=== PATIENT | female | born 1940 | race Caucasian/White ===

== ENCOUNTER → 2018-10-22 13:54 | Outpatient (CLI) | payer MEDICARE, OTHER, BC, SELFPAY ==
--- NOTE | 2018-10-22 14:00 | US_ITS ---
STUDY: RENAL ULTRASOUND - COMPLETE REASON FOR EXAM: Female, 77 years old. Renal insufficiency. TECHNIQUE: Ultrasound evaluation of the kidneys was performed with real-time and static means-scale imaging. COMPARISON: None. FINDINGS: RIGHT KIDNEY: Normal location of the right kidney, which is normal in size. The right kidney measures 9.5 cm. There is a normal cortex of the right kidney. The renal cortex measures 1.3 cm. There is no right renal mass or cyst. There are no right renal calculi. There is no right hydronephrosis. DISTAL RIGHT URETER: There is non-visualization of the distal right ureter. There is no demonstrated right ureterovesical junction calculus. There is a visualized right ureteral jet. LEFT KIDNEY: Normal location of the left kidney, which is normal in size. The left kidney measures 9.0 cm. There is a normal cortex of the left kidney. The renal cortex measures 1.2 cm. There is no left renal mass or cyst. There are no left renal calculi. There is no left hydronephrosis. DISTAL LEFT URETER: There is non-visualization of the distal left ureter. There is no demonstrated left ureterovesical junction calculus. There is a visualized left ureteral jet. BLADDER: The distended urinary bladder has a volume of 128 ml. . There is a normal wall thickness of the distended urinary bladder. There is no demonstrated mass within the urinary bladder. There are no demonstrated bladder calculi. US/Kidney and Bladder IMPRESSION: Normal ultrasound of the kidneys and urinary bladder. Electronically Signed: Umberto Andrade DO at 18:50 EDT Tel [phone], Service support ,
== END ==
PROVIDERS: Family Provider Family Medicine; PCP Family Medicine; Referring Provider Urology; Visit Provider Urology
DX: N28.9 Disorder of kidney and ureter, unspecified (principal)
CPT/HCPCS: 76770

== ENCOUNTER 2019-06-16 11:37 | Inpatient (IN) | payer MEDICARE, OTHER, BC, SELFPAY ==
[2019-06-16] VITALS (27 sets, daily range): BP systolic 90–136; BP diastolic 33–77; PULSE 12–96; RESP 8–24; TEMP 35.9–36.6; O2SAT 44–100; BMI 41.8; BMI 40.6
[2019-06-16] MEDS: Sodium Bicarbonate 8.4% 50 ML Syringe 50 MEQ IV (11:37)
[2019-06-16] MEDS: Calcium Chloride 1 GM/10 ML Syringe IV ×2 (11:37→11:45)
--- NOTE | 2019-06-16 11:40 | EKG12_ITS ---
Test Reason : Blood Pressure : / mmHG Vent. Rate : 058 BPM Atrial Rate : 078 BPM P-R Int : 000 ms QRS Dur : 150 ms QT Int : 438 ms P-R-T Axes : 000 118 -19 degrees QTc Int : 429 ms Wide QRS rhythm Right axis deviation Non-specific intra-ventricular conduction block Abnormal ECG Confirmed by MICHELLE BALTAZAR ([id number]), editorial manager BRITTNEY JACQUES ([id number]) on 06/19/2019 1:21:52 PM Referred By: NATTY Confirmed By:MICHELLE BALTAZAR
--- NOTE | 2019-06-16 11:44 | RAD_ITS ---
STUDY: X-RAY CHEST REASON FOR EXAM: Female, 78 years old. CENTRAL LINE PLACEMENT, ETT PLACEMENT, OG PLACEMENT TECHNIQUE: Single AP portable view of the chest. COMPARISON: None. FINDINGS: A right-sided central line has been placed. The tip is in the right atrium. An endotracheal tube is in situ. The tip is at the level of the lionel. It should be withdrawn approximately 3.5 cm. A nasogastric tube is seen with the tip in the body of the stomach. Small left pleural effusion with underlying atelectasis. Blunting of the right costophrenic angle. Normal size heart. Normal mediastinum and analisa. Normal visualized pulmonary arteries. There is atherosclerotic calcification of the aortic arch with tortuosity. There are diffuse degenerative changes of the visualized thoracic spine. There is degenerative osteoarthritis of the bilateral shoulders. There is no demonstrated abnormality of the visualized soft tissue structures of the upper abdomen. RAD/CXR for Line Placement IMPRESSION: The tip of the right central catheter is in the right atrium. The tip of the endotracheal tube is at the level of the lionel. It should be withdrawn approximately 3.5 cm. Small bilateral effusions with increased markings at the left lung base. Electronically Signed: Yonatan Howe, at 13:09 EST , Service support ,
--- NOTE | 2019-06-16 11:44 | CM.ED ---
Social Work Consult: Support Informant: Self-Referral Met with patient family. Introduced self and social service agency director role. Active listening and support provided. Per patient daughter, Iman patient is from [facility] and has been there for the past three days. Unclear if the plan is for patient to be long-term at [facility]. Maxwell Kaur MSW, DAREN
[2019-06-16] MEDS: Insulin Lispro 5 UNIT in Syringe 0 ML 3 UNIT IV (11:45)
--- NOTE | 2019-06-16 11:45 | EKG12_ITS ---
Test Reason : Blood Pressure : / mmHG Vent. Rate : 080 BPM Atrial Rate : 267 BPM P-R Int : 000 ms QRS Dur : 176 ms QT Int : 422 ms P-R-T Axes : 000 124 -32 degrees QTc Int : 486 ms Atrial fibrillation Non-specific intra-ventricular conduction block Lateral infarct , age undetermined Abnormal ECG Confirmed by MICHELLE BALTAZAR ([id number]), publication editor HIGINIO CASTAÑEDA ([id number]) on 06/19/2019 8:25:19 AM Referred By: NATTY Confirmed By:MICHELLE BALTAZAR
--- NOTE | 2019-06-16 11:53 | EKG12_ITS ---
Test Reason : Blood Pressure : / mmHG Vent. Rate : 093 BPM Atrial Rate : 100 BPM P-R Int : 000 ms QRS Dur : 164 ms QT Int : 454 ms P-R-T Axes : 000 133 -38 degrees QTc Int : 564 ms Suspect arm lead reversal, interpretation assumes no reversal Wide QRS rhythm Non-specific intra-ventricular conduction block Lateral infarct , age undetermined Abnormal ECG Confirmed by MICHELLE BALTAZAR ([id number]), research editor BRITTNEY JACQUES ([id number]) on 06/19/2019 1:21:41 PM Referred By: NATTY Confirmed By:MICHELLE BALTAZAR
[2019-06-16 11:58] LABS: Absolute Lymphocyte Count 1.64 X10^3/uL (0.83-4.51); Absolute Neutrophil Count 13.4 X10^3/uL (2.0-7.7); Basophil# 0.05 X10^3/uL; Basophil% 0.3 % (0-1); Eosinophil# 0.01 X10^3/uL; Eosinophils% 0.1 % (0-5); Hematocrit 30.1 % (37-47); Hemoglobin 8.9 g/dL (12.0-15.0); Lymphocyte # 1.64 X10^3/ul (4.0); Lymphocyte % 10.2 % (19-41); Mean Corp Hgb Conc 29.6 g/dL (32-36); Mean Corpuscular Hgb 31.9 pg (27.0-32.0); Mean Corpuscular Volume 107.9 fL (81-99); Mean Platelet Vol. 10.2 fl (6.2-12.0); Monocyte# 0.84 X10^3/uL; Monocyte% 5.2 % (0-10); NRBC Flagged by Analyzer 0.4 % (0-5); Neutrophil # 13.38 X10^3/uL (2.7-7.7); Neutrophil % 83.5 % (47-70); POSITIVE MORPHOLOGY YES; Platelet Count 449 K/mm3 (150-450); RBC Distribution Width CV 21.1 % (11.6-14.6); RBC Distribution Width SD 82.2 fl (35.1-43.9); Red Blood Count 2.79 M/mm3 (4.2-5.4)
[2019-06-16 12:00] LABS: Differential Indicated SCAN CRITERIA MET
[2019-06-16] MEDS: Etomidate 20 MG/10 ML Vial IV (12:00)
[2019-06-16 12:05] LABS: Prothrombin Time (Protime)PT. 36.2 SECONDS (11.7-14.9)
[2019-06-16] MEDS: fentaNYL 100 MCG/2 ML Ampul 50 MCG IV (12:05)
[2019-06-16 12:06] LABS: Partial Thromboplast Time 46.3 Seconds (24.1-36.2)
[2019-06-16 12:07] LABS: International Normalized Ratio 3.6
[2019-06-16] MEDS: Etomidate 20 MG/10 ML Vial 10 MG IV (12:14)
[2019-06-16 12:18] LABS: Anisocytosis 1+
--- NOTE | 2019-06-16 12:18 | ED.DCSUM_ITS ---
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 Location: Presents by squad from nursing facility Current Severity: Severe Maximum Severity: Severe Worsened by: Potassium 7.2 Relieved by: Nothing Associated Symptoms: Unable to determine Narrative: Woman who presents from nursing facility because of hyperkalemia. She became unresponsive in route. EKG that was sent by paramedics show a wide-complex bradycardic rhythm consistent with hyperkalemia. They were instructed to give 1 amp of calcium chloride and bicarb. Since a IV was not established she received nothing prior to presentation. She was moaning when she arrived. She appears pale and ashen with mottling of the extremities. Prior similar symptoms: No Recent Illness/Hospitalization: Yes - Past Medical History (1) History of respiratory failure with hypo Status: Acute (2) Acute kidney injury Status: Acute (3) Type 1 diabetes Status: Acute (4) Hypertension Status: Chronic (5) Hyperlipidemia Status: Acute (6) Paroxysmal atrial fibrillation Status: Acute (7) Sick sinus syndrome Status: Acute (8) Anticoagulant long-term use Status: Acute (9) Anemia, unspecified Status: Acute Past Medical History - Allergies and Home Meds Allergies/Adverse Reactions: Allergies Penicillins [PCN] Allergy (Verified 06/16/19 11:51) Other shellfish derived Allergy (Verified 06/16/19 11:53) Other Prior records reviewed: Yes - Records from nursing facility were reviewed Surgical History: noncontributory Lives: Skilled Nursing Review of Systems ROS: Unable to Obtain Physical Exam Vital Signs/Narrative: Vital Signs Temp Pulse Resp BP Pulse Ox 06/16/19 12:00 98 06/16/19 11:47 98 06/16/19 11:44 96.7 F L 84 22 H 136/77 H 98 06/16/19 11:39 91 24 H 136/77 H 100 Inital Vital Signs reviewed: Yes - Blood pressure was obtained after IV calcium chloride, 1 amp of bicarb General: Well nourished, Well developed, Obese, Acute Distress Head: Normocephalic, Atraumatic Eyes: Perrl, EOMI, Pale conjunctiva. Negative for: Scleral icterus ENT: TM's clear, Dry mucous membranes Neck: Supple, Nontender, No lymphadenopathy, No JVD Cardiovascular: Bradycardia Respiratory: Chest nontender, Rales Abdomen: Soft, Nondistended, Hypoactive bowel sounds Extremities: No edema Skin: Pallor, - - Mottled and ashed Neurological: - - To determine GCS 6. Negative for: Normal Gait Diagnostic/Tx/Re-eval Chest X-Ray - ED: 1 View, Read by ED Physician, - - Tracheal tube is 1 cm above the lionel. The orogastric tube is in proper position. Cardiac silhouette and cardiac size are within normal limits. There is no infiltrate or evidence of congestive heart failure. There is no effusion. There is no mention pneumothorax. Osseous structures reveal degenerative changes. 06/16/19 11:44 Chest 1 View (Portable) [RAD] Stat Laboratory Results 06/16/19 06/16/19 06/16/19 11:45 11:45 11:45 WBC 16.0 H RBC 2.79 L Hgb 8.9 L Hct 30.1 L MCV 107.9 H MCH 31.9 MCHC 29.6 L RDW Std Deviation 82.2 H RDW Coeff of Alicia 21.1 H Plt Count 449 MPV 10.2 Immature Gran % (Auto) 0.700 Neut % (Auto) 83.5 H Lymph % (Auto) 10.2 L Yates % (Auto) 5.2 Eos % (Auto) 0.1 Baso % (Auto) 0.3 Absolute Neuts (auto) 13.4 H Absolute Lymphs (auto) 1.64 Nucleated RBC % 0.4 Anisocytosis 1+ PT 36.2 H INR 3.6 H* APTT 46.3 H Sodium 135 L Potassium 7.5 H* Chloride 102 Carbon Dioxide 28.0 Anion Gap 5 BUN 52 H Creatinine 2.43 H Estim Creat Clear Calc 17.57 Est GFR (MDRD) Af Amer 25 L Est GFR (MDRD) Non-Af 20 L BUN/Creatinine Ratio 21.4 H Glucose 223 H Lactic Acid Calcium 10.9 H Total Bilirubin 1.40 H AST 119 H ALT 82 H Alkaline Phosphatase 165 H Troponin I 0.015 Total Protein 8.1 Albumin 1.8 L Globulin 6.3 H Albumin/Globulin Ratio 0.3 L 06/16/19 11:45 WBC RBC Hgb Hct MCV MCH MCHC RDW Std Deviation RDW Coeff of Alicia Plt Count MPV Immature Gran % (Auto) Neut % (Auto) Lymph % (Auto) Yates % (Auto) Eos % (Auto) Baso % (Auto) Absolute Neuts (auto) Absolute Lymphs (auto) Nucleated RBC % Anisocytosis PT INR APTT Sodium Potassium Chloride Carbon Dioxide Anion Gap BUN Creatinine Estim Creat Clear Calc Est GFR (MDRD) Af Amer Est GFR (MDRD) Non-Af BUN/Creatinine Ratio Glucose Lactic Acid 4.5 H* Calcium Total Bilirubin AST ALT Alkaline Phosphatase Troponin I Total Protein Albumin Globulin Albumin/Globulin Ratio INR is 3.6 which is elevated most likely secondary to Coumadin. This may be elevated because she is on antibiotics. Lactate is elevated 4.5 and consistent with poor perfusion. Potassium is 7.5 with a creatinine of 2. 4 3.. Patient's QRS complex has improved. EKG that was obtained after treatment reveals atrial fibrillation with ventricular rate of 80. There is a nonspecific inverted ventricular conduction delay. There is no ossific ST-T wave changes noted. There is no old for comparison. Patient complexes changed. The QRS complex widened to 176 ms. She is still in atrial fibrillation. She received an additional amp of calcium chloride. - Medical Decision Making On arrival an IO was placed right proximal humerus. Calcium chloride and 1 amp of bicarb was administered. Since patient is requiring continuous treatment and will need blood draws a right subclavian line was placed. Prior to starting the right subclavian line patient respiratory effort diminished. Pulse ox dropped. She became less responsive. Patient was prepped for oral tracheal intubation. She was easily orotracheal intubated with a 7.5 Slovak endotracheal tube Once airway was secured patient was prepped draped in a sterile manner and per hospital protocol for placement of a subclavian line. Prior to placing the subclavian line attempt was made at external jugular which was unsuccessful. The right subclavian vein was cannulated successfully on first attempt on the way in. Using Salinger technique 7.5 Slovak triple-lumen was placed. Blood was aspirated from all 3 ports. Will obtain x-ray to confirm placement of endotracheal tube, orogastric tube and right subclavian line. Case was discussed with the percussion instructor. He is aware that the electrolyte panel was still pending. Prior to intubation and placement of central line daughter who is the POA was informed of her mother's condition. She states her mother is a full go. She understands the severity of her illness. - Critical Care Time Critical care time (excluding procedures): 30-74 minutes, Discussing w/Patient &/or Family/Data Entry Associate - Case was discussed with daughter who is the POA. She was informed of the criticalness and severity of mother's illness., Discussing w/Consultants - Spoke with Dr. El Cruz and hospitalist., Arranging Admission or Transfer, Performing Direct Patient Care at Bedside - Patient for hyperkalemia. Procedures Procedure(s): 1. IO was placed proximal right humerus to administer calcium chloride and bicarb because patient was bradycardic with wide complex QRS. The QRS complex improved after the amp of calcium chloride and amp of bicarb. 2. Patient was intubated with a 7.5 Slovak endotracheal tube using glide scope and was pretreated with 20 mg of etomidate and placed on a nonrebreather mask. She was easily orotracheally abated first pass. There is appropriate color change on the capnometer. Breath sounds are noted bilaterally. 3. Orogastric tube was placed by me. 4. Right subclavian line was placed for central venous access. Guidelines were adhered to. All members in the room were wearing mask and capped. The right subclavian line was cannulated specimen on the way in. Using Salinger technique 7.5 Slovak triple-lumen was placed. Blood was aspirated from all 3 ports. Line was sutured in place. Will obtain chest x-ray to confirm placement of endotracheal tube, OG and right subclavian triple-lumen line. ED Disposition - Plan for ED Patient: Disposition: Acute Care [facility] Diagnosis: Acute hyperkalemia, Shock, cardiogenic, Renal failure (ARF), acute on chronic, Hyperglycemia due to type 1 diabetes mellitus, Anemia, unspecified, Atrial fibrillation by electrocardiogram
[2019-06-16 12:25] LABS: ALB/GLOB Ratio 0.3 RATIO (0.9-2.4); AST(SGOT) 119 U/L (15-37); Alanine Aminotransfer ALT/SGPT 82 U/L (13-56); Albumin, Serum 1.8 g/dL (3.2-5.0); Alkaline Phosphatase 165 U/L (45-117); Anion Gap 5 (5-15); BUN 52 mg/dL (7-18); BUN/Creat Ratio 21.4 RATIO (10-20); Calcium,Total 10.9 mg/dL (8.5-10.1); Chloride 102 mmol/L (98-107); Creatinine, Serum 2.43 mg/dL (0.55-1.02); EST Glomerular Filtration Rate 20 mL/min (>60); Est Glom Filt Rate - Afr Amer 25 mL/min (>60); Estimated Creatinine Clearance 17.57 ml/min; Globulin 6.3 g/dL (2.2-4.2); Glucose 223 mg/dL (74-106); Lactic Acid 4.5 mmol/L (0.4-1.9); Potassium 7.5 mmol/L (3.5-5.1); Protein, Total 8.1 g/dL (6.4-8.2); Sodium Level 135 mmol/L (136-145)
[2019-06-16] MEDS: fentaNYL drip 100 ML 2.5 MCG IV (12:25)
--- NOTE | 2019-06-16 12:36 | ED.RN ---
Addendum entered by Mary Harvey 06/16/19 15:18: verbal order at [address] Hill to titrate from 25 mcg/hr to 50 mcg/hr of fentanyl- see MAR. Addendum entered by Mary Harvey 06/16/19 14:02: Original Note: notified MD of pt restless and breathing over the ventilator. order to follow fentanyl titration.
--- NOTE | 2019-06-16 13:00 | ED.RN ---
PT suctioned per family request. Iman VALLE and Granddaughter Umm, attentive at bedside. Dr. Hill in to speak with them about pt's POC.
[2019-06-16] MEDS: Propofol 200 MG/20 ML Vial 40 MG IV BOLUS ×3 (13:03→14:01)
--- NOTE | 2019-06-16 13:11 | ED.RN ---
IO REMOVED BY WILBERT SANTORO
--- NOTE | 2019-06-16 13:15 | ED.RN ---
noted that pt has spiralactone and potassium ordered on JUL from [facility]. notified.
--- NOTE | 2019-06-16 13:31 | ED.RN ---
called report to Phyllis in ICU
[2019-06-16] MEDS: Propofol 10MG/Ml 1,000 MG/100 ML Bottle 7.1 MG CONT INF (13:46)
--- NOTE | 2019-06-16 14:42 | RAD_ITS ---
STUDY: X-RAY CHEST REASON FOR EXAM: Female, 78 years old. LINE AND OG PLACEMENT/ ADJUSTMENT TECHNIQUE: AP portable upright view of the chest and upper abdomen on 2 films. COMPARISON: AP portable chest x-ray 1246 hours. FINDINGS: Endotracheal tube tip is just above the lionel, aimed towards the ostium of the right mainstem bronchus. Distal nasogastric tube is in the stomach. The right central venous catheter tip is in the superior vena cava. There is persistent small left pleural effusion with probable atelectasis in the adjacent lung base, as well as persistent hazy density in the medial right base that may be pleural effusion and/or airspace disease. Infection is not excluded. Subtle patchy density now suggested also in the right midlung. The heart size is upper normal. Normal mediastinum and analisa. Normal visualized upper lobe pulmonary arteries. There is atherosclerotic calcification of the aortic arch and descending thoracoabdominal aorta. There are stable degenerative changes and minor dextro scoliosis of the visualized thoracic spine. 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 There is no demonstrated abnormality of the visualized soft tissue structures of the upper abdomen. RAD/Chest 1 View (Portable) IMPRESSION: Stable x-ray examination of the chest. Tip of the endotracheal tube remains near the lionel, aimed at the right mainstem bronchus. Electronically Signed: Burt Lou MD at 16:54 EST , Service support ,
--- NOTE | 2019-06-16 14:47 | PCM.CON.CC ---
Problem List (1) Acute hyperkalemia Status: Acute (2) Atrial fibrillation by electrocardiogram Status: Acute (3) Renal failure (ARF), acute on chronic Status: Chronic (4) Acute kidney injury Status: Acute (5) Paroxysmal atrial fibrillation Status: Acute (6) Sick sinus syndrome Status: Acute (7) Type 1 diabetes Status: Acute (8) Hypertension Status: Chronic Reason for Consult Date of Consultation: 06/16/19 Reason for Consultation: Respiratory failure History of Present Illness: The patient is a 78 year old F, with past medical history listed below, who presented to [facility] on 06/16/2019 secondary to abnormal labs. Patient reportedly was at an outside residential and was being monitored for hyperkalemia. Patient reportedly had a potassium of 7.2 and was to come in for evaluation. Patient reportedly became unresponsive in route with a wide complex bradycardic rhythm. They were instructed to give 1 amp of calcium chloride and bicarbonate, but did not have IV access. ED course is somewhat unclear at this time. Patient reportedly had an IO placed immediately on arrival and was given bicarbonate and calcium chloride. Patient was also reportedly on 2 L nasal cannula initially, but became unresponsive and desaturated requiring intubation. Patient is on Coumadin therapy at baseline secondary to paroxysmal A. fib. Patient did have a right subclavian line placed for access and the IO was removed. Laboratory work-up showed a significant leukocytosis of 16, elevated INR of 3.6 and a potassium of 7.5. Creatinine was 2.4, but previous labs are not available for review. Patient's lactate was elevated at 4.5 and mild elevation in liver enzymes were reported. Patient does have a significantly depressed albumin of 1.8. On arrival to the intensive care unit, patient is intubated and sedated. No family is at the bedside. There is some report of patient being admitted at [facility] for a skin condition leading to renal dysfunction. It is unclear patient was at [facility] at this time. Past Medical History Past Medical History (Chronic Problems): Chronic Problems Hypertension (Chronic) Renal failure (ARF), acute on chronic (Chronic) Allergies Penicillins [PCN] Allergy (Verified 06/16/19 11:51) Other shellfish derived Allergy (Verified 06/16/19 11:53) Other Home Medications: Ambulatory Orders Medication Instructions Recorded Acetaminophen 500 mg PO TID 06/16/19 Alendronate Sodium 70 mg PO QWEEK 06/16/19 Apixaban [Eliquis] 5 mg PO BID 06/16/19 Clonazepam [Klonopin] 0.5 mg PO QHS 06/16/19 Doxycycline 100 mg PO BID 06/16/19 Famotidine 20 mg PO DAILY 06/16/19 Flecainide Acetate 50 mg PO BID 06/16/19 Insulin Lispro [Humalog KwikPen] 100 unit SQ BID 06/16/19 Ipratropium/Albuterol Sulfate 3 ml INHALATION Q4H.RT PRN 06/16/19 [Duoneb] Lisinopril [Zestril] 10 mg PO DAILY 06/16/19 Magnesium Oxide [Magnesium] 400 mg PO BID 06/16/19 Metolazone 2.5 mg PO DAILY 06/16/19 Metoprolol Tartrate 25 mg PO BID 06/16/19 Simvastatin 40 mg PO QHS 06/16/19 Spironolactone 100 mg PO BID 06/16/19 predniSONE tablet 20 mg PO DAILY 06/16/19 traZODone [Desyrel] 50 mg PO QHS 06/16/19 Surgical History: noncontributory Lives: [facility] Smoking Status: Former smoker Review of Systems Unable to obtain accurate/complete ROS d/t: Intubated and sedated Patient Problems: Active and Suspected Problems Anemia, unspecified (Acute) Acute hyperkalemia (Acute) Shock, cardiogenic (Acute) Hyperglycemia due to type 1 diabetes mellitus (Acute) Atrial fibrillation by electrocardiogram (Acute) Objective: Chest x-ray was personally reviewed and shows the central line in the inferior vena cava. Endotracheal tube is slightly low. - Physical Exam Vitals/I&O's: Vital Signs Temp Pulse Resp BP Pulse Ox 35.9 C L 51 L 12 117/64 100 06/16/19 11:44 06/16/19 13:06 06/16/19 13:06 06/16/19 13:06 06/16/19 13:06 Oxygen Flow Rate (L/min) 2 Oxygen Delivery Method Mechanical Ventilator Weight: 117.5 kg Body Mass Index (BMI) 41.8 Finger Stick Blood Glucose 211 Intake and Output for Last 24 Hours 06/14/19 06/15/19 06/16/19 23:59 23:59 23:59 Intake Total 2.91 / 2.91 Balance 2. / 2.91 General: - - Intubated and sedated. Good vent synchrony. Morbidly obese. HEENT: Atraumatic, PERRLA, EOMI, Normocephalic, - - No scleral icterus or injection noted Oral: Moist Mucosa, No Gingival or Mucosal Lesions/ Ulcerations Neck: Supple, No JVD, No Nodes, Trachea Midline Lungs: No rhonchi, No wheeze, No rales, Diminished, - - Symmetric expansion. No dullness to percussion. Cardiovascular: Normal S1, Normal S2, No murmurs, Irregular Rate, No rub noted, No Gallop Abdomen: Bowel Sounds Present, Soft, Non Tender, Non-Distended, Obese Extremities: No clubbing, No cyanosis, Edema - Lower extremities wrapped with Patrick bandage Skin: No rashes, No breakdown Musculoskeletal: No Tenderness to Palpation of Joints or Extremities Lymphatic: No Cervical, Supraclavicular, or Inguinal Adenopathy Neurological: Neuro grossly intact - Patient not following commands, but currently sedated. Psych/Mental Status: Flat Affect Laboratory Results 06/16/19 11:45: WBC 16.0 H, RBC 2.79 L, Hgb 8.9 L, Hct 30.1 L, MCV 107.9 H, MCH 31.9, MCHC 29.6 L, RDW Std Deviation 82.2 H, RDW Coeff of Alicia 21.1 H, Plt Count 449, MPV 10.2, Immature Gran % (Auto) 0.700, Neut % (Auto) 83.5 H, Lymph % (Auto) 10.2 L, [place] % (Auto) 5.2, Eos % (Auto) 0.1, Baso % (Auto) 0.3, Absolute Neuts (auto) 13.4 H, Absolute Lymphs (auto) 1.64, Nucleated RBC % 0.4, Anisocytosis 1+ 06/16/19 11:45: PT 36.2 H, INR 3.6 H*, APTT 46.3 H 06/16/19 11:45: Sodium 135 L, Potassium 7.5 H*, Chloride 102, Carbon Dioxide 28.0, Anion Gap 5, BUN 52 H, Creatinine 2.43 H, Estim Creat Clear Calc 17.57, Est GFR (MDRD) Af Amer 25 L, Est GFR (MDRD) Non-Af 20 L, BUN/Creatinine Ratio 21.4 H, Glucose 223 H, Calcium 10.9 H, Total Bilirubin 1.40 H, AST 119 H, ALT 82 H, Alkaline Phosphatase 165 H, Troponin I 0.015, Total Protein 8.1, Albumin 1.8 L, Globulin 6.3 H, Albumin/Globulin Ratio 0.3 L 06/16/19 11:45: Lactic Acid 4.5 H* Current Medications Fentanyl () 100 mls @ 2.5 mls/hr IV UD [facility]; Protocol Last Titration: 06/16/19 13:04 Dose: 75 mcg/hr, 7.5 mls/hr Documented by: Clinical Impression(s) from Imaging Studies Chest X-Ray 06/16/19 11:44 IMPRESSION: The tip of the right central catheter is in the right atrium. The tip of the endotracheal tube is at the level of the lionel. It should be withdrawn approximately 3.5 cm. Small bilateral effusions with increased markings at the left lung base. Electronically Signed: Yonatan Howe, at 13:09 EST , Service support , Assessment/Plan Active and Suspected Problems Anemia, unspecified (Acute) Acute hyperkalemia (Acute) Shock, cardiogenic (Acute) Hyperglycemia due to type 1 diabetes mellitus (Acute) Atrial fibrillation by electrocardiogram (Acute) RECOMMENDATIONS: 1. Continue propofol and fentanyl for sedation 2. Spontaneous awakening and breathing trials per protocol 3. Attempt to clarify past medical history 4. Okay to continue with prednisone for now 5. Hold home lisinopril 6. Consider cardiology consult given A. fib with flecainide therapy 7. Repeat BMP now IMPRESSIONS: 1. Acute hypoxic respiratory failure Unclear etiology at this time. Patient reportedly was saturating well on presentation, but then was described as mottled and emergently intubated. Patient was bradycardic with an elevated lactate. Unclear if this is related to complications of hyperkalemia versus a primary respiratory arrest. Reasonable to continue patient on prednisone therapy if this was given previously. Very poor history at this time. History is very limited. Patient does have a body habitus that would be suggestive of obstructive sleep apnea. Patient appears to be on asthma type medications, but no pulmonary function tests are available for review. 2. Possible acute kidney injury/hyperkalemia Significant hyperkalemia on presentation. Unclear if this is related to a respiratory arrest with acidosis. Patient did not receive an ABG prior to intubation, but ABG following intubation shows adequate oxygenation and ventilation on minimal vent settings. Would repeat BMP to see what current potassium level is. Patient may require evaluation by nephrology. Patient does not appear to have significant changes on telemetry. Recommend checking magnesium level. 3. Reported insulin-dependent diabetes mellitus Patient does not have an anion gap at this time, but glucose is somewhat elevated. Patient reportedly is on prednisone therapy at this time and this may account for current findings. Will treat with sliding scale insulin for now. Hold off on Lantus. We will hold off on tube feeds to see if patient could potentially be extubated tomorrow. 4. A. fib with bradycardia Baseline cardiac function is unclear at this time. Patient reportedly is on flecainide therapy. No echocardiogram is available for review. Consider cardiology evaluation and echocardiogram. Patient is currently normotensive. ER is reporting that the patient was on warfarin, but med list is currently stating Eliquis. Patient is currently on spironolactone and Lasix, which would be suggestive of a dilated cardiomyopathy. 5. Possible GERD/anxiety/osteopenia/hypertension/hypercholesterolemia/morbid obesity/poor history Complicates care, management, recovery and prognosis. Baseline medications used to hypothesize some baseline medical conditions. Await for POA to arrive to provide more history. TIME: 37 minutes critical care time spent addressing patient's acute hypoxic respiratory failure, possible acute kidney injury, hyperkalemia, review of all data and collaboration with care team (2:15 PM to 3:11 PM) Code Visit 9xxxx: [id number] Critical care first hour
[2019-06-16 14:56] LABS: Allen Test POS; Base Excess 2 mmol/L (-2 to +2); Bicarbonate 26.8 mmol/L (22-26); Blood Gas Specimen Type ART; FI02 30; Mode A-C; O2 Delivery Device Vent; PEEP 5; PO2 119 mmHG (75-100); RR 12; SITE R Radial; SO2 99 % (95-99); Time Given 1448; Total Carbon Dioxide 28 mmol/L; Vt 450; pCO2 44.1 mmHg (35-45); pH 7.39 (7.35-7.45)
--- NOTE | 2019-06-16 15:24 | HP.PCM_ITS ---
History of Present Illness Date of Admission: 06/16/19 Chief Complaint: abnormal labs The patient is a 78 year old F presents from [facility] with high potassium. In route, patient became unresponsive and CPR was initiated. Brought to the emergency room and a potassium was noted to be 7.2. Given the tenuous situation, patient was intubated. For the potassium, patient received calcium chloride, IV insulin, sodium bicarbonate. Discussed with the patient's daughter, patient was recently discharged from [facility] to a alf facility. Patient was in [facility] for a foot infection that led to significant bacteremia with methicillin sensitive staph aureus. Currently, the patient was on doxycycline. Daughter states that the patient had been on potassium but was stopped over at [facility] but then continued at the nursing facility. Patient had a right humeral intraosseous IV placed and then underwent a right subclavian triple-lumen catheter with a 20 cm line placed all the way to the hub at her skin. [] Past Medical History Past Medical History (Chronic Problems): Chronic Problems Hypertension (Chronic) Renal failure (ARF), acute on chronic (Chronic) Medical History: Medical History (Last Updated 06/16/19 @ 15:29 by Andrews Martinez DO) Anemia D64.9 DM2 (diabetes mellitus, type 2) E11.9 GERD (gastroesophageal reflux disease) K21.9 CKD (chronic kidney disease) N18.9 COPD (chronic obstructive pulmonary disease) J44.9 HTN (hypertension) I10 Allergies Penicillins [PCN] Allergy (Verified 06/16/19 11:51) Other shellfish derived Allergy (Verified 06/16/19 11:53) Other Home Medications: Ambulatory Orders Medication Instructions Recorded Acetaminophen 1,000 mg PO TID 06/16/19 Albuterol Sulfate 2.5 mg IH BID 06/16/19 Albuterol Sulfate 2.5 mg IH Q4H PRN PRN 06/16/19 Alendronate Sodium 70 mg PO ELIZONDO 06/16/19 Apixaban [Eliquis] 5 mg PO BID 06/16/19 Clonazepam [Klonopin] 0.5 mg PO QHS 06/16/19 Dextromethorphan-Guaifenesin 10 ml PO Q4H PRN PRN 06/16/19 10-100/5ml Doxycycline 100 mg PO BID 06/16/19 Famotidine 20 mg PO DAILY 06/16/19 Flecainide Acetate 50 mg PO BID 06/16/19 Fluticasone/Salmeterol [Airduo 1 puff IH BID 06/16/19 Respiclick 113-14 Mcg] Insulin Glargine,Hum.rec.anlog 15 unit SQ QHS 06/16/19 [Basaglar Kwikpen U-100] Insulin Lispro [Humalog KwikPen] 100 unit SQ 0730,1630 06/16/19 Ipratropium/Albuterol Sulfate 3 ml INHALATION Q6H PRN PRN 06/16/19 [Duoneb] Lisinopril [Zestril] 10 mg PO DAILY 06/16/19 Magnesium Oxide [Magnesium] 400 mg PO BID 06/16/19 Metolazone 2.5 mg PO DAILY 06/16/19 Metoprolol Tartrate 25 mg PO BID 06/16/19 Simvastatin 40 mg PO QHS 06/16/19 Spironolactone 100 mg PO BID 06/16/19 predniSONE tablet 20 mg PO DAILY 06/16/19 traZODone [Desyrel] 50 mg PO QHS 06/16/19 Surgical History: noncontributory 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 VTE Information - Inpt Only VTE Present on Admission: No VTE Mechan Device Prophylaxis: None VTE Pharm Prophylaxis ordered?: No Patient Problems: Active and Suspected Problems Anemia, unspecified (Acute) Acute hyperkalemia (Acute) Shock, cardiogenic (Acute) Hyperglycemia due to type 1 diabetes mellitus (Acute) Atrial fibrillation by electrocardiogram (Acute) - Physical Exam Vitals/I&O's: Vital Signs Temp Pulse Resp BP Pulse Ox 35.9 C L 51 L 12 117/64 100 06/16/19 11:44 06/16/19 13:06 06/16/19 13:06 06/16/19 13:06 06/16/19 13:06 Oxygen Flow Rate (L/min) 2 Oxygen Delivery Method Mechanical Ventilator Weight: 117.5 kg Body Mass Index (BMI) 41.8 Finger Stick Blood Glucose 211 Intake and Output for Last 24 Hours 06/14/19 06/15/19 06/16/19 23:59 23:59 23:59 Intake Total 2.91 / 2.91 Balance 2.91 / 2.91 General: - - Debated and sedated. Afebrile. HEENT: Atraumatic, EOMI Oral: - - endotracheal tube and gastric tube in place. Neck: No Nodes, Trachea Midline Lungs: Clear to auscultation, Normal air movement, No rhonchi, No wheeze, No rales Cardiovascular: Regular rate, Regular Rhythm, Normal S1, Normal S2, No murmurs Abdomen: Bowel Sounds Present, Soft, Non Tender, Non-Distended, No Hepato-splenomegaly Extremities: No edema, No Calf Tenderness Skin: No rashes, No breakdown Musculoskeletal: No Tenderness to Palpation of Joints or Extremities, No Muscle Wasting Neurological: Muscle tone normal, - - no clonus Laboratory Results 06/16/19 11:45: WBC 16.0 H, RBC 2.79 L, Hgb 8.9 L, Hct 30.1 L, MCV 107.9 H, MCH 31.9, MCHC 29.6 L, RDW Std Deviation 82.2 H, RDW Coeff of Alicia 21.1 H, Plt Count 449, MPV 10.2, Immature Gran % (Auto) 0.700, Neut % (Auto) 83.5 H, Lymph % (Auto) 10.2 L, [place] % (Auto) 5.2, Eos % (Auto) 0.1, Baso % (Auto) 0.3, Absolute Neuts (auto) 13.4 H, Absolute Lymphs (auto) 1.64, Nucleated RBC % 0.4, Anisocyto sis 1+ 06/16/19 11:45: PT 36.2 H, INR 3.6 H*, APTT 46.3 H 06/16/19 11:45: Sodium 135 L, Potassium 7.5 H*, Chloride 102, Carbon Dioxide 28.0, Anion Gap 5, BUN 52 H, Creatinine 2.43 H, Estim Creat Clear Calc 17.57, Est GFR (MDRD) Af Amer 25 L, Est GFR (MDRD) Non-Af 20 L, BUN/Creatinine Ratio 21.4 H, Glucose 223 H, Calcium 10.9 H, Total Bilirubin 1.40 H, AST 119 H, ALT 82 H, Alkaline Phosphatase 165 H, Troponin I 0.015, Total Protein 8.1, Albumin 1.8 L, Globulin 6.3 H, Albumin/Globulin Ratio 0.3 L 06/16/19 11:45: Lactic Acid 4.5 H* 06/16/19 14:53: Specimen Type ART, Sample Site R Radial, pH 7.39, Bicarbonate Actual 26.8 H, POC Total CO2 28, Base Excess 2, O2 Saturation 99, O2 % 30, ABG pCO2 44.1, ABG pO2 119 H, Todd Test POS, Respiration Rate 12, O2 Delivery Device Vent, Vent Mode A-C, Tidal Volume 450, POC PEEP 5, Blood Gas Notified Whom ICU MD, Blood Gas Notified Time 1448 Initial chest x-ray reviewed and showed the endotracheal tube above the lionel. The right subclavian triple-lumen catheter was all the way into the atrium, and on my measurements, was 88 mm. Subsequent chest x-ray showed appropriate withdrawal of the true lumen catheter above the atrium. Current Medications Fentanyl () 100 mls @ 2.5 mls/hr IV UD [facility]; Protocol Last Titration: 06/16/19 13:04 Dose: 75 mcg/hr, 7.5 mls/hr Documented by: Assessment/Plan All Active Problems History of respiratory failure with hypo (Acute) Acute kidney injury (Acute) Type 1 diabetes (Acute) Hyperlipidemia (Acute) Paroxysmal atrial fibrillation (Acute) Sick sinus syndrome (Acute) Anticoagulant long-term use (Acute) Anemia, unspecified (Acute) Acute hyperkalemia (Acute) Shock, cardiogenic (Acute) Hyperglycemia due to type 1 diabetes mellitus (Acute) Atrial fibrillation by electrocardiogram (Acute) 1. Hyperkalemia * Likely iatrogenic from spironolactone as well as potassium that she was receiving. Daughter reports that the potassium had stopped being given at [facility] but was being given at the halfway. Requesting records from [facility] has been placed and will see if the orders for discharge reflect what was being performed at [facility]. * Patient received calcium chloride, sodium bicarb as well as insulin in the emergency room. * Recheck potassium level and patient may benefit from Kayexalate. 2. Acute respiratory failure * Not hypoxic nor hypercapnic but exacerbated due to somnolence and need for airway protection * On the ventilator and doing well at this time. * Critical care on consult for further management 3. Chronic kidney disease stage IV * No baseline labs to compare to at this time. Currently awaiting lab work from [facility] to compare to. * Hold diuretics at this time and administer IV fluids 4. Lactic acidosis * Clinically not in septic shock. * Monitor * Fluids 5. Paroxysmal atrial fibrillation * atrial fibrillation at this time * continue with flecainide as well as metoprolol * Eliquis currently on hold given the supratherapeutic INR. Likely resume in the next 24 to 48 hours. 6. Recent bacteremia and cellulitis: Continue with the doxycycline as previously ordered through the . Once again follow-up records from [facility]. 7. VTE prophylaxis: Patient is already anticoagulated on apixaban. 8. IV malposition: Not true malfunction but the right subclavian triple-lumen catheter was 20cm device clearly marked on the hub and likely clearly marked on the packaging. The triple-lumen catheter was advanced all the way to the hub. On the x-ray, I measured it and it measured approximately 82 mm within the atrium. The triple-lumen catheter was pulled back by me roughly 9 cm and follow-up x-ray reveals good placement at this time. Dr. Hill informed me he would check the placement of the devices with CXR before transfer up to the floor. His note states, Will obtain chest x-ray to confirm placement of end otracheal tube, OG and right subclavian triple-lumen line. Though does not specify proper placement. Patient tolerated pulling back on the IV well. The IV sutures were first cut and then new ones placed at the new location. Code Visit Inpatient E&M: 44698 In Hosp L3
[2019-06-16 15:55] LABS: Reflex Lactate? Y
--- NOTE | 2019-06-16 16:07 | CHAPLAIN ---
Type of Pastoral Visit ___ Initial Visit ___ Follow-up Visit ___ On-call Visit ___ General Patient Visit ___ Spiritual Assessment ___ Family Conference ___ Bereavement _x__ Rapid Response ___ Code Blue ___ Other (describe below) Pastoral Care Referral From ___ Patient _x__ Family ___ Nurse ___ Physician _x__ Carbon Setter ___ Yard Brakeman ___ Other (describe below) Sacrament/Intervention ___ Active listening ___ Anointing ___ Rastafarian ___ Bereavement ___ Communion ___ Audra exploration ___ ___ Life review _x__ Prayer ___ Reconciliation ___ Sacrament of Sick _x__ Supportive presence ___ Wedding ___ Other (describe below) Pastoral Comments attended to family members as pt is being cared for my medical team; daughter requests prayer support and contact of lighting engineer of the patient; both completed; presence and listening ear
[2019-06-16 16:53] LABS: Anion Gap 2 (5-15); BUN 54 mg/dL (7-18); BUN/Creat Ratio 24.9 RATIO (10-20); Calcium,Total 9.7 mg/dL (8.5-10.1); Chloride 104 mmol/L (98-107); Creatinine, Serum 2.17 mg/dL (0.55-1.02); EST Glomerular Filtration Rate 23 mL/min (>60); Est Glom Filt Rate - Afr Amer 28 mL/min (>60); Estimated Creatinine Clearance 19.68 ml/min; Glucose 202 mg/dL (74-106); Magnesium 2.2 mg/dL (1.6-2.6); Potassium 7.1 mmol/L (3.5-5.1); Sodium Level 136 mmol/L (136-145)
[2019-06-16] MEDS: Sodium Bicarbonate 50 MEQ/50 ML Vial IV (19:53)
[2019-06-16] MEDS: Sodium Polystyrene Sulfonate 15 GM/60 ML UDC 30 GM NG (19:53)
[2019-06-16] MEDS: 0.9% Saline Lock 10 ML Syringe IV (19:54)
[2019-06-16] MEDS: Propofol 10MG/Ml 1,000 MG/100 ML Bottle 6.9 MG CONT INF (20:15)
[2019-06-16] MEDS: fentaNYL drip 100 ML 12.5 MCG IV (20:20)
[2019-06-16] MEDS: 0.9% Normal Saline 1,000 ML 150 ML IV (21:08)
[2019-06-16] MEDS: Chlorhexidine 15 ML PO (21:08)
[2019-06-16] MEDS: Doxycycline 100 MG CAPSULE GT (21:21)
[2019-06-16 22:27] LABS: Anion Gap 1 (5-15); BUN 54 mg/dL (7-18); BUN/Creat Ratio 25.4 RATIO (10-20); Calcium,Total 9.6 mg/dL (8.5-10.1); Chloride 107 mmol/L (98-107); Creatinine, Serum 2.13 mg/dL (0.55-1.02); EST Glomerular Filtration Rate 24 mL/min (>60); Est Glom Filt Rate - Afr Amer 29 mL/min (>60); Estimated Creatinine Clearance 20.05 ml/min; Glucose 194 mg/dL (74-106); Potassium 6.9 mmol/L (3.5-5.1); Sodium Level 139 mmol/L (136-145)
[2019-06-17] VITALS (36 sets, daily range): BP systolic 86–163; BP diastolic 27–82; PULSE 37–103; RESP 10–21; TEMP 36.3–36.6; O2SAT 96–100
[2019-06-17 00:06] LABS: Bedside Glucose 167 mg/dL (70-110)
[2019-06-17] MEDS: Insulin Lispro 100 UNIT/ML INSULN.PEN SC ×3 (00:06→23:54)
[2019-06-17] MEDS: 0.9% Normal Saline 1,000 ML 150 ML IV ×4 (03:21→23:52)
[2019-06-17 03:51] LABS: Absolute Lymphocyte Count 0.99 X10^3/uL (0.83-4.51); Absolute Neutrophil Count 9.9 X10^3/uL (2.0-7.7); Basophil# 0.02 X10^3/uL; Basophil% 0.2 % (0-1); Hematocrit 25.6 % (37-47); Lymphocyte # 0.99 X10^3/ul (4.0); Lymphocyte % 8.5 % (19-41); Mean Corp Hgb Conc 31.3 g/dL (32-36); Mean Corpuscular Hgb 31.7 pg (27.0-32.0); Mean Corpuscular Volume 101.6 fL (81-99); Mean Platelet Vol. 9.9 fl (6.2-12.0); Monocyte# 0.67 X10^3/uL; Monocyte% 5.7 % (0-10); NRBC Flagged by Analyzer 0 % (0-5); Neutrophil % 84.9 % (47-70); POSITIVE MORPHOLOGY YES; Platelet Count 297 K/mm3 (150-450); RBC Distribution Width SD 72.7 fl (35.1-43.9); Red Blood Count 2.52 M/mm3 (4.2-5.4); White Blood Count 11.7 K/mm3 (4.4-11.0)
[2019-06-17 04:00] LABS: International Normalized Ratio 2.3; Prothrombin Time (Protime)PT. 25.1 SECONDS (11.7-14.9)
[2019-06-17 04:23] LABS: ALB/GLOB Ratio 0.3 RATIO (0.9-2.4); AST(SGOT) 79 U/L (15-37); Alanine Aminotransfer ALT/SGPT 62 U/L (13-56); Albumin, Serum 1.4 g/dL (3.2-5.0); Alkaline Phosphatase 134 U/L (45-117); Anion Gap 5 (5-15); BUN 48 mg/dL (7-18); Calcium,Total 8.9 mg/dL (8.5-10.1); Chloride 106 mmol/L (98-107); EST Glomerular Filtration Rate 26 mL/min (>60); Est Glom Filt Rate - Afr Amer 31 mL/min (>60); Estimated Creatinine Clearance 21.35 ml/min; Globulin 4.8 g/dL (2.2-4.2); Glucose 153 mg/dL (74-106); Potassium 6.3 mmol/L (3.5-5.1); Protein, Total 6.2 g/dL (6.4-8.2); Sodium Level 140 mmol/L (136-145)
[2019-06-17 04:43] LABS: Differential Indicated SCAN CRITERIA MET
[2019-06-17 04:50] LABS: Acanthocytes RARE; Differential Comment SCANNED; Hypochromasia 2+; Macrocytosis 3+; Schistocytes RARE; Target Cells 1+
[2019-06-17 06:16] LABS: Bedside Glucose 135 mg/dL (70-110)
[2019-06-17] MEDS: fentaNYL drip 100 ML 7.5 MCG IV ×2 (06:41→21:08)
[2019-06-17] MEDS: 0.9% Saline Lock 10 ML Syringe IV ×2 (07:07→21:10)
[2019-06-17] MEDS: Furosemide 40 MG/4 ML Vial IV (07:07)
--- NOTE | 2019-06-17 07:17 | PN_ITS ---
Subjective: Patient did okay overnight. Patient has been oxygenating well and no significant ectopy has been reported on telemetry. No bleeding complications have been reported. When attempting a spontaneous breathing trial this morning, patient became agitated and had to be placed back on sedation. Respiratory did report anxiety, but also decreased tidal volumes. Nursing had reported increased rhonchi overnight. General: - - Intubated and sedated. RASS -2. HEENT: Atraumatic, PERRLA, EOMI, Normocephalic, - - No scleral icterus or injection noted Oral: Moist Mucosa, No Gingival or Mucosal Lesions/ Ulcerations Neck: Supple, No JVD, No Nodes, Trachea Midline Lungs: No wheeze, No rales, Diminished, Rales, - - Symmetric expansion. Cardiovascular: Normal S1, Normal S2, Irregular Rate, Murmur - Grade 2 out of 6 systolic ejection murmur at the right sternal border, No rub noted, No Gallop Abdomen: Bowel Sounds Present, Soft, Non Tender, Non-Distended, Obese Extremities: No clubbing, No cyanosis, Edema Skin: No rashes, No breakdown, - - Lower extremities wrapped with Patrick bandage Musculoskeletal: No Tenderness to Palpation of Joints or Extremities Lymphatic: No Cervical, Supraclavicular, or Inguinal Adenopathy Neurological: Cranial nerves II-XII grossly intact, Neuro grossly intact, Motor Exam 5/5 strength throughout Psych/Mental Status: Flat Affect, Impulsive Vital Signs Temp Pulse Resp BP Pulse Ox 36.6 C 96 12 105/53 L 98 06/17/19 07:00 06/17/19 07:00 06/17/19 07:00 06/17/19 07:00 06/17/19 07:00 Oxygen Flow Rate (L/min) 2 Oxygen Delivery Method Mechanical Ventilator Weight: 117 kg Body Mass Index (BMI) 40.6 Finger Stick Blood Glucose 211 Intake and Output for Last 24 Hours 06/15/19 06/16/19 06/17/19 23:59 23:59 23:59 Intake Total 718.61 / 738.01 1229.90 / 1229.90 Output Total 350 / 350 100 / 100 Balance 368.61 / 388.01 1129.90 / 1129.90 Labs (Last 48 Hours) 06/16/19 06/16/19 06/16/19 11:45 11:45 11:45 WBC 16.0 H RBC 2.79 L Hgb 8.9 L Hct 30.1 L MCV 107.9 H MCH 31.9 MCHC 29.6 L RDW Std Deviation 82.2 H RDW Coeff of Alicia 21.1 H Plt Count 449 MPV 10.2 Immature Gran % (Auto) 0.700 Neut % (Auto) 83.5 H Lymph % (Auto) 10.2 L Blaine % (Auto) 5.2 Eos % (Auto) 0.1 Baso % (Auto) 0.3 Absolute Neuts (auto) 13.4 H Absolute Lymphs (auto) 1.64 Nucleated RBC % 0.4 Differential Comment Hypochromasia Anisocytosis 1+ Macrocytosis Target Cells Acanthocytes (Spur) Schistocytes PT 36.2 H INR 3.6 H* APTT 46.3 H Specimen Type Sample Site pH Bicarbonate Actual POC Total CO2 Base Excess O2 Saturation O2 % ABG pCO2 ABG pO2 Todd Test Respiration Rate O2 Delivery Device Vent Mode Tidal Volume POC PEEP Blood Gas Notified Whom Blood Gas Notified Time Sodium 135 L Potassium 7.5 H* Chloride 102 Carbon Dioxide 28.0 Anion Gap 5 BUN 52 H Creatinine 2.43 H Estim Creat Clear Calc 17.57 Est GFR (MDRD) Af Amer 25 L Est GFR (MDRD) Non-Af 20 L BUN/Creatinine Ratio 21.4 H Glucose 223 H Lactic Acid Calcium 10.9 H Magnesium Total Bilirubin 1.40 H AST 119 H ALT 82 H Alkaline Phosphatase 165 H Troponin I 0.015 Total Protein 8.1 Albumin 1.8 L Globulin 6.3 H Albumin/Globulin Ratio 0.3 L POC Glucose 06/16/19 06/16/19 06/16/19 11:45 14:53 16:15 WBC RBC Hgb Hct MCV MCH MCHC RDW Std Deviation RDW Coeff of Alicia Plt Count MPV Immature Gran % (Auto) Neut % (Auto) Lymph % (Auto) Blaine % (Auto) Eos % (Auto) Baso % (Auto) Absolute Neuts (auto) Absolute Lymphs (auto) Nucleated RBC % Differential Comment Hypochromasia Anisocytosis Macrocytosis Target Cells Acanthocytes (Spur) Schistocytes PT INR APTT Specimen Type ART Sample Site R Radial pH 7.39 Bicarbonate Actual 26.8 H POC Total CO2 28 Base Excess 2 O2 Saturation 99 O2 % 30 ABG pCO2 44.1 ABG pO2 119 H Todd Test POS Respiration Rate 12 O2 Delivery Device Vent Vent Mode A-C Tidal Volume 450 POC PEEP 5 Blood Gas Notified Whom ICU MD Blood Gas Notified Time 1448 Sodium 136 Potassium 7.1 H* Chloride 104 Carbon Dioxide 30.0 Anion Gap 2 L BUN 54 H Creatinine 2.17 H Estim Creat Clear Calc 19.68 Est GFR (MDRD) Af Amer 28 L Est GFR (MDRD) Non-Af 23 L BUN/Creatinine Ratio 24.9 H Glucose 202 H Lactic Acid 4.5 H* Calcium 9.7 Magnesium 2.2 Total Bilirubin AST ALT Alkaline Phosphatase Troponin I Total Protein Albumin Globulin Albumin/Globulin Ratio POC Glucose 06/16/19 06/16/19 06/17/19 16:15 21:40 00:01 WBC RBC Hgb Hct MCV MCH MCHC RDW Std Deviation RDW Coeff of Alicia Plt Count MPV Immature Gran % (Auto) Neut % (Auto) Lymph % (Auto) Blaine % (Auto) Eos % (Auto) Baso % (Auto) Absolute Neuts (auto) Absolute Lymphs (auto) Nucleated RBC % Differential Comment Hypochromasia Anisocytosis Macrocytosis Target Cells Acanthocytes (Spur) Schistocytes PT INR APTT Specimen Type Sample Site pH Bicarbonate Actual POC Total CO2 Base Excess O2 Saturation O2 % ABG pCO2 ABG pO2 Todd Test Respiration Rate O2 Delivery Device Vent Mode Tidal Volume POC PEEP Blood Gas Notified Whom Blood Gas Notified Time Sodium 139 Potassium 6.9 H* Chloride 107 Carbon Dioxide 31.0 Anion Gap 1 L BUN 54 H Creatinine 2.13 H Estim Creat Clear Calc 20.05 Est GFR (MDRD) Af Amer 29 L Est GFR (MDRD) Non-Af 24 L BUN/Creatinine Ratio 25.4 H Glucose 194 H Lactic Acid 2.0 Calcium 9.6 Magnesium Total Bilirubin AST ALT Alkaline Phosphatase Troponin I Total Protein Albumin Globulin Albumin/Globulin Ratio POC Glucose 167 H 06/17/19 06/17/19 06/17/19 03:30 03:30 03:30 WBC 11.7 H RBC 2.52 L Hgb 8.0 L Hct 25.6 L MCV 101.6 H D MCH 31.7 MCHC 31.3 L RDW Std Deviation 72.7 H RDW Coeff of Alicia 21.0 H Plt Count 297 MPV 9.9 Immature Gran % (Auto) 0.700 Neut % (Auto) 84.9 H Lymph % (Auto) 8.5 L Blaine % (Auto) 5.7 Eos % (Auto) 0.0 Baso % (Auto) 0.2 Absolute Neuts (auto) 9.9 H Absolute Lymphs (auto) 0.99 Nucleated RBC % 0 Differential Comment SCANNED Hypochromasia 2+ Anisocytosis Macrocytosis 3+ Target Cells 1+ Acanthocytes (Spur) RARE Schistocytes RARE PT 25.1 H INR 2.3 APTT Specimen Type Sample Site pH Bicarbonate Actual POC Total CO2 Base Excess O2 Saturation O2 % ABG pCO2 ABG pO2 Todd Test Respiration Rate O2 Delivery Device Vent Mode Tidal Volume POC PEEP Blood Gas Notified Whom Blood Gas Notified Time Sodium 140 Potassium 6.3 H* Chloride 106 Carbon Dioxide 29.0 Anion Gap 5 BUN 48 H Creatinine 2.00 H Estim Creat Clear Calc 21.35 Est GFR (MDRD) Af Amer 31 L Est GFR (MDRD) Non-Af 26 L BUN/Creatinine Ratio 24.0 H Glucose 153 H Lactic Acid Calcium 8.9 Magnesium Total Bilirubin 1.40 H AST 79 H ALT 62 H Alkaline Phosphatase 134 H Troponin I Total Protein 6.2 L Albumin 1.4 L Globulin 4.8 H Albumin/Globulin Ratio 0.3 L POC Glucose 06/17/19 05:53 WBC RBC Hgb Hct MCV MCH MCHC RDW Std Deviation RDW Coeff of Alicia Plt Count MPV Immature Gran % (Auto) Neut % (Auto) Lymph % (Auto) Blaine % (Auto) Eos % (Auto) Baso % (Auto) Absolute Neuts (auto) Absolute Lymphs (auto) Nucleated RBC % Differential Comment Hypochromasia Anisocytosis Macrocytosis Target Cells Acanthocytes (Spur) Schistocytes PT INR APTT Specimen Type Sample Site pH Bicarbonate Actual POC Total CO2 Base Excess O2 Saturation O2 % ABG pCO2 ABG pO2 Todd Test Respiration Rate O2 Delivery Device Vent Mode Tidal Volume POC PEEP Blood Gas Notified Whom Blood Gas Notified Time Sodium Potassium Chloride Carbon Dioxide Anion Gap BUN Creatinine Estim Creat Clear Calc Est GFR (MDRD) Af Amer Est GFR (MDRD) Non-Af BUN/Creatinine Ratio Glucose Lactic Acid Calcium Magnesium Total Bilirubin AST ALT Alkaline Phosphatase Troponin I Total Protein Albumin Globulin Albumin/Globulin Ratio POC Glucose 135 H Clinical Impression(s) from Imaging Studies Chest X-Ray 06/16/19 11:44 IMPRESSION: The tip of the right central catheter is in the right atrium. The tip of the endotracheal tube is at the level of the lionel. It should be withdrawn approximately 3.5 cm. Small bilateral effusions with increased markings at the left lung base. Electronically Signed: Yonatan Carley, at 13:09 EST , Service support , Chest X-Ray 06/16/19 14:42 IMPRESSION: Stable x-ray examination of the chest. Tip of the endotracheal tube remains near the lionel, aimed at the right mainstem bronchus. Electronically Signed: Burt Lou MD at 16:54 EST , Service support , Medical Necessity - Tobacco Use Smoking Status: Former smoker Tobacco Use: Cigarettes Assessment/Plan All Active Problems (Last Updated 06/16/19 @ 15:29 by Andrews Martinez DO) History of respiratory failure with hypo (Acute) Acute kidney injury (Acute) Type 1 diabetes (Acute) Hyperlipidemia (Acute) Paroxysmal atrial fibrillation (Acute) Sick sinus syndrome (Acute) Anticoagulant long-term use (Acute) Anemia, unspecified (Acute) Acute hyperkalemia (Acute) Shock, cardiogenic (Acute) Hyperglycemia due to type 1 diabetes mellitus (Acute) Atrial fibrillation by electrocardiogram (Acute) RECOMMENDATIONS: 1. Possible transition to Precedex to facilitate spontaneous awakening trial 2. Spontaneous awakening and breathing trials per protocol 3. Conservative approach to hyperkalemia. Monitor with telemetry 4. Okay to continue with prednisone for now 5. Initiate one-time dose of Lasix therapy 6. Consider cardiology consult given A. fib with flecainide therapy 7. Continue to hold anticoagulation for now given possibility of procedures 8. Initiate tube feeds given low albumin, recurrent hospitalization IMPRESSIONS: 1. Acute hypoxic respiratory failure Unclear etiology at this time. Patient reportedly was saturating well on presentation, but then was described as mottled and emergently intubated. Unclear if patient had an arrhythmia versus possible sleep apnea. Family had reported that this is been going on for a couple of days. It does sound as though patient's Lasix has been held, so congestive heart failure would also be a consideration. Patient does appear to have renal dysfunction, but extent is not clear at this time. 2. Possible acute kidney injury/hyperkalemia Significant hyperkalemia on presentation. Unclear if this is related to a respiratory arrest with acidosis. Patient did not receive an ABG prior to intubation, but ABG following intubation shows adequate oxygenation and ventilation on minimal vent settings. Still waiting on documentation from the [facility] on medications that were administered. Patient reportedly was r eceiving p.o. potassium with spironolactone and family is reporting that Lasix was held. This could have resulted in the hyperkalemia. Patient was also on an PATRICK inhibitor. 3. Reported insulin-dependent diabetes mellitus Patient does not have an anion gap at this time, but glucose is somewhat elevated. Patient reportedly is on prednisone therapy at this time and this may account for current findings. Will treat with sliding scale insulin for now. Hold off on Lantus. Given patient's requirement of continued intubation, would initiate tube feeds today. 4. A. fib with bradycardia Baseline cardiac function is unclear at this time. Patient reportedly is on flecainide therapy. Patient remains in atrial fibrillation. Flecainide was held by hospitalist on presentation. Would consider cardiology consult given reported difficult to control atrial fibrillation in the past. 5. Possible GERD/anxiety/osteopenia/hypertension/hypercholesterolemia/morbid obesity/poor history Complicates care, management, recovery and prognosis. Baseline medications used to hypothesize some baseline medical conditions. Await for POA to arrive to provide more history. TIME: 34 minutes critical care time spent addressing patient's acute hypoxic respiratory failure, possible acute kidney injury, hyperkalemia, review of all data and collaboration with care team (6:15 AM to 7:15 AM) Code Visit 9xxxx: [id number] Critical care first hour
--- NOTE | 2019-06-17 08:16 | PN_ITS ---
Patient Problems: Active and Suspected Problems (Last Updated 06/16/19 @ 15:29 by Andrews Martinez DO) Anemia, unspecified (Acute) Acute hyperkalemia (Acute) Shock, cardiogenic (Acute) Hyperglycemia due to type 1 diabetes mellitus (Acute) Atrial fibrillation by electrocardiogram (Acute) Reason for Visit: hyperkalemia Subjective: Still on vent. Intermittently following commands. Vitals/I&O's: Vital Signs Temp Pulse Resp BP Pulse Ox 36.6 C 97 12 105/53 L 98 06/17/19 07:00 06/17/19 07:00 06/17/19 07:00 06/17/19 07:00 06/17/19 07:00 Oxygen Flow Rate (L/min) 2 Oxygen Delivery Method Mechanical Ventilator Weight: 117 kg Body Mass Index (BMI) 40.6 Finger Stick Blood Glucose 211 Intake and Output for Last 24 Hours 06/15/19 06/16/19 06/17/19 23:59 23:59 23:59 Intake Total 718.61 / 738.01 1229.90 / 1229.90 Output Total 350 / 350 100 / 100 Balance 368.61 / 388.01 1129.90 / 1129.90 General: Confused, - - afebrile. HEENT: Atraumatic, Normocephalic Oral: - - ETT and OG in place Lungs: Normal air movement, No rhonchi, No wheeze, - - coarse breath sounds bilaterally. Cardiovascular: Regular rate, Regular Rhythm, Normal S1, Normal S2 Abdomen: Bowel Sounds Present, Soft, Non Tender, Non-Distended, No Hepato- splenomegaly Extremities: No edema, No Calf Tenderness Neurological: - - no clonus. moves all extremities spontaneously. Laboratory Results 06/16/19 11:45: WBC 16.0 H, RBC 2.79 L, Hgb 8.9 L, Hct 30.1 L, MCV 107.9 H, MCH 31.9, MCHC 29.6 L, RDW Std Deviation 82.2 H, RDW Coeff of Alicia 21.1 H, Plt Count 449, MPV 10.2, Immature Gran % (Auto) 0.700, Neut % (Auto) 83.5 H, Lymph % (Auto) 10.2 L, [place] % (Auto) 5.2, Eos % (Auto) 0.1, Baso % (Auto) 0.3, Absolute Neuts (auto) 13.4 H, Absolute Lymphs (auto) 1.64, Nucleated RBC % 0.4, Anisocytosis 1+ 06/16/19 11:45: PT 36.2 H, INR 3.6 H*, APTT 46.3 H 06/16/19 11:45: Sodium 135 L, Potassium 7.5 H*, Chloride 102, Carbon Dioxide 28.0, Anion Gap 5, BUN 52 H, Creatinine 2.43 H, Estim Creat Clear Calc 17.57, Est GFR (MDRD) Af Amer 25 L, Est GFR (MDRD) Non-Af 20 L, BUN/Creatinine Ratio 21.4 H, Glucose 223 H, Calcium 10.9 H, Total Bilirubin 1.40 H, AST 119 H, ALT 82 H, Alkaline Phosphatase 165 H, Troponin I 0.015, Total Protein 8.1, Albumin 1.8 L, Globulin 6.3 H, Albumin/Globulin Ratio 0.3 L 06/16/19 11:45: Lactic Acid 4.5 H* 06/16/19 14:53: Specimen Type ART, Sample Site R Radial, pH 7.39, Bicarbonate Actual 26.8 H, POC Total CO2 28, Base Excess 2, O2 Saturation 99, O2 % 30, ABG pCO2 44.1, ABG pO2 119 H, Todd Test POS, Respiration Rate 12, O2 Delivery Device Vent, Vent Mode A-C, Tidal Volume 450, POC PEEP 5, Blood Gas Notified Whom ICU , Blood Gas Notified Time 1448 06/16/19 16:15: Sodium 136, Potassium 7.1 H*, Chloride 104, Carbon Dioxide 30.0, Anion Gap 2 L, BUN 54 H, Creatinine 2.17 H, Estim Creat Clear Calc 19.68, Est GFR (MDRD) Af Amer 28 L, Est GFR (MDRD) Non-Af 23 L, BUN/Creatinine Ratio 24.9 H , Glucose 202 H, Calcium 9.7, Magnesium 2.2 06/16/19 16:15: Lactic Acid 2.0 06/16/19 21:40: Sodium 139, Potassium 6.9 H*, Chloride 107, Carbon Dioxide 31.0, Anion Gap 1 L, BUN 54 H, Creatinine 2.13 H, Estim Creat Clear Calc 20.05, Est GFR (MDRD) Af Amer 29 L, Est GFR (MDRD) Non-Af 24 L, BUN/Creatinine Ratio 25.4 H , Glucose 194 H, Calcium 9.6 06/17/19 00:01: POC Glucose 167 H 06/17/19 03:30: WBC 11.7 H, RBC 2.52 L, Hgb 8.0 L, Hct 25.6 L, MCV 101.6 H D, MCH 31.7, MCHC 31.3 L, RDW Std Deviation 72.7 H, RDW Coeff of Alicia 21.0 H, Plt Count 297, MPV 9.9, Immature Gran % (Auto) 0.700, Neut % (Auto) 84.9 H, Lymph % (Auto) 8.5 L, [place] % (Auto) 5.7, Eos % (Auto) 0.0, Baso % (Auto) 0.2, Absolute Neuts (auto) 9.9 H, Absolute Lymphs (auto) 0.99, Nucleated RBC % 0, Differential Comment SCANNED, Hypochromasia 2+, Macrocytosis 3+, Target Cells 1+, Acanthocytes (Spur) RARE, Schistocytes RARE 06/17/19 03:30: PT 25.1 H, INR 2.3 06/17/19 03:30: Sodium 140, Potassium 6.3 H*, Chloride 106, Carbon Dioxide 29.0, Anion Gap 5, BUN 48 H, Creatinine 2.00 H, Estim Creat Clear Calc 21.35, Est GFR (MDRD) Af Amer 31 L, Est GFR (MDRD) Non-Af 26 L, BUN/Creatinine Ratio 24.0 H, Glucose 153 H, Calcium 8.9, Total Bilirubin 1.40 H, AST 79 H, ALT 62 H, Alkaline Phosphatase 134 H, Total Protein 6.2 L, Albumin 1.4 L, Globulin 4.8 H, Albumin/Globulin Ratio 0.3 L 06/17/19 05:53: POC Glucose 135 H Current Medications Chlorhexidine Gluconate () 15 ml PO BID [facility] Last Admin: 06/16/19 21:08 Dose: 15 ml Documented by: Doxycycline Monohydrate (Doxycycline) 100 mg GT BID NABIL Stop: 06/23/19 23:59 Last Admin: 06/16/19 21:21 Dose: 100 mg Documented by: Famotidine (Pepcid) 20 mg GT DAILY [facility] Glucagon () 1 mg IM .X1 PRN PRN Reason: Hypoglycemia Fentanyl () 100 mls @ 2.5 mls/hr IV UD NABIL; Protocol Last Titration: 06/17/19 07:00 Dose: 75 mcg/hr, 7.5 mls/hr Documented by: Sodium Chloride () 1,000 mls @ 150 mls/hr IV .[id number] NABIL Last Infusion: 06/17/19 05:59 Dose: 150 mls/hr Documented by: Dextrose (Dextrose 10%-Water) 250 mls @ 999 mls/hr IV .Q16M PRN; Protocol PRN Reason: HYPOGLYCEMIA Sodium Chloride () 250 mls @ 15 mls/hr IV .[id number] PRN PRN Reason: Saline Flush Sodium Chloride () 250 mls @ 15 mls/hr IV .[id number] PRN PRN Reason: Additional IVPB Infusion Propofol (Diprivan) 1,000 mg in 100 mls @ 6.87 mls/hr CONT INF .Q12H [facility]; Protocol Last Titration: 06/17/19 07:00 Dose: 5 mcg/kg/min, 3.4 mls/hr Documented by: Insulin Human Lispro (Humalog Kwikpen (Bkc)) 0 unit SC Q6 N[facility]; Protocol Last Admin: 06/17/19 05:57 Dose: Not Given Documented by: Metoprolol Tartrate (Lopressor (Beta Lucina)) 25 mg NG BID NAB[facility] Last Admin: 06/16/19 21:22 Dose: Not Given Documented by: Prednisone () 20 mg NG DAILYCM [facility] Sodium Chloride () 10 - 40 ml IV UD PRN PRN Reason: SALINE FLUSH Last Admin: 06/17/19 07:07 Dose: 10 ml Documented by: STROKE Vital Signs/Narrative: Vital Signs Temp Pulse Resp BP Pulse Ox 06/17/19 07:00 36.6 C 97 12 105/53 L 98 06/17/19 06:00 36.5 C L 98 12 108/63 98 06/17/19 05:00 36.5 C L 99 16 115/52 L 97 Medical Necessity - Tobacco Use Smoking Status: Former smoker Tobacco Use: Cigarettes Assessment/Plan All Active Problems (Last Updated 06/16/19 @ 15:29 by Andrews Martinez DO) History of respiratory failure with hypo (Acute) Acute kidney injury (Acute) Type 1 diabetes (Acute) Hyperlipidemia (Acute) Paroxysmal atrial fibrillation (Acute) Sick sinus syndrome (Acute) Anticoagulant long-term use (Acute) Anemia, unspecified (Acute) Acute hyperkalemia (Acute) Shock, cardiogenic (Acute) Hyperglycemia due to type 1 diabetes mellitus (Acute) Atrial fibrillation by electrocardiogram (Acute) 1. Hyperkalemia * ongoing, but improving * Likely iatrogenic from spironolactone as well as potassium that she was receiving. Daughter reports that the potassium had stopped being given at [facility] but was being given at the alf. Requesting records from [facility] has been placed and will see if the orders for discharge reflect what was being performed at [facility]. * Patient received calcium chloride x2, sodium bicarb x2, kayexalate x1 2. Acute respiratory failure * Not hypoxic nor hypercapnic but exacerbated due to somnolence and need for airway protection * On the ventilator and doing well at this time. * Critical care on consult for further management 3. Chronic kidney disease stage IV * No baseline labs to compare to at this time. Currently awaiting lab work from [facility] to compare to. * Hold diuretics at this time and administer IV fluids 4. Lactic acidosis * Clinically not in septic shock. * Monitor * Fluids 5. Paroxysmal atrial fibrillation * atrial fibrillation at this time * continue with flecainide as well as metoprolol * Eliquis currently on hold given the supratherapeutic INR and potential for procedures. Likely resume in the next 24 to 48 hours. 6. Recent bacteremia and cellulitis: Continue with the doxycycline as previously ordered through the . Patient had had right ankle cellulitis. Had a REYNALDO that showed no endocarditis. 7. VTE prophylaxis: Patient is already anticoagulated. Add enoxaparin when INR less than 2. 8. IV malposition: Not true malfunction but the right subclavian triple-lumen catheter was 20cm device clearly marked on the hub and likely clearly marked on the packaging. The triple-lumen catheter was advanced all the way to the hub. On the x-ray, I measured it and it measured approximately 82 mm within the atrium. The triple-lumen catheter was pulled back by me roughly 9 cm and follow-up x-ray reveals good placement at this time. Dr. Hill informed me he would check the placement of the devices with CXR before transfer up to the floor. His note states, Will obtain chest x-ray to confirm placement of endotracheal tube, OG and right subclavian triple-lumen line. Though does not specify proper placement. Patient tolerated pulling back on the IV well. The IV sutures were first cut and then new ones placed at the new location. Reviewed records from [facility], [place]. Code Visit Inpatient E&M: 41250 Subs Hosp L3
[2019-06-17] MEDS: predniSONE 20 MG Tablet NG (10:34)
[2019-06-17] MEDS: Doxycycline 100 MG CAPSULE GT ×2 (10:34→21:35)
[2019-06-17] MEDS: Chlorhexidine 15 ML PO ×2 (10:34→21:41)
[2019-06-17] MEDS: Famotidine 20 MG Tablet GT (10:36)
[2019-06-17] MEDS: Dexmedetomidine 1,000 mcg in 0.9% NS 240 mL 14.6 MCG CONT INF (11:00)
[2019-06-17 11:15] LABS: Bedside Glucose 109 mg/dL (70-110)
--- NOTE | 2019-06-17 15:33 | CASEMGMT ---
RN CARA Note: Daughter requested to speak with CM. Intro role of CM and spoke with daughter at length re: previous hospital admissions. Daughter voiced concern that pt had been ambulatory, driving self in March, and past few months has had significant health issues. Daughter would like to have pt evaluated for TCU on dc instead of returning to [facility]. RN CARA let daughter know referral could be made, and bed availability would need to be reviewed. Pt remains on ventilator today, dc date undetermined. Daughter is agreeable to have referral made to TCU. -Call to [facility] referral line. First bed availability would be on Sunday. Pt name to TCU list. -STEW He MGR updated on above. Gail SOMERSN RN ACM
[2019-06-17 16:42] LABS: Potassium 5.8 mmol/L (3.5-5.1)
--- NOTE | 2019-06-17 16:52 | CHAPLAIN ---
Type of Pastoral Visit ___ Initial Visit _x__ Follow-up Visit ___ On-call Visit ___ General Patient Visit ___ Spiritual Assessment ___ Family Conference ___ Bereavement ___ Rapid Response ___ Code Blue ___ Other (describe below) Pastoral Care Referral From ___ Patient _x__ Family ___ Nurse ___ Physician ___ Email Marketing Specialist ___ Embedded Developer ___ Other (describe below) Sacrament/Intervention _x__ Active listening ___ Anointing ___ Anabaptism ___ Bereavement ___ Communion ___ Audra exploration ___ ___ Life review ___ Prayer ___ Reconciliation ___ Sacrament of Sick _x__ Supportive presence ___ Wedding ___ Other (describe below) Pastoral Comments patient is intubated and not able to speak to this e commerce strategist; offered support to daughter who readily received presence and emotional support
[2019-06-17 19:16] LABS: Bedside Glucose 199 mg/dL (70-110)
[2019-06-17] MEDS: Menthol/Lanolin/Calamine/Znox 113 GM Tube 1 APPLIC TOPICAL (21:12)
[2019-06-17] MEDS: Metoprolol Tartrate 25 MG Tablet NG (21:35)
[2019-06-18] VITALS (37 sets, daily range): BP systolic 85–161; BP diastolic 21–73; PULSE 69–113; RESP 11–25; TEMP 36.3–37.2; O2SAT 93–100
[2019-06-18 00:25] LABS: Bedside Glucose 186 mg/dL (70-110)
[2019-06-18] MEDS: Dexmedetomidine 1,000 mcg in 0.9% NS 240 mL 14.6 MCG CONT INF (03:26)
[2019-06-18 04:32] LABS: Absolute Lymphocyte Count 1.03 X10^3/uL (0.83-4.51); Absolute Neutrophil Count 6.4 X10^3/uL (2.0-7.7); Basophil# 0.01 X10^3/uL; Basophil% 0.1 % (0-1); Eosinophil# 0.02 X10^3/uL; Eosinophils% 0.2 % (0-5); Hemoglobin 9.1 g/dL (12.0-15.0); Lymphocyte # 1.03 X10^3/ul (4.0); Lymphocyte % 12.8 % (19-41); Mean Corp Hgb Conc 31.4 g/dL (32-36); Mean Corpuscular Hgb 31.4 pg (27.0-32.0); Mean Platelet Vol. 9.8 fl (6.2-12.0); Monocyte# 0.53 X10^3/uL; Monocyte% 6.6 % (0-10); NRBC Flagged by Analyzer 0 % (0-5); Neutrophil # 6.41 X10^3/uL (2.7-7.7); Neutrophil % 80.1 % (47-70); POSITIVE MORPHOLOGY YES; Platelet Count 294 K/mm3 (150-450); RBC Distribution Width CV 21.2 % (11.6-14.6)
[2019-06-18 04:33] LABS: Differential Indicated SCAN CRITERIA MET
[2019-06-18 04:37] LABS: International Normalized Ratio 1.6
[2019-06-18 04:53] LABS: ALB/GLOB Ratio 0.3 RATIO (0.9-2.4); AST(SGOT) 38 U/L (15-37); Alanine Aminotransfer ALT/SGPT 46 U/L (13-56); Albumin, Serum 1.3 g/dL (3.2-5.0); Alkaline Phosphatase 126 U/L (45-117); Anion Gap 6 (5-15); BUN 48 mg/dL (7-18); BUN/Creat Ratio 27.1 RATIO (10-20); Calcium,Total 8.4 mg/dL (8.5-10.1); Chloride 107 mmol/L (98-107); Creatinine, Serum 1.77 mg/dL (0.55-1.02); EST Glomerular Filtration Rate 29 mL/min (>60); Est Glom Filt Rate - Afr Amer 36 mL/min (>60); Estimated Creatinine Clearance 24.13 ml/min; Globulin 4.7 g/dL (2.2-4.2); Glucose 182 mg/dL (74-106); Potassium 5.2 mmol/L (3.5-5.1); Sodium Level 140 mmol/L (136-145)
[2019-06-18 05:06] LABS: Differential Comment SCANNED; Macrocytosis 3+
[2019-06-18 05:07] LABS: Acanthocytes 1+
[2019-06-18 05:26] LABS: Bedside Glucose 169 mg/dL (70-110)
[2019-06-18] MEDS: Insulin Lispro 100 UNIT/ML INSULN.PEN SC ×4 (05:36→23:43)
--- NOTE | 2019-06-18 06:08 | RAD_ITS ---
STUDY: X-RAY CHEST REASON FOR EXAM: Female, 78 years old. SOB -- INTUBATED TECHNIQUE: Single AP portable view of the chest. COMPARISON: Comparison is made with prior examination dated June 16, 2019. FINDINGS: The tip of the endotracheal tube is at the level of the lionel. It should be pulled back approximately 2 cm. An orogastric tube is seen with the tip in the body of the stomach. A right-sided central catheter is seen with the tip in the midportion of the superior vena cava. Stable increased markings at the lung bases worse on the left side. Since prior study, there has been improvement in the left pleural effusion. Stable blunting of the right cause phrenic angle. There is borderline cardiomegaly. Normal mediastinum and analisa. Normal visualized pulmonary arteries. There is atherosclerotic calcification of the aortic arch with tortuosity. There are diffuse degenerative changes of the visualized thoracic spine. Normal visualized ribs, clavicles, and shoulders. There is no demonstrated abnormality of the visualized soft tissue structures of the upper abdomen. RAD/Chest 1 View (Portable) IMPRESSION: Interval improvement in the left pleural effusion with stable bibasilar atelectasis and/or infiltrates. The tip of the endotracheal tube is at the level of the lionel. Electronically Signed: Yonatan Howe, at 10:40 EST , Service support ,
--- NOTE | 2019-06-18 06:51 | CPS ---
results read back to Dr. Cruz
[2019-06-18 07:11] LABS: Base Excess 2 mmol/L (-2 to +2); Bicarbonate 24.6 mmol/L (22-26); Blood Gas Specimen Type ART; FI02 25; Mode A-C; O2 Delivery Device Vent; PEEP 5; PO2 113 mmHG (75-100); RR 12; SITE R Radial; SO2 99 % (95-99); Time Given 704; Total Carbon Dioxide 26 mmol/L; Vt 450; pCO2 31.3 mmHg (35-45)
--- NOTE | 2019-06-18 09:34 | PCM.PN.INT ---
Subjective: Patient did okay overnight. No acute issues were reported. Patient has not had any bleeding complications. Patient did have a spontaneous awakening trial this morning and did well, but was apneic during the spontaneous breathing trial. Patient had a chest x-ray that did not show any significant changes and an ABG showing respiratory alkalosis. Patient's vent was changed and she appears to be more awake at this time. General: - - RASS 0 to -1. Morbidly obese. Good vent synchrony. HEENT: Atraumatic, PERRLA, EOMI, Normocephalic, - - No scleral icterus or injection noted Oral: Moist Mucosa, No Gingival or Mucosal Lesions/ Ulcerations Neck: Supple, No JVD, No Nodes, Trachea Midline Lungs: Clear to auscultation, Normal air movement, No rhonchi, No wheeze, No rales, - - Symmetric expansion. No dullness to percussion. Cardiovascular: Normal S1, Normal S2, No murmurs, Irregular Rate, No rub noted, No Gallop Abdomen: Bowel Sounds Present, Soft, Non Tender, Non-Distended, Obese Extremities: No clubbing, No cyanosis, Edema Skin: - - No change from previous. Some weeping from the arm. Musculoskeletal: No Tenderness to Palpation of Joints or Extremities Lymphatic: No Cervical, Supraclavicular, or Inguinal Adenopathy Neurological: Cranial nerves II-XII grossly intact, Neuro grossly intact, Motor Exam 5/5 strength throughout Psych/Mental Status: Flat Affect Vital Signs Temp Pulse Resp BP Pulse Ox 36.7 C 83 16 134/33 H 100 06/18/19 06:00 06/18/19 06:43 06/18/19 06:43 06/18/19 06:00 06/18/19 06:43 Oxygen Flow Rate (L/min) 2 Oxygen Delivery Method Mechanical Ventilator Weight: 117.1 kg Body Mass Index (BMI) 40.6 Finger Stick Blood Glucose 211 Intake and Output for Last 24 Hours 06/16/19 06/17/19 06/18/19 23:59 23:59 23:59 Intake Total 718.61 / 738.01 4257.85 / 4279.95 1087.88 / 1087.88 Output Total 350 / 350 2725 / 2725 350 / 350 Balance 368.61 / 388.01 1532.85 / 1554.95 737.88 / 737.88 Labs (Last 48 Hours) 06/16/19 06/16/19 06/16/19 11:45 11:45 11:45 WBC 16.0 H RBC 2.79 L Hgb 8.9 L Hct 30.1 L MCV 107.9 H MCH 31.9 MCHC 29.6 L RDW Std Deviation 82.2 H RDW Coeff of Alicia 21.1 H Plt Count 449 MPV 10.2 Immature Gran % (Auto) 0.700 Neut % (Auto) 83.5 H Lymph % (Auto) 10.2 L [place] % (Auto) 5.2 Eos % (Auto) 0.1 Baso % (Auto) 0.3 Absolute Neuts (auto) 13.4 H Absolute Lymphs (auto) 1.64 Nucleated RBC % 0.4 Differential Comment Hypochromasia Anisocytosis 1+ Macrocytosis Target Cells Acanthocytes (Spur) Schistocytes PT 36.2 H INR 3.6 H* APTT 46.3 H Specimen Type Sample Site pH Bicarbonate Actual POC Total CO2 Base Excess O2 Saturation O2 % ABG pCO2 ABG pO2 Todd Test Respiration Rate O2 Delivery Device Vent Mode Tidal Volume POC PEEP Blood Gas Notified Whom Blood Gas Notified Time Sodium 135 L Potassium 7.5 H* Chloride 102 Carbon Dioxide 28.0 Anion Gap 5 BUN 52 H Creatinine 2.43 H Estim Creat Clear Calc 17.57 Est GFR (MDRD) Af Amer 25 L Est GFR (MDRD) Non-Af 20 L BUN/Creatinine Ratio 21.4 H Glucose 223 H Lactic Acid Calcium 10.9 H Magnesium Total Bilirubin 1.40 H AST 119 H ALT 82 H Alkaline Phosphatase 165 H Troponin I 0.015 Total Protein 8.1 Albumin 1.8 L Globulin 6.3 H Albumin/Globulin Ratio 0.3 L POC Glucose 06/16/19 06/16/19 06/16/19 11:45 14:53 16:15 WBC RBC Hgb Hct MCV MCH MCHC RDW Std Deviation RDW Coeff of Alicia Plt Count MPV Immature Gran % (Auto) Neut % (Auto) Lymph % (Auto) [place] % (Auto) Eos % (Auto) Baso % (Auto) Absolute Neuts (auto) Absolute Lymphs (auto) Nucleated RBC % Differential Comment Hypochromasia Anisocytosis Macrocytosis Target Cells Acanthocytes (Spur) Schistocytes PT INR APTT Specimen Type ART Sample Site R Radial pH 7.39 Bicarbonate Actual 26.8 H POC Total CO2 28 Base Excess 2 O2 Saturation 99 O2 % 30 ABG pCO2 44.1 ABG pO2 119 H Todd Test POS Respiration Rate 12 O2 Delivery Device Vent Vent Mode A-C Tidal Volume 450 POC PEEP 5 Blood Gas Notified Whom ICU MD Blood Gas Notified Time 1448 Sodium 136 Potassium 7.1 H* Chloride 104 Carbon Dioxide 30.0 Anion Gap 2 L BUN 54 H Creatinine 2.17 H Estim Creat Clear Calc 19.68 Est GFR (MDRD) Af Amer 28 L Est GFR (MDRD) Non-Af 23 L BUN/Creatinine Ratio 24.9 H Glucose 202 H Lactic Acid 4.5 H* Calcium 9.7 Magnesium 2.2 Total Bilirubin AST ALT Alkaline Phosphatase Troponin I Total Protein Albumin Globulin Albumin/Globulin Ratio POC Glucose 06/16/19 06/16/19 06/17/19 16:15 21:40 00:01 WBC RBC Hgb Hct MCV MCH MCHC RDW Std Deviation RDW Coeff of Alicai Plt Count MPV Immature Gran % (Auto) Neut % (Auto) Lymph % (Auto) [place] % (Auto) Eos % (Auto) Baso % (Auto) Absolute Neuts (auto) Absolute Lymphs (auto) Nucleated RBC % Differential Comment Hypochromasia Anisocytosis Macrocytosis Target Cells Acanthocytes (Spur) Schistocytes PT INR APTT Specimen Type Sample Site pH Bicarbonate Actual POC Total CO2 Base Excess O2 Saturation O2 % ABG pCO2 ABG pO2 Todd Test Respiration Rate O2 Delivery Device Vent Mode Tidal Volume POC PEEP Blood Gas Notified Whom Blood Gas Notified Time Sodium 139 Potassium 6.9 H* Chloride 107 Carbon Dioxide 31.0 Anion Gap 1 L BUN 54 H Creatinine 2.13 H Estim Creat Clear Calc 20.05 Est GFR (MDRD) Af Amer 29 L Est GFR (MDRD) Non-Af 24 L BUN/Creatinine Ratio 25.4 H Glucose 194 H Lactic Acid 2.0 Calcium 9.6 Magnesium Total Bilirubin AST ALT Alkaline Phosphatase Troponin I Total Protein Albumin Globulin Albumin/Globulin Ratio POC Glucose 167 H 06/17/19 06/17/19 06/17/19 03:30 03:30 03:30 WBC 11.7 H RBC 2.52 L Hgb 8.0 L Hct 25.6 L MCV 101.6 H D MCH 31.7 MCHC 31.3 L RDW Std Deviation 72.7 H RDW Coeff of Alicia 21.0 H Plt Count 297 MPV 9.9 Immature Gran % (Auto) 0.700 Neut % (Auto) 84.9 H Lymph % (Auto) 8.5 L [place] % (Auto) 5.7 Eos % (Auto) 0.0 Baso % (Auto) 0.2 Absolute Neuts (auto) 9.9 H Absolute Lymphs (auto) 0.99 Nucleated RBC % 0 Differential Comment SCANNED Hypochromasia 2+ Anisocytosis Macrocytosis 3+ Target Cells 1+ Acanthocytes (Spur) RARE Schistocytes RARE PT 25.1 H INR 2.3 APTT Specimen Type Sample Site pH Bicarbonate Actual POC Total CO2 Base Excess O2 Saturation O2 % ABG pCO2 ABG pO2 Todd Test Respiration Rate O2 Delivery Device Vent Mode Tidal Volume POC PEEP Blood Gas Notified Whom Blood Gas Notified Time Sodium 140 Potassium 6.3 H* Chloride 106 Carbon Dioxide 29.0 Anion Gap 5 BUN 48 H Creatinine 2.00 H Estim Creat Clear Calc 21.35 Est GFR (MDRD) Af Amer 31 L Est GFR (MDRD) Non-Af 26 L BUN/Creatinine Ratio 24.0 H Glucose 153 H Lactic Acid Calcium 8.9 Magnesium Total Bilirubin 1.40 H AST 79 H ALT 62 H Alkaline Phosphatase 134 H Troponin I Total Protein 6.2 L Albumin 1.4 L Globulin 4.8 H Albumin/Globulin Ratio 0.3 L POC Glucose 06/17/19 06/17/19 06/17/19 05:53 11:08 16:00 WBC RBC Hgb Hct MCV MCH MCHC RDW Std Deviation RDW Coeff of Alicia Plt Count MPV Immature Gran % (Auto) Neut % (Auto) Lymph % (Auto) [place] % (Auto) Eos % (Auto) Baso % (Auto) Absolute Neuts (auto) Absolute Lymphs (auto) Nucleated RBC % Differential Comment Hypochromasia Anisocytosis Macrocytosis Target Cells Acanthocytes (Spur) Schistocytes PT INR APTT Specimen Type Sample Site pH Bicarbonate Actual POC Total CO2 Base Excess O2 Saturation O2 % ABG pCO2 ABG pO2 Todd Test Respiration Rate O2 Delivery Device Vent Mode Tidal Volume POC PEEP Blood Gas Notified Whom Blood Gas Notified Time Sodium Potassium 5.8 H Chloride Carbon Dioxide Anion Gap BUN Creatinine Estim Creat Clear Calc Est GFR (MDRD) Af Amer Est GFR (MDRD) Non-Af BUN/Creatinine Ratio Glucose Lactic Acid Calcium Magnesium Total Bilirubin AST ALT Alkaline Phosphatase Troponin I Total Protein Albumin Globulin Albumin/Globulin Ratio POC Glucose 135 H 109 06/17/19 06/17/19 06/18/19 19:08 23:46 04:20 WBC 8.0 RBC 2.90 L Hgb 9.1 L Hct 29.0 L MCV 100.0 H MCH 31.4 MCHC 31.4 L RDW Std Deviation 75.0 H RDW Coeff of Alicia 21.2 H Plt Count 294 MPV 9.8 Immature Gran % (Auto) 0.200 Neut % (Auto) 80.1 H Lymph % (Auto) 12.8 L [place] % (Auto) 6.6 Eos % (Auto) 0.2 Baso % (Auto) 0.1 Absolute Neuts (auto) 6.4 Absolute Lymphs (auto) 1.03 Nucleated RBC % 0 Differential Comment SCANNED Hypochromasia Anisocytosis Macrocytosis 3+ Target Cells Acanthocytes (Spur) 1+ Schistocytes PT INR APTT Specimen Type Sample Site pH Bicarbonate Actual POC Total CO2 Base Excess O2 Saturation O2 % ABG pCO2 ABG pO2 Todd Test Respiration Rate O2 Delivery Device Vent Mode Tidal Volume POC PEEP Blood Gas Notified Whom Blood Gas Notified Time Sodium Potassium Chloride Carbon Dioxide Anion Gap BUN Creatinine Estim Creat Clear Calc Est GFR (MDRD) Af Amer Est GFR (MDRD) Non-Af BUN/Creatinine Ratio Glucose Lactic Acid Calcium Magnesium Total Bilirubin AST ALT Alkaline Phosphatase Troponin I Total Protein Albumin Globulin Albumin/Globulin Ratio POC Glucose 199 H 186 H 06/18/19 06/18/19 06/18/19 04:20 04:20 05:20 WBC RBC Hgb Hct MCV MCH MCHC RDW Std Deviation RDW Coeff of Alicia Plt Count MPV Immature Gran % (Auto) Neut % (Auto) Lymph % (Auto) [place] % (Auto) Eos % (Auto) Baso % (Auto) Absolute Neuts (auto) Absolute Lymphs (auto) Nucleated RBC % Differential Comment Hypochromasia Anisocytosis Macrocytosis Target Cells Acanthocytes (Spur) Schistocytes PT 19.0 H INR 1.6 APTT Specimen Type Sample Site pH Bicarbonate Actual POC Total CO2 Base Excess O2 Saturation O2 % ABG pCO2 ABG pO2 Todd Test Respiration Rate O2 Delivery Device Vent Mode Tidal Volume POC PEEP Blood Gas Notified Whom Blood Gas Notified Time Sodium 140 Potassium 5.2 H Chloride 107 Carbon Dioxide 27.0 Anion Gap 6 BUN 48 H Creatinine 1.77 H Estim Creat Clear Calc 24.13 Est GFR (MDRD) Af Amer 36 L Est GFR (MDRD) Non-Af 29 L BUN/Creatinine Ratio 27.1 H Glucose 182 H Lactic Acid Calcium 8.4 L Magnesium Total Bilirubin 1.40 H AST 38 H ALT 46 Alkaline Phosphatase 126 H Troponin I Total Protein 6.0 L Albumin 1.3 L Globulin 4.7 H Albumin/Globulin Ratio 0.3 L POC Glucose 169 H 06/18/19 07:05 WBC RBC Hgb Hct MCV MCH MCHC RDW Std Deviation RDW Coeff of Alicia Plt Count MPV Immature Gran % (Auto) Neut % (Auto) Lymph % (Auto) [place] % (Auto) Eos % (Auto) Baso % (Auto) Absolute Neuts (auto) Absolute Lymphs (auto) Nucleated RBC % Differential Comment Hypochromasia Anisocytosis Macrocytosis Target Cells Acanthocytes (Spur) Schistocytes PT INR APTT Specimen Type ART Sample Site R Radial pH 7.50 H Bicarbonate Actual 24.6 POC Total CO2 26 Base Excess 2 O2 Saturation 99 O2 % 25 ABG pCO2 31.3 L ABG pO2 113 H Todd Test NA Respiration Rate 12 O2 Delivery Device Vent Vent Mode A-C Tidal Volume 450 POC PEEP 5 Blood Gas Notified Whom ICU Blood Gas Notified Time 704 Sodium Potassium Chloride Carbon Dioxide Anion Gap BUN Creatinine Estim Creat Clear Calc Est GFR (MDRD) Af Amer Est GFR (MDRD) Non-Af BUN/Creatinine Ratio Glucose Lactic Acid Calcium Magnesium Total Bilirubin AST ALT Alkaline Phosphatase Troponin I Total Protein Albumin Globulin Albumin/Globulin Ratio POC Glucose Microbiology 06/17/19 01:10 Sputum, Induced/Lukens Gram Stain - Final Medical Necessity - Tobacco Use Smoking Status: Former smoker Tobacco Use: Cigarettes Assessment/Plan All Active Problems (Last Updated 06/16/19 @ 15:29 by Andrews Martinez DO) History of respiratory failure with hypo (Acute) Acute kidney injury (Acute) Type 1 diabetes (Acute) Hyperlipidemia (Acute) Paroxysmal atrial fibrillation (Acute) Sick sinus syndrome (Acute) Anticoagulant long-term use (Acute) Anemia, unspecified (Acute) Acute hyperkalemia (Acute) Shock, cardiogenic (Acute) Hyperglycemia due to type 1 diabetes mellitus (Acute) Atrial fibrillation by electrocardiogram (Acute) RECOMMENDATIONS: 1. Attempt spontaneous breathing trial this afternoon 2. Spontaneous awakening and breathing trials per protocol 3. Conservative approach to hyperkalemia. Monitor with telemetry 4. Wean prednisone to 10 mg tomorrow 5. Reorder one-time dose of Lasix therapy 6. Consider cardiology consult given A. fib with flecainide therapy 7. Okay to reinitiate Eliquis from my perspective IMPRESSIONS: 1. Acute hypoxic respiratory failure Unclear etiology at this time. Patient reportedly was saturating well on presentation, but then was described as mottled and emergently intubated. Unclear if patient had an arrhythmia versus possible sleep apnea. Patient will receive diuretic therapy, but oxygenation has not been an issue. Clinical suspicion for apnea secondary to respiratory alkalosis. Minute ventilation has been decreased. We will continue to attempt spontaneous breathing trials during the day. Hopeful the patient will be able to be extubated sometime today. 2. Possible acute kidney injury/hyperkalemia Significant hyperkalemia on presentation. Unclear if this is related to a respiratory arrest with acidosis. Patient did not receive an ABG prior to intubation, but ABG following intubation shows adequate oxygenation and ventilation on minimal vent settings. Patient will be given Lasix today given significant subcutaneous edema. Oxygenation appears to be doing well. 3. Reported insulin-dependent diabetes mellitus Patient does not have an anion gap at this time, but glucose is somewhat elevated. Patient reportedly is on prednisone therapy at this time and this may account for current findings. Will treat with sliding scale insulin for now. Hold off on Lantus. 4. A. fib with bradycardia Baseline cardiac function is unclear at this time. Patient reportedly is on flecainide therapy. Patient remains in atrial fibrillation. Flecainide was held by hospitalist on presentation. Would consider cardiology consult given reported difficult to control atrial fibrillation in the past. 5. Possible GERD/anxiety/osteopenia/hypertension/hypercholesterolemia/morbid obesity/poor history Complicates care, management, recovery and prognosis. Baseline medications used to hypothesize some baseline medical conditions. Await for POA to arrive to provide more history. TIME: 45 minutes critical care time spent addressing patient's acute hypoxic respiratory failure, possible acute kidney injury, hyperkalemia, review of all data and collaboration with care team (6 AM to 8 AM) Code Visit 9xxxx: [id number] Critical care first hour
--- NOTE | 2019-06-18 10:05 | CASEMGMT ---
SW participated in ICU rounds, daughter Iman and granddaughter Umm present. SW spoke w/them after rounds in regard to discharge plan. Iman confirmed again that she would like pt to go to TCU from here. SW inquired about POA, initially Iman stated she is medical POA. Upon further discussion, SW learned Iman is not medical POA, but POA for everything else. Pt up until now has been her own decision maker and has been able to sign all of her own papers. SW asked about other family, pt just has one other child, Maxine, who lives in [place]. Iman states that they do not always agree. She states she does think she will be okay with switching pt from [facility] to TCU however. Maxine is actually coming into town later today this evening. SW explained to Iman that once pt is able, SW can speak w/her about completing medical POA papers, but not today, even if pt is extubated. Daughter then asked if SW would be able to do the papers today once the pt is off the vent. Pt's granddaughter told daughter no, as pt was positive for delirium today. SW further explained to daughter that pt needs to be fully alert and oriented to complete the papers. Daughter states understanding. We then discussed all that pt has been through over the last few months. Family explained to SW that pt went in for a 6 month checkup and was in Afib RVR, so admitted to [facility]. It's unclear to this SW if pt went home and returned to the hospital, or just was in the hospital without a break to home, and then pt contracted cellulitis. Pt needed IV antibiotics so went to [facility] for 6 weeks. From there pt was discharged to [facility] just a few days ago. Now she is here, and family would prefer she go to TCU. If pt were to need more time after TCU they may want pt to return to [facility]. STEW explained the Medicare billing for snf, explained the 100 day limit and that pt needs to be progressing and participating for the snf to continue to bill Medicare. SW explained that after the 100 days if snf level of care is still needed family can pay privately or look into Medicaid. Daughter Iman states she had already spoken to Lashell at [facility] about this and had some understanding of it. The family's goal is to get pt home, as she was fully independent and living by herself before all of this happened. Granddaughter did inquire about options after TCU. SW explained that the SW in TCU will work w/pt and family for what would be the most appropriate plan, SNF, [place], or home. Family states understanding. SW called TCU, spoke w/[facility]. They will have a bed for pt by Sunday. SW let daughter Imna and granddaughter Umm know. SW will continue to follow. ERIC Elkins
--- NOTE | 2019-06-18 10:07 | PCM.PN.HOSP ---
Patient Problems: Active and Suspected Problems (Last Updated 06/16/19 @ 15:29 by Andrews Martinez DO) Acute hyperkalemia (Acute) Reason for Visit: hyperkalemia Subjective: Apneic with SBT. No new events otherwise. Vitals/I&O's: Vital Signs Temp Pulse Resp BP Pulse Ox 36.7 C 83 16 134/33 H 100 06/18/19 06:00 06/18/19 06:43 06/18/19 06:43 06/18/19 06:00 06/18/19 06:43 Oxygen Flow Rate (L/min) 2 Oxygen Delivery Method Mechanical Ventilator Weight: 117.1 kg Body Mass Index (BMI) 40.6 Finger Stick Blood Glucose 211 Intake and Output for Last 24 Hours 06/16/19 06/17/19 06/18/19 23:59 23:59 23:59 Intake Total 718.61 / 738.01 4257.85 / 4279.95 1087.88 / 1087.88 Output Total 350 / 350 2725 / 2725 350 / 350 Balance 368.61 / 388.01 1532.85 / 1554.95 737.88 / 737.88 General: No apparent distress HEENT: Atraumatic, Normocephalic Oral: Moist Mucosa, No Gingival or Mucosal Lesions/ Ulcerations, - - ETT and OG Neck: No Nodes, Trachea Midline Lungs: Clear to auscultation, Normal air movement, No rhonchi, No wheeze, No rales Cardiovascular: Regular rate, Regular Rhythm, Normal S1, Normal S2 Abdomen: Bowel Sounds Present, Soft, Non Tender, Non-Distended Extremities: No edema, No Calf Tenderness Skin: No rashes, No breakdown Musculoskeletal: No Tenderness to Palpation of Joints or Extremities, No Muscle Wasting Neurological: - - no clonus Microbiology Past 72 Hours 06/17/19 01:10 Sputum, Induced/Lukens Gram Stain - Final Laboratory Results 06/17/19 11:08: POC Glucose 109 06/17/19 16:00: Potassium 5.8 H 06/17/19 19:08: POC Glucose 199 H 06/17/19 23:46: POC Glucose 186 H 06/18/19 04:20: WBC 8.0, RBC 2.90 L, Hgb 9.1 L, Hct 29.0 L, MCV 100.0 H, MCH 31.4, MCHC 31.4 L, RDW Std Deviation 75.0 H, RDW Coeff of Alicia 21.2 H, Plt Count 294, MPV 9.8, Immature Gran % (Auto) 0.200, Neut % (Auto) 80.1 H, Lymph % (Auto) 12.8 L, [place] % (Auto) 6.6, Eos % (Auto) 0.2, Baso % (Auto) 0.1, Absolute Neuts (auto) 6.4, Absolute Lymphs (auto) 1.03, Nucleated RBC % 0, Differential Comment SCANNED, Macrocytosis 3+, Acanthocytes (Spur) 1+ 06/18/19 04:20: PT 19.0 H, INR 1.6 06/18/19 04:20: Sodium 140, Potassium 5.2 H, Chloride 107, Carbon Dioxide 27.0, Anion Gap 6, BUN 48 H, Creatinine 1.77 H, Estim Creat Clear Calc 24.13, Est GFR (MDRD) Af Amer 36 L, Est GFR (MDRD) Non-Af 29 L, BUN/Creatinine Ratio 27.1 H, Glucose 182 H, Calcium 8.4 L, Total Bilirubin 1.40 H, AST 38 H, ALT 46, Alkaline Phosphatase 126 H, Total Protein 6.0 L, Albumin 1.3 L, Globulin 4.7 H, Albumin/Globulin Ratio 0.3 L 06/18/19 05:20: POC Glucose 169 H 06/18/19 07:05: Specimen Type ART, Sample Site R Radial, pH 7.50 H, Bicarbonate Actual 24.6, POC Total CO2 26, Base Excess 2, O2 Saturation 99, O2 % 25, ABG pCO2 31.3 L, ABG pO2 113 H, Todd Test NA, Respiration Rate 12, O2 Delivery Device Vent, Vent Mode A-C, Tidal Volume 450, POC PEEP 5, Blood Gas Notified Whom ICU MD, Blood Gas Notified Time 704 Current Medications Calamine/Phenol (Calmoseptine Ointment) 1 applic TOPICAL BID [facility]; Protocol Last Admin: 06/17/19 21:12 Dose: 1 applicatio Documented by: Chlorhexidine Gluconate () 15 ml PO BID NABIL Last Admin: 06/17/19 21:41 Dose: 15 ml Documented by: Doxycycline Monohydrate (Doxycycline) 100 mg GT BID [facility] Stop: 06/23/19 23:59 Last Admin: 06/17/19 21:35 Dose: 100 mg Documented by: Famotidine (Pepcid) 20 mg GT DAILY [facility] Last Admin: 06/17/19 10:36 Dose: 20 mg Documented by: Glucagon () 1 mg IM .X1 PRN PRN Reason: Hypoglycemia Fentanyl () 100 mls @ 2.5 mls/hr IV UD [facility]; Protocol Last Titration: 06/18/19 06:54 Dose: 0 mcg/hr, 0 mls/hr Documented by: Dextrose (Dextrose 10%-Water) 250 mls @ 999 mls/hr IV .Q16M PRN; Protocol PRN Reason: HYPOGLYCEMIA Sodium Chloride () 250 mls @ 15 mls/hr IV .[id number] PRN PRN Reason: Saline Flush Sodium Chloride () 250 mls @ 15 mls/hr IV .[id number] PRN PRN Reason: Additional IVPB Infusion Dexmedetomidine HCl 1,000 mcg/ (Sodium Chloride) 250 mls @ 14.625 mls/hr CONT INF .Q17H6M [facility]; Protocol Last Titration: 06/18/19 06:55 Dose: 0.4 mcg/kg/hr, 11.7 mls/hr Documented by: Insulin Human Lispro (Humalog Kwikpen (Bkc)) 0 unit SC Q6 [facility]; Protocol Last Admin: 06/18/19 05:36 Dose: 3 u Documented by: Metoprolol Tartrate (Lopressor (Beta Lucina)) 25 mg NG BID [facility] Last Admin: 06/17/19 21:35 Dose: 25 mg Documented by: [facility] () [facility] Last Admin: 06/17/19 10:34 Dose: 20 mg Documented by: Sodium Chloride () 10 - 40 ml IV UD PRN PRN Reason: SALINE FLUSH Last Admin: 06/17/19 21:10 Dose: 20 ml Documented by: STROKE Vital Signs/Narrative: Vital Signs Pulse Resp Pulse Ox 06/18/19 06:43 83 16 100 Medical Necessity - Tobacco Use Smoking Status: Former smoker Tobacco Use: Cigarettes Assessment/Plan All Active Problems (Last Updated 06/16/19 @ 15:29 by Andrews Martinez DO) History of respiratory failure with hypo (Acute) Acute kidney injury (Acute) Hyperlipidemia (Acute) Acute hyperkalemia (Acute) 1. Hyperkalemia ongoing, but improving now down to 5.2 Likely iatrogenic from spironolactone as well as potassium that she was receiving. Daughter reports that the potassium had stopped being given at [facility] but was being given at the long term. Requesting records from [facility] has been placed and will see if the orders for discharge reflect what was being performed at [facility]. Patient received calcium chloride x2, sodium bicarb x2, kayexalate x1 2. Acute respiratory failure Not hypoxic nor hypercapnic but exacerbated due to somnolence and need for airway protection On the ventilator and doing well at this time. Critical care on consult for further management Failed SBT today with apnea 3. CARLENE On CKD 4 No baseline labs to compare to at this time. Currently awaiting lab work from [facility] to compare to. 4. Lactic acidosis Clinically not in septic shock. Monitor Fluids 5. Paroxysmal atrial fibrillation atrial fibrillation at this time continue with flecainide as well as metoprolol Eliquis currently on hold given the supratherapeutic INR and potential for procedures. Likely resume in the next 24 to 48 hours. 6. Recent bacteremia and cellulitis: Continue with the doxycycline as previously ordered through the . Patient had had right ankle cellulitis. Had a REYNALDO that showed no endocarditis. 7. VTE prophylaxis: Patient is already anticoagulated. Add enoxaparin when INR less than 2. 8. IV malposition: Not true malfunction but the right subclavian triple-lumen catheter was 20cm device clearly marked on the hub and likely clearly marked on the packaging. The triple-lumen catheter was advanced all the way to the hub. On the x-ray, I measured it and it measured approximately 82 mm within the atrium. The triple-lumen catheter was pulled back by me roughly 9 cm and follow-up x-ray reveals good placement at this time. Dr. Hill informed me he would check the placement of the devices with CXR before transfer up to the floor. His note states, Will obtain chest x-ray to confirm placement of endotracheal tube, OG and right subclavian triple-lumen line. Though does not specify proper placement. Patient tolerated pulling back on the IV well. The IV sutures were first cut and then new ones placed at the new location. Code Visit Inpatient E&M: 17530 [facility] L3
[2019-06-18] MEDS: Metoprolol Tartrate 25 MG Tablet NG (10:33)
[2019-06-18] MEDS: Famotidine 20 MG Tablet GT (10:33)
[2019-06-18] MEDS: Doxycycline 100 MG CAPSULE GT (10:33)
[2019-06-18] MEDS: 0.9% Saline Lock 10 ML Syringe IV (10:33)
[2019-06-18] MEDS: Furosemide 40 MG/4 ML Vial IV (10:33)
[2019-06-18] MEDS: predniSONE 20 MG Tablet NG (10:33)
--- NOTE | 2019-06-18 12:55 | CHAPLAIN ---
Type of Pastoral Visit ___ Initial Visit _x__ Follow-up Visit ___ On-call Visit ___ General Patient Visit ___ Spiritual Assessment ___ Family Conference ___ Bereavement ___ Rapid Response ___ Code Blue ___ Other (describe below) Pastoral Care Referral From _x__ Patient _x__ Family ___ Nurse ___ Physician ___ Wheel Assembler ___ Director Of Resource Development ___ Other (describe below) Sacrament/Intervention _x__ Active listening ___ Anointing ___ Sabianist ___ Bereavement ___ Communion ___ Audra exploration ___ ___ Life review _x__ Prayer ___ Reconciliation ___ Sacrament of Sick ___ Supportive presence ___ Wedding ___ Other (describe below) Pastoral Comments
[2019-06-18] MEDS: Chlorhexidine 15 ML PO (13:29)
[2019-06-18 13:36] LABS: Bedside Glucose 180 mg/dL (70-110)
--- NOTE | 2019-06-18 13:58 | CASEMGMT ---
Daughter Iman spoke w/SW, explained she does have medical POA for pt. SW requested she bring in the forms, she states will do so. ERIC Elkins
[2019-06-18 16:41] LABS: Allen Test POS; Base Excess 3 mmol/L (-2 to +2); Bicarbonate 26.8 mmol/L (22-26); Blood Gas Specimen Type ART; FI02 21; Mode CPAP PS; O2 Delivery Device Vent; PEEP 5; PO2 74 mmHG (75-100); PS 5; SITE R Radial; SO2 95 % (95-99); Time Given 1635; Total Carbon Dioxide 28 mmol/L; pCO2 39.5 mmHg (35-45); pH 7.44 (7.35-7.45)
[2019-06-18] MEDS: Menthol/Lanolin/Calamine/Znox 113 GM Tube 1 APPLIC TOPICAL ×2 (17:14→21:16)
[2019-06-18 17:21] LABS: Bedside Glucose 181 mg/dL (70-110)
[2019-06-18] MEDS: Metoprolol Tartrate 25 MG Tablet PO (21:13)
[2019-06-18] MEDS: Doxycycline 100 MG CAPSULE PO (21:16)
[2019-06-18 23:50] LABS: Bedside Glucose 161 mg/dL (70-110)
[2019-06-19] VITALS (21 sets, daily range): BP systolic 85–128; BP diastolic 32–76; PULSE 81–122; RESP 13–23; TEMP 36.3–37.1; O2SAT 90–100
[2019-06-19] MEDS: MELATONIN 3 MG TABLET PO ×2 (00:44→22:06)
[2019-06-19 05:07] LABS: Absolute Lymphocyte Count 1.58 X10^3/uL (0.83-4.51); Absolute Neutrophil Count 8.6 X10^3/uL (2.0-7.7); Basophil# 0.02 X10^3/uL; Basophil% 0.2 % (0-1); Eosinophil# 0.11 X10^3/uL; Hemoglobin 8.6 g/dL (12.0-15.0); Lymphocyte # 1.58 X10^3/ul (4.0); Lymphocyte % 14.2 % (19-41); Mean Corp Hgb Conc 30.7 g/dL (32-36); Mean Corpuscular Hgb 32.1 pg (27.0-32.0); Mean Corpuscular Volume 104.5 fL (81-99); Mean Platelet Vol. 9.1 fl (6.2-12.0); Monocyte# 0.85 X10^3/uL; Monocyte% 7.6 % (0-10); NRBC Flagged by Analyzer 0 % (0-5); Neutrophil # 8.55 X10^3/uL (2.7-7.7); Neutrophil % 76.6 % (47-70); POSITIVE MORPHOLOGY YES; Platelet Count 284 K/mm3 (150-450); RBC Distribution Width CV 21.5 % (11.6-14.6); RBC Distribution Width SD 82.3 fl (35.1-43.9); Red Blood Count 2.68 M/mm3 (4.2-5.4); White Blood Count 11.2 K/mm3 (4.4-11.0)
[2019-06-19 05:10] LABS: Differential Indicated SCAN CRITERIA MET
[2019-06-19 05:29] LABS: Anion Gap 3 (5-15); BUN 44 mg/dL (7-18); Calcium,Total 8.3 mg/dL (8.5-10.1); Chloride 108 mmol/L (98-107); Creatinine, Serum 1.69 mg/dL (0.55-1.02); EST Glomerular Filtration Rate 31 mL/min (>60); Est Glom Filt Rate - Afr Amer 38 mL/min (>60); Estimated Creatinine Clearance 25.27 ml/min; Glucose 140 mg/dL (74-106); Potassium 4.6 mmol/L (3.5-5.1); Sodium Level 142 mmol/L (136-145)
[2019-06-19 05:31] LABS: Anisocytosis 1+
[2019-06-19 05:56] LABS: Bedside Glucose 113 mg/dL (70-110)
--- NOTE | 2019-06-19 06:04 | PN_ITS ---
Subjective: The patient was seen and examined at the bedside this morning. Events from the last 24 hours have been reviewed. The patient is currently afebrile, hemodynamically stable and maintaining appropriate oxygen saturations on 2 L/min via nasal cannula. The patient was able to be successfully extubated last evening. No overnight events were noted by the nursing staff. Objective: The patient's most recent lab work, culture data and imaging studies have all been personally reviewed. General: Alert, Cooperative, No apparent distress HEENT: Atraumatic, PERRLA, Normocephalic Oral: No Gingival or Mucosal Lesions/ Ulcerations Neck: Supple, No Nodes, Trachea Midline Lungs: Normal air movement, No rhonchi, No wheeze, No rales Cardiovascular: Regular rate, Regular Rhythm, Normal S1, Normal S2, No murmurs Abdomen: Bowel Sounds Present, Soft, Non Tender, Obese Extremities: No clubbing, No cyanosis, Edema Musculoskeletal: No Muscle Wasting Lymphatic: No Cervical, Supraclavicular, or Inguinal Adenopathy Neurological: Neuro grossly intact Psych/Mental Status: Normal Affect, Appropriate Vital Signs Temp Pulse Resp BP Pulse Ox 98.6 F 114 H 22 H 122/41 H 100 06/19/19 04:00 06/19/19 05:00 06/19/19 05:00 06/19/19 05:00 06/19/19 05:00 Oxygen Flow Rate (L/min) 2 Oxygen Delivery Method Nasal Cannula Weight: 259 lb 0.69 oz Body Mass Index (BMI) 40.6 Finger Stick Blood Glucose 211 Intake and Output for Last 24 Hours 06/17/19 06/18/19 06/19/19 23:59 23:59 23:59 Intake Total 4257.85 / 4279.95 1145.97 / 1625.97 480 / 480 Output Total 2725 / 2725 2250 / 2550 300 / 300 Balance 1532.85 / 1554.95 -1104.03 / -924.03 180 / 180 Labs (Last 48 Hours) 06/17/19 06/17/19 06/17/19 05:53 11:08 16:00 WBC RBC Hgb Hct MCV MCH MCHC RDW Std Deviation RDW Coeff of Alicia Plt Count MPV Immature Gran % (Auto) Neut % (Auto) Lymph % (Auto) [place] % (Auto) Eos % (Auto) Baso % (Auto) Absolute Neuts (auto) Absolute Lymphs (auto) Nucleated RBC % Differential Comment Anisocytosis Macrocytosis Acanthocytes (Spur) PT INR Specimen Type Sample Site pH Bicarbonate Actual POC Total CO2 Base Excess O2 Saturation O2 % ABG pCO2 ABG pO2 Todd Test Respiration Rate O2 Delivery Device Vent Mode Tidal Volume POC PEEP POC Pressure Suppt Blood Gas Notified Whom Blood Gas Notified Time Sodium Potassium 5.8 H Chloride Carbon Dioxide Anion Gap BUN Creatinine Estim Creat Clear Calc Est GFR (MDRD) Af Amer Est GFR (MDRD) Non-Af BUN/Creatinine Ratio Glucose Calcium Total Bilirubin AST ALT Alkaline Phosphatase Total Protein Albumin Globulin Albumin/Globulin Ratio POC Glucose 135 H 109 06/17/19 06/17/19 06/18/19 19:08 23:46 04:20 WBC 8.0 RBC 2.90 L Hgb 9.1 L Hct 29.0 L MCV 100.0 H MCH 31.4 MCHC 31.4 L RDW Std Deviation 75.0 H RDW Coeff of Alicia 21.2 H Plt Count 294 MPV 9.8 Immature Gran % (Auto) 0.200 Neut % (Auto) 80.1 H Lymph % (Auto) 12.8 L [place] % (Auto) 6.6 Eos % (Auto) 0.2 Baso % (Auto) 0.1 Absolute Neuts (auto) 6.4 Absolute Lymphs (auto) 1.03 Nucleated RBC % 0 Differential Comment SCANNED Anisocytosis Macrocytosis 3+ Acanthocytes (Spur) 1+ PT INR Specimen Type Sample Site pH Bicarbonate Actual POC Total CO2 Base Excess O2 Saturation O2 % ABG pCO2 ABG pO2 Todd Test Respiration Rate O2 Delivery Device Vent Mode Tidal Volume POC PEEP POC Pressure Suppt Blood Gas Notified Whom Blood Gas Notified Time Sodium Potassium Chloride Carbon Dioxide Anion Gap BUN Creatinine Estim Creat Clear Calc Est GFR (MDRD) Af Amer Est GFR (MDRD) Non-Af BUN/Creatinine Ratio Glucose Calcium Total Bilirubin AST ALT Alkaline Phosphatase Total Protein Albumin Globulin Albumin/Globulin Ratio POC Glucose 199 H 186 H 06/18/19 06/18/19 06/18/19 04:20 04:20 05:20 WBC RBC Hgb Hct MCV MCH MCHC RDW Std Deviation RDW Coeff of Alicia Plt Count MPV Immature Gran % (Auto) Neut % (Auto) Lymph % (Auto) [place] % (Auto) Eos % (Auto) Baso % (Auto) Absolute Neuts (auto) Absolute Lymphs (auto) Nucleated RBC % Differential Comment Anisocytosis Macrocytosis Acanthocytes (Spur) PT 19.0 H INR 1.6 Specimen Type Sample Site pH Bicarbonate Actual POC Total CO2 Base Excess O2 Saturation O2 % ABG pCO2 ABG pO2 Todd Test Respiration Rate O2 Delivery Device Vent Mode Tidal Volume POC PEEP POC Pressure Suppt Blood Gas Notified Whom Blood Gas Notified Time Sodium 140 Potassium 5.2 H Chloride 107 Carbon Dioxide 27.0 Anion Gap 6 BUN 48 H Creatinine 1.77 H Estim Creat Clear Calc 24.13 Est GFR (MDRD) Af Amer 36 L Est GFR (MDRD) Non-Af 29 L BUN/Creatinine Ratio 27.1 H Glucose 182 H Calcium 8.4 L Total Bilirubin 1.40 H AST 38 H ALT 46 Alkaline Phosphatase 126 H Total Protein 6.0 L Albumin 1.3 L Globulin 4.7 H Albumin/Globulin Ratio 0.3 L POC Glucose 169 H 06/18/19 06/18/19 06/18/19 07:05 13:27 16:37 WBC RBC Hgb Hct MCV MCH MCHC RDW Std Deviation RDW Coeff of Alicia Plt Count MPV Immature Gran % (Auto) Neut % (Auto) Lymph % (Auto) [place] % (Auto) Eos % (Auto) Baso % (Auto) Absolute Neuts (auto) Absolute Lymphs (auto) Nucleated RBC % Differential Comment Anisocytosis Macrocytosis Acanthocytes (Spur) PT INR Specimen Type ART ART Sample Site R Radial R Radial pH 7.50 H 7.44 Bicarbonate Actual 24.6 26.8 H POC Total CO2 26 28 Base Excess 2 3 H O2 Saturation 99 95 O2 % 25 21 ABG pCO2 31.3 L 39.5 ABG pO2 113 H 74 L Todd Test NA POS Respiration Rate 12 O2 Delivery Device Vent Vent Vent Mode A-C CPAP PS Tidal Volume 450 POC PEEP 5 5 POC Pressure Suppt 5 Blood Gas Notified Whom ICU ICU Blood Gas Notified Time 704 1635 Sodium Potassium Chloride Carbon Dioxide Anion Gap BUN Creatinine Estim Creat Clear Calc Est GFR (MDRD) Af Amer Est GFR (MDRD) Non-Af BUN/Creatinine Ratio Glucose Calcium Total Bilirubin AST ALT Alkaline Phosphatase Total Protein Albumin Globulin Albumin/Globulin Ratio POC Glucose 180 H 06/18/19 06/18/19 06/19/19 17:12 23:42 04:50 WBC 11.2 H RBC 2.68 L Hgb 8.6 L Hct 28.0 L MCV 104.5 H MCH 32.1 H MCHC 30.7 L RDW Std Deviation 82.3 H RDW Coeff of Alicia 21.5 H Plt Count 284 MPV 9.1 Immature Gran % (Auto) 0.400 Neut % (Auto) 76.6 H Lymph % (Auto) 14.2 L [place] % (Auto) 7.6 Eos % (Auto) 1.0 Baso % (Auto) 0.2 Absolute Neuts (auto) 8.6 H Absolute Lymphs (auto) 1.58 Nucleated RBC % 0 Differential Comment Anisocytosis 1+ Macrocytosis Acanthocytes (Spur) PT INR Specimen Type Sample Site pH Bicarbonate Actual POC Total CO2 Base Excess O2 Saturation O2 % ABG pCO2 ABG pO2 Todd Test Respiration Rate O2 Delivery Device Vent Mode Tidal Volume POC PEEP POC Pressure Suppt Blood Gas Notified Whom Blood Gas Notified Time Sodium Potassium Chloride Carbon Dioxide Anion Gap BUN Creatinine Estim Creat Clear Calc Est GFR (MDRD) Af Amer Est GFR (MDRD) Non-Af BUN/Creatinine Ratio Glucose Calcium Total Bilirubin AST ALT Alkaline Phosphatase Total Protein Albumin Globulin Albumin/Globulin Ratio POC Glucose 181 H 161 H 06/19/19 06/19/19 04:50 05:48 WBC RBC Hgb Hct MCV MCH MCHC RDW Std Deviation RDW Coeff of Alicia Plt Count MPV Immature Gran % (Auto) Neut % (Auto) Lymph % (Auto) [place] % (Auto) Eos % (Auto) Baso % (Auto) Absolute Neuts (auto) Absolute Lymphs (auto) Nucleated RBC % Differential Comment Anisocytosis Macrocytosis Acanthocytes (Spur) PT INR Specimen Type Sample Site pH Bicarbonate Actual POC Total CO2 Base Excess O2 Saturation O2 % ABG pCO2 ABG pO2 Todd Test Respiration Rate O2 Delivery Device Vent Mode Tidal Volume POC PEEP POC Pressure Suppt Blood Gas Notified Whom Blood Gas Notified Time Sodium 142 Potassium 4.6 Chloride 108 H Carbon Dioxide 31.0 Anion Gap 3 L BUN 44 H Creatinine 1.69 H Estim Creat Clear Calc 25.27 Est GFR (MDRD) Af Amer 38 L Est GFR (MDRD) Non-Af 31 L BUN/Creatinine Ratio 26.0 H Glucose 140 H Calcium 8.3 L Total Bilirubin AST ALT Alkaline Phosphatase Total Protein Albumin Globulin Albumin/Globulin Ratio POC Glucose 113 H Microbiology 06/17/19 01:10 Sputum, Induced/Lukens Gram Stain - Final 06/17/19 01:10 Sputum, Induced/Lukens Respiratory Culture - Preliminary Appears to be normal respiratory coby. Further studies to follow. Clinical Impression(s) from Imaging Studies Chest X-Ray 06/16/19 11:44 IMPRESSION: The tip of the right central catheter is in the right atrium. The tip of the endotracheal tube is at the level of the lionel. It should be withdrawn approximately 3.5 cm. Small bilateral effusions with increased markings at the left lung base. Electronically Signed: Yonatan Howe, at 13:09 EST , Service support , Chest X-Ray 06/16/19 14:42 IMPRESSION: Stable x-ray examination of the chest. Tip of the endotracheal tube remains near the lionel, aimed at the right mainstem bronchus. Electronically Signed: Burt Lou MD at 16:54 EST , Service support , Chest X-Ray 06/18/19 06:08 IMPRESSION: Interval improvement in the left pleural effusion with stable bibasilar atelectasis and/or infiltrates. The tip of the endotracheal tube is at the level of the lionel. Electronically Signed: Yonatan Howe, at 10:40 EST , Service support , Medical Necessity - Tobacco Use Smoking Status: Former smoker Tobacco Use: Cigarettes Assessment/Plan All Active Problems (Last Updated 06/16/19 @ 15:29 by Andrews Martinez DO) History of respiratory failure with hypo (Acute) Acute kidney injury (Acute) Hyperlipidemia (Acute) Acute hyperkalemia (Acute) RECOMMENDATIONS: 1. Transition to prednisone 10 mg daily by mouth. 2. Wean supplemental oxygen to maintain saturations at or above 90%. 3. Encourage incentive spirometer use and mobilize patient as tolerated. 4. Consider cardiology consult, given atrial fibrillation with flecainide therapy. 5. Continue Eliquis. 6. The patient is medically stable for transfer out of the ICU. IMPRESSIONS: 1. Acute hypoxic respiratory failure Unclear etiology at this time. Patient reportedly was saturating well on presentation, but then was described as mottled and emergently intubated. Unclear if patient had an arrhythmia versus possible sleep apnea. Clinical suspicion for apnea secondary to respiratory alkalosis. The patient was able to be successfully extubated on June 18. Oxygen requirement is minimal. Continue to wean as tolerated to maintain saturations at or above 90%. Encourage incentive spirometer use and mobilize patient as tolerated. No readily identifiable pulmonary infectious process, as sputum culture is negative. 2. Possible acute kidney injury/hyperkalemia Significant hyperkalemia on presentation. Unclear if this is related to a respiratory arrest with acidosis. 3. Reported insulin-dependent diabetes mellitus Patient does not have an anion gap at this time, but glucose is somewhat elevated. Patient reportedly is on prednisone therapy at this time and this may account for current findings. Will treat with sliding scale insulin for now. Okay to change to AC/HS dosing at this time. 4. A. fib with bradycardia Baseline cardiac function is unclear at this time. Patient reportedly is on flecainide therapy. Patient remains in atrial fibrillation. Would consider cardiology consult given reported difficult to control atrial fibrillation in the past. 5. Possible GERD/anxiety/osteopenia/hypertension/hypercholesterolemia/morbid obesity/poor history Complicates care, management, recovery and prognosis. This note was generated with [employer] dictation software. It may contain incorrect words, spelling, and punctuation that were not noted in checking the note before signing. Code Visit Inpatient E&M: 58046 [facility] L3
--- NOTE | 2019-06-19 08:24 | PCM.PN.HOSP ---
Patient Problems: Active and Suspected Problems (Last Updated 06/16/19 @ 15:29 by Andrews Martinez DO) Acute hyperkalemia (Acute) Reason for Visit: hyperkalemia Subjective: Extubated yesterday. Feels well today. No shortness of breath. Vitals/I&O's: Vital Signs Temp Pulse Resp BP Pulse Ox 37.0 C 109 H 23 H 100/76 100 06/19/19 04:00 06/19/19 06:00 06/19/19 06:00 06/19/19 06:00 06/19/19 06:00 Oxygen Flow Rate (L/min) 2 Oxygen Delivery Method Nasal Cannula Weight: 117.5 kg Body Mass Index (BMI) 40.6 Finger Stick Blood Glucose 211 Intake and Output for Last 24 Hours 06/17/19 06/18/19 06/19/19 23:59 23:59 23:59 Intake Total 4257.85 / 4279.95 1145.97 / 1625.97 480 / 480 Output Total 2725 / 2725 2250 / 2550 450 / 450 Balance 1532.85 / 1554.95 -1104.03 / -924.03 General: Alert, Cooperative, No apparent distress HEENT: Atraumatic, Normocephalic Oral: Moist Mucosa, No Gingival or Mucosal Lesions/ Ulcerations Neck: No Nodes, Trachea Midline Lungs: Clear to auscultation, Normal air movement, No rhonchi, No wheeze, No rales Cardiovascular: Regular rate, Regular Rhythm, Normal S1, Normal S2 Abdomen: Bowel Sounds Present, Soft, Non Tender, Non-Distended Extremities: No Calf Tenderness, Edema Skin: No rashes, No breakdown Psych/Mental Status: Normal Affect, Appropriate Microbiology Past 72 Hours 06/17/19 01:10 Sputum, Induced/Lukens Gram Stain - Final 06/17/19 01:10 Sputum, Induced/Lukens Respiratory Culture - Preliminary Appears to be normal respiratory coby. Further studies to follow. Laboratory Results 06/18/19 13:27: POC Glucose 180 H 06/18/19 16:37: Specimen Type ART, Sample Site R Radial, pH 7.44, Bicarbonate Actual 26.8 H, POC Total CO2 28, Base Excess 3 H, O2 Saturation 95, O2 % 21, ABG pCO2 39.5, ABG pO2 74 L, Todd Test POS, O2 Delivery Device Vent, Vent Mode CPAP PS, POC PEEP 5, POC Pressure Suppt 5, Blood Gas Notified Whom ICU MD, Blood Gas Notified Time 1635 06/18/19 17:12: POC Glucose 181 H 06/18/19 23:42: POC Glucose 161 H 06/19/19 04:50: WBC 11.2 H, RBC 2.68 L, Hgb 8.6 L, Hct 28.0 L, MCV 104.5 H, MCH 32.1 H, MCHC 30.7 L, RDW Std Deviation 82.3 H, RDW Coeff of Alicia 21.5 H, Plt Count 284, MPV 9.1, Immature Gran % (Auto) 0.400, Neut % (Auto) 76.6 H, Lymph % (Auto) 14.2 L, [place] % (Auto) 7.6, Eos % (Auto) 1.0, Baso % (Auto) 0.2, Absolute Neuts (auto) 8.6 H, Absolute Lymphs (auto) 1.58, Nucleated RBC % 0, Anisocytosis 1+ 06/19/19 04:50: Sodium 142, Potassium 4.6, Chloride 108 H, Carbon Dioxide 31.0, Anion Gap 3 L, BUN 44 H, Creatinine 1.69 H, Estim Creat Clear Calc 25.27, Est GFR (MDRD) Af Amer 38 L, Est GFR (MDRD) Non-Af 31 L, BUN/Creatinine Ratio 26.0 H, Glucose 140 H, Calcium 8.3 L 06/19/19 05:48: POC Glucose 113 H Current Medications Calamine/Phenol (Calmoseptine Ointment) 1 applic TOPICAL BID [facility]; Protocol Last Admin: 06/18/19 21:16 Dose: 1 applicatio Documented by: Doxycycline Monohydrate (Doxycycline) 100 mg PO BID [facility] Stop: 06/23/19 23:59 Last Admin: 06/18/19 21:16 Dose: 100 mg Documented by: Famotidine (Pepcid) 20 mg PO DAILY [facility] Glucagon () 1 mg IM .X1 PRN PRN Reason: Hypoglycemia Dextrose (Dextrose 10%-Water) 250 mls @ 999 mls/hr IV .Q16M PRN; Protocol PRN Reason: HYPOGLYCEMIA Sodium Chloride () 250 mls @ 15 mls/hr IV .[id number] PRN PRN Reason: Saline Flush Sodium Chloride () 250 mls @ 15 mls/hr IV .[id number] PRN PRN Reason: Additional IVPB Infusion Insulin Human Lispro (Humalog Kwikpen (Bkc)) 0 unit SC ACHS NABIL; Protocol Melatonin (Melatonin) 3 mg PO QHS PRN PRN Reason: INSOMNIA Last Admin: 06/19/19 00:44 Dose: 3 mg Documented by: Metoprolol Tartrate (Lopressor (Beta Lucina)) 12.5 mg PO BID [facility] Prednisone () 20 mg PO DAILYCM [facility] Sodium Chloride () 10 - 40 ml IV UD PRN PRN Reason: SALINE FLUSH Last Admin: 06/18/19 10:33 Dose: 20 ml Documented by: STROKE Vital Signs/Narrative: Vital Signs Pulse Resp BP Pulse Ox 06/19/19 06:00 109 H 23 H 100/76 100 06/19/19 05:00 114 H 22 H 122/41 H 100 Medical Necessity - Tobacco Use Smoking Status: Former smoker Tobacco Use: Cigarettes Assessment/Plan All Active Problems (Last Updated 06/16/19 @ 15:29 by Andrews Martinez DO) History of respiratory failure with hypo (Acute) Acute kidney injury (Acute) Hyperlipidemia (Acute) Acute hyperkalemia (Acute) 1. Hyperkalemia resolved Likely iatrogenic from spironolactone as well as potassium that she was receiving. Daughter reported that the potassium had stopped being given at [facility] but was being given at the halfway. Patient received calcium chloride x2, sodium bicarb x2, kayexalate x1 continue to hold spironolactone and potassium 2. Acute respiratory failure extubated 06/18 Not hypoxic nor hypercapnic but exacerbated due to somnolence and need for airway protection stable on 2 liters NC 3. CARLENE On CKD 4 No baseline labs to compare to at this time. Currently awaiting lab work from [facility] to compare to. 4. Lactic acidosis Clinically not in septic shock. Monitor Fluids 5. Paroxysmal atrial fibrillation atrial fibrillation at this time continue with flecainide as well as metoprolol resume apixaban 6. Recent bacteremia and cellulitis: Continue with the doxycycline as previously ordered through the . Patient had had right ankle cellulitis. Had a REYNALDO that showed no endocarditis. 7. VTE prophylaxis: Patient is already anticoagulated. Add enoxaparin when INR less than 2. 8. IV malposition: Not true malfunction but the right subclavian triple-lumen catheter was 20cm device clearly marked on the hub and likely clearly marked on the packaging. The triple-lumen catheter was advanced all the way to the hub. On the x-ray, I measured it and it measured approximately 82 mm within the atrium. The triple-lumen catheter was pulled back by me roughly 9 cm and follow-up x-ray reveals good placement at this time. Dr. Hill informed me he would check the placement of the devices with CXR before transfer up to the floor. His note states, Will obtain chest x-ray to confirm placement of endotracheal tube, OG and right subclavian triple-lumen line. Though does not specify proper placement. Patient tolerated pulling back on the IV well. The IV sutures were first cut and then new ones placed at the new location. 9. Disposition: Will transfer to PCU today. Code Visit Inpatient E&M: 15966 Subs Hosp L2
[2019-06-19] MEDS: predniSONE 20 MG Tablet PO (09:13)
[2019-06-19] MEDS: Doxycycline 100 MG CAPSULE PO ×2 (09:13→22:01)
[2019-06-19] MEDS: Menthol/Lanolin/Calamine/Znox 113 GM Tube 1 APPLIC TOPICAL ×2 (09:14→22:02)
[2019-06-19] MEDS: Famotidine 20 MG Tablet PO (09:14)
[2019-06-19 09:17] LABS: Ferritin 257 ng/mL (8-252); Iron 30 ug/dL (50-170); Iron Binding Capacity,Total 186 ug/dL (250-450); PERCENT IRON SATURATION 16.1 % (15.0-55.0)
--- NOTE | 2019-06-19 09:31 | CASEMGMT ---
SW spoke w/pt and granddaughter in the room in regard to plan. Pt agreeable to TCU at discharge. SW notified SW on PCU of plan. SW called [facility] and let Lashell know pt will not be returning. STEW left a message on the referral phone for TCU notifying them pt will likely be ready for discharge tomorrow. ERIC Elkins
[2019-06-19 10:41] LABS: Vitamin B12 677 pg/mL (211-911)
[2019-06-19] MEDS: APIXABAN 5 MG TABLET PO ×2 (11:57→22:01)
[2019-06-19] MEDS: Lisinopril 10 MG Tablet PO (11:57)
[2019-06-19] MEDS: Metoprolol Tartrate 25 MG Tablet 12.5 MG PO ×2 (11:57→22:01)
[2019-06-19] MEDS: Insulin Lispro 100 UNIT/ML INSULN.PEN SC ×3 (11:58→22:02)
[2019-06-19] MEDS: Flecainide 100 MG Tablet 50 MG PO ×2 (12:07→22:01)
[2019-06-19 12:15] LABS: Bedside Glucose 164 mg/dL (70-110)
--- NOTE | 2019-06-19 13:42 | CASEMGMT ---
Patient's daughter brought in patient's Healthcare Power of Material Dispatcher and Healthcare Living Will. SW made copies and placed them in her chart. Kasey MERCEDES MSW
[2019-06-19 16:20] LABS: Bedside Glucose 230 mg/dL (70-110)
[2019-06-19 21:36] LABS: Bedside Glucose 189 mg/dL (70-110)
[2019-06-19] MEDS: Magnesium Oxide 400 MG Tablet PO (22:01)
[2019-06-19] MEDS: Atorvastatin Calcium 20 MG Tablet PO (22:01)
[2019-06-20] VITALS (11 sets, daily range): BP systolic 125–166; BP diastolic 50–84; PULSE 76–103; RESP 15–17; TEMP 36.3–36.5; O2SAT 91–100
[2019-06-20] MEDS: 0.9% Saline Lock 10 ML Syringe IV ×3 (03:31→12:41)
[2019-06-20 03:45] LABS: Absolute Lymphocyte Count 1.21 X10^3/uL (0.83-4.51); Absolute Neutrophil Count 6.9 X10^3/uL (2.0-7.7); Basophil# 0.02 X10^3/uL; Basophil% 0.2 % (0-1); Eosinophil# 0.04 X10^3/uL; Eosinophils% 0.5 % (0-5); Hematocrit 27.7 % (37-47); Hemoglobin 8.2 g/dL (12.0-15.0); Lymphocyte # 1.21 X10^3/ul (4.0); Lymphocyte % 13.7 % (19-41); Mean Corp Hgb Conc 29.6 g/dL (32-36); Mean Corpuscular Hgb 31.8 pg (27.0-32.0); Mean Corpuscular Volume 107.4 fL (81-99); Mean Platelet Vol. 9.9 fl (6.2-12.0); Monocyte# 0.65 X10^3/uL; Monocyte% 7.3 % (0-10); NRBC Flagged by Analyzer 0 % (0-5); POSITIVE MORPHOLOGY YES; Platelet Count 260 K/mm3 (150-450); RBC Distribution Width CV 21.2 % (11.6-14.6); RBC Distribution Width SD 82.3 fl (35.1-43.9); Red Blood Count 2.58 M/mm3 (4.2-5.4); White Blood Count 8.9 K/mm3 (4.4-11.0)
[2019-06-20 03:53] LABS: Differential Indicated SCAN CRITERIA MET
[2019-06-20 04:01] LABS: Anion Gap 4 (5-15); BUN 47 mg/dL (7-18); Calcium,Total 8.4 mg/dL (8.5-10.1); Chloride 105 mmol/L (98-107); Creatinine, Serum 1.62 mg/dL (0.55-1.02); EST Glomerular Filtration Rate 33 mL/min (>60); Est Glom Filt Rate - Afr Amer 39 mL/min (>60); Estimated Creatinine Clearance 26.36 ml/min; Glucose 161 mg/dL (74-106); Potassium 4.8 mmol/L (3.5-5.1); Sodium Level 141 mmol/L (136-145)
[2019-06-20 04:07] LABS: Differential Comment SCANNED; Hypochromasia 2+; Macrocytosis 3+
[2019-06-20 06:45] LABS: Bedside Glucose 141 mg/dL (70-110)
--- NOTE | 2019-06-20 07:37 | PN_ITS ---
Patient Problems: Active and Suspected Problems (Last Updated 06/16/19 @ 15:29 by Andrews Martinez DO) Acute hyperkalemia (Acute) Subjective: Patient transferred out of the intensive care unit yesterday. Patient does report a variably productive cough, but no shortness of breath with lying in bed. Patient does not report any hemoptysis or other bleeding complications. - Physical Exam Vitals/I&O's: Vital Signs Temp Pulse Resp BP Pulse Ox 36.3 C L 86 16 125/50 H 99 06/20/19 03:30 06/20/19 03:30 06/20/19 03:30 06/20/19 03:30 06/20/19 03:30 Oxygen Flow Rate (L/min) 1 Oxygen Delivery Method Nasal Cannula Weight: 115.4 kg Body Mass Index (BMI) 40.6 Finger Stick Blood Glucose 211 Intake and Output for Last 24 Hours 06/18/19 06/19/19 06/20/19 23:59 23:59 23:59 Intake Total 1145.97 / 1625.97 1370 / 1370 120 / 120 Output Total 2250 / 2550 1050 / 1050 175 / 175 Balance -1104.03 / -924.03 320 / 320 -55 / -55 General: Alert, Oriented x3, Cooperative, No apparent distress, Well developed, Well nourished, - - Morbidly obese. Speaking in full sentences. HEENT: Atraumatic, PERRLA, EOMI, Normocephalic, - - No scleral icterus or injection noted Oral: Moist Mucosa, No Gingival or Mucosal Lesions/ Ulcerations Neck: Supple, No Nodes, Trachea Midline, JVD, Right Lungs: No rhonchi, No wheeze, No rales, Diminished, - - Fair effort Cardiovascular: Normal S1, Normal S2, No murmurs, Irregular Rate, No rub noted, No Gallop Abdomen: Bowel Sounds Present, Soft, Non Tender, Non-Distended, Obese Extremities: No clubbing, No cyanosis, Edema Skin: - - No significant change compared to previous Musculoskeletal: No Tenderness to Palpation of Joints or Extremities Lymphatic: No Cervical, Supraclavicular, or Inguinal Adenopathy Neurological: Cranial nerves II-XII grossly intact, Neuro grossly intact, Motor Exam 5/5 strength throughout Psych/Mental Status: Appropriate, Flat Affect Microbiology Past 72 Hours 06/17/19 01:10 Sputum, Induced/Lukens Gram Stain - Final 06/17/19 01:10 Sputum, Induced/Lukens Respiratory Culture - Preliminary Appears to be normal respiratory coby. Further studies to follow. Laboratory Results 06/19/19 04:50: Iron 30 L, TIBC 186 L, Iron Saturation 16.1, Ferritin 257 H, Folate 7.60 06/19/19 08:58: Vitamin B12 677 06/19/19 11:51: POC Glucose 164 H 06/19/19 16:16: POC Glucose 230 H 06/19/19 21:20: POC Glucose 189 H 06/20/19 03:40: WBC 8.9, RBC 2.58 L, Hgb 8.2 L, Hct 27.7 L, MCV 107.4 H, MCH 31.8, MCHC 29.6 L, RDW Std Deviation 82.3 H, RDW Coeff of Alicia 21.2 H, Plt Count 260, MPV 9.9, Immature Gran % (Auto) 0.300, Neut % (Auto) 78.0 H, Lymph % (Auto) 13.7 L, [place] % (Auto) 7.3, Eos % (Auto) 0.5, Baso % (Auto) 0.2, Absolute Neuts (auto) 6.9, Absolute Lymphs (auto) 1.21, Nucleated RBC % 0, Differential Comment SCANNED, Hypochromasia 2+, Macrocytosis 3+ 06/20/19 03:40: Sodium 141, Potassium 4.8, Chloride 105, Carbon Dioxide 32.0, Anion Gap 4 L, BUN 47 H, Creatinine 1.62 H, Estim Creat Clear Calc 26.36, Est GFR (MDRD) Af Amer 39 L, Est GFR (MDRD) Non-Af 33 L, BUN/Creatinine Ratio 29.0 H , Glucose 161 H, Calcium 8.4 L 06/20/19 06:39: POC Glucose 141 H Current Medications Apixaban (Eliquis) 5 mg PO BID [facility] Last Admin: 06/19/19 22:01 Dose: 5 mg Documented by: Atorvastatin Calcium (Lipitor) 20 mg PO QHS [facility] Last Admin: 06/19/19 22:01 Dose: 20 mg Documented by: Calamine/Phenol (Calmoseptine Ointment) 1 applic TOPICAL BID [facility]; Protocol Last Admin: 06/19/19 22:02 Dose: 1 applicatio Documented by: Doxycycline Monohydrate (Doxycycline) 100 mg PO BID [facility] Stop: 06/23/19 23:59 Last Admin: 06/19/19 22:01 Dose: 100 mg Documented by: Famotidine (Pepcid) 20 mg PO DAILY [facility] Last Admin: 06/19/19 09:14 Dose: 20 mg Documented by: Flecainide Acetate (Tambocor) 50 mg PO BID [facility] Last Admin: 06/19/19 22:01 Dose: 50 mg Documented by: Glucagon () 1 mg IM .X1 PRN PRN Reason: Hypoglycemia Dextrose (Dextrose 10%-Water) 250 mls @ 999 mls/hr IV .Q16M PRN; Protocol PRN Reason: HYPOGLYCEMIA Sodium Chloride () 250 mls @ 15 mls/hr IV .[id number] PRN PRN Reason: Saline Flush Sodium Chloride () 250 mls @ 15 mls/hr IV .[id number] PRN PRN Reason: Additional IVPB Infusion Insulin Human Lispro (Humalog Kwikpen (Bkc)) 0 unit SC [facility]; Protocol Last Admin: 06/20/19 06:42 Dose: Not Given Documented by: Lisinopril (Zestril) 10 mg PO DAILY [facility] Last Admin: 06/19/19 11:57 Dose: 10 mg Documented by: Magnesium Oxide (Mag-Ox 400) 400 mg PO BID [facility] Last Admin: 06/19/19 22:01 Dose: 400 mg Documented by: Melatonin (Melatonin) 3 mg PO QHS PRN PRN Reason: INSOMNIA Last Admin: 06/19/19 22:06 Dose: 3 mg Documented by: Metoprolol Tartrate (Lopressor (Beta Lucina)) 12.5 mg PO BID [facility] Last Admin: 06/19/19 22:01 Dose: 12.5 mg Documented by: [facility] () [facility] Stop: 06/20/19 08:01 Last Admin: 06/19/19 09:13 Dose: 20 mg Documented by: Sodium Chloride () 10 - 40 ml IV UD PRN PRN Reason: SALINE FLUSH Last Admin: 06/20/19 03:31 Dose: 20 ml Documented by: Medical Necessity - Tobacco Use Smoking Status: Former smoker Tobacco Use: Cigarettes Assessment/Plan All Active Problems (Last Updated 06/16/19 @ 15:29 by Andrews Martinez DO) History of respiratory failure with hypo (Acute) Acute kidney injury (Acute) Hyperlipidemia (Acute) Acute hyperkalemia (Acute) RECOMMENDATIONS: 1. Diuresis as tolerated 2. Consider weaning prednisone to 10 mg 3. Consider placing stop date on doxycycline 4. Continue Eliquis therapy indefinitely 5. Encourage incentive spirometer and out of bed as tolerated. 6. If patient is able to make it to room air using incentive spirometer, may sign off from a pulmonary perspective IMPRESSIONS: 1. Acute hypoxic respiratory failure Unclear etiology at this time. Patient reportedly was saturating well on presentation, but then was described as mottled and emergently intubated. Unclear if patient had an arrhythmia versus possible sleep apnea. Patient is on minimal nasal cannula oxygen at this time. This may be secondary to volume resuscitation associated with renal failure. Patient would benefit from some diuresis, but clinical suspicion is for atelectasis leading to the majority of a mismatch. Out of bed as tolerated with incentive spirometer. 2. Possible acute kidney injury/hyperkalemia Significant hyperkalemia on presentation. Patient's potassium level is within normal limits at this time. Would continue to diurese. Patient appears to be at her baseline renal function. Patient has had an OPAL inhibitor reinitiated, so we will need to watch this closely. 3. Reported insulin-dependent diabetes mellitus Patient does not have an anion gap at this time, but glucose is somewhat elevated. Patient reportedly is on prednisone therapy at this time and this may account for current findings. Okay to resume baseline diabetic therapy from my perspective 4. A. fib with bradycardia Baseline cardiac function is unclear at this time. Patient reportedly is on flecainide therapy. Patient remains in atrial fibrillation. Flecainide was held by hospitalist on presentation. Would consider cardiology consult given reported difficult to control atrial fibrillation in the past. 5. Possible GERD/anxiety/osteopenia/hypertension/hypercholesterolemia/morbid obesity/poor history Complicates care, management, recovery and prognosis. Baseline medications used to hypothesize some baseline medical conditions. Await for POA to arrive to provide more history. Code Visit Inpatient E&M: 97249 Subs Hosp L2
--- NOTE | 2019-06-20 09:55 | NURSING ---
PT/OT state that while they were assisting patient with transfer from bed to chair, patient became increasingly weak and was lowered to floor. Gait belt was in use. No injury. Vitals obtained. Patient placed on hover mat x4 assist and transferred back to bed. Bed alarm on. tolerated transfer well. Patient's daughters Maxine and Iman aware of same.
--- NOTE | 2019-06-20 10:44 | TREXTCAR_ITS ---
- Diet 06/18/19 19:05 Diet: Cardiac: Calorie-Controlled Dietary Modifications:: Low Potassium Restriction Is pt able to select menu?: Yes How many daily calories?: 1600 calorie fluid restrict 1500 cc/day - Routine Orders/Code Status Routine Lab Work: BMP - weekly - Therapies Physical Therapy: Eval and Treat Occupational Therapy: Eval and Treat - Allergies/Procedures Done in Hospital Allergies/Adverse Reactions: Allergies Penicillins [PCN] Allergy (Verified 06/16/19 11:51) Other shellfish derived Allergy (Verified 06/16/19 11:53) Other Procedures: - - right SC TLC. ETT - Type of Care/Length of Stay Estimated LOS: Convalescent Care Less Than 30 days Type of Care Needed: Skilled Rehab Potential: Fair Prognosis: Fair - Additional Orders/Day of Discharge Day of Discharge: 06/20/19 - Dietary and Speech Recommendations Dietitian Recommendations/Changes: Continue 1600 calorie controlled, cardiac diet w/ potassium restriction as indicated. As potassium level remains within normal limits/stable, potassium restriction will likely not be warranted. Glucerna ONS w/ medpass if PO intake at meals is poor. Hx of esophageal stricture, recommend BLOOD [employer]ANK [employer]ORAT[employer] PROFESSIONAL evaluation if chewing/swallowing difficulties become evident. - Follow Up Care Primary Care Physician: Luis Adhikari MD [NON-STAFF] - Within 2 Weeks
--- NOTE | 2019-06-20 10:47 | DS.PCM_ITS ---
Discharge Date and Diagnosis - Problem List Patient Problems: Active and Suspected Problems (Last Updated 06/16/19 @ 15:29 by Andrews Martinez DO) Acute hyperkalemia (Acute) Date of Admission: 06/16/19 Date of Discharge: 06/20/19 - Primary Discharge Diagnosis Active and Suspected Problems (Last Updated 06/16/19 @ 15:29 by Andrews Martinez DO) Acute hyperkalemia (Acute) 1. Hyperkalemia * resolved * Likely iatrogenic from spironolactone as well as potassium that she was receiving. Daughter reported that the potassium had stopped being given at [facility] but was being given at the [facility]. * Patient received calcium chloride x2, sodium bicarb x2, kayexalate x1 * continue to hold spironolactone and potassium 2. Acute respiratory failure * extubated 06/18 * Not hypoxic nor hypercapnic but exacerbated due to somnolence and need for airway protection * stable on 2 liters NC * due to somnolence. Intubated for airway protection. 3. CARLENE * improved * On CKD 4 * No baseline labs to compare to at this time. 4. Lactic acidosis * Clinically was not in septic shock. * resolved 5. Paroxysmal atrial fibrillation * atrial fibrillation at this time * continue with flecainide as well as metoprolol * resume apixaban 6. Recent bacteremia and cellulitis: Continue with the doxycycline as previously ordered through the . Patient had had right ankle cellulitis. Had a REYNALDO that showed no endocarditis. 7. IV malposition: Not true malfunction but the right subclavian triple-lumen catheter was 20cm device clearly marked on the hub and likely clearly marked on the packaging. The triple-lumen catheter was advanced all the way to the hub. On the x-ray, I measured it and it measured approximately 82 mm within the atrium. The triple-lumen catheter was pulled back by me roughly 9 cm and follow-up x-ray reveals good placement at this time. Dr. Hill informed me he would check the placement of the devices with CXR before transfer up to the floor. His note states, Will obtain chest x-ray to confirm placement of endotracheal tube, OG and right subclavian triple-lumen line. Though does not specify proper placement. Patient tolerated pulling back on the IV well. The IV sutures were first cut and then new ones placed at the new location. - Secondary Discharge Diagnosis Chronic Problems (Last Updated 06/16/19 @ 15:29 by Andrews Martinez DO) Hypertension (Chronic) Paroxysmal atrial fibrillation (Chronic) Sick sinus syndrome (Chronic) Anticoagulant long-term use (Chronic) Anemia, unspecified (Chronic) Renal failure (ARF), acute on chronic (Chronic) Atrial fibrillation by electrocardiogram (Chronic) Hospital Course and Treatment Imaging Results: Clinical Impression(s) from Imaging Studies Chest X-Ray 06/16/19 11:44 IMPRESSION: The tip of the right central catheter is in the right atrium. The tip of the endotracheal tube is at the level of the lionel. It should be withdrawn approximately 3.5 cm. Small bilateral effusions with increased markings at the left lung base. Electronically Signed: Yonatan Howe, at 13:09 EST , Service support , Chest X-Ray 06/16/19 14:42 IMPRESSION: Stable x-ray examination of the chest. Tip of the endotracheal tube remains near the lionel, aimed at the right mainstem bronchus. Electronically Signed: Burt Lou MD at 16:54 EST , Service support , Chest X-Ray 06/18/19 06:08 IMPRESSION: Interval improvement in the left pleural effusion with stable bibasilar atelectasis and/or infiltrates. The tip of the endotracheal tube is at the level of the lionel. Electronically Signed: Yonatan Howe, at 10:40 EST , Service support , Procedures: Central line placement, Intubation Summary of Care Provided: The patient is a 78 year old F abnormal labs with elevated potassium. Brought to the emergency room and in route became unresponsive. Patient did have CPR but is felt by the emergency room physician patient did not actually have cardiac arrest. So patient was intubated in the emergency room. Patient received rounds of medications to improve her potassium and patient was admitted to the ICU. Patient's potassium did recover and patient was eventually extubated. Patient has done well since then. Patient will continue with a hold the spironolactone which was the likely etiology of her hyperkalemia. Patient does have edema and will be resumed on diuretics but with furosemide. Will be holding off on Spironolactone as well as metolazone that she was on previously. DW patient's daughter, Maxine, at bedside. [] Patient Problems: Active and Suspected Problems (Last Updated 06/16/19 @ 15:29 by Cipriano Carrasco) Acute hyperkalemia (Acute) - Physical Exam Vitals/I&O's: Vital Signs Temp Pulse Resp BP Pulse Ox 36.5 C L 94 17 125/65 H 98 06/20/19 09:15 06/20/19 09:15 06/20/19 09:15 06/20/19 09:15 06/20/19 09:15 Oxygen Flow Rate (L/min) 1 Oxygen Delivery Method Nasal Cannula Weight: 115.4 kg Body Mass Index (BMI) 40.6 Finger Stick Blood Glucose 211 Intake and Output for Last 24 Hours 06/18/19 06/19/19 06/20/19 23:59 23:59 23:59 Intake Total 1145.97 / 1625.97 1370 / 1370 120 / 120 Output Total 2250 / 2550 1050 / 1050 175 / 175 Balance -1104.03 / -924.03 320 / 320 -55 / -55 General: Alert HEENT: Normocephalic Neck: No Nodes, Trachea Midline, - - +JVD Lungs: Normal air movement, No rhonchi, No wheeze, - - bibasilar crackles Cardiovascular: Regular rate, Regular Rhythm, Normal S1, Normal S2 Abdomen: Bowel Sounds Present, Soft, Non Tender, Non-Distended Extremities: No Calf Tenderness, Edema Psych/Mental Status: Normal Affect, Appropriate Microbiology Past 72 Hours 06/17/19 01:10 Sputum, Induced/Lukens Gram Stain - Final 06/17/19 01:10 Sputum, Induced/Lukens Respiratory Culture - Final Laboratory Results 06/19/19 11:51: POC Glucose 164 H 06/19/19 16:16: POC Glucose 230 H 06/19/19 21:20: POC Glucose 189 H 06/20/19 03:40: WBC 8.9, RBC 2.58 L, Hgb 8.2 L, Hct 27.7 L, MCV 107.4 H, MCH 31.8, MCHC 29.6 L, RDW Std Deviation 82.3 H, RDW Coeff of Alicia 21.2 H, Plt Count 260, MPV 9.9, Immature Gran % (Auto) 0.300, Neut % (Auto) 78.0 H, Lymph % (Auto) 13.7 L, [place] % (Auto) 7.3, Eos % (Auto) 0.5, Baso % (Auto) 0.2, Absolute Neuts (auto) 6.9, Absolute Lymphs (auto) 1.21, Nucleated RBC % 0, Differential Comment SCANNED, Hypochromasia 2+, Macrocytosis 3+ 06/20/19 03:40: Sodium 141, Potassium 4.8, Chloride 105, Carbon Dioxide 32.0, Anion Gap 4 L, BUN 47 H, Creatinine 1.62 H, Estim Creat Clear Calc 26.36, Est GFR (MDRD) Af Amer 39 L, Est GFR (MDRD) Non-Af 33 L, BUN/Creatinine Ratio 29.0 H , Glucose 161 H, Calcium 8.4 L 06/20/19 06:39: POC Glucose 141 H Current Medications Apixaban (Eliquis) 5 mg PO BID [facility] Last Admin: 06/19/19 22:01 Dose: 5 mg Documented by: Atorvastatin Calcium (Lipitor) 20 mg PO QHS [facility] Last Admin: 06/19/19 22:01 Dose: 20 mg Documented by: Calamine/Phenol (Calmoseptine Ointment) 1 applic TOPICAL BID [facility]; Protocol Last Admin: 06/19/19 22:02 Dose: 1 applicatio Documented by: Doxycycline Monohydrate (Doxycycline) 100 mg PO BID [facility] Stop: 06/23/19 23:59 Last Admin: 06/19/19 22:01 Dose: 100 mg Documented by: Famotidine (Pepcid) 20 mg PO DAILY [facility] Last Admin: 06/19/19 09:14 Dose: 20 mg Documented by: Flecainide Acetate (Tambocor) 50 mg PO BID [facility] Last Admin: 06/19/19 22:01 Dose: 50 mg Documented by: Furosemide (Lasix) 40 mg IV X1 ONE Stop: 06/20/19 10:40 Glucagon () 1 mg IM .X1 PRN PRN Reason: Hypoglycemia Dextrose (Dextrose 10%-Water) 250 mls @ 999 mls/hr IV .Q16M PRN; Protocol PRN Reason: HYPOGLYCEMIA Sodium Chloride () 250 mls @ 15 mls/hr IV .[id number] PRN PRN Reason: Saline Flush Sodium Chloride () 250 mls @ 15 mls/hr IV .[id number] PRN PRN Reason: Additional IVPB Infusion Insulin Human Lispro (Humalog Kwikpen (Bkc)) 0 unit SC ACHS [facility]; Protocol Last Admin: 06/20/19 06:42 Dose: Not Given Documented by: Lisinopril (Zestril) 10 mg PO DAILY [facility] Last Admin: 06/19/19 11:57 Dose: 10 mg Documented by: Magnesium Oxide (Mag-Ox 400) 400 mg PO BID [facility] Last Admin: 06/19/19 22:01 Dose: 400 mg Documented by: Melatonin (Melatonin) 3 mg PO QHS PRN PRN Reason: INSOMNIA Last Admin: 06/19/19 22:06 Dose: 3 mg Documented by: Metoprolol Tartrate (Lopressor (Beta Lucina)) 12.5 mg PO BID [facility] Last Admin: 06/19/19 22:01 Dose: 12.5 mg Documented by: Sodium Chloride () 10 - 40 ml IV UD PRN PRN Reason: SALINE FLUSH Last Admin: 06/20/19 03:31 Dose: 20 ml Documented by: Discharge Diet: Low fat/ Low Cholesterol, - - 1500 cc/day Discharge Activity: Return to Normal Activity Home Medications: Medications to take at Discharge Acetaminophen 1,000 mg PO TID 06/16/19 Albuterol Sulfate 2.5 mg IH BID 06/16/19 Albuterol Sulfate 2.5 mg IH Q4H PRN PRN 06/16/19 Alendronate Sodium 70 mg PO ELIZONDO 06/16/19 Apixaban [Eliquis] 5 mg PO BID 06/16/19 Doxycycline 100 mg PO BID 06/16/19 Famotidine 20 mg PO DAILY 06/16/19 Flecainide Acetate 50 mg PO BID 06/16/19 Fluticasone/Salmeterol [Airduo Respiclick 113-14 Mcg] 1 puff IH BID 06/16/19 Insulin Glargine,Hum.rec.anlog [Basaglar Kwikpen U-100] 15 unit SQ QHS 06/16/19 Insulin Lispro [Humalog KwikPen] 100 unit SQ 0730,1630 06/16/19 Ipratropium/Albuterol Sulfate [Duoneb] 3 ml INHALATION Q6H PRN PRN 06/16/19 Lisinopril [Zestril] 10 mg PO DAILY 06/16/19 Magnesium Oxide [Magnesium] 400 mg PO BID 06/16/19 Metoprolol Tartrate 25 mg PO BID 06/16/19 Simvastatin 40 mg PO QHS 06/16/19 traZODone [Desyrel] 50 mg PO QHS 06/16/19 Furosemide 40 mg PO DAILY #1 tablet 06/20/19 Following Prescrptions Were Given to Patient: Furosemide 40 mg PO DAILY #1 tablet Primary Care Physician: Luis Adhikari MD [NON-STAFF] - Within 2 Weeks Disposition: Custodial facility Minutes spent on discharge:: 34 Patient Condition:: Fair Medical Necessity - Tobacco Use Smoking Status: Former smoker Tobacco Use: Cigarettes Meaningful Use Info Meaningful Use Diagnoses (Choose all that apply): None applicable Code Visit Inpatient E&M: 83836 Disch Hosp
--- NOTE | 2019-06-20 11:02 | CASEMGMT ---
Patient is ready for discharge to TCU. SW notified Ninfa in TCU, RN, and patient's daughter. Patient's daughter said she would notify her sister Iman. Plan: d/c to [facility] TCU under skilled level of care. Kasey MERCEDES MSW
[2019-06-20] MEDS: predniSONE 20 MG Tablet PO (11:07)
[2019-06-20] MEDS: Doxycycline 100 MG CAPSULE PO (11:07)
[2019-06-20] MEDS: Menthol/Lanolin/Calamine/Znox 113 GM Tube 1 APPLIC TOPICAL (11:07)
[2019-06-20] MEDS: APIXABAN 5 MG TABLET PO (11:08)
[2019-06-20] MEDS: Metoprolol Tartrate 25 MG Tablet 12.5 MG PO (11:08)
[2019-06-20] MEDS: Flecainide 100 MG Tablet 50 MG PO (11:09)
[2019-06-20] MEDS: Famotidine 20 MG Tablet PO (11:09)
[2019-06-20] MEDS: Magnesium Oxide 400 MG Tablet PO (11:09)
[2019-06-20] MEDS: Lisinopril 10 MG Tablet PO (11:10)
[2019-06-20] MEDS: Furosemide 40 MG/4 ML Vial IV (11:12)
[2019-06-20] MEDS: Insulin Lispro 100 UNIT/ML INSULN.PEN SC ×2 (12:38→16:31)
[2019-06-20 12:45] LABS: Bedside Glucose 161 mg/dL (70-110)
[2019-06-20 16:40] LABS: Bedside Glucose 179 mg/dL (70-110)
[2019-06-25 08:11] LABS: Bedside Glucose 211 mg/dL (70-110)
== END 2019-06-20 16:58 | disposition skilled nursing facility (03) | DRG 640 ==
LOC: ED 12:48 → ICU 16:08 → PCU 06-19 10:32
PROVIDERS: Internal Medicine Critical Care Medicine; Emergency Provider Emergency Medicine; PCP Family Medicine
DX: E87.5 Hyperkalemia (principal); J96.00 Acute respiratory failure, unspecified whether with hypoxia or hypercapnia; R57.0 Cardiogenic shock; Z68.41 Body mass index [BMI] 40.0-44.9, adult; L03.115 Cellulitis of right lower limb; N18.4 Chronic kidney disease, stage 4 (severe); N17.9 Acute kidney failure, unspecified; E87.2 Acidosis; I48.91 Unspecified atrial fibrillation; E66.01 Morbid (severe) obesity due to excess calories; I12.9 Hypertensive chronic kidney disease with stage 1 through stage 4 chronic kidney disease, or unspecified chronic kidney disease; D64.9 Anemia, unspecified; E11.22 Type 2 diabetes mellitus with diabetic chronic kidney disease; Z87.891 Personal history of nicotine dependence; Z79.4 Long term (current) use of insulin; Z79.01 Long term (current) use of anticoagulants
CPT/HCPCS: 31500; 31720; 36556; 36600; 51702; 71045; 80048; 80053; 82607; 82728; 82746; 82803; 82962; 83540; 83550; 83605; 83735; 84132; 84484; 85025; 85610; 85730; 87070; 87205; 93005; 94002; 94003; 94660; 97110; 97162; 97163; 97166; 97530; 97802; 97803; 99251; 99285; J7030; J7050; A4216; G0463; J1940

== ENCOUNTER 2019-06-20 17:05 | Inpatient (IN) | payer MEDICARE, OTHER, BC, SELFPAY ==
[2019-06-16 14:14] VITALS: BMI 40.6
[2019-06-20 17:17] VITALS: BP 133/54; PULSE 101; RESP 20; TEMP 36.8; O2SAT 99
--- NOTE | 2019-06-20 18:01 | HP.PCM_ITS ---
Problem List (1) Debility Status: Acute (2) Unresponsiveness Status: Acute (3) Hyperkalemia Status: Acute (4) Diabetes mellitus type II, controlled Status: Chronic (5) Atrial fibrillation Status: Chronic (6) Cardiogenic shock Status: Acute (7) Methicillin resistant Staph aureus culture positive Status: Chronic (8) Cellulitis of right ankle Status: Chronic (9) Chronic obstructive pulmonary disease Status: Chronic (10) Osteoporosis Status: Chronic (11) Anxiety Status: Chronic (12) GERD (gastroesophageal reflux disease) Status: Chronic (13) Edema Status: Chronic (14) Insomnia Status: Chronic (15) Acute respiratory failure Status: Acute (16) Acute kidney injury Status: Acute (17) Hypertension Status: Chronic (18) Hyperlipidemia Status: Acute (19) Sick sinus syndrome Status: Chronic (20) Anemia, unspecified Status: Chronic History of Present Illness Date of Admission: 06/20/19 Chief Complaint: Here for rehabilitation, strengthening, prior to discharge home alone. The patient is a 78 year old Female with below past medical history presented to [facility] Emergency Department 06/16/19 with abnormal labs. Patient lives in [place], [place]. 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 She was admitted to [facility], then afterwards admitted to [facility] for rehabilitation. 06/16/19 EKG wide QRS rhythm, right axis deviation, non-specific intra- ventricular conduction block. 06/16/19 Chest X-ray right central line, endotracheal tube, small bilateral effusions with increased markings at left base. [facility] home resident. Potassium 7.2, confused, mottled, ashen. Came from correction, became unresponsive en route. 1 amp calcium chloride, 1 amp bicarb recommended but not given en route due to lack of IV access. Calcium chloride, Bicarb, insulin given via right proximal humerus IO access. INR 3.6, Lactate 4.5, K 7.5, Cr 2.49. Intubated, right subclavian central line placed. 06/16/2019 Admit to ICU. MRSA foot infection on doxycycline. Recheck potassium for hyperkalemia, may need kayexalate. Intubated, Ventilated. Hold diuretics, give IV fluids for acute kidney injury. Eliquis held for INR 3.6. Continue Doxycycline for MRSA cellulitis right ankle. 06/16/19 Dr. Cruz recommended propofol, fentanyl for sedation. Continue prednisone. Hold Lisinopril, consider consulting cardiology. Spontaneous awakening, breathing trials. 06/17/2019 Hyperkalemia improving with calcium chloride, sodium bicarb, kayexalate. Right subclavian triple lumen catheter adjusted. 06/18/2019 Chest X-ray showed left pleural effusion improved with stable bibasilar atelectasis/infiltrate. 06/18/2019 Spontaneous breathing trial. Lasix for edema. Sliding scale insulin for Type 2 Diabetes Mellitus. Patient extubated. 06/19/2019 Hyperkalemia resolved, Aldactone held, Potassium held. 06/20/2019 Admit to TCU with debility, here for rehabilitation, strengthening, prior to discharge home alone. Past Medical History Past Medical History (Chronic Problems): Chronic Problems (Last Updated 06/16/19 @ 15:29 by Andrews Martinez DO) Diabetes mellitus type II, controlled (Chronic) Atrial fibrillation (Chronic) Methicillin resistant Staph aureus culture positive (Chronic) Cellulitis of right ankle (Chronic) Chronic obstructive pulmonary disease (Chronic) Osteoporosis (Chronic) Anxiety (Chronic) GERD (gastroesophageal reflux disease) (Chronic) Edema (Chronic) Insomnia (Chronic) Hypertension (Chronic) Paroxysmal atrial fibrillation (Chronic) Sick sinus syndrome (Chronic) Anticoagulant long-term use (Chronic) Anemia, unspecified (Chronic) Renal failure (ARF), acute on chronic (Chronic) Atrial fibrillation by electrocardiogram (Chronic) Medical History: Medical History (Last Updated 06/16/19 @ 15:29 by Andrews Martinez DO) Anemia D64.9 DM2 (diabetes mellitus, type 2) E11.9 GERD (gastroesophageal reflux disease) K21.9 CKD (chronic kidney disease) N18.9 COPD (chronic obstructive pulmonary disease) J44.9 HTN (hypertension) I10 Allergies Penicillins [PCN] Allergy (Verified 06/16/19 11:51) Other shellfish derived Allergy (Verified 06/16/19 11:53) Other Home Medications: Ambulatory Orders Medication Instructions Recorded Acetaminophen 1,000 mg PO TID 06/16/19 Albuterol Sulfate 2.5 mg IH BID 06/16/19 Albuterol Sulfate 2.5 mg IH Q4H PRN PRN 06/16/19 Alendronate Sodium 70 mg PO ELIZONDO 06/16/19 Apixaban [Eliquis] 5 mg PO BID 06/16/19 Doxycycline 100 mg PO BID 06/16/19 Famotidine 20 mg PO DAILY 06/16/19 Flecainide Acetate 50 mg PO BID 06/16/19 Fluticasone/Salmeterol [Airduo 1 puff IH BID 06/16/19 Respiclick 113-14 Mcg] Insulin Glargine,Hum.rec.anlog 15 unit SQ QHS 06/16/19 [Basaglar Kwikpen U-100] Insulin Lispro [Humalog KwikPen] 100 unit SQ 0730,1630 06/16/19 Ipratropium/Albuterol Sulfate 3 ml INHALATION Q6H PRN PRN 06/16/19 [Duoneb] Lisinopril [Zestril] 10 mg PO DAILY 06/16/19 Magnesium Oxide [Magnesium] 400 mg PO BID 06/16/19 Metoprolol Tartrate 25 mg PO BID 06/16/19 Simvastatin 40 mg PO QHS 06/16/19 traZODone [Desyrel] 50 mg PO QHS 06/16/19 Furosemide 40 mg PO DAILY 06/20/19 Surgical History: noncontributory Psychiatric 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 ORTHOTIC/PROSTHETIC CLINICIAN History: No pertinent ORTHOTIC/PROSTHETIC CLINICIAN history Lives: [facility] Smoking Status: Former smoker Tobacco Use: Cigarettes Alcohol: None Drugs: None - *Family History Maternal History Items: No pertinent history Paternal History Items: No pertinent history Review of Systems Constitutional: Denies: Chills, Fever, Weight Change HEENT: Denies: Head Aches, Sinus Congestion, Sinus Drainage Cardiovascular: Denies: Chest Pain, Palpitations Respiratory: Denies: Cough, Shortness of breath at rest, Sputum production Gastrointestinal: Denies: Abdominal Pain, Nausea, Vomiting Genitourinary: Denies: Dysuria Musculoskeletal: Denies: Joint Pain, Joint Tenderness Skin: Denies: Rash, Wounds Neurological: Denies: Numbness, Tingling, Focal weakness Psychiatric: Denies: Anxiety, Depression, Homicidal Ideations, Suicidal Ideations Hematologic/ Lymphatic: Denies: Easy Bruising, Easy Bleeding VTE Information - Inpt Only VTE Present on Admission: No VTE Mechan Device Prophylaxis: Knee High THOMAS Hose VTE Pharm Prophylaxis ordered?: No Reason prophylaxis not ordered:: Treatment Not Indicated Patient Problems: Active and Suspected Problems (Last Updated 06/16/19 @ 15:29 by Andrews Martinez DO) Debility (Acute) Unresponsiveness (Acute) Hyperkalemia (Acute) Cardiogenic shock (Acute) Acute respiratory failure (Acute) - Physical Exam Vitals/I&O's: Vital Signs Temp Pulse Resp BP Pulse Ox 98.3 F 101 H 20 H 133/54 H 99 06/20/19 17:17 06/20/19 17:17 06/20/19 17:17 06/20/19 17:17 06/20/19 17:17 Oxygen Flow Rate (L/min) 2 Oxygen Delivery Method Nasal Cannula Body Mass Index (BMI) 40.6 Finger Stick Blood Glucose 211 General: Alert, Oriented x3, Cooperative HEENT: Atraumatic, PERRLA, EOMI, Normocephalic Neck: Supple, No JVD, Negative Carotid Bruits Lungs: Clear to auscultation, Normal air movement Cardiovascular: Regular rate, No murmurs Abdomen: Bowel Sounds Present, Soft, Non Tender Extremities: No edema, Capillary Refill Less than 3 Seconds Skin: No rashes, No breakdown Musculoskeletal: No Tenderness to Palpation of Joints or Extremities Neurological: Cranial nerves II-XII grossly intact Psych/Mental Status: Normal Affect, Appropriate Current Medications Acetaminophen (Tylenol) 1,000 mg PO TID NAB[facility] Albuterol Sulfate (Ventolin Aerosols) 2.5 mg INHALATION BID [facility] Albuterol Sulfate (Ventolin Aerosols) 2.5 mg INHALATION Q4H PRN PRN PRN Reason: SOB &/OR WHEEZING Albuterol Sulfate (Ventolin Aerosols) 2.5 mg INHALATION Q6HWA.RT NAB[facility] Albuterol/Ipratropium (Duoneb) 3 ml INHALATION Q6H PRN PRN PRN Reason: WHEEZING Alendronate Sodium (Fosamax) 70 mg PO Elizondo@1000 [facility] Apixaban (Eliquis) 5 mg PO BID [facility] Atorvastatin Calcium (Lipitor) 20 mg PO QHS [facility] Budesonide (Pulmicort Aerosol) 0.5 mg INHALATION Q12H.RT [facility] Doxycycline Monohydrate (Doxycycline) 100 mg PO BID [facility] Stop: 06/23/19 18:00 Famotidine (Pepcid) 20 mg PO DAILY [facility] Flecainide Acetate (Tambocor) 50 mg PO BID [facility] Furosemide (Lasix) 40 mg PO DAILY [facility] Insulin Glargine (Lantus (Bk)) 15 units SC QHS [facility] Insulin Human Lispro (Humalog Kwikpen ([facility])) 100 unit SC 0730,1630 [facility]; Protocol Lisinopril (Zestril) 10 mg PO DAILY [facility] Magnesium Oxide (Mag-Ox 400) 400 mg PO 0800,2000 [facility] Metoprolol Tartrate (Lopressor (Beta Lucina)) 25 mg PO BID [facility] Nutritional Formula (Lactose Free) (Glucerna Shake) 120 ml PO 4X/DAY [facility] Trazodone HCl (Desyrel) 50 mg PO QHS [facility] Tuberculin PPD (Tubersol, Aplisol, Ppd) 5 tu ID X1 ONE Stop: 06/21/19 10:01 Tuberculin PPD (Tubersol, Aplisol, Ppd) 5 tu ID X1 ONE Stop: 06/28/19 10:01 Assessment/Plan All Active Problems (Last Updated 06/16/19 @ 15:29 by Andrews Martinez DO) Debility (Acute) Unresponsiveness (Acute) Hyperkalemia (Acute) Cardiogenic shock (Acute) Acute respiratory failure (Acute) History of respiratory failure with hypo (Acute) Acute kidney injury (Acute) Hyperlipidemia (Acute) Acute hyperkalemia (Acute) 78 year old female with below past medical history hospitalized for hyperkalemia, acute kidney injury, complicated by respiratory failure requiring intubation, admitted to TCU with debility, here for rehabilitation, strengthening, prior to discharge home alone. Resident would like to attend a wedding in [place] August 10, 2019. * Debility - PT/OT. * Pain - Tylenol 1000MG TID. * Bowel - Miralax 17GM daily, Senna/colace 1 tablet BID, Dulcolax 10MG daily PRN. * Adult immunization - Administer Prevnar 13, Pneumovax 23, Fluzone as appropriate. * DVT prophylaxis - Not necessary, already on Eliquis. * COPD - Pulmicort 0.5MG Q12H, Duoneb 3ML [id number], Albuterol 2.5Mg Q2H PRN wheezing. * Osteoporosis - Alendronate 70MG weekly. * Atrial Fibrillation - Metoprolol 25MG BID, Flecainide 50MG BID, Eliquis 5MG BID. * Hyperlipidemia - Atorvastatin 20MG QHS. * Right ankle cellulitis - Doxycycline 100MG BID thru 06/23/2019. * GERD - Famotidine 20MG daily. * Edema - Lasix 40MG daily. * Nutrition - Glucerna 120ML 4x/day. * Diabetes Mellitus II - Glimepiride 2MG QAM, monitor blood sugars. * Hypertension - Lisinopril 10MG daily. * Hypomagnesemia - Magnesium Oxide 400MG twice daily. * Insomnia - Trazodone 50MG QHS.
[2019-06-20 19:23] VITALS: PULSE 83; RESP 20; O2SAT 100
[2019-06-20] MEDS: Budesonide Respules 0.5 MG/2 ML AMPUL.NEB. INHALATION (19:23)
[2019-06-20] MEDS: Albuterol 2.5 MG/3 ML VIAL.NEB. INHALATION (19:23)
[2019-06-20 21:10] LABS: Bedside Glucose 239 mg/dL (70-110)
[2019-06-20] MEDS: Acetaminophen 500 MG Tablet 1000 MG PO (21:18)
[2019-06-20] MEDS: Doxycycline 100 MG CAPSULE PO (21:19)
[2019-06-20] MEDS: traZODone 50 MG Tablet PO (21:19)
[2019-06-20] MEDS: Atorvastatin Calcium 20 MG Tablet PO (21:19)
[2019-06-20 21:20] VITALS: BP 133/69; PULSE 89
[2019-06-20] MEDS: Flecainide 100 MG Tablet 50 MG PO (21:20)
[2019-06-20] MEDS: Metoprolol Tartrate 25 MG Tablet PO (21:20)
[2019-06-20] MEDS: Magnesium Oxide 400 MG Tablet PO (21:21)
[2019-06-20] MEDS: APIXABAN 5 MG TABLET PO (21:21)
[2019-06-20] MEDS: Glucerna Shake 120 ML LIQUID PO (21:24)
[2019-06-20 21:26] VITALS: BMI 47.8
[2019-06-20 21:33] VITALS: BMI 47.9
[2019-06-20 22:16] LABS: Bedside Glucose 209 mg/dL (70-110)
[2019-06-21] VITALS (8 sets, daily range): BP systolic 120–137; BP diastolic 44–55; PULSE 82–101; RESP 15–18; TEMP 37; O2SAT 92–99
[2019-06-21] MEDS: Menthol/Lanolin/Calamine/Znox 113 GM Tube 1 APPLIC TOPICAL ×2 (05:47→21:13)
[2019-06-21] MEDS: Nystatin Powder 15gm Bottle 1 APPLIC TOPICAL ×2 (05:48→21:15)
[2019-06-21] MEDS: Glucerna Shake 120 ML LIQUID PO ×4 (05:49→21:11)
[2019-06-21] MEDS: Polyethylene Glycol 3350 17 GM PACKET PO (05:50)
[2019-06-21] MEDS: Senna/Docusate Sodium 1 Tablet PO (05:52)
[2019-06-21] MEDS: Doxycycline 100 MG CAPSULE PO ×2 (05:52→17:53)
[2019-06-21] MEDS: Furosemide 40 MG Tablet PO (05:53)
[2019-06-21] MEDS: Famotidine 20 MG Tablet PO (05:53)
[2019-06-21] MEDS: Flecainide 100 MG Tablet 50 MG PO ×2 (05:53→17:54)
[2019-06-21] MEDS: Lisinopril 10 MG Tablet PO (05:54)
[2019-06-21] MEDS: Acetaminophen 500 MG Tablet 1000 MG PO ×3 (05:54→21:16)
[2019-06-21] MEDS: APIXABAN 5 MG TABLET PO ×2 (05:55→17:53)
[2019-06-21 06:46] LABS: Bedside Glucose 204 mg/dL (70-110)
[2019-06-21] MEDS: Ipratropium/Albuterol Sulfate 3 ML AMPUL.NEB INHALATION ×2 (07:08→20:50)
[2019-06-21] MEDS: Budesonide Respules 0.5 MG/2 ML AMPUL.NEB. INHALATION ×2 (07:09→20:50)
[2019-06-21 08:25] LABS: Absolute Lymphocyte Count 1.28 X10^3/uL (0.83-4.51); Absolute Neutrophil Count 6.2 X10^3/uL (2.0-7.7); Basophil# 0.03 X10^3/uL; Basophil% 0.4 % (0-1); Eosinophil# 0.08 X10^3/uL; Hematocrit 29.5 % (37-47); Hemoglobin 8.6 g/dL (12.0-15.0); Lymphocyte # 1.28 X10^3/ul (4.0); Lymphocyte % 15.6 % (19-41); Mean Corp Hgb Conc 29.2 g/dL (32-36); Mean Corpuscular Hgb 31.7 pg (27.0-32.0); Mean Corpuscular Volume 108.9 fL (81-99); Monocyte# 0.58 X10^3/uL; Monocyte% 7.1 % (0-10); NRBC Flagged by Analyzer 0 % (0-5); Neutrophil # 6.16 X10^3/uL (2.7-7.7); Neutrophil % 75.3 % (47-70); POSITIVE MORPHOLOGY YES; Platelet Count 212 K/mm3 (150-450); RBC Distribution Width CV 20.6 % (11.6-14.6); RBC Distribution Width SD 83.8 fl (35.1-43.9); Red Blood Count 2.71 M/mm3 (4.2-5.4); White Blood Count 8.2 K/mm3 (4.4-11.0)
[2019-06-21 08:30] LABS: Differential Indicated SCAN CRITERIA MET
[2019-06-21 08:47] LABS: Anion Gap 5 (5-15); BUN 45 mg/dL (7-18); BUN/Creat Ratio 27.4 RATIO (10-20); Calcium,Total 8.8 mg/dL (8.5-10.1); Chloride 105 mmol/L (98-107); Cholesterol 101 mg/dL (200); Creatinine, Serum 1.64 mg/dL (0.55-1.02); EST Glomerular Filtration Rate 32 mL/min (>60); Est Glom Filt Rate - Afr Amer 39 mL/min (>60); Estimated Creatinine Clearance 20.99 ml/min; Glucose 232 mg/dL (74-106); High Density Lipoprotein 41 mg/dL; Potassium 4.4 mmol/L (3.5-5.1); Sodium Level 141 mmol/L (136-145); Triglycerides 100 mg/dL; Very Low Density Lipoprotein 20 mg/dL (5-40)
[2019-06-21 09:00] LABS: Anisocytosis 1+
[2019-06-21] MEDS: Magnesium Oxide 400 MG Tablet PO (09:00)
[2019-06-21] MEDS: Glimepiride 2 MG Tablet PO (09:01)
[2019-06-21] MEDS: Metoprolol Tartrate 25 MG Tablet PO ×2 (09:06→17:55)
[2019-06-21] MEDS: Iron Polysaccharide Complex 150 MG CAPSULE PO (11:17)
[2019-06-21] MEDS: Tuberculin,Purif.prot.deriv. 50 TU/ML Vial 5 ML ID (11:19)
[2019-06-21 11:30] LABS: Bedside Glucose 213 mg/dL (70-110)
[2019-06-21 15:55] LABS: Bedside Glucose 179 mg/dL (70-110)
[2019-06-21 16:40] LABS: Bedside Glucose 180 mg/dL (70-110)
[2019-06-21] MEDS: Atorvastatin Calcium 20 MG Tablet PO (21:16)
[2019-06-21] MEDS: traZODone 50 MG Tablet PO (21:16)
[2019-06-21 21:35] LABS: Bedside Glucose 200 mg/dL (70-110)
[2019-06-22] VITALS (7 sets, daily range): BP systolic 151–153; BP diastolic 63–87; PULSE 86–112; RESP 18; TEMP 36.1; O2SAT 92–100
[2019-06-22] MEDS: Nystatin Powder 15gm Bottle 1 APPLIC TOPICAL ×2 (04:26→22:03)
[2019-06-22] MEDS: Menthol/Lanolin/Calamine/Znox 113 GM Tube 1 APPLIC TOPICAL ×2 (04:27→22:03)
[2019-06-22] MEDS: Famotidine 20 MG Tablet PO (04:30)
[2019-06-22] MEDS: Lisinopril 10 MG Tablet PO (04:30)
[2019-06-22] MEDS: Metoprolol Tartrate 25 MG Tablet PO ×2 (04:30→17:34)
[2019-06-22] MEDS: Acetaminophen 500 MG Tablet 1000 MG PO ×3 (04:31→22:05)
[2019-06-22] MEDS: Flecainide 100 MG Tablet 50 MG PO ×2 (04:31→17:35)
[2019-06-22] MEDS: Furosemide 40 MG Tablet PO (04:31)
[2019-06-22] MEDS: Doxycycline 100 MG CAPSULE PO ×2 (04:31→17:33)
[2019-06-22] MEDS: APIXABAN 5 MG TABLET PO ×2 (04:31→17:33)
[2019-06-22 06:26] LABS: Bedside Glucose 199 mg/dL (70-110)
[2019-06-22] MEDS: Ipratropium/Albuterol Sulfate 3 ML AMPUL.NEB INHALATION ×3 (06:54→18:48)
[2019-06-22] MEDS: Budesonide Respules 0.5 MG/2 ML AMPUL.NEB. INHALATION ×2 (06:54→18:48)
[2019-06-22] MEDS: Iron Polysaccharide Complex 150 MG CAPSULE PO (08:52)
[2019-06-22] MEDS: Magnesium Oxide 400 MG Tablet PO ×2 (08:52→19:55)
[2019-06-22] MEDS: Glimepiride 2 MG Tablet PO (08:54)
[2019-06-22] MEDS: Alendronate Sodium 70 MG Tablet PO (08:54)
[2019-06-22 11:36] LABS: Bedside Glucose 214 mg/dL (70-110)
[2019-06-22 16:41] LABS: Bedside Glucose 268 mg/dL (70-110)
[2019-06-22 20:46] LABS: Bedside Glucose 262 mg/dL (70-110)
[2019-06-22] MEDS: traZODone 50 MG Tablet PO (22:05)
[2019-06-22] MEDS: Atorvastatin Calcium 20 MG Tablet PO (22:05)
[2019-06-23] MEDS: APIXABAN 5 MG TABLET PO ×2 (05:18→18:04)
[2019-06-23 05:19] VITALS: BP 151/76; PULSE 110
[2019-06-23] MEDS: Furosemide 40 MG Tablet PO (05:19)
[2019-06-23] MEDS: Metoprolol Tartrate 25 MG Tablet PO ×2 (05:19→18:04)
[2019-06-23] MEDS: Flecainide 100 MG Tablet 50 MG PO ×2 (05:20→18:04)
[2019-06-23] MEDS: Doxycycline 100 MG CAPSULE PO ×2 (05:20→18:04)
[2019-06-23] MEDS: Lisinopril 10 MG Tablet PO (05:20)
[2019-06-23] MEDS: Famotidine 20 MG Tablet PO (05:20)
[2019-06-23] MEDS: Acetaminophen 500 MG Tablet 1000 MG PO ×3 (05:21→21:14)
[2019-06-23] MEDS: Glucerna Shake 120 ML LIQUID PO ×4 (05:22→21:13)
[2019-06-23] MEDS: Menthol/Lanolin/Calamine/Znox 113 GM Tube 1 APPLIC TOPICAL ×2 (05:26→21:17)
[2019-06-23] MEDS: Nystatin Powder 15gm Bottle 1 APPLIC TOPICAL ×2 (05:27→21:17)
[2019-06-23 06:26] LABS: Bedside Glucose 227 mg/dL (70-110)
[2019-06-23 06:37] VITALS: PULSE 104; RESP 18; O2SAT 98
[2019-06-23] MEDS: Budesonide Respules 0.5 MG/2 ML AMPUL.NEB. INHALATION ×2 (06:37→19:45)
[2019-06-23] MEDS: Ipratropium/Albuterol Sulfate 3 ML AMPUL.NEB INHALATION ×2 (06:37→19:45)
[2019-06-23] MEDS: Magnesium Oxide 400 MG Tablet PO (08:06)
[2019-06-23] MEDS: Glimepiride 2 MG Tablet PO (08:06)
[2019-06-23] MEDS: Iron Polysaccharide Complex 150 MG CAPSULE PO (08:06)
[2019-06-23] MEDS: Ondansetron ODT 4 MG Tablet PO (09:57)
[2019-06-23 10:00] VITALS: PULSE 91; RESP 18; O2SAT 99
[2019-06-23 11:25] LABS: Bedside Glucose 237 mg/dL (70-110)
--- NOTE | 2019-06-23 14:39 | CHAPLAIN ---
Type of Pastoral Visit ___ Initial Visit _x__ Follow-up Visit ___ On-call Visit ___ General Patient Visit ___ Spiritual Assessment ___ Family Conference ___ Bereavement ___ Rapid Response ___ Code Blue ___ Other (describe below) Pastoral Care Referral From ___ Patient _x__ Family ___ Nurse ___ Physician ___ Television Receiver Analyzer ___ Carpet Tile Layer ___ Other (describe below) Sacrament/Intervention ___ Active listening ___ Anointing ___ Adventist ___ Bereavement ___ Communion ___ Audra exploration ___ ___ Life review ___ Prayer ___ Reconciliation ___ Sacrament of Sick ___ Supportive presence ___ Wedding _x__ Other (describe below) Pastoral Comments patient was sleeping; offered support to family;
--- NOTE | 2019-06-23 15:09 | NURSING ---
wound photo: right thigh
--- NOTE | 2019-06-23 15:10 | NURSING ---
wound photo: left posterior heel
[2019-06-23 16:00] VITALS: BP 132/90; PULSE 113; RESP 18; TEMP 36.4; O2SAT 96
[2019-06-23 17:16] LABS: Bedside Glucose 209 mg/dL (70-110)
[2019-06-23 18:04] VITALS: PULSE 113
[2019-06-23 19:45] VITALS: PULSE 108; RESP 18; O2SAT 96
[2019-06-23] MEDS: traZODone 50 MG Tablet PO (21:14)
[2019-06-23] MEDS: Atorvastatin Calcium 20 MG Tablet PO (21:14)
[2019-06-23 21:20] LABS: Bedside Glucose 251 mg/dL (70-110)
[2019-06-24] MEDS: Glucerna Shake 120 ML LIQUID PO ×3 (05:56→17:54)
[2019-06-24] MEDS: Menthol/Lanolin/Calamine/Znox 113 GM Tube 1 APPLIC TOPICAL ×2 (05:56→20:31)
[2019-06-24] MEDS: APIXABAN 5 MG TABLET PO ×2 (05:57→17:54)
[2019-06-24 05:58] VITALS: BP 105/50; PULSE 113
[2019-06-24] MEDS: Famotidine 20 MG Tablet PO (05:58)
[2019-06-24] MEDS: Metoprolol Tartrate 25 MG Tablet PO ×2 (05:58→17:54)
[2019-06-24] MEDS: Acetaminophen 500 MG Tablet 1000 MG PO ×3 (05:58→20:33)
[2019-06-24] MEDS: Flecainide 100 MG Tablet 50 MG PO ×2 (05:58→17:54)
[2019-06-24] MEDS: Furosemide 40 MG Tablet PO (05:58)
[2019-06-24] MEDS: Lisinopril 10 MG Tablet PO (05:59)
--- NOTE | 2019-06-24 06:00 | NURSING ---
In to give patient her morning medications this morning. Per report patient and family has been requesting crackers or some other food before giving patient's 6 am medications. This nurse offered crackers, pudding, and yogurt. Patient refused to have anything to eat before medications.
[2019-06-24] MEDS: Nystatin Powder 15gm Bottle 1 APPLIC TOPICAL ×2 (06:01→20:32)
[2019-06-24 06:35] LABS: Bedside Glucose 135 mg/dL (70-110)
[2019-06-24 06:44] VITALS: PULSE 115; RESP 20; O2SAT 94
[2019-06-24] MEDS: Budesonide Respules 0.5 MG/2 ML AMPUL.NEB. INHALATION ×2 (06:44→20:25)
[2019-06-24] MEDS: Ipratropium/Albuterol Sulfate 3 ML AMPUL.NEB INHALATION ×2 (06:44→20:25)
--- NOTE | 2019-06-24 07:49 | PCM.PN.RX ---
<Jorden Henry C - Last Filed: 06/24/19 07:49> Progress Note - Pharmacy Subjective: [] TCU Admission Objective: Allergies Penicillins [PCN] Allergy (Verified 06/16/19 11:51) Other shellfish derived Allergy (Verified 06/16/19 11:53) Other Current Medications Generic Name Dose Route Start Last Admin Trade Name Freq PRN Reason Stop Dose Admin Acetaminophen 1,000 mg 06/20/19 22:00 06/24/19 05:58 Tylenol PO 1,000 mg TID NABIL Administration Albuterol Sulfate 2.5 mg 06/20/19 18:54 Ventolin Aerosols INHALATION Q2H PRN PRN WHEEZING Albuterol/Ipratropium 3 ml 06/24/19 06:00 06/24/19 06:44 Duoneb INHALATION 3 ml BID.RT NABIL Administration Alendronate Sodium 70 mg 06/22/19 10:00 06/22/19 08:54 Fosamax PO 70 mg Corral@1000 NABIL Administration Apixaban 5 mg 06/20/19 18:00 06/24/19 05:57 Eliquis PO 5 mg BID NABIL Administration Atorvastatin Calcium 20 mg 06/20/19 22:00 06/23/19 21:14 Lipitor PO 20 mg QHS NABIL Administration Bisacodyl 10 mg 06/20/19 18:55 Dulcolax PO DAILY PRN Constipation Budesonide 0.5 mg 06/20/19 18:00 06/24/19 06:44 Pulmicort Aerosol INHALATION 0.5 mg Q12H.RT NABIL Administration Calamine/Phenol 1 applic 06/21/19 06:00 06/24/19 05:56 Calmoseptine Ointment TOPICAL 1 applicatio 0600,2200 [facility] Administration Protocol Famotidine 20 mg 06/21/19 06:00 06/24/19 05:58 Pepcid PO 20 mg DAILY NABIL Administration Flecainide Acetate 50 mg 06/20/19 18:00 06/24/19 05:58 Tambocor PO 50 mg BID NABIL Administration Furosemide 40 mg 06/21/19 06:00 06/24/19 05:58 Lasix PO 40 mg DAILY NABIL Administration Glimepiride 2 mg 06/21/19 08:00 06/23/19 08:06 Amaryl PO 2 mg DAILY@0800 NABIL Administration Insulin Glargine 10 units 06/23/19 22:00 06/23/19 21:18 Lantus (Bkc) SC 10 u QHS [facility] Administration Lisinopril 10 mg 06/21/19 06:00 06/24/19 05:59 Zestril PO 10 mg DAILY NABIL Administration Metoprolol Tartrate 25 mg 06/20/19 18:00 06/24/19 05:58 Lopressor (Beta Lucina) PO 25 mg BID [facility] Administration Multi-Ingredient Cream 1 applic 06/21/19 22:00 06/23/19 21:17 Eucerin TOPICAL 1 applicatio 2199 [facility] Administration Protocol Nutritional Formula (Lactose Free) 120 ml 06/20/19 22:00 06/24/19 05:56 Glucerna Shake PO 120 ml 4X/DAY [facility] Administration Nystatin 1 applic 06/21/19 06:00 06/24/19 06:01 Mycostatin Powder TOPICAL 1 applicatio 599,2199 [facility] Administration Protocol Ondansetron HCl 4 mg 06/23/19 09:35 06/23/19 09:57 Zofran Odt PO 4 mg Q6H PRN PRN Administration NAUSEA Polyethylene Glycol 17 gm 06/21/19 06:00 06/24/19 05:59 Miralax PO Not Given DAILY [facility] Polysaccharide Iron Complex 150 mg 06/21/19 09:30 06/23/19 08:06 Ferrex 150 PO 150 mg DAILYCM [facility] Administration Senna/Docusate Sodium 1 tablet 06/21/19 06:00 06/24/19 05:59 Senokot-S, Rachel-Colace PO Not Given BID [facility] Trazodone HCl 50 mg 06/20/19 22:00 06/23/19 21:14 Desyrel PO 50 mg QHS [facility] Administration Tuberculin PPD 5 tu 06/28/19 10:00 Tubersol, Aplisol, Ppd ID 06/28/19 10:01 X1 ONE Problem List (Last Updated 06/16/19 @ 15:29 by Andrews Martinez DO) Debility (Acute) Unresponsiveness (Acute) Hyperkalemia (Acute) Diabetes mellitus type II, controlled (Chronic) Atrial fibrillation (Chronic) Cardiogenic shock (Acute) Methicillin resistant Staph aureus culture positive (Chronic) Cellulitis of right ankle (Chronic) Chronic obstructive pulmonary disease (Chronic) Osteoporosis (Chronic) Anxiety (Chronic) GERD (gastroesophageal reflux disease) (Chronic) Edema (Chronic) Insomnia (Chronic) Acute respiratory failure (Acute) Vital Signs Temp Pulse Resp BP Pulse Ox 97.5 F L 115 H 20 H 105/50 L 94 06/23/19 16:00 06/24/19 06:44 06/24/19 06:44 06/24/19 05:58 06/24/19 06:44 Oxygen Flow Rate (L/min) 0.5 Oxygen Delivery Method Room Air Weight: 115 kg Body Mass Index (BMI) 47.8 Finger Stick Blood Glucose 211 Sodium 141 mmol/L (136-145) 06/21/19 08:00 Potassium 4.4 mmol/L (3.5-5.1) 06/21/19 08:00 Chloride 105 mmol/L (98-107) 06/21/19 08:00 Carbon Dioxide 31.0 mmol/L (21.0-32.0) 06/21/19 08:00 Anion Gap 5 (5-15) 06/21/19 08:00 BUN 45 mg/dL (7-18) H 06/21/19 08:00 Creatinine 1.64 mg/dL (0.55-1.02) H 06/21/19 08:00 Est GFR (MDRD) Af Amer 39 mL/min (>60) L 06/21/19 08:00 Est GFR (MDRD) Non-Af 32 mL/min (>60) L 06/21/19 08:00 BUN/Creatinine Ratio 27.4 RATIO (10-20) H 06/21/19 08:00 Glucose 232 mg/dL (74-106) H 06/21/19 08:00 Assessment/Plan: 1) Pain: Acetaminophen 1000mg po tid. Please continue to monitor for signs/symptoms of increased/decreased pain. 2) Hyperlipidemia: Atorvastatin 20mg po qhs. Pts LFTs and Lipid Panel are within normal limits. Please continue to monitor. 3) GERD: Famotidine 20mg po daily. Please continue to monitor for signs/symptoms of GERD 4) Edema: Lasix 40mg po daily. Pt's Na is 141, K+ is 4.4. Please continue to monitor labs 5) Osteoporosis: Alendronate 70mg po weekly. Alendronate should be taken first thing in the morning, on an empty stomach, with a full glass of water. Pt should remain upright for at least 30 minutes after taking dose. Pt should not eat, drink, or take any other medications for 30 minutes before or after dose. 6) Hypertension, AFIB: Lisinopril 10mg po daily, Metoprolol 25mg po bid, Flecainide 50mg bid, Eliquis 5mg po bid. Pt's K+ is 4.4, SrCr is 1.64. Please continue to monitor. Pt's BUN is elevated at 45. Please continue to monitor. Pts average BP is 136.7/63.4. Please continue to monitor. Pt's pulse rate is high and rhythm is irregular. Please continue to monitor. 7) Diabetes: Glimeperide 2mg po daily at 0800, Lantus 10units at bedtime. Please continue to monitor pt's blood glucose levels. Psychotropic Medications: Trazodone 50mg po qhs for insomnia. Medication will require a GDR by 08/2019 unless clinically contraindicated Unnecessary Medications: Bowel Regimen: Bisacodyl 10mg po daily prn for constipation, Miralax 17gm po daily, Senna/Docusate 1 tablet po bid. Pt has refused 3 out of 4 Miralax doses and 6 out of 7 Senna/Docusate doses. Please continue to monitor. If pt keeps refusing, please consider changing to prn usage. thanks Date of Note:: 06/24/19 - Provider Comments Provider responsibility: Provider responsible to enter orders to implement recommendations <Fam Nieves Chi - Last Filed: 06/24/19 16:31> Progress Note - Pharmacy Subjective: [] Objective: Allergies Penicillins [PCN] Allergy (Verified 06/16/19 11:51) Other shellfish derived Allergy (Verified 06/16/19 11:53) Other Current Medications Generic Name Dose Route Start Last Admin Trade Name Freq PRN Reason Stop Dose Admin Acetaminophen 1,000 mg 06/20/19 22:00 06/24/19 13:20 Tylenol PO 1,000 mg TID NABIL Administration Albuterol Sulfate 2.5 mg 06/20/19 18:54 Ventolin Aerosols INHALATION Q2H PRN PRN WHEEZING Albuterol/Ipratropium 3 ml 06/24/19 06:00 06/24/19 06:44 Duoneb INHALATION 3 ml BID.RT NABIL Administration Alendronate Sodium 70 mg 06/22/19 10:00 06/22/19 08:54 Fosamax PO 70 mg Corral@1000 NABIL Administration Apixaban 5 mg 06/20/19 18:00 06/24/19 05:57 Eliquis PO 5 mg BID NABIL Administration Atorvastatin Calcium 20 mg 06/20/19 22:00 06/23/19 21:14 Lipitor PO 20 mg QHS NABIL Administration Bisacodyl 10 mg 06/20/19 18:55 Dulcolax PO DAILY PRN Constipation Budesonide 0.5 mg 06/20/19 18:00 06/24/19 06:44 Pulmicort Aerosol INHALATION 0.5 mg Q12H.RT NABIL Administration Calamine/Phenol 1 applic 06/21/19 06:00 06/24/19 05:56 Calmoseptine Ointment TOPICAL 1 applicatio 0600,0 [facility] Administration Protocol Famotidine 20 mg 06/21/19 06:00 06/24/19 05:58 Pepcid PO 20 mg DAILY NABIL Administration Flecainide Acetate 50 mg 06/20/19 18:00 06/24/19 05:58 Tambocor PO 50 mg BID NABIL Administration Furosemide 40 mg 06/21/19 06:00 06/24/19 05:58 Lasix PO 40 mg DAILY NABIL Administration Glimepiride 2 mg 06/21/19 08:00 06/24/19 09:04 Amaryl PO 2 mg DAILY@0800 NABIL Administration Insulin Glargine 10 units 06/23/19 22:00 06/23/19 21:18 Lantus (Bkc) SC 10 u QHS NABIL Administration Lisinopril 10 mg 06/21/19 06:00 06/24/19 05:59 Zestril PO 10 mg DAILY NABIL Administration Metoprolol Tartrate 25 mg 06/20/19 18:00 06/24/19 05:58 Lopressor (Beta Lucina) PO 25 mg BID NABIL Administration Multi-Ingredient Cream 1 applic 06/21/19 22:00 06/23/19 21:17 Eucerin TOPICAL 1 applicatio 2200 NABIL Administration Protocol Nutritional Formula (Lactose Free) 120 ml 06/20/19 22:00 06/24/19 11:06 Glucerna Shake PO 120 ml 4X/DAY NABIL Administration Nystatin 1 applic 06/21/19 06:00 06/24/19 06:01 Mycostatin Powder TOPICAL 1 applicatio 0600,2200 NABIL Administration Protocol Ondansetron HCl 4 mg 06/23/19 09:35 06/23/19 09:57 Zofran Odt PO 4 mg Q6H PRN PRN Administration NAUSEA Polyethylene Glycol 17 gm 06/21/19 06:00 06/24/19 05:59 Miralax PO Not Given DAILY NABIL Polysaccharide Iron Complex 150 mg 06/21/19 09:30 06/24/19 09:05 Ferrex 150 PO 150 mg DAILYCM NABIL Administration Senna/Docusate Sodium 1 tablet 06/21/19 06:00 06/24/19 05:59 Senokot-S, Rachel-Colace PO Not Given BID NABIL Trazodone HCl 50 mg 06/20/19 22:00 06/23/19 21:14 Desyrel PO 50 mg QHS NABIL Administration Tuberculin PPD 5 tu 06/28/19 10:00 Tubersol, Aplisol, Ppd ID 06/28/19 10:01 X1 ONE Problem List (Last Updated 06/16/19 @ 15:29 by Andrews Martinez DO) Debility (Acute) Unresponsiveness (Acute) Hyperkalemia (Acute) Diabetes mellitus type II, controlled (Chronic) Atrial fibrillation (Chronic) Cardiogenic shock (Acute) Methicillin resistant Staph aureus culture positive (Chronic) Cellulitis of right ankle (Chronic) Chronic obstructive pulmonary disease (Chronic) Osteoporosis (Chronic) Anxiety (Chronic) GERD (gastroesophageal reflux disease) (Chronic) Edema (Chronic) Insomnia (Chronic) Acute respiratory failure (Acute) Vital Signs Temp Pulse Resp BP Pulse Ox 97.5 F L 115 H 20 H 105/50 L 97 06/23/19 16:00 06/24/19 06:44 06/24/19 06:44 06/24/19 05:58 06/24/19 13:19 Oxygen Flow Rate (L/min) 0.5 Oxygen Delivery Method Room Air Weight: 115 kg Body Mass Index (BMI) 47.8 Finger Stick Blood Glucose 211 Sodium 141 mmol/L (136-145) 06/21/19 08:00 Potassium 4.4 mmol/L (3.5-5.1) 06/21/19 08:00 Chloride 105 mmol/L (98-107) 06/21/19 08:00 Carbon Dioxide 31.0 mmol/L (21.0-32.0) 06/21/19 08:00 Anion Gap 5 (5-15) 06/21/19 08:00 BUN 45 mg/dL (7-18) H 06/21/19 08:00 Creatinine 1.64 mg/dL (0.55-1.02) H 06/21/19 08:00 Est GFR (MDRD) Af Amer 39 mL/min (>60) L 06/21/19 08:00 Est GFR (MDRD) Non-Af 32 mL/min (>60) L 06/21/19 08:00 BUN/Creatinine Ratio 27.4 RATIO (10-20) H 06/21/19 08:00 Glucose 232 mg/dL (74-106) H 06/21/19 08:00 Assessment/Plan: Psychotropic Medications: Unnecessary Medications: Bowel Regimen: - Provider Comments Provider responsibility: Provider responsible to enter orders to implement recommendations Provider Comments to Recommendations by Pharmacy: Agree
[2019-06-24] MEDS: Glimepiride 2 MG Tablet PO (09:04)
[2019-06-24] MEDS: Iron Polysaccharide Complex 150 MG CAPSULE PO (09:05)
[2019-06-24 10:55] LABS: Bedside Glucose 150 mg/dL (70-110)
[2019-06-24 13:19] VITALS: O2SAT 97
[2019-06-24 16:00] VITALS: BP 117/61; PULSE 113; RESP 18; TEMP 35.8; O2SAT 94
[2019-06-24 17:06] LABS: Bedside Glucose 108 mg/dL (70-110)
[2019-06-24 17:54] VITALS: BP 117/61; PULSE 113
[2019-06-24 20:25] VITALS: PULSE 110; RESP 18
[2019-06-24] MEDS: Atorvastatin Calcium 20 MG Tablet PO (20:34)
[2019-06-24] MEDS: traZODone 50 MG Tablet PO (20:34)
[2019-06-24 20:56] LABS: Bedside Glucose 169 mg/dL (70-110)
[2019-06-25] MEDS: Menthol/Lanolin/Calamine/Znox 113 GM Tube 1 APPLIC TOPICAL ×2 (05:42→21:06)
[2019-06-25] MEDS: Nystatin Powder 15gm Bottle 1 APPLIC TOPICAL ×2 (05:42→21:09)
[2019-06-25] MEDS: Acetaminophen 500 MG Tablet 1000 MG PO ×3 (05:42→21:08)
[2019-06-25] MEDS: Furosemide 40 MG Tablet PO (05:43)
[2019-06-25] MEDS: APIXABAN 5 MG TABLET PO ×2 (05:43→18:47)
[2019-06-25] MEDS: Flecainide 100 MG Tablet 50 MG PO ×2 (05:43→18:47)
[2019-06-25 05:44] VITALS: BP 125/60; PULSE 108
[2019-06-25] MEDS: Lisinopril 10 MG Tablet PO (05:44)
[2019-06-25] MEDS: Famotidine 20 MG Tablet PO (05:44)
[2019-06-25] MEDS: Metoprolol Tartrate 25 MG Tablet PO ×2 (05:44→18:47)
[2019-06-25 06:25] LABS: Bedside Glucose 103 mg/dL (70-110)
[2019-06-25 06:48] VITALS: PULSE 105; RESP 18; O2SAT 93
[2019-06-25] MEDS: Budesonide Respules 0.5 MG/2 ML AMPUL.NEB. INHALATION ×2 (06:48→19:53)
[2019-06-25] MEDS: Ipratropium/Albuterol Sulfate 3 ML AMPUL.NEB INHALATION ×2 (06:48→19:53)
[2019-06-25] MEDS: Iron Polysaccharide Complex 150 MG CAPSULE PO (08:45)
[2019-06-25] MEDS: Glimepiride 2 MG Tablet PO (08:45)
--- NOTE | 2019-06-25 10:32 | CASEMGMT ---
Social Work IDT met with patient and daughter for care plan meeting. Discussed patient's progress in therapy. Pt is using SerraLift x2-3 for transfers, walking 2ft in // x2, mod assist for UE dressing, dependent for LE ADLs. ST has pt on regular, thin diet and continuing to monitor for no signs of aspiration. Pt on low potassium, fluid restriction for edema, pt taking glucerna shake for wounds. Pt notes poor appetite - agreeable to medication. Pt at [facility] prior which would be pt alternative DC plan, but goal is for pt to return home. Explained Medicare coverage. Will continue to follow. DASHA Cardona SUPERVISOR PIPELINES
[2019-06-25 11:16] LABS: Bedside Glucose 128 mg/dL (70-110)
[2019-06-25] MEDS: Glucerna Shake 120 ML LIQUID PO ×2 (13:08→18:47)
[2019-06-25 16:00] VITALS: BP 128/68; PULSE 69; RESP 18; TEMP 36.6; O2SAT 69
[2019-06-25 16:50] LABS: Bedside Glucose 153 mg/dL (70-110)
[2019-06-25 18:47] VITALS: BP 128/68; PULSE 69
[2019-06-25] MEDS: Pantoprazole Sodium 40 MG Tablet PO (18:47)
[2019-06-25 19:53] VITALS: PULSE 72; RESP 18
[2019-06-25] MEDS: traZODone 50 MG Tablet PO (21:07)
[2019-06-25] MEDS: Atorvastatin Calcium 20 MG Tablet PO (21:08)
[2019-06-25] MEDS: Mirtazapine 15 MG Tablet 7.5 MG PO (21:20)
[2019-06-25 21:40] LABS: Bedside Glucose 182 mg/dL (70-110)
[2019-06-26] MEDS: Furosemide 40 MG Tablet PO (06:17)
[2019-06-26] MEDS: APIXABAN 5 MG TABLET PO ×2 (06:17→17:40)
[2019-06-26] MEDS: Acetaminophen 500 MG Tablet 1000 MG PO ×3 (06:17→21:09)
[2019-06-26] MEDS: Nystatin Powder 15gm Bottle 1 APPLIC TOPICAL ×2 (06:17→21:15)
[2019-06-26] MEDS: Glucerna Shake 120 ML LIQUID PO ×2 (06:18→17:39)
[2019-06-26 06:21] VITALS: BP 113/53; PULSE 90
[2019-06-26] MEDS: Metoprolol Tartrate 25 MG Tablet PO ×2 (06:21→17:41)
[2019-06-26] MEDS: Menthol/Lanolin/Calamine/Znox 113 GM Tube 1 APPLIC TOPICAL ×2 (06:21→21:14)
[2019-06-26] MEDS: Pantoprazole Sodium 40 MG Tablet PO (06:22)
[2019-06-26] MEDS: Flecainide 100 MG Tablet 50 MG PO ×2 (06:23→17:40)
[2019-06-26] MEDS: Lisinopril 10 MG Tablet PO (06:25)
[2019-06-26 06:36] LABS: Bedside Glucose 90 mg/dL (70-110)
[2019-06-26 07:22] VITALS: PULSE 102; RESP 18; O2SAT 96
[2019-06-26] MEDS: Ipratropium/Albuterol Sulfate 3 ML AMPUL.NEB INHALATION ×2 (07:22→19:55)
[2019-06-26] MEDS: Glimepiride 2 MG Tablet PO (09:14)
[2019-06-26] MEDS: Iron Polysaccharide Complex 150 MG CAPSULE PO (09:14)
[2019-06-26 11:26] LABS: Bedside Glucose 111 mg/dL (70-110)
[2019-06-26 15:25] VITALS: BP 116/91; PULSE 102; RESP 18; TEMP 36.4; O2SAT 97
[2019-06-26 16:56] LABS: Bedside Glucose 84 mg/dL (70-110)
[2019-06-26] MEDS: Senna/Docusate Sodium 1 Tablet PO (17:40)
[2019-06-26 17:41] VITALS: PULSE 102
[2019-06-26 19:55] VITALS: PULSE 102; RESP 18
[2019-06-26] MEDS: Budesonide Respules 0.5 MG/2 ML AMPUL.NEB. INHALATION (19:55)
[2019-06-26] MEDS: Atorvastatin Calcium 20 MG Tablet PO (21:09)
[2019-06-26] MEDS: traZODone 50 MG Tablet PO (21:09)
[2019-06-26] MEDS: Mirtazapine 15 MG Tablet 7.5 MG PO (21:12)
[2019-06-26 21:26] LABS: Bedside Glucose 126 mg/dL (70-110)
[2019-06-27] MEDS: Menthol/Lanolin/Calamine/Znox 113 GM Tube 1 APPLIC TOPICAL ×2 (06:05→20:39)
[2019-06-27] MEDS: Nystatin Powder 15gm Bottle 1 APPLIC TOPICAL ×2 (06:05→20:41)
[2019-06-27] MEDS: Furosemide 40 MG Tablet PO (06:06)
[2019-06-27] MEDS: Flecainide 100 MG Tablet 50 MG PO ×2 (06:06→17:10)
[2019-06-27] MEDS: APIXABAN 5 MG TABLET PO ×2 (06:06→17:10)
[2019-06-27] MEDS: Lisinopril 10 MG Tablet PO (06:06)
[2019-06-27] MEDS: Acetaminophen 500 MG Tablet 1000 MG PO ×3 (06:06→20:42)
[2019-06-27 06:07] VITALS: BP 132/65; PULSE 110
[2019-06-27] MEDS: Metoprolol Tartrate 25 MG Tablet PO ×2 (06:07→17:11)
[2019-06-27] MEDS: Senna/Docusate Sodium 1 Tablet PO ×2 (06:07→17:12)
[2019-06-27] MEDS: Pantoprazole Sodium 40 MG Tablet PO (06:10)
[2019-06-27 06:31] LABS: Bedside Glucose 109 mg/dL (70-110)
--- NOTE | 2019-06-27 06:44 | NURSING ---
Patient's urine is a dark tammy.. Patient has not been urinating as much as she had been. Patient's bilateral legs are more swollen. Patient's legs are a +4 Pitted edema. Patient face is also very pale in color. Patient is on a 1500 cc fluid restriction. Will update Dr. Nieves.
[2019-06-27 07:16] VITALS: PULSE 99; RESP 18
[2019-06-27] MEDS: Ipratropium/Albuterol Sulfate 3 ML AMPUL.NEB INHALATION ×2 (07:16→20:03)
[2019-06-27] MEDS: Budesonide Respules 0.5 MG/2 ML AMPUL.NEB. INHALATION ×2 (07:16→20:02)
[2019-06-27] MEDS: Iron Polysaccharide Complex 150 MG CAPSULE PO (09:10)
[2019-06-27] MEDS: Glimepiride 2 MG Tablet PO (09:10)
[2019-06-27 09:44] LABS: Absolute Lymphocyte Count 0.98 X10^3/uL (0.83-4.51); Absolute Neutrophil Count 5.2 X10^3/uL (2.0-7.7); Basophil# 0.03 X10^3/uL; Basophil% 0.4 % (0-1); Eosinophil# 0.24 X10^3/uL; Eosinophils% 3.5 % (0-5); Hematocrit 30.6 % (37-47); Hemoglobin 9.2 g/dL (12.0-15.0); Lymphocyte # 0.98 X10^3/ul (4.0); Lymphocyte % 14.1 % (19-41); Mean Corp Hgb Conc 30.1 g/dL (32-36); Mean Corpuscular Hgb 31.9 pg (27.0-32.0); Mean Corpuscular Volume 106.3 fL (81-99); Mean Platelet Vol. 10.8 fl (6.2-12.0); Monocyte# 0.47 X10^3/uL; Monocyte% 6.8 % (0-10); NRBC Flagged by Analyzer 0 % (0-5); Neutrophil # 5.21 X10^3/uL (2.7-7.7); Neutrophil % 74.9 % (47-70); POSITIVE MORPHOLOGY YES; Platelet Count 223 K/mm3 (150-450); RBC Distribution Width SD 79.3 fl (35.1-43.9); Red Blood Count 2.88 M/mm3 (4.2-5.4)
[2019-06-27 09:45] LABS: Differential Indicated SCAN CRITERIA MET
[2019-06-27 09:47] LABS: BUN 27 mg/dL (7-18); Calcium,Total 8.6 mg/dL (8.5-10.1); Chloride 103 mmol/L (98-107); Creatinine, Serum 1.23 mg/dL (0.55-1.02); EST Glomerular Filtration Rate 45 mL/min (>60); Est Glom Filt Rate - Afr Amer 54 mL/min (>60); Estimated Creatinine Clearance 27.99 ml/min; Glucose 120 mg/dL (74-106); Potassium 3.7 mmol/L (3.5-5.1); Sodium Level 140 mmol/L (136-145)
[2019-06-27 09:48] LABS: Anion Gap 4 (5-15)
[2019-06-27 09:59] LABS: Anisocytosis 1+
--- NOTE | 2019-06-27 10:30 | CASEMGMT ---
Social Work Reviewed and agreed with social work documentation on this date. Moira Mcdonald, HONING MACHINE SET UP OPERATOR TOOL SQL SERVER ARCHITECT
[2019-06-27 11:06] LABS: Bedside Glucose 128 mg/dL (70-110)
[2019-06-27 11:12] LABS: Mucous, Urine 0 SEEN /hpf (<or=2+); Squamous Epithelial Cells - UA 0 SEEN /hpf (5-10)
[2019-06-27 11:24] LABS: Color, Urine Yellow (Yellow); Glucose, Dipstick Normal (Normal); Ketone-Dipstick Negative (Negative); Leukocyte Esterase-Dipstick 500 /ul (Negative); Nitrite-Dipstick Negative (Negative); Occult Blood-Urine 250 /ul (Negative); Protein-Dipstick Negative (Negative); Specific Gravity, Urine 1.005 (1.002-1.030); Urine Bilirubin Dipstick Negative (Negative); Urine Clarity Cloudy (Clear); Urine Urobilinogen Normal (Normal); Urine pH 6.5 (5.0 - 8.0)
[2019-06-27 11:40] LABS: Red Blood Cells-Urine 5-10 SEEN /hpf (0-5); White Blood Cells 10-25 SEEN /hpf (0-5)
[2019-06-27 11:41] LABS: Bacteria 1+ /hpf (None Seen)
[2019-06-27] MEDS: Cefdinir 300 MG Capsule PO (15:30)
[2019-06-27 15:40] VITALS: BP 130/56; PULSE 67; RESP 20; TEMP 36.2; O2SAT 95
[2019-06-27 16:45] LABS: Bedside Glucose 135 mg/dL (70-110)
[2019-06-27] MEDS: Glucerna Shake 120 ML LIQUID PO (17:10)
[2019-06-27 17:11] VITALS: BP 130/56; PULSE 67
[2019-06-27 19:58] VITALS: PULSE 79; RESP 18; O2SAT 96
[2019-06-27 20:41] LABS: Bedside Glucose 173 mg/dL (70-110)
[2019-06-27] MEDS: traZODone 50 MG Tablet PO (20:41)
[2019-06-27] MEDS: Mirtazapine 15 MG Tablet 7.5 MG PO (20:42)
[2019-06-27] MEDS: Atorvastatin Calcium 20 MG Tablet PO (20:42)
[2019-06-28] MEDS: Flecainide 100 MG Tablet 50 MG PO ×2 (05:30→17:34)
[2019-06-28 05:31] VITALS: BP 139/42; PULSE 67
[2019-06-28] MEDS: Pantoprazole Sodium 40 MG Tablet PO (05:31)
[2019-06-28] MEDS: Furosemide 40 MG Tablet PO (05:31)
[2019-06-28] MEDS: Lisinopril 10 MG Tablet PO (05:31)
[2019-06-28] MEDS: Metoprolol Tartrate 25 MG Tablet PO ×2 (05:31→17:34)
[2019-06-28] MEDS: Acetaminophen 500 MG Tablet 1000 MG PO ×2 (05:31→21:17)
[2019-06-28] MEDS: Cefdinir 300 MG Capsule PO ×2 (05:31→21:15)
[2019-06-28] MEDS: APIXABAN 5 MG TABLET PO ×2 (05:35→17:34)
[2019-06-28] MEDS: Menthol/Lanolin/Calamine/Znox 113 GM Tube 1 APPLIC TOPICAL ×2 (05:35→21:16)
[2019-06-28] MEDS: Nystatin Powder 15gm Bottle 1 APPLIC TOPICAL ×2 (05:36→21:16)
[2019-06-28] MEDS: Senna/Docusate Sodium 1 Tablet PO (05:36)
[2019-06-28 05:49] LABS: Absolute Lymphocyte Count 1.48 X10^3/uL (0.83-4.51); Absolute Neutrophil Count 5.1 X10^3/uL (2.0-7.7); Basophil# 0.02 X10^3/uL; Basophil% 0.3 % (0-1); Eosinophil# 0.18 X10^3/uL; Eosinophils% 2.5 % (0-5); Hematocrit 27.9 % (37-47); Hemoglobin 8.5 g/dL (12.0-15.0); Lymphocyte # 1.48 X10^3/ul (4.0); Lymphocyte % 20.2 % (19-41); Mean Corp Hgb Conc 30.5 g/dL (32-36); Mean Corpuscular Volume 104.9 fL (81-99); Mean Platelet Vol. 10.8 fl (6.2-12.0); Monocyte# 0.57 X10^3/uL; Monocyte% 7.8 % (0-10); NRBC Flagged by Analyzer 0 % (0-5); Neutrophil # 5.06 X10^3/uL (2.7-7.7); Neutrophil % 68.9 % (47-70); POSITIVE MORPHOLOGY YES; Platelet Count 209 K/mm3 (150-450); RBC Distribution Width SD 78.9 fl (35.1-43.9); Red Blood Count 2.66 M/mm3 (4.2-5.4); White Blood Count 7.3 K/mm3 (4.4-11.0)
[2019-06-28 05:55] LABS: Differential Indicated SCAN CRITERIA MET
[2019-06-28 06:00] LABS: Anion Gap 5 (5-15); BUN 32 mg/dL (7-18); BUN/Creat Ratio 24.6 RATIO (10-20); Calcium,Total 8.2 mg/dL (8.5-10.1); Chloride 102 mmol/L (98-107); EST Glomerular Filtration Rate 42 mL/min (>60); Est Glom Filt Rate - Afr Amer 51 mL/min (>60); Estimated Creatinine Clearance 26.48 ml/min; Glucose 142 mg/dL (74-106); Potassium 3.9 mmol/L (3.5-5.1); Sodium Level 140 mmol/L (136-145)
[2019-06-28 06:15] LABS: Bedside Glucose 131 mg/dL (70-110)
[2019-06-28 06:58] VITALS: PULSE 64; RESP 18; O2SAT 94
[2019-06-28] MEDS: Ipratropium/Albuterol Sulfate 3 ML AMPUL.NEB INHALATION ×2 (06:58→19:12)
[2019-06-28 07:06] LABS: Anisocytosis 2+; Macrocytosis 1+; Platelet Estimate ADEQUATE (ADEQ)
[2019-06-28] MEDS: Iron Polysaccharide Complex 150 MG CAPSULE PO (08:23)
[2019-06-28] MEDS: Glimepiride 2 MG Tablet PO (08:23)
[2019-06-28 10:46] LABS: Bedside Glucose 193 mg/dL (70-110)
[2019-06-28] MEDS: Glucerna Shake 120 ML LIQUID PO (11:18)
[2019-06-28] MEDS: Mag Hydrox/Al Hydrox/Simeth 30 ML UDC 15 ML PO (11:18)
[2019-06-28 11:20] VITALS: PULSE 64; O2SAT 97
[2019-06-28] MEDS: Tuberculin,Purif.prot.deriv. 50 TU/ML Vial 5 ML ID (12:10)
--- NOTE | 2019-06-28 15:29 | NURSING ---
Mepilex applied to LT heel, red, painful, blanchable. pt noted much relief after applying drsg. air boots have been on, legs elevated in recliner chair.
[2019-06-28 15:32] VITALS: BP 142/69; PULSE 75; RESP 18; TEMP 36.8; O2SAT 96
[2019-06-28 17:34] VITALS: PULSE 75
[2019-06-28] MEDS: Budesonide Respules 0.5 MG/2 ML AMPUL.NEB. INHALATION (19:12)
[2019-06-28 19:13] VITALS: PULSE 78; RESP 18
[2019-06-28] MEDS: traZODone 50 MG Tablet PO (21:16)
[2019-06-28] MEDS: Atorvastatin Calcium 20 MG Tablet PO (21:17)
[2019-06-28] MEDS: Mirtazapine 15 MG Tablet 7.5 MG PO (21:17)
[2019-06-28 21:31] LABS: Bedside Glucose 190 mg/dL (70-110)
[2019-06-29] MEDS: Menthol/Lanolin/Calamine/Znox 113 GM Tube 1 APPLIC TOPICAL ×2 (05:28→20:49)
[2019-06-29] MEDS: Nystatin Powder 15gm Bottle 1 APPLIC TOPICAL ×2 (05:29→20:49)
[2019-06-29 05:30] VITALS: BP 157/63; PULSE 69
[2019-06-29] MEDS: Metoprolol Tartrate 25 MG Tablet PO ×2 (05:30→17:48)
[2019-06-29] MEDS: APIXABAN 5 MG TABLET PO ×2 (05:30→17:49)
[2019-06-29] MEDS: Pantoprazole Sodium 40 MG Tablet PO (05:30)
[2019-06-29] MEDS: Lisinopril 10 MG Tablet PO (05:30)
[2019-06-29] MEDS: Flecainide 100 MG Tablet 50 MG PO ×2 (05:30→17:48)
[2019-06-29] MEDS: Senna/Docusate Sodium 1 Tablet PO (05:30)
[2019-06-29] MEDS: Furosemide 40 MG Tablet PO (05:30)
[2019-06-29] MEDS: Acetaminophen 500 MG Tablet 1000 MG PO ×3 (05:30→20:51)
[2019-06-29] MEDS: Glucerna Shake 120 ML LIQUID PO ×3 (05:45→17:48)
[2019-06-29 06:21] LABS: Bedside Glucose 123 mg/dL (70-110)
[2019-06-29 07:00] VITALS: PULSE 77; RESP 16
[2019-06-29] MEDS: Budesonide Respules 0.5 MG/2 ML AMPUL.NEB. INHALATION ×2 (07:00→18:55)
[2019-06-29] MEDS: Ipratropium/Albuterol Sulfate 3 ML AMPUL.NEB INHALATION ×2 (07:00→18:55)
[2019-06-29] MEDS: Iron Polysaccharide Complex 150 MG CAPSULE PO (08:01)
[2019-06-29] MEDS: Cefdinir 300 MG Capsule PO ×2 (08:01→20:48)
[2019-06-29] MEDS: Glimepiride 2 MG Tablet PO (08:01)
[2019-06-29 10:55] LABS: Bedside Glucose 183 mg/dL (70-110)
[2019-06-29] MEDS: Alendronate Sodium 70 MG Tablet PO (11:20)
[2019-06-29 14:18] VITALS: BP 146/60; PULSE 63; RESP 18; TEMP 36.7; O2SAT 96
[2019-06-29 15:27] VITALS: PULSE 77; RESP 16
[2019-06-29] MEDS: Albuterol 2.5 MG/3 ML VIAL.NEB. INHALATION (15:27)
[2019-06-29 17:48] VITALS: PULSE 77
[2019-06-29 18:55] VITALS: PULSE 80; RESP 18
[2019-06-29] MEDS: Atorvastatin Calcium 20 MG Tablet PO (20:48)
[2019-06-29] MEDS: Mirtazapine 15 MG Tablet 7.5 MG PO (20:48)
[2019-06-29] MEDS: traZODone 50 MG Tablet PO (21:34)
[2019-06-29 21:46] LABS: Bedside Glucose 204 mg/dL (70-110)
[2019-06-30] MEDS: Nystatin Powder 15gm Bottle 1 APPLIC TOPICAL ×2 (04:46→20:47)
[2019-06-30] MEDS: Menthol/Lanolin/Calamine/Znox 113 GM Tube 1 APPLIC TOPICAL ×2 (04:46→20:47)
[2019-06-30] MEDS: Glucerna Shake 120 ML LIQUID PO ×3 (04:46→17:10)
[2019-06-30] MEDS: Polyethylene Glycol 3350 17 GM PACKET PO (04:47)
[2019-06-30] MEDS: Lisinopril 10 MG Tablet PO (04:47)
[2019-06-30] MEDS: Pantoprazole Sodium 40 MG Tablet PO (04:48)
[2019-06-30] MEDS: Senna/Docusate Sodium 1 Tablet PO (04:48)
[2019-06-30] MEDS: Flecainide 100 MG Tablet 50 MG PO ×2 (04:48→17:12)
[2019-06-30] MEDS: APIXABAN 5 MG TABLET PO ×2 (04:48→17:11)
[2019-06-30] MEDS: Acetaminophen 500 MG Tablet 1000 MG PO ×3 (04:48→20:46)
[2019-06-30] MEDS: Furosemide 40 MG Tablet PO (04:48)
[2019-06-30 04:49] VITALS: BP 118/51; PULSE 61
[2019-06-30] MEDS: Metoprolol Tartrate 25 MG Tablet PO ×2 (04:49→17:11)
[2019-06-30 06:11] LABS: Bedside Glucose 111 mg/dL (70-110)
[2019-06-30] MEDS: Ipratropium/Albuterol Sulfate 3 ML AMPUL.NEB INHALATION (06:55)
[2019-06-30] MEDS: Budesonide Respules 0.5 MG/2 ML AMPUL.NEB. INHALATION (06:55)
[2019-06-30 06:56] VITALS: PULSE 54; RESP 18; O2SAT 93
[2019-06-30] MEDS: Glimepiride 2 MG Tablet PO (08:12)
[2019-06-30] MEDS: Cefdinir 300 MG Capsule PO ×2 (08:13→20:46)
[2019-06-30] MEDS: Iron Polysaccharide Complex 150 MG CAPSULE PO (08:13)
[2019-06-30 09:33] VITALS: PULSE 57; RESP 16; O2SAT 98
--- NOTE | 2019-06-30 13:37 | CASEMGMT ---
Social Work Reviewed and agreed with social work architectural intern documentation on this date. Moira Mcdonald, STEEL SASH ERECTOR PEDIATRIC ASSISTANT
[2019-06-30 14:17] VITALS: BP 119/51; PULSE 63; RESP 18; TEMP 36.3; O2SAT 93
--- NOTE | 2019-06-30 15:02 | CHAPLAIN ---
Type of Pastoral Visit ___ Initial Visit _x__ Follow-up Visit ___ On-call Visit ___ General Patient Visit ___ Spiritual Assessment ___ Family Conference ___ Bereavement ___ Rapid Response ___ Code Blue ___ Other (describe below) Pastoral Care Referral From _x__ Patient _x__ Family ___ Nurse ___ Physician ___ Meat Hanger ___ Marketing Communications Specialist ___ Other (describe below) Sacrament/Intervention _x__ Active listening ___ Anointing ___ Synagogue ___ Bereavement ___ Communion ___ Audra exploration ___ ___ Life review _x__ Prayer ___ Reconciliation ___ Sacrament of Sick ___ Supportive presence ___ Wedding ___ Other (describe below) Pastoral Comments
[2019-06-30 17:11] VITALS: BP 114/51; PULSE 66
[2019-06-30] MEDS: Mirtazapine 15 MG Tablet 7.5 MG PO (20:46)
[2019-06-30] MEDS: Atorvastatin Calcium 20 MG Tablet PO (20:47)
[2019-06-30] MEDS: traZODone 50 MG Tablet PO (20:47)
[2019-06-30 20:56] LABS: Bedside Glucose 186 mg/dL (70-110)
[2019-07-01] MEDS: Nystatin Powder 15gm Bottle 1 APPLIC TOPICAL ×2 (05:33→21:07)
[2019-07-01] MEDS: Menthol/Lanolin/Calamine/Znox 113 GM Tube 1 APPLIC TOPICAL ×2 (05:33→21:07)
[2019-07-01] MEDS: Glucerna Shake 120 ML LIQUID PO ×4 (05:33→21:02)
[2019-07-01] MEDS: APIXABAN 5 MG TABLET PO ×2 (05:34→17:54)
[2019-07-01] MEDS: Furosemide 40 MG Tablet PO (05:34)
[2019-07-01] MEDS: Acetaminophen 500 MG Tablet 1000 MG PO ×3 (05:34→21:02)
[2019-07-01 05:35] VITALS: BP 134/50; PULSE 63
[2019-07-01] MEDS: Lisinopril 10 MG Tablet PO (05:35)
[2019-07-01] MEDS: Metoprolol Tartrate 25 MG Tablet PO ×2 (05:35→17:55)
[2019-07-01] MEDS: Pantoprazole Sodium 40 MG Tablet PO (05:35)
[2019-07-01] MEDS: Flecainide 100 MG Tablet 50 MG PO ×2 (05:36→17:56)
[2019-07-01 05:41] LABS: Bedside Glucose 110 mg/dL (70-110)
[2019-07-01 06:44] VITALS: PULSE 57; RESP 16
[2019-07-01] MEDS: Ipratropium/Albuterol Sulfate 3 ML AMPUL.NEB INHALATION ×2 (06:44→20:01)
[2019-07-01] MEDS: Budesonide Respules 0.5 MG/2 ML AMPUL.NEB. INHALATION (06:44)
--- NOTE | 2019-07-01 07:09 | MDS.RN ---
Information for the mds was obtained from review of the clinical record, interview of resident, staff, and direct observation of resident's care.
[2019-07-01] MEDS: Iron Polysaccharide Complex 150 MG CAPSULE PO (09:15)
[2019-07-01] MEDS: Glimepiride 2 MG Tablet PO (09:15)
[2019-07-01] MEDS: Cefdinir 300 MG Capsule PO ×2 (09:15→21:02)
--- NOTE | 2019-07-01 10:29 | CASEMGMT ---
Social Work Reviewed and agreed with social work international sales manager documentation on this date. Moira Mcdonald, MEDICARE SPECIALIST DESKTOP ANALYST
[2019-07-01 11:06] LABS: Bedside Glucose 164 mg/dL (70-110)
[2019-07-01 15:37] VITALS: BP 144/54; PULSE 64; RESP 16; TEMP 36.3; O2SAT 94
[2019-07-01 17:55] VITALS: BP 144/54; PULSE 64
[2019-07-01 20:01] VITALS: PULSE 58; RESP 18; O2SAT 98
[2019-07-01] MEDS: Atorvastatin Calcium 20 MG Tablet PO (21:02)
[2019-07-01] MEDS: Mirtazapine 15 MG Tablet 7.5 MG PO (21:02)
[2019-07-01 21:05] LABS: Bedside Glucose 210 mg/dL (70-110)
[2019-07-01] MEDS: traZODone 50 MG Tablet PO (21:05)
[2019-07-02] MEDS: Glucerna Shake 120 ML LIQUID PO ×4 (04:16→21:27)
[2019-07-02] MEDS: Nystatin Powder 15gm Bottle 1 APPLIC TOPICAL ×2 (04:16→21:28)
[2019-07-02] MEDS: Menthol/Lanolin/Calamine/Znox 113 GM Tube 1 APPLIC TOPICAL ×2 (04:16→21:27)
[2019-07-02 04:18] VITALS: BP 114/51; PULSE 61
[2019-07-02] MEDS: Furosemide 40 MG Tablet PO (04:18)
[2019-07-02] MEDS: APIXABAN 5 MG TABLET PO ×2 (04:18→17:21)
[2019-07-02] MEDS: Metoprolol Tartrate 25 MG Tablet PO ×2 (04:18→16:41)
[2019-07-02] MEDS: Lisinopril 10 MG Tablet PO (04:18)
[2019-07-02] MEDS: Acetaminophen 500 MG Tablet 1000 MG PO ×3 (04:19→21:25)
[2019-07-02] MEDS: Flecainide 100 MG Tablet 50 MG PO ×2 (04:19→16:40)
[2019-07-02] MEDS: Pantoprazole Sodium 40 MG Tablet PO (04:20)
[2019-07-02 06:01] LABS: Bedside Glucose 132 mg/dL (70-110)
[2019-07-02] MEDS: Ipratropium/Albuterol Sulfate 3 ML AMPUL.NEB INHALATION ×2 (06:49→20:15)
[2019-07-02] MEDS: Budesonide Respules 0.5 MG/2 ML AMPUL.NEB. INHALATION ×2 (06:49→20:25)
[2019-07-02 07:45] VITALS: PULSE 55; RESP 18; O2SAT 95
[2019-07-02] MEDS: Glimepiride 2 MG Tablet PO (08:14)
[2019-07-02] MEDS: Iron Polysaccharide Complex 150 MG CAPSULE PO (08:14)
[2019-07-02] MEDS: Cefdinir 300 MG Capsule PO ×2 (08:15→21:27)
--- NOTE | 2019-07-02 09:50 | NURSING ---
DRY DRESSING TO RIGHT THIGH DUE TO WOUND DRAINING. PER MAUDE DAVIDSON/WOUND NURSE ORDERS. DRESSING APPLIED TO LEFT LEG BELOW KNEE DUE TO MODERATE CLEAR DRAINAGE. BOTH LEGS WRAPPED IN OPAL WRAPS. NEW MEPILEX APPLIED TO LEFT HEEL. REPORTED TO MAUDE CROUCH
[2019-07-02 14:32] VITALS: BP 119/49; PULSE 64; RESP 18; TEMP 36.6; O2SAT 98
[2019-07-02 16:41] VITALS: BP 119/49; PULSE 64
--- NOTE | 2019-07-02 19:47 | PN_ITS ---
Subjective: Resident seen in room, sitting in recliner. Resident had right subclavian central removed 12 days prior. Daughter noticed, she has bruising right chest above clavicle and into lower neck. She was concerned there maybe bleeding from subclavian line site. Vitals/I&O's: Vital Signs Temp Pulse Resp BP Pulse Ox 97.8 F 64 18 119/49 L 98 07/02/19 14:32 07/02/19 16:41 07/02/19 14:32 07/02/19 16:41 07/02/19 14:32 Oxygen Flow Rate (L/min) 0.5 Oxygen Delivery Method Room Air Weight: 108.012 kg Body Mass Index (BMI) 47.8 Finger Stick Blood Glucose 211 Intake and Output for Last 24 Hours 06/30/19 07/01/19 07/02/19 23:59 23:59 23:59 Intake Total 450 / 450 600 / 600 360 / 360 Output Total 250 / 250 Balance 450 / 450 350 / 350 360 / 360 Microbiology Past 72 Hours 06/27/19 11:00 Urine, Catheterized Urine Culture - Final Proteus mirabilis Escherichia coli Laboratory Results 07/01/19 20:59: POC Glucose 210 H 07/02/19 05:53: POC Glucose 132 H Past Medical History Past Medical History (Chronic Problems): Chronic Problems (Last Updated 06/16/19 @ 15:29 by Andrews Martinez DO) Diabetes mellitus type II, controlled (Chronic) Atrial fibrillation (Chronic) Methicillin resistant Staph aureus culture positive (Chronic) Cellulitis of right ankle (Chronic) Chronic obstructive pulmonary disease (Chronic) Osteoporosis (Chronic) Anxiety (Chronic) GERD (gastroesophageal reflux disease) (Chronic) Edema (Chronic) Insomnia (Chronic) Hypertension (Chronic) Paroxysmal atrial fibrillation (Chronic) Sick sinus syndrome (Chronic) Anticoagulant long-term use (Chronic) Anemia, unspecified (Chronic) Renal failure (ARF), acute on chronic (Chronic) Atrial fibrillation by electrocardiogram (Chronic) Medical History: Medical History (Last Updated 06/16/19 @ 15:29 by Andrews Martinez DO) Anemia D64.9 DM2 (diabetes mellitus, type 2) E11.9 GERD (gastroesophageal reflux disease) K21.9 CKD (chronic kidney disease) N18.9 COPD (chronic obstructive pulmonary disease) J44.9 HTN (hypertension) I10 Allergies Penicillins [PCN] Allergy (Verified 06/16/19 11:51) Other shellfish derived Allergy (Verified 06/16/19 11:53) Other Home Medications: Ambulatory Orders Medication Instructions Recorded Acetaminophen 1,000 mg PO TID 06/16/19 Albuterol Sulfate 2.5 mg IH BID 06/16/19 Albuterol Sulfate 2.5 mg IH Q4H PRN PRN 06/16/19 Alendronate Sodium 70 mg PO CORRAL 06/16/19 Apixaban [Eliquis] 5 mg PO BID 06/16/19 Doxycycline 100 mg PO BID 06/16/19 Famotidine 20 mg PO DAILY 06/16/19 Flecainide Acetate 50 mg PO BID 06/16/19 Fluticasone/Salmeterol [Airduo 1 puff IH BID 06/16/19 Respiclick 113-14 Mcg] Insulin Glargine,Hum.rec.anlog 15 unit SQ QHS 06/16/19 [Basaglar Kwikpen U-100] Insulin Lispro [Humalog KwikPen] 100 unit SQ 0730,1630 06/16/19 Ipratropium/Albuterol Sulfate 3 ml INHALATION Q6H PRN PRN 06/16/19 [Duoneb] Lisinopril [Zestril] 10 mg PO DAILY 06/16/19 Magnesium Oxide [Magnesium] 400 mg PO BID 06/16/19 Metoprolol Tartrate 25 mg PO BID 06/16/19 Simvastatin 40 mg PO QHS 06/16/19 traZODone [Desyrel] 50 mg PO QHS 06/16/19 Furosemide 40 mg PO DAILY 06/20/19 Surgical History: noncontributory Psychiatric 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 Lives: [place] Smoking Status: Former smoker Tobacco Use: Cigarettes Alcohol: None Drugs: None - *Family History Maternal History Items: No pertinent history Paternal History Items: No pertinent history Capacity - Capacity Assessment Tool Can the patient make a choice & communicate that choice?: Yes Can the patient understand benefits, risks and alternatives?: Yes Can the patient make a logical, rational choice?: Yes Is the choice the patient makes consistent w/ their values?: Yes Is there an impending, emergent risk to the patient?: No Does the patient have an Advance Directive?: No Is there a Surrogate Available?: Yes i.e. HCPOA: Yes i.e. close relative (spouse, child, parent, sibling)?: Yes Review of Systems Constitutional: Denies: Chills, Fever, Weight Change HEENT: Denies: Head Aches, Sinus Congestion, Sinus Drainage Cardiovascular: Denies: Chest Pain, Palpitations Respiratory: Denies: Cough, Shortness of breath at rest, Sputum production Gastrointestinal: Denies: Abdominal Pain, Nausea, Vomiting Genitourinary: Denies: Dysuria Musculoskeletal: Denies: Joint Pain, Joint Tenderness Skin: Denies: Rash, Wounds Neurological: Denies: Numbness, Tingling, Focal weakness Psychiatric: Denies: Anxiety, Depression, Homicidal Ideations, Suicidal Ideations Hematologic/ Lymphatic: Denies: Easy Bruising, Easy Bleeding Patient Problems: Active and Suspected Problems (Last Updated 06/16/19 @ 15:29 by Andrews Martinez DO) Debility (Acute) Unresponsiveness (Acute) Hyperkalemia (Acute) Cardiogenic shock (Acute) Acute respiratory failure (Acute) - Physical Exam Vitals/I&O's: Vital Signs Temp Pulse Resp BP Pulse Ox 97.8 F 64 18 119/49 L 98 07/02/19 14:32 07/02/19 16:41 07/02/19 14:32 07/02/19 16:41 07/02/19 14:32 Oxygen Flow Rate (L/min) 0.5 Oxygen Delivery Method Room Air Weight: 108.012 kg Body Mass Index (BMI) 47.8 Finger Stick Blood Glucose 211 Intake and Output for Last 24 Hours 06/30/19 07/01/19 07/02/19 23:59 23:59 23:59 Intake Total 450 / 450 600 / 600 360 / 360 Output Total 250 / 250 Balance 450 / 450 350 / 350 360 / 360 General: Alert, Oriented x3, Cooperative HEENT: Atraumatic, PERRLA, EOMI, Normocephalic Neck: Supple, No JVD, Negative Carotid Bruits, - - Bruising right upper chest, right lower neck. Lungs: Clear to auscultation, Normal air movement Cardiovascular: Regular rate, No murmurs Abdomen: Bowel Sounds Present, Soft, Non Tender Extremities: No edema, Capillary Refill Less than 3 Seconds Skin: No rashes, No breakdown Musculoskeletal: No Tenderness to Palpation of Joints or Extremities Neurological: Cranial nerves II-XII grossly intact Psych/Mental Status: Normal Affect, Appropriate Microbiology Past 72 Hours 06/27/19 11:00 Urine, Catheterized Urine Culture - Final Proteus mirabilis Escherichia coli Laboratory Results 07/01/19 20:59: POC Glucose 210 H 07/02/19 05:53: POC Glucose 132 H Current Medications Acetaminophen (Tylenol) 1,000 mg PO TID [facility] Last Admin: 07/02/19 13:41 Dose: 1,000 mg Documented by: Al Hydroxide/Mg Hydroxide (Mylanta Ii) 15 ml PO Q4H PRN PRN PRN Reason: INDIGESTION Last Admin: 06/28/19 11:18 Dose: 15 ml Documented by: Albuterol Sulfate (Ventolin Aerosols) 2.5 mg INHALATION Q2H PRN PRN PRN Reason: WHEEZING Last Admin: 06/29/19 15:27 Dose: 2.5 mg Documented by: Albuterol/Ipratropium (Duoneb) 3 ml INHALATION BID.RT [facility] Last Admin: 07/02/19 06:49 Dose: 3 ml Documented by: Alendronate Sodium (Fosamax) 70 mg PO Corral@1000 [facility] Last Admin: 06/29/19 11:20 Dose: 70 mg Documented by: Apixaban (Eliquis) 5 mg PO BID [facility] Last Admin: 07/02/19 17:21 Dose: 5 mg Documented by: Atorvastatin Calcium (Lipitor) 20 mg PO QHS [facility] Last Admin: 07/01/19 21:02 Dose: 20 mg Documented by: Bisacodyl (Dulcolax) 10 mg PO DAILY PRN PRN Reason: Constipation Budesonide (Pulmicort Aerosol) 0.5 mg INHALATION Q12H.RT [facility] Last Admin: 07/02/19 06:49 Dose: 0.5 mg Documented by: Calamine/Phenol (Calmoseptine Ointment) 1 applic TOPICAL 0600,2200 [facility]; Protocol Last Admin: 07/02/19 04:16 Dose: 1 applicatio Documented by: Cefdinir (Omnicef [Equiv]) 300 mg PO 0800,2000 [facility] Stop: 07/03/19 20:01 Last Admin: 07/02/19 08:15 Dose: 300 mg Documented by: Cholecalciferol (Vitamin D) 1,000 unit PO DAILY [facility] Last Admin: 07/02/19 04:19 Dose: 1,000 unit Documented by: Flecainide Acetate (Tambocor) 50 mg PO BID [facility] Last Admin: 07/02/19 16:40 Dose: 50 mg Documented by: Furosemide (Lasix) 40 mg PO DAILY [facility] Last Admin: 07/02/19 04:18 Dose: 40 mg Documented by: Glimepiride (Amaryl) 2 mg PO DAILY@0800 [facility] Last Admin: 07/02/19 08:14 Dose: 2 mg Documented by: Insulin Glargine (Lantus (Bkc)) 10 units SC QHS [facility] Last Admin: 07/01/19 21:08 Dose: 10 u Documented by: Lisinopril (Zestril) 10 mg PO DAILY [facility] Last Admin: 07/02/19 04:18 Dose: 10 mg Documented by: Metoprolol Tartrate (Lopressor (Beta Lucina)) 25 mg PO BID [facility] Last Admin: 07/02/19 16:41 Dose: 25 mg Documented by: Mirtazapine (Remeron) 7.5 mg PO QHS [facility] Last Admin: 07/01/19 21:02 Dose: 7.5 mg Documented by: Multi-Ingredient Cream (Eucerin) 1 applic TOPICAL 2200 [facility]; Protocol Last Admin: 07/01/19 21:08 Dose: 1 applicatio Documented by: Nutritional Formula (Lactose Free) (Glucerna Shake) 120 ml PO 4X/DAY [facility] Last Admin: 07/02/19 16:41 Dose: 120 ml Documented by: Nutritional Formula (Lactose Free) (Ensure Enlive) 120 ml PO 4X/DAY [facility] Stop: 07/02/19 23:59 Last Admin: 07/02/19 16:41 Dose: 120 ml Documented by: Nystatin (Mycostatin Powder) 1 applic TOPICAL 0600,2200 [facility]; Protocol Last Admin: 07/02/19 04:16 Dose: 1 applicatio Documented by: Pantoprazole Sodium (Protonix) 40 mg PO DAILY [facility] Last Admin: 07/02/19 04:20 Dose: 40 mg Documented by: Polyethylene Glycol (Miralax) 17 gm PO DAILY [facility] Last Admin: 07/02/19 04:17 Dose: Not Given Documented by: Polysaccharide Iron Complex (Ferrex 150) [facility] Last Admin: 07/02/19 08:14 Dose: 150 mg Documented by: Senna/Docusate Sodium (Senokot-S, Rachel-Colace) 1 tablet PO BID [facility] Last Admin: 07/02/19 16:43 Dose: Not Given Documented by: Trazodone HCl (Desyrel) 50 mg PO QHS [facility] Last Admin: 07/01/19 21:05 Dose: 50 mg Documented by: Assessment/Plan All Active Problems (Last Updated 06/16/19 @ 15:29 by Andrews Martinez DO) Debility (Acute) Unresponsiveness (Acute) Hyperkalemia (Acute) Cardiogenic shock (Acute) Acute respiratory failure (Acute) History of respiratory failure with hypo (Acute) Acute kidney injury (Acute) Hyperlipidemia (Acute) Acute hyperkalemia (Acute) 78 year old female with below past medical history hospitalized for hyperkalemia, acute kidney injury, complicated by respiratory failure requiring intubation, admitted to TCU with debility, here for rehabilitation, strengthening, prior to discharge home alone. Resident would like to attend a wedding in [place] August 10, 2019. * Bruising - Risk of active bleeding from right subclavian line site low. Nevertheless, hold Eliquis 5MG twice daily the next 3 days, then resume on 4th day, will monitor for extension of bruising.
[2019-07-02 20:15] VITALS: PULSE 62; RESP 18
[2019-07-02 21:15] LABS: Bedside Glucose 207 mg/dL (70-110)
[2019-07-02] MEDS: Atorvastatin Calcium 20 MG Tablet PO (21:26)
[2019-07-02] MEDS: traZODone 50 MG Tablet PO (21:26)
[2019-07-02] MEDS: Mirtazapine 15 MG Tablet 7.5 MG PO (21:26)
[2019-07-03] MEDS: Acetaminophen 500 MG Tablet 1000 MG PO ×3 (05:03→21:52)
[2019-07-03] MEDS: Polyethylene Glycol 3350 17 GM PACKET PO (05:03)
[2019-07-03] MEDS: Pantoprazole Sodium 40 MG Tablet PO (05:03)
[2019-07-03] MEDS: Senna/Docusate Sodium 1 Tablet PO (05:04)
[2019-07-03] MEDS: Flecainide 100 MG Tablet 50 MG PO ×2 (05:04→17:45)
[2019-07-03] MEDS: Furosemide 40 MG Tablet PO (05:06)
[2019-07-03] MEDS: Nystatin Powder 15gm Bottle 1 APPLIC TOPICAL ×2 (05:07→21:50)
[2019-07-03] MEDS: Glucerna Shake 120 ML LIQUID PO ×4 (05:07→21:49)
[2019-07-03] MEDS: Menthol/Lanolin/Calamine/Znox 113 GM Tube 1 APPLIC TOPICAL ×2 (05:08→21:48)
[2019-07-03] MEDS: Lisinopril 10 MG Tablet PO (05:09)
[2019-07-03 05:12] VITALS: BP 111/46; PULSE 63
[2019-07-03 05:24] VITALS: BP 111/46
[2019-07-03 06:20] LABS: Bedside Glucose 152 mg/dL (70-110)
[2019-07-03 06:47] VITALS: PULSE 74; RESP 18; O2SAT 93
[2019-07-03] MEDS: Budesonide Respules 0.5 MG/2 ML AMPUL.NEB. INHALATION ×2 (06:47→19:14)
[2019-07-03] MEDS: Ipratropium/Albuterol Sulfate 3 ML AMPUL.NEB INHALATION ×2 (06:47→19:14)
[2019-07-03] MEDS: Cefdinir 300 MG Capsule PO ×2 (09:28→21:46)
[2019-07-03] MEDS: Iron Polysaccharide Complex 150 MG CAPSULE PO (09:28)
[2019-07-03] MEDS: Glimepiride 2 MG Tablet PO (09:29)
[2019-07-03 11:01] LABS: Bedside Glucose 169 mg/dL (70-110)
[2019-07-03 14:25] VITALS: BP 141/48; PULSE 68; RESP 20; TEMP 36.6; O2SAT 97
[2019-07-03 17:30] LABS: Bedside Glucose 133 mg/dL (70-110)
[2019-07-03 17:45] VITALS: PULSE 68
[2019-07-03] MEDS: Metoprolol Tartrate 25 MG Tablet PO (17:45)
[2019-07-03 19:15] VITALS: PULSE 69; RESP 18
[2019-07-03 21:46] LABS: Bedside Glucose 164 mg/dL (70-110)
[2019-07-03] MEDS: traZODone 50 MG Tablet PO (21:48)
[2019-07-03] MEDS: Atorvastatin Calcium 20 MG Tablet PO (21:50)
[2019-07-03] MEDS: Mirtazapine 15 MG Tablet 7.5 MG PO (21:51)
[2019-07-04] MEDS: Senna/Docusate Sodium 1 Tablet PO (05:37)
[2019-07-04] MEDS: Flecainide 100 MG Tablet 50 MG PO ×2 (05:37→17:52)
[2019-07-04 05:38] VITALS: BP 145/56; PULSE 60
[2019-07-04] MEDS: Acetaminophen 500 MG Tablet 1000 MG PO ×3 (05:38→21:35)
[2019-07-04] MEDS: Metoprolol Tartrate 25 MG Tablet PO ×2 (05:38→17:53)
[2019-07-04] MEDS: Pantoprazole Sodium 40 MG Tablet PO (05:38)
[2019-07-04] MEDS: Lisinopril 10 MG Tablet PO (05:38)
[2019-07-04] MEDS: Furosemide 40 MG Tablet PO (05:38)
[2019-07-04] MEDS: Glucerna Shake 120 ML LIQUID PO ×3 (05:43→17:52)
[2019-07-04] MEDS: Menthol/Lanolin/Calamine/Znox 113 GM Tube 1 APPLIC TOPICAL ×2 (05:43→21:35)
[2019-07-04] MEDS: Nystatin Powder 15gm Bottle 1 APPLIC TOPICAL ×2 (05:44→21:37)
[2019-07-04 06:21] LABS: Bedside Glucose 112 mg/dL (70-110)
[2019-07-04] MEDS: Ipratropium/Albuterol Sulfate 3 ML AMPUL.NEB INHALATION ×2 (06:55→19:20)
[2019-07-04] MEDS: Iron Polysaccharide Complex 150 MG CAPSULE PO (09:19)
[2019-07-04] MEDS: Glimepiride 2 MG Tablet PO (09:19)
[2019-07-04 11:05] LABS: Bedside Glucose 134 mg/dL (70-110)
[2019-07-04 14:30] VITALS: BP 150/62; PULSE 65; RESP 18; TEMP 36.7; O2SAT 92
[2019-07-04 16:15] LABS: Bedside Glucose 96 mg/dL (70-110)
--- NOTE | 2019-07-04 16:59 | NURSING ---
drsg changed to RLE d/t seeping from pin hole just below knee anteriorly/medially. Patrick wrapped per order. legs elevated in recliner chair
[2019-07-04 17:53] VITALS: PULSE 65
[2019-07-04 19:20] VITALS: PULSE 69; RESP 24
[2019-07-04] MEDS: Budesonide Respules 0.5 MG/2 ML AMPUL.NEB. INHALATION (19:20)
[2019-07-04 20:02] VITALS: RESP 18
[2019-07-04 20:55] LABS: Bedside Glucose 177 mg/dL (70-110)
[2019-07-04] MEDS: traZODone 50 MG Tablet PO (21:36)
[2019-07-04] MEDS: Atorvastatin Calcium 20 MG Tablet PO (21:36)
[2019-07-04] MEDS: Mirtazapine 15 MG Tablet 7.5 MG PO (21:36)
[2019-07-05] MEDS: Acetaminophen 500 MG Tablet 1000 MG PO ×3 (05:30→21:13)
[2019-07-05] MEDS: Menthol/Lanolin/Calamine/Znox 113 GM Tube 1 APPLIC TOPICAL ×2 (05:30→21:16)
[2019-07-05] MEDS: Nystatin Powder 15gm Bottle 1 APPLIC TOPICAL ×2 (05:30→21:16)
[2019-07-05 05:31] VITALS: BP 148/56; PULSE 60
[2019-07-05] MEDS: Lisinopril 10 MG Tablet PO (05:31)
[2019-07-05] MEDS: Flecainide 100 MG Tablet 50 MG PO ×2 (05:31→17:39)
[2019-07-05] MEDS: Pantoprazole Sodium 40 MG Tablet PO (05:31)
[2019-07-05] MEDS: Metoprolol Tartrate 25 MG Tablet PO ×2 (05:31→17:39)
[2019-07-05] MEDS: Furosemide 40 MG Tablet PO (05:32)
[2019-07-05 05:51] LABS: Bedside Glucose 103 mg/dL (70-110)
[2019-07-05 07:05] VITALS: PULSE 56; RESP 18; O2SAT 95
[2019-07-05] MEDS: Budesonide Respules 0.5 MG/2 ML AMPUL.NEB. INHALATION ×2 (07:05→19:50)
[2019-07-05] MEDS: Ipratropium/Albuterol Sulfate 3 ML AMPUL.NEB INHALATION ×2 (07:05→19:53)
[2019-07-05 07:09] LABS: Absolute Lymphocyte Count 0.92 X10^3/uL (0.83-4.51); Absolute Neutrophil Count 3.7 X10^3/uL (2.0-7.7); Basophil# 0.02 X10^3/uL; Basophil% 0.4 % (0-1); Eosinophil# 0.18 X10^3/uL; Eosinophils% 3.4 % (0-5); Hematocrit 26.7 % (37-47); Lymphocyte # 0.92 X10^3/ul (4.0); Lymphocyte % 17.6 % (19-41); Mean Corpuscular Hgb 31.6 pg (27.0-32.0); Mean Corpuscular Volume 105.5 fL (81-99); Mean Platelet Vol. 10.2 fl (6.2-12.0); Monocyte# 0.38 X10^3/uL; Monocyte% 7.3 % (0-10); NRBC Flagged by Analyzer 0 % (0-5); Neutrophil # 3.71 X10^3/uL (2.7-7.7); Neutrophil % 71.1 % (47-70); POSITIVE MORPHOLOGY YES; Platelet Count 195 K/mm3 (150-450); RBC Distribution Width CV 18.1 % (11.6-14.6); RBC Distribution Width SD 71.4 fl (35.1-43.9); Red Blood Count 2.53 M/mm3 (4.2-5.4); White Blood Count 5.2 K/mm3 (4.4-11.0)
[2019-07-05 07:11] LABS: Differential Indicated SCAN CRITERIA MET
[2019-07-05 07:33] LABS: Anisocytosis 1+; Differential Comment SCANNED
[2019-07-05 07:42] LABS: Anion Gap 2 (5-15); BUN 40 mg/dL (7-18); Calcium,Total 9.1 mg/dL (8.5-10.1); Chloride 104 mmol/L (98-107); Creatinine, Serum 1.48 mg/dL (0.55-1.02); EST Glomerular Filtration Rate 36 mL/min (>60); Est Glom Filt Rate - Afr Amer 44 mL/min (>60); Estimated Creatinine Clearance 23.26 ml/min; Glucose 92 mg/dL (74-106); Sodium Level 139 mmol/L (136-145)
[2019-07-05] MEDS: Glimepiride 2 MG Tablet PO (09:05)
[2019-07-05] MEDS: Iron Polysaccharide Complex 150 MG CAPSULE PO (09:05)
[2019-07-05 11:01] LABS: Bedside Glucose 165 mg/dL (70-110)
[2019-07-05] MEDS: Glucerna Shake 120 ML LIQUID PO (11:22)
[2019-07-05 14:43] VITALS: BP 128/53; PULSE 61; RESP 16; TEMP 36.4; O2SAT 94
[2019-07-05 16:01] LABS: Bedside Glucose 123 mg/dL (70-110)
[2019-07-05 17:39] VITALS: BP 128/53; PULSE 61
[2019-07-05] MEDS: Glucerna Shake 120 ML LIQUID 60 ML PO ×2 (17:39→21:13)
[2019-07-05 19:45] VITALS: PULSE 63; RESP 18; O2SAT 95
[2019-07-05] MEDS: Mirtazapine 15 MG Tablet 7.5 MG PO (21:13)
[2019-07-05] MEDS: traZODone 50 MG Tablet PO (21:14)
[2019-07-05] MEDS: Atorvastatin Calcium 20 MG Tablet PO (21:14)
[2019-07-05 21:16] LABS: Bedside Glucose 171 mg/dL (70-110)
[2019-07-06] MEDS: Glucerna Shake 120 ML LIQUID 60 ML PO ×4 (05:02→21:26)
[2019-07-06] MEDS: Pantoprazole Sodium 40 MG Tablet PO (05:03)
[2019-07-06] MEDS: Furosemide 40 MG Tablet PO (05:03)
[2019-07-06] MEDS: Acetaminophen 500 MG Tablet 1000 MG PO ×2 (05:03→14:04)
[2019-07-06] MEDS: Flecainide 100 MG Tablet 50 MG PO ×2 (05:04→17:13)
[2019-07-06] MEDS: Lisinopril 10 MG Tablet PO (05:04)
[2019-07-06] MEDS: APIXABAN 5 MG TABLET PO ×2 (05:04→17:12)
[2019-07-06 05:05] VITALS: BP 114/61; PULSE 107
[2019-07-06] MEDS: Metoprolol Tartrate 25 MG Tablet PO ×2 (05:05→17:12)
[2019-07-06] MEDS: Nystatin Powder 15gm Bottle 1 APPLIC TOPICAL ×2 (05:08→21:28)
[2019-07-06] MEDS: Menthol/Lanolin/Calamine/Znox 113 GM Tube 1 APPLIC TOPICAL ×2 (05:08→21:28)
[2019-07-06 06:21] LABS: Bedside Glucose 112 mg/dL (70-110)
[2019-07-06] MEDS: Budesonide Respules 0.5 MG/2 ML AMPUL.NEB. INHALATION ×2 (06:48→18:42)
[2019-07-06] MEDS: Ipratropium/Albuterol Sulfate 3 ML AMPUL.NEB INHALATION ×2 (06:48→18:42)
[2019-07-06 06:49] VITALS: PULSE 108; RESP 18; O2SAT 92
[2019-07-06] MEDS: Glimepiride 2 MG Tablet PO (08:58)
[2019-07-06] MEDS: Iron Polysaccharide Complex 150 MG CAPSULE PO (08:58)
[2019-07-06 11:01] LABS: Bedside Glucose 132 mg/dL (70-110)
[2019-07-06] MEDS: Alendronate Sodium 70 MG Tablet PO (11:01)
[2019-07-06 14:38] VITALS: BP 147/68; PULSE 104; RESP 18; TEMP 36.6; O2SAT 96
[2019-07-06 17:12] VITALS: PULSE 104
[2019-07-06 18:42] VITALS: PULSE 80; RESP 18
[2019-07-06] MEDS: Acetaminophen 325 MG Tablet 650 MG PO (21:27)
[2019-07-06] MEDS: Atorvastatin Calcium 20 MG Tablet PO (21:27)
[2019-07-06] MEDS: traZODone 50 MG Tablet PO (21:27)
[2019-07-06] MEDS: Mirtazapine 15 MG Tablet 7.5 MG PO (21:27)
[2019-07-06 21:35] LABS: Bedside Glucose 153 mg/dL (70-110)
[2019-07-07] VITALS (7 sets, daily range): BP systolic 105–153; BP diastolic 54–73; PULSE 56–105; RESP 18–28; TEMP 36.5; O2SAT 93–97
[2019-07-07] MEDS: Menthol/Lanolin/Calamine/Znox 113 GM Tube 1 APPLIC TOPICAL ×2 (05:23→21:45)
[2019-07-07] MEDS: Glucerna Shake 120 ML LIQUID 60 ML PO ×4 (05:23→21:53)
[2019-07-07] MEDS: Nystatin Powder 15gm Bottle 1 APPLIC TOPICAL ×2 (05:24→21:45)
[2019-07-07] MEDS: Flecainide 100 MG Tablet 50 MG PO ×2 (05:26→17:48)
[2019-07-07] MEDS: Acetaminophen 325 MG Tablet 650 MG PO ×3 (05:26→21:51)
[2019-07-07] MEDS: Metoprolol Tartrate 25 MG Tablet PO ×2 (05:26→17:47)
[2019-07-07] MEDS: APIXABAN 5 MG TABLET PO ×2 (05:26→17:47)
[2019-07-07] MEDS: Furosemide 40 MG Tablet PO (05:27)
[2019-07-07] MEDS: Lisinopril 10 MG Tablet PO (05:27)
[2019-07-07] MEDS: Pantoprazole Sodium 40 MG Tablet PO (05:27)
[2019-07-07 06:01] LABS: Hematocrit 27.9 % (37-47); Hemoglobin 8.5 g/dL (12.0-15.0)
[2019-07-07 06:16] LABS: Bedside Glucose 102 mg/dL (70-110)
[2019-07-07] MEDS: Budesonide Respules 0.5 MG/2 ML AMPUL.NEB. INHALATION ×2 (07:03→20:52)
[2019-07-07] MEDS: Ipratropium/Albuterol Sulfate 3 ML AMPUL.NEB INHALATION ×2 (07:03→20:52)
[2019-07-07] MEDS: Iron Polysaccharide Complex 150 MG CAPSULE PO (09:05)
[2019-07-07] MEDS: Glimepiride 2 MG Tablet PO (09:06)
[2019-07-07 11:00] LABS: Bedside Glucose 140 mg/dL (70-110)
[2019-07-07] MEDS: Albuterol 2.5 MG/3 ML VIAL.NEB. INHALATION (16:40)
[2019-07-07 17:16] LABS: Bedside Glucose 118 mg/dL (70-110)
--- NOTE | 2019-07-07 17:43 | NURSING ---
pt noted with dry intermittant cough, daughter feels it is COPD related and needing to use PRN aerosals. RT notified and aerosol given per order. Dr Nieves updated new order for cxr & cont to encourage use of I.S.
--- NOTE | 2019-07-07 18:30 | RAD_ITS ---
STUDY: X-RAY CHEST REASON FOR EXAM: Female, 78 years old. cough TECHNIQUE: PA and lateral views of the chest. COMPARISON: 06/18/2019 FINDINGS: ET tube and enteric tube is been removed. Cardiomegaly. Small right effusion. Mild diffuse pulmonary vascular congestion. Lungs are hypoinflated. RAD/Chest PA and Lateral IMPRESSION: Cardiomegaly. Right basilar effusion. Slight diffuse vascular congestion Electronically Signed: Tim Garcia DO at 19:45 EST Tel , Service support ,
[2019-07-07 21:01] LABS: Bedside Glucose 146 mg/dL (70-110)
[2019-07-07] MEDS: Atorvastatin Calcium 20 MG Tablet PO (21:52)
[2019-07-07] MEDS: Mirtazapine 15 MG Tablet 7.5 MG PO (21:52)
[2019-07-07] MEDS: traZODone 50 MG Tablet PO (21:52)
[2019-07-08] VITALS (7 sets, daily range): BP systolic 121–131; BP diastolic 54–63; PULSE 59–66; RESP 18–28; TEMP 36.2; O2SAT 92–95
[2019-07-08] MEDS: Albuterol 2.5 MG/3 ML VIAL.NEB. INHALATION ×2 (01:44→10:33)
[2019-07-08] MEDS: Glucerna Shake 120 ML LIQUID 60 ML PO ×3 (05:41→21:56)
[2019-07-08] MEDS: Flecainide 100 MG Tablet 50 MG PO ×2 (05:42→16:21)
[2019-07-08] MEDS: Lisinopril 10 MG Tablet PO (05:45)
[2019-07-08] MEDS: Pantoprazole Sodium 40 MG Tablet PO (05:45)
[2019-07-08] MEDS: Acetaminophen 325 MG Tablet 650 MG PO ×3 (05:45→22:00)
[2019-07-08] MEDS: Senna/Docusate Sodium 1 Tablet PO (05:45)
[2019-07-08] MEDS: Metoprolol Tartrate 25 MG Tablet PO ×2 (05:46→16:21)
[2019-07-08] MEDS: APIXABAN 5 MG TABLET PO ×2 (05:47→16:21)
[2019-07-08] MEDS: Menthol/Lanolin/Calamine/Znox 113 GM Tube 1 APPLIC TOPICAL ×2 (05:47→21:56)
[2019-07-08] MEDS: Nystatin Powder 15gm Bottle 1 APPLIC TOPICAL ×2 (05:48→21:56)
[2019-07-08 06:06] LABS: Bedside Glucose 90 mg/dL (70-110)
[2019-07-08 06:53] LABS: Magnesium 1.7 mg/dL (1.6-2.6)
[2019-07-08] MEDS: Budesonide Respules 0.5 MG/2 ML AMPUL.NEB. INHALATION ×2 (07:25→19:18)
[2019-07-08] MEDS: Ipratropium/Albuterol Sulfate 3 ML AMPUL.NEB INHALATION ×2 (07:25→19:18)
[2019-07-08] MEDS: Iron Polysaccharide Complex 150 MG CAPSULE PO (07:38)
[2019-07-08] MEDS: Glimepiride 2 MG Tablet PO (07:38)
[2019-07-08 10:51] LABS: Bedside Glucose 97 mg/dL (70-110)
--- NOTE | 2019-07-08 11:43 | RAD_ITS ---
STUDY: X-RAY - ABDOMEN/PELVIS REASON FOR EXAM: Female, 78 years old. LOOSE STOOL X 2 WEEKS TECHNIQUE: 3 AP supine views of the abdomen and pelvis. COMPARISON: None. FINDINGS: Normal visualized lung bases. There is an unremarkable bowel gas pattern. There is no demonstrated free abdominal air. The visualized liver, spleen and kidneys are grossly normal in size and morphology. Normal soft tissue structures. There are diffuse degenerative changes of the visualized lumbar spine. RAD/Abdomen Single View IMPRESSION: No evidence of small bowel obstruction. No gaseous dilated loops of bowel. Some fecal retention throughout the colon. No acute findings Electronically Signed: Tim Garcia DO at 15:32 EST Tel , Service support ,
--- NOTE | 2019-07-08 11:43 | NURSING ---
Addendum entered by Janiya White 07/08/19 16:05: Ezequiel updated on abd xray, new order to administer mag citrate x1. pt agreeable, daughter at bedside. Original Note: pt c/o loose stools, feels its from the stool softners. Dr justice udpated, new order for abd xray.
[2019-07-08] MEDS: Magnesium Citrate 300 ML PO (16:16)
[2019-07-08 16:55] LABS: Bedside Glucose 100 mg/dL (70-110)
[2019-07-08 21:36] LABS: Bedside Glucose 137 mg/dL (70-110)
[2019-07-08] MEDS: Mirtazapine 15 MG Tablet 7.5 MG PO (22:00)
[2019-07-08] MEDS: traZODone 50 MG Tablet PO (22:01)
[2019-07-08] MEDS: Atorvastatin Calcium 20 MG Tablet PO (22:01)
[2019-07-09] VITALS (7 sets, daily range): BP systolic 106–134; BP diastolic 51–69; PULSE 56–68; RESP 16–18; TEMP 37.1; O2SAT 97
[2019-07-09] MEDS: Glucerna Shake 120 ML LIQUID 60 ML PO ×4 (04:48→23:44)
[2019-07-09] MEDS: Menthol/Lanolin/Calamine/Znox 113 GM Tube 1 APPLIC TOPICAL ×2 (04:48→23:37)
[2019-07-09] MEDS: Metoprolol Tartrate 25 MG Tablet PO ×2 (04:49→17:23)
[2019-07-09] MEDS: APIXABAN 5 MG TABLET PO ×2 (04:49→17:23)
[2019-07-09] MEDS: Pantoprazole Sodium 40 MG Tablet PO (04:49)
[2019-07-09] MEDS: Lisinopril 10 MG Tablet PO (04:49)
[2019-07-09] MEDS: Nystatin Powder 15gm Bottle 1 APPLIC TOPICAL ×2 (04:50→23:42)
[2019-07-09] MEDS: Acetaminophen 325 MG Tablet 650 MG PO ×3 (04:54→23:41)
[2019-07-09] MEDS: Flecainide 100 MG Tablet 50 MG PO ×2 (04:56→17:22)
[2019-07-09 06:16] LABS: Bedside Glucose 113 mg/dL (70-110)
[2019-07-09] MEDS: Ipratropium/Albuterol Sulfate 3 ML AMPUL.NEB INHALATION ×2 (07:11→20:09)
[2019-07-09] MEDS: Budesonide Respules 0.5 MG/2 ML AMPUL.NEB. INHALATION ×2 (07:11→20:09)
[2019-07-09] MEDS: Albuterol 2.5 MG/3 ML VIAL.NEB. INHALATION ×2 (10:26→13:20)
[2019-07-09] MEDS: Iron Polysaccharide Complex 150 MG CAPSULE PO (10:37)
[2019-07-09] MEDS: Glimepiride 2 MG Tablet PO (10:37)
[2019-07-09 10:51] LABS: Bedside Glucose 121 mg/dL (70-110)
--- NOTE | 2019-07-09 16:20 | NURSING ---
Patient's daughter spoke with this nurse stating she is concerned about pt's needing increased frequency of breathing treatments. She would like Dr. Nieves to consult Dr Bailey for pulmonary. Also she is requesting a consult for cariology d/t ongoing CHF and dry cough. Will make Dr. Nieves aware.
[2019-07-09 16:51] LABS: Bedside Glucose 132 mg/dL (70-110)
[2019-07-09] MEDS: Senna/Docusate Sodium 1 Tablet PO (17:23)
[2019-07-09 22:26] LABS: Bedside Glucose 158 mg/dL (70-110)
[2019-07-09] MEDS: traZODone 50 MG Tablet PO (23:38)
[2019-07-09] MEDS: Mirtazapine 15 MG Tablet 7.5 MG PO (23:41)
[2019-07-09] MEDS: Atorvastatin Calcium 20 MG Tablet PO (23:41)
[2019-07-10] VITALS (10 sets, daily range): BP systolic 108–140; BP diastolic 42–73; PULSE 53–80; RESP 16–22; TEMP 36.6; O2SAT 92–96
[2019-07-10] MEDS: Polyethylene Glycol 3350 17 GM PACKET PO (05:44)
[2019-07-10] MEDS: Menthol/Lanolin/Calamine/Znox 113 GM Tube 1 APPLIC TOPICAL ×2 (05:44→21:55)
[2019-07-10] MEDS: Glucerna Shake 120 ML LIQUID 60 ML PO ×3 (05:45→17:34)
[2019-07-10] MEDS: APIXABAN 5 MG TABLET PO ×2 (05:45→17:35)
[2019-07-10] MEDS: Nystatin Powder 15gm Bottle 1 APPLIC TOPICAL ×2 (05:47→21:56)
[2019-07-10] MEDS: Pantoprazole Sodium 40 MG Tablet PO (05:48)
[2019-07-10] MEDS: Acetaminophen 325 MG Tablet 650 MG PO ×3 (05:48→21:58)
[2019-07-10] MEDS: Flecainide 100 MG Tablet 50 MG PO ×2 (05:49→17:35)
[2019-07-10 06:15] LABS: Bedside Glucose 95 mg/dL (70-110)
--- NOTE | 2019-07-10 07:01 | NURSING ---
07/10/19 0600 Metoprolol and Lisinopril held because diastolic BP low. 121/48. Left med hanging out on JUL in case patient needs it later this morning.
[2019-07-10] MEDS: Ipratropium/Albuterol Sulfate 3 ML AMPUL.NEB INHALATION ×2 (07:25→19:03)
[2019-07-10] MEDS: Budesonide Respules 0.5 MG/2 ML AMPUL.NEB. INHALATION ×2 (07:25→19:03)
[2019-07-10] MEDS: Iron Polysaccharide Complex 150 MG CAPSULE PO (09:13)
[2019-07-10] MEDS: Glimepiride 2 MG Tablet PO (09:13)
--- NOTE | 2019-07-10 09:23 | NURSING ---
DR Nieves notified, verified lopressor order from admit, stated hold if SBP <90 or DBP <55. new order to DC the DBP <55. ok to give, see communication order.
[2019-07-10] MEDS: Metoprolol Tartrate 25 MG Tablet PO ×2 (09:26→17:35)
[2019-07-10] MEDS: Lisinopril 10 MG Tablet PO (09:26)
[2019-07-10] MEDS: Albuterol 2.5 MG/3 ML VIAL.NEB. INHALATION ×2 (10:00→15:53)
--- NOTE | 2019-07-10 10:38 | NURSING ---
Addendum entered by Sacha Ruff 07/10/19 18:56: wrong pt Addendum entered by Janiya White 07/10/19 12:36: pt doing better, pt did start IV lasix today. will continue to monitor. vitals stable. Original Note: PT COMPLAINED OF DIZZINESS. VITALS DONE. REPORTED TO MAUDE GUZMAN
--- NOTE | 2019-07-10 14:26 | NURSING ---
pt back from appt with pulmonology. daughter at side.
[2019-07-10] MEDS: Senna/Docusate Sodium 1 Tablet PO (17:35)
--- NOTE | 2019-07-10 18:17 | NURSING ---
Addendum entered by Lubna Ariza 07/10/19 21:23: Dr. Nieves updated on KUB. Order for golytely 1L x1. Original Note: pt c/o constipation, Dr Nieves updated that pt having small pasty stools but not actual formed stool. new order for KUB. pt & daughter updated.
--- NOTE | 2019-07-10 18:45 | RAD_ITS ---
STUDY: X-RAY - ABDOMEN/PELVIS REASON FOR EXAM: Female, 78 years old. diarrhea TECHNIQUE: Two AP supine views of the abdomen and pelvis. COMPARISON: None. FINDINGS: Normal visualized lung bases. There is a moderate amount of colonic fecal material. There is no demonstrated free abdominal air. The visualized liver, spleen and kidneys are grossly normal in size and morphology. Normal soft tissue structures. There are diffuse degenerative changes of the visualized lumbar spine. RAD/Abdomen Single View (Portable) IMPRESSION: Moderate constipation Electronically Signed: Tim Garcia DO at 20:01 EST Tel , Service support ,
[2019-07-10 21:16] LABS: Bedside Glucose 107 mg/dL (70-110)
[2019-07-10] MEDS: Atorvastatin Calcium 20 MG Tablet PO (21:58)
[2019-07-10] MEDS: Mirtazapine 15 MG Tablet 7.5 MG PO (21:58)
[2019-07-10] MEDS: Electrolyte Solution/Peg's 4000 ML 1000 ML PO (22:01)
[2019-07-10] MEDS: traZODone 50 MG Tablet PO (22:03)
--- NOTE | 2019-07-10 22:17 | NURSING ---
Dr. Nieves updated on Blood glucose 107 and did not eat much for supper. New order to D/C yohan.
[2019-07-11 02:01] LABS: Bedside Glucose 112 mg/dL (70-110)
[2019-07-11] MEDS: Polyethylene Glycol 3350 17 GM PACKET PO (05:14)
[2019-07-11] MEDS: Acetaminophen 325 MG Tablet 650 MG PO ×3 (05:15→20:33)
[2019-07-11 05:16] VITALS: BP 117/34; PULSE 56
[2019-07-11] MEDS: APIXABAN 5 MG TABLET PO ×2 (05:16→17:05)
[2019-07-11] MEDS: Flecainide 100 MG Tablet 50 MG PO ×2 (05:16→17:07)
[2019-07-11] MEDS: Pantoprazole Sodium 40 MG Tablet PO (05:16)
[2019-07-11] MEDS: Senna/Docusate Sodium 1 Tablet PO (05:16)
[2019-07-11] MEDS: Metoprolol Tartrate 25 MG Tablet PO ×2 (05:16→17:05)
[2019-07-11] MEDS: Lisinopril 10 MG Tablet PO (05:16)
[2019-07-11] MEDS: Glucerna Shake 120 ML LIQUID 60 ML PO ×4 (05:19→20:33)
[2019-07-11] MEDS: Nystatin Powder 15gm Bottle 1 APPLIC TOPICAL ×2 (05:34→20:37)
[2019-07-11] MEDS: Menthol/Lanolin/Calamine/Znox 113 GM Tube 1 APPLIC TOPICAL ×2 (05:36→20:37)
[2019-07-11 06:20] LABS: Bedside Glucose 123 mg/dL (70-110)
[2019-07-11 07:30] VITALS: PULSE 62; RESP 19
[2019-07-11] MEDS: Ipratropium/Albuterol Sulfate 3 ML AMPUL.NEB INHALATION ×2 (07:42→18:43)
[2019-07-11] MEDS: Budesonide Respules 0.5 MG/2 ML AMPUL.NEB. INHALATION ×2 (07:42→18:42)
[2019-07-11] MEDS: Iron Polysaccharide Complex 150 MG CAPSULE PO (08:20)
[2019-07-11] MEDS: Glimepiride 2 MG Tablet PO (08:20)
[2019-07-11 11:10] LABS: Bedside Glucose 160 mg/dL (70-110)
[2019-07-11 14:05] VITALS: BP 126/34; PULSE 57; RESP 17; TEMP 36.6; O2SAT 91
[2019-07-11 17:05] VITALS: PULSE 56
[2019-07-11 18:38] VITALS: PULSE 68; RESP 18; O2SAT 95
[2019-07-11] MEDS: Mirtazapine 15 MG Tablet 7.5 MG PO (20:34)
[2019-07-11] MEDS: traZODone 50 MG Tablet PO (20:34)
[2019-07-11] MEDS: Atorvastatin Calcium 20 MG Tablet PO (20:34)
[2019-07-11 21:51] LABS: Bedside Glucose 169 mg/dL (70-110)
[2019-07-12] VITALS (8 sets, daily range): BP systolic 118–120; BP diastolic 49–67; PULSE 52–64; RESP 16–22; TEMP 36.8; O2SAT 94–95
[2019-07-12] MEDS: Glucerna Shake 120 ML LIQUID 60 ML PO ×4 (05:38→19:46)
[2019-07-12] MEDS: Metoprolol Tartrate 25 MG Tablet PO ×2 (05:39→17:07)
[2019-07-12] MEDS: Acetaminophen 325 MG Tablet 650 MG PO ×3 (05:39→19:45)
[2019-07-12] MEDS: Pantoprazole Sodium 40 MG Tablet PO (05:40)
[2019-07-12] MEDS: Flecainide 100 MG Tablet 50 MG PO ×2 (05:40→17:08)
[2019-07-12] MEDS: Lisinopril 10 MG Tablet PO (05:41)
[2019-07-12] MEDS: APIXABAN 5 MG TABLET PO ×2 (05:41→17:08)
[2019-07-12] MEDS: Menthol/Lanolin/Calamine/Znox 113 GM Tube 1 APPLIC TOPICAL ×2 (05:44→19:46)
[2019-07-12] MEDS: Nystatin Powder 15gm Bottle 1 APPLIC TOPICAL ×2 (05:44→19:48)
[2019-07-12 06:16] LABS: Bedside Glucose 133 mg/dL (70-110)
[2019-07-12] MEDS: Budesonide Respules 0.5 MG/2 ML AMPUL.NEB. INHALATION ×2 (07:16→18:35)
[2019-07-12] MEDS: Ipratropium/Albuterol Sulfate 3 ML AMPUL.NEB INHALATION ×2 (07:16→18:25)
[2019-07-12 08:04] LABS: Absolute Lymphocyte Count 0.83 X10^3/uL (0.83-4.51); Basophil# 0.04 X10^3/uL; Basophil% 0.6 % (0-1); Eosinophil# 0.15 X10^3/uL; Eosinophils% 2.2 % (0-5); Hematocrit 28.2 % (37-47); Hemoglobin 8.6 g/dL (12.0-15.0); Lymphocyte # 0.83 X10^3/ul (4.0); Lymphocyte % 12.2 % (19-41); Mean Corp Hgb Conc 30.5 g/dL (32-36); Mean Corpuscular Hgb 32.2 pg (27.0-32.0); Mean Corpuscular Volume 105.6 fL (81-99); Mean Platelet Vol. 10.4 fl (6.2-12.0); Monocyte# 0.73 X10^3/uL; Monocyte% 10.7 % (0-10); NRBC Flagged by Analyzer 0 % (0-5); Neutrophil # 5.03 X10^3/uL (2.7-7.7); POSITIVE MORPHOLOGY YES; Platelet Count 278 K/mm3 (150-450); RBC Distribution Width CV 17.7 % (11.6-14.6); RBC Distribution Width SD 68.5 fl (35.1-43.9); Red Blood Count 2.67 M/mm3 (4.2-5.4); White Blood Count 6.8 K/mm3 (4.4-11.0)
[2019-07-12 08:08] LABS: Differential Indicated SCAN CRITERIA MET
[2019-07-12 08:20] LABS: Anion Gap 6 (5-15); BUN 51 mg/dL (7-18); BUN/Creat Ratio 24.5 RATIO (10-20); Calcium,Total 8.3 mg/dL (8.5-10.1); Chloride 103 mmol/L (98-107); Creatinine, Serum 2.08 mg/dL (0.55-1.02); EST Glomerular Filtration Rate 24 mL/min (>60); Est Glom Filt Rate - Afr Amer 30 mL/min (>60); Estimated Creatinine Clearance 16.55 ml/min; Glucose 141 mg/dL (74-106); Potassium 4.4 mmol/L (3.5-5.1); Sodium Level 137 mmol/L (136-145)
[2019-07-12] MEDS: Iron Polysaccharide Complex 150 MG CAPSULE PO (08:36)
[2019-07-12] MEDS: Glimepiride 2 MG Tablet PO (08:36)
[2019-07-12 09:37] LABS: Anisocytosis 1+
[2019-07-12] MEDS: 0.9% Normal Saline 1,000 ML 75 ML IV ×2 (10:30→23:33)
--- NOTE | 2019-07-12 14:38 | NURSING ---
Notified Dr. Nieves of patient's request for cough medication. Received order for Tessalon Perle 200mg TID PRN, order repeated bach.
[2019-07-12] MEDS: Benzonatate 100 MG Capsule 200 MG PO ×2 (16:14→21:24)
[2019-07-12] MEDS: Albuterol 2.5 MG/3 ML VIAL.NEB. INHALATION (16:17)
[2019-07-12] MEDS: Senna/Docusate Sodium 1 Tablet PO (17:08)
[2019-07-12] MEDS: traZODone 50 MG Tablet PO (19:45)
[2019-07-12] MEDS: Mirtazapine 15 MG Tablet 7.5 MG PO (19:45)
[2019-07-12] MEDS: Atorvastatin Calcium 20 MG Tablet PO (19:45)
[2019-07-12 21:01] LABS: Bedside Glucose 195 mg/dL (70-110)
--- NOTE | 2019-07-12 21:26 | NURSING ---
2119- Pt short of breath with exertion when transferring back to bed. SaO2 95% on room air. Lung sounds clear in upper lobes and diminished in bases. SOB resolved once transfer complete. PRN tessalon perles administered per pt's request for cough.
[2019-07-13] VITALS (8 sets, daily range): BP systolic 96–142; BP diastolic 26–57; PULSE 51–64; RESP 16–18; TEMP 36.6–36.8; O2SAT 92–96
[2019-07-13] MEDS: Acetaminophen 325 MG Tablet 650 MG PO ×3 (05:58→19:47)
[2019-07-13] MEDS: Flecainide 100 MG Tablet 50 MG PO ×2 (05:58→17:48)
[2019-07-13] MEDS: Metoprolol Tartrate 25 MG Tablet PO ×2 (05:59→17:48)
[2019-07-13] MEDS: APIXABAN 5 MG TABLET PO ×2 (05:59→17:48)
[2019-07-13] MEDS: Pantoprazole Sodium 40 MG Tablet PO (06:08)
[2019-07-13] MEDS: Menthol/Lanolin/Calamine/Znox 113 GM Tube 1 APPLIC TOPICAL ×2 (06:08→19:50)
[2019-07-13] MEDS: Nystatin Powder 15gm Bottle 1 APPLIC TOPICAL ×2 (06:08→19:50)
[2019-07-13 06:16] LABS: Bedside Glucose 147 mg/dL (70-110)
[2019-07-13 06:55] LABS: Anion Gap 4 (5-15); BUN 55 mg/dL (7-18); BUN/Creat Ratio 23.8 RATIO (10-20); Calcium,Total 8.3 mg/dL (8.5-10.1); Chloride 103 mmol/L (98-107); Creatinine, Serum 2.31 mg/dL (0.55-1.02); EST Glomerular Filtration Rate 22 mL/min (>60); Est Glom Filt Rate - Afr Amer 26 mL/min (>60); Glucose 145 mg/dL (74-106); Potassium 4.5 mmol/L (3.5-5.1); Sodium Level 138 mmol/L (136-145)
[2019-07-13] MEDS: Ipratropium/Albuterol Sulfate 3 ML AMPUL.NEB INHALATION ×2 (07:03→20:10)
[2019-07-13] MEDS: Budesonide Respules 0.5 MG/2 ML AMPUL.NEB. INHALATION ×2 (07:04→20:10)
[2019-07-13] MEDS: Glimepiride 2 MG Tablet PO (08:41)
[2019-07-13] MEDS: Iron Polysaccharide Complex 150 MG CAPSULE PO (08:41)
--- NOTE | 2019-07-13 09:40 | RAD_ITS ---
STUDY: X-RAY CHEST REASON FOR EXAM: Female, 78 years old. SOB TECHNIQUE: PA and lateral views of the chest. COMPARISON: FINDINGS: Continued moderate right pleural effusion with right lower lobe atelectasis. There is moderate cardiac enlargement. Normal mediastinum and analisa. Normal visualized pulmonary arteries. Normal visualized aortic arch and descending thoracic aorta. Normal visualized thoracic spine. Normal visualized ribs, clavicles, and shoulders. There is no demonstrated abnormality of the visualized soft tissue structures of the upper abdomen. RAD/Chest PA and Lateral IMPRESSION: No change from 07/07/2019. Electronically Signed: Luis Giang MD at 15:14 EST Tel , Service support ,
[2019-07-13] MEDS: Alendronate Sodium 70 MG Tablet PO (11:29)
[2019-07-13] MEDS: Glucerna Shake 120 ML LIQUID 60 ML PO ×3 (11:29→19:48)
[2019-07-13] MEDS: Albuterol 2.5 MG/3 ML VIAL.NEB. INHALATION (13:53)
[2019-07-13 16:59] LABS: Urine Sodium 73 mmol/L (Not Establ.)
[2019-07-13] MEDS: Senna/Docusate Sodium 1 Tablet PO (17:48)
[2019-07-13] MEDS: Mirtazapine 15 MG Tablet 7.5 MG PO (19:46)
--- NOTE | 2019-07-13 19:46 | NURSING ---
Addendum entered by Renata Shepherd 07/13/19 20:35: 2035- Dr. Nieves updated on troponin results and 20mL hematuria output since velázquez placed. New orders received to hold eliquis. Original Note: 1934- indwelling velázquez catheter inserted without difficulty per physician order. pt tolerated well. catheter draining a small amount of bloody urine.
[2019-07-13] MEDS: Atorvastatin Calcium 20 MG Tablet PO (19:47)
[2019-07-13] MEDS: traZODone 50 MG Tablet PO (19:48)
[2019-07-13 21:06] LABS: Bedside Glucose 199 mg/dL (70-110)
[2019-07-14] VITALS (7 sets, daily range): BP systolic 96–132; BP diastolic 52–57; PULSE 56–71; RESP 16–19; TEMP 36.6–36.9; O2SAT 90–93
[2019-07-14 05:43] LABS: Absolute Lymphocyte Count 1.04 X10^3/uL (0.83-4.51); Absolute Neutrophil Count 5.2 X10^3/uL (2.0-7.7); Basophil# 0.03 X10^3/uL; Basophil% 0.4 % (0-1); Eosinophil# 0.16 X10^3/uL; Eosinophils% 2.2 % (0-5); Hemoglobin 8.1 g/dL (12.0-15.0); Lymphocyte # 1.04 X10^3/ul (4.0); Lymphocyte % 14.4 % (19-41); Mean Corp Hgb Conc 28.9 g/dL (32-36); Mean Corpuscular Hgb 30.6 pg (27.0-32.0); Mean Corpuscular Volume 105.7 fL (81-99); Mean Platelet Vol. 9.9 fl (6.2-12.0); Monocyte# 0.72 X10^3/uL; NRBC Flagged by Analyzer 0 % (0-5); Neutrophil # 5.22 X10^3/uL (2.7-7.7); Neutrophil % 72.6 % (47-70); POSITIVE MORPHOLOGY YES; Platelet Count 297 K/mm3 (150-450); RBC Distribution Width CV 17.5 % (11.6-14.6); RBC Distribution Width SD 68.2 fl (35.1-43.9); Red Blood Count 2.65 M/mm3 (4.2-5.4); White Blood Count 7.2 K/mm3 (4.4-11.0)
[2019-07-14] MEDS: Pantoprazole Sodium 40 MG Tablet PO (05:44)
[2019-07-14] MEDS: Acetaminophen 325 MG Tablet 650 MG PO ×3 (05:45→20:20)
[2019-07-14] MEDS: Metoprolol Tartrate 25 MG Tablet PO ×2 (05:45→18:06)
[2019-07-14 05:46] LABS: Differential Indicated SCAN CRITERIA MET
[2019-07-14] MEDS: Flecainide 100 MG Tablet 50 MG PO ×2 (05:46→18:04)
[2019-07-14] MEDS: Menthol/Lanolin/Calamine/Znox 113 GM Tube 1 APPLIC TOPICAL ×2 (06:02→20:21)
[2019-07-14] MEDS: Nystatin Powder 15gm Bottle 1 APPLIC TOPICAL ×2 (06:02→20:22)
[2019-07-14 06:04] LABS: Anion Gap 6 (5-15); BUN 57 mg/dL (7-18); BUN/Creat Ratio 24.7 RATIO (10-20); Calcium,Total 8.6 mg/dL (8.5-10.1); Chloride 100 mmol/L (98-107); Creatinine, Serum 2.31 mg/dL (0.55-1.02); EST Glomerular Filtration Rate 22 mL/min (>60); Est Glom Filt Rate - Afr Amer 26 mL/min (>60); Glucose 164 mg/dL (74-106); Potassium 4.5 mmol/L (3.5-5.1); Sodium Level 135 mmol/L (136-145)
[2019-07-14 06:06] LABS: Bedside Glucose 154 mg/dL (70-110)
[2019-07-14 06:18] LABS: Differential Comment SCANNED; Hypochromasia 1+; Macrocytosis 2+; Microcytosis 1+; Schistocytes RARE; Target Cells RARE
[2019-07-14] MEDS: Budesonide Respules 0.5 MG/2 ML AMPUL.NEB. INHALATION ×2 (07:25→19:15)
[2019-07-14] MEDS: Ipratropium/Albuterol Sulfate 3 ML AMPUL.NEB INHALATION ×2 (07:25→19:15)
[2019-07-14] MEDS: Iron Polysaccharide Complex 150 MG CAPSULE PO (09:07)
[2019-07-14] MEDS: Glimepiride 2 MG Tablet PO (09:08)
[2019-07-14] MEDS: Albuterol 2.5 MG/3 ML VIAL.NEB. INHALATION (09:54)
[2019-07-14] MEDS: 0.9% Normal Saline 1,000 ML 75 ML IV (13:15)
[2019-07-14] MEDS: 0.9% Saline Lock 10 ML Syringe IV (13:15)
--- NOTE | 2019-07-14 13:28 | NURSING ---
Addendum entered by Janiya White 07/14/19 17:07: daughter here and updated on IVF Original Note: dr Pulido in to see pt, new order for 0.9 NS @ 75cc/hr x1 liter. pt updated.
--- NOTE | 2019-07-14 16:50 | CON.PCM_ITS ---
Consultation - Renal 07/14/19 PCP/ Referring MD: Requesting physician: Jack Nieves MD Primary care physician: Del Alicia MD Reason for Consultation:: CARLENE on CKD - History of Present Illness History of Present Illness: The patient is a 78 year old F admitted to TCU on 06/20/19 for rehab following hospitalization at [facility] 06/16 to 06/20/19 for hyperkalemia with wide QRS complex on ECG. She was confused, unresponsive s/p CPR and intubated for cardiogenic shock with potassium of 7.5. Creatinine was 2.43 on 06/16/19 improved to 1.62 on 06/20/19 prior to transfer to TCU. Lasix, Lisinopril, potassium supplements and aldactone were held during her hospitalization and iv fluids were initiated. Hyperkalemia resolved with medical management. Nephrology was not involved with her care during her hospitalization. She was on Eliquis that was held for elevated INR. She was on doxycycline for MRSA right ankle during her stay at [facility]. No echocardiogram available. She thinks she may have had one 2 months ago during her hospitalization at [place]. She admits to poor appetite without nausea or vomiting. She has a nonproductive cough. Denies fever, chills. No chest pain or SOB. She is able to walk with a walker. She had a moderate right pleural effusions on CXR from 07/13/19. Renal US from 09/2018 essentially unremarkable. Creatinine improve to 1.23 on 06/27/19 then increased to 1.48 on 07/05/2019, 2.08 on 07/12/19, now at 2.3. Straight cathed Urine c/s on 06/27/19 positive for UTI with Ecoli and Proteus. She had velázquez placed yesterday with poor urine output. She has gross hematuria and Eliquis discontinued. She has constipation then diarrhea. She has a history of a heart murmur since according to the patient. She has not seen a roustabout pusher in the past but did see Dr. Rivera for urinary incontinence and OAB. BP is low with symptoms of lightheadedness. Denies syncope. No recent iv contrast exposure. PMH for MSSA right foot infection in 2019 in [facility] treated with iv nafcillin then to [facility], subsequently to [facility] for rehabilitation. PCP Dr. Adhikari. - Allergies Allergies: Allergies Penicillins [PCN] Allergy (Verified 07/14/19 09:52) Other shellfish derived Allergy (Verified 07/14/19 09:52) Other - Current Medications Current Medications: Current Medications Acetaminophen (Tylenol) 650 mg PO TID [facility] Last Admin: 07/14/19 14:05 Dose: 650 mg Documented by: Albuterol Sulfate (Ventolin Aerosols) 2.5 mg INHALATION Q2H PRN PRN PRN Reason: WHEEZING Last Admin: 07/14/19 09:54 Dose: 2.5 mg Documented by: Albuterol/Ipratropium (Duoneb) 3 ml INHALATION BID.RT [facility] Last Admin: 07/14/19 07:25 Dose: 3 ml Documented by: Alendronate Sodium (Fosamax) 70 mg PO Corral@1000 [facility] Last Admin: 07/13/19 11:29 Dose: 70 mg Documented by: Atorvastatin Calcium (Lipitor) 20 mg PO QHS [facility] Last Admin: 07/13/19 19:47 Dose: 20 mg Documented by: Benzonatate (Tessalon Perle) 200 mg PO TID PRN PRN PRN Reason: COUGH Last Admin: 07/12/19 21:24 Dose: 200 mg Documented by: Bisacodyl (Dulcolax) 10 mg PO DAILY PRN PRN Reason: Constipation Budesonide (Pulmicort Aerosol) 0.5 mg INHALATION Q12H.RT [facility] Last Admin: 07/14/19 07:25 Dose: 0.5 mg Documented by: Calamine/Phenol (Calmoseptine Ointment) 1 applic TOPICAL 0600,2200 [facility]; Protocol Last Admin: 07/14/19 06:02 Dose: 1 applicatio Documented by: Cholecalciferol (Vitamin D) 1,000 unit PO DAILY [facility] Last Admin: 07/14/19 05:46 Dose: 1,000 unit Documented by: Flecainide Acetate (Tambocor) 50 mg PO BID [facility] Last Admin: 07/14/19 05:46 Dose: 50 mg Documented by: Glimepiride (Amaryl) 2 mg PO DAILY@0800 [facility] Last Admin: 07/14/19 09:08 Dose: 2 mg Documented by: Glucagon () 1 mg IM .X1 PRN PRN Reason: Hypoglycemia Dextrose (Dextrose 10%-Water) 250 mls @ 999 mls/hr IV .Q16M PRN; Protocol PRN Reason: HYPOGLYCEMIA Sodium Chloride () 1,000 mls @ 75 mls/hr IV .[id number] [facility] Stop: 07/15/19 01:59 Last Admin: 07/14/19 13:15 Dose: 75 mls/hr Documented by: Metoprolol Tartrate (Lopressor (Beta Lucina)) 25 mg PO BID [facility] Last Admin: 07/14/19 05:45 Dose: 25 mg Documented by: Mirtazapine (Remeron) 7.5 mg PO QHS [facility] Last Admin: 07/13/19 19:46 Dose: 7.5 mg Documented by: Multi-Ingredient Cream (Eucerin) 1 applic TOPICAL 2199 [facility]; Protocol Last Admin: 07/13/19 19:51 Dose: 1 applicatio Documented by: Nutritional Formula (Lactose Free) (Glucerna Shake) 60 ml PO 4X/DAY [facility] Last Admin: 07/14/19 11:24 Dose: Not Given Documented by: Nystatin (Mycostatin Powder) 1 applic TOPICAL 0600,2200 [facility]; Protocol Last Admin: 07/14/19 06:02 Dose: 1 applicatio Documented by: Pantoprazole Sodium (Protonix) 40 mg PO DAILY [facility] Last Admin: 07/14/19 05:44 Dose: 40 mg Documented by: Polyethylene Glycol (Miralax) 17 gm PO DAILY [facility] Last Admin: 07/14/19 05:47 Dose: Not Given Documented by: Polysaccharide Iron Complex (Ferrex 150) [facility] Last Admin: 07/14/19 09:07 Dose: 150 mg Documented by: Senna/Docusate Sodium (Senokot-S, Rachel-Colace) 1 tablet PO BID [facility] Last Admin: 07/14/19 05:47 Dose: Not Given Documented by: Sodium Chloride () 10 - 40 ml IV UD PRN PRN Reason: SALINE FLUSH Last Admin: 07/14/19 13:15 Dose: 10 ml Documented by: Sodium Chloride () 10 - 40 ml IV UD PRN PRN Reason: SALINE FLUSH Trazodone HCl (Desyrel) 50 mg PO QHS [facility] Last Admin: 07/13/19 19:48 Dose: 50 mg Documented by: - Past Medical History Past Medical History (Chronic Problems): Chronic Problems (Last Updated 07/14/19 @ 09:53 by Alessandra Valdivia) History of respiratory failure (Chronic) extubated 06/18/2019 @ [facility] Paroxysmal atrial fibrillation (Chronic) Sick sinus syndrome (Chronic) Edema (Chronic) Anticoagulant long-term use (Chronic) Anemia, unspecified (Chronic) CKD (chronic kidney disease) (Chronic) Essential hypertension (Chronic) DM2 (diabetes mellitus, type 2) (Chronic) COPD (chronic obstructive pulmonary disease) (Chronic) GERD (gastroesophageal reflux disease) (Chronic) Methicillin resistant Staph aureus culture positive (Chronic) Cellulitis of right ankle (Chronic) Osteoporosis (Chronic) Anxiety (Chronic) GERD (gastroesophageal reflux disease) (Chronic) Insomnia (Chronic) Hyperlipidemia (Chronic) - Past Surgical History Surgical History: noncontributory - Social History Smoking Status: Former smoker Alcohol: None Drugs: None - Family History Maternal History Items: No pertinent history Paternal History Items: No pertinent history Review of Systems Constitutional: Reports: Anorexia, Weakness. Denies: Chills, Fever HEENT: Denies: Nasal bleeding, Sinus Congestion Cardiovascular: Reports: Edema, - - lightheaded. Denies: Chest Pain, Syncope Respiratory: Reports: Cough. Denies: Hemoptysis, Shortness of Breath, Sputum production Gastrointestinal: Reports: Constipation, Diarrhea. Denies: Abdominal Pain, Hematemesis, Hematochezia, Nausea, Melena, Vomiting Genitourinary: Reports: Hematuria, Incontinence. Denies: Dysuria Musculoskeletal: Reports: - - leg edema, rt ankle infection Skin: Reports: Wounds - rt ankle Neurological: Reports: - - debilitated. Denies: Tremor, Seizures Psychiatric: Denies: Anxiety, Depression Endocrine: Reports: - - diabetes diet controlled Hematologic/ Lymphatic: Reports: Anemia Patient Problems: Active and Suspected Problems (Last Updated 07/14/19 @ 09:53 by Alessandra Valdivia) Cardiogenic shock (Acute) Debility (Acute) - Physical Exam Vitals/I&O's: Vital Signs Temp Pulse Resp BP Pulse Ox 97.8 F 56 L 16 132/57 H 93 07/14/19 13:43 07/14/19 13:43 07/14/19 13:43 07/14/19 13:43 07/14/19 13:43 Oxygen Flow Rate (L/min) 0.5 Oxygen Delivery Method Room Air Weight: 113.426 kg Body Mass Index (BMI) 47.8 Finger Stick Blood Glucose 211 Intake and Output for Last 24 Hours 07/12/19 07/13/19 07/14/19 23:59 23:59 23:59 Intake Total 1458.75 / 1458.75 1142.5 / 1142.5 360 / 360 Output Total 125 / 125 Balance 1458.75 / 1458.75 1142.5 / 1142.5 235 / 235 General: Alert, Oriented x3, Cooperative, No apparent distress HEENT: PERRLA, EOMI Oral: Dry Mucosa Neck: Supple Lungs: Clear to auscultation, Diminished Cardiovascular: Irregular Rate, Murmur Abdomen: Bowel Sounds Present, Soft, Non Tender, Non-Distended Extremities: - - legs wrapped, unable to assess Skin: No rashes Musculoskeletal: No Muscle Wasting, - - gen weakness Neurological: Cranial nerves II-XII grossly intact Psych/Mental Status: Normal Affect, Alert and oriented to time, place, person, mood and affect Laboratory Results 07/13/19 16:35: Ur Random Sodium 73 07/13/19 16:35: Urine Creatinine 169.00 07/13/19 19:05: Troponin I < 0.015 07/13/19 21:01: POC Glucose 199 H 07/14/19 05:15: Sodium 135 L, Potassium 4.5, Chloride 100, Carbon Dioxide 29.0, Anion Gap 6, BUN 57 H, Creatinine 2.31 H, Estim Creat Clear Calc 14.90, Est GFR (MDRD) Af Amer 26 L, Est GFR (MDRD) Non-Af 22 L, BUN/Creatinine Ratio 24.7 H, Glucose 164 H, Calcium 8.6 07/14/19 05:15: WBC 7.2, RBC 2.65 L, Hgb 8.1 L, Hct 28.0 L, MCV 105.7 H, MCH 30.6, MCHC 28.9 L, RDW Std Deviation 68.2 H, RDW Coeff of Alicia 17.5 H, Plt Count 297, MPV 9.9, Immature Gran % (Auto) 0.400, Neut % (Auto) 72.6 H, Lymph % (Auto) 14.4 L, [place] % (Auto) 10.0, Eos % (Auto) 2.2, Baso % (Auto) 0.4, Absolute Neuts (auto) 5.2, Absolute Lymphs (auto) 1.04, Nucleated RBC % 0, Differential Comment SCANNED, Hypochromasia 1+, Microcytosis 1+, Macrocytosis 2+, Target Cells RARE, Schistocytes RARE 07/14/19 05:57: POC Glucose 154 H Clinical Impression(s) from Imaging Studies Chest X-Ray 07/07/19 18:30 IMPRESSION: Cardiomegaly. Right basilar effusion. Slight diffuse vascular congestion Electronically Signed: Tim Garcia DO at 19:45 EST Tel , Service support , KUB X-Ray 07/08/19 11:43 IMPRESSION: No evidence of small bowel obstruction. No gaseous dilated loops of bowel. Some fecal retention throughout the colon. No acute findings Electronically Signed: Tim Garcia DO at 15:32 EST Tel , Service support , KUB X-Ray 07/10/19 18:45 IMPRESSION: Moderate constipation Electronically Signed: Tim Garcia DO at 20:01 EST Tel , Service support , Chest X-Ray 07/13/19 09:40 IMPRESSION: No change from 07/07/2019. Electronically Signed: Luis Giang MD at 15:14 EST Tel , Service support , Current Medications Acetaminophen (Tylenol) 650 mg PO TID NABIL Last Admin: 07/14/19 14:05 Dose: 650 mg Documented by: Albuterol Sulfate (Ventolin Aerosols) 2.5 mg INHALATION Q2H PRN PRN PRN Reason: WHEEZING Last Admin: 07/14/19 09:54 Dose: 2.5 mg Documented by: Albuterol/Ipratropium (Duoneb) 3 ml INHALATION BID.RT [facility] Last Admin: 07/14/19 07:25 Dose: 3 ml Documented by: Alendronate Sodium (Fosamax) 70 mg PO Corral@1000 [facility] Last Admin: 07/13/19 11:29 Dose: 70 mg Documented by: Atorvastatin Calcium (Lipitor) 20 mg PO QHS [facility] Last Admin: 07/13/19 19:47 Dose: 20 mg Documented by: Benzonatate (Tessalon Perle) 200 mg PO TID PRN PRN PRN Reason: COUGH Last Admin: 07/12/19 21:24 Dose: 200 mg Documented by: Bisacodyl (Dulcolax) 10 mg PO DAILY PRN PRN Reason: Constipation Budesonide (Pulmicort Aerosol) 0.5 mg INHALATION Q12H.RT [facility] Last Admin: 07/14/19 07:25 Dose: 0.5 mg Documented by: Calamine/Phenol (Calmoseptine Ointment) 1 applic TOPICAL 0600,2200 [facility]; Protocol Last Admin: 07/14/19 06:02 Dose: 1 applicatio Documented by: Cholecalciferol (Vitamin D) 1,000 unit PO DAILY [facility] Last Admin: 07/14/19 05:46 Dose: 1,000 unit Documented by: Flecainide Acetate (Tambocor) 50 mg PO BID [facility] Last Admin: 07/14/19 05:46 Dose: 50 mg Documented by: Glimepiride (Amaryl) 2 mg PO DAILY@0800 [facility] Last Admin: 07/14/19 09:08 Dose: 2 mg Documented by: Glucagon () 1 mg IM .X1 PRN PRN Reason: Hypoglycemia Dextrose (Dextrose 10%-Water) 250 mls @ 999 mls/hr IV .Q16M PRN; Protocol PRN Reason: HYPOGLYCEMIA Sodium Chloride () 1,000 mls @ 75 mls/hr IV .[id number] [facility] Stop: 07/15/19 01:59 Last Admin: 07/14/19 13:15 Dose: 75 mls/hr Documented by: Metoprolol Tartrate (Lopressor (Beta Lucina)) 25 mg PO BID [facility] Last Admin: 07/14/19 05:45 Dose: 25 mg Documented by: Mirtazapine (Remeron) 7.5 mg PO QHS [facility] Last Admin: 07/13/19 19:46 Dose: 7.5 mg Documented by: Multi-Ingredient Cream (Eucerin) 1 applic TOPICAL 2200 [facility]; Protocol Last Admin: 07/13/19 19:51 Dose: 1 applicatio Documented by: Nutritional Formula (Lactose Free) (Glucerna Shake) 60 ml PO 4X/DAY [facility] Last Admin: 07/14/19 11:24 Dose: Not Given Documented by: Nystatin (Mycostatin Powder) 1 applic TOPICAL 0600,2200 [facility]; Protocol Last Admin: 07/14/19 06:02 Dose: 1 applicatio Documented by: Pantoprazole Sodium (Protonix) 40 mg PO DAILY [facility] Last Admin: 07/14/19 05:44 Dose: 40 mg Documented by: Polyethylene Glycol (Miralax) 17 gm PO DAILY [facility] Last Admin: 07/14/19 05:47 Dose: Not Given Documented by: Polysaccharide Iron Complex (Ferrex 150) 150 mg PO DAILYCM [facility] Last Admin: 07/14/19 09:07 Dose: 150 mg Documented by: Senna/Docusate Sodium (Senokot-S, Rachel-Colace) 1 tablet PO BID [facility] Last Admin: 07/14/19 05:47 Dose: Not Given Documented by: Sodium Chloride () 10 - 40 ml IV UD PRN PRN Reason: SALINE FLUSH Last Admin: 07/14/19 13:15 Dose: 10 ml Documented by: Sodium Chloride () 10 - 40 ml IV UD PRN PRN Reason: SALINE FLUSH Trazodone HCl (Desyrel) 50 mg PO QHS [facility] Last Admin: 07/13/19 19:48 Dose: 50 mg Documented by: Assessment/Plan All Active Problems (Last Updated 07/14/19 @ 09:53 by Alessandra Valdivia) Cardiogenic shock (Acute) Bradycardia (Acute) Renal failure (ARF), acute on chronic (Acute) Acute hyperkalemia (Acute) Debility (Acute) Unresponsiveness (Resolved) History of respiratory failure with hypo (Resolved) Anemia (Ruled-out) 1. CARLENE on CKD stage 3. Baseline creatinine 1.2 on 06/27/19 increased to 2.3 today. Poor oral intake, decreased urine output with hypotension. FeNa >1% to suggest ischemic ATN. Maintain SBP >100. Gentle hydration. Velázquez with gross hematuria. Eliquis discontinued. Watch for urine retention from clots. Renal US September 2018 unremarkable. 2. Hx UTI on 06/27/19. 3. s/p CPR due to hyperkalemia 06/16/19. Potassium stable 4. DM type 2 on amaryl 5. Heart murmur. Suggest echo to evaluate for pulmonary hypertension, valvular disease. Will obtain records from [facility] to see if echo done in the past. No echo from recent hospitalization in [facility] 6. Gross hematuria on blood thinner s/p velázquez placement to monitor strict I/O's. 7. Chronic moderate right pleural effusion. Oxygenation stable on RA
[2019-07-14] MEDS: Glucerna Shake 120 ML LIQUID 60 ML PO (18:02)
--- NOTE | 2019-07-14 18:12 | NURSING ---
pt coughing from eating a hotdog and threw it up. stated she felt better . this nurse came back 30 mins later to give pills and pt started coughing again. Vitals done, listened to lungs,[front diminished,back diminished with right lower expiratory wheeze. respiratory called for treatment, mark gottlieb aware.
[2019-07-14] MEDS: Mirtazapine 15 MG Tablet 7.5 MG PO (20:20)
[2019-07-14] MEDS: traZODone 50 MG Tablet PO (20:20)
[2019-07-14] MEDS: Atorvastatin Calcium 20 MG Tablet PO (20:20)
[2019-07-14 22:16] LABS: Bedside Glucose 135 mg/dL (70-110)
[2019-07-15] MEDS: Benzonatate 100 MG Capsule 200 MG PO ×2 (02:49→17:26)
--- NOTE | 2019-07-15 05:05 | NURSING ---
Only 200ml bright red urine from catheter this shift. Bladder scan for 0ml. Pt denied pain or discomfort at this time. Will update Dr. Nieves.
[2019-07-15] MEDS: Menthol/Lanolin/Calamine/Znox 113 GM Tube 1 APPLIC TOPICAL ×2 (05:43→21:10)
[2019-07-15] MEDS: Acetaminophen 325 MG Tablet 650 MG PO ×3 (05:44→21:54)
[2019-07-15] MEDS: Pantoprazole Sodium 40 MG Tablet PO (05:44)
[2019-07-15 05:45] VITALS: BP 111/46; PULSE 55
[2019-07-15] MEDS: Metoprolol Tartrate 25 MG Tablet PO ×2 (05:45→17:23)
[2019-07-15] MEDS: Flecainide 100 MG Tablet 50 MG PO (05:45)
[2019-07-15] MEDS: Nystatin Powder 15gm Bottle 1 APPLIC TOPICAL ×2 (05:47→21:11)
[2019-07-15 06:11] LABS: Bedside Glucose 126 mg/dL (70-110)
[2019-07-15 06:12] LABS: Anion Gap 6 (5-15); BUN 61 mg/dL (7-18); BUN/Creat Ratio 26.9 RATIO (10-20); Calcium,Total 8.6 mg/dL (8.5-10.1); Chloride 101 mmol/L (98-107); Creatinine, Serum 2.27 mg/dL (0.55-1.02); EST Glomerular Filtration Rate 22 mL/min (>60); Est Glom Filt Rate - Afr Amer 27 mL/min (>60); Estimated Creatinine Clearance 15.16 ml/min; Glucose 128 mg/dL (74-106); Potassium 4.4 mmol/L (3.5-5.1); Sodium Level 136 mmol/L (136-145)
[2019-07-15 07:18] VITALS: PULSE 53; RESP 18; O2SAT 89
[2019-07-15] MEDS: Ipratropium/Albuterol Sulfate 3 ML AMPUL.NEB INHALATION ×2 (07:18→18:20)
[2019-07-15] MEDS: Budesonide Respules 0.5 MG/2 ML AMPUL.NEB. INHALATION ×2 (07:18→18:20)
[2019-07-15] MEDS: Iron Polysaccharide Complex 150 MG CAPSULE PO (08:42)
[2019-07-15] MEDS: Glimepiride 2 MG Tablet PO (08:42)
--- NOTE | 2019-07-15 16:01 | NURSING ---
pt returned from cardiology appt with orders to DC lisinopril and flecainide, decrease eliquis 2.5 BID. Daughter with many requests regarding blood transfusion, atb oint for small scratch on rt side of face, peeling skin on feet, requesting that aerosols be increased in frequency, thoracentesis for fluid removal of lung. will update dr justice of these requests and [facility] recommendations.
[2019-07-15 16:23] VITALS: BP 159/73; PULSE 54; RESP 14; TEMP 36.6; O2SAT 96
[2019-07-15 17:23] VITALS: PULSE 56
[2019-07-15] MEDS: BENZOCAINE/MENTHOL 1 LOZENGE MUCOUS MEM (17:26)
[2019-07-15 18:20] VITALS: PULSE 57; RESP 18
[2019-07-15 20:45] VITALS: RESP 18
[2019-07-15] MEDS: BACITRACIN 15 GM Tube 1 APPLIC TOPICAL (20:58)
[2019-07-15] MEDS: traZODone 50 MG Tablet PO (21:10)
[2019-07-15] MEDS: Atorvastatin Calcium 20 MG Tablet PO (21:11)
[2019-07-15] MEDS: Mirtazapine 15 MG Tablet 7.5 MG PO (21:11)
[2019-07-15] MEDS: 0.9% Normal Saline 1,000 ML 75 ML IV (21:14)
[2019-07-15] MEDS: Glucerna Shake 120 ML LIQUID 60 ML PO (21:16)
[2019-07-15 21:45] LABS: Bedside Glucose 226 mg/dL (70-110)
[2019-07-16] VITALS (7 sets, daily range): BP systolic 135–159; BP diastolic 35–61; PULSE 54–63; RESP 18–28; TEMP 36.4–36.7; O2SAT 91–96
--- NOTE | 2019-07-16 02:39 | NURSING ---
Pt requested cough medicine. After getting medicine and returning to patient, patient was sleeping comfortably. This RN did not disturb patient.
[2019-07-16] MEDS: Pantoprazole Sodium 40 MG Tablet PO (05:54)
[2019-07-16] MEDS: Acetaminophen 325 MG Tablet 650 MG PO ×3 (05:54→20:55)
[2019-07-16] MEDS: Glucerna Shake 120 ML LIQUID 60 ML PO ×3 (05:55→20:53)
[2019-07-16] MEDS: Nystatin Powder 15gm Bottle 1 APPLIC TOPICAL ×2 (05:56→20:53)
[2019-07-16] MEDS: BACITRACIN 15 GM Tube 1 APPLIC TOPICAL ×2 (05:57→17:31)
[2019-07-16] MEDS: Menthol/Lanolin/Calamine/Znox 113 GM Tube 1 APPLIC TOPICAL ×2 (05:57→20:54)
[2019-07-16 05:59] LABS: Absolute Lymphocyte Count 1.15 X10^3/uL (0.83-4.51); Absolute Neutrophil Count 4.5 X10^3/uL (2.0-7.7); Basophil# 0.04 X10^3/uL; Basophil% 0.6 % (0-1); Eosinophil# 0.17 X10^3/uL; Eosinophils% 2.6 % (0-5); Hematocrit 29.5 % (37-47); Hemoglobin 8.7 g/dL (12.0-15.0); Lymphocyte # 1.15 X10^3/ul (4.0); Lymphocyte % 17.7 % (19-41); Mean Corp Hgb Conc 29.5 g/dL (32-36); Mean Corpuscular Hgb 31.4 pg (27.0-32.0); Mean Corpuscular Volume 106.5 fL (81-99); Monocyte# 0.62 X10^3/uL; Monocyte% 9.5 % (0-10); NRBC Flagged by Analyzer 0 % (0-5); Neutrophil % 69.3 % (47-70); POSITIVE MORPHOLOGY YES; Platelet Count 316 K/mm3 (150-450); RBC Distribution Width CV 17.2 % (11.6-14.6); RBC Distribution Width SD 67.5 fl (35.1-43.9); Red Blood Count 2.77 M/mm3 (4.2-5.4); White Blood Count 6.5 K/mm3 (4.4-11.0)
[2019-07-16 06:28] LABS: Albumin, Serum 2.2 g/dL (3.2-5.0); BUN 60 mg/dL (7-18); BUN/Creat Ratio 27.3 RATIO (10-20); Calcium,Total 8.8 mg/dL (8.5-10.1); Chloride 100 mmol/L (98-107); EST Glomerular Filtration Rate 23 mL/min (>60); Est Glom Filt Rate - Afr Amer 28 mL/min (>60); Estimated Creatinine Clearance 15.65 ml/min; Glucose 151 mg/dL (74-106); Phosphorus 4.7 mg/dL (2.5-4.9); Potassium 4.4 mmol/L (3.5-5.1); Sodium Level 134 mmol/L (136-145)
[2019-07-16 06:30] LABS: Bedside Glucose 167 mg/dL (70-110)
[2019-07-16] MEDS: Ipratropium/Albuterol Sulfate 3 ML AMPUL.NEB INHALATION ×3 (06:54→19:25)
[2019-07-16] MEDS: Budesonide Respules 0.5 MG/2 ML AMPUL.NEB. INHALATION ×2 (06:54→19:25)
[2019-07-16 07:04] LABS: Differential Indicated SCAN CRITERIA MET
[2019-07-16 07:21] LABS: Anisocytosis 3+; Differential Comment SCANNED
--- NOTE | 2019-07-16 08:03 | US_ITS ---
PROCEDURE: ULTRASOUND GUIDED THORACENTESIS. DATE: July 16, 2019. INDICATION: Female, 78 years old. Right pleural effusion PHYSICIAN: Yonatan Howe M.D. PROCEDURE: The risks, benefits, and alternatives to the procedure were explained to the patient. The specific risks of bleeding, infection, and pneumothorax requiring chest tube insertion were discussed and accepted. Written informed consent was obtained. Ultrasonographic evaluation of the right lower pleural space was carried out. An adequate pocket was identified. The patient was placed in the sitting, upright position. The overlying skin was prepped and draped in sterile fashion. 1% lidocaine was administered subcutaneously for local anesthesia. Under ultrasound guidance, a 5 Greek thoracentesis needle/catheter system was advanced into the right posterior lower pleural fluid collection. Approximately 850 mL of tammy-colored fluid was drained. The catheter was removed, and a sterile dressing was applied. The patient tolerated the procedure well. A chest x-ray was ordered. US/Thoracentesis W US IMPRESSION: Ultrasound-guided right thoracentesis. Electronically Signed: Yonatan Howe, at 15:12 EST , Service support ,
[2019-07-16] MEDS: Iron Polysaccharide Complex 150 MG CAPSULE PO (09:00)
[2019-07-16] MEDS: Glimepiride 2 MG Tablet PO (09:00)
[2019-07-16] MEDS: 0.9% Normal Saline 1,000 ML 75 ML IV (10:55)
[2019-07-16 12:45] LABS: International Normalized Ratio 1.5; Prothrombin Time (Protime)PT. 18.2 SECONDS (11.7-14.9)
--- NOTE | 2019-07-16 13:45 | NURSING ---
off unit to ultrasound for thoracentesis via bed with daughter at side.
--- NOTE | 2019-07-16 14:30 | RAD_ITS ---
STUDY: X-RAY CHEST REASON FOR EXAM: Female, 78 years old. POST THORACENTESIS INSPIRATION AND EXPIRATION TECHNIQUE: AP inspiration and expiration views. COMPARISON: Comparison is made with prior study dated July 13, 2019. FINDINGS: The patient is status post right thoracentesis. No evidence of pneumothorax. Mild residual pleural-parenchymal changes are seen at the right lung base. RAD/Chest Insp/Exp 2 View IMPRESSION: Status post right thoracentesis. There is no evidence of pneumothorax. Electronically Signed: Yonatan Howe, at 8:40 EST , Service support ,
--- NOTE | 2019-07-16 16:18 | NURSING ---
Daughter, Iman will be gone beginning tomorrow 07/17 through sunday. During this time, Ochoa Hancock is to be the primary contact per daughter Iman and pt.
[2019-07-16] MEDS: Metoprolol Tartrate 25 MG Tablet PO (17:31)
[2019-07-16] MEDS: Mirtazapine 15 MG Tablet 7.5 MG PO (20:55)
[2019-07-16] MEDS: traZODone 50 MG Tablet PO (20:55)
[2019-07-16] MEDS: Atorvastatin Calcium 20 MG Tablet PO (20:56)
[2019-07-16 21:25] LABS: Bedside Glucose 146 mg/dL (70-110)
[2019-07-17] MEDS: 0.9% Normal Saline 1,000 ML 75 ML IV (04:16)
[2019-07-17] MEDS: Menthol/Lanolin/Calamine/Znox 113 GM Tube 1 APPLIC TOPICAL ×2 (04:19→21:01)
[2019-07-17] MEDS: Glucerna Shake 120 ML LIQUID 60 ML PO ×2 (04:19→21:00)
[2019-07-17] MEDS: Nystatin Powder 15gm Bottle 1 APPLIC TOPICAL ×2 (04:20→21:01)
[2019-07-17 04:21] VITALS: BP 111/87; PULSE 57
[2019-07-17] MEDS: Pantoprazole Sodium 40 MG Tablet PO (04:21)
[2019-07-17] MEDS: Metoprolol Tartrate 25 MG Tablet PO ×2 (04:21→17:14)
[2019-07-17] MEDS: Acetaminophen 325 MG Tablet 650 MG PO ×3 (04:21→21:00)
[2019-07-17] MEDS: BACITRACIN 15 GM Tube 1 APPLIC TOPICAL ×2 (04:25→17:16)
[2019-07-17] MEDS: Lidocaine 5% Patch 1 PATCH TOPICAL (04:28)
[2019-07-17 05:54] LABS: Hematocrit 28.8 % (37-47); Hemoglobin 8.5 g/dL (12.0-15.0); Mean Corp Hgb Conc 29.5 g/dL (32-36); Mean Corpuscular Hgb 31.1 pg (27.0-32.0); Mean Corpuscular Volume 105.5 fL (81-99); Mean Platelet Vol. 9.9 fl (6.2-12.0); POSITIVE MORPHOLOGY YES; Platelet Count 324 K/mm3 (150-450); RBC Distribution Width CV 17.1 % (11.6-14.6); RBC Distribution Width SD 66.9 fl (35.1-43.9); Red Blood Count 2.73 M/mm3 (4.2-5.4); White Blood Count 6.7 K/mm3 (4.4-11.0)
[2019-07-17 06:11] LABS: Albumin, Serum 2.1 g/dL (3.2-5.0); BUN 60 mg/dL (7-18); BUN/Creat Ratio 31.4 RATIO (10-20); Calcium,Total 8.8 mg/dL (8.5-10.1); Chloride 102 mmol/L (98-107); Creatinine, Serum 1.91 mg/dL (0.55-1.02); EST Glomerular Filtration Rate 27 mL/min (>60); Est Glom Filt Rate - Afr Amer 33 mL/min (>60); Estimated Creatinine Clearance 18.02 ml/min; Glucose 143 mg/dL (74-106); Phosphorus 4.3 mg/dL (2.5-4.9); Potassium 4.4 mmol/L (3.5-5.1); Sodium Level 137 mmol/L (136-145)
[2019-07-17 06:26] LABS: Scan Indicated on CBC? Y/N YES- FLAGS NOTED
[2019-07-17 06:26] LABS: Bedside Glucose 136 mg/dL (70-110)
[2019-07-17 06:34] LABS: Differential Comment SCANNED
[2019-07-17 06:56] VITALS: PULSE 60; RESP 20
[2019-07-17] MEDS: Ipratropium/Albuterol Sulfate 3 ML AMPUL.NEB INHALATION ×2 (06:57→16:13)
[2019-07-17] MEDS: Budesonide Respules 0.5 MG/2 ML AMPUL.NEB. INHALATION ×2 (06:58→19:55)
[2019-07-17] MEDS: Iron Polysaccharide Complex 150 MG CAPSULE PO (08:43)
[2019-07-17] MEDS: Glimepiride 2 MG Tablet PO (08:43)
--- NOTE | 2019-07-17 08:58 | PN.RENAL_ITS ---
Patient Problems: Active and Suspected Problems (Last Reviewed 07/15/19 @ 13:20 by Alessandra Valdivia) Cardiogenic shock (Acute) Debility (Acute) Subjective: receiving iv fluids. Creatinine improving slowly. Gross hematuria resolved. Denies CP, SOB. BP stable. - Physical Exam Vitals/I&O's: Vital Signs Temp Pulse Resp BP Pulse Ox 98.1 F 60 20 H 111/87 H 92 07/16/19 16:17 07/17/19 06:56 07/17/19 06:56 07/17/19 04:21 07/16/19 19:25 Oxygen Flow Rate (L/min) 0.5 Oxygen Delivery Method [3] Room Air Oxygen Delivery Method [2] Room Air Oxygen Delivery Method [1 ( Room Air Initial Baseline)] Oxygen Delivery Method Room Air Weight: 114.986 kg Body Mass Index (BMI) 47.8 Finger Stick Blood Glucose 211 Intake and Output for Last 24 Hours 07/15/19 07/16/19 07/17/19 23:59 23:59 23:59 Intake Total 1420 / 1420 1720 / 1720 1000 / 1000 Output Total 200 / 200 1450 / 1450 400 / 400 Balance 1220 / 1220 270 / 270 600 / 600 General: Alert, Oriented x3, Cooperative, No apparent distress Lungs: Rales Cardiovascular: Bradycardic Abdomen: Bowel Sounds Present, Soft, Non Tender, Non-Distended Extremities: Edema Skin: - - ecchymosis Musculoskeletal: - - gen weakness Psych/Mental Status: Alert and oriented to time, place, person, mood and affect Laboratory Results 07/16/19 12:15: PT 18.2 H, INR 1.5 07/16/19 21:19: POC Glucose 146 H 07/17/19 05:05: WBC 6.7, RBC 2.73 L, Hgb 8.5 L, Hct 28.8 L, MCV 105.5 H, MCH 31.1, MCHC 29.5 L, RDW Std Deviation 66.9 H, RDW Coeff of Alicia 17.1 H, Plt Count 324, MPV 9.9, Differential Comment SCANNED 07/17/19 05:05: Sodium 137, Potassium 4.4, Chloride 102, Carbon Dioxide 27.0, BUN 60 H, Creatinine 1.91 H, Estim Creat Clear Calc 18.02, Est GFR (MDRD) Af Amer 33 L, Est GFR (MDRD) Non-Af 27 L, BUN/Creatinine Ratio 31.4 H, Glucose 143 H, Calcium 8.8, Phosphorus 4.3, Albumin 2.1 L 07/17/19 06:17: POC Glucose 136 H Current Medications Acetaminophen (Tylenol) 650 mg PO TID [facility] Last Admin: 07/17/19 04:21 Dose: 650 mg Documented by: Albuterol Sulfate (Ventolin Aerosols) 2.5 mg INHALATION Q2H PRN PRN PRN Reason: WHEEZING Last Admin: 07/14/19 09:54 Dose: 2.5 mg Documented by: Albuterol/Ipratropium (Duoneb) 3 ml INHALATION Q6HWA.RT [facility] Last Admin: 07/17/19 06:57 Dose: 3 ml Documented by: Alendronate Sodium (Fosamax) 70 mg PO Corral@1000 [facility] Last Admin: 07/13/19 11:29 Dose: 70 mg Documented by: Atorvastatin Calcium (Lipitor) 20 mg PO QHS [facility] Last Admin: 07/16/19 20:56 Dose: 20 mg Documented by: Bacitracin (Bacitracin Ointment) 1 applic TOPICAL BID [facility]; Protocol Last Admin: 07/17/19 04:25 Dose: 1 applicatio Documented by: Benzonatate (Tessalon Perle) 200 mg PO TID PRN PRN PRN Reason: COUGH Last Admin: 07/15/19 17:26 Dose: 200 mg Documented by: Bisacodyl (Dulcolax) 10 mg PO DAILY PRN PRN Reason: Constipation Budesonide (Pulmicort Aerosol) 0.5 mg INHALATION Q12H.RT [facility] Last Admin: 07/17/19 06:58 Dose: 0.5 mg Documented by: Calamine/Phenol (Calmoseptine Ointment) 1 applic TOPICAL 0600,2200 [facility]; Protocol Last Admin: 07/17/19 04:19 Dose: 1 applicatio Documented by: Cholecalciferol (Vitamin D) 1,000 unit PO DAILY [facility] Last Admin: 07/17/19 04:22 Dose: 1,000 unit Documented by: Glimepiride (Amaryl) 2 mg PO DAILY@0800 [facility] Last Admin: 07/17/19 08:43 Dose: 2 mg Documented by: Glucagon () 1 mg IM .X1 PRN PRN Reason: Hypoglycemia Dextrose (Dextrose 10%-Water) 250 mls @ 999 mls/hr IV .Q16M PRN; Protocol PRN Reason: HYPOGLYCEMIA Sodium Chloride () 1,000 mls @ 75 mls/hr IV .[id number] [facility] Last Admin: 07/17/19 04:16 Dose: 75 mls/hr Documented by: Lidocaine (Lidoderm Patch) 1 patch TOPICAL DAILY [facility]; Protocol Last Admin: 07/17/19 04:28 Dose: 1 patch Documented by: Metoprolol Tartrate (Lopressor (Beta Lucina)) 25 mg PO BID [facility] Last Admin: 07/17/19 04:21 Dose: 25 mg Documented by: Mirtazapine (Remeron) 7.5 mg PO QHS [facility] Last Admin: 07/16/19 20:55 Dose: 7.5 mg Documented by: Multi-Ingredient Cream (Eucerin) 1 applic TOPICAL 2200 [facility]; Protocol Last Admin: 07/16/19 20:54 Dose: 1 applicatio Documented by: Nutritional Formula (Lactose Free) (Glucerna Shake) 60 ml PO 4X/DAY [facility] Last Admin: 07/17/19 04:19 Dose: 60 ml Documented by: Nystatin (Mycostatin Powder) 1 applic TOPICAL 0600,2200 [facility]; Protocol Last Admin: 07/17/19 04:20 Dose: 1 applicatio Documented by: Pantoprazole Sodium (Protonix) 40 mg PO DAILY [facility] Last Admin: 07/17/19 04:21 Dose: 40 mg Documented by: Polyethylene Glycol (Miralax) 17 gm PO DAILY [facility] Last Admin: 07/17/19 04:20 Dose: Not Given Documented by: Polysaccharide Iron Complex (Ferrex 150) 150 mg PO DAILYCM [facility] Last Admin: 07/17/19 08:43 Dose: 150 mg Documented by: Senna/Docusate Sodium (Senokot-S, Rachel-Colace) 1 tablet PO BID [facility] Last Admin: 07/17/19 04:20 Dose: Not Given Documented by: Sodium Chloride () 10 - 40 ml IV UD PRN PRN Reason: SALINE FLUSH Last Admin: 07/14/19 13:15 Dose: 10 ml Documented by: Sodium Chloride () 10 - 40 ml IV UD PRN PRN Reason: SALINE FLUSH Sodium Chloride () 10 - 40 ml IV UD PRN PRN Reason: SALINE FLUSH Throat Lozenges (Cepacol Sore Throat Lozenge) 1 lozenge MUCOUS MEM Q2H PRN PRN PRN Reason: SORE THROAT Last Admin: 07/15/19 17:26 Dose: 1 lozenge Documented by: Trazodone HCl (Desyrel) 50 mg PO QHS [facility] Last Admin: 07/16/19 20:55 Dose: 50 mg Documented by: Medical Necessity - Tobacco Use Smoking Status: Former smoker Tobacco Use: Cigarettes Assessment/Plan All Active Problems (Last Reviewed 07/15/19 @ 13:20 by Alessandra Valdivia) Cardiogenic shock (Acute) Bradycardia (Acute) Renal failure (ARF), acute on chronic (Acute) Acute hyperkalemia (Acute) Debility (Acute) Unresponsiveness (Resolved) History of respiratory failure with hypo (Resolved) Anemia (Ruled-out) 1. CARLENE on CKD stage 3 due to ischemic ATN. Baseline creatinine 1.2 on 06/27/19. Creatinine improving to 1.9 today with iv fluids. Ok to stop iv fluids 2. Hx UTI on 06/27/19. 3. s/p CPR due to hyperkalemia 06/16/19. Potassium stable 4. DM type 2 primary mgmt 5. pulmonary hypertension on REYNALDO from 03/2019 no SBE, Hx MSSA ankle infection. 6. Gross hematuria resolved off blood thinner 7. Chronic moderate right pleural effusion. Oxygenation stable on RA 8. Anemia hgb stable
[2019-07-17 14:21] VITALS: BP 130/58; PULSE 62; RESP 16; TEMP 36.7; O2SAT 98
--- NOTE | 2019-07-17 14:35 | NURSING ---
pt set to receive blood transfusion tomorrow morning 07/18/19 at 10am orders faxed now
[2019-07-17 16:14] VITALS: PULSE 64; RESP 20
[2019-07-17 17:14] VITALS: PULSE 62
[2019-07-17] MEDS: APIXABAN 2.5 MG TABLET PO (18:15)
[2019-07-17] MEDS: Albuterol 2.5 MG/3 ML VIAL.NEB. INHALATION (19:55)
[2019-07-17 19:56] VITALS: PULSE 60; RESP 18; O2SAT 95
[2019-07-17] MEDS: Mirtazapine 15 MG Tablet 7.5 MG PO (21:00)
[2019-07-17] MEDS: Atorvastatin Calcium 20 MG Tablet PO (21:01)
[2019-07-17] MEDS: traZODone 50 MG Tablet PO (21:01)
[2019-07-17 21:36] LABS: Bedside Glucose 132 mg/dL (70-110)
[2019-07-18] MEDS: Senna/Docusate Sodium 1 Tablet PO ×2 (04:54→17:17)
[2019-07-18] MEDS: Acetaminophen 325 MG Tablet 650 MG PO ×3 (04:54→21:50)
[2019-07-18] MEDS: Lidocaine 5% Patch 1 PATCH TOPICAL (04:54)
[2019-07-18] MEDS: Pantoprazole Sodium 40 MG Tablet PO (04:55)
[2019-07-18] MEDS: Nystatin Powder 15gm Bottle 1 APPLIC TOPICAL ×2 (04:56→21:52)
[2019-07-18] MEDS: Glucerna Shake 120 ML LIQUID 60 ML PO ×4 (04:56→21:50)
[2019-07-18] MEDS: Menthol/Lanolin/Calamine/Znox 113 GM Tube 1 APPLIC TOPICAL ×2 (04:57→21:51)
[2019-07-18 05:00] VITALS: BP 116/57; PULSE 63
[2019-07-18] MEDS: Metoprolol Tartrate 25 MG Tablet PO ×2 (05:00→17:17)
[2019-07-18] MEDS: BACITRACIN 15 GM Tube 1 APPLIC TOPICAL ×2 (05:10→17:19)
[2019-07-18] MEDS: APIXABAN 2.5 MG TABLET PO ×2 (05:57→17:17)
[2019-07-18 06:00] LABS: Hematocrit 27.6 % (37-47); Hemoglobin 8.3 g/dL (12.0-15.0)
[2019-07-18 06:16] LABS: Bedside Glucose 157 mg/dL (70-110)
[2019-07-18 06:20] LABS: Anion Gap 4 (5-15); BUN 58 mg/dL (7-18); BUN/Creat Ratio 34.1 RATIO (10-20); Calcium,Total 8.8 mg/dL (8.5-10.1); Chloride 106 mmol/L (98-107); EST Glomerular Filtration Rate 31 mL/min (>60); Est Glom Filt Rate - Afr Amer 37 mL/min (>60); Estimated Creatinine Clearance 20.25 ml/min; Glucose 136 mg/dL (74-106); Potassium 4.4 mmol/L (3.5-5.1); Sodium Level 138 mmol/L (136-145)
[2019-07-18 06:32] VITALS: PULSE 58; RESP 16; O2SAT 96
[2019-07-18] MEDS: Budesonide Respules 0.5 MG/2 ML AMPUL.NEB. INHALATION ×2 (06:32→19:42)
[2019-07-18] MEDS: Ipratropium/Albuterol Sulfate 3 ML AMPUL.NEB INHALATION ×2 (06:32→19:42)
[2019-07-18] MEDS: Glimepiride 2 MG Tablet PO (09:33)
[2019-07-18] MEDS: Iron Polysaccharide Complex 150 MG CAPSULE PO (09:34)
[2019-07-18] MEDS: BENZOCAINE/MENTHOL 1 LOZENGE MUCOUS MEM (09:45)
[2019-07-18 16:00] VITALS: BP 135/54; PULSE 64; RESP 16; TEMP 36.6; O2SAT 95
[2019-07-18 17:17] VITALS: PULSE 82
[2019-07-18 19:42] VITALS: PULSE 64; RESP 18; O2SAT 93
[2019-07-18 21:35] LABS: Bedside Glucose 142 mg/dL (70-110)
[2019-07-18] MEDS: traZODone 50 MG Tablet PO (21:50)
[2019-07-18] MEDS: Atorvastatin Calcium 20 MG Tablet PO (21:50)
[2019-07-18] MEDS: Mirtazapine 15 MG Tablet 7.5 MG PO (21:50)
[2019-07-18] MEDS: 0.9% Saline Lock 10 ML Syringe IV (22:04)
[2019-07-18 22:06] VITALS: PULSE 64; O2SAT 98
[2019-07-19] VITALS (7 sets, daily range): BP systolic 135–144; BP diastolic 57–72; PULSE 65–69; RESP 16–20; TEMP 36.4; O2SAT 93–97
[2019-07-19] MEDS: Pantoprazole Sodium 40 MG Tablet PO (05:17)
[2019-07-19] MEDS: APIXABAN 2.5 MG TABLET PO ×2 (05:17→18:03)
[2019-07-19] MEDS: Senna/Docusate Sodium 1 Tablet PO ×2 (05:17→18:03)
[2019-07-19] MEDS: Acetaminophen 325 MG Tablet 650 MG PO ×3 (05:17→23:23)
[2019-07-19] MEDS: Lidocaine 5% Patch 1 PATCH TOPICAL (05:17)
[2019-07-19] MEDS: Metoprolol Tartrate 25 MG Tablet PO ×2 (05:17→18:03)
[2019-07-19] MEDS: Glucerna Shake 120 ML LIQUID 60 ML PO ×3 (05:18→18:02)
[2019-07-19] MEDS: Menthol/Lanolin/Calamine/Znox 113 GM Tube 1 APPLIC TOPICAL ×2 (05:22→23:38)
[2019-07-19] MEDS: Nystatin Powder 15gm Bottle 1 APPLIC TOPICAL ×2 (05:24→23:39)
[2019-07-19 06:15] LABS: Bedside Glucose 126 mg/dL (70-110)
[2019-07-19 07:35] LABS: Hematocrit 33.1 % (37-47)
[2019-07-19 07:49] LABS: Anion Gap 2 (5-15); BUN 54 mg/dL (7-18); BUN/Creat Ratio 35.1 RATIO (10-20); Calcium,Total 8.9 mg/dL (8.5-10.1); Chloride 107 mmol/L (98-107); Creatinine, Serum 1.54 mg/dL (0.55-1.02); EST Glomerular Filtration Rate 35 mL/min (>60); Est Glom Filt Rate - Afr Amer 42 mL/min (>60); Estimated Creatinine Clearance 22.35 ml/min; Glucose 139 mg/dL (74-106); Potassium 4.6 mmol/L (3.5-5.1); Sodium Level 139 mmol/L (136-145)
[2019-07-19] MEDS: Iron Polysaccharide Complex 150 MG CAPSULE PO (08:45)
[2019-07-19] MEDS: Glimepiride 2 MG Tablet PO (08:45)
[2019-07-19] MEDS: Albuterol 2.5 MG/3 ML VIAL.NEB. INHALATION ×2 (09:13→14:10)
[2019-07-19] MEDS: 0.9% Saline Lock 10 ML Syringe IV ×2 (11:43→23:43)
[2019-07-19] MEDS: Budesonide Respules 0.5 MG/2 ML AMPUL.NEB. INHALATION (19:50)
[2019-07-19] MEDS: Ipratropium/Albuterol Sulfate 3 ML AMPUL.NEB INHALATION (19:50)
[2019-07-19 21:05] LABS: Bedside Glucose 134 mg/dL (70-110)
[2019-07-19] MEDS: Atorvastatin Calcium 20 MG Tablet PO (23:23)
[2019-07-19] MEDS: traZODone 50 MG Tablet PO (23:23)
[2019-07-19] MEDS: Mirtazapine 15 MG Tablet 7.5 MG PO (23:24)
[2019-07-19] MEDS: Benzonatate 100 MG Capsule 200 MG PO (23:32)
[2019-07-20] VITALS (7 sets, daily range): BP systolic 123–130; BP diastolic 51–52; PULSE 69–80; RESP 16–18; TEMP 36.7; O2SAT 91–92
[2019-07-20] MEDS: BENZOCAINE/MENTHOL 1 LOZENGE MUCOUS MEM (01:30)
[2019-07-20] MEDS: Menthol/Lanolin/Calamine/Znox 113 GM Tube 1 APPLIC TOPICAL ×2 (06:13→19:42)
[2019-07-20] MEDS: Nystatin Powder 15gm Bottle 1 APPLIC TOPICAL ×2 (06:14→19:42)
[2019-07-20 06:16] LABS: Bedside Glucose 119 mg/dL (70-110)
[2019-07-20] MEDS: Acetaminophen 325 MG Tablet 650 MG PO ×3 (06:16→19:43)
[2019-07-20] MEDS: Pantoprazole Sodium 40 MG Tablet PO (06:16)
[2019-07-20] MEDS: Metoprolol Tartrate 25 MG Tablet PO ×2 (06:19→17:10)
[2019-07-20] MEDS: Lidocaine 5% Patch 1 PATCH TOPICAL (06:23)
[2019-07-20] MEDS: APIXABAN 2.5 MG TABLET PO ×2 (06:52→17:10)
--- NOTE | 2019-07-20 07:04 | RAD_ITS ---
STUDY: X-RAY - ABDOMEN/PELVIS REASON FOR EXAM: Female, 78 years old. LOOSE STOOLS TECHNIQUE: Single AP view of the abdomen / pelvis. COMPARISON: 07/10/2019 FINDINGS: There is an unremarkable bowel gas pattern. The visualized liver, spleen and kidneys are grossly normal in size and morphology. Normal soft tissue structures. Levoscoliosis of the lumbar spine with degenerative disc disease. RAD/Abdomen Single View IMPRESSION: Normal x-ray examination of the abdomen and pelvis. Electronically Signed: Luis Giang MD at 9:36 EST Tel , Service support ,
--- NOTE | 2019-07-20 07:04 | NURSING ---
Dr. Nieves updated on loose stools. New order for KUB.
[2019-07-20] MEDS: Glimepiride 2 MG Tablet PO (07:37)
[2019-07-20] MEDS: Iron Polysaccharide Complex 150 MG CAPSULE PO (07:37)
[2019-07-20] MEDS: Ipratropium/Albuterol Sulfate 3 ML AMPUL.NEB INHALATION ×3 (07:44→19:00)
[2019-07-20] MEDS: Bisacodyl 5 MG Tablet 10 MG PO (08:56)
--- NOTE | 2019-07-20 08:58 | NURSING ---
PT STATED SHE WOULD TAKE THE PRN DULCOLAX. MAUDE GUZMAN AWARE
[2019-07-20] MEDS: Alendronate Sodium 70 MG Tablet PO (09:55)
[2019-07-20] MEDS: Albuterol 2.5 MG/3 ML VIAL.NEB. INHALATION (09:59)
--- NOTE | 2019-07-20 13:26 | NURSING ---
Addendum entered by Janiya White 07/20/19 16:07: Enema given as ordered, with very small liquid results. no formed pieces. resident tired and wants to rest. Will continue to monitor for good results. Original Note: dr justice reviewed xray, new order for SSE x1.
[2019-07-20] MEDS: 0.9% Saline Lock 10 ML Syringe IV (15:20)
[2019-07-20] MEDS: Senna/Docusate Sodium 1 Tablet PO (17:10)
[2019-07-20] MEDS: Budesonide Respules 0.5 MG/2 ML AMPUL.NEB. INHALATION (19:00)
[2019-07-20] MEDS: Glucerna Shake 120 ML LIQUID 60 ML PO (19:42)
[2019-07-20] MEDS: Atorvastatin Calcium 20 MG Tablet PO (19:43)
[2019-07-20] MEDS: traZODone 50 MG Tablet PO (19:43)
[2019-07-20] MEDS: Mirtazapine 15 MG Tablet 7.5 MG PO (19:43)
[2019-07-20 21:31] LABS: Bedside Glucose 152 mg/dL (70-110)
[2019-07-21] VITALS (8 sets, daily range): BP systolic 128–177; BP diastolic 58–61; PULSE 73–84; RESP 16–26; TEMP 36.5; O2SAT 91–96
[2019-07-21 06:00] LABS: Bedside Glucose 117 mg/dL (70-110)
[2019-07-21] MEDS: Budesonide Respules 0.5 MG/2 ML AMPUL.NEB. INHALATION ×2 (06:07→20:05)
[2019-07-21] MEDS: Ipratropium/Albuterol Sulfate 3 ML AMPUL.NEB INHALATION ×3 (06:07→20:05)
[2019-07-21] MEDS: Menthol/Lanolin/Calamine/Znox 113 GM Tube 1 APPLIC TOPICAL ×2 (06:45→21:30)
[2019-07-21] MEDS: Nystatin Powder 15gm Bottle 1 APPLIC TOPICAL ×2 (06:46→21:31)
[2019-07-21] MEDS: Polyethylene Glycol 3350 17 GM PACKET PO (06:48)
[2019-07-21] MEDS: Metoprolol Tartrate 25 MG Tablet PO ×2 (06:49→17:10)
[2019-07-21] MEDS: Glucerna Shake 120 ML LIQUID 60 ML PO ×4 (06:49→21:20)
[2019-07-21] MEDS: Lidocaine 5% Patch 1 PATCH TOPICAL (06:51)
[2019-07-21] MEDS: APIXABAN 2.5 MG TABLET PO ×2 (06:51→17:10)
[2019-07-21] MEDS: Pantoprazole Sodium 40 MG Tablet PO (06:51)
[2019-07-21] MEDS: Acetaminophen 325 MG Tablet 650 MG PO ×3 (06:51→21:21)
[2019-07-21] MEDS: Senna/Docusate Sodium 1 Tablet PO (06:51)
[2019-07-21] MEDS: Iron Polysaccharide Complex 150 MG CAPSULE PO (08:42)
[2019-07-21] MEDS: Glimepiride 2 MG Tablet PO (08:42)
[2019-07-21] MEDS: Albuterol 2.5 MG/3 ML VIAL.NEB. INHALATION (10:25)
--- NOTE | 2019-07-21 15:35 | NURSING ---
In to reassess bilateral heels. no further scabs or pressure related injuries noted. will sign off at this time. nursing aware to call if needs arise.
[2019-07-21] MEDS: 0.9% Saline Lock 10 ML Syringe IV (17:14)
[2019-07-21] MEDS: MELATONIN 3 MG TABLET PO (21:21)
[2019-07-21] MEDS: Mirtazapine 15 MG Tablet 7.5 MG PO (21:21)
[2019-07-21] MEDS: traZODone 50 MG Tablet PO (21:22)
[2019-07-21] MEDS: Atorvastatin Calcium 20 MG Tablet PO (21:22)
[2019-07-21 22:20] LABS: Bedside Glucose 184 mg/dL (70-110)
[2019-07-22] VITALS (8 sets, daily range): BP systolic 106–185; BP diastolic 52–54; PULSE 73–86; RESP 18–20; TEMP 37.2; O2SAT 90–93
[2019-07-22] MEDS: Acetaminophen 325 MG Tablet 650 MG PO ×3 (05:09→20:37)
[2019-07-22] MEDS: Polyethylene Glycol 3350 17 GM PACKET PO (05:09)
[2019-07-22] MEDS: APIXABAN 2.5 MG TABLET PO ×2 (05:09→17:33)
[2019-07-22] MEDS: Lidocaine 5% Patch 1 PATCH TOPICAL (05:09)
[2019-07-22] MEDS: Senna/Docusate Sodium 1 Tablet PO ×2 (05:09→17:33)
[2019-07-22] MEDS: Pantoprazole Sodium 40 MG Tablet PO (05:10)
[2019-07-22] MEDS: Metoprolol Tartrate 25 MG Tablet PO ×2 (05:10→17:33)
[2019-07-22] MEDS: Menthol/Lanolin/Calamine/Znox 113 GM Tube 1 APPLIC TOPICAL ×2 (05:11→20:42)
[2019-07-22] MEDS: Albuterol 2.5 MG/3 ML VIAL.NEB. INHALATION (05:13)
[2019-07-22] MEDS: Nystatin Powder 15gm Bottle 1 APPLIC TOPICAL ×2 (05:14→20:42)
[2019-07-22 06:16] LABS: Bedside Glucose 167 mg/dL (70-110)
[2019-07-22] MEDS: Ipratropium/Albuterol Sulfate 3 ML AMPUL.NEB INHALATION ×3 (06:30→18:47)
[2019-07-22] MEDS: Budesonide Respules 0.5 MG/2 ML AMPUL.NEB. INHALATION ×2 (06:30→18:47)
[2019-07-22] MEDS: Iron Polysaccharide Complex 150 MG CAPSULE PO (08:38)
[2019-07-22] MEDS: Glimepiride 2 MG Tablet PO (08:38)
--- NOTE | 2019-07-22 11:28 | PHA.CONS_ITS ---
<Merissa Light - Last Filed: 07/22/19 11:28> Progress Note - Pharmacy Subjective: TCU June Note Objective: Allergies Penicillins [PCN] Allergy (Verified 07/14/19 09:52) Other shellfish derived Allergy (Verified 07/14/19 09:52) Other Current Medications Generic Name Dose Route Start Last Admin Trade Name Freq PRN Reason Stop Dose Admin Acetaminophen 650 mg 07/06/19 22:00 07/22/19 05:09 Tylenol PO 650 mg TID [facility] Administration Albuterol Sulfate 2.5 mg 06/20/19 18:54 07/22/19 05:13 Ventolin Aerosols INHALATION 2.5 mg Q2H PRN PRN Administration WHEEZING Albuterol/Ipratropium 3 ml 07/15/19 17:45 07/22/19 06:30 Duoneb INHALATION 3 ml Q6HWA.RT [facility] Administration Alendronate Sodium 70 mg 06/22/19 10:00 07/20/19 09:55 Fosamax PO 70 mg Corral@1000 [facility] Administration Apixaban 2.5 mg 07/17/19 18:00 07/22/19 05:09 Eliquis PO 2.5 mg BID [facility] Administration Atorvastatin Calcium 20 mg 06/20/19 22:00 07/21/19 21:22 Lipitor PO 20 mg QHS [facility] Administration Benzonatate 200 mg 07/12/19 14:36 07/19/19 23:32 Tessalon Perle PO 200 mg TID PRN PRN Administration COUGH Bisacodyl 10 mg 06/20/19 18:55 07/20/19 08:56 Dulcolax PO 10 mg DAILY PRN Administration Constipation Budesonide 0.5 mg 06/20/19 18:00 07/22/19 06:30 Pulmicort Aerosol INHALATION 0.5 mg Q12H.RT [facility] Administration Calamine/Phenol 1 applic 06/21/19 06:00 07/22/19 05:11 Calmoseptine Ointment TOPICAL 1 applicatio 0600,2200 [facility] Administration Protocol Cholecalciferol 1,000 unit 06/26/19 06:00 07/22/19 05:10 Vitamin D PO 1,000 unit DAILY [facility] Administration Glimepiride 2 mg 06/21/19 08:00 07/22/19 08:38 Amaryl PO 2 mg DAILY@0800 [facility] Administration Glucagon 1 mg 07/07/19 23:57 IM .X1 PRN Hypoglycemia Dextrose 250 mls @ 999 mls/hr 07/08/19 23:55 Dextrose 10%-Water IV .Q16M PRN HYPOGLYCEMIA Protocol Lidocaine 1 patch 07/17/19 06:00 07/22/19 05:09 Lidoderm Patch TOPICAL 1 patch DAILY [facility] Administration Protocol Melatonin 3 mg 07/21/19 22:00 07/21/19 21:21 Melatonin PO 3 mg QHS [facility] Administration Metoprolol Tartrate 25 mg 06/20/19 18:00 07/22/19 05:10 Lopressor (Beta Lucina) PO 25 mg BID [facility] Administration Mirtazapine 7.5 mg 06/25/19 22:00 07/21/19 21:21 Remeron PO 7.5 mg QHS [facility] Administration Multi-Ingredient Cream 1 applic 06/21/19 22:00 07/21/19 21:31 Eucerin TOPICAL 1 applicatio 2199 [facility] Administration Protocol Nutritional Formula (Lactose Free) 60 ml 07/05/19 12:00 07/22/19 05:14 Glucerna Shake PO Not Given 4X/DAY [facility] Nystatin 1 applic 06/21/19 06:00 07/22/19 05:14 Mycostatin Powder TOPICAL 1 applicatio 599,2199 [facility] Administration Protocol Pantoprazole Sodium 40 mg 06/26/19 06:00 07/22/19 05:10 Protonix PO 40 mg DAILY [facility] Administration Polyethylene Glycol 17 gm 06/21/19 06:00 07/22/19 05:09 Miralax PO 17 gm DAILY [facility] Administration Polysaccharide Iron Complex 150 mg 06/21/19 09:30 07/22/19 08:38 Ferrex 150 PO 150 mg DAILYCM [facility] Administration Senna/Docusate Sodium 1 tablet 06/21/19 06:00 07/22/19 05:09 Senokot-S, Rachel-Colace PO 1 tablet BID [facility] Administration Sodium Chloride 10 - 40 ml 07/12/19 16:51 07/21/19 17:14 IV 10 ml UD PRN Administration SALINE FLUSH Sodium Chloride 10 - 40 ml 07/13/19 18:41 IV UD PRN SALINE FLUSH Sodium Chloride 10 - 40 ml 07/15/19 09:56 IV UD PRN SALINE FLUSH Throat Lozenges 1 lozenge 07/15/19 09:56 07/20/19 01:30 Cepacol Sore Throat Lozenge MUCOUS MEM 1 lozenge Q2H PRN PRN Administration SORE THROAT Trazodone HCl 50 mg 06/20/19 22:00 07/21/19 21:22 Desyrel PO 50 mg QHS [facility] Administration Problem List (Last Reviewed 07/15/19 @ 13:20 by Alessandra Valdivia) Cardiogenic shock (Acute) Edema (Chronic) Debility (Acute) Methicillin resistant Staph aureus culture positive (Chronic) Cellulitis of right ankle (Chronic) Osteoporosis (Chronic) Anxiety (Chronic) GERD (gastroesophageal reflux disease) (Chronic) Insomnia (Chronic) Vital Signs Temp Pulse Resp BP Pulse Ox 97.7 F L 73 18 185/54 H 90 07/21/19 15:18 07/22/19 06:30 07/22/19 06:30 07/22/19 05:10 07/22/19 06:30 Oxygen Flow Rate (L/min) 0.5 Oxygen Delivery Method [3] Room Air Oxygen Delivery Method [2] Room Air Oxygen Delivery Method [1 ( Room Air Initial Baseline)] Oxygen Delivery Method Room Air Weight: 112.763 kg Body Mass Index (BMI) 47.8 Finger Stick Blood Glucose 211 Sodium 139 mmol/L (136-145) 07/19/19 07:08 Potassium 4.6 mmol/L (3.5-5.1) 07/19/19 07:08 Chloride 107 mmol/L (98-107) 07/19/19 07:08 Carbon Dioxide 30.0 mmol/L (21.0-32.0) 07/19/19 07:08 Anion Gap 2 (5-15) L 07/19/19 07:08 BUN 54 mg/dL (7-18) H 07/19/19 07:08 Creatinine 1.54 mg/dL (0.55-1.02) H 07/19/19 07:08 Est GFR (MDRD) Af Amer 42 mL/min (>60) L 07/19/19 07:08 Est GFR (MDRD) Non-Af 35 mL/min (>60) L 07/19/19 07:08 BUN/Creatinine Ratio 35.1 RATIO (10-20) H 07/19/19 07:08 Glucose 139 mg/dL (74-106) H 07/19/19 07:08 Assessment/Plan: 1. Pain: Acetaminophen 650mg po tid and lidocaine 5% patch topically to the neck once daily. Please continue to monitor for signs/symptoms of increased/decreased pain. 2. Hyperlipidemia: Atorvastatin 20mg po qhs. Pts LFTs and Lipid Panel are within normal limits. Please continue to monitor. 3. Osteoporosis: Alendronate 70mg po weekly. Alendronate should be taken first thing in the morning, on an empty stomach, with a full glass of water. Pt should remain upright for at least 30 minutes after taking dose. Pt should not eat, drink, or take any other medications for 30 minutes before or after dose. 4. Hypertension, AFIB: Metoprolol tartrate 25mg po bid, Eliquis 2.5mg po bid. Pt's K+ is 4.6, SrCr is 1.54. Please continue to monitor. Pt's BUN is elevated at 54. Please continue to monitor renal function, BP, HR and S/S of bleeding. 5. Diabetes: Glimeperide 2mg po daily at 0800. Please continue to monitor pt's blood glucose levels and for S/S of hypoglycemia. 6. GERD: Pantoprazole 40mg PO daily. Please continue to monitor. 7. COPD: Budesonide 0.5mg inhalation q12h.rt, ipratropium/albuterol 3mL q6hwa.rt, albuterol 2.5mg inhalation q2h prn wheezing. Please continue to monitor for wheezing, increased HR and anticholinergic side effects. 8. Iron deficiency anemia (Hgb 10.0 g/dL): Ferrex 150mg PO DAILYCM. Please continue to monitor hemoglobin and for dark stools. 9. Cough/sore throat: Benzonatate 200mg po tid prn cough and Cepacol lozenge 1 lozenge q2h prn sore throat. Please continue to monitor for cough, sore throat and PRN usage. 10. Vitamin D deficiency: Cholecalciferol 1000units po daily. Recent vitamin D level in chart. Please continue to monitor. Psychotropic Medications: *1. Trazodone 50mg po qhs for insomnia. Medication will require a GDR by 08/2019 unless clinically contraindicated 2. Mirtazapine 7.5mg po qhs for appetite loss. Patient recently started on this medication. GDR not appropriate. Please continue to monitor for improved appetite. Unnecessary Medications: melatonin 3mg po qhs. There is no documented indication for melatonin. Please consider D/C if clinically appropriate. *Bowel Regimen: Bisacodyl 10mg po daily prn for constipation, Miralax 17gm po daily, Senna/Docusate 1 tablet po bid. Pt has still refusing most Miralax and Senna/Docusate doses. Please continue to monitor. If pt keeps refusing, please consider changing to prn usage. Thanks. Date of Note:: 07/22/19 - Provider Comments Provider responsibility: Provider responsible to enter orders to implement recommendations <Fam Nieves Chi - Last Filed: 07/22/19 17:26> Progress Note - Pharmacy Subjective: [] Objective: Allergies Penicillins [PCN] Allergy (Verified 07/14/19 09:52) Other shellfish derived Allergy (Verified 07/14/19 09:52) Other Current Medications Generic Name Dose Route Start Last Admin Trade Name Freq PRN Reason Stop Dose Admin Acetaminophen 650 mg 07/06/19 22:00 07/22/19 15:05 Tylenol PO 650 mg TID [facility] Administration Albuterol Sulfate 2.5 mg 06/20/19 18:54 07/22/19 05:13 Ventolin Aerosols INHALATION 2.5 mg Q2H PRN PRN Administration WHEEZING Albuterol/Ipratropium 3 ml 07/15/19 17:45 07/22/19 13:14 Duoneb INHALATION 3 ml Q6HWA.RT [facility] Administration Alendronate Sodium 70 mg 06/22/19 10:00 07/20/19 09:55 Fosamax PO 70 mg Corral@1000 [facility] Administration Apixaban 2.5 mg 07/17/19 18:00 07/22/19 05:09 Eliquis PO 2.5 mg BID [facility] Administration Atorvastatin Calcium 20 mg 06/20/19 22:00 07/21/19 21:22 Lipitor PO 20 mg QHS [facility] Administration Benzonatate 200 mg 07/12/19 14:36 07/19/19 23:32 Tessalon Perle PO 200 mg TID PRN PRN Administration COUGH Bisacodyl 10 mg 06/20/19 18:55 07/20/19 08:56 Dulcolax PO 10 mg DAILY PRN Administration Constipation Budesonide 0.5 mg 06/20/19 18:00 07/22/19 06:30 Pulmicort Aerosol INHALATION 0.5 mg Q12H.RT [facility] Administration Calamine/Phenol 1 applic 06/21/19 06:00 07/22/19 05:11 Calmoseptine Ointment TOPICAL 1 applicatio [facility] Administration Protocol Cholecalciferol 1,000 unit 06/26/19 06:00 07/22/19 05:10 Vitamin D PO 1,000 unit DAILY [facility] Administration Glimepiride 2 mg 06/21/19 08:00 07/22/19 08:38 Amaryl PO 2 mg DAILY@0800 [facility] Administration Glucagon 1 mg 07/07/19 23:57 IM .X1 PRN Hypoglycemia Dextrose 250 mls @ 999 mls/hr 07/08/19 23:55 Dextrose 10%-Water IV .Q16M PRN HYPOGLYCEMIA Protocol Lidocaine 1 patch 07/17/19 06:00 07/22/19 05:09 Lidoderm Patch TOPICAL 1 patch DAILY [facility] Administration Protocol Melatonin 3 mg 07/21/19 22:00 07/21/19 21:21 Melatonin PO 3 mg QHS [facility] Administration Metoprolol Tartrate 25 mg 06/20/19 18:00 07/22/19 05:10 Lopressor (Beta Lucina) PO 25 mg BID [facility] Administration Mirtazapine 7.5 mg 06/25/19 22:00 07/21/19 21:21 Remeron PO 7.5 mg QHS [facility] Administration Multi-Ingredient Cream 1 applic 06/21/19 22:00 07/21/19 21:31 Eucerin TOPICAL 1 applicatio 2199 [facility] Administration Protocol Nutritional Formula (Lactose Free) 60 ml 07/05/19 12:00 07/22/19 11:40 Glucerna Shake PO 60 ml 4X/DAY [facility] Administration Nystatin 1 applic 06/21/19 06:00 07/22/19 05:14 Mycostatin Powder TOPICAL 1 applicatio [facility] Administration Protocol Pantoprazole Sodium 40 mg 06/26/19 06:00 07/22/19 05:10 Protonix PO 40 mg DAILY [facility] Administration Polyethylene Glycol 17 gm 06/21/19 06:00 07/22/19 05:09 Miralax PO 17 gm DAILY [facility] Administration Polysaccharide Iron Complex 150 mg 06/21/19 09:30 07/22/19 08:38 Ferrex 150 PO 150 mg DAILYCM [facility] Administration Senna/Docusate Sodium 1 tablet 06/21/19 06:00 07/22/19 05:09 Senokot-S, Rachel-Colace PO 1 tablet BID [facility] Administration Sodium Chloride 10 - 40 ml 07/12/19 16:51 07/21/19 17:14 IV 10 ml UD PRN Administration SALINE FLUSH Sodium Chloride 10 - 40 ml 07/13/19 18:41 IV UD PRN SALINE FLUSH Sodium Chloride 10 - 40 ml 07/15/19 09:56 IV UD PRN SALINE FLUSH Throat Lozenges 1 lozenge 07/15/19 09:56 07/20/19 01:30 Cepacol Sore Throat Lozenge MUCOUS MEM 1 lozenge Q2H PRN PRN Administration SORE THROAT Trazodone HCl 50 mg 06/20/19 22:00 07/21/19 21:22 Desyrel PO 50 mg QHS [facility] Administration Problem List (Last Reviewed 07/15/19 @ 13:20 by Alessandra Valdivia) Cardiogenic shock (Acute) Edema (Chronic) Debility (Acute) Methicillin resistant Staph aureus culture positive (Chronic) Cellulitis of right ankle (Chronic) Osteoporosis (Chronic) Anxiety (Chronic) GERD (gastroesophageal reflux disease) (Chronic) Insomnia (Chronic) Vital Signs Temp Pulse Resp BP Pulse Ox 99.0 F 84 18 106/52 L 92 07/22/19 14:39 07/22/19 14:39 07/22/19 14:39 07/22/19 14:39 07/22/19 14:39 Oxygen Flow Rate (L/min) 0.5 Oxygen Delivery Method [3] Room Air Oxygen Delivery Method [2] Room Air Oxygen Delivery Method [1 ( Room Air Initial Baseline)] Oxygen Delivery Method Room Air Weight: 112.763 kg Body Mass Index (BMI) 47.8 Finger Stick Blood Glucose 211 Sodium 139 mmol/L (136-145) 07/19/19 07:08 Potassium 4.6 mmol/L (3.5-5.1) 07/19/19 07:08 Chloride 107 mmol/L (98-107) 07/19/19 07:08 Carbon Dioxide 30.0 mmol/L (21.0-32.0) 07/19/19 07:08 Anion Gap 2 (5-15) L 07/19/19 07:08 BUN 54 mg/dL (7-18) H 07/19/19 07:08 Creatinine 1.54 mg/dL (0.55-1.02) H 07/19/19 07:08 Est GFR (MDRD) Af Amer 42 mL/min (>60) L 07/19/19 07:08 Est GFR (MDRD) Non-Af 35 mL/min (>60) L 07/19/19 07:08 BUN/Creatinine Ratio 35.1 RATIO (10-20) H 07/19/19 07:08 Glucose 139 mg/dL (74-106) H 07/19/19 07:08 Assessment/Plan: Psychotropic Medications: Unnecessary Medications: Bowel Regimen: - Provider Comments Provider responsibility: Provider responsible to enter orders to implement recommendations Provider Comments to Recommendations by Pharmacy: Agree
[2019-07-22] MEDS: Glucerna Shake 120 ML LIQUID 60 ML PO ×3 (11:40→20:37)
[2019-07-22] MEDS: MELATONIN 3 MG TABLET PO (20:38)
[2019-07-22] MEDS: traZODone 50 MG Tablet PO (20:38)
[2019-07-22] MEDS: Mirtazapine 15 MG Tablet 7.5 MG PO (20:38)
[2019-07-22] MEDS: Atorvastatin Calcium 20 MG Tablet PO (20:38)
[2019-07-22 21:31] LABS: Bedside Glucose 140 mg/dL (70-110)
[2019-07-23] VITALS (7 sets, daily range): BP systolic 142–153; BP diastolic 57–74; PULSE 76–87; RESP 14–21; TEMP 36.9; O2SAT 91–98
[2019-07-23] MEDS: Glucerna Shake 120 ML LIQUID 60 ML PO ×2 (05:50→11:06)
[2019-07-23] MEDS: APIXABAN 2.5 MG TABLET PO ×2 (05:51→17:31)
[2019-07-23] MEDS: Acetaminophen 325 MG Tablet 650 MG PO ×3 (05:51→21:48)
[2019-07-23] MEDS: Senna/Docusate Sodium 1 Tablet PO ×2 (05:51→17:31)
[2019-07-23] MEDS: Pantoprazole Sodium 40 MG Tablet PO (05:52)
[2019-07-23] MEDS: Metoprolol Tartrate 25 MG Tablet PO ×2 (05:52→17:31)
[2019-07-23] MEDS: Polyethylene Glycol 3350 17 GM PACKET PO (05:52)
[2019-07-23] MEDS: Nystatin Powder 15gm Bottle 1 APPLIC TOPICAL ×2 (05:53→21:49)
[2019-07-23] MEDS: Menthol/Lanolin/Calamine/Znox 113 GM Tube 1 APPLIC TOPICAL ×2 (05:53→21:49)
[2019-07-23 06:30] LABS: Bedside Glucose 186 mg/dL (70-110)
[2019-07-23] MEDS: Budesonide Respules 0.5 MG/2 ML AMPUL.NEB. INHALATION ×2 (08:01→18:51)
[2019-07-23] MEDS: Ipratropium/Albuterol Sulfate 3 ML AMPUL.NEB INHALATION ×2 (08:01→18:51)
[2019-07-23] MEDS: Iron Polysaccharide Complex 150 MG CAPSULE PO (08:35)
[2019-07-23] MEDS: Glimepiride 2 MG Tablet PO (08:35)
[2019-07-23] MEDS: 0.9% Saline Lock 10 ML Syringe IV (08:40)
[2019-07-23] MEDS: Albuterol 2.5 MG/3 ML VIAL.NEB. INHALATION ×2 (10:00→14:45)
[2019-07-23] MEDS: Lidocaine 5% Patch 1 PATCH TOPICAL (11:02)
[2019-07-23] MEDS: BENZOCAINE/MENTHOL 1 LOZENGE MUCOUS MEM (11:44)
[2019-07-23] MEDS: Mag Hydrox/Al Hydrox/Simeth 30 ML UDC 15 ML PO (14:58)
[2019-07-23 21:06] LABS: Bedside Glucose 150 mg/dL (70-110)
[2019-07-23] MEDS: traZODone 50 MG Tablet PO (21:47)
[2019-07-23] MEDS: Mirtazapine 15 MG Tablet 7.5 MG PO (21:47)
[2019-07-23] MEDS: Atorvastatin Calcium 20 MG Tablet PO (21:48)
[2019-07-23] MEDS: MELATONIN 3 MG TABLET PO (21:48)
[2019-07-24] VITALS (8 sets, daily range): BP systolic 138–171; BP diastolic 50–85; PULSE 74–90; RESP 16–26; TEMP 36.1; O2SAT 95–99
[2019-07-24] MEDS: Senna/Docusate Sodium 1 Tablet PO ×2 (05:48→17:02)
[2019-07-24] MEDS: APIXABAN 2.5 MG TABLET PO ×2 (05:49→17:08)
[2019-07-24] MEDS: Polyethylene Glycol 3350 17 GM PACKET PO (05:49)
[2019-07-24] MEDS: Pantoprazole Sodium 40 MG Tablet PO (05:49)
[2019-07-24] MEDS: Metoprolol Tartrate 25 MG Tablet PO ×2 (05:49→17:02)
[2019-07-24] MEDS: Menthol/Lanolin/Calamine/Znox 113 GM Tube 1 APPLIC TOPICAL ×2 (05:49→20:44)
[2019-07-24] MEDS: Nystatin Powder 15gm Bottle 1 APPLIC TOPICAL ×2 (05:50→20:44)
[2019-07-24] MEDS: Lidocaine 5% Patch 1 PATCH TOPICAL (05:50)
[2019-07-24] MEDS: Acetaminophen 325 MG Tablet 650 MG PO ×3 (05:51→20:41)
--- NOTE | 2019-07-24 06:04 | NURSING ---
Addendum entered by Janiya White 07/24/19 08:30: Dr justice updated, new order for lasix daily & BMP draw this AM. Original Note: UTILIZATION COORDINATOR preforming AM care and pt began to get SOB. O2 84-85%. 2L NC applied up to 95%. Pt states she has been getting SOB more frequently with activity. Stating her legs feel a lot heavier. +2 pitting edema noted to bilateral lower. Bilateral thighs +2 pitting edema. Copious amounts of clear drainage noted to LLE dressing and RLE. Areas cleansed with NS and DSD applied. OPAL wraps applied. Pt stating to feel much better. Denied wanting a breathing treatment at this time. Pt resting in bed with call light in reach.
[2019-07-24] MEDS: Ipratropium/Albuterol Sulfate 3 ML AMPUL.NEB INHALATION ×3 (06:32→19:20)
[2019-07-24] MEDS: Budesonide Respules 0.5 MG/2 ML AMPUL.NEB. INHALATION ×2 (06:32→19:20)
[2019-07-24 06:35] LABS: Bedside Glucose 126 mg/dL (70-110)
[2019-07-24] MEDS: Glimepiride 2 MG Tablet PO (08:30)
[2019-07-24] MEDS: Iron Polysaccharide Complex 150 MG CAPSULE PO (08:30)
[2019-07-24 08:35] LABS: Anion Gap 4 (5-15); BUN 27 mg/dL (7-18); BUN/Creat Ratio 29.6 RATIO (10-20); Calcium,Total 8.6 mg/dL (8.5-10.1); Chloride 108 mmol/L (98-107); Creatinine, Serum 0.91 mg/dL (0.55-1.02); EST Glomerular Filtration Rate 63 mL/min (>60); Est Glom Filt Rate - Afr Amer 77 mL/min (>60); Estimated Creatinine Clearance 37.83 ml/min; Glucose 133 mg/dL (74-106); Potassium 4.4 mmol/L (3.5-5.1); Sodium Level 140 mmol/L (136-145)
[2019-07-24] MEDS: Furosemide 40 MG Tablet PO (08:41)
[2019-07-24] MEDS: Albuterol 2.5 MG/3 ML VIAL.NEB. INHALATION (11:02)
--- NOTE | 2019-07-24 13:00 | NURSING ---
off unit via bed for echo, daughter at side.
--- NOTE | 2019-07-24 17:18 | PCA ---
RN Janiya got Heart rate and blood pressure of patient, i got temp, respirations, an pulse ox
--- NOTE | 2019-07-24 17:35 | RAD_ITS ---
STUDY: X-RAY CHEST REASON FOR EXAM: Female, 78 years old. Chest pain TECHNIQUE: PA and lateral views of the chest COMPARISON: X-ray chest July 16, 2019 FINDINGS: Right greater than left base infiltrates are present with small right pleural effusion. No significant pleural effusion is present on the left. There is no pneumothorax. The heart is normal in size. The visualized osseous structures are within normal limits. RAD/Chest PA and Lateral IMPRESSION: Right greater than left lung base infiltrates with small right effusion. Electronically Signed: Kermit Dubon, at 19:10 EST Tel , Service support ,
--- NOTE | 2019-07-24 20:37 | NURSING ---
Dr. Nieves notified of chest xray results. New orders entered.
[2019-07-24] MEDS: Atorvastatin Calcium 20 MG Tablet PO (20:41)
[2019-07-24] MEDS: traZODone 50 MG Tablet PO (20:41)
[2019-07-24] MEDS: Mirtazapine 15 MG Tablet 7.5 MG PO (20:42)
[2019-07-24] MEDS: MELATONIN 3 MG TABLET PO (20:42)
[2019-07-24 21:40] LABS: Bedside Glucose 149 mg/dL (70-110)
[2019-07-25] VITALS (10 sets, daily range): BP systolic 143–155; BP diastolic 60–61; PULSE 70–86; RESP 18–28; TEMP 36.9; O2SAT 93–99
[2019-07-25] MEDS: Albuterol 2.5 MG/3 ML VIAL.NEB. INHALATION ×2 (03:00→10:00)
[2019-07-25] MEDS: Lidocaine 5% Patch 1 PATCH TOPICAL (05:05)
[2019-07-25] MEDS: Acetaminophen 325 MG Tablet 650 MG PO ×3 (05:05→20:44)
[2019-07-25] MEDS: APIXABAN 2.5 MG TABLET PO ×2 (05:05→17:46)
[2019-07-25] MEDS: Senna/Docusate Sodium 1 Tablet PO ×2 (05:06→17:46)
[2019-07-25] MEDS: Metoprolol Tartrate 25 MG Tablet PO ×2 (05:06→17:46)
[2019-07-25] MEDS: Polyethylene Glycol 3350 17 GM PACKET PO (05:06)
[2019-07-25] MEDS: Pantoprazole Sodium 40 MG Tablet PO (05:06)
[2019-07-25] MEDS: Nystatin Powder 15gm Bottle 1 APPLIC TOPICAL ×2 (05:21→20:41)
[2019-07-25] MEDS: Menthol/Lanolin/Calamine/Znox 113 GM Tube 1 APPLIC TOPICAL ×2 (05:21→20:37)
[2019-07-25 06:26] LABS: Bedside Glucose 145 mg/dL (70-110)
[2019-07-25] MEDS: Ipratropium/Albuterol Sulfate 3 ML AMPUL.NEB INHALATION ×3 (07:07→19:43)
[2019-07-25] MEDS: Budesonide Respules 0.5 MG/2 ML AMPUL.NEB. INHALATION ×2 (07:07→19:43)
[2019-07-25] MEDS: Glimepiride 2 MG Tablet PO (09:20)
[2019-07-25] MEDS: Iron Polysaccharide Complex 150 MG CAPSULE PO (09:20)
[2019-07-25] MEDS: Furosemide 40 MG Tablet PO ×2 (09:21→17:46)
--- NOTE | 2019-07-25 15:40 | RAD_ITS ---
STUDY: X-RAY - LEFT KNEE REASON FOR EXAM: Female, 78 years old. patient complains of left knee pain TECHNIQUE: 2 view(s) of the knee. COMPARISON: None. FINDINGS: Status post total left knee replacement changes are seen with implants appearing in good position. There is no evidence of implant loosening or new associated fracture or dislocation. There may be a small suprapatellar effusion. RAD/Knee 1 or 2 Views IMPRESSION: Status post total left knee replacement changes seen with implants appearing in good position. There is no evidence of implant loosening or new associated fracture or dislocation. There may be a small suprapatellar effusion. Electronically Signed: Gerald Calabrese MD at 21:17 EST , Service support ,
[2019-07-25] MEDS: Atorvastatin Calcium 20 MG Tablet PO (20:44)
[2019-07-25] MEDS: traZODone 50 MG Tablet PO (20:44)
[2019-07-25] MEDS: MELATONIN 3 MG TABLET PO (20:44)
[2019-07-25] MEDS: Mirtazapine 15 MG Tablet 7.5 MG PO (20:44)
[2019-07-25 21:11] LABS: Bedside Glucose 162 mg/dL (70-110)
[2019-07-26 06:21] LABS: Bedside Glucose 131 mg/dL (70-110)
[2019-07-26] MEDS: Polyethylene Glycol 3350 17 GM PACKET PO (06:23)
[2019-07-26] MEDS: Senna/Docusate Sodium 1 Tablet PO ×2 (06:23→17:42)
[2019-07-26] MEDS: Pantoprazole Sodium 40 MG Tablet PO (06:23)
[2019-07-26] MEDS: APIXABAN 2.5 MG TABLET PO ×2 (06:24→17:42)
[2019-07-26] MEDS: Lidocaine 5% Patch 1 PATCH TOPICAL (06:24)
[2019-07-26] MEDS: Acetaminophen 325 MG Tablet 650 MG PO ×3 (06:24→21:53)
[2019-07-26] MEDS: Nystatin Powder 15gm Bottle 1 APPLIC TOPICAL ×2 (06:25→21:57)
[2019-07-26] MEDS: Menthol/Lanolin/Calamine/Znox 113 GM Tube 1 APPLIC TOPICAL ×2 (06:25→21:57)
[2019-07-26 06:26] VITALS: BP 146/64; PULSE 84
[2019-07-26] MEDS: Metoprolol Tartrate 25 MG Tablet PO ×2 (06:26→17:42)
[2019-07-26] MEDS: Ipratropium/Albuterol Sulfate 3 ML AMPUL.NEB INHALATION ×2 (06:31→13:39)
[2019-07-26 07:06] VITALS: PULSE 89; RESP 19; O2SAT 90
[2019-07-26 07:57] LABS: Anion Gap 6 (5-15); BUN 25 mg/dL (7-18); BUN/Creat Ratio 25.8 RATIO (10-20); Calcium,Total 8.5 mg/dL (8.5-10.1); Chloride 106 mmol/L (98-107); Creatinine, Serum 0.97 mg/dL (0.55-1.02); EST Glomerular Filtration Rate 59 mL/min (>60); Est Glom Filt Rate - Afr Amer 71 mL/min (>60); Estimated Creatinine Clearance 35.49 ml/min; Glucose 132 mg/dL (74-106); Potassium 4.1 mmol/L (3.5-5.1); Sodium Level 141 mmol/L (136-145)
[2019-07-26] MEDS: Glimepiride 2 MG Tablet PO (08:57)
[2019-07-26] MEDS: Iron Polysaccharide Complex 150 MG CAPSULE PO (09:01)
[2019-07-26] MEDS: Furosemide 40 MG Tablet PO (12:03)
[2019-07-26 13:40] VITALS: PULSE 82; RESP 18
[2019-07-26 14:14] VITALS: BP 143/65; PULSE 84; RESP 18; TEMP 36.9; O2SAT 100
[2019-07-26 17:42] VITALS: PULSE 84
[2019-07-26] MEDS: MELATONIN 3 MG TABLET PO (21:53)
[2019-07-26] MEDS: traZODone 50 MG Tablet PO (21:54)
[2019-07-26] MEDS: Atorvastatin Calcium 20 MG Tablet PO (21:54)
[2019-07-26] MEDS: Mirtazapine 15 MG Tablet 7.5 MG PO (21:55)
[2019-07-26 22:00] LABS: Bedside Glucose 134 mg/dL (70-110)
[2019-07-27] MEDS: Acetaminophen 325 MG Tablet 650 MG PO ×3 (05:49→21:22)
[2019-07-27 05:50] VITALS: BP 159/71; PULSE 85
[2019-07-27] MEDS: Furosemide 40 MG Tablet PO ×2 (05:50→14:12)
[2019-07-27] MEDS: Senna/Docusate Sodium 1 Tablet PO ×2 (05:50→17:35)
[2019-07-27] MEDS: Metoprolol Tartrate 25 MG Tablet PO ×2 (05:50→17:34)
[2019-07-27] MEDS: APIXABAN 2.5 MG TABLET PO ×2 (05:50→17:35)
[2019-07-27] MEDS: Pantoprazole Sodium 40 MG Tablet PO (05:50)
[2019-07-27] MEDS: Polyethylene Glycol 3350 17 GM PACKET PO (05:50)
[2019-07-27] MEDS: Lidocaine 5% Patch 1 PATCH TOPICAL (05:51)
[2019-07-27] MEDS: Menthol/Lanolin/Calamine/Znox 113 GM Tube 1 APPLIC TOPICAL ×2 (06:05→21:26)
[2019-07-27] MEDS: Nystatin Powder 15gm Bottle 1 APPLIC TOPICAL ×2 (06:06→21:26)
[2019-07-27 06:21] LABS: Bedside Glucose 135 mg/dL (70-110)
[2019-07-27 07:09] VITALS: PULSE 79; RESP 20; O2SAT 90
[2019-07-27] MEDS: Budesonide Respules 0.5 MG/2 ML AMPUL.NEB. INHALATION ×2 (07:09→19:22)
[2019-07-27] MEDS: Ipratropium/Albuterol Sulfate 3 ML AMPUL.NEB INHALATION ×3 (07:09→19:22)
[2019-07-27] MEDS: Glimepiride 2 MG Tablet PO (09:15)
[2019-07-27] MEDS: Iron Polysaccharide Complex 150 MG CAPSULE PO (09:16)
[2019-07-27] MEDS: Alendronate Sodium 70 MG Tablet PO (09:16)
[2019-07-27 13:06] VITALS: PULSE 83; RESP 18
[2019-07-27 14:21] VITALS: BP 157/69; PULSE 84; RESP 18; TEMP 32.3; O2SAT 93
[2019-07-27 17:34] VITALS: PULSE 86
--- NOTE | 2019-07-27 18:44 | NURSING ---
Pt with diarrhea, order to collect stool specimen. Special contact isolation precautions started
[2019-07-27 19:22] VITALS: PULSE 76; RESP 24
[2019-07-27] MEDS: MELATONIN 3 MG TABLET PO (21:21)
[2019-07-27] MEDS: traZODone 50 MG Tablet PO (21:21)
[2019-07-27] MEDS: Mirtazapine 15 MG Tablet 7.5 MG PO (21:22)
[2019-07-27] MEDS: Atorvastatin Calcium 20 MG Tablet PO (21:23)
[2019-07-27 22:05] LABS: Bedside Glucose 123 mg/dL (70-110)
[2019-07-28] VITALS (8 sets, daily range): BP systolic 143–153; BP diastolic 63–64; PULSE 72–87; RESP 16–20; TEMP 36.8; O2SAT 92–98
[2019-07-28] MEDS: Furosemide 40 MG Tablet PO ×2 (05:36→13:28)
[2019-07-28] MEDS: Metoprolol Tartrate 25 MG Tablet PO ×2 (05:37→17:34)
[2019-07-28] MEDS: APIXABAN 2.5 MG TABLET PO ×2 (05:37→17:34)
[2019-07-28] MEDS: Pantoprazole Sodium 40 MG Tablet PO (05:37)
[2019-07-28] MEDS: Acetaminophen 325 MG Tablet 650 MG PO ×3 (05:37→21:11)
[2019-07-28] MEDS: Menthol/Lanolin/Calamine/Znox 113 GM Tube 1 APPLIC TOPICAL ×2 (05:38→21:14)
[2019-07-28] MEDS: Nystatin Powder 15gm Bottle 1 APPLIC TOPICAL ×2 (05:53→21:14)
[2019-07-28] MEDS: Lidocaine 5% Patch 1 PATCH TOPICAL (05:53)
[2019-07-28 06:36] LABS: Bedside Glucose 143 mg/dL (70-110)
[2019-07-28 06:38] LABS: Anion Gap 5 (5-15); BUN 21 mg/dL (7-18); Calcium,Total 8.8 mg/dL (8.5-10.1); Chloride 107 mmol/L (98-107); EST Glomerular Filtration Rate 57 mL/min (>60); Est Glom Filt Rate - Afr Amer 69 mL/min (>60); Estimated Creatinine Clearance 34.42 ml/min; Glucose 124 mg/dL (74-106); Potassium 3.9 mmol/L (3.5-5.1); Sodium Level 143 mmol/L (136-145)
[2019-07-28] MEDS: Ipratropium/Albuterol Sulfate 3 ML AMPUL.NEB INHALATION ×2 (07:35→12:46)
[2019-07-28] MEDS: Iron Polysaccharide Complex 150 MG CAPSULE PO (08:48)
[2019-07-28] MEDS: Glimepiride 2 MG Tablet PO (08:48)
--- NOTE | 2019-07-28 08:56 | NURSING ---
ALL CARE GIVEN IN ROOM DUE TO PT IN PRECAUTIONS.
--- NOTE | 2019-07-28 13:42 | NURSING ---
norovirus negative, pt removed from precautions
[2019-07-28] MEDS: Albuterol 2.5 MG/3 ML VIAL.NEB. INHALATION (16:20)
--- NOTE | 2019-07-28 19:56 | PCM.TCUNOT ---
Subjective: Resident seen in room, she is sitting in recliner. She had diarrhea, but her enteric panel was negative. She continues to progress slowly with therapy. Vitals/I&O's: Vital Signs Temp Pulse Resp BP Pulse Ox 98.2 F 81 18 153/64 H 94 07/28/19 15:28 07/28/19 17:34 07/28/19 16:20 07/28/19 17:34 07/28/19 15:28 Oxygen Flow Rate (L/min) 2 Oxygen Delivery Method [3] Room Air Oxygen Delivery Method [2] Room Air Oxygen Delivery Method [1 ( Room Air Initial Baseline)] Oxygen Delivery Method Room Air Weight: 107.275 kg Body Mass Index (BMI) 47.8 Finger Stick Blood Glucose 211 Intake and Output for Last 24 Hours 07/26/19 07/27/19 07/28/19 23:59 23:59 23:59 Intake Total 360 / 360 720 / 720 360 / 360 Output Total 425 / 425 1600 / 1600 1050 / 1050 Balance -65 / -65 -880 / -880 -690 / -690 Microbiology Past 72 Hours 07/27/19 21:50 Stool Enteric Bacteriology - Final Laboratory Results 07/27/19 21:59: POC Glucose 123 H 07/28/19 05:35: Sodium 143, Potassium 3.9, Chloride 107, Carbon Dioxide 31.0, Anion Gap 5, BUN 21 H, Creatinine 1.00, Estim Creat Clear Calc 34.42, Est GFR (MDRD) Af Amer 69, Est GFR (MDRD) Non-Af 57 L, BUN/Creatinine Ratio 21.0 H, Glucose 124 H, Calcium 8.8 07/28/19 06:29: POC Glucose 143 H Past Medical History Past Medical History (Chronic Problems): Chronic Problems (Last Reviewed 07/15/19 @ 13:20 by Alessandra Valdivia) History of respiratory failure (Chronic) extubated 06/18/2019 @ [facility] Paroxysmal atrial fibrillation (Chronic) Sick sinus syndrome (Chronic) Edema (Chronic) Anticoagulant long-term use (Chronic) Anemia, unspecified (Chronic) CKD (chronic kidney disease) (Chronic) Essential hypertension (Chronic) DM2 (diabetes mellitus, type 2) (Chronic) COPD (chronic obstructive pulmonary disease) (Chronic) GERD (gastroesophageal reflux disease) (Chronic) Methicillin resistant Staph aureus culture positive (Chronic) Cellulitis of right ankle (Chronic) Osteoporosis (Chronic) Anxiety (Chronic) GERD (gastroesophageal reflux disease) (Chronic) Insomnia (Chronic) Hyperlipidemia (Chronic) Medical History: Medical History (Last Reviewed 07/15/19 @ 13:20 by Alessandra Valdivia) Cardiogenic shock (Acute) R57.0 Bradycardia (Acute) R00.1 History of respiratory failure (Chronic) Z87.09 extubated 06/18/2019 @ [facility] Paroxysmal atrial fibrillation (Chronic) I48.0 Sick sinus syndrome (Chronic) I49.5 Renal failure (ARF), acute on chronic (Acute) N17.9, N18.9 Acute hyperkalemia (Acute) E87.5 Edema (Chronic) R60.9 Anticoagulant long-term use (Chronic) Z79.01 Anemia, unspecified (Chronic) D64.9 CKD (chronic kidney disease) (Chronic) N18.9 Essential hypertension (Chronic) I10 DM2 (diabetes mellitus, type 2) (Chronic) E11.9 COPD (chronic obstructive pulmonary disease) (Chronic) J44.9 GERD (gastroesophageal reflux disease) (Chronic) K21.9 Debility (Acute) R53.81 Methicillin resistant Staph aureus culture positive (Chronic) Z22.322 Hyperlipidemia (Chronic) E78.5 Anemia (Ruled-out) D64.9 Allergies Penicillins [PCN] Allergy (Verified 07/14/19 09:52) Other shellfish derived Allergy (Verified 07/14/19 09:52) Other Home Medications: Ambulatory Orders Medication Instructions Recorded Acetaminophen 1,000 mg PO TID 06/16/19 Albuterol Sulfate 2.5 mg IH BID 06/16/19 Albuterol Sulfate 2.5 mg IH Q4H PRN PRN 06/16/19 Alendronate Sodium 70 mg PO CORRAL 06/16/19 Doxycycline 100 mg PO BID 06/16/19 Famotidine 20 mg PO DAILY 06/16/19 Fluticasone/Salmeterol [Airduo 1 puff IH BID 06/16/19 Respiclick 113-14 Mcg] Insulin Glargine,Hum.rec.anlog 15 unit SQ QHS 06/16/19 [Basaglar Kwikpen U-100] Insulin Lispro [Humalog KwikPen] 100 unit SQ 0730,1630 06/16/19 Ipratropium/Albuterol Sulfate 3 ml INHALATION Q6H PRN PRN 06/16/19 [Duoneb] Magnesium Oxide [Magnesium] 400 mg PO BID 06/16/19 Metoprolol Tartrate 25 mg PO BID 06/16/19 Simvastatin 40 mg PO QHS 06/16/19 traZODone [Desyrel] 50 mg PO QHS 06/16/19 Furosemide 40 mg PO DAILY 06/20/19 apixaban 5 mg tablet 2.5 mg PO BID tab 07/15/19 Surgical History: Surgical History (Last Reviewed 07/15/19 @ 13:20 by Alessandra Valdivia) History of arthroscopic knee surgery Z98.890 History of cholecystectomy Z90.49 History of foot surgery Z98.890 X3 History of hemorrhoidectomy Z98.890 History of tonsillectomy Z90.89 History of tubal ligation Z98.51 Surgical History: noncontributory Psychiatric 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 PATIENT OBSERVATION ASSISTANT History: No pertinent PATIENT OBSERVATION ASSISTANT history Lives: Retirement Smoking Status: Former smoker Tobacco Use: Cigarettes Alcohol: None Drugs: None - *Family History Maternal History Items: No pertinent history Paternal History Items: No pertinent history Capacity - Capacity Assessment Tool Can the patient make a choice & communicate that choice?: Yes Can the patient understand benefits, risks and alternatives?: Yes Can the patient make a logical, rational choice?: Yes Is the choice the patient makes consistent w/ their values?: Yes Is there an impending, emergent risk to the patient?: No Does the patient have an Advance Directive?: No Is there a Surrogate Available?: Yes i.e. HCPOA: Yes i.e. close relative (spouse, child, parent, sibling)?: Yes Review of Systems Constitutional: Denies: Chills, Fever, Weight Change HEENT: Denies: Head Aches, Sinus Congestion, Sinus Drainage Cardiovascular: Reports: Edema. Denies: Chest Pain, Palpitations Respiratory: Denies: Cough, Shortness of breath at rest, Sputum production Gastrointestinal: Denies: Abdominal Pain, Nausea, Vomiting Genitourinary: Denies: Dysuria Musculoskeletal: Denies: Joint Pain, Joint Tenderness Skin: Denies: Rash, Wounds Neurological: Denies: Numbness, Tingling, Focal weakness Psychiatric: Denies: Anxiety, Depression, Homicidal Ideations, Suicidal Ideations Hematologic/ Lymphatic: Denies: Easy Bruising, Easy Bleeding Patient Problems: Active and Suspected Problems (Last Reviewed 07/15/19 @ 13:20 by Alessandra Valdivia) Cardiogenic shock (Acute) Debility (Acute) - Physical Exam Vitals/I&O's: Vital Signs Temp Pulse Resp BP Pulse Ox 98.2 F 81 18 153/64 H 94 07/28/19 15:28 07/28/19 17:34 07/28/19 16:20 07/28/19 17:34 07/28/19 15:28 Oxygen Flow Rate (L/min) 2 Oxygen Delivery Method [3] Room Air Oxygen Delivery Method [2] Room Air Oxygen Delivery Method [1 ( Room Air Initial Baseline)] Oxygen Delivery Method Room Air Weight: 107.275 kg Body Mass Index (BMI) 47.8 Finger Stick Blood Glucose 211 Intake and Output for Last 24 Hours 07/26/19 07/27/19 07/28/19 23:59 23:59 23:59 Intake Total 360 / 360 720 / 720 360 / 360 Output Total 425 / 425 1600 / 1600 1050 / 1050 Balance -65 / -65 -880 / -880 -690 / -690 General: Alert, Oriented x3, Cooperative HEENT: Atraumatic, PERRLA, EOMI, Normocephalic Neck: Supple, No JVD, Negative Carotid Bruits Lungs: Clear to auscultation, Normal air movement Cardiovascular: Regular rate, No murmurs Abdomen: Bowel Sounds Present, Soft, Non Tender Extremities: Capillary Refill Less than 3 Seconds, Edema - Bilateral lower extremities, thighs down. Skin: No rashes, No breakdown Musculoskeletal: No Tenderness to Palpation of Joints or Extremities Neurological: Cranial nerves II-XII grossly intact Psych/Mental Status: Normal Affect, Appropriate Microbiology Past 72 Hours 07/27/19 21:50 Stool Enteric Bacteriology - Final Laboratory Results 07/27/19 21:59: POC Glucose 123 H 07/28/19 05:35: Sodium 143, Potassium 3.9, Chloride 107, Carbon Dioxide 31.0, Anion Gap 5, BUN 21 H, Creatinine 1.00, Estim Creat Clear Calc 34.42, Est GFR (MDRD) Af Amer 69, Est GFR (MDRD) Non-Af 57 L, BUN/Creatinine Ratio 21.0 H, Glucose 124 H, Calcium 8.8 07/28/19 06:29: POC Glucose 143 H Current Medications Acetaminophen (Tylenol) 650 mg PO TID [facility] Last Admin: 07/28/19 13:28 Dose: 650 mg Documented by: Al Hydroxide/Mg Hydroxide (Mylanta Ii) 15 ml PO Q4H PRN PRN PRN Reason: HEARTBURN Last Admin: 07/23/19 14:58 Dose: 15 ml Documented by: Albuterol Sulfate (Ventolin Aerosols) 2.5 mg INHALATION Q2H PRN PRN PRN Reason: WHEEZING Last Admin: 07/28/19 16:20 Dose: 2.5 mg Documented by: Albuterol/Ipratropium (Duoneb) 3 ml INHALATION Q6HWA.RT [facility] Last Admin: 07/28/19 12:46 Dose: 3 ml Documented by: Alendronate Sodium (Fosamax) 70 mg PO Corral@1000 [facility] Last Admin: 07/27/19 09:16 Dose: 70 mg Documented by: Apixaban (Eliquis) 2.5 mg PO BID [facility] Last Admin: 07/28/19 17:34 Dose: 2.5 mg Documented by: Atorvastatin Calcium (Lipitor) 20 mg PO QHS [facility] Last Admin: 07/27/19 21:23 Dose: 20 mg Documented by: Benzonatate (Tessalon Perle) 200 mg PO TID PRN PRN PRN Reason: COUGH Last Admin: 07/19/19 23:32 Dose: 200 mg Documented by: Bisacodyl (Dulcolax) 10 mg PO DAILY PRN PRN Reason: Constipation Last Admin: 07/20/19 08:56 Dose: 10 mg Documented by: Budesonide (Pulmicort Aerosol) 0.5 mg INHALATION Q12H.RT [facility] Last Admin: 07/27/19 19:22 Dose: 0.5 mg Documented by: Calamine/Phenol (Calmoseptine Ointment) 1 applic TOPICAL 0600,2200 [facility]; Protocol Last Admin: 07/28/19 05:38 Dose: 1 applicatio Documented by: Cholecalciferol (Vitamin D (25mcg)) 1,000 unit PO DAILY [facility] Last Admin: 07/28/19 05:36 Dose: 1,000 unit Documented by: Furosemide (Lasix) 40 mg PO BID@0600,1300 [facility] Last Admin: 07/28/19 13:28 Dose: 40 mg Documented by: Glimepiride (Amaryl) 2 mg PO DAILY@0800 [facility] Last Admin: 07/28/19 08:48 Dose: 2 mg Documented by: Glucagon () 1 mg IM .X1 PRN PRN Reason: Hypoglycemia Dextrose (Dextrose 10%-Water) 250 mls @ 999 mls/hr IV .Q16M PRN; Protocol PRN Reason: HYPOGLYCEMIA Lidocaine (Lidoderm Patch) 1 patch TOPICAL DAILY [facility]; Protocol Last Admin: 07/28/19 05:53 Dose: 1 patch Documented by: Melatonin (Melatonin) 3 mg PO QHS [facility] Last Admin: 07/27/19 21:21 Dose: 3 mg Documented by: Menthol (Bengay Vanishing Scent) 1 applic TOPICAL 4X/DAY PRN PRN PRN Reason: Pain or Fever Last Admin: 07/25/19 15:23 Dose: 1 applic Documented by: Metoprolol Tartrate (Lopressor (Beta Lucina)) 25 mg PO BID [facility] Last Admin: 07/28/19 17:34 Dose: 25 mg Documented by: Mirtazapine (Remeron) 7.5 mg PO QHS [facility] Last Admin: 07/27/19 21:22 Dose: 7.5 mg Documented by: Multi-Ingredient Cream (Eucerin) 1 applic TOPICAL 2200 [facility]; Protocol Last Admin: 07/27/19 21:26 Dose: 1 applicatio Documented by: Nystatin (Mycostatin Powder) 1 applic TOPICAL 0600,2200 [facility]; Protocol Last Admin: 07/28/19 05:53 Dose: 1 applicatio Documented by: Pantoprazole Sodium (Protonix) 40 mg PO DAILY [facility] Last Admin: 07/28/19 05:37 Dose: 40 mg Documented by: Polyethylene Glycol (Miralax) 17 gm PO DAILY [facility] Last Admin: 07/28/19 05:38 Dose: Not Given Documented by: [facility]accharide [facility] Last Admin: 07/28/19 08:48 Dose: 150 mg Documented by: Potassium Chloride (K-Dur) [facility] Last Admin: 07/28/19 08:49 Dose: 20 meq Documented by: Senna/Docusate Sodium (Senokot-S, Rachel-Colace) 1 tablet PO BID [facility] Last Admin: 07/28/19 17:27 Dose: Not Given Documented by: Sodium Chloride () 10 - 40 ml IV UD PRN PRN Reason: SALINE FLUSH Last Admin: 07/23/19 08:40 Dose: 20 ml Documented by: Sodium Chloride () 10 - 40 ml IV UD PRN PRN Reason: SALINE FLUSH Sodium Chloride () 10 - 40 ml IV UD PRN PRN Reason: SALINE FLUSH Throat Lozenges (Cepacol Sore Throat Lozenge) 1 lozenge MUCOUS MEM Q2H PRN PRN PRN Reason: SORE THROAT Last Admin: 07/23/19 11:44 Dose: 1 lozenge Documented by: Trazodone HCl (Desyrel) 50 mg PO QHS [facility] Last Admin: 07/27/19 21:21 Dose: 50 mg Documented by: Assessment/Plan All Active Problems (Last Reviewed 07/15/19 @ 13:20 by Alessandra Valdivia) Cardiogenic shock (Acute) Bradycardia (Acute) Renal failure (ARF), acute on chronic (Acute) Acute hyperkalemia (Acute) Debility (Acute) Unresponsiveness (Resolved) History of respiratory failure with hypo (Resolved) Anemia (Ruled-out) 78 year old female with below past medical history hospitalized for hyperkalemia, acute kidney injury, complicated by respiratory failure requiring intubation, admitted to TCU with debility, here for rehabilitation, strengthening, prior to discharge home alone. Resident would like to attend a wedding in [place] August 10, 2019. Debility - PT/OT. Dysphagia - ST. Pain - Tylenol 650MG TID, Lidoderm patch daily, Menthol 4x/day PRN. Bowel - Miralax 17GM daily, Senna/colace 1 tablet BID, Dulcolax 10MG daily PRN. DVT prophylaxis - Not necessary, already on Eliquis. COPD - Pulmicort 0.5MG Q12H, Duoneb 3ML [id number], Albuterol 2.5Mg Q2H PRN wheezing. Osteoporosis - Alendronate 70MG weekly. Atrial Fibrillation - Metoprolol 25MG BID, Eliquis 2.5MG BID. Hyperlipidemia - Atorvastatin 20MG QHS. GERD - Pantoprazole 40MG daily, Mylanta II 15ML Q4H PRN. Edema - Lasix 40MG twice daily, compression to bilateral lower extremities. Acute on chronic kidney failure - Monitor BMP closely. Nutrition - Glucerna 120ML 4x/day. Diabetes Mellitus II - Glimepiride 2MG QAM, monitor blood sugars. Hypertension - Lisinopril 10MG daily. Hypomagnesemia - Magnesium Oxide 400MG twice daily. Insomnia - Trazodone 50MG QHS, Melatonin 3MG QHS. Sore throat - Cepacol 1 lozenge Q2H PRN. Cough - Tessalon Perles 200MG TID PRN. Vitamin D deficiency - D3 1000IU daily. Iron deficiency Anemia - Ferrex 150MG daily. Skin irritation - Calmoseptine BID, Eucerin daily. Appetite loss - Mirtazapine 7.5MG QHS. Tinea Corporis - Nystatin powder BID. Hypokalemia - K-Dur 20MEQ daily.
[2019-07-28] MEDS: traZODone 50 MG Tablet PO (21:11)
[2019-07-28] MEDS: MELATONIN 3 MG TABLET PO (21:11)
[2019-07-28] MEDS: Mirtazapine 15 MG Tablet 7.5 MG PO (21:11)
[2019-07-28] MEDS: Atorvastatin Calcium 20 MG Tablet PO (21:11)
[2019-07-28 22:16] LABS: Bedside Glucose 127 mg/dL (70-110)
[2019-07-29 04:19] VITALS: BP 155/65; PULSE 84
[2019-07-29] MEDS: Acetaminophen 325 MG Tablet 650 MG PO ×3 (04:19→21:12)
[2019-07-29] MEDS: APIXABAN 2.5 MG TABLET PO ×2 (04:19→16:57)
[2019-07-29] MEDS: Furosemide 40 MG Tablet PO ×2 (04:19→13:38)
[2019-07-29] MEDS: Pantoprazole Sodium 40 MG Tablet PO (04:19)
[2019-07-29] MEDS: Metoprolol Tartrate 25 MG Tablet PO ×2 (04:19→16:57)
[2019-07-29] MEDS: Polyethylene Glycol 3350 17 GM PACKET PO (04:19)
[2019-07-29] MEDS: Lidocaine 5% Patch 1 PATCH TOPICAL (04:20)
[2019-07-29] MEDS: Menthol/Lanolin/Calamine/Znox 113 GM Tube 1 APPLIC TOPICAL ×2 (04:25→21:17)
[2019-07-29] MEDS: Nystatin Powder 15gm Bottle 1 APPLIC TOPICAL ×2 (04:26→21:17)
[2019-07-29 06:30] LABS: Bedside Glucose 117 mg/dL (70-110)
--- NOTE | 2019-07-29 06:36 | NURSING ---
pt dressing to left leg changed. moderate amount of drainage. no open area noted. kash wraps applied bialterally. dressing to rt upper thigh with moderat amount of drainage. new dressing appilied. no open area noted.
[2019-07-29 07:03] VITALS: PULSE 78; RESP 18; O2SAT 97
[2019-07-29] MEDS: Ipratropium/Albuterol Sulfate 3 ML AMPUL.NEB INHALATION ×3 (07:03→19:00)
[2019-07-29] MEDS: Budesonide Respules 0.5 MG/2 ML AMPUL.NEB. INHALATION ×2 (07:03→19:00)
[2019-07-29] MEDS: Iron Polysaccharide Complex 150 MG CAPSULE PO (08:30)
[2019-07-29] MEDS: Glimepiride 2 MG Tablet PO (08:30)
--- NOTE | 2019-07-29 13:46 | NURSING ---
New order to DC velázquez, pt ambulating more and doing better with diuresing. Pt wants it removed later after 4p due to getting recent dose lasix.
--- NOTE | 2019-07-29 13:48 | NURSING ---
LLE drsg changed d/t leaking thru ABD/kerlix and OPAL wrap. RT upper thigh drsg dry & intact.
[2019-07-29 14:01] VITALS: BP 186/64; PULSE 90; RESP 18; TEMP 36.7; O2SAT 92
[2019-07-29 14:18] VITALS: PULSE 90; RESP 18
[2019-07-29 16:57] VITALS: PULSE 90
[2019-07-29] MEDS: Senna/Docusate Sodium 1 Tablet PO (16:57)
--- NOTE | 2019-07-29 17:17 | RAD_ITS ---
STUDY: X-RAY CHEST REASON FOR EXAM: Female, 78 years old. Shortness of breath TECHNIQUE: PA and lateral views of the chest COMPARISON: X-ray chest July 24, 2019 FINDINGS: There is a small to moderate right pleural effusion with adjacent atelectasis/consolidation. The left lung and pleural space are clear. There is no pneumothorax. The heart is normal in size. The visualized osseous structures are within normal limits. RAD/Chest PA and Lateral IMPRESSION: Small to moderate right pleural effusion with adjacent atelectasis/consolidation. Electronically Signed: Kermit Dubon, at 19:22 EST Tel , Service support ,
--- NOTE | 2019-07-29 17:17 | CASEMGMT ---
Social Work Spoke with patient and daughter about DC date 08/06. Both agreeable. Dtr requesting [facility] - provided list and she will notify SW of choice. Dtr to discuss with family any DME needs. Will continue to follow. Moira Mcdonald, ESCALATOR MECHANIC ELL TEACHER
--- NOTE | 2019-07-29 18:30 | RAD_ITS ---
STUDY: X-RAY - ABDOMEN/PELVIS REASON FOR EXAM: Female, 78 years old. Pain TECHNIQUE: Frontal views of the abdomen COMPARISON: X-ray abdomen July 20, 2019 FINDINGS: There is no bowel obstruction. There is air and stool to the level of the rectum. The visualized osseous structures are within normal limits. RAD/Abdomen Single View IMPRESSION: No bowel obstruction. Electronically Signed: Kermit Dubon, at 19:21 EST Tel , Service support ,
--- NOTE | 2019-07-29 18:57 | NURSING ---
Garcia removed, 500cc clear yellow urine emptied from bag. pt tolerated well. nicole area cleansed with pts own nicole wipes.
[2019-07-29 19:00] VITALS: PULSE 86; RESP 18; O2SAT 97
--- NOTE | 2019-07-29 20:36 | DCINST_ITS ---
- Discharge Diagnoses Current Active Problems: Current Active and Chronic Problems (Last Reviewed 07/15/19 @ 13:20 by Alessandra Valdivia) Cardiogenic shock (Acute) Edema (Chronic) Debility (Acute) Methicillin resistant Staph aureus culture positive (Chronic) Cellulitis of right ankle (Chronic) Osteoporosis (Chronic) Anxiety (Chronic) GERD (gastroesophageal reflux disease) (Chronic) Insomnia (Chronic) You will use the following diet at home:: Regular, Fluid restricted (specify 2000 mls, 1500 mls) - 1500 mls. Your food should be the consistency of: Regular Your liquids should be the consistency of: Regular/Thin Discharge Activity: Return to Normal Activity, May Shower, Use Walker Weight Bearing Status: Weight bearing as tolerated Call your doctor if you observe: Fever of 101 or Higher, Inability to urinate, Inability to have a bowel movement, Shortness of breath, Chest pain, Uncontrolled pain Instructions: Thoracentesis Allergies/Adverse Reactions: Allergies Penicillins [PCN] Allergy (Verified 07/14/19 09:52) Other shellfish derived Allergy (Verified 07/14/19 09:52) Other Medications to take at Discharge Acetaminophen 1,000 mg PO TID 06/16/19 Albuterol Sulfate 2.5 mg IH BID 06/16/19 Albuterol Sulfate 2.5 mg IH Q4H PRN PRN 06/16/19 Alendronate Sodium 70 mg PO ELIZONDO 06/16/19 Fluticasone/Salmeterol [Airduo Respiclick 113-14 Mcg] 1 puff IH BID 06/16/19 Ipratropium/Albuterol Sulfate [Duoneb] 3 ml INHALATION Q6H PRN PRN 06/16/19 Metoprolol Tartrate 25 mg PO BID 06/16/19 Simvastatin 40 mg PO QHS 06/16/19 traZODone [Desyrel] 50 mg PO QHS 06/16/19 apixaban 5 mg tablet 2.5 mg PO BID tab 07/15/19 Albuterol Aerosols [Ventolin Aerosols] 2.5 mg INHALATION Q2H PRN PRN vial.neb. 07/29/19 Apixaban [Eliquis] 2.5 mg PO BID #60 tab 07/29/19 Cholecalciferol (VIT D3) [Vitamin D3] 1,000 unit PO DAILY tab 07/29/19 Furosemide [Lasix] 40 mg PO BID@0600,1300 #60 tab 07/29/19 Glimepiride [Amaryl] 2 mg PO DAILY@0800 tab 07/29/19 Iron Polysaccharide Complex [Ferrex 150] 150 mg PO DAILYCM #30 cap 07/29/19 Lidocaine [Lidoderm Patch] 1 patch TOPICAL DAILY #30 patch 07/29/19 Menthol [Bengay Vanishing Scent] 1 applic TOPICAL 4X/DAY PRN PRN tube 07/29/19 Menthol/Lanolin/Calamine/Znox [Calmoseptine Ointment] 1 applic TOPICAL 0600,2200 tube 07/29/19 Mineral Oil/Petrolatum,White [Eucerin] 1 applic TOPICAL 2200 jar 07/29/19 Mirtazapine [Remeron] 7.5 mg PO QHS #30 tab 07/29/19 Nystatin Powder [Mycostatin Powder] 1 applic TOPICAL 0600,2200 bottle 07/29/19 Pantoprazole Sodium [Protonix] 40 mg PO DAILY #30 tab 07/29/19 Polyethylene Glycol 3350 [Miralax] 17 gm PO DAILY #30 packet 07/29/19 Senna/Docusate Sodium [Senokot-S] 1 tab PO BID #60 tab 07/29/19 The following prescriptions were given: Apixaban [Eliquis] 2.5 mg PO BID #60 tab Transmission Status: Pending to [id number] Iron Polysaccharide Complex [Ferrex 150] 150 mg PO DAILYCM #30 cap Transmission Status: Pending to [id number] Furosemide [Lasix] 40 mg PO BID@0600,1300 #60 tab Transmission Status: Pending to [id number] Lidocaine [Lidoderm Patch] 1 patch TOPICAL DAILY #30 patch Transmission Status: Pending to [id number] Polyethylene Glycol 3350 [Miralax] 17 gm PO DAILY #30 packet Transmission Status: Pending to [id number] Pantoprazole Sodium [Protonix] 40 mg PO DAILY #30 tab Transmission Status: Pending to [id number] Mirtazapine [Remeron] 7.5 mg PO QHS #30 tab Transmission Status: Pending to [id number] Senna/Docusate Sodium [Senokot-S] 1 tab PO BID #60 tab Transmission Status: Pending to [id number] Primary Care Physician: Fam Nieves Chi, MD [COURTESY STAFF PHYSICIAN] - Please follow up with your Primary Care Physician in: 1 week. Test Results: Test results from this visit will be discussed in further detail at your follow- up appointment, if applicable. Please Follow Up With: Dr. Cruz When: 2 weeks. Please Follow Up With: Dr. Vickers When: 2 weeks. Please Follow Up With: Pulmonary function test Please Follow Up With: Echo complete Proposed Discharge Date: 08/07/19
--- NOTE | 2019-07-29 20:38 | DS.PCM_ITS ---
Discharge Date and Diagnosis - Problem List Patient Problems: Active and Suspected Problems (Last Reviewed 07/15/19 @ 13:20 by Alessandra Valdivia) Cardiogenic shock (Acute) Debility (Acute) Date of Admission: 06/20/19 Date of Discharge: 08/07/19 - Primary Discharge Diagnosis Active and Suspected Problems (Last Reviewed 07/15/19 @ 13:20 by Alessandra Valdivia) Cardiogenic shock (Acute) Debility (Acute) - Secondary Discharge Diagnosis Chronic Problems (Last Reviewed 07/15/19 @ 13:20 by Alessandra Valdivia) History of respiratory failure (Chronic) extubated 06/18/2019 @ [facility] Paroxysmal atrial fibrillation (Chronic) Sick sinus syndrome (Chronic) Edema (Chronic) Anticoagulant long-term use (Chronic) Anemia, unspecified (Chronic) CKD (chronic kidney disease) (Chronic) Essential hypertension (Chronic) DM2 (diabetes mellitus, type 2) (Chronic) COPD (chronic obstructive pulmonary disease) (Chronic) GERD (gastroesophageal reflux disease) (Chronic) Methicillin resistant Staph aureus culture positive (Chronic) Cellulitis of right ankle (Chronic) Osteoporosis (Chronic) Anxiety (Chronic) GERD (gastroesophageal reflux disease) (Chronic) Insomnia (Chronic) Hyperlipidemia (Chronic) Hospital Course and Treatment Imaging Results: 07/29/19 17:17 Chest PA and Lateral [RAD] Urgent 07/29/19 18:30 XRAY Abdomen [Abdomen Single View] [RAD] Urgent 06/25/19 15:38 Diet: Regular Diet Is pt able to select menu?: Yes Clinical Impression(s) from Imaging Studies Thoracentesis Ultrasound 07/16/19 08:03 IMPRESSION: Ultrasound-guided right thoracentesis. Electronically Signed: Yonatan Howe, at 15:12 EST , Service support , Knee X-Ray 07/25/19 15:40 IMPRESSION: Status post total left knee replacement changes seen with implants appearing in good position. There is no evidence of implant loosening or new associated fracture or dislocation. There may be a small suprapatellar effusion. Electronically Signed: Gerald Calabrese MD at 21:17 EST , Service support , Chest X-Ray 07/29/19 17:17 IMPRESSION: Small to moderate right pleural effusion with adjacent atelectasis/consolidation. Electronically Signed: Kermit Dubon, at 19:22 EST Tel , Service support , KUB X-Ray 07/29/19 18:30 IMPRESSION: No bowel obstruction. Electronically Signed: Kermit Dubon, at 19:21 EST Tel , Service support , Labs (Last 48 Hours) 07/27/19 07/28/19 07/28/19 21:59 05:35 06:29 Sodium 143 Potassium 3.9 Chloride 107 Carbon Dioxide 31.0 Anion Gap 5 BUN 21 H Creatinine 1.00 Estim Creat Clear Calc 34.42 Est GFR (MDRD) Af Amer 69 Est GFR (MDRD) Non-Af 57 L BUN/Creatinine Ratio 21.0 H Glucose 124 H Calcium 8.8 POC Glucose 123 H 143 H 07/28/19 07/29/19 22:08 06:16 Sodium Potassium Chloride Carbon Dioxide Anion Gap BUN Creatinine Estim Creat Clear Calc Est GFR (MDRD) Af Amer Est GFR (MDRD) Non-Af BUN/Creatinine Ratio Glucose Calcium POC Glucose 127 H 117 H Microbiology 07/27/19 21:50 Stool Enteric Bacteriology - Final Operations: None Procedures: None Summary of Care Provided: The patient is a 78 year old Female with below past medical history hospitalized for hyperkalemia, acute kidney injury, complicated by respiratory failure requiring intubation, admitted to TCU with debility, here for rehabilitation, strengthening, prior to discharge home alone. Resident would like to attend a wedding in [place] August 10, 2019. Discharge home with daughter, Home Health Care for PT/OT/ST. Patient Problems: Active and Suspected Problems (Last Reviewed 07/15/19 @ 13:20 by Alessandra Valdivia) Cardiogenic shock (Acute) Debility (Acute) - Physical Exam Vitals/I&O's: Vital Signs Temp Pulse Resp BP Pulse Ox 98.1 F 86 18 186/64 H 97 07/29/19 14:01 07/29/19 19:00 07/29/19 19:00 07/29/19 14:01 07/29/19 19:00 Oxygen Flow Rate (L/min) 1.5 Oxygen Delivery Method [3] Room Air Oxygen Delivery Method [2] Room Air Oxygen Delivery Method [1 ( Room Air Initial Baseline)] Oxygen Delivery Method Room Air Weight: 107.056 kg Body Mass Index (BMI) 47.8 Finger Stick Blood Glucose 211 Intake and Output for Last 24 Hours 07/27/19 07/28/19 07/29/19 23:59 23:59 23:59 Intake Total 720 / 720 480 / 480 720 / 720 Output Total 1600 / 1600 2049 / 2049 1400 / 1400 Balance -880 / -880 -1570 / -1570 -680 / -680 Microbiology Past 72 Hours 07/27/19 21:50 Stool Enteric Bacteriology - Final Laboratory Results 07/28/19 22:08: POC Glucose 127 H 07/29/19 06:16: POC Glucose 117 H Current Medications Acetaminophen (Tylenol) 650 mg PO TID [facility] Last Admin: 07/29/19 14:54 Dose: 650 mg Documented by: Al Hydroxide/Mg Hydroxide (Mylanta Ii) 15 ml PO Q4H PRN PRN PRN Reason: HEARTBURN Last Admin: 07/23/19 14:58 Dose: 15 ml Documented by: Albuterol Sulfate (Ventolin Aerosols) 2.5 mg INHALATION Q2H PRN PRN PRN Reason: WHEEZING Last Admin: 07/28/19 16:20 Dose: 2.5 mg Documented by: Albuterol/Ipratropium (Duoneb) 3 ml INHALATION Q6HWA.RT [facility] Last Admin: 07/29/19 19:00 Dose: 3 ml Documented by: Alendronate Sodium (Fosamax) 70 mg PO Elizondo@1000 [facility] Last Admin: 07/27/19 09:16 Dose: 70 mg Documented by: Apixaban (Eliquis) 2.5 mg PO BID [facility] Last Admin: 07/29/19 16:57 Dose: 2.5 mg Documented by: Atorvastatin Calcium (Lipitor) 20 mg PO QHS [facility] Last Admin: 07/28/19 21:11 Dose: 20 mg Documented by: Benzonatate (Tessalon Perle) 200 mg PO TID PRN PRN PRN Reason: COUGH Last Admin: 07/19/19 23:32 Dose: 200 mg Documented by: Bisacodyl (Dulcolax) 10 mg PO DAILY PRN PRN Reason: Constipation Last Admin: 07/20/19 08:56 Dose: 10 mg Documented by: Budesonide (Pulmicort Aerosol) 0.5 mg INHALATION Q12H.RT [facility] Last Admin: 07/29/19 19:00 Dose: 0.5 mg Documented by: Calamine/Phenol (Calmoseptine Ointment) 1 applic TOPICAL 0600,2200 [facility]; Protocol Last Admin: 07/29/19 04:25 Dose: 1 applicatio Documented by: Cholecalciferol (Vitamin D (25mcg)) 1,000 unit PO DAILY [facility] Last Admin: 07/29/19 04:19 Dose: 1,000 unit Documented by: Furosemide (Lasix) 40 mg PO BID@0600,1300 [facility] Last Admin: 07/29/19 13:38 Dose: 40 mg Documented by: Glimepiride (Amaryl) 2 mg PO DAILY@0800 [facility] Last Admin: 07/29/19 08:30 Dose: 2 mg Documented by: Glucagon () 1 mg IM .X1 PRN PRN Reason: Hypoglycemia Dextrose (Dextrose 10%-Water) 250 mls @ 999 mls/hr IV .Q16M PRN; Protocol PRN Reason: HYPOGLYCEMIA Lidocaine (Lidoderm Patch) 1 patch TOPICAL DAILY [facility]; Protocol Last Admin: 07/29/19 04:20 Dose: 1 patch Documented by: Melatonin (Melatonin) 3 mg PO QHS [facility] Last Admin: 07/28/19 21:11 Dose: 3 mg Documented by: Menthol (Bengay Vanishing Scent) 1 applic TOPICAL 4X/DAY PRN PRN PRN Reason: Pain or Fever Last Admin: 07/25/19 15:23 Dose: 1 applic Documented by: Metoprolol Tartrate (Lopressor (Beta Lucina)) 25 mg PO BID [facility] Last Admin: 07/29/19 16:57 Dose: 25 mg Documented by: Mirtazapine (Remeron) 7.5 mg PO QHS [facility] Last Admin: 07/28/19 21:11 Dose: 7.5 mg Documented by: Multi-Ingredient Cream (Eucerin) 1 applic TOPICAL 2199 [facility]; Protocol Last Admin: 07/28/19 21:15 Dose: 1 applicatio Documented by: Nystatin (Mycostatin Powder) 1 applic TOPICAL 0600,2200 [facility]; Protocol Last Admin: 07/29/19 04:26 Dose: 1 applicatio Documented by: Pantoprazole Sodium (Protonix) 40 mg PO DAILY [facility] Last Admin: 07/29/19 04:19 Dose: 40 mg Documented by: Polyethylene Glycol (Miralax) 17 gm PO DAILY [facility] Last Admin: 07/29/19 04:19 Dose: 17 gm Documented by: Polysaccharide Iron [facility] (Ferrex 150) [facility] Last Admin: 07/29/19 08:30 Dose: 150 mg Documented by: Potassium Chloride (K-Dur) [facility] meq [facility] Last Admin: 07/29/19 08:30 Dose: 20 meq Documented by: Senna/Docusate Sodium (Senokot-S, Rachel-Colace) 1 tablet PO BID [facility] Last Admin: 07/29/19 16:57 Dose: 1 tablet Documented by: Sodium Chloride () 10 - 40 ml IV UD PRN PRN Reason: SALINE FLUSH Last Admin: 07/23/19 08:40 Dose: 20 ml Documented by: Sodium Chloride () 10 - 40 ml IV UD PRN PRN Reason: SALINE FLUSH Sodium Chloride () 10 - 40 ml IV UD PRN PRN Reason: SALINE FLUSH Throat Lozenges (Cepacol Sore Throat Lozenge) 1 lozenge MUCOUS MEM Q2H PRN PRN PRN Reason: SORE THROAT Last Admin: 07/23/19 11:44 Dose: 1 lozenge Documented by: Trazodone HCl (Desyrel) 50 mg PO QHS [facility] Last Admin: 07/28/19 21:11 Dose: 50 mg Documented by: Discharge Diet: No Restrictions Discharge Activity: Return to Normal Activity, May Shower, Use Walker Weight Bearing Status: Weight bearing as tolerated Call your doctor if you observe: Fever of 101 or Higher, Inability to urinate, Inability to have a bowel movement, Shortness of breath, Chest pain, Uncontrolled pain Home Medications: Medications to take at Discharge Acetaminophen 1,000 mg PO TID 06/16/19 Albuterol Sulfate 2.5 mg IH BID 06/16/19 Albuterol Sulfate 2.5 mg IH Q4H PRN PRN 01/20/20 Alendronate Sodium 70 mg PO ELIZONDO 06/16/19 Fluticasone/Salmeterol [Airduo Respiclick 113-14 Mcg] 1 puff IH BID 06/16/19 Ipratropium/Albuterol Sulfate [Duoneb] 3 ml INHALATION Q6H PRN PRN 06/16/19 Metoprolol Tartrate 25 mg PO BID 06/16/19 Simvastatin 40 mg PO QHS 06/16/19 traZODone [Desyrel] 50 mg PO QHS 06/16/19 apixaban 5 mg tablet 2.5 mg PO BID tab 07/15/19 Albuterol Aerosols [Ventolin Aerosols] 2.5 mg INHALATION Q2H PRN PRN vial.neb. 07/29/19 Apixaban [Eliquis] 2.5 mg PO BID #60 tab 07/29/19 Cholecalciferol (VIT D3) [Vitamin D3] 1,000 unit PO DAILY tab 07/29/19 Furosemide [Lasix] 40 mg PO BID@0600,1300 #60 tab 07/29/19 Glimepiride [Amaryl] 2 mg PO DAILY@0800 tab 07/29/19 Iron Polysaccharide Complex [Ferrex 150] 150 mg PO DAILYCM #30 cap 07/29/19 Lidocaine [Lidoderm Patch] 1 patch TOPICAL DAILY #30 patch 07/29/19 Menthol [Bengay Vanishing Scent] 1 applic TOPICAL 4X/DAY PRN PRN tube 07/29/19 Menthol/Lanolin/Calamine/Znox [Calmoseptine Ointment] 1 applic TOPICAL 0600,2200 tube 07/29/19 Mineral Oil/Petrolatum,White [Eucerin] 1 applic TOPICAL 2200 jar 07/29/19 Mirtazapine [Remeron] 7.5 mg PO QHS #30 tab 07/29/19 Nystatin Powder [Mycostatin Powder] 1 applic TOPICAL 0600,2200 bottle 07/29/19 Pantoprazole Sodium [Protonix] 40 mg PO DAILY #30 tab 07/29/19 Polyethylene Glycol 3350 [Miralax] 17 gm PO DAILY #30 packet 07/29/19 Senna/Docusate Sodium [Senokot-S] 1 tab PO BID #60 tab 07/29/19 Following Prescrptions Were Given to Patient: Apixaban [Eliquis] 2.5 mg PO BID #60 tab Transmission Status: Pending to [id number] Iron Polysaccharide Complex [Ferrex 150] 150 mg PO DAILYCM #30 cap Transmission Status: Pending to [id number] Furosemide [Lasix] 40 mg PO BID@0600,1300 #60 tab Transmission Status: Pending to [id number] Lidocaine [Lidoderm Patch] 1 patch TOPICAL DAILY #30 patch Transmission Status: Pending to [id number] Polyethylene Glycol 3350 [Miralax] 17 gm PO DAILY #30 packet Transmission Status: Pending to [id number] Pantoprazole Sodium [Protonix] 40 mg PO DAILY #30 tab Transmission Status: Pending to [id number] Mirtazapine [Remeron] 7.5 mg PO QHS #30 tab Transmission Status: Pending to [id number] Senna/Docusate Sodium [Senokot-S] 1 tab PO BID #60 tab Transmission Status: Pending to [id number] Primary Care Physician: Fam Nieves Chi, MD [COURTESY STAFF PHYSICIAN] - Please follow up with your Primary Care Physician in: 1 week. Please Follow Up With: Dr. Cruz When: 2 weeks. Please Follow Up With: Dr. Vickers When: 2 weeks. Please Follow Up With: Pulmonary function test Please Follow Up With: Echo complete Patient Instructions: Thoracentesis Disposition: Home with Home Health Minutes spent on discharge:: 35 Patient Condition:: Stable Medical Necessity - Tobacco Use Smoking Status: Former smoker Tobacco Use: Cigarettes Meaningful Use Info Meaningful Use Diagnoses (Choose all that apply): None applicable
[2019-07-29] MEDS: traZODone 50 MG Tablet PO (21:12)
[2019-07-29] MEDS: Mirtazapine 15 MG Tablet 7.5 MG PO (21:12)
[2019-07-29] MEDS: Atorvastatin Calcium 20 MG Tablet PO (21:12)
[2019-07-29] MEDS: MELATONIN 3 MG TABLET PO (21:12)
[2019-07-29 21:51] LABS: Bedside Glucose 160 mg/dL (70-110)
[2019-07-30] VITALS (7 sets, daily range): BP systolic 155; BP diastolic 56–79; PULSE 79–91; RESP 16–19; TEMP 36.6; O2SAT 94–98
[2019-07-30 05:40] LABS: Absolute Lymphocyte Count 1.04 X10^3/uL (0.83-4.51); Absolute Neutrophil Count 4.1 X10^3/uL (2.0-7.7); Basophil# 0.03 X10^3/uL; Basophil% 0.5 % (0-1); Eosinophil# 0.21 X10^3/uL; Eosinophils% 3.5 % (0-5); Hematocrit 31.3 % (37-47); Hemoglobin 9.4 g/dL (12.0-15.0); Lymphocyte # 1.04 X10^3/ul (4.0); Lymphocyte % 17.5 % (19-41); Mean Corpuscular Hgb 30.6 pg (27.0-32.0); Monocyte% 8.4 % (0-10); NRBC Flagged by Analyzer 0 % (0-5); Neutrophil # 4.13 X10^3/uL (2.7-7.7); Neutrophil % 69.8 % (47-70); POSITIVE MORPHOLOGY YES; Platelet Count 227 K/mm3 (150-450); RBC Distribution Width CV 17.6 % (11.6-14.6); RBC Distribution Width SD 66.7 fl (35.1-43.9); Red Blood Count 3.07 M/mm3 (4.2-5.4); White Blood Count 5.9 K/mm3 (4.4-11.0)
[2019-07-30 05:58] LABS: Anion Gap 5 (5-15); BUN 22 mg/dL (7-18); BUN/Creat Ratio 23.1 RATIO (10-20); Calcium,Total 8.3 mg/dL (8.5-10.1); Chloride 104 mmol/L (98-107); Creatinine, Serum 0.95 mg/dL (0.55-1.02); EST Glomerular Filtration Rate 60 mL/min (>60); Est Glom Filt Rate - Afr Amer 73 mL/min (>60); Estimated Creatinine Clearance 36.23 ml/min; Glucose 120 mg/dL (74-106); Potassium 3.7 mmol/L (3.5-5.1); Sodium Level 142 mmol/L (136-145)
[2019-07-30] MEDS: Lidocaine 5% Patch 1 PATCH TOPICAL (06:05)
[2019-07-30] MEDS: Menthol/Lanolin/Calamine/Znox 113 GM Tube 1 APPLIC TOPICAL ×2 (06:05→21:10)
[2019-07-30] MEDS: Furosemide 40 MG Tablet PO ×2 (06:06→14:07)
[2019-07-30] MEDS: APIXABAN 2.5 MG TABLET PO ×2 (06:06→17:25)
[2019-07-30] MEDS: Senna/Docusate Sodium 1 Tablet PO ×2 (06:06→17:25)
[2019-07-30] MEDS: Pantoprazole Sodium 40 MG Tablet PO (06:06)
[2019-07-30] MEDS: Polyethylene Glycol 3350 17 GM PACKET PO (06:06)
[2019-07-30] MEDS: Acetaminophen 325 MG Tablet 650 MG PO ×3 (06:06→21:08)
[2019-07-30] MEDS: Metoprolol Tartrate 25 MG Tablet PO ×2 (06:07→17:25)
[2019-07-30] MEDS: Nystatin Powder 15gm Bottle 1 APPLIC TOPICAL ×2 (06:11→21:09)
[2019-07-30 06:20] LABS: Bedside Glucose 114 mg/dL (70-110)
[2019-07-30 06:30] LABS: Differential Indicated SCAN CRITERIA MET
[2019-07-30 06:49] LABS: Anisocytosis 1+; Differential Comment SCANNED; Microcytosis 1+; Ovalocyte RARE; Platelet Estimate ADEQUATE (ADEQ); Polychromasia RARE
[2019-07-30] MEDS: Budesonide Respules 0.5 MG/2 ML AMPUL.NEB. INHALATION ×2 (07:47→19:13)
[2019-07-30] MEDS: Ipratropium/Albuterol Sulfate 3 ML AMPUL.NEB INHALATION ×3 (07:47→19:13)
[2019-07-30] MEDS: Glimepiride 2 MG Tablet PO (08:25)
[2019-07-30] MEDS: Iron Polysaccharide Complex 150 MG CAPSULE PO (08:25)
[2019-07-30 21:01] LABS: Bedside Glucose 108 mg/dL (70-110)
[2019-07-30] MEDS: MELATONIN 3 MG TABLET PO (21:08)
[2019-07-30] MEDS: traZODone 50 MG Tablet PO (21:08)
[2019-07-30] MEDS: Atorvastatin Calcium 20 MG Tablet PO (21:08)
[2019-07-30] MEDS: Mirtazapine 15 MG Tablet 7.5 MG PO (21:08)
[2019-07-31] VITALS (7 sets, daily range): BP systolic 142–151; BP diastolic 55–66; PULSE 75–93; RESP 18–20; TEMP 36.8; O2SAT 93–98
[2019-07-31] MEDS: Polyethylene Glycol 3350 17 GM PACKET PO (05:25)
[2019-07-31] MEDS: APIXABAN 2.5 MG TABLET PO ×2 (05:26→17:08)
[2019-07-31] MEDS: Pantoprazole Sodium 40 MG Tablet PO (05:26)
[2019-07-31] MEDS: Senna/Docusate Sodium 1 Tablet PO ×2 (05:26→17:08)
[2019-07-31] MEDS: Acetaminophen 325 MG Tablet 650 MG PO ×3 (05:26→21:32)
[2019-07-31] MEDS: Metoprolol Tartrate 25 MG Tablet PO ×2 (05:26→17:08)
[2019-07-31] MEDS: Furosemide 40 MG Tablet PO ×2 (05:26→13:08)
[2019-07-31] MEDS: Lidocaine 5% Patch 1 PATCH TOPICAL (05:26)
[2019-07-31] MEDS: Nystatin Powder 15gm Bottle 1 APPLIC TOPICAL ×2 (05:27→21:40)
[2019-07-31] MEDS: Menthol/Lanolin/Calamine/Znox 113 GM Tube 1 APPLIC TOPICAL ×2 (05:27→21:40)
[2019-07-31 06:26] LABS: Bedside Glucose 132 mg/dL (70-110)
[2019-07-31] MEDS: Glimepiride 2 MG Tablet PO (08:15)
[2019-07-31] MEDS: Iron Polysaccharide Complex 150 MG CAPSULE PO (08:15)
--- NOTE | 2019-07-31 09:56 | NURSING ---
pt off unit with daughter via WC to PFT appt.
--- NOTE | 2019-07-31 12:26 | CASEMGMT ---
Addendum entered by Moira Mcdonald 07/31/19 14:37: Dtr chose [facility] - referral made for PT/OT/SN. Original Note: Social Work Spoke with patient's daughter to answer questions and discuss DC plans/needs. Explained HHC and DME needs and insurance coverage. Provided another list of HHC agencies to dtr. Dtr requesting hospital bed, 3-in-1 commode, w/c, nebulizer/aerosols - referral made to [facility]. Will continue to follow. Moira Mcdonald, PANEL WIRER PHARMACIST TECHNICIAN
[2019-07-31] MEDS: Ipratropium/Albuterol Sulfate 3 ML AMPUL.NEB INHALATION ×2 (13:15→19:00)
--- NOTE | 2019-07-31 15:45 | PFTCOMP ---
COMPLETE PULMONARY FUNCTION TEST INTERPRETATION Brief HPI: Patient is a 78 year old female, currently under the care of myself, who presents to [facility] for complete pulmonary function tests secondary to diagnosis of respiratory failure. Respiratory therapist reports good effort and reproducible results. Interpretation: Forced expiration spirometry shows a severe large airways obstructive ventilatory defect with an FEV1 of 39% predicted. There is no significant bronchodilator response by strict ATS criteria. Spirograms are of good quality and plateau slowly, indicating slowly emptying areas of the lungs. The respiratory flow volume loop shows decreased expiratory flow rates at all lung volumes consistent with airway obstruction. Lung volumes by body plethysmography show a decreased total lung capacity at 3.03 L, 73% predicted. FRC and RV are elevated out of proportion. Lung volume measurements are consistent with air-trapping. Diffusion capacity by carbon monoxide is at the lower limit of normal at 69% predicted. The airway resistance is elevated. No previous pulmonary function tests were available for review. Impression: Severe mixed ventilatory defect with a symmetric reduction diffusing capacity
[2019-07-31] MEDS: Budesonide Respules 0.5 MG/2 ML AMPUL.NEB. INHALATION (19:00)
[2019-07-31] MEDS: Mirtazapine 15 MG Tablet 7.5 MG PO (21:31)
[2019-07-31] MEDS: traZODone 50 MG Tablet PO (21:31)
[2019-07-31] MEDS: Atorvastatin Calcium 20 MG Tablet PO (21:31)
[2019-07-31] MEDS: MELATONIN 3 MG TABLET PO (21:31)
[2019-07-31 21:35] LABS: Bedside Glucose 172 mg/dL (70-110)
[2019-08-01] VITALS (7 sets, daily range): BP systolic 133–166; BP diastolic 66–84; PULSE 75–93; RESP 16–20; TEMP 36.8; O2SAT 16–91
[2019-08-01] MEDS: Menthol/Lanolin/Calamine/Znox 113 GM Tube 1 APPLIC TOPICAL ×2 (04:03→21:25)
[2019-08-01] MEDS: Senna/Docusate Sodium 1 Tablet PO (04:04)
[2019-08-01] MEDS: APIXABAN 2.5 MG TABLET PO ×2 (04:04→16:10)
[2019-08-01] MEDS: Pantoprazole Sodium 40 MG Tablet PO (04:04)
[2019-08-01] MEDS: Furosemide 40 MG Tablet PO ×2 (04:05→16:10)
[2019-08-01] MEDS: Metoprolol Tartrate 25 MG Tablet PO ×2 (04:05→16:10)
[2019-08-01] MEDS: Nystatin Powder 15gm Bottle 1 APPLIC TOPICAL ×2 (04:06→21:25)
[2019-08-01] MEDS: Lidocaine 5% Patch 1 PATCH TOPICAL (04:08)
[2019-08-01] MEDS: Acetaminophen 325 MG Tablet 650 MG PO ×3 (05:31→21:04)
[2019-08-01 06:21] LABS: Anion Gap 4 (5-15); BUN 20 mg/dL (7-18); Calcium,Total 8.2 mg/dL (8.5-10.1); Chloride 102 mmol/L (98-107); Creatinine, Serum 0.95 mg/dL (0.55-1.02); EST Glomerular Filtration Rate 60 mL/min (>60); Est Glom Filt Rate - Afr Amer 73 mL/min (>60); Estimated Creatinine Clearance 36.23 ml/min; Glucose 125 mg/dL (74-106); Potassium 3.5 mmol/L (3.5-5.1); Sodium Level 141 mmol/L (136-145)
[2019-08-01 06:40] LABS: Bedside Glucose 129 mg/dL (70-110)
[2019-08-01] MEDS: Budesonide Respules 0.5 MG/2 ML AMPUL.NEB. INHALATION (06:54)
[2019-08-01] MEDS: Ipratropium/Albuterol Sulfate 3 ML AMPUL.NEB INHALATION ×2 (06:54→13:55)
[2019-08-01] MEDS: Glimepiride 2 MG Tablet PO (08:30)
[2019-08-01] MEDS: Iron Polysaccharide Complex 150 MG CAPSULE PO (08:30)
--- NOTE | 2019-08-01 10:40 | NURSING ---
[facility] CALLED AND STATED THEY ONLY HAVE A 20 IN WHEEL CHAIR AT THIS TIME,BUT WHEN THEY GET THE 18 IN THEY WILL BRING IT IN. REPORTED TO MAUDE SAMPSON AND MARY HALL.
--- NOTE | 2019-08-01 15:32 | PN_ITS ---
Subjective: Resident has left knee pain, she is status post left total knee replacement, X- ray shows good alignment left prosthetic knee. She continues to have pain. After informed consent, the left knee was draped and prepped in sterile manner. Anesthesia with Vapocoolant spray, left knee injected with Kenalog 40MG, Lidocaine 1% 1ML using suprapatellar approach, no immediate complications. Vitals/I&O's: Vital Signs Temp Pulse Resp BP Pulse Ox 98.2 F 93 18 133/66 H 90 07/31/19 13:41 08/01/19 14:02 08/01/19 14:02 08/01/19 04:05 08/01/19 06:56 Oxygen Flow Rate (L/min) 1.5 Oxygen Delivery Method [] Room Air Oxygen Delivery Method [] Room Air Oxygen Delivery Method [] Room Air Oxygen Delivery Method Room Air Weight: 103.929 kg Body Mass Index (BMI) 47.8 Finger Stick Blood Glucose 211 Intake and Output for Last 24 Hours 07/30/19 07/31/19 08/01/19 23:59 23:59 23:59 Intake Total 600 / 600 600 / 600 480 / 480 Balance 600 / 600 600 / 600 480 / 480 Laboratory Results 07/31/19 21:33: POC Glucose 172 H 08/01/19 05:10: Sodium 141, Potassium 3.5, Chloride 102, Carbon Dioxide 35.0 H, Anion Gap 4 L, BUN 20 H, Creatinine 0.95, Estim Creat Clear Calc 36.23, Est GFR (MDRD) Af Amer 73, Est GFR (MDRD) Non-Af 60, BUN/Creatinine Ratio 21.0 H, Glucose 125 H, Calcium 8.2 L 08/01/19 06:27: POC Glucose 129 H Past Medical History Past Medical History (Chronic Problems): Chronic Problems (Last Reviewed 07/15/19 @ 13:20 by Alessandra Valdivia) History of respiratory failure (Chronic) extubated 06/18/2019 @ [facility] Paroxysmal atrial fibrillation (Chronic) Sick sinus syndrome (Chronic) Edema (Chronic) Anticoagulant long-term use (Chronic) Anemia, unspecified (Chronic) CKD (chronic kidney disease) (Chronic) Essential hypertension (Chronic) DM2 (diabetes mellitus, type 2) (Chronic) COPD (chronic obstructive pulmonary disease) (Chronic) GERD (gastroesophageal reflux disease) (Chronic) Methicillin resistant Staph aureus culture positive (Chronic) Cellulitis of right ankle (Chronic) Osteoporosis (Chronic) Anxiety (Chronic) GERD (gastroesophageal reflux disease) (Chronic) Insomnia (Chronic) Hyperlipidemia (Chronic) Medical History: Medical History (Last Reviewed 07/15/19 @ 13:20 by Alessandra Valdivia) Cardiogenic shock (Acute) R57.0 Bradycardia (Acute) R00.1 History of respiratory failure (Chronic) Z87.09 extubated 06/18/2019 @ [facility] Paroxysmal atrial fibrillation (Chronic) I48.0 Sick sinus syndrome (Chronic) I49.5 Renal failure (ARF), acute on chronic (Acute) N17.9, N18.9 Acute hyperkalemia (Acute) E87.5 Edema (Chronic) R60.9 Anticoagulant long-term use (Chronic) Z79.01 Anemia, unspecified (Chronic) D64.9 CKD (chronic kidney disease) (Chronic) N18.9 Essential hypertension (Chronic) I10 DM2 (diabetes mellitus, type 2) (Chronic) E11.9 COPD (chronic obstructive pulmonary disease) (Chronic) J44.9 GERD (gastroesophageal reflux disease) (Chronic) K21.9 Debility (Acute) R53.81 Methicillin resistant Staph aureus culture positive (Chronic) Z22.322 Hyperlipidemia (Chronic) E78.5 Anemia (Ruled-out) D64.9 Allergies Penicillins [PCN] Allergy (Verified 07/14/19 09:52) Other shellfish derived Allergy (Verified 07/14/19 09:52) Other Home Medications: Ambulatory Orders Medication Instructions Recorded Acetaminophen 1,000 mg PO TID 06/16/19 Albuterol Sulfate 2.5 mg IH BID 06/16/19 Albuterol Sulfate 2.5 mg IH Q4H PRN PRN 06/16/19 Alendronate Sodium 70 mg PO CORRAL 06/16/19 Fluticasone/Salmeterol [Airduo 1 puff IH BID 06/16/19 Respiclick 113-14 Mcg] Ipratropium/Albuterol Sulfate 3 ml INHALATION Q6H PRN PRN 06/16/19 [Duoneb] Metoprolol Tartrate 25 mg PO BID 06/16/19 Simvastatin 40 mg PO QHS 06/16/19 traZODone [Desyrel] 50 mg PO QHS 01/20/20 apixaban 5 mg tablet 2.5 mg PO BID tab 07/15/19 Albuterol Aerosols [Ventolin 2.5 mg INHALATION Q2H PRN PRN 07/29/19 Aerosols] vial.neb. Apixaban [Eliquis] 2.5 mg PO BID #60 tab 07/29/19 Cholecalciferol (VIT D3) [Vitamin 1,000 unit PO DAILY tab 07/29/19 D3] Furosemide [Lasix] 40 mg PO BID@0600,1300 #60 tab 07/29/19 Glimepiride [Amaryl] 2 mg PO DAILY@0800 tab 07/29/19 Iron Polysaccharide Complex 150 mg PO DAILYCM #30 cap 07/29/19 [Ferrex 150] Lidocaine [Lidoderm Patch] 1 patch TOPICAL DAILY #30 patch 07/29/19 Menthol [Bengay Vanishing Scent] 1 applic TOPICAL 4X/DAY PRN PRN 07/29/19 tube Menthol/Lanolin/Calamine/Znox 1 applic TOPICAL 0600,2200 tube 07/29/19 [Calmoseptine Ointment] Mineral Oil/Petrolatum,White 1 applic TOPICAL 2200 jar 07/29/19 [Eucerin] Mirtazapine [Remeron] 7.5 mg PO QHS #30 tab 07/29/19 Nystatin Powder [Mycostatin Powder] 1 applic TOPICAL 0600,2200 bottle 07/29/19 Pantoprazole Sodium [Protonix] 40 mg PO DAILY #30 tab 07/29/19 Polyethylene Glycol 3350 [Miralax] 17 gm PO DAILY #30 packet 07/29/19 Senna/Docusate Sodium [Senokot-S] 1 tab PO BID #60 tab 07/29/19 Surgical History: Surgical History (Last Reviewed 07/15/19 @ 13:20 by Alessandra Valdivia) History of arthroscopic knee surgery Z98.890 History of cholecystectomy Z90.49 History of foot surgery Z98.890 X3 History of hemorrhoidectomy Z98.890 History of tonsillectomy Z90.89 History of tubal ligation Z98.51 Surgical History: noncontributory Psychiatric 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 Lives: Intermediate Smoking Status: Former smoker Tobacco Use: Cigarettes Alcohol: None Drugs: None - *Family History Maternal History Items: No pertinent history Paternal History Items: No pertinent history Capacity - Capacity Assessment Tool Can the patient make a choice & communicate that choice?: Yes Can the patient understand benefits, risks and alternatives?: Yes Can the patient make a logical, rational choice?: Yes Is the choice the patient makes consistent w/ their values?: Yes Is there an impending, emergent risk to the patient?: No Does the patient have an Advance Directive?: No Is there a Surrogate Available?: Yes i.e. HCPOA: Yes i.e. close relative (spouse, child, parent, sibling)?: Yes Review of Systems Constitutional: Denies: Chills, Fever, Weight Change HEENT: Denies: Head Aches, Sinus Congestion, Sinus Drainage Cardiovascular: Denies: Chest Pain, Palpitations Respiratory: Denies: Cough, Shortness of breath at rest, Sputum production Gastrointestinal: Denies: Abdominal Pain, Nausea, Vomiting Genitourinary: Denies: Dysuria Musculoskeletal: Reports: Joint Pain - Left knee pain.. Denies: Joint Tenderness Skin: Denies: Rash, Wounds Neurological: Denies: Numbness, Tingling, Focal weakness Psychiatric: Denies: Anxiety, Depression, Homicidal Ideations, Suicidal Ideations Hematologic/ Lymphatic: Denies: Easy Bruising, Easy Bleeding Patient Problems: Active and Suspected Problems (Last Reviewed 07/15/19 @ 13:20 by Alessandra Valdivia) Cardiogenic shock (Acute) Debility (Acute) - Physical Exam Vitals/I&O's: Vital Signs Temp Pulse Resp BP Pulse Ox 98.2 F 93 18 133/66 H 90 07/31/19 13:41 08/01/19 14:02 08/01/19 14:02 08/01/19 04:05 08/01/19 06:56 Oxygen Flow Rate (L/min) 1.5 Oxygen Delivery Method [3] Room Air Oxygen Delivery Method [2] Room Air Oxygen Delivery Method [1 ( Room Air Initial Baseline)] Oxygen Delivery Method Room Air Weight: 103.929 kg Body Mass Index (BMI) 47.8 Finger Stick Blood Glucose 211 Intake and Output for Last 24 Hours 07/30/19 07/31/19 08/01/19 23:59 23:59 23:59 Intake Total 600 / 600 600 / 600 480 / 480 Balance 600 / 600 600 / 600 480 / 480 General: Alert, Oriented x3, Cooperative HEENT: Atraumatic, PERRLA, EOMI, Normocephalic Neck: Supple, No JVD, Negative Carotid Bruits Lungs: Clear to auscultation, Normal air movement Cardiovascular: Regular rate, No murmurs Abdomen: Bowel Sounds Present, Soft, Non Tender Extremities: No edema, Capillary Refill Less than 3 Seconds Skin: No rashes, No breakdown Musculoskeletal: No Tenderness to Palpation of Joints or Extremities Neurological: Cranial nerves II-XII grossly intact Psych/Mental Status: Normal Affect, Appropriate Laboratory Results 07/31/19 21:33: POC Glucose 172 H 08/01/19 05:10: Sodium 141, Potassium 3.5, Chloride 102, Carbon Dioxide 35.0 H, Anion Gap 4 L, BUN 20 H, Creatinine 0.95, Estim Creat Clear Calc 36.23, Est GFR (MDRD) Af Amer 73, Est GFR (MDRD) Non-Af 60, BUN/Creatinine Ratio 21.0 H, Glucose 125 H, Calcium 8.2 L 08/01/19 06:27: POC Glucose 129 H Current Medications Acetaminophen (Tylenol) 650 mg PO TID [facility] Last Admin: 08/01/19 05:31 Dose: 650 mg Documented by: Al Hydroxide/Mg Hydroxide (Mylanta Ii) 15 ml PO Q4H PRN PRN PRN Reason: HEARTBURN Last Admin: 07/23/19 14:58 Dose: 15 ml Documented by: Albuterol Sulfate (Ventolin Aerosols) 2.5 mg INHALATION Q2H PRN PRN PRN Reason: WHEEZING Last Admin: 07/28/19 16:20 Dose: 2.5 mg Documented by: Albuterol/Ipratropium (Duoneb) 3 ml INHALATION Q6HWA.RT [facility] Last Admin: 08/01/19 13:55 Dose: 3 ml Documented by: Alendronate Sodium (Fosamax) 70 mg PO Corral@1000 [facility] Last Admin: 07/27/19 09:16 Dose: 70 mg Documented by: Apixaban (Eliquis) 2.5 mg PO BID [facility] Last Admin: 08/01/19 04:04 Dose: 2.5 mg Documented by: Atorvastatin Calcium (Lipitor) 20 mg PO QHS [facility] Last Admin: 07/31/19 21:31 Dose: 20 mg Documented by: Benzonatate (Tessalon Perle) 200 mg PO TID PRN PRN PRN Reason: COUGH Last Admin: 07/19/19 23:32 Dose: 200 mg Documented by: Bisacodyl (Dulcolax) 10 mg PO DAILY PRN PRN Reason: Constipation Last Admin: 07/20/19 08:56 Dose: 10 mg Documented by: Budesonide (Pulmicort Aerosol) 0.5 mg INHALATION Q12H.RT [facility] Last Admin: 08/01/19 06:54 Dose: 0.5 mg Documented by: Calamine/Phenol (Calmoseptine Ointment) 1 applic TOPICAL 0600,2200 [facility]; Protocol Last Admin: 08/01/19 04:03 Dose: 1 applicatio Documented by: Cholecalciferol (Vitamin D (25mcg)) 1,000 unit PO DAILY [facility] Last Admin: 08/01/19 04:05 Dose: 1,000 unit Documented by: Furosemide (Lasix) 40 mg PO BID@0600,1300 [facility] Last Admin: 08/01/19 04:05 Dose: 40 mg Documented by: Glimepiride (Amaryl) 2 mg PO DAILY@0800 [facility] Last Admin: 08/01/19 08:30 Dose: 2 mg Documented by: Glucagon () 1 mg IM .X1 PRN PRN Reason: Hypoglycemia Dextrose (Dextrose 10%-Water) 250 mls @ 999 mls/hr IV .Q16M PRN; Protocol PRN Reason: HYPOGLYCEMIA Lidocaine (Lidoderm Patch) 1 patch TOPICAL DAILY [facility]; Protocol Last Admin: 08/01/19 04:08 Dose: 1 patch Documented by: Melatonin (Melatonin) 3 mg PO QHS [facility] Last Admin: 07/31/19 21:31 Dose: 3 mg Documented by: Menthol (Bengay Vanishing Scent) 1 applic TOPICAL 4X/DAY PRN PRN PRN Reason: Pain or Fever Last Admin: 07/31/19 11:31 Dose: 1 applic Documented by: Metoprolol Tartrate (Lopressor (Beta Lucina)) 25 mg PO BID [facility] Last Admin: 08/01/19 04:05 Dose: 25 mg Documented by: Mirtazapine (Remeron) 7.5 mg PO QHS [facility] Last Admin: 07/31/19 21:31 Dose: 7.5 mg Documented by: Multi-Ingredient Cream (Eucerin) 1 applic TOPICAL 0 [facility]; Protocol Last Admin: 07/31/19 21:40 Dose: 1 applicatio Documented by: Nystatin (Mycostatin Powder) 1 applic TOPICAL 0600,2200 [facility]; Protocol Last Admin: 08/01/19 04:06 Dose: 1 applicatio Documented by: Pantoprazole Sodium (Protonix) 40 mg PO DAILY [facility] Last Admin: 08/01/19 04:04 Dose: 40 mg Documented by: Polyethylene Glycol (Miralax) 17 gm PO DAILY [facility] Last Admin: 08/01/19 04:06 Dose: Not Given Documented by: Polysaccharide Iron Complex (Ferrex 150) 150 mg PO DAILYCM [facility] Last Admin: 08/01/19 08:30 Dose: 150 mg Documented by: Potassium Chloride (K-Dur) 20 meq PO DAILYCM [facility] Last Admin: 08/01/19 08:30 Dose: 20 meq Documented by: Senna/Docusate Sodium (Senokot-S, Rachel-Colace) 1 tablet PO BID [facility] Last Admin: 08/01/19 04:04 Dose: 1 tablet Documented by: Sodium Chloride () 10 - 40 ml IV UD PRN PRN Reason: SALINE FLUSH Last Admin: 07/23/19 08:40 Dose: 20 ml Documented by: Sodium Chloride () 10 - 40 ml IV UD PRN PRN Reason: SALINE FLUSH Sodium Chloride () 10 - 40 ml IV UD PRN PRN Reason: SALINE FLUSH Throat Lozenges (Cepacol Sore Throat Lozenge) 1 lozenge MUCOUS MEM Q2H PRN PRN PRN Reason: SORE THROAT Last Admin: 07/23/19 11:44 Dose: 1 lozenge Documented by: Trazodone HCl (Desyrel) 50 mg PO QHS [facility] Last Admin: 07/31/19 21:31 Dose: 50 mg Documented by: Assessment/Plan All Active Problems (Last Reviewed 07/15/19 @ 13:20 by Alessandra Valdivia) Cardiogenic shock (Acute) Bradycardia (Acute) Renal failure (ARF), acute on chronic (Acute) Acute hyperkalemia (Acute) Debility (Acute) Unresponsiveness (Resolved) History of respiratory failure with hypo (Resolved) Anemia (Ruled-out) 78 year old female with below past medical history hospitalized for hyperkalemia, acute kidney injury, complicated by respiratory failure requiring intubation, admitted to TCU with debility, here for rehabilitation, strengthening, prior to discharge home alone. Resident would like to attend a wedding in [place] August 10, 2019. * Left knee pain status post total knee arthroplasty - Corticosteroid knee injection has documented above, no immediate complications.
[2019-08-01] MEDS: Atorvastatin Calcium 20 MG Tablet PO (21:05)
[2019-08-01] MEDS: traZODone 50 MG Tablet PO (21:05)
[2019-08-01] MEDS: Mirtazapine 15 MG Tablet 7.5 MG PO (21:05)
[2019-08-01] MEDS: MELATONIN 3 MG TABLET PO (21:05)
[2019-08-01 21:36] LABS: Bedside Glucose 203 mg/dL (70-110)
[2019-08-02 05:15] VITALS: BP 131/74; PULSE 93
[2019-08-02] MEDS: Pantoprazole Sodium 40 MG Tablet PO (05:15)
[2019-08-02] MEDS: Metoprolol Tartrate 25 MG Tablet PO ×2 (05:15→17:15)
[2019-08-02] MEDS: Furosemide 40 MG Tablet PO ×2 (05:15→14:01)
[2019-08-02] MEDS: APIXABAN 2.5 MG TABLET PO ×2 (05:16→17:15)
[2019-08-02] MEDS: Lidocaine 5% Patch 1 PATCH TOPICAL (05:16)
[2019-08-02] MEDS: Acetaminophen 325 MG Tablet 650 MG PO ×3 (05:16→20:30)
[2019-08-02] MEDS: Menthol/Lanolin/Calamine/Znox 113 GM Tube 1 APPLIC TOPICAL ×2 (05:25→20:37)
[2019-08-02] MEDS: Nystatin Powder 15gm Bottle 1 APPLIC TOPICAL ×2 (05:25→20:37)
[2019-08-02 06:26] LABS: Bedside Glucose 153 mg/dL (70-110)
[2019-08-02 07:50] VITALS: PULSE 75; RESP 22; O2SAT 88
[2019-08-02] MEDS: Budesonide Respules 0.5 MG/2 ML AMPUL.NEB. INHALATION ×2 (07:50→19:50)
[2019-08-02] MEDS: Ipratropium/Albuterol Sulfate 3 ML AMPUL.NEB INHALATION ×2 (07:50→19:50)
[2019-08-02] MEDS: Glimepiride 2 MG Tablet PO (08:37)
[2019-08-02] MEDS: Iron Polysaccharide Complex 150 MG CAPSULE PO (08:38)
[2019-08-02 13:45] VITALS: PULSE 84; RESP 16; O2SAT 90
[2019-08-02 13:46] VITALS: BP 136/59; PULSE 81; RESP 20; TEMP 36.4; O2SAT 90
[2019-08-02 17:15] VITALS: PULSE 81
[2019-08-02] MEDS: Senna/Docusate Sodium 1 Tablet PO (17:15)
[2019-08-02 19:50] VITALS: PULSE 80; RESP 16; O2SAT 92
[2019-08-02] MEDS: Mirtazapine 15 MG Tablet 7.5 MG PO (20:30)
[2019-08-02] MEDS: MELATONIN 3 MG TABLET PO (20:31)
[2019-08-02] MEDS: Atorvastatin Calcium 20 MG Tablet PO (20:31)
[2019-08-02] MEDS: traZODone 50 MG Tablet PO (20:31)
[2019-08-02 21:31] LABS: Bedside Glucose 112 mg/dL (70-110)
[2019-08-03] VITALS (7 sets, daily range): BP systolic 134–149; BP diastolic 73–83; PULSE 69–86; RESP 16–18; TEMP 37.4; O2SAT 95–100
[2019-08-03 06:16] LABS: Bedside Glucose 100 mg/dL (70-110)
[2019-08-03] MEDS: APIXABAN 2.5 MG TABLET PO ×2 (06:22→17:10)
[2019-08-03] MEDS: Lidocaine 5% Patch 1 PATCH TOPICAL (06:22)
[2019-08-03] MEDS: Acetaminophen 325 MG Tablet 650 MG PO ×3 (06:22→20:36)
[2019-08-03] MEDS: Senna/Docusate Sodium 1 Tablet PO ×2 (06:22→17:10)
[2019-08-03] MEDS: Furosemide 40 MG Tablet PO ×2 (06:22→13:34)
[2019-08-03] MEDS: Polyethylene Glycol 3350 17 GM PACKET PO (06:22)
[2019-08-03] MEDS: Pantoprazole Sodium 40 MG Tablet PO (06:22)
[2019-08-03] MEDS: Metoprolol Tartrate 25 MG Tablet PO ×2 (06:22→17:10)
[2019-08-03] MEDS: Nystatin Powder 15gm Bottle 1 APPLIC TOPICAL ×2 (06:23→20:36)
[2019-08-03] MEDS: Menthol/Lanolin/Calamine/Znox 113 GM Tube 1 APPLIC TOPICAL ×2 (06:23→20:36)
[2019-08-03] MEDS: Ipratropium/Albuterol Sulfate 3 ML AMPUL.NEB INHALATION ×3 (07:05→19:35)
[2019-08-03] MEDS: Budesonide Respules 0.5 MG/2 ML AMPUL.NEB. INHALATION ×2 (07:05→19:35)
[2019-08-03] MEDS: Iron Polysaccharide Complex 150 MG CAPSULE PO (08:18)
[2019-08-03] MEDS: Glimepiride 2 MG Tablet PO (08:18)
[2019-08-03] MEDS: Alendronate Sodium 70 MG Tablet PO (10:30)
[2019-08-03] MEDS: MELATONIN 3 MG TABLET PO (20:35)
[2019-08-03] MEDS: Atorvastatin Calcium 20 MG Tablet PO (20:35)
[2019-08-03] MEDS: Mirtazapine 15 MG Tablet 7.5 MG PO (20:36)
[2019-08-03] MEDS: traZODone 50 MG Tablet PO (20:36)
[2019-08-03 21:25] LABS: Bedside Glucose 143 mg/dL (70-110)
[2019-08-04] VITALS (7 sets, daily range): BP systolic 125–140; BP diastolic 50–76; PULSE 76–88; RESP 14–20; TEMP 36.2–37.2; O2SAT 90–95
[2019-08-04] MEDS: Pantoprazole Sodium 40 MG Tablet PO (04:38)
[2019-08-04] MEDS: Polyethylene Glycol 3350 17 GM PACKET PO (04:38)
[2019-08-04] MEDS: Furosemide 40 MG Tablet PO ×2 (04:38→13:37)
[2019-08-04] MEDS: Lidocaine 5% Patch 1 PATCH TOPICAL (04:38)
[2019-08-04] MEDS: APIXABAN 2.5 MG TABLET PO ×2 (04:39→16:59)
[2019-08-04] MEDS: Nystatin Powder 15gm Bottle 1 APPLIC TOPICAL ×2 (04:39→20:22)
[2019-08-04] MEDS: Acetaminophen 325 MG Tablet 650 MG PO ×3 (04:39→20:21)
[2019-08-04] MEDS: Menthol/Lanolin/Calamine/Znox 113 GM Tube 1 APPLIC TOPICAL ×2 (04:39→20:33)
[2019-08-04] MEDS: Senna/Docusate Sodium 1 Tablet PO ×2 (04:39→16:59)
[2019-08-04] MEDS: Metoprolol Tartrate 25 MG Tablet PO ×2 (04:40→16:59)
--- NOTE | 2019-08-04 06:00 | RAD_ITS ---
STUDY: X-RAY CHEST REASON FOR EXAM: Female, 78 years old. RT PLEURAL EFFUSION TECHNIQUE: Frontal and lateral views of the chest. 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 Stable right pleural fluid. Normal size heart. Normal mediastinum and analisa. Normal visualized pulmonary arteries. Normal visualized aortic arch and descending thoracic aorta. Normal visualized thoracic spine. There is degenerative osteoarthritis of the bilateral shoulders. There is no demonstrated abnormality of the visualized soft tissue structures of the upper abdomen. 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 Stable right pleural fluid. Electronically Signed: Mychal Hall MD at 8:49 EDT Tel , Service support ,
[2019-08-04 06:35] LABS: Bedside Glucose 145 mg/dL (70-110)
[2019-08-04 06:41] LABS: Anion Gap 3 (5-15); BUN 26 mg/dL (7-18); Calcium,Total 7.9 mg/dL (8.5-10.1); Chloride 105 mmol/L (98-107); Creatinine, Serum 1.04 mg/dL (0.55-1.02); EST Glomerular Filtration Rate 54 mL/min (>60); Est Glom Filt Rate - Afr Amer 66 mL/min (>60); Glucose 147 mg/dL (74-106); Potassium 3.7 mmol/L (3.5-5.1); Sodium Level 142 mmol/L (136-145)
[2019-08-04] MEDS: Budesonide Respules 0.5 MG/2 ML AMPUL.NEB. INHALATION (06:53)
[2019-08-04] MEDS: Ipratropium/Albuterol Sulfate 3 ML AMPUL.NEB INHALATION ×2 (06:53→12:29)
[2019-08-04] MEDS: Iron Polysaccharide Complex 150 MG CAPSULE PO (08:47)
[2019-08-04] MEDS: Glimepiride 2 MG Tablet PO (08:47)
--- NOTE | 2019-08-04 13:56 | CASEMGMT ---
Social Work Spoke with patient's dtr about DME. Pt requires a 24 in w/c as her hip width is measured at 23 in. Dtr inquired about gel overlay mattress for hospital bed. Pt does not qualify for insurance to cover mattress - dtr informed of private pay cost and is agreeable to purchase. Notified [employer] of above. DASHA CardonaW
[2019-08-04] MEDS: levoFLOXacin 250 MG Tablet PO (16:05)
[2019-08-04] MEDS: Albuterol 2.5 MG/3 ML VIAL.NEB. INHALATION (16:12)
--- NOTE | 2019-08-04 17:34 | NURSING ---
Dr Nieves reviewed chest xray, new order for levaquin until 08/11
[2019-08-04] MEDS: Mirtazapine 15 MG Tablet 7.5 MG PO (20:21)
[2019-08-04] MEDS: MELATONIN 3 MG TABLET PO (20:21)
[2019-08-04] MEDS: traZODone 50 MG Tablet PO (20:21)
[2019-08-04] MEDS: Atorvastatin Calcium 20 MG Tablet PO (20:21)
[2019-08-04 22:26] LABS: Bedside Glucose 155 mg/dL (70-110)
[2019-08-05] VITALS (7 sets, daily range): BP systolic 117–127; BP diastolic 51–56; PULSE 84–91; RESP 18–20; TEMP 36.3; O2SAT 91–98
[2019-08-05] MEDS: Metoprolol Tartrate 25 MG Tablet PO ×2 (05:54→16:54)
[2019-08-05] MEDS: Furosemide 40 MG Tablet PO ×2 (05:55→13:26)
[2019-08-05] MEDS: Pantoprazole Sodium 40 MG Tablet PO ×2 (05:55)
[2019-08-05] MEDS: Polyethylene Glycol 3350 17 GM PACKET PO (05:55)
[2019-08-05] MEDS: APIXABAN 2.5 MG TABLET PO ×2 (05:56→16:54)
[2019-08-05] MEDS: levoFLOXacin 250 MG Tablet PO (05:56)
[2019-08-05] MEDS: Menthol/Lanolin/Calamine/Znox 113 GM Tube 1 APPLIC TOPICAL ×2 (05:57→19:45)
[2019-08-05] MEDS: Lidocaine 5% Patch 1 PATCH TOPICAL (05:57)
[2019-08-05] MEDS: Nystatin Powder 15gm Bottle 1 APPLIC TOPICAL ×2 (05:59→19:45)
[2019-08-05] MEDS: Acetaminophen 325 MG Tablet 650 MG PO ×3 (06:00→19:44)
[2019-08-05 06:20] LABS: Bedside Glucose 139 mg/dL (70-110)
[2019-08-05] MEDS: Budesonide Respules 0.5 MG/2 ML AMPUL.NEB. INHALATION (06:59)
[2019-08-05] MEDS: Ipratropium/Albuterol Sulfate 3 ML AMPUL.NEB INHALATION ×3 (06:59→23:15)
[2019-08-05] MEDS: Glimepiride 2 MG Tablet PO (07:59)
[2019-08-05] MEDS: Iron Polysaccharide Complex 150 MG CAPSULE PO (07:59)
[2019-08-05] MEDS: traZODone 50 MG Tablet PO (19:43)
[2019-08-05] MEDS: MELATONIN 3 MG TABLET PO (19:43)
[2019-08-05] MEDS: Mirtazapine 15 MG Tablet 7.5 MG PO (19:44)
[2019-08-05] MEDS: Atorvastatin Calcium 20 MG Tablet PO (19:44)
[2019-08-05 21:35] LABS: Bedside Glucose 167 mg/dL (70-110)
[2019-08-06] VITALS (8 sets, daily range): BP systolic 121; BP diastolic 60; PULSE 75–88; RESP 18; TEMP 36.6–36.9; O2SAT 95–97
[2019-08-06] MEDS: Acetaminophen 325 MG Tablet 650 MG PO ×3 (04:28→20:14)
[2019-08-06] MEDS: Furosemide 40 MG Tablet PO ×2 (04:28→12:51)
[2019-08-06] MEDS: Polyethylene Glycol 3350 17 GM PACKET PO (04:28)
[2019-08-06] MEDS: Metoprolol Tartrate 25 MG Tablet PO ×2 (04:29→17:34)
[2019-08-06] MEDS: APIXABAN 2.5 MG TABLET PO ×2 (04:33→17:34)
[2019-08-06] MEDS: levoFLOXacin 250 MG Tablet PO (04:33)
[2019-08-06] MEDS: Menthol/Lanolin/Calamine/Znox 113 GM Tube 1 APPLIC TOPICAL ×2 (04:34→20:13)
[2019-08-06] MEDS: Lidocaine 5% Patch 1 PATCH TOPICAL (04:34)
[2019-08-06] MEDS: Nystatin Powder 15gm Bottle 1 APPLIC TOPICAL ×2 (04:34→20:14)
[2019-08-06 06:00] LABS: Absolute Lymphocyte Count 0.97 X10^3/uL (0.83-4.51); Absolute Neutrophil Count 4.2 X10^3/uL (2.0-7.7); Basophil# 0.04 X10^3/uL; Basophil% 0.7 % (0-1); Eosinophil# 0.21 X10^3/uL; Eosinophils% 3.5 % (0-5); Hematocrit 29.2 % (37-47); Hemoglobin 8.5 g/dL (12.0-15.0); Lymphocyte # 0.97 X10^3/ul (4.0); Lymphocyte % 16.1 % (19-41); Mean Corp Hgb Conc 29.1 g/dL (32-36); Mean Corpuscular Hgb 29.8 pg (27.0-32.0); Mean Corpuscular Volume 102.5 fL (81-99); Mean Platelet Vol. 10.3 fl (6.2-12.0); Monocyte# 0.62 X10^3/uL; Monocyte% 10.3 % (0-10); NRBC Flagged by Analyzer 0 % (0-5); Neutrophil # 4.17 X10^3/uL (2.7-7.7); Neutrophil % 69.1 % (47-70); POSITIVE MORPHOLOGY YES; Platelet Count 263 K/mm3 (150-450); RBC Distribution Width CV 17.4 % (11.6-14.6); RBC Distribution Width SD 65.4 fl (35.1-43.9); Red Blood Count 2.85 M/mm3 (4.2-5.4)
[2019-08-06 06:03] LABS: Differential Indicated SCAN CRITERIA MET
[2019-08-06 06:15] LABS: Bedside Glucose 123 mg/dL (70-110)
[2019-08-06 06:43] LABS: Anisocytosis RARE; Differential Comment SCANNED; Microcytosis RARE; Polychromasia RARE
[2019-08-06] MEDS: Ipratropium/Albuterol Sulfate 3 ML AMPUL.NEB INHALATION ×3 (07:32→19:00)
[2019-08-06] MEDS: Budesonide Respules 0.5 MG/2 ML AMPUL.NEB. INHALATION ×2 (07:32→19:00)
[2019-08-06] MEDS: Glimepiride 2 MG Tablet PO (08:01)
[2019-08-06] MEDS: Iron Polysaccharide Complex 150 MG CAPSULE PO (08:01)
--- NOTE | 2019-08-06 11:20 | MDS.RN ---
Resident's dtg, Mayuri, notified of current visitor precautions regarding COVID-19.
--- NOTE | 2019-08-06 12:08 | NURSING ---
Patients daughter was diagnosed with Influenza A and is concerned about taking the patient home because she is her sole resident caregiver. Daughter requesting us to find out what we can do to keep her mom until she is fever free for 24 hours. Moira HALEY notified. Charge nurse notified.
--- NOTE | 2019-08-06 14:05 | CASEMGMT ---
Social Work Spoke with pts daughter and reeducated at length to Medicare coverage and requirements and coverage for secondary insurance. Explained dtr can pay privately for pt to remain until dtr can take her own, but pt to plan to DC 08/06 unless pt has a change in condition and qualifies for skilled services. Moria Mcdonald, RURAL SOCIOLOGIST ENTRY LEVEL CHEMIST
[2019-08-06] MEDS: Mirtazapine 15 MG Tablet 7.5 MG PO (20:15)
[2019-08-06] MEDS: MELATONIN 3 MG TABLET PO (20:15)
[2019-08-06] MEDS: Atorvastatin Calcium 20 MG Tablet PO (20:15)
[2019-08-06] MEDS: traZODone 50 MG Tablet PO (20:16)
[2019-08-06 20:51] LABS: Bedside Glucose 166 mg/dL (70-110)
[2019-08-06] MEDS: Benzonatate 100 MG Capsule 200 MG PO (22:39)
[2019-08-06] MEDS: Albuterol 2.5 MG/3 ML VIAL.NEB. INHALATION (22:50)
[2019-08-07] VITALS (8 sets, daily range): BP systolic 136–150; BP diastolic 49–75; PULSE 85–99; RESP 18–24; TEMP 36.9–37.2; O2SAT 83–98
[2019-08-07] MEDS: Benzonatate 100 MG Capsule 200 MG PO (05:17)
[2019-08-07] MEDS: APIXABAN 2.5 MG TABLET PO (05:17)
[2019-08-07] MEDS: Acetaminophen 325 MG Tablet 650 MG PO ×2 (05:17→13:28)
[2019-08-07] MEDS: levoFLOXacin 250 MG Tablet PO (05:18)
[2019-08-07] MEDS: Pantoprazole Sodium 40 MG Tablet PO (05:18)
[2019-08-07] MEDS: Furosemide 40 MG Tablet PO ×2 (05:18→12:03)
[2019-08-07] MEDS: Lidocaine 5% Patch 1 PATCH TOPICAL (05:19)
[2019-08-07] MEDS: Metoprolol Tartrate 25 MG Tablet PO (05:19)
[2019-08-07] MEDS: Menthol/Lanolin/Calamine/Znox 113 GM Tube 1 APPLIC TOPICAL (05:21)
[2019-08-07] MEDS: Nystatin Powder 15gm Bottle 1 APPLIC TOPICAL (05:21)
[2019-08-07 06:26] LABS: Bedside Glucose 150 mg/dL (70-110)
[2019-08-07] MEDS: Ipratropium/Albuterol Sulfate 3 ML AMPUL.NEB INHALATION (06:50)
[2019-08-07] MEDS: Budesonide Respules 0.5 MG/2 ML AMPUL.NEB. INHALATION (07:10)
[2019-08-07] MEDS: Glimepiride 2 MG Tablet PO (08:19)
[2019-08-07] MEDS: Iron Polysaccharide Complex 150 MG CAPSULE PO (08:19)
[2019-08-07] MEDS: Oseltamivir Phosphate 30 MG Capsule PO (10:41)
--- NOTE | 2019-08-07 10:41 | CASEMGMT ---
Social Work Spoke with patient's granddaughter and educated her to the Medicare coverage, qualifications for skilled services, secondary and tertiary insurances. Pt is requesting and ready to DC home on this date as well. Explained physician cleared pt for discharge and will start pt on preventative dose of Tamiflu. Explained to gddtr private pay options or another SNF. She stated she does not want to move the pt. Reexplained pt can remain here until private pay and to pay 21 days up front and will reimburse for the days pt does not use. Gddtr indicated that is not feasible and pt will DC on this date. DASHA CardonaW
--- NOTE | 2019-08-07 10:45 | NURSING ---
Addendum entered by Blanche Kilgore 08/07/19 10:51: When oxygen replaced at 2L residents sats came up to 94%. Lung sounds diminished. Resident temp 97.9 oral. Will update Arley SANTORO. Addendum entered by Blanche Kilgore 08/07/19 10:50: The longer resident is off oxygen SPO2 drops in the 80's. Resident states she is short of breath and c/o dry cough. Original Note: Resident was on oxygen and taken off. SPO2 between 90-92% on room air.
--- NOTE | 2019-08-07 11:19 | NURSING ---
Addendum entered by Blanche Kilgore 08/07/19 11:44: Solu-medrol given in right hip. Resident tolerated well. Will monitor. Original Note: Dr Nieves notified of resident's low spo2. Orders to give SOlu-Medrol 125 mg. Also give PRN aerosol now and if resident still not feeling well, she can see him in his office tomorrow. Resident with no IV access. Pharmacy states its ok to give SoluMedrol IM. Orders entered and resident updated. RT called for Aersol treatment. Will continue to monitor resident.
[2019-08-07] MEDS: Albuterol 2.5 MG/3 ML VIAL.NEB. INHALATION (11:30)
[2019-08-07] MEDS: MethylPREDNISolone 125 MG/2 ML Vial IM (11:37)
--- NOTE | 2019-08-07 14:23 | CASEMGMT ---
Social Work Nursing update on O2 sats and testing. Faxed O2 orders to [facility] for PRN O2. Physician stating pt will DC on this date and if not feeling well tomorrow, to f/u in the office. Moira Mcdonald, CHEMICAL LABORATORY SCIENTIST MACHINE SET UP OPERATOR
== END 2019-08-07 16:25 | disposition home health service (06) | DRG 292 ==
PROVIDERS: Internal Medicine Nephrology; Admitting Provider Family Medicine Geriatric Medicine; PCP Family Medicine; Referring Provider Family Medicine Geriatric Medicine; Visit Provider Family Medicine Geriatric Medicine
DX: R57.0 Cardiogenic shock (principal); I48.20 Chronic atrial fibrillation, unspecified; N39.0 Urinary tract infection, site not specified; N17.9 Acute kidney failure, unspecified; J90 Pleural effusion, not elsewhere classified; B95.62 Methicillin resistant Staphylococcus aureus infection as the cause of diseases classified elsewhere; E78.5 Hyperlipidemia, unspecified; E11.22 Type 2 diabetes mellitus with diabetic chronic kidney disease; J44.9 Chronic obstructive pulmonary disease, unspecified; K21.9 Gastro-esophageal reflux disease without esophagitis; M81.0 Age-related osteoporosis without current pathological fracture; I12.9 Hypertensive chronic kidney disease with stage 1 through stage 4 chronic kidney disease, or unspecified chronic kidney disease; F41.9 Anxiety disorder, unspecified; I48.0 Paroxysmal atrial fibrillation; Z87.891 Personal history of nicotine dependence; B96.20 Unspecified Escherichia coli [E. coli] as the cause of diseases classified elsewhere; B96.4 Proteus (mirabilis) (morganii) as the cause of diseases classified elsewhere; N18.3 Chronic kidney disease, stage 3 (moderate); R01.1 Cardiac murmur, unspecified; M25.562 Pain in left knee
CPT/HCPCS: 32555; 36415; 36430; 71046; 73560; 74018; 80048; 80061; 80069; 81001; 82570; 82962; 83036; 83735; 84300; 84484; 85014; 85018; 85025; 85027; 85610; 86850; 86900; 86901; 86920; 86922; 87077; 87086; 87088; 87186; 87506; 87633; 92507; 92526; 92610; 93306; 94060; 94640; 94726; 94729; 97110; 97116; 97162; 97165; 97530; 97535; 97802; J7030; J7040; P9016; A4216; J1940

== ENCOUNTER → 2019-07-18 10:10 | Outpatient (REF) | payer SELFPAY ==
[2019-10-28 11:07] VITALS: BMI 47.8
== END ==
LOC: MEDOUTP 10:10
PROVIDERS: PCP Family Medicine Geriatric Medicine; Referring Provider Family Medicine Geriatric Medicine; Visit Provider Family Medicine Geriatric Medicine
DX: D50.9 Iron deficiency anemia, unspecified (principal)
CPT/HCPCS: 36430; 86850; 86900; 86901; 86920; 86922; J7040; P9016; A4216; J1940

== ENCOUNTER → 2019-07-18 10:10 | Outpatient (CLI) | payer MEDICARE, OTHER, BC, SELFPAY ==
[2019-07-15 13:19] VITALS: BMI 45.5
[2019-07-18 10:33] VITALS: BP 128/35; PULSE 65; RESP 18; TEMP 36.7; O2SAT 92; BMI 39.6
[2019-07-18 11:30] VITALS: BP 142/44; PULSE 60; RESP 16; TEMP 36.7
[2019-07-18 11:58] VITALS: BP 111/49; PULSE 72; RESP 16; TEMP 36.2
[2019-07-18 13:45] VITALS: BP 128/52; PULSE 64; RESP 14; TEMP 36.1
[2019-07-18] MEDS: Furosemide 20 MG/2 ML VIAL IV (13:56)
--- NOTE | 2019-07-18 14:04 | NURSING ---
NURSE TO NURSE REPORT CALLED TO TCU, THEY ARE COMING TO TAKE PATIENT BACK TO THEIR FLOOR
== END ==
LOC: MEDOUTP 10:13
PROVIDERS: PCP Family Medicine Geriatric Medicine; Referring Provider Family Medicine Geriatric Medicine; Visit Provider Family Medicine Geriatric Medicine
DX: D50.9 Iron deficiency anemia, unspecified (principal)
CPT/HCPCS: 36430; 86850; 86900; 86901; 86920; 86922; J7040; P9016; A4216; J1940

== ENCOUNTER → 2019-07-24 14:02 | Outpatient (CLI) | payer MEDICARE, OTHER, BC, SELFPAY ==
[2019-07-15 13:19] VITALS: BMI 45.5
[2019-07-18 10:33] VITALS: BMI 39.6
--- NOTE | 2019-07-24 14:04 | ECHOD_ITS ---
Reason For Study: ATRIAL FIB-FLUTTER Procedure This was a 2D Doppler, Color Flow transthoracic echocardiogram. Definity deferred due to increased PAP. Exam performed in department. Left Ventricle Mild concentric left ventricular hypertrophy. The estimated ejection fraction is 65 %. Stage 2 diastolic dysfunction. No regional wall motion abnormalities noted. Right Ventricle Severely dilated right ventricle. Moderate segmental dysfunction of right ventricle. Atria Normal left atrium. Normal right atrium. Normal atrial septum. Mitral Valve Mild diffuse mitral valve thickening. Moderate mitral annular calcification extending into the posterior leaflet. Trivial mitral valve insufficiency. Tricuspid Valve Normal tricuspid valve. Moderately severe (3+) tricuspid valve insufficiency. Right ventricular systolic pressure estimated to be 60 mmHg. Severe pulmonary hypertension. Aortic Valve Trisinus/trileaflet aortic valve. Mild diffuse aortic valve thickening. Pulmonic Valve Normal pulmonic valve. Great Vessels Normal aortic root. Normal arch. The inferior vena cava is dilated. No collapse of the inferior vena cava. Pericardium/Pleural No pericardial effusion. Small left pleural effusion. MMode/2D Measurements & Calculations LVIDd: 2.9 cm IVSd: 1.2 cm Ao root diam: 2.5 cm LVIDs: 2.0 cm LVPWd: 1.3 cm RVDd: 4.0 cm FS: 31.5 % LAV(MOD-bp): 47.4 ml LVAd ap4: 18.6 cm2 SV(MOD-sp4): 31.0 ml LAV(MOD-bp) Indexed: 24.1 ml/m2 EDV(MOD-sp4): 45.3 ml LAV(MOD-sp2): 44.6 ml EDV(sp4-el): 47.0 ml LAV(MOD-sp4): 46.6 ml LVAs ap4: 9.2 cm2 ESV(MOD-sp4): 14.3 ml ESV(sp4-el): 14.0 ml EF(MOD-sp4): 68.4 % EF(sp4-el): 70.2 % SV(sp4-el): 33.0 ml LA A4 area: 18.0 cm2 LA dimension(2D): 3.7 cm RA A4 area: 18.1 cm2 Time Measurements MV dec time: 0.20 sec Doppler Measurements & Calculations MV E max blair: 150.0 cm/sec Lat Peak E' Blair: 10.3 cm/sec Med Peak E' Blair: 8.0 cm/sec MV A max blair: 83.1 cm/sec E/E' lat: 14.5 E/E' med: 18.8 MV E/A: 1.8 Ao V2 max: 188.9 cm/sec LV V1 max: 92.1 cm/sec PA V2 max: 88.4 cm/sec Ao max P.3 mmHg LV V1 max P.4 mmHg TR max blair: 371.8 cm/sec TR max P.3 mmHg Interpretation Summary Mild concentric left ventricular hypertrophy. The estimated ejection fraction is 65 %. Stage 2 diastolic dysfunction. Severely dilated right ventricle. Moderate segmental dysfunction of right ventricle. Moderately severe (3+) tricuspid valve insufficiency. Right ventricular systolic pressure estimated to be 60 mmHg. Small left pleural effusion. There is no comparison study available. Ordering Physician: Brad Vickers Referring Physician: KIERRA MARCOS Performed By: Annemarie Guillen RDCS
== END ==
LOC: CVS 14:04
PROVIDERS: PCP Family Medicine Geriatric Medicine; Referring Provider Internal Medicine Cardiovascular Disease; Visit Provider Internal Medicine Cardiovascular Disease
DX: R57.0 Cardiogenic shock (principal)
CPT/HCPCS: 93306

== ENCOUNTER → 2019-07-24 14:02 | Outpatient (REF) | payer SELFPAY ==
[2019-10-28 11:09] VITALS: BMI 47.8
== END ==
LOC: CVS 14:02
PROVIDERS: PCP Family Medicine Geriatric Medicine; Referring Provider Internal Medicine Cardiovascular Disease; Visit Provider Internal Medicine Cardiovascular Disease
DX: R57.0 Cardiogenic shock (principal)
CPT/HCPCS: 93306

== ENCOUNTER → 2019-07-31 09:48 | Outpatient (CLI) | payer MEDICARE, OTHER, BC, SELFPAY ==
[2019-07-10 13:14] VITALS: BMI 47.8
[2019-07-18 10:33] VITALS: BMI 39.6
== END ==
LOC: PSN 09:49
PROVIDERS: PCP Family Medicine Geriatric Medicine; Referring Provider Internal Medicine Critical Care Medicine; Visit Provider Internal Medicine Critical Care Medicine
DX: J96.01 Acute respiratory failure with hypoxia (principal); J96.02 Acute respiratory failure with hypercapnia
CPT/HCPCS: 94060; 94726; 94729

== ENCOUNTER → 2019-07-31 09:48 | Outpatient (REF) | payer SELFPAY ==
[2019-10-28 11:16] VITALS: BMI 47.8
== END ==
LOC: PSN 09:48
PROVIDERS: PCP Family Medicine Geriatric Medicine; Referring Provider Internal Medicine Critical Care Medicine; Visit Provider Internal Medicine Critical Care Medicine
DX: J96.01 Acute respiratory failure with hypoxia (principal); J96.02 Acute respiratory failure with hypercapnia
CPT/HCPCS: 94060; 94726; 94729

== ENCOUNTER 2019-08-10 17:48 | Inpatient (IN) | payer MEDICARE, OTHER, BC, SELFPAY ==
[2019-07-18 10:33] VITALS: BMI 39.6
[2019-08-10] VITALS (14 sets, daily range): BP systolic 122–202; BP diastolic 25–164; PULSE 71–90; RESP 12–35; TEMP 35.7–36.3; O2SAT 92–100; BMI 41.7; BMI 43.4
[2019-08-10] MEDS: Dextrose 50%-Water 25 GM/50 ML DISP.SYRIN IV ×2 (18:20→21:18)
--- NOTE | 2019-08-10 18:22 | EKG12_ITS ---
Test Reason : SOB Blood Pressure : / mmHG Vent. Rate : 075 BPM Atrial Rate : 468 BPM P-R Int : 000 ms QRS Dur : 082 ms QT Int : 328 ms P-R-T Axes : 000 058 009 degrees QTc Int : 366 ms Accelerated Junctional rhythm Low voltage QRS Nonspecific T wave abnormality Abnormal ECG Confirmed by HERMINIA CUI, TRINO ([id number]), commissioning editor BRITTNEY JACQUES ([id number]) on 08/14/2019 9:09:19 AM Referred By: KACY Confirmed By:TRINO HOPE MD
--- NOTE | 2019-08-10 18:31 | RAD_ITS ---
STUDY: X-RAY CHEST REASON FOR EXAM: Female, 78 years old. increased shortness of breath, leg swelling TECHNIQUE: Single AP portable view of the chest. COMPARISON: Prior study of 08/04/2019 FINDINGS: case monitor leads are present. There is right basilar infiltrate and/or atelectasis. There is a small right-sided pleural effusion. Normal size heart. Normal mediastinum and analisa. Normal visualized pulmonary arteries. There are calcified plaques of the aortic arch. Normal visualized thoracic spine. There are degenerative changes of the shoulder joints. There is no demonstrated abnormality of the visualized soft tissue structures of the upper abdomen. RAD/Chest 1 View (Portable) IMPRESSION: Right basilar infiltrate and/or atelectasis. Small right-sided pleural effusion. Findings appear similar to the previous study. Electronically Signed: Gerald Calabrese MD at 19:04 EDT , Service support ,
[2019-08-10 18:49] LABS: Absolute Lymphocyte Count 0.73 X10^3/uL (0.83-4.51); Absolute Neutrophil Count 3.5 X10^3/uL (2.0-7.7); Basophil# 0.02 X10^3/uL; Basophil% 0.4 % (0-1); Eosinophil# 0.12 X10^3/uL; Eosinophils% 2.4 % (0-5); Hematocrit 31.6 % (37-47); Hemoglobin 9.2 g/dL (12.0-15.0); Lymphocyte # 0.73 X10^3/ul (4.0); Lymphocyte % 14.6 % (19-41); Mean Corp Hgb Conc 29.1 g/dL (32-36); Mean Corpuscular Hgb 30.6 pg (27.0-32.0); Mean Platelet Vol. 10.2 fl (6.2-12.0); Monocyte# 0.59 X10^3/uL; Monocyte% 11.8 % (0-10); NRBC Flagged by Analyzer 0 % (0-5); Neutrophil # 3.54 X10^3/uL (2.7-7.7); Neutrophil % 70.6 % (47-70); POSITIVE MORPHOLOGY YES; Platelet Count 242 K/mm3 (150-450); RBC Distribution Width CV 17.2 % (11.6-14.6); RBC Distribution Width SD 66.8 fl (35.1-43.9); Red Blood Count 3.01 M/mm3 (4.2-5.4)
[2019-08-10 18:51] LABS: Bedside Glucose 28 mg/dL (70-110)
[2019-08-10 18:51] LABS: Differential Indicated SCAN CRITERIA MET
[2019-08-10 18:51] LABS: Bedside Glucose 119 mg/dL (70-110)
[2019-08-10 19:14] LABS: AST(SGOT) 25 U/L (15-37); Alanine Aminotransfer ALT/SGPT 19 U/L (13-56); Albumin, Serum 2.5 g/dL (3.2-5.0); Alkaline Phosphatase 131 U/L (45-117); Anion Gap 7 (5-15); BUN 36 mg/dL (7-18); BUN/Creat Ratio 26.1 RATIO (10-20); Bilirubin, Direct 0.24 mg/dL (0.00-0.30); Calcium,Total 8.4 mg/dL (8.5-10.1); Chloride 102 mmol/L (98-107); Creatinine, Serum 1.38 mg/dL (0.55-1.02); EST Glomerular Filtration Rate 39 mL/min (>60); Est Glom Filt Rate - Afr Amer 47 mL/min (>60); Estimated Creatinine Clearance 28.54 ml/min; Globulin 4.7 g/dL (2.2-4.2); Glucose 32 mg/dL (74-106); Potassium 4.3 mmol/L (3.5-5.1); Protein, Total 7.2 g/dL (6.4-8.2); Sodium Level 141 mmol/L (136-145)
[2019-08-10 19:15] LABS: Red Blood Cells-Urine 0 SEEN /hpf (0-5); White Blood Cells 0 SEEN /hpf (0-5)
[2019-08-10 19:16] LABS: Bedside Glucose 84 mg/dL (70-110)
[2019-08-10 19:16] LABS: Bacteria 0 SEEN /hpf (None Seen); Mucous, Urine 0 SEEN /hpf (<or=2+); Squamous Epithelial Cells - UA 0 SEEN /hpf (5-10)
[2019-08-10 19:18] LABS: BNP,B-Type NATRIURETIC PEPTIDE 742.7 pg/mL (0-100)
[2019-08-10 19:28] LABS: Color, Urine Yellow (Yellow); Glucose, Dipstick Normal (Normal); Ketone-Dipstick Negative (Negative); Leukocyte Esterase-Dipstick Negative /ul (Negative); Nitrite-Dipstick Negative (Negative); Occult Blood-Urine Negative /ul (Negative); Protein-Dipstick 15 mg/dl (Negative); Specific Gravity, Urine 1.015 (1.002-1.030); Urine Bilirubin Dipstick Negative (Negative); Urine Clarity Clear (Clear); Urine Urobilinogen Normal (Normal)
[2019-08-10] MEDS: Dextrose 5%/0.9% NaCl 1,000 ML 125 ML IV (19:39)
--- NOTE | 2019-08-10 19:44 | ED.VIS.GEN ---
History of Present Illness Chief Complaint: Shortness of Breath Informant: Patient Onset: Days Context: Gradual Onset Narrative: Patient was discharged from the TCU 3 days ago. She is been in the hospital frequently recently after A. fib RVR, hyperkalemia, renal failure. Family states that a week ago she was doing very well was up walking around. The day prior to her discharge she developed respiratory symptoms. They treated her with Levaquin and Tamiflu at home but did not swab her for flu. Family states they were not able to get aerosols set up until yesterday at home. She has had significant functional decline since returning home and has not been up and ambulatory. She has had increased work of breathing and increased swelling. Family states the past 2 hours she is not really been talking much. - Past Medical History (1) Anemia, unspecified Status: Chronic (2) Anticoagulant long-term use Status: Chronic (3) Anxiety Status: Chronic (4) CKD (chronic kidney disease) Status: Chronic (5) COPD (chronic obstructive pulmonary disease) Status: Chronic (6) DM2 (diabetes mellitus, type 2) Status: Chronic (7) Essential hypertension Status: Chronic (8) GERD (gastroesophageal reflux disease) Status: Chronic (9) Hyperlipidemia Status: Chronic (10) Sick sinus syndrome Status: Chronic Past Medical History - Allergies and Home Meds Allergies/Adverse Reactions: Allergies Penicillins [PCN] Allergy (Verified 08/10/19 18:03) Other shellfish derived Allergy (Verified 08/10/19 18:03) Other Primary Care Physician: Fam Nieves Chi, MD [Primary Care Provider] - Prior records reviewed: Yes Surgical History: noncontributory Lives: With Family Smoking Status: Never smoker - Family History Maternal Family History: Reports: No pertinent history Paternal Family History: Reports: No pertinent history Review of Systems ROS: Unable to Obtain - Patient not answering questions on arrival. General: Denies: Chills, Fever Cardiovascular: Denies: Chest pain Respiratory: Reports: Dyspnea, Cough Gastrointestinal: Reports: - - Decreased p.o. intake. Denies: Vomiting, Diarrhea Physical Exam Vital Signs/Narrative: Vital Signs Temp Pulse Resp BP Pulse Ox 08/10/19 19:14 77 18 137/48 H 98 08/10/19 18:27 81 35 H 164/57 H 92 08/10/19 17:53 97.4 F L 85 16 135/71 H 94 Inital Vital Signs reviewed: Yes General: Well nourished, Well developed Head: Normocephalic ENT: Moist mucous membranes Neck: Supple Cardiovascular: Regular rate, Regular rhythm Respiratory: Diminished - Diminished bilateral bases. No wheezing are noted. Abdomen: Soft, Nontender Extremities: Edema - 2+ edema to the lower extremities. Abrasions noted to the left lower leg. Neurological: - - Patient resting with eyes closed. Will withdraw to pain. Diagnostic/Tx/Re-eval Impressions Chest X-Ray 08/10/19 18:31 IMPRESSION: Right basilar infiltrate and/or atelectasis. Small right-sided pleural effusion. Findings appear similar to the previous study. Electronically Signed: Gerald Calabrese MD at 19:04 EDT , Service support , 08/10/19 18:31 Chest 1 View (Portable) [RAD] Stat Laboratory Results 08/10/19 08/10/19 08/10/19 18:00 18:00 18:00 WBC 5.0 RBC 3.01 L Hgb 9.2 L Hct 31.6 L MCV 105.0 H MCH 30.6 MCHC 29.1 L RDW Std Deviation 66.8 H RDW Coeff of Alicia 17.2 H Plt Count 242 MPV 10.2 Immature Gran % (Auto) 0.200 Neut % (Auto) 70.6 H Lymph % (Auto) 14.6 L [place] % (Auto) 11.8 H Eos % (Auto) 2.4 Baso % (Auto) 0.4 Absolute Neuts (auto) 3.5 Absolute Lymphs (auto) 0.73 L Nucleated RBC % 0 Differential Comment Sodium 141 Potassium 4.3 Chloride 102 Carbon Dioxide 32.0 Anion Gap 7 BUN 36 H Creatinine 1.38 H Estim Creat Clear Calc 28.54 Est GFR (MDRD) Af Amer 47 L Est GFR (MDRD) Non-Af 39 L BUN/Creatinine Ratio 26.1 H Glucose 32 L* Calcium 8.4 L Total Bilirubin 0.60 Direct Bilirubin 0.24 AST 25 ALT 19 Alkaline Phosphatase 131 H Troponin I 0.042 B-Natriuretic Peptide 742.7 H Total Protein 7.2 Albumin 2.5 L Globulin 4.7 H Urine Color Urine Clarity Urine pH Ur Specific [place] Urine Protein Urine Glucose (UA) Urine Ketones Urine Occult Blood Urine Nitrite Urine Bilirubin Urine Urobilinogen Ur Leukocyte Esterase Urine RBC Urine WBC Ur Squamous Epith Cells Urine Bacteria Urine Mucus POC Glucose 08/10/19 08/10/19 08/10/19 18:15 18:41 19:00 WBC RBC Hgb Hct MCV MCH MCHC RDW Std Deviation RDW Coeff of Alicia Plt Count MPV Immature Gran % (Auto) Neut % (Auto) Lymph % (Auto) [place] % (Auto) Eos % (Auto) Baso % (Auto) Absolute Neuts (auto) Absolute Lymphs (auto) Nucleated RBC % Differential Comment Sodium Potassium Chloride Carbon Dioxide Anion Gap BUN Creatinine Estim Creat Clear Calc Est GFR (MDRD) Af Amer Est GFR (MDRD) Non-Af BUN/Creatinine Ratio Glucose Calcium Total Bilirubin Direct Bilirubin AST ALT Alkaline Phosphatase Troponin I B-Natriuretic Peptide Total Protein Albumin Globulin Urine Color Yellow Urine Clarity Clear Urine pH 6.0 Ur Specific [place] 1.015 Urine Protein 15 H Urine Glucose (UA) Normal Urine Ketones Negative Urine Occult Blood Negative Urine Nitrite Negative Urine Bilirubin Negative Urine Urobilinogen Normal Ur Leukocyte Esterase Negative Urine RBC 0 SEEN Urine WBC 0 SEEN Ur Squamous Epith Cells 0 SEEN Urine Bacteria 0 SEEN Urine Mucus 0 SEEN POC Glucose 28 L* 119 H 08/10/19 19:07 WBC RBC Hgb Hct MCV MCH MCHC RDW Std Deviation RDW Coeff of Alicia Plt Count MPV Immature Gran % (Auto) Neut % (Auto) Lymph % (Auto) [place] % (Auto) Eos % (Auto) Baso % (Auto) Absolute Neuts (auto) Absolute Lymphs (auto) Nucleated RBC % Differential Comment Sodium Potassium Chloride Carbon Dioxide Anion Gap BUN Creatinine Estim Creat Clear Calc Est GFR (MDRD) Af Amer Est GFR (MDRD) Non-Af BUN/Creatinine Ratio Glucose Calcium Total Bilirubin Direct Bilirubin AST ALT Alkaline Phosphatase Troponin I B-Natriuretic Peptide Total Protein Albumin Globulin Urine Color Urine Clarity Urine pH Ur Specific [place] Urine Protein Urine Glucose (UA) Urine Ketones Urine Occult Blood Urine Nitrite Urine Bilirubin Urine Urobilinogen Ur Leukocyte Esterase Urine RBC Urine WBC Ur Squamous Epith Cells Urine Bacteria Urine Mucus POC Glucose 84 - EKG Initial EKG Interpretation: Sinus Rhythm - Sinus at 75. No acute ischemia. - Medical Decision Making As I was in the room examining the patient and nursing staff was checking her blood sugar. Initial blood sugar return to the 20s. She was given an amp of D50. On repeat evaluation she was awake, alert, and answering questions. [place] back to reevaluate her after laboratory testing was back patient is sleeping comfortably. Nursing staff did note that her blood sugar went up to 119, then down to 86. D5 normal saline at 125 was started at that time. Repeat blood sugars pending currently. At this time she has a continued right lower lobe effusion. Family states that she has chronic scarring or a spot in her right lower lobe. Addendum: Blood sugar returns at 62. D5 normal saline will be turned up to 200 mL's per hour. ED Disposition - Plan for ED Patient: Disposition: Acute Care Hospital [facility] Diagnosis: Hypoglycemia Referrals: Fam Nieves Chi, MD [Primary Care Provider] -
--- NOTE | 2019-08-10 19:45 | HP.PCM_ITS ---
Problem List (1) CHF exacerbation Status: Acute Qualifiers: Heart failure type: diastolic Qualified Code(s): I50.33 - Acute on chronic diastolic (congestive) heart failure (2) Pneumonia Status: Acute Qualifiers: Pneumonia type: due to unspecified organism Laterality: right Lung location: lower lobe of lung Qualified Code(s): J18.9 - Pneumonia, unspecified organism (3) Encephalopathy acute Status: Acute (4) Hypoglycemia Status: Acute (5) Anxiety and depression Status: Chronic (6) Paroxysmal atrial fibrillation Status: Chronic (7) Anemia, unspecified Status: Chronic Qualifiers: Anemia type: unspecified type Qualified Code(s): D64.9 - Anemia, uns pecified (8) CKD (chronic kidney disease) Status: Chronic Qualifiers: Chronic kidney disease stage: stage 4 (severe) Qualified Code(s): N18.4 - Chronic kidney disease, stage 4 (severe) (9) Essential hypertension Status: Chronic (10) DM2 (diabetes mellitus, type 2) Status: Chronic Qualifiers: Diabetes mellitus prison insulin use: with remote computer terminal operator use Diabetes mellit complication status: with other specified complication Qualified Code(s): E11.69 - Type 2 diabetes mellitus with other specified complication; Z79.4 - remote computer terminal operator (current) use of insulin (11) COPD (chronic obstructive pulmonary disease) Status: Chronic Qualifiers: COPD type: unspecified COPD Qualified Code(s): J44.9 - Chronic obstructive pulmonary disease, unspecified (12) GERD (gastroesophageal reflux disease) Status: Chronic Qualifiers: Esophagitis presence: esophagitis presence not specified Qualified Code(s): K21.9 - Gastro-esophageal reflux disease without esophagitis History of Present Illness Date of Admission: 08/10/19 Chief Complaint: Recent discharge, onset increased LE edema, weight gain, dyspnea The patient is a 78 y/o F w PMHx: CKD stage IV, PAF on apixaban, HTN, HLD, GERD, Chronic COPD, Hx Sick sinus syndrome, Diabetes mellitus type II recent bacteremia during inpatient admission prior to TCU transition with cellulitis treated w/ doxycycline with unremarkable REYNALDO noted and UTI w/ hematuria requiring velázquez catheter with also CARLENE on CKD stage IV suspected secondary to ATN, septic shock, cardiogenic shock with 08/07/2019 oxygenation assessment with 83% on room air with ambulation, 90% on room air at rest and noted to be 89% on 2 L nasal cannula with ambulation prior to patient discharge who now re-presents to the [facility] ED on 08/10/19 with history of progressively worsening dyspnea with moist cough and congestion initially starting the prior Sunday with recent discharge on Tamiflu although respiratory panel was obtained and negative in addition to Levaquin for chest x-ray findings concerning for pneumonia with progressive decline since with no specific fevers or chills but noted concurrent lower extremity edema, weight gain and orthopnea with EMS evaluation prior to transition to the ED noting 81% on room air upon evaluation with immediate application of 3 L nasal cannula to maintain appropriate saturations in addition to increased confusion especially prior to ED presentation with EMS noted significant hypoglycemia. She has been having ongoing aerosols at home since her discharge. Work-up in the ED included weight with recent 08/06/2019 noted to be 228 pounds now increased to 242 pounds upon ED evaluation, T 97.4, heart rate 85, BP 164/57, respiratory rate 35, 92% on 2 L nasal cannula, CBC with WC 5, hemoglobin 9.2, platelet 242 with no significant left shift, CMP with BUN/creatinine 36/1.38, glucose 32 initially, troponin 0 0.042, BNP 742.7, UA unremarkable, chest x-ray with right basilar infiltrate and or atelectasis as well as small right pleural effusion. In the ED patient initiated on dextrose drip and discussed Lasix initiation with ED physician. Past Medical History Past Medical History (Chronic Problems): Chronic Problems (Last Reviewed 07/15/19 @ 13:20 by Alessandra Valdivia) Anxiety and depression (Chronic) History of respiratory failure (Chronic) extubated 06/18/2019 @ [facility] Paroxysmal atrial fibrillation (Chronic) Sick sinus syndrome (Chronic) Edema (Chronic) Anticoagulant long-term use (Chronic) Anemia, unspecified (Chronic) CKD (chronic kidney disease) (Chronic) Essential hypertension (Chronic) DM2 (diabetes mellitus, type 2) (Chronic) COPD (chronic obstructive pulmonary disease) (Chronic) GERD (gastroesophageal reflux disease) (Chronic) Methicillin resistant Staph aureus culture positive (Chronic) Cellulitis of right ankle (Chronic) Osteoporosis (Chronic) Anxiety (Chronic) GERD (gastroesophageal reflux disease) (Chronic) Insomnia (Chronic) Hyperlipidemia (Chronic) Medical History: Medical History (Last Reviewed 02/18/20 @ 13:20 by Alessandra Valdivia) Cardiogenic shock (Acute) R57.0 Bradycardia (Acute) R00.1 History of respiratory failure (Chronic) Z87.09 extubated 06/18/2019 @ [facility] Paroxysmal atrial fibrillation (Chronic) I48.0 Sick sinus syndrome (Chronic) I49.5 Renal failure (ARF), acute on chronic (Acute) N17.9, N18.9 Acute hyperkalemia (Acute) E87.5 Edema (Chronic) R60.9 Anticoagulant long-term use (Chronic) Z79.01 Anemia, unspecified (Chronic) D64.9 CKD (chronic kidney disease) (Chronic) N18.9 Essential hypertension (Chronic) I10 DM2 (diabetes mellitus, type 2) (Chronic) E11.9 COPD (chronic obstructive pulmonary disease) (Chronic) J44.9 GERD (gastroesophageal reflux disease) (Chronic) K21.9 Debility (Acute) R53.81 Methicillin resistant Staph aureus culture positive (Chronic) Z22.322 Hyperlipidemia (Chronic) E78.5 Anemia (Ruled-out) D64.9 Allergies Penicillins [PCN] Allergy (Verified 08/10/19 18:03) Other shellfish derived Allergy (Verified 08/10/19 18:03) Other Home Medications: Ambulatory Orders Medication Instructions Recorded Acetaminophen 1,000 mg PO TID 06/16/19 Alendronate Sodium 70 mg PO ELIZONDO 06/16/19 Ipratropium/Albuterol Sulfate 3 ml INHALATION Q6H PRN PRN 06/16/19 [Duoneb] Metoprolol Tartrate 25 mg PO BID 06/16/19 Simvastatin 40 mg PO QHS 06/16/19 traZODone [Desyrel] 50 mg PO QHS 06/16/19 Apixaban [Eliquis] 2.5 mg PO BID #60 tab 07/29/19 Cholecalciferol (VIT D3) [Vitamin 1,000 unit PO DAILY tab 07/29/19 D3] Furosemide [Lasix] 40 mg PO BID@0600,1300 #60 tab 07/29/19 Glimepiride [Amaryl] 2 mg PO DAILY@0800 tab 07/29/19 Iron Polysaccharide Complex 150 mg PO DAILYCM #30 cap 07/29/19 [Ferrex 150] Menthol/Lanolin/Calamine/Znox 1 applic TOPICAL 0600,2200 tube 07/29/19 [Calmoseptine Ointment] Mineral Oil/Petrolatum,White 1 applic TOPICAL 2200 jar 07/29/19 [Eucerin] Mirtazapine [Remeron] 7.5 mg PO QHS #30 tab 07/29/19 Nystatin Powder [Mycostatin Powder] 1 applic TOPICAL 0600,2200 bottle 07/29/19 Pantoprazole Sodium [Protonix] 40 mg PO DAILY #30 tab 07/29/19 Polyethylene Glycol 3350 [Miralax] 17 gm PO DAILY #30 packet 07/29/19 Senna/Docusate Sodium [Senokot-S] 1 tab PO BID #60 tab 07/29/19 levoFLOXacin tablet [Levaquin 250 mg PO DAILY@0600 #5 tab 08/05/19 tablet] Oseltamivir Phosphate [Tamiflu] 30 mg PO DAILY #7 cap 08/07/19 Albuterol Aerosols [Ventolin 2.5 mg INHALATION Q2H PRN PRN 08/10/19 Aerosols] Surgical History: Surgical History (Last Reviewed 07/15/19 @ 13:20 by Alessandra Valdivia) History of arthroscopic knee surgery Z98.890 History of cholecystectomy Z90.49 History of foot surgery Z98.890 X3 History of hemorrhoidectomy Z98.890 History of tonsillectomy Z90.89 History of tubal ligation Z98.51 Surgical History: - - Cholecystectomy, multiple foot surgeries, arthroscopic knee surgery, tubal ligation, tonsillectomy, hemorrhoidectomy. 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 Paternal History Items: - - Patient denies any market maternal family history including heart disease, diabetes or cancer. Review of Systems Constitutional: Reports: Anorexia, Malaise, Weakness, Fatigue. Denies: Chills, Fever, Weight Change HEENT: Denies: Head Aches, Sinus Congestion, Sinus Drainage Cardiovascular: Reports: Edema, Orthopnea. Denies: Chest Pain, Palpitations Respiratory: Reports: Cough, Shortness of Breath, Shortness of breath at rest, Shortness of breath upon exertion. Denies: Sputum production Gastrointestinal: Reports: Nausea. Denies: Abdominal Pain, Vomiting Genitourinary: Denies: Dysuria Musculoskeletal: Reports: Joint Pain. Denies: Joint Tenderness Skin: Denies: Rash, Wounds Neurological: Reports: Confusion. Denies: Focal weakness, Numbness, Tingling Psychiatric: Reports: Anxiety, Depression. Denies: Homicidal Ideations, Suicidal Ideations Hematologic/ Lymphatic: Reports: Anemia, Easy Bruising, Easy Bleeding VTE Information - Inpt Only VTE Present on Admission: No VTE Mechan Device Prophylaxis: SCD's VTE Pharm Prophylaxis ordered?: No Reason prophylaxis not ordered:: Treatment Not Indicated - Continue home apixaban regimen. Patient Problems: Active and Suspected Problems (Last Reviewed 07/15/19 @ 13:20 by Alessandra Valdivia) Hypoglycemia (Acute) CHF exacerbation (Acute) Pneumonia (Acute) Encephalopathy acute (Acute) Subjective: Patient seated upright in the ED bed, fatigued and ill-appearing. Objective: Physical Examination: General: awake, more alert, oriented self, place and recent events, improved s aidan initial ED presentation with blood sugar improvement however has been decreasing again, remains cooperative, seated upright in the ED bed in no apparent distress. Skin: normal color, turgor, no icterus, cyanosis. HEENT: AT/NC, EOMI, PERRLA, mildly dry MM, no carotid bruits, positive JVD. Lungs: Diminished breath sounds, greater bases, mild rales, greater right base, no rhonchi or wheezing. Heart: Regular rate and rhythm; no gallop, rub audible. Abdomen: soft, obese, NTTP, ND, normal BS, no HSM. Extremities: no cyanosis, clubbing, bilateral lower extremity pedal to distal reyze 2+ pitting edema. Neurological: patient awake, more alert, oriented as noted; cognitive function improving since initial ED presentation but still not baseline intact; pupils equally reactive to light and accomodation; cranial nerves II-XII grossly normal, moving all 4 extremities, no focal deficits, strength severely global decrease secondary to acute presentation. Psychiatric: affect appears fatigued, ill-appearing, no acute evidence of depressive or anxiety feelings. - Physical Exam Vitals/I&O's: Vital Signs Temp Pulse Resp BP Pulse Ox 97.4 F L 77 18 137/48 H 98 03/15/20 17:53 08/10/19 19:14 08/10/19 19:14 08/10/19 19:14 08/10/19 19:14 Oxygen Flow Rate (L/min) 2 Oxygen Delivery Method Nasal Cannula Weight: 242 lb 15.19 oz Body Mass Index (BMI) 41.7 Finger Stick Blood Glucose 84 Laboratory Results 08/10/19 18:00: WBC 5.0, RBC 3.01 L, Hgb 9.2 L, Hct 31.6 L, MCV 105.0 H, MCH 30.6, MCHC 29.1 L, RDW Std Deviation 66.8 H, RDW Coeff of Alicia 17.2 H, Plt Count 242, MPV 10.2, Immature Gran % (Auto) 0.200, Neut % (Auto) 70.6 H, Lymph % (Auto) 14.6 L, Gallia % (Auto) 11.8 H, Eos % (Auto) 2.4, Baso % (Auto) 0.4, Absolute Neuts (auto) 3.5, Absolute Lymphs (auto) 0.73 L, Nucleated RBC % 0, Differential Comment 08/10/19 18:00: Sodium 141, Potassium 4.3, Chloride 102, Carbon Dioxide 32.0, Anion Gap 7, BUN 36 H, Creatinine 1.38 H, Estim Creat Clear Calc 28.54, Est GFR (MDRD) Af Amer 47 L, Est GFR (MDRD) Non-Af 39 L, BUN/Creatinine Ratio 26.1 H, Glucose 32 L*, Calcium 8.4 L, Total Bilirubin 0.60, Direct Bilirubin 0.24, AST 25, ALT 19, Alkaline Phosphatase 131 H, Troponin I 0.042, Total Protein 7.2, Albumin 2.5 L, Globulin 4.7 H 08/10/19 18:00: B-Natriuretic Peptide 742.7 H 08/10/19 18:15: POC Glucose 28 L* 08/10/19 18:41: POC Glucose 119 H 08/10/19 19:00: Urine Color Yellow, Urine Clarity Clear, Urine pH 6.0, Ur Specific [place] 1.015, Urine Protein 15 H, Urine Glucose (UA) Normal, Urine Ketones Negative, Urine Occult Blood Negative, Urine Nitrite Negative, Urine Bilirubin Negative, Urine Urobilinogen Normal, Ur Leukocyte Esterase Negative, Urine RBC 0 SEEN, Urine WBC 0 SEEN, Ur Squamous Epith Cells 0 SEEN, Urine Bacteria 0 SEEN, Urine Mucus 0 SEEN 08/10/19 19:07: POC Glucose 84 Current Medications Dextrose/Sodium Chloride (Dextrose 5%/0.9% Nacl) 1,000 mls @ 125 mls/hr IV .Q8H NABIL Last Admin: 08/10/19 19:39 Dose: 125 mls/hr Documented by: Assessment/Plan All Active Problems (Last Reviewed 07/15/19 @ 13:20 by Alessandra Valdivia) Hypoglycemia (Acute) CHF exacerbation (Acute) Pneumonia (Acute) Encephalopathy acute (Acute) Cardiogenic shock (Acute) Bradycardia (Acute) Renal failure (ARF), acute on chronic (Acute) Acute hyperkalemia (Acute) Debility (Acute) Unresponsiveness (Resolved) History of respiratory failure with hypo (Resolved) Anemia (Ruled-out) The patient is a 78 y/o F w PMHx: CKD stage IV, PAF on apixaban, HTN, HLD, GERD, Chronic COPD, Hx Sick sinus syndrome, Diabetes mellitus type II recent bacteremia during inpatient admission prior to TCU transition with cellulitis treated w/ doxycycline with unremarkable REYNALDO noted and UTI w/ hematuria requiring velázquez catheter with also CARLENE on CKD stage IV suspected secondary to ATN, septic shock, cardiogenic shock who now re-presents to the [facility] ED on 08/10/19 with history of progressively worsening dyspnea with moist cough and congestion initially starting the prior Sunday with recent discharge on Tamiflu although respiratory panel was obtained and negative in addition to Levaquin for chest x-ray findings concerning for pneumonia with progressive decline since with no specific fevers or chills but noted concurrent lower e xtremity edema, weight gain and orthopnea, confusion. 1. Acute Hypoxic Respiratory Failure secondary to Acute CHF Exacerbation, Presumed Diastolic and concurrent #2 as noted: CXR obtained in the ED w/ right basilar infiltrate and around atelectasis with a small right pleural effusion, BNP 742.7, weight significantly increased over a short duration from 2027 pounds to now 242 pounds. Will admit to PCU, maintain on cardiac telemetry, obtain cardiac enzyme series, obtain serial EKGs, initiate IV lasix diuresis, monitor I/Os, maintain on intake restriction, continue medical therapy, obtain TSH and magnesium level. Most recent ECHO noted 07/24/2019 with mild concentric LVH, EF 65%, stage II diastolic dysfunction, severely dilated RV, moderate segmental dysfunction of RV, moderate severe TBI, RVSP 60 mmHg, small left pleural effusion. Cardiology consulted, pending. PRN morphine to decrease afterload, continue oxygen supplementation, if necessary will position w/ upright position with legs off bed to decrease preload. 2. Pneumonia, Possible GN/GP given recent prolonged hospitalization: Will maintain on oxygen with wean as tolerated to room air, continue ATC duonebs may consider Atrovent transition of rate concerning, PRN albuterol, maintained on IV Zosyn and Vancomycin pending MRSA screen with de-escalation if appropriate, HOB, IS parameters w/ pending sputum cultures and urine antigens. Recent respiratory viral panel negative, may consider repeat if necessary. 3. Acute Hypoglycemia with Diabetes mellitus type II: No longer on insulin, hold oral regimen, allow broad diet, continue accu checks more frequently with broadening of Accu-Cheks once clinically improved and able to transition off of D10 drip. Given volume overload status will attempt to limit fluid and concentr ate. 4. Chronic COPD: ATC duonebs but given PAF with RVR history may consider Atrovent transition if rate concerning, PRN albuterol, HOB, IS parameters. 5. Acute Encephalopathy, Multifactorial: Secondary to #1, #2, #3, continue treatments as noted, continue to monitor, fall precautions, aspiration precautions. 6. Chronic macrocytic anemia: Admission hemoglobin 9.2, baseline appears similar 8-9, continue to trend. 7. Chronic Kidney Disease Stage IV: Admission BUN/Cr 36/1.38, baseline renal function most recently 07/24/2021 08/01/2019 0.9-1, was elevated prior during previous admission, repeat BMP in AM. 8. Hypertension: Continue home regimen including metoprolol, IV Lasix as noted with oral transition once appropriate with hold parameters as needed, PRN hydralazine. 9. Hyperlipidemia: Continue home statin regimen. 10. Anxiety and depression: We will continue patient home mirtazapine trazodone regimen. 11. PAF: We will continue patient home metoprolol, apixaban. 12. GERD: Continue home PPI. 13. DVT prophylaxis: SCDs, continue apixaban. 14. CODE status: Patient MART is her daughter who is present and living will is currently in place. Discussed CODE status at length including difference between FULL code, DNR-CCA and DNR-CC status. Following discussions about the differences in these status, requested full CODE STATUS. Advanced Care Planning Face to Face Time: 16 minutes. Inpatient E&M: 42584 Init Hosp L3 Procedures: 40223 Advncd Care Plan 30 Min
[2019-08-10 19:56] LABS: Bedside Glucose 62 mg/dL (70-110)
[2019-08-10 20:26] LABS: Bedside Glucose 68 mg/dL (70-110)
--- NOTE | 2019-08-10 20:43 | ED.RN ---
pt's glucose 68, order to stop D5NS. pt now eating a sandwich and drinking orange juice. daughter at bedside.
[2019-08-10 22:22] LABS: Magnesium 1.3 mg/dL (1.6-2.6)
[2019-08-10] MEDS: Sodium Chloride 8.5 MEQ in Dextrose 10%-Water 250 ML 40 MEQ IV (22:32)
[2019-08-10] MEDS: Ipratropium/Albuterol Sulfate 3 ML AMPUL.NEB INHALATION (22:42)
[2019-08-10] MEDS: Furosemide 100 MG/10 ML Vial 40 MG IV (22:49)
[2019-08-10 23:01] LABS: Lactic Acid 1.6 mmol/L (0.4-1.9)
[2019-08-10] MEDS: traZODone 50 MG Tablet PO (23:08)
[2019-08-10] MEDS: APIXABAN 2.5 MG TABLET PO (23:08)
[2019-08-10] MEDS: Mirtazapine 15 MG Tablet 7.5 MG PO (23:09)
[2019-08-10] MEDS: Metoprolol Tartrate 25 MG Tablet PO (23:09)
[2019-08-10] MEDS: Atorvastatin Calcium 20 MG Tablet PO (23:09)
--- NOTE | 2019-08-10 23:34 | PCM.RX.CS ---
Consult Pharmacy has been consulted to manage selected antiobiotic: Vancomycin Type of Consult: New start Suspected Infection: Pneumonia Prior Doses of Antibiotics Received/Current Regimen: Medications Piperacillin Sod/Tazobactam (Sod 3.375 gm/ Sodium Chloride) 50 mls @ 12.5 mls/hr IV Q8 [facility] Labs: Sodium 141 mmol/L (136-145) 08/10/19 18:00 Potassium 4.3 mmol/L (3.5-5.1) 08/10/19 18:00 Chloride 102 mmol/L (98-107) 08/10/19 18:00 Carbon Dioxide 32.0 mmol/L (21.0-32.0) 08/10/19 18:00 Anion Gap 7 (5-15) 08/10/19 18:00 BUN 36 mg/dL (7-18) H 08/10/19 18:00 Creatinine 1.38 mg/dL (0.55-1.02) H 08/10/19 18:00 Est GFR (MDRD) Af Amer 47 mL/min (>60) L 08/10/19 18:00 Est GFR (MDRD) Non-Af 39 mL/min (>60) L 08/10/19 18:00 BUN/Creatinine Ratio 26.1 RATIO (10-20) H 08/10/19 18:00 Glucose 32 mg/dL (74-106) L* 08/10/19 18:00 Weight used for dosin kg Estimated Creatinine Clearance: 36.67 Goal Trough: 15-20 mcg/mL Pharmacy Plan for Drug Dosing: Pharmacy Service will continue to monitor and adjust dosing as required. Medications Vancomycin HCl 2,000 mg/ (Sodium Chloride) 540 mls @ 250 mls/hr IV X1 ONE Stop: 08/11/19 00:09 Last Admin: 08/10/19 23:05 Dose: 250 mls/hr Documented by: Vancomycin HCl 1,500 mg/ (Sodium Chloride) 530 mls @ 250 mls/hr IV Q12H [facility] Follow-Up Labs: Trough Vancomycin Labs to be done on [date and time ordered]: 08/11 @ 4017
[2019-08-10 23:56] LABS: Bedside Glucose 84 mg/dL (70-110)
[2019-08-11] VITALS (35 sets, daily range): BP systolic 102–153; BP diastolic 39–139; PULSE 74–90; RESP 12–24; TEMP 36.1–37.1; O2SAT 92–100
[2019-08-11 01:13] LABS: M R Staph aureus DNA By PCR Negative (Negative); Probe Check PASS; Specimen Processing Control PASS
[2019-08-11 01:21] LABS: Bedside Glucose 82 mg/dL (70-110)
[2019-08-11] MEDS: Dextrose 10%-Water 250 ML 999 ML IV (01:35)
[2019-08-11 01:46] LABS: Bedside Glucose 57 mg/dL (70-110)
[2019-08-11] MEDS: Ipratropium/Albuterol Sulfate 3 ML AMPUL.NEB INHALATION ×5 (02:42→19:13)
[2019-08-11 03:01] LABS: Bedside Glucose 71 mg/dL (70-110)
[2019-08-11] MEDS: Magnesium Sulfate 4gm/100mL 4 GM/100 ML IV.SOLN. IV ×2 (03:02→16:09)
[2019-08-11] MEDS: Glucagon 1 MG/ML Syringe 0.5 MG IV (03:03)
[2019-08-11] MEDS: Oseltamivir Phosphate 30 MG Capsule PO ×2 (03:04→13:19)
[2019-08-11] MEDS: Sodium Chloride 8.5 MEQ in Dextrose 10%-Water 250 ML 60 MEQ IV (03:50)
[2019-08-11 04:01] LABS: Bedside Glucose 84 mg/dL (70-110)
[2019-08-11 04:08] LABS: Absolute Lymphocyte Count 0.62 X10^3/uL (0.83-4.51); Absolute Neutrophil Count 3.2 X10^3/uL (2.0-7.7); Basophil# 0.01 X10^3/uL; Basophil% 0.2 % (0-1); Eosinophil# 0.15 X10^3/uL; Eosinophils% 3.4 % (0-5); Hematocrit 29.8 % (37-47); Hemoglobin 8.4 g/dL (12.0-15.0); Lymphocyte # 0.62 X10^3/ul (4.0); Lymphocyte % 14.2 % (19-41); Mean Corp Hgb Conc 28.2 g/dL (32-36); Mean Corpuscular Hgb 30.1 pg (27.0-32.0); Mean Corpuscular Volume 106.8 fL (81-99); Mean Platelet Vol. 9.7 fl (6.2-12.0); Monocyte# 0.33 X10^3/uL; Monocyte% 7.6 % (0-10); NRBC Flagged by Analyzer 0 % (0-5); Neutrophil # 3.24 X10^3/uL (2.7-7.7); Neutrophil % 74.1 % (47-70); POSITIVE MORPHOLOGY YES; Platelet Count 178 K/mm3 (150-450); RBC Distribution Width CV 16.7 % (11.6-14.6); RBC Distribution Width SD 66.6 fl (35.1-43.9); Red Blood Count 2.79 M/mm3 (4.2-5.4); White Blood Count 4.4 K/mm3 (4.4-11.0)
[2019-08-11 04:09] LABS: Differential Indicated SCAN CRITERIA MET
[2019-08-11 04:29] LABS: ALB/GLOB Ratio 0.5 RATIO (0.9-2.4); AST(SGOT) 21 U/L (15-37); Alanine Aminotransfer ALT/SGPT 16 U/L (13-56); Albumin, Serum 2.3 g/dL (3.2-5.0); Alkaline Phosphatase 121 U/L (45-117); Anion Gap 4 (5-15); BUN 34 mg/dL (7-18); BUN/Creat Ratio 25.2 RATIO (10-20); Chloride 101 mmol/L (98-107); Creatinine, Serum 1.35 mg/dL (0.55-1.02); EST Glomerular Filtration Rate 40 mL/min (>60); Est Glom Filt Rate - Afr Amer 49 mL/min (>60); Globulin 4.2 g/dL (2.2-4.2); Glucose 95 mg/dL (74-106); Potassium 3.9 mmol/L (3.5-5.1); Protein, Total 6.5 g/dL (6.4-8.2); Sodium Level 141 mmol/L (136-145)
[2019-08-11 04:33] LABS: Differential Comment SCANNED
[2019-08-11 04:34] LABS: Anisocytosis RARE; Macrocytosis RARE; Ovalocyte RARE; Platelet Estimate ADEQUATE (ADEQ)
--- NOTE | 2019-08-11 05:35 | RAD_ITS ---
HISTORY: Dyspnea EXAMINATION/TECHNIQUE: XR Chest 1 View: Portable COMPARISON: 08/10/2019 FINDINGS: Cardiac telemetry leads in place. No significant change. The heart is upper normal in size. Small right pleural effusion with right basilar atelectasis or infiltrate. The left lung shows no focal infiltrates. Atherosclerotic thoracic aorta. No pneumothorax. RAD/Chest 1 View (Portable) IMPRESSION: No significant change. Small right pleural effusion with right basilar atelectasis or infiltrate. at [id number] Reported and signed by: Dennys Blair MD Electronically Signed: Dennys Blair, at 7:05 EDT Tel , Service support ,
--- NOTE | 2019-08-11 05:55 | EKG12_ITS ---
Test Reason : AM EKG Blood Pressure : / mmHG Vent. Rate : 078 BPM Atrial Rate : 208 BPM P-R Int : 000 ms QRS Dur : 078 ms QT Int : 378 ms P-R-T Axes : 000 089 009 degrees QTc Int : 430 ms Normal Sinus Rhythm with PAC's Low voltage QRS Abnormal ECG When compared with ECG of 10-AUG-2019 19:29, Nonspecific T wave abnormality no longer evident in Anterolateral leads QT has lengthened Confirmed by MICHELLE BALTAZAR ([id number]), copy editor HIGINIO CASTAÑEDA ([id number]) on 08/18/2019 11:43:47 AM Referred By: MARLEE Confirmed By:MICHELLE BALTAZAR
[2019-08-11] MEDS: Furosemide 100 MG/10 ML Vial 40 MG IV ×3 (06:25→21:19)
[2019-08-11 06:40] LABS: Bedside Glucose 61 mg/dL (70-110)
--- NOTE | 2019-08-11 07:48 | PCM.PN.HOSP ---
Patient Problems: Active and Suspected Problems (Last Reviewed 07/15/19 @ 13:20 by Alessandra Valdivia) Hypoglycemia (Acute) CHF exacerbation (Acute) Pneumonia (Acute) Encephalopathy acute (Acute) Reason for Visit: Follow-up on acute hypoxic respiratory insufficiency/acute influenza A/acute on chronic diastolic CHF/acute metabolic encephalopathy/hypoglycemia Subjective: Patient was seen and examined. No acute events. Patient appears lethargic in the ICU. Been coughing. Remains on oxygen. Vitals/I&O's: Vital Signs Temp Pulse Resp BP Pulse Ox 98.2 F 83 20 H 118/70 97 08/11/19 06:00 08/11/19 06:44 08/11/19 06:44 08/11/19 06:00 08/11/19 06:44 Oxygen Flow Rate (L/min) 2 Oxygen Delivery Method Nasal Cannula Weight: 105.5 kg Body Mass Index (BMI) 43.4 Finger Stick Blood Glucose 62 Intake and Output for Last 24 Hours 08/09/19 08/10/19 08/11/19 23:59 23:59 23:59 Intake Total 165 / 165 1070.33 / 1070.33 Output Total 100 / 100 600 / 600 Balance 65 / 65 470.33 / 470.33 General: Alert, Cooperative, Confused, Lethargic, - - On 2 L of oxygen, appears frail HEENT: Atraumatic, PERRLA, EOMI, Normocephalic Oral: Dry Mucosa Neck: Supple Lungs: Diminished Cardiovascular: Regular rate, Regular Rhythm, Normal S1, Normal S2, No murmurs Abdomen: Bowel Sounds Present, Soft, Non Tender, Non-Distended, No Hepato-splenomegaly Extremities: Edema - 3?+4 edema, OPAL wraps to both legs Skin: No rashes Musculoskeletal: No Tenderness to Palpation of Joints or Extremities Lymphatic: No Cervical, Supraclavicular, or Inguinal Adenopathy Neurological: Cranial nerves II-XII grossly intact, Neuro grossly intact Psych/Mental Status: Normal Affect, Appropriate Microbiology Past 72 Hours 08/10/19 22:45 Mucosa - Nasopharyngeal Respiratory Panel (PCR) - Final Influenza A (Subtype H1) 08/10/19 19:00 Urine Catheter - Garcia Streptococcus pneumoniae Antigen (M - Final 08/10/19 19:00 Urine Catheter - Garcia Legionella Antigen - Final Laboratory Results 08/10/19 18:00: WBC 5.0, RBC 3.01 L, Hgb 9.2 L, Hct 31.6 L, MCV 105.0 H, MCH 30.6, MCHC 29.1 L, RDW Std Deviation 66.8 H, RDW Coeff of Alicia 17.2 H, Plt Count 242, MPV 10.2, Immature Gran % (Auto) 0.200, Neut % (Auto) 70.6 H, Lymph % (Auto) 14.6 L, [place] % (Auto) 11.8 H, Eos % (Auto) 2.4, Baso % (Auto) 0.4, Absolute Neuts (auto) 3.5, Absolute Lymphs (auto) 0.73 L, Nucleated RBC % 0, Differential Comment 08/10/19 18:00: Sodium 141, Potassium 4.3, Chloride 102, Carbon Dioxide 32.0, Anion Gap 7, BUN 36 H, Creatinine 1.38 H, Estim Creat Clear Calc 28.54, Est GFR (MDRD) Af Amer 47 L, Est GFR (MDRD) Non-Af 39 L, BUN/Creatinine Ratio 26.1 H, Glucose 32 L*, Calcium 8.4 L, Total Bilirubin 0.60, Direct Bilirubin 0.24, AST 25, ALT 19, Alkaline Phosphatase 131 H, Troponin I 0.042, Total Protein 7.2, Albumin 2.5 L, Globulin 4.7 H 08/10/19 18:00: B-Natriuretic Peptide 742.7 H 08/10/19 18:00: Magnesium 1.3 L, TSH 0.90 08/10/19 18:15: POC Glucose 28 L* 08/10/19 18:41: POC Glucose 119 H 08/10/19 19:00: Urine Color Yellow, Urine Clarity Clear, Urine pH 6.0, Ur Specific Mcintosh 1.015, Urine Protein 15 H, Urine Glucose (UA) Normal, Urine Ketones Negative, Urine Occult Blood Negative, Urine Nitrite Negative, Urine Bilirubin Negative, Urine Urobilinogen Normal, Ur Leukocyte Esterase Negative, Urine RBC 0 SEEN, Urine WBC 0 SEEN, Ur Squamous Epith Cells 0 SEEN, Urine Bacteria 0 SEEN, Urine Mucus 0 SEEN 08/10/19 19:07: POC Glucose 84 08/10/19 19:48: POC Glucose 62 L 08/10/19 20:22: POC Glucose 68 L 08/10/19 22:20: Lactic Acid 1.6 08/10/19 22:20: Troponin I 0.055 H 08/10/19 22:44: POC Glucose 82 08/10/19 23:00: MRSA (PCR) Negative 08/10/19 23:49: POC Glucose 84 08/11/19 01:27: POC Glucose 57 L 08/11/19 01:30: Troponin I 0.054 H 08/11/19 02:51: POC Glucose 71 08/11/19 03:50: POC Glucose 84 08/11/19 03:55: Hemoglobin A1c Pending 08/11/19 03:55: WBC 4.4, RBC 2.79 L, Hgb 8.4 L, Hct 29.8 L, MCV 106.8 H, MCH 30.1, MCHC 28.2 L, RDW Std Deviation 66.6 H, RDW Coeff of Alicia 16.7 H, Plt Count 178, MPV 9.7, Immature Gran % (Auto) 0.500, Neut % (Auto) 74.1 H, Lymph % (Auto) 14.2 L, [place] % (Auto) 7.6, Eos % (Auto) 3.4, Baso % (Auto) 0.2, Absolute Neuts (auto) 3.2, Absolute Lymphs (auto) 0.62 L, Nucleated RBC % 0, Differential Comment SCANNED, Platelet Estimate ADEQUATE, Anisocytosis RARE, Macrocytosis RARE, Ovalocytes RARE 08/11/19 03:55: Sodium 141, Potassium 3.9, Chloride 101, Carbon Dioxide 36.0 H, Anion Gap 4 L, BUN 34 H, Creatinine 1.35 H, Estim Creat Clear Calc 25.50, Est GFR (MDRD) Af Amer 49 L, Est GFR (MDRD) Non-Af 40 L, BUN/Creatinine Ratio 25.2 H, Glucose 95, Calcium 8.0 L, Total Bilirubin 0.70, AST 21, ALT 16, Alkaline Phosphatase 121 H, Total Protein 6.5, Albumin 2.3 L, Globulin 4.2, Albumin/Globulin Ratio 0.5 L 08/11/19 03:55: Troponin I 0.040 08/11/19 03:55: Magnesium Pending 08/11/19 06:38: POC Glucose 61 L Current Medications Acetaminophen (Tylenol) 650 mg PO Q6H PRN PRN PRN Reason: Pain Score 1-10/Temp > 100.7 F Al Hydroxide/Mg Hydroxide (Mylanta Ii) 30 ml PO Q6H PRN PRN PRN Reason: Gastric Burning Albuterol/Ipratropium (Duoneb) 3 ml INHALATION Q4HWA.RT [facility] Last Admin: 08/11/19 06:43 Dose: 3 ml Documented by: Apixaban (Eliquis) 2.5 mg PO BID [facility] Last Admin: 08/10/19 23:08 Dose: 2.5 mg Documented by: Aspirin (Aspirin, Baby) 81 mg PO DAILY@0800 [facility] Atorvastatin Calcium (Lipitor) 20 mg PO QHS [facility] Last Admin: 08/10/19 23:09 Dose: 20 mg Documented by: Calamine/Phenol (Calmoseptine Ointment) 1 applic TOPICAL 0600,2200 [facility]; Protocol Last Admin: 08/10/19 23:08 Dose: Not Given Documented by: Cholecalciferol (Vitamin D (25mcg)) 1,000 unit PO DAILY [facility] Furosemide (Lasix) 40 mg IV Q8 [facility] Last Admin: 08/11/19 06:25 Dose: 40 mg Documented by: Glucagon () 1 mg IM .X1 PRN PRN Reason: Hypoglycemia Guaifenesin (Robitussin) 20 ml PO Q4H PRN PRN PRN Reason: COUGH Sodium Chloride 8.5 meq/ (Dextrose) 252.125 mls @ 75 mls/hr IV .Q3H22M [facility] Last Admin: 08/11/19 03:50 Dose: 60 mls/hr Documented by: Vancomycin IV Pharmacy to Dose (1 ea/ Sodium Chloride) 500 mls @ 250 mls/hr IV X1 PRN; Protocol PRN Reason: Rx to Dose Piperacillin Sod/Tazobactam (Sod 3.375 gm/ Sodium Chloride) 50 mls @ 12.5 mls/hr IV Q8 [facility] Last Admin: 08/11/19 06:25 Dose: 12.5 mls/hr Documented by: Dextrose (Dextrose 10%-Water) 250 mls @ 999 mls/hr IV .Q16M PRN; Protocol PRN Reason: HYPOGLYCEMIA Last Infusion: 08/11/19 01:52 Dose: Infused Documented by: Sodium Chloride () 250 mls @ 15 mls/hr IV .[id number] PRN PRN Reason: Saline Flush Sodium Chloride () 250 mls @ 15 mls/hr IV .[id number] PRN PRN Reason: Additional IVPB Infusion Vancomycin HCl 1,500 mg/ (Sodium Chloride) 530 mls @ 250 mls/hr IV Q12H [facility] Metoprolol Tartrate (Lopressor (Beta Lucina)) 25 mg PO BID [facility] Last Admin: 08/10/19 23:09 Dose: 25 mg Documented by: Mirtazapine (Remeron) 7.5 mg PO QHS [facility] Last Admin: 08/10/19 23:09 Dose: 7.5 mg Documented by: Morphine Sulfate () 2 mg IV Q3H PRN PRN PRN Reason: Pain Score 6-10/10 Multi-Ingredient Cream (Eucerin) 1 applic TOPICAL 2200 [facility]; Protocol Last Admin: 08/10/19 23:08 Dose: Not Given Documented by: Nitroglycerin (Nitrostat) 0.4 mg SUBLINGUAL Q5M PRN PRN Reason: CARDIAC/CHEST PAIN Nystatin (Mycostatin Powder) 1 applic TOPICAL 0600,2200 [facility]; Protocol Last Admin: 08/10/19 23:09 Dose: Not Given Documented by: Ondansetron HCl (Zofran) 4 mg IV Q8H PRN PRN PRN Reason: NAUSEA/VOMITING Oseltamivir Phosphate (Tamiflu) 30 mg PO DAILY [facility] Stop: 08/14/19 10:01 Last Admin: 08/11/19 03:04 Dose: 30 mg Documented by: Oxycodone HCl (Oxyir) 5 mg PO Q4H PRN PRN PRN Reason: Pain Score 4-5/10 Pantoprazole Sodium (Protonix) 40 mg PO DAILY [facility] Polyethylene Glycol (Miralax) 17 gm PO DAILY [facility] Polysaccharide [facility] ([facility]rex 150[facility] Prochlorperazine Edisylate (Compazine Iv) 5 mg IV Q4H PRN PRN PRN Reason: Breakthrough Nausea/Vomiting Senna/Docusate Sodium (Senokot-S, Rachel-Colace) 1 tablet PO BID [facility] Last Admin: 08/10/19 23:09 Dose: Not Given Documented by: Sodium Chloride () 10 - 40 ml IV UD PRN PRN Reason: SALINE FLUSH Throat Lozenges (Cepacol Sore Throat Lozenge) 1 lozenge MUCOUS MEM Q2H PRN PRN PRN Reason: SORE THROAT Trazodone HCl (Desyrel) 50 mg PO QHS [facility] Last Admin: 08/10/19 23:08 Dose: 50 mg Documented by: STROKE Vital Signs/Narrative: Vital Signs Temp Pulse Resp BP Pulse Ox 08/11/19 06:44 83 20 H 97 08/11/19 06:00 98.2 F 78 15 118/70 99 08/11/19 05:00 98.2 F 78 16 129/49 H 98 08/11/19 04:00 97.1 F L 79 19 H 127/54 H 99 Medical Necessity - Tobacco Use Smoking Status: Never smoker Tobacco Use: Non-smoker Assessment/Plan All Active Problems (Last Reviewed 07/15/19 @ 13:20 by Alessandra Valdivia) Hypoglycemia (Acute) CHF exacerbation (Acute) Pneumonia (Acute) Encephalopathy acute (Acute) Cardiogenic shock (Acute) Bradycardia (Acute) Renal failure (ARF), acute on chronic (Acute) Acute hyperkalemia (Acute) Debility (Acute) Unresponsiveness (Resolved) History of respiratory failure with hypo (Resolved) Anemia (Ruled-out) 1. Acute hypoxic respiratory insufficiency, secondary to #2 and #3 patient was found to be hypoxic in the ED and improved on 2 L of oxygen. Did not require BiPAP overnight Continue on oxygen, encouraged use of incentive spirometer, breathing treatment 2. Acute on chronic diastolic CHF, patient with recent weight gain, Lasix IV every 8h, diuresed more than 5 kg since admission Continue same as well as with strict input output monitoring per CHF protocol 3. Probable pneumonia, MRSA PCR negative Patient was on vancomycin and Zosyn We will discontinue vancomycin and continue on Zosyn(day2) Continue breathing treatment. 4. Acute influenza A bronchitis, started on Tamiflu, will continue same 5. Acute metabolic encephalopathy secondary to hypoglycemia, use of oral hypoglycemics Mentation appears to be fluctuating, will continue to monitor as hypoglycemia is being treated 6. Hyperglycemia, secondary to poor p.o. intake COPD, no signs of acute exacerbation at this moment, Will continue to hold Amaryl, continue on blood glucose checks with insulin sliding scale 7. Hypertension/PAF, blood pressure and heart rate controlled, continue on metoprolol and apixaban 8. Anxiety/depression, continue on Remeron and trazodone 9. DVT PPx- On apixaban 10. GI PPx- on PPI Inpatient E&M: 48826 Subs Hosp L2
[2019-08-11 07:56] LABS: Magnesium 1.4 mg/dL (1.6-2.6)
[2019-08-11] MEDS: Nystatin Powder 15gm Bottle 1 APPLIC TOPICAL ×2 (08:00→21:21)
[2019-08-11] MEDS: Menthol/Lanolin/Calamine/Znox 113 GM Tube 1 APPLIC TOPICAL ×2 (08:00→21:20)
[2019-08-11] MEDS: Sodium Chloride 8.5 MEQ in Dextrose 10%-Water 250 ML 75 MEQ IV ×5 (08:06→23:09)
--- NOTE | 2019-08-11 08:29 | PCM.CON.CC ---
Problem List (1) Hypoglycemia Status: Acute (2) Anxiety and depression Status: Chronic (3) CHF exacerbation Status: Acute Qualifiers: Heart failure type: diastolic Qualified Code(s): I50.33 - Acute on chronic diastolic (congestive) heart failure (4) Encephalopathy acute Status: Acute (5) Paroxysmal atrial fibrillation Status: Chronic (6) Renal failure (ARF), acute on chronic Status: Acute (7) Anticoagulant long-term use Status: Chronic (8) CKD (chronic kidney disease) Status: Chronic Qualifiers: Chronic kidney disease stage: stage 4 (severe) Qualified Code(s): N18.4 - Chronic kidney disease, stage 4 (severe) (9) Essential hypertension Status: Chronic (10) DM2 (diabetes mellitus, type 2) Status: Chronic Qualifiers: Diabetes mellitus half-way insulin use: with efficiency expert use Diabetes mellitus complication status: with other specified complication Qualified Code(s): E11.69 - Type 2 diabetes mellitus with other specified complication; Z79.4 - inspector [place] (current) use of insulin (11) COPD (chronic obstructive pulmonary disease) Status: Chronic Qualifiers: COPD type: unspecified COPD Qualified Code(s): J44.9 - Chronic obstructive pulmonary disease, unspecified (12) GERD (gastroesophageal reflux disease) Status: Chronic Qualifiers: Esophagitis presence: esophagitis presence not specified Qualified Code(s): K21.9 - Gastro-esophageal reflux disease without esophagitis (13) Osteoporosis Status: Chronic (14) Anxiety Status: Chronic (15) GERD (gastroesophageal reflux disease) Status: Chronic (16) Insomnia Status: Chronic Reason for Consult Date of Consultation: 08/11/19 Reason for Consultation: Respiratory failure History of Present Illness: The patient is a 78 year old F, with past medical history listed below and well-known to me from the outpatient office, who presented to [facility] on 08/10/2019 after being discharged from the TCU 3 days ago. Patient was recently hospitalized with Mauricio nelson with RVR, hyperkalemia and renal failure. Patient reportedly was doing very well approximately a week ago and then developed respiratory symptoms approximately 4 days ago. Patient was treated with Levaquin and Tamiflu empirically. Patient did not have aerosol therapy until yesterday. Patient had a significant decline since moving home and has not been up and ambulatory. Patient had also reported increased lower extremity swelling and had not been taking much by mouth. In the ER, patient was noted to have a blood sugar in the 20s. Patient was given an amp of D50 with improvement in mental status. Patient's blood sugar went up to 119, but then started to drop to 86. Patient was placed on D5 normal saline. Chest x-ray showed a right effusion. Patient was admitted to the intensive care unit for further evaluation. Since being in the intensive care unit, patient has remained on a D10 drip with slowly increasing glucose levels. Patient has received an additional amp of D50. Patient is also on Lasix with marginal urine output. Patient has come back positive for influenza A and has been reinitiated on Tamiflu. Patient had to be placed on BiPAP therapy intermittently secondary to respiratory distress. Patient did not give any other positive responses to a complete review of systems. Review of systems otherwise negative from a constitutional, HEENT, respiratory, cardiovascular, GI, genitourinary, musculoskeletal, skin, neurologic, psychiatric and hematologic system unless stated above. Past Medical History Past Medical History (Chronic Problems): Chronic Problems (Last Reviewed 07/15/19 @ 13:20 by Alessandra Valdivia) Anxiety and depression (Chronic) History of respiratory failure (Chronic) extubated 06/18/2019 @ [facility] Paroxysmal atrial fibrillation (Chronic) Sick sinus syndrome (Chronic) Edema (Chronic) Anticoagulant long-term use (Chronic) Anemia, unspecified (Chronic) CKD (chronic kidney disease) (Chronic) Essential hypertension (Chronic) DM2 (diabetes mellitus, type 2) (Chronic) COPD (chronic obstructive pulmonary disease) (Chronic) GERD (gastroesophageal reflux disease) (Chronic) Methicillin resistant Staph aureus culture positive (Chronic) Cellulitis of right ankle (Chronic) Osteoporosis (Chronic) Anxiety (Chronic) GERD (gastroesophageal reflux disease) (Chronic) Insomnia (Chronic) Hyperlipidemia (Chronic) Medical History: Medical History (Last Reviewed 07/15/19 @ 13:20 by Alessandra Valdivia) Cardiogenic shock (Acute) R57.0 Bradycardia (Acute) R00.1 History of respiratory failure (Chronic) Z87.09 extubated 06/18/2019 @ [facility] Paroxysmal atrial fibrillation (Chronic) I48.0 Sick sinus syndrome (Chronic) I49.5 Renal failure (ARF), acute on chronic (Acute) N17.9, N18.9 Acute hyperkalemia (Acute) E87.5 Edema (Chronic) R60.9 Anticoagulant long-term use (Chronic) Z79.01 Anemia, unspecified (Chronic) D64.9 CKD (chronic kidney disease) (Chronic) N18.9 Essential hypertension (Chronic) I10 DM2 (diabetes mellitus, type 2) (Chronic) E11.9 COPD (chronic obstructive pulmonary disease) (Chronic) J44.9 GERD (gastroesophageal reflux disease) (Chronic) K21.9 Debility (Acute) R53.81 Methicillin resistant Staph aureus culture positive (Chronic) Z22.322 Hyperlipidemia (Chronic) E78.5 Anemia (Ruled-out) D64.9 Allergies Penicillins [PCN] Allergy (Verified 08/10/19 18:03) Other shellfish derived Allergy (Verified 08/10/19 18:03) Other Home Medications: Ambulatory Orders Medication Instructions Recorded Acetaminophen 1,000 mg PO TID 06/16/19 Alendronate Sodium 70 mg PO ELIZONDO 06/16/19 Ipratropium/Albuterol Sulfate 3 ml INHALATION Q6H PRN PRN 06/16/19 [Duoneb] Metoprolol Tartrate 25 mg PO BID 06/16/19 Simvastatin 40 mg PO QHS 06/16/19 traZODone [Desyrel] 50 mg PO QHS 06/16/19 Apixaban [Eliquis] 2.5 mg PO BID #60 tab 07/29/19 Cholecalciferol (VIT D3) [Vitamin 1,000 unit PO DAILY tab 07/29/19 D3] Furosemide [Lasix] 40 mg PO BID@0600,1300 #60 tab 07/29/19 Glimepiride [Amaryl] 2 mg PO DAILY@0800 tab 07/29/19 Iron Polysaccharide Complex 150 mg PO DAILYCM #30 cap 07/29/19 [Ferrex 150] Menthol/Lanolin/Calamine/Znox 1 applic TOPICAL 0600,2200 tube 07/29/19 [Calmoseptine Ointment] Mineral Oil/Petrolatum,White 1 applic TOPICAL 2200 jar 07/29/19 [Eucerin] Mirtazapine [Remeron] 7.5 mg PO QHS #30 tab 07/29/19 Nystatin Powder [Mycostatin Powder] 1 applic TOPICAL 0600,2200 bottle 07/29/19 Pantoprazole Sodium [Protonix] 40 mg PO DAILY #30 tab 07/29/19 Polyethylene Glycol 3350 [Miralax] 17 gm PO DAILY #30 packet 07/29/19 Senna/Docusate Sodium [Senokot-S] 1 tab PO BID #60 tab 07/29/19 levoFLOXacin tablet [Levaquin 250 mg PO DAILY@0600 #5 tab 08/05/19 tablet] Oseltamivir Phosphate [Tamiflu] 30 mg PO DAILY #7 cap 08/07/19 Albuterol Aerosols [Ventolin 2.5 mg INHALATION Q2H PRN PRN 08/10/19 Aerosols] Surgical History: Surgical History (Last Reviewed 07/15/19 @ 13:20 by Alessandra Valdivia) History of arthroscopic knee surgery Z98.890 History of cholecystectomy Z90.49 History of foot surgery Z98.890 X3 History of hemorrhoidectomy Z98.890 History of tonsillectomy Z90.89 History of tubal ligation Z98.51 Surgical History: - - Cholecystectomy, multiple foot surgeries, arthroscopic knee surgery, tubal ligation, tonsillectomy, hemorrhoidectomy. Psychiatric 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, Depression [employer] History: No pertinent [employer] history Lives: With Family Smoking Status: Never smoker Tobacco Use: Non-smoker Alcohol: None Drugs: None - *Family History Maternal History Items: - - Patient denies any market maternal family history including heart disease, diabetes or cancer. Paternal History Items: - - Patient denies any market maternal family history including heart disease, diabetes or cancer. Review of Systems Comment: See HPI Patient Problems: Active and Suspected Problems (Last Reviewed 07/15/19 @ 13:20 by Alessandra Valdivia) Hypoglycemia (Acute) CHF exacerbation (Acute) Pneumonia (Acute) Encephalopathy acute (Acute) Objective: Chest x-ray was personally reviewed and shows a small right pleural effusion with atelectasis or infiltrate. Recent complete PFT showed a severe mixed ventilatory defect with symmetric reduction diffusing capacity (FVC 43%, FEV1 39%, TLC 73%, RV 115%, DLCO 69%) Recent echocardiogram showed an EF of 65% with stage II diastolic dysfunction and a severely dilated RV. Right ventricular systolic pressures were 60 mmHg at that time. Patient also noted mild concentric LVH. - Physical Exam Vitals/I&O's: Vital Signs Temp Pulse Resp BP Pulse Ox 36.8 C 83 20 H 118/70 97 08/11/19 06:00 08/11/19 06:44 08/11/19 06:44 08/11/19 06:00 08/11/19 06:44 Oxygen Flow Rate (L/min) 2 Oxygen Delivery Method Nasal Cannula Weight: 105.5 kg Body Mass Index (BMI) 43.4 Finger Stick Blood Glucose 62 Intake and Output for Last 24 Hours 08/09/19 08/10/19 08/11/19 23:59 23:59 23:59 Intake Total 165 / 165 1322.455 / 1322.455 Output Total 100 / 100 600 / 600 Balance 65 / 65 722.455 / 722.455 General: Alert, Cooperative, - - Mild conversational dyspnea. Morbidly obese. Dry cough noted. HEENT: Atraumatic, PERRLA, EOMI, Normocephalic, - - No scleral icterus or injection noted Oral: Moist Mucosa, No Gingival or Mucosal Lesions/ Ulcerations Neck: Supple, No JVD, No Nodes, Trachea Midline Lungs: No rhonchi, No rales, Diminished, Wheezes, - - Symmetric expansion. Cardiovascular: Normal S1, Normal S2, No murmurs, Irregular Rate, No rub noted, No Gallop Abdomen: Bowel Sounds Present, Soft, Non Tender, Non-Distended Extremities: No clubbing, No cyanosis, Edema Skin: No rashes, No breakdown Musculoskeletal: No Tenderness to Palpation of Joints or Extremities Lymphatic: No Cervical, Supraclavicular, or Inguinal Adenopathy Neurological: Cranial nerves II-XII grossly intact, Neuro grossly intact, Motor Exam 5/5 strength throughout Psych/Mental Status: Normal Affect, Appropriate Microbiology Past 72 Hours 08/10/19 22:45 Mucosa - Nasopharyngeal Respiratory Panel (PCR) - Final Influenza A (Subtype H1) 08/10/19 19:00 Urine Catheter - Garcia Streptococcus pneumoniae Antigen (M - Final 08/10/19 19:00 Urine Catheter - Garcia Legionella Antigen - Final Laboratory Results 08/10/19 18:00: WBC 5.0, RBC 3.01 L, Hgb 9.2 L, Hct 31.6 L, MCV 105.0 H, MCH 30.6, MCHC 29.1 L, RDW Std Deviation 66.8 H, RDW Coeff of Alicia 17.2 H, Plt Count 242, MPV 10.2, Immature Gran % (Auto) 0.200, Neut % (Auto) 70.6 H, Lymph % (Auto) 14.6 L, [place] % (Auto) 11.8 H, Eos % (Auto) 2.4, Baso % (Auto) 0.4, Absolute Neuts (auto) 3.5, Absolute Lymphs (auto) 0.73 L, Nucleated RBC % 0, Differential Comment 08/10/19 18:00: Sodium 141, Potassium 4.3, Chloride 102, Carbon Dioxide 32.0, Anion Gap 7, BUN 36 H, Creatinine 1.38 H, Estim Creat Clear Calc 28.54, Est GFR (MDRD) Af Amer 47 L, Est GFR (MDRD) Non-Af 39 L, BUN/Creatinine Ratio 26.1 H, Glucose 32 L*, Calcium 8.4 L, Total Bilirubin 0.60, Direct Bilirubin 0.24, AST 25, ALT 19, Alkaline Phosphatase 131 H, Troponin I 0.042, Total Protein 7.2, Albumin 2.5 L, Globulin 4.7 H 08/10/19 18:00: B-Natriuretic Peptide 742.7 H 08/10/19 18:00: Magnesium 1.3 L, TSH 0.90 08/10/19 18:15: POC Glucose 28 L* 08/10/19 18:41: POC Glucose 119 H 08/10/19 19:00: Urine Color Yellow, Urine Clarity Clear, Urine pH 6.0, Ur Specific [place] 1.015, Urine Protein 15 H, Urine Glucose (UA) Normal, Urine Ketones Negative, Urine Occult Blood Negative, Urine Nitrite Negative, Urine Bilirubin Negative, Urine Urobilinogen Normal, Ur Leukocyte Esterase Negative, Urine RBC 0 SEEN, Urine WBC 0 SEEN, Ur Squamous Epith Cells 0 SEEN, Urine Bacteria 0 SEEN, Urine Mucus 0 SEEN 08/10/19 19:07: POC Glucose 84 08/10/19 19:48: POC Glucose 62 L 08/10/19 20:22: POC Glucose 68 L 08/10/19 22:20: Lactic Acid 1.6 08/10/19 22:20: Troponin I 0.055 H 08/10/19 22:44: POC Glucose 82 08/10/19 23:00: MRSA (PCR) Negative 08/10/19 23:49: POC Glucose 84 08/11/19 01:27: POC Glucose 57 L 08/11/19 01:30: Troponin I 0.054 H 08/11/19 02:51: POC Glucose 71 08/11/19 03:50: POC Glucose 84 08/11/19 03:55: Hemoglobin A1c Pending 08/11/19 03:55: WBC 4.4, RBC 2.79 L, Hgb 8.4 L, Hct 29.8 L, MCV 106.8 H, MCH 30.1, MCHC 28.2 L, RDW Std Deviation 66.6 H, RDW Coeff of Alicia 16.7 H, Plt Count 178, MPV 9.7, Immature Gran % (Auto) 0.500, Neut % (Auto) 74.1 H, Lymph % (Auto) 14.2 L, [place] % (Auto) 7.6, Eos % (Auto) 3.4, Baso % (Auto) 0.2, Absolute Neuts (auto) 3.2, Absolute Lymphs (auto) 0.62 L, Nucleated RBC % 0, Differential Comment SCANNED, Platelet Estimate ADEQUATE, Anisocytosis RARE, Macrocytosis RARE, Ovalocytes RARE 08/11/19 03:55: Sodium 141, Potassium 3.9, Chloride 101, Carbon Dioxide 36.0 H, Anion Gap 4 L, BUN 34 H, Creatinine 1.35 H, Estim Creat Clear Calc 25.50, Est GFR (MDRD) Af Amer 49 L, Est GFR (MDRD) Non-Af 40 L, BUN/Creatinine Ratio 25.2 H, Glucose 95, Calcium 8.0 L, Total Bilirubin 0.70, AST 21, ALT 16, Alkaline Phosphatase 121 H, Total Protein 6.5, Albumin 2.3 L, Globulin 4.2, Albumin/Globulin Ratio 0.5 L 08/11/19 03:55: Troponin I 0.040 08/11/19 03:55: Magnesium 1.4 L 08/11/19 06:38: POC Glucose 61 L Current Medications Acetaminophen (Tylenol) 650 mg PO Q6H PRN PRN PRN Reason: Pain Score 1-10/Temp > 100.7 F Al Hydroxide/Mg Hydroxide (Mylanta Ii) 30 ml PO Q6H PRN PRN PRN Reason: Gastric Burning Albuterol/Ipratropium (Duoneb) 3 ml INHALATION Q4HWA.RT ON LICENSE OF [facility] Last Admin: 08/11/19 06:43 Dose: 3 ml Documented by: Apixaban (Eliquis) 2.5 mg PO BID ON LICENSE OF [facility] Last Admin: 08/10/19 23:08 Dose: 2.5 mg Documented by: Aspirin (Aspirin, Baby) 81 mg PO DAILY@0800 ON LICENSE OF [facility] Atorvastatin Calcium (Lipitor) 20 mg PO QHS ON LICENSE OF [facility] Last Admin: 08/10/19 23:09 Dose: 20 mg Documented by: Calamine/Phenol (Calmoseptine Ointment) 1 applic TOPICAL 0600,2200 ON LICENSE OF [facility]; Protocol Last Admin: 08/10/19 23:08 Dose: Not Given Documented by: Cholecalciferol (Vitamin D (25mcg)) 1,000 unit PO DAILY ON LICENSE OF [facility] Furosemide (Lasix) 40 mg IV Q8 ON LICENSE OF [facility] Last Admin: 08/11/19 06:25 Dose: 40 mg Documented by: Glucagon () 1 mg IM .X1 PRN PRN Reason: Hypoglycemia Guaifenesin (Robitussin) 20 ml PO Q4H PRN PRN PRN Reason: COUGH Sodium Chloride 8.5 meq/ (Dextrose) 252.125 mls @ 75 mls/hr IV .Q3H22M ON LICENSE OF [facility] Last Admin: 08/11/19 08:06 Dose: 75 mls/hr Documented by: Vancomycin IV Pharmacy to Dose (1 ea/ Sodium Chloride) 500 mls @ 250 mls/hr IV X1 PRN; Protocol PRN Reason: Rx to Dose Piperacillin Sod/Tazobactam (Sod 3.375 gm/ Sodium Chloride) 50 mls @ 12.5 mls/hr IV Q8 ON LICENSE OF [facility] Last Admin: 08/11/19 06:25 Dose: 12.5 mls/hr Documented by: Dextrose (Dextrose 10%-Water) 250 mls @ 999 mls/hr IV .Q16M PRN; Protocol PRN Reason: HYPOGLYCEMIA Last Infusion: 08/11/19 01:52 Dose: Infused Documented by: Sodium Chloride () 250 mls @ 15 mls/hr IV .[id number] PRN PRN Reason: Saline Flush Sodium Chloride () 250 mls @ 15 mls/hr IV .[id number] PRN PRN Reason: Additional IVPB Infusion Vancomycin HCl 1,500 mg/ (Sodium Chloride) 530 mls @ 250 mls/hr IV Q12H ON LICENSE OF [facility] Metoprolol Tartrate (Lopressor (Beta Lucina)) 25 mg PO BID ON LICENSE OF [facility] Last Admin: 08/10/19 23:09 Dose: 25 mg Documented by: Mirtazapine (Remeron) 7.5 mg PO QHS ON LICENSE OF [facility] Last Admin: 08/10/19 23:09 Dose: 7.5 mg Documented by: Morphine Sulfate () 2 mg IV Q3H PRN PRN PRN Reason: Pain Score 6-10/10 Multi-Ingredient Cream (Eucerin) 1 applic TOPICAL 2200 ON LICENSE OF [facility]; Protocol Last Admin: 08/10/19 23:08 Dose: Not Given Documented by: Nitroglycerin (Nitrostat) 0.4 mg SUBLINGUAL Q5M PRN PRN Reason: CARDIAC/CHEST PAIN Nystatin (Mycostatin Powder) 1 applic TOPICAL 0600,2200 ON LICENSE OF [facility]; Protocol Last Admin: 08/10/19 23:09 Dose: Not Given Documented by: Ondansetron HCl (Zofran) 4 mg IV Q8H PRN PRN PRN Reason: NAUSEA/VOMITING Oseltamivir Phosphate (Tamiflu) 30 mg PO DAILY ON LICENSE OF [facility] Stop: 08/14/19 10:01 Last Admin: 08/11/19 03:04 Dose: 30 mg Documented by: Oxycodone HCl (Oxyir) 5 mg PO Q4H PRN PRN PRN Reason: Pain Score 4-5/10 Pantoprazole Sodium (Protonix) 40 mg PO DAILY ON LICENSE OF [facility] Polyethylene Glycol (Miralax) 17 gm PO DAILY ON LICENSE OF [facility] Polysaccharide Iron Complex (Ferrex 150) [facility] Prochlorperazine Edisylate (Compazine Iv) 5 mg IV Q4H PRN PRN PRN Reason: Breakthrough Nausea/Vomiting Senna/Docusate Sodium (Senokot-S, Rachel-Colace) 1 tablet PO BID ON LICENSE OF [facility] Last Admin: 08/10/19 23:09 Dose: Not Given Documented by: Sodium Chloride () 10 - 40 ml IV UD PRN PRN Reason: SALINE FLUSH Throat Lozenges (Cepacol Sore Throat Lozenge) 1 lozenge MUCOUS MEM Q2H PRN PRN PRN Reason: SORE THROAT Trazodone HCl (Desyrel) 50 mg PO QHS ON LICENSE OF [facility] Last Admin: 08/10/19 23:08 Dose: 50 mg Documented by: Clinical Impression(s) from Imaging Studies Chest X-Ray 08/10/19 18:31 IMPRESSION: Right basilar infiltrate and/or atelectasis. Small right-sided pleural effusion. Findings appear similar to the previous study. Electronically Signed: Gerald Calabrese MD at 19:04 EDT , Service support , Chest X-Ray 08/11/19 05:35 IMPRESSION: No significant change. Small right pleural effusion with right basilar atelectasis or infiltrate. at [id number] Reported and signed by: Dennys Blair MD Electronically Signed: Dennys Blair, at 7:05 EDT Tel , Service support , Assessment/Plan Active and Suspected Problems (Last Reviewed 07/15/19 @ 13:20 by Alessandra Valdivia) Hypoglycemia (Acute) CHF exacerbation (Acute) Pneumonia (Acute) Encephalopathy acute (Acute) RECOMMENDATIONS: 1. Titrate D10 drip as necessary with frequent glucose checks 2. Agree with diuresis 3. Empiric antibiotics and Tamiflu 4. Wean oxygen as tolerated 5. BiPAP rescue as necessary during the day IMPRESSIONS: 1. Acute hypoxic respiratory failure secondary to acute diastolic CHF exacerbation Care complicated by concomitant hypoglycemia and need for D10 drip. Patient is on diuretic therapy with marginal output considering. Patient does have severe mixed ventilatory defects on recent PFT, which complicates management. Will do BiPAP rescue as necessary during the day. Attempt -500 to 1000 cc over the next 24 hours. Complicated by concomitant influenza infection. Patient is on Tamiflu. 2. COPD exacerbation secondary to influenza A Patient does have a protracted hospital course and will be at risk for resistant organisms. Agree with IV Zosyn and vancomycin until further information is available. Patient currently hemodynamically stable. Unclear how much of patient's mental status is secondary to hypoglycemia versus severe sepsis. Would hold on fluid boluses given patient's marginal respiratory status. Patient is a full code and can be intubated if necessary. 3. Hypoglycemia Unclear etiology. Patient is currently on a D10 drip. Patient is on Amaryl as an outpatient. We will continue with every hour blood sugar checks and titrate drip as necessary to keep blood sugars between 80 and 120. 4. Acute metabolic encephalopathy Clinical suspicion for an element of diagnoses 1, 2 and 3 leading to mental status. Patient does appear to be improving with improved glucose, so this may be the main etiology. Would recommend delirium protocol. 5. CKD stage IV/hypertension/hyperlipidemia/anxiety/depression/paroxysmal A. fib/advanced age Complicates care, management, recovery and prognosis. Watch blood pressure closely. We will continue with metoprolol for rate control. Okay with Eliquis therapy at this time, but this may need to be reevaluated if patient's condition starts to deteriorate. Avoid benzodiazepines if possible. Haldol as necessary for agitation. TIME: 37 minutes critical care time spent addressing patient's acute hypoxic respiratory failure, influenza A, hypoglycemia, encephalopathy, review of all data and collaboration with care team (6 AM to 7 AM) [id number]: [id number] Critical care first hour
[2019-08-11 09:01] LABS: Bedside Glucose 68 mg/dL (70-110)
[2019-08-11 09:40] LABS: Bedside Glucose 82 mg/dL (70-110)
[2019-08-11 09:49] LABS: Hemoglobin A1c 6.3 % (4.2-6.3)
[2019-08-11 10:45] LABS: Bedside Glucose 87 mg/dL (70-110)
--- NOTE | 2019-08-11 10:52 | CASEMGMT ---
RN CM Assessment Note Presentation: Influenza A Intro role of CM and purpose of RN CM assessment to patient's granddaughter, DPOA.. Demographics, PCP and Pharmacy verified. Daughter voiced concern re: patient being discharged from TCU and needing to return to the hospital so quickly. Discussed dc plan with daughter. She would like pt to return to TCU if recommended as she was very weak over weekend and did not get out of bed. PCP: Dr. Nieves Preferred Pharmacy: [facility] Insurance: [facility] Prescription Benefit: yes LNOK : daughterIman Living Arrangements: Pt has been home from TCU since 08/07/2019. [facility] was arranged on dc. Transportation: family drives DME: , 3 in 1 commode, hospital bed with overlay mattress, Oxygen: [facility]. Script is for 2L PRN which is not allowable per [facility]. If pt returns home, new testing and script for O2 either with exertion, @ HS or continous would need to be ordered. HHC: [facility] consult: possible return to SNF on dc. Granddaughter is agreeable to TCU Family DC goals: Home vs return to TCU depending on pt's activity closer to dc. DC PLAN: udnetermined. PT/OT evals pending. Probable return to SNF on dc. Gail SOMERSN RN ACM
--- NOTE | 2019-08-11 10:55 | CASEMGMT ---
RN CM Assessment Note Presentation: Influenza A Intro role of CM and purpose of RN CM assessment to patient's daughter, ALINE.. Demographics, PCP and Pharmacy verified. Daughter voiced concern re: patient being discharged from TCU and needing to return to the hospital so quickly. Discussed dc plan with daughter. She would like pt to return to TCU if recommended as she was very weak over weekend and did not get out of bed. PCP: Dr. Nieves Preferred [facility]acy: [facility] Insurance: [facility] Prescription Benefit: yes LNOK : daughterIman Living Arrangements: Pt has been home from TCU since 08/07/2019. [facility] was arranged on dc. Transportation: family drives DME: , 3 in 1 commode, hospital bed with overlay mattress, Oxygen: [facility]. Script is for 2L PRN which is not allowable per [facility]. If pt returns home, new testing and script for O2 either with exertion, @ HS or continous would need to be ordered. HHC: [facility] consult: possible return to SNF on dc. Granddaughter is agreeable to TCU Family DC goals: Home vs return to TCU depending on pt's activity closer to dc. DC PLAN: udnetermined. PT/OT evals pending. Probable return to SNF on dc. Gail SOMERSN RN ACM
[2019-08-11 11:55] LABS: Bedside Glucose 85 mg/dL (70-110)
--- NOTE | 2019-08-11 12:56 | CASEMGMT ---
STEW spoke with Ninfa in TCU and they would not be able to take patient back. It is felt that patient will likely need bed bug exterminator care and TCU is short term. She was there previously for close to 50 days and was not improving. SW went to let patient's daughter know, but she had stepped out of the room and was on her phone. Kasye MERCEDES MSW
[2019-08-11] MEDS: Aspirin 81 MG TAB.CHEW PO (13:18)
[2019-08-11] MEDS: Pantoprazole Sodium 40 MG Tablet PO (13:18)
[2019-08-11] MEDS: APIXABAN 2.5 MG TABLET PO ×2 (13:18→21:19)
[2019-08-11] MEDS: Iron Polysaccharide Complex 150 MG CAPSULE PO (13:18)
[2019-08-11] MEDS: Metoprolol Tartrate 25 MG Tablet PO ×2 (13:18→21:18)
--- NOTE | 2019-08-11 13:38 | CASEMGMT ---
SW spoke with patient and her daughter. SW let them know TCU will not be able to take her back at discharge. Patient's daughter asked why. SW explained that they felt like if they were not able to rehab her when she was there for close to 50 days before they will not be able to rehab her now. The daughter said they did rehab her, but they sent her home sick. She was unhappy and made SW repeat this. SW asked if she would like a list of local SNF's or SNF's that are nearby where they live. She declined stating, I know what nursing homes are around. Plan: unknown at this time. Patient's daughter wanted TCU, but they are unable to take her. Patient's daughter declined a list of SNF's. Kasey MERCEDES MSW
[2019-08-11 14:31] LABS: Bedside Glucose 78 mg/dL (70-110)
--- NOTE | 2019-08-11 14:31 | CASEMGMT ---
MAUDE MARROQUIN Note: daughter requested to speak with RN CARA in waiting room. Discussed probable SNF placement in community. Daughter is aware of visiting restrictions at facilities. Had concerns with staffing due to current situation with staff members children not being in school. MAUDE MARROQUIN advised her to contact facility via phone and discuss concerns. Daughter also had concerns if pt reaches activity plateau at this facility, would they cut her again. MAUDE MARROQUIN discussed that for skilled care at SNF pt needs to be following guidelines set by [facility] for showing improvement with medical and PT/OT. Also let daughter know that their staff would keep her apprised of pt's progress and have family discussion prior to pt being discharged or changed from skilled to [facility] care designation. Also discussed other options could be considered at that time including assisted living or returning home with daughter. Daughter is aware of medicaid coverage and spend down if pt has assets so this was not discussed in detail. MAUDE MARROQUIN let daughter know she would not require another 3 day qualifying stay for admission to another facility. -daughter has equipment at home including hospital bed, walker, overlay mattress. Daughter was unsure whether to keep these items for now. RN CARA recommended she contact [facility] and discuss cost vs returning items. -List of area facilities given to patient. She would like referral to [facility]. STEW Slaughter updated on referral request. Gail PETE RN AC
--- NOTE | 2019-08-11 14:59 | CASEMGMT ---
STEW spoke with patient's daughter to confirm she would like a referral sent to [facility]. She said she actually wants to think about it more before deciding. SW told her that is fine and SW will follow along. Kasey MERCEDES MSW
--- NOTE | 2019-08-11 15:24 | CHAPLAIN ---
Type of Pastoral Visit _x__ Initial Visit ___ Follow-up Visit ___ On-call Visit ___ General Patient Visit ___ Spiritual Assessment ___ Family Conference ___ Bereavement ___ Rapid Response ___ Code Blue ___ Other (describe below) Pastoral Care Referral From _x__ Patient _x__ Family ___ Nurse ___ Physician ___ Distributor Advertising Material ___ Cheesemaker Helper ___ Other (describe below) Sacrament/Intervention ___ Active listening ___ Anointing ___ Mosque ___ Bereavement ___ Communion ___ Adura exploration ___ ___ Life review _x__ Prayer ___ Reconciliation ___ Sacrament of Sick _x__ Supportive presence ___ Wedding ___ Other (describe below) Pastoral Comments
[2019-08-11] MEDS: 0.9% Saline Lock 10 ML Syringe IV (15:51)
[2019-08-11 16:35] LABS: Bedside Glucose 61 mg/dL (70-110)
--- NOTE | 2019-08-11 17:17 | PCM.CONS.C ---
Reason for Consult Date of Consultation: 08/11/19 History of Present Illness: The patient is a 78 year old F, with past medical history listed below and well-known to me from the outpatient office, who presented to [facility] on 08/10/2019 after being discharged from the TCU 3 days ago. Patient was recently hospitalized with Mauricio nelson with RVR, hyperkalemia and renal failure. Patient reportedly was doing very well approximately a week ago and then developed respiratory symptoms approximately 4 days ago. Patient was treated with Levaquin and Tamiflu empirically. Patient did not have aerosol therapy until yesterday. Patient had a significant decline since moving home and has not been up and ambulatory. Patient had also reported increased lower extremity swelling and had not been taking much by mouth. In the ER, patient was noted to have a blood sugar in the 20s. Patient was given an amp of D50 with improvement in mental status. Patient's blood sugar went up to 119, but then started to drop to 86. Patient was placed on D5 normal saline. Chest x-ray showed a right effusion. Patient was admitted to the intensive care unit for further evaluation. Since being in the intensive care unit, patient has remained on a D10 drip with slowly increasing glucose levels. Patient has received an additional amp of D50. Patient is also on Lasix with marginal urine output. Patient has come back positive for influenza A and has been reinitiated on Tamiflu. Patient had to be placed on BiPAP therapy intermittently secondary to respiratory distress. Patient did not give any other positive responses to a complete review of systems. Review of systems otherwise negative from a constitutional, HEENT, respiratory, cardiovascular, GI, genitourinary, musculoskeletal, skin, neurologic, psychiatric and hematologic system unless stated above. Past Medical History Allergies/Adverse Reactions: Allergies Penicillins [PCN] Allergy (Verified 08/10/19 18:03) Other shellfish derived Allergy (Verified 08/10/19 18:03) Other Home Medications: Ambulatory Orders Medication Instructions Recorded Acetaminophen 1,000 mg PO TID 06/16/19 Alendronate Sodium 70 mg PO ELIZONDO 06/16/19 Ipratropium/Albuterol Sulfate 3 ml INHALATION Q6H PRN PRN 06/16/19 [Duoneb] Metoprolol Tartrate 25 mg PO BID 06/16/19 Simvastatin 40 mg PO QHS 06/16/19 traZODone [Desyrel] 50 mg PO QHS 06/16/19 Apixaban [Eliquis] 2.5 mg PO BID #60 tab 07/29/19 Cholecalciferol (VIT D3) [Vitamin 1,000 unit PO DAILY tab 07/29/19 D3] Furosemide [Lasix] 40 mg PO BID@0600,1300 #60 tab 07/29/19 Glimepiride [Amaryl] 2 mg PO DAILY@0800 tab 07/29/19 Iron Polysaccharide Complex 150 mg PO DAILYCM #30 cap 07/29/19 [Ferrex 150] Menthol/Lanolin/Calamine/Znox 1 applic TOPICAL 0600,2200 tube 07/29/19 [Calmoseptine Ointment] Mineral Oil/Petrolatum,White 1 applic TOPICAL 2200 jar 07/29/19 [Eucerin] Mirtazapine [Remeron] 7.5 mg PO QHS #30 tab 07/29/19 Nystatin Powder [Mycostatin Powder] 1 applic TOPICAL 0600,2200 bottle 07/29/19 Pantoprazole Sodium [Protonix] 40 mg PO DAILY #30 tab 07/29/19 Polyethylene Glycol 3350 [Miralax] 17 gm PO DAILY #30 packet 07/29/19 Senna/Docusate Sodium [Senokot-S] 1 tab PO BID #60 tab 07/29/19 levoFLOXacin tablet [Levaquin 250 mg PO DAILY@0600 #5 tab 08/05/19 tablet] Oseltamivir Phosphate [Tamiflu] 30 mg PO DAILY #7 cap 08/07/19 Albuterol Aerosols [Ventolin 2.5 mg INHALATION Q2H PRN PRN 08/10/19 Aerosols] Past Medical History (Chronic Problems): Chronic Problems (Last Reviewed 07/15/19 @ 13:20 by Alessandra Valdivia) Anxiety and depression (Chronic) History of respiratory failure (Chronic) extubated 06/18/2019 @ [facility] Paroxysmal atrial fibrillation (Chronic) Sick sinus syndrome (Chronic) Edema (Chronic) Anticoagulant long-term use (Chronic) Anemia, unspecified (Chronic) CKD (chronic kidney disease) (Chronic) Essential hypertension (Chronic) DM2 (diabetes mellitus, type 2) (Chronic) COPD (chronic obstructive pulmonary disease) (Chronic) GERD (gastroesophageal reflux disease) (Chronic) Methicillin resistant Staph aureus culture positive (Chronic) Cellulitis of right ankle (Chronic) Osteoporosis (Chronic) Anxiety (Chronic) GERD (gastroesophageal reflux disease) (Chronic) Insomnia (Chronic) Hyperlipidemia (Chronic) Surgical History: - - Cholecystectomy, multiple foot surgeries, arthroscopic knee surgery, tubal ligation, tonsillectomy, hemorrhoidectomy. Psychiatric 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, Depression EVENT ATTENDANT History: No pertinent EVENT ATTENDANT history - *Family History Maternal History Items: - - Patient denies any market maternal family history including heart disease, diabetes or cancer. Paternal History Items: - - Patient denies any market maternal family history including heart disease, diabetes or cancer. Lives: With Family Smoking Status: Never smoker Tobacco Use: Non-smoker Alcohol: None Drugs: None Objective: Vital Signs Temp Pulse Resp BP Pulse Ox 98.6 F 78 22 H 124/67 H 92 08/11/19 15:00 08/11/19 15:04 08/11/19 15:04 08/11/19 15:00 08/11/19 15:00 Oxygen Flow Rate (L/min) 2 Oxygen Delivery Method Nasal Cannula Weight: 232 lb 9.403 oz Body Mass Index (BMI) 43.4 Finger Stick Blood Glucose 62 Intake and Output for Last 24 Hours 08/09/19 08/10/19 08/11/19 23:59 23:59 23:59 Intake Total 165 / 165 1976.705 / 1976.705 Output Total 100 / 100 1300 / 1300 Balance 65 / 65 676.705 / 676.705 General: Awake HEENT: Atraumatic Oral: Moist Mucosa Neck: Supple, No JVD Cardiovascular: Regular Rhythm Extremities: Trace LLE Edema Skin: No Rashes 08/10/19 18:00: WBC 5.0, RBC 3.01 L, Hgb 9.2 L, Hct 31.6 L, MCV 105.0 H, MCH 30.6, MCHC 29.1 L, Plt Count 242, MPV 10.2, Immature Gran % (Auto) 0.200, Neut % (Auto) 70.6 H, Lymph % (Auto) 14.6 L, [place] % (Auto) 11.8 H, Eos % (Auto) 2.4, Baso % (Auto) 0.4, Absolute Neuts (auto) 3.5, Nucleated RBC % 0 08/10/19 18:00: Sodium 141, Potassium 4.3, Chloride 102, Carbon Dioxide 32.0, Anion Gap 7, BUN 36 H, Creatinine 1.38 H, Est GFR (MDRD) Af Amer 47 L, Est GFR (MDRD) Non-Af 39 L, BUN/Creatinine Ratio 26.1 H, Glucose 32 L*, Calcium 8.4 L, Total Bilirubin 0.60, Direct Bilirubin 0.24, Troponin I 0.042 08/10/19 18:00: B-Natriuretic Peptide 742.7 H 08/10/19 18:00: Magnesium 1.3 L 08/10/19 19:00: Urine Color Yellow, Urine Clarity Clear, Urine pH 6.0, Ur Specific [place] 1.015, Urine Protein 15 H, Urine Glucose (UA) Normal, Urine Ketones Negative, Urine Occult Blood Negative, Urine Nitrite Negative, Urine Bilirubin Negative, Urine Urobilinogen Normal, Ur Leukocyte Esterase Negative, Urine RBC 0 SEEN, Urine WBC 0 SEEN 08/10/19 22:20: Lactic Acid 1.6 08/10/19 22:20: Troponin I 0.055 H 08/11/19 01:30: Troponin I 0.054 H 08/11/19 03:55: Hemoglobin A1c 6.3 08/11/19 03:55: WBC 4.4, RBC 2.79 L, Hgb 8.4 L, Hct 29.8 L, MCV 106.8 H, MCH 30.1, MCHC 28.2 L, Plt Count 178, MPV 9.7, Immature Gran % (Auto) 0.500, Neut % (Auto) 74.1 H, Lymph % (Auto) 14.2 L, [place] % (Auto) 7.6, Eos % (Auto) 3.4, Baso % (Auto) 0.2, Absolute Neuts (auto) 3.2, Nucleated RBC % 0 08/11/19 03:55: Sodium 141, Potassium 3.9, Chloride 101, Carbon Dioxide 36.0 H, Anion Gap 4 L, BUN 34 H, Creatinine 1.35 H, Est GFR (MDRD) Af Amer 49 L, Est GFR (MDRD) Non-Af 40 L, BUN/Creatinine Ratio 25.2 H, Glucose 95, Calcium 8.0 L, Total Bilirubin 0.70 08/11/19 03:55: Troponin I 0.040 08/11/19 03:55: Magnesium 1.4 L Rhythm: EKG: ECHO: Stress Test: Cardiac Cath: PCI: CT Surgery: Holter monitor: EPS: PPM: CXR: Chest CT Scan: Assessment/Plan 1. Shortness of breath: Appears to be more related to her viral illness. Patient has preserved EF by recent 2D echo. Consider discontinuing IV Lasix or decreasing it to 40 mg IV once a day.
[2019-08-11 17:40] LABS: Bedside Glucose 72 mg/dL (70-110)
[2019-08-11 19:11] LABS: Bedside Glucose 79 mg/dL (70-110)
[2019-08-11 20:16] LABS: Bedside Glucose 82 mg/dL (70-110)
[2019-08-11] MEDS: Atorvastatin Calcium 20 MG Tablet PO (21:18)
[2019-08-11] MEDS: traZODone 50 MG Tablet PO (21:19)
[2019-08-11] MEDS: Senna/Docusate Sodium 1 Tablet PO (21:19)
[2019-08-11] MEDS: Mirtazapine 15 MG Tablet 7.5 MG PO (21:19)
[2019-08-11 21:41] LABS: BUN 29 mg/dL (7-18); BUN/Creat Ratio 23.8 RATIO (10-20); Calcium,Total 8.4 mg/dL (8.5-10.1); Creatinine, Serum 1.22 mg/dL (0.55-1.02); EST Glomerular Filtration Rate 45 mL/min (>60); Est Glom Filt Rate - Afr Amer 55 mL/min (>60); Estimated Creatinine Clearance 28.22 ml/min; Glucose 88 mg/dL (74-106)
[2019-08-11 21:42] LABS: Anion Gap 3 (5-15); Chloride 102 mmol/L (98-107); Potassium 4.2 mmol/L (3.5-5.1); Sodium Level 141 mmol/L (136-145)
[2019-08-11 23:10] LABS: Bedside Glucose 83 mg/dL (70-110)
[2019-08-12] VITALS (33 sets, daily range): BP systolic 83–150; BP diastolic 41–106; PULSE 74–99; RESP 12–28; TEMP 36.7–37.3; O2SAT 90–100
[2019-08-12 00:21] LABS: Bedside Glucose 102 mg/dL (70-110)
[2019-08-12 00:21] LABS: Bedside Glucose 97 mg/dL (70-110)
[2019-08-12 02:36] LABS: Bedside Glucose 116 mg/dL (70-110)
[2019-08-12 02:36] LABS: Bedside Glucose 105 mg/dL (70-110)
[2019-08-12] MEDS: Sodium Chloride 8.5 MEQ in Dextrose 10%-Water 250 ML 75 MEQ IV ×2 (02:45→06:05)
[2019-08-12 04:31] LABS: Bedside Glucose 107 mg/dL (70-110)
[2019-08-12 04:31] LABS: Bedside Glucose 117 mg/dL (70-110)
[2019-08-12 04:53] LABS: Absolute Lymphocyte Count 0.92 X10^3/uL (0.83-4.51); Absolute Neutrophil Count 3.9 X10^3/uL (2.0-7.7); Basophil# 0.02 X10^3/uL; Basophil% 0.4 % (0-1); Eosinophil# 0.26 X10^3/uL; Eosinophils% 4.6 % (0-5); Hematocrit 31.5 % (37-47); Hemoglobin 9.2 g/dL (12.0-15.0); Lymphocyte # 0.92 X10^3/ul (4.0); Lymphocyte % 16.3 % (19-41); Mean Corp Hgb Conc 29.2 g/dL (32-36); Mean Corpuscular Hgb 30.3 pg (27.0-32.0); Mean Corpuscular Volume 103.6 fL (81-99); Mean Platelet Vol. 10.2 fl (6.2-12.0); Monocyte# 0.57 X10^3/uL; Monocyte% 10.1 % (0-10); NRBC Flagged by Analyzer 0 % (0-5); Neutrophil # 3.86 X10^3/uL (2.7-7.7); Neutrophil % 68.4 % (47-70); Platelet Count 197 K/mm3 (150-450); RBC Distribution Width CV 16.9 % (11.6-14.6); RBC Distribution Width SD 64.7 fl (35.1-43.9); Red Blood Count 3.04 M/mm3 (4.2-5.4); White Blood Count 5.6 K/mm3 (4.4-11.0)
[2019-08-12 05:13] LABS: ALB/GLOB Ratio 0.5 RATIO (0.9-2.4); AST(SGOT) 20 U/L (15-37); Alanine Aminotransfer ALT/SGPT 15 U/L (13-56); Albumin, Serum 2.2 g/dL (3.2-5.0); Alkaline Phosphatase 123 U/L (45-117); Anion Gap 5 (5-15); BUN 29 mg/dL (7-18); BUN/Creat Ratio 25.2 RATIO (10-20); Calcium,Total 8.4 mg/dL (8.5-10.1); Chloride 96 mmol/L (98-107); Creatinine, Serum 1.15 mg/dL (0.55-1.02); EST Glomerular Filtration Rate 48 mL/min (>60); Est Glom Filt Rate - Afr Amer 58 mL/min (>60); Estimated Creatinine Clearance 29.93 ml/min; Globulin 4.3 g/dL (2.2-4.2); Glucose 125 mg/dL (74-106); Magnesium 2.4 mg/dL (1.6-2.6); Potassium 3.8 mmol/L (3.5-5.1); Protein, Total 6.5 g/dL (6.4-8.2); Sodium Level 137 mmol/L (136-145)
[2019-08-12] MEDS: Furosemide 100 MG/10 ML Vial 40 MG IV (06:07)
[2019-08-12] MEDS: Nystatin Powder 15gm Bottle 1 APPLIC TOPICAL ×2 (06:10→21:53)
[2019-08-12] MEDS: Menthol/Lanolin/Calamine/Znox 113 GM Tube 1 APPLIC TOPICAL ×2 (06:10→21:51)
[2019-08-12 06:20] LABS: Bedside Glucose 126 mg/dL (70-110)
[2019-08-12] MEDS: Ipratropium/Albuterol Sulfate 3 ML AMPUL.NEB INHALATION ×4 (07:33→19:19)
--- NOTE | 2019-08-12 07:42 | PN_ITS ---
Patient Problems: Active and Suspected Problems (Last Reviewed 07/15/19 @ 13:20 by Alessandra Valdivia) Hypoglycemia (Acute) CHF exacerbation (Acute) Pneumonia (Acute) Encephalopathy acute (Acute) Reason for Visit: Follow-up on acute hypoxic respiratory insufficiency/acute influenza A/acute on chronic diastolic CHF/acute metabolic encephalopathy/hypoglycemia Subjective: Patient was seen and examined. She still appears lethargic. Having cough spurts with difficulty in expectorating. No fevers noted Objective: Physical exam: General: Alert, Cooperative, Confused, Lethargic, - - On 2 L of oxygen, appears frail HEENT: Atraumatic, PERRLA, EOMI, Normocephalic Oral: Dry Mucosa Neck: Supple Lungs: Diminished Cardiovascular: Regular rate, Regular Rhythm, Normal S1, Normal S2, No murmurs Abdomen: Bowel Sounds Present, Soft, Non Tender, Non-Distended, No Hepato- splenomegaly Extremities: Edema - 3?+4 edema, OPAL wraps to both legs Skin: No rashes Musculoskeletal: No Tenderness to Palpation of Joints or Extremities Lymphatic: No Cervical, Supraclavicular, or Inguinal Adenopathy Neurological: Cranial nerves II-XII grossly intact, Neuro grossly intact Psych/Mental Status: Normal Affect, Appropriate Vitals/I&O's: Vital Signs Temp Pulse Resp BP Pulse Ox 98.4 F 85 19 H 128/52 H 98 08/12/19 06:00 08/12/19 06:00 08/12/19 06:00 08/12/19 06:00 08/12/19 06:00 Oxygen Flow Rate (L/min) 2 Oxygen Delivery Method Nasal Cannula Weight: 104.2 kg Body Mass Index (BMI) 43.4 Finger Stick Blood Glucose 62 Intake and Output for Last 24 Hours 08/10/19 08/11/19 08/12/19 23:59 23:59 23:59 Intake Total 165 / 165 2728.830 / 2761.750 614.625 / 614.625 Output Total 100 / 100 1900 / 3000 2200 / 2200 Balance 65 / 65 828.830 / -238.250 -1585.375 / -1585.375 Microbiology Past 72 Hours 08/10/19 22:45 Mucosa - Nasopharyngeal Respiratory Panel (PCR) - Final Influenza A (Subtype H1) 08/10/19 18:00 Sputum, Expectorated/Coughed Gram Stain - Final 08/10/19 18:00 Sputum, Expectorated/Coughed Respiratory Culture - Preli minary Culture exhibits no growth. 08/10/19 19:00 Urine Catheter - Garcia Streptococcus pneumoniae Antigen (M - Final 08/10/19 19:00 Urine Catheter - Garcia Legionella Antigen - Final Laboratory Results 08/11/19 03:55: Hemoglobin A1c 6.3 08/11/19 03:55: Magnesium 1.4 L 08/11/19 08:30: POC Glucose 68 L 08/11/19 09:27: POC Glucose 82 08/11/19 10:38: POC Glucose 87 08/11/19 11:47: POC Glucose 85 08/11/19 14:23: POC Glucose 78 08/11/19 16:27: POC Glucose 61 L 08/11/19 17:37: POC Glucose 72 08/11/19 19:02: POC Glucose 79 08/11/19 19:58: POC Glucose 82 08/11/19 21:00: Sodium 141, Potassium 4.2, Chloride 102, Carbon Dioxide 36.0 H, Anion Gap 3 L, BUN 29 H, Creatinine 1.22 H, Estim Creat Clear Calc 28.22, Est GFR (MDRD) Af Amer 55 L, Est GFR (MDRD) Non-Af 45 L, BUN/Creatinine Ratio 23.8 H , Glucose 88, Calcium 8.4 L 08/11/19 21:17: POC Glucose 83 08/11/19 23:07: POC Glucose 102 08/12/19 00:16: POC Glucose 97 08/12/19 00:56: POC Glucose 116 H 08/12/19 02:28: POC Glucose 105 08/12/19 03:11: POC Glucose 107 08/12/19 04:16: POC Glucose 117 H 08/12/19 04:20: WBC 5.6, RBC 3.04 L, Hgb 9.2 L, Hct 31.5 L, MCV 103.6 H, MCH 30.3, MCHC 29.2 L, RDW Std Deviation 64.7 H, RDW Coeff of Alicia 16.9 H, Plt Count 197, MPV 10.2, Immature Gran % (Auto) 0.200, Neut % (Auto) 68.4, Lymph % (Auto) 16.3 L, [place] % (Auto) 10.1 H, Eos % (Auto) 4.6, Baso % (Auto) 0.4, Absolute Neuts (auto) 3.9, Absolute Lymphs (auto) 0.92, Nucleated RBC % 0 08/12/19 04:20: Sodium 137, Potassium 3.8, Chloride 96 L, Carbon Dioxide 36.0 H, Anion Gap 5, BUN 29 H, Creatinine 1.15 H, Estim Creat Clear Calc 29.93, Est GFR (MDRD) Af Amer 58 L, Est GFR (MDRD) Non-Af 48 L, BUN/Creatinine Ratio 25.2 H, Glucose 125 H, Calcium 8.4 L, Magnesium 2.4, Total Bilirubin 0.70, AST 20, ALT 15, Alkaline Phosphatase 123 H, Total Protein 6.5, Albumin 2.2 L, Globulin 4.3 H , Albumin/Globulin Ratio 0.5 L 08/12/19 06:07: POC Glucose 126 H Current Medications Acetaminophen (Tylenol) 650 mg PO Q6H PRN PRN PRN Reason: Pain Score 1-10/Temp > 100.7 F Al Hydroxide/Mg Hydroxide (Mylanta Ii) 30 ml PO Q6H PRN PRN PRN Reason: Gastric Burning Albuterol/Ipratropium (Duoneb) 3 ml INHALATION Q4HWA.RT [facility] Last Admin: 08/12/19 07:33 Dose: 3 ml Documented by: Apixaban (Eliquis) 2.5 mg PO BID [facility] Last Admin: 08/11/19 21:19 Dose: 2.5 mg Documented by: Aspirin (Aspirin, Baby) 81 mg PO DAILY@0800 [facility] Last Admin: 08/11/19 13:18 Dose: 81 mg Documented by: Atorvastatin Calcium (Lipitor) 20 mg PO QHS [facility] Last Admin: 08/11/19 21:18 Dose: 20 mg Documented by: Calamine/Phenol (Calmoseptine Ointment) 1 applic TOPICAL 0600,2200 [facility]; Protocol Last Admin: 08/12/19 06:10 Dose: 1 applicatio Documented by: Cholecalciferol (Vitamin D (25mcg)) 1,000 unit PO DAILY [facility] Last Admin: 08/11/19 13:19 Dose: 1,000 unit Documented by: Furosemide (Lasix) 40 mg IV BID [facility] Glucagon () 1 mg IM .X1 PRN PRN Reason: Hypoglycemia Guaifenesin (Robitussin) 20 ml PO Q4H PRN PRN PRN Reason: COUGH Sodium Chloride 8.5 meq/ (Dextrose) 252.125 mls @ 50 mls/hr IV .Q5H3M [facility] Last Infusion: 08/12/19 06:31 Dose: 50 mls/hr Documented by: Piperacillin Sod/Tazobactam (Sod 3.375 gm/ Sodium Chloride) 50 mls @ 12.5 mls/hr IV Q8 [facility] Last Admin: 08/12/19 06:07 Dose: 12.5 mls/hr Documented by: Dextrose (Dextrose 10%-Water) 250 mls @ 999 mls/hr IV .Q16M PRN; Protocol PRN Reason: HYPOGLYCEMIA Last Infusion: 08/11/19 01:52 Dose: Infused Documented by: Sodium Chloride () 250 mls @ 15 mls/hr IV .[id number] PRN PRN Reason: Saline Flush Sodium Chloride () 250 mls @ 15 mls/hr IV .[id number] PRN PRN Reason: Additional IVPB Infusion Metoprolol Tartrate (Lopressor (Beta Lucina)) 25 mg PO BID [facility] Last Admin: 08/11/19 21:18 Dose: 25 mg Documented by: Mirtazapine (Remeron) 7.5 mg PO QHS [facility] Last Admin: 08/11/19 21:19 Dose: 7.5 mg Documented by: Morphine Sulfate () 2 mg IV Q3H PRN PRN PRN Reason: Pain Score 6-10/10 Multi-Ingredient Cream (Eucerin) 1 applic TOPICAL 0 [facility]; Protocol Last Admin: 08/11/19 21:20 Dose: 1 applicatio Documented by: Nitroglycerin (Nitrostat) 0.4 mg SUBLINGUAL Q5M PRN PRN Reason: CARDIAC/CHEST PAIN Nutritional Formula (Lactose Free) (Glucerna Shake) 120 ml PO 4X/DAY [facility] Last Admin: 08/11/19 21:19 Dose: Not Given Documented by: Nystatin (Mycostatin Powder) 1 applic TOPICAL 0600,2200 [facility]; Protocol Last Admin: 08/12/19 06:10 Dose: 1 applicatio Documented by: Ondansetron HCl (Zofran) 4 mg IV Q8H PRN PRN PRN Reason: NAUSEA/VOMITING Oseltamivir Phosphate (Tamiflu) 30 mg PO DAILY [facility] Stop: 08/14/19 10:01 Last Admin: 08/11/19 13:19 Dose: 30 mg Documented by: Oxycodone HCl (Oxyir) 5 mg PO Q4H PRN PRN PRN Reason: Pain Score 4-5/10 Pantoprazole Sodium (Protonix) 40 mg PO DAILY [facility] Last Admin: 08/11/19 13:18 Dose: 40 mg Documented by: Polyethylene Glycol (Miralax) 17 gm PO DAILY [facility] Last Admin: 08/11/19 10:01 Dose: Not Given Documented by: Polysaccharide [facility] ([facility]rex 150) [facility] Admin: 08/11/19 13:18 Dose: 150 mg Documented by: Prochlorperazine Edisylate (Compazine Iv) 5 mg IV Q4H PRN PRN PRN Reason: Breakthrough Nausea/Vomiting Senna/Docusate Sodium (Senokot-S, Rachel-Colace) 1 tablet PO BID [facility] Last Admin: 08/11/19 21:19 Dose: 1 tablet Documented by: Sodium Chloride () 10 - 40 ml IV UD PRN PRN Reason: SALINE FLUSH Last Admin: 08/11/19 15:51 Dose: 10 ml Documented by: Throat Lozenges (Cepacol Sore Throat Lozenge) 1 lozenge MUCOUS MEM Q2H PRN PRN PRN Reason: SORE THROAT Trazodone HCl (Desyrel) 50 mg PO QHS [facility] Last Admin: 08/11/19 21:19 Dose: 50 mg Documented by: STROKE Vital Signs/Narrative: Vital Signs Temp Pulse Resp BP Pulse Ox 08/12/19 06:00 98.4 F 85 19 H 128/52 H 98 08/12/19 05:00 98.2 F 84 19 H 119/54 L 95 08/12/19 04:00 98.2 F 79 17 121/62 H 100 Medical Necessity - Tobacco Use Smoking Status: Never smoker Tobacco Use: Non-smoker Assessment/Plan All Active Problems (Last Reviewed 07/15/19 @ 13:20 by Alessandra Valdivia) Hypoglycemia (Acute) CHF exacerbation (Acute) Pneumonia (Acute) Encephalopathy acute (Acute) Cardiogenic shock (Acute) Bradycardia (Acute) Renal failure (ARF), acute on chronic (Acute) Acute hyperkalemia (Acute) Debility (Acute) Unresponsiveness (Resolved) History of respiratory failure with hypo (Resolved) Anemia (Ruled-out) 1. Acute hypoxic respiratory insufficiency, secondary to #2 and #3 Patient was found to be hypoxic in the ED and improved on 2 L of oxygen. Continue on oxygen, encouraged use of incentive spirometer, breathing treatment 2. Acute on chronic diastolic CHF, patient with recent weight gain, improving, still with significant leg edema On Lasix IV every 8h, continue same as well as with strict input output monitoring per CHF protocol Will consider decreasing Lasix dose probably tomorrow. 3. Probable pneumonia, MRSA PCR negative, repeat CXR(08/11/19) shows persistent right lower lobe infiltrate vs atelectasis No fevers or WBC noted. Urine streptococcal and legionella antigen negative Will continue on Zosyn( day3) for now. 4. Acute influenza A bronchitis, on Tamiflu, will continue same 5. Acute metabolic encephalopathy secondary to hypoglycemia, use of oral hypoglycemics Mentation appears to be fluctuating, will continue to monitor as hypoglycemia is being treated 6. Hypoglycemia, secondary to poor p.o. intake, BS improving in the 100s Will continue to hold Amaryl, continue on blood glucose checks with insulin sliding scale 7. Hypertension/PAF, blood pressure and heart rate controlled, continue on metoprolol and apixaban 8. Anxiety/depression, continue on Remeron and trazodone 9. DVT PPx- On apixaban 10. GI PPx- on PPI Inpatient E&M: [id number] [facility] L2
--- NOTE | 2019-08-12 08:01 | PCM.PN.INT ---
Subjective: Patient did okay overnight. Patient continues to have hypoglycemia requiring D10 drip to maintain normal glycemia. Patient feels subjectively improved compared to yesterday. Patient has been on 2 L nasal cannula this morning and tolerating well. General: Alert, Cooperative, No apparent distress, - - Morbidly obese. HEENT: Atraumatic, PERRLA, EOMI, Normocephalic, - - Slight scleral injection Oral: Moist Mucosa, No Gingival or Mucosal Lesions/ Ulcerations Neck: Supple, No JVD, No Nodes, Trachea Midline Lungs: No rhonchi, No rales, Diminished, Wheezes, - - Symmetric expansion Cardiovascular: Regular rate, Regular Rhythm, Normal S1, Normal S2, Murmur - Grade 2 out of 6 systolic ejection murmur at the left sternal border, No rub noted, No Gallop Abdomen: Bowel Sounds Present, Soft, Non Tender, Non-Distended, Obese Extremities: No clubbing, No cyanosis, Edema - 3+ Skin: No rashes, No breakdown Musculoskeletal: No Tenderness to Palpation of Joints or Extremities Lymphatic: No Cervical, Supraclavicular, or Inguinal Adenopathy Neurological: Cranial nerves II-XII grossly intact, Neuro grossly intact, Motor Exam 5/5 strength throughout Psych/Mental Status: Appropriate, Flat Affect Vital Signs Temp Pulse Resp BP Pulse Ox 36.9 C 85 19 H 128/52 H 98 08/12/19 06:00 08/12/19 06:00 08/12/19 06:00 08/12/19 06:00 08/12/19 06:00 Oxygen Flow Rate (L/min) 2 Oxygen Delivery Method Nasal Cannula Weight: 104.2 kg Body Mass Index (BMI) 43.4 Finger Stick Blood Glucose 62 Intake and Output for Last 24 Hours 08/10/19 08/11/19 08/12/19 23:59 23:59 23:59 Intake Total 165 / 165 2728.830 / 2761.750 614.625 / 614.625 Output Total 100 / 100 1900 / 3000 2200 / 2200 Balance 65 / 65 828.830 / -238.250 -1585.375 / -1585.375 Labs (Last 48 Hours) 08/10/19 08/10/19 08/10/19 18:00 18:00 18:00 WBC 5.0 RBC 3.01 L Hgb 9.2 L Hct 31.6 L MCV 105.0 H MCH 30.6 MCHC 29.1 L RDW Std Deviation 66.8 H RDW Coeff of Alicia 17.2 H Plt Count 242 MPV 10.2 Immature Gran % (Auto) 0.200 Neut % (Auto) 70.6 H Lymph % (Auto) 14.6 L [place] % (Auto) 11.8 H Eos % (Auto) 2.4 Baso % (Auto) 0.4 Absolute Neuts (auto) 3.5 Absolute Lymphs (auto) 0.73 L Nucleated RBC % 0 Differential Comment Platelet Estimate Anisocytosis Macrocytosis Ovalocytes Sodium 141 Potassium 4.3 Chloride 102 Carbon Dioxide 32.0 Anion Gap 7 BUN 36 H Creatinine 1.38 H Estim Creat Clear Calc 28.54 Est GFR (MDRD) Af Amer 47 L Est GFR (MDRD) Non-Af 39 L BUN/Creatinine Ratio 26.1 H Glucose 32 L* Hemoglobin A1c Lactic Acid Calcium 8.4 L Magnesium Total Bilirubin 0.60 Direct Bilirubin 0.24 AST 25 ALT 19 Alkaline Phosphatase 131 H Troponin I 0.042 B-Natriuretic Peptide 742.7 H Total Protein 7.2 Albumin 2.5 L Globulin 4.7 H Albumin/Globulin Ratio TSH Urine Color Urine Clarity Urine pH Ur Specific Manning Urine Protein Urine Glucose (UA) Urine Ketones Urine Occult Blood Urine Nitrite Urine Bilirubin Urine Urobilinogen Ur Leukocyte Esterase Urine RBC Urine WBC Ur Squamous Epith Cells Urine Bacteria Urine Mucus MRSA (PCR) POC Glucose 08/10/19 08/10/19 08/10/19 18:00 18:15 18:41 WBC RBC Hgb Hct MCV MCH MCHC RDW Std Deviation RDW Coeff of Alicia Plt Count MPV Immature Gran % (Auto) Neut % (Auto) Lymph % (Auto) [place] % (Auto) Eos % (Auto) Baso % (Auto) Absolute Neuts (auto) Absolute Lymphs (auto) Nucleated RBC % Differential Comment Platelet Estimate Anisocytosis Macrocytosis Ovalocytes Sodium Potassium Chloride Carbon Dioxide Anion Gap BUN Creatinine Estim Creat Clear Calc Est GFR (MDRD) Af Amer Est GFR (MDRD) Non-Af BUN/Creatinine Ratio Glucose Hemoglobin A1c Lactic Acid Calcium Magnesium 1.3 L Total Bilirubin Direct Bilirubin AST ALT Alkaline Phosphatase Troponin I B-Natriuretic Peptide Total Protein Albumin Globulin Albumin/Globulin Ratio TSH 0.90 Urine Color Urine Clarity Urine pH Ur Specific Manning Urine Protein Urine Glucose (UA) Urine Ketones Urine Occult Blood Urine Nitrite Urine Bilirubin Urine Urobilinogen Ur Leukocyte Esterase Urine RBC Urine WBC Ur Squamous Epith Cells Urine Bacteria Urine Mucus MRSA (PCR) POC Glucose 28 L* 119 H 08/10/19 08/10/19 08/10/19 19:00 19:07 19:48 WBC RBC Hgb Hct MCV MCH MCHC RDW Std Deviation RDW Coeff of Alicia Plt Count MPV Immature Gran % (Auto) Neut % (Auto) Lymph % (Auto) [place] % (Auto) Eos % (Auto) Baso % (Auto) Absolute Neuts (auto) Absolute Lymphs (auto) Nucleated RBC % Differential Comment Platelet Estimate Anisocytosis Macrocytosis Ovalocytes Sodium Potassium Chloride Carbon Dioxide Anion Gap BUN Creatinine Estim Creat Clear Calc Est GFR (MDRD) Af Amer Est GFR (MDRD) Non-Af BUN/Creatinine Ratio Glucose Hemoglobin A1c Lactic Acid Calcium Magnesium Total Bilirubin Direct Bilirubin AST ALT Alkaline Phosphatase Troponin I B-Natriuretic Peptide Total Protein Albumin Globulin Albumin/Globulin Ratio TSH Urine Color Yellow Urine Clarity Clear Urine pH 6.0 Ur Specific Manning 1.015 Urine Protein 15 H Urine Glucose (UA) Normal Urine Ketones Negative Urine Occult Blood Negative Urine Nitrite Negative Urine Bilirubin Negative Urine Urobilinogen Normal Ur Leukocyte Esterase Negative Urine RBC 0 SEEN Urine WBC 0 SEEN Ur Squamous Epith Cells 0 SEEN Urine Bacteria 0 SEEN Urine Mucus 0 SEEN MRSA (PCR) POC Glucose 84 62 L 08/10/19 08/10/19 08/10/19 20:22 22:20 22:20 WBC RBC Hgb Hct MCV MCH MCHC RDW Std Deviation RDW Coeff of Alicia Plt Count MPV Immature Gran % (Auto) Neut % (Auto) Lymph % (Auto) [place] % (Auto) Eos % (Auto) Baso % (Auto) Absolute Neuts (auto) Absolute Lymphs (auto) Nucleated RBC % Differential Comment Platelet Estimate Anisocytosis Macrocytosis Ovalocytes Sodium Potassium Chloride Carbon Dioxide Anion Gap BUN Creatinine Estim Creat Clear Calc Est GFR (MDRD) Af Amer Est GFR (MDRD) Non-Af BUN/Creatinine Ratio Glucose Hemoglobin A1c Lactic Acid 1.6 Calcium Magnesium Total Bilirubin Direct Bilirubin AST ALT Alkaline Phosphatase Troponin I 0.055 H B-Natriuretic Peptide Total Protein Albumin Globulin Albumin/Globulin Ratio TSH Urine Color Urine Clarity Urine pH Ur Specific Manning Urine Protein Urine Glucose (UA) Urine Ketones Urine Occult Blood Urine Nitrite Urine Bilirubin Urine Urobilinogen Ur Leukocyte Esterase Urine RBC Urine WBC Ur Squamous Epith Cells Urine Bacteria Urine Mucus MRSA (PCR) POC Glucose 68 L 08/10/19 08/10/19 08/10/19 22:44 23:00 23:49 WBC RBC Hgb Hct MCV MCH MCHC RDW Std Deviation RDW Coeff of Alicia Plt Count MPV Immature Gran % (Auto) Neut % (Auto) Lymph % (Auto) [place] % (Auto) Eos % (Auto) Baso % (Auto) Absolute Neuts (auto) Absolute Lymphs (auto) Nucleated RBC % Differential Comment Platelet Estimate Anisocytosis Macrocytosis Ovalocytes Sodium Potassium Chloride Carbon Dioxide Anion Gap BUN Creatinine Estim Creat Clear Calc Est GFR (MDRD) Af Amer Est GFR (MDRD) Non-Af BUN/Creatinine Ratio Glucose Hemoglobin A1c Lactic Acid Calcium Magnesium Total Bilirubin Direct Bilirubin AST ALT Alkaline Phosphatase Troponin I B-Natriuretic Peptide Total Protein Albumin Globulin Albumin/Globulin Ratio TSH Urine Color Urine Clarity Urine pH Ur Specific Manning Urine Protein Urine Glucose (UA) Urine Ketones Urine Occult Blood Urine Nitrite Urine Bilirubin Urine Urobilinogen Ur Leukocyte Esterase Urine RBC Urine WBC Ur Squamous Epith Cells Urine Bacteria Urine Mucus MRSA (PCR) Negative POC Glucose 82 84 08/11/19 08/11/19 08/11/19 01:27 01:30 02:51 WBC RBC Hgb Hct MCV MCH MCHC RDW Std Deviation RDW Coeff of Alicia Plt Count MPV Immature Gran % (Auto) Neut % (Auto) Lymph % (Auto) [place] % (Auto) Eos % (Auto) Baso % (Auto) Absolute Neuts (auto) Absolute Lymphs (auto) Nucleated RBC % Differential Comment Platelet Estimate Anisocytosis Macrocytosis Ovalocytes Sodium Potassium Chloride Carbon Dioxide Anion Gap BUN Creatinine Estim Creat Clear Calc Est GFR (MDRD) Af Amer Est GFR (MDRD) Non-Af BUN/Creatinine Ratio Glucose Hemoglobin A1c Lactic Acid Calcium Magnesium Total Bilirubin Direct Bilirubin AST ALT Alkaline Phosphatase Troponin I 0.054 H B-Natriuretic Peptide Total Protein Albumin Globulin Albumin/Globulin Ratio TSH Urine Color Urine Clarity Urine pH Ur Specific Manning Urine Protein Urine Glucose (UA) Urine Ketones Urine Occult Blood Urine Nitrite Urine Bilirubin Urine Urobilinogen Ur Leukocyte Esterase Urine RBC Urine WBC Ur Squamous Epith Cells Urine Bacteria Urine Mucus MRSA (PCR) POC Glucose 57 L 71 08/11/19 08/11/19 08/11/19 03:50 03:55 03:55 WBC 4.4 RBC 2.79 L Hgb 8.4 L Hct 29.8 L MCV 106.8 H MCH 30.1 MCHC 28.2 L RDW Std Deviation 66.6 H RDW Coeff of Alicia 16.7 H Plt Count 178 MPV 9.7 Immature Gran % (Auto) 0.500 Neut % (Auto) 74.1 H Lymph % (Auto) 14.2 L [place] % (Auto) 7.6 Eos % (Auto) 3.4 Baso % (Auto) 0.2 Absolute Neuts (auto) 3.2 Absolute Lymphs (auto) 0.62 L Nucleated RBC % 0 Differential Comment SCANNED Platelet Estimate ADEQUATE Anisocytosis RARE Macrocytosis RARE Ovalocytes RARE Sodium Potassium Chloride Carbon Dioxide Anion Gap BUN Creatinine Estim Creat Clear Calc Est GFR (MDRD) Af Amer Est GFR (MDRD) Non-Af BUN/Creatinine Ratio Glucose Hemoglobin A1c 6.3 Lactic Acid Calcium Magnesium Total Bilirubin Direct Bilirubin AST ALT Alkaline Phosphatase Troponin I B-Natriuretic Peptide Total Protein Albumin Globulin Albumin/Globulin Ratio TSH Urine Color Urine Clarity Urine pH Ur Specific Manning Urine Protein Urine Glucose (UA) Urine Ketones Urine Occult Blood Urine Nitrite Urine Bilirubin Urine Urobilinogen Ur Leukocyte Esterase Urine RBC Urine WBC Ur Squamous Epith Cells Urine Bacteria Urine Mucus MRSA (PCR) POC Glucose 84 08/11/19 08/11/19 08/11/19 03:55 03:55 03:55 WBC RBC Hgb Hct MCV MCH MCHC RDW Std Deviation RDW Coeff of Alicia Plt Count MPV Immature Gran % (Auto) Neut % (Auto) Lymph % (Auto) [place] % (Auto) Eos % (Auto) Baso % (Auto) Absolute Neuts (auto) Absolute Lymphs (auto) Nucleated RBC % Differential Comment Platelet Estimate Anisocytosis Macrocytosis Ovalocytes Sodium 141 Potassium 3.9 Chloride 101 Carbon Dioxide 36.0 H Anion Gap 4 L BUN 34 H Creatinine 1.35 H Estim Creat Clear Calc 25.50 Est GFR (MDRD) Af Amer 49 L Est GFR (MDRD) Non-Af 40 L BUN/Creatinine Ratio 25.2 H Glucose 95 Hemoglobin A1c Lactic Acid Calcium 8.0 L Magnesium 1.4 L Total Bilirubin 0.70 Direct Bilirubin AST 21 ALT 16 Alkaline Phosphatase 121 H Troponin I 0.040 B-Natriuretic Peptide Total Protein 6.5 Albumin 2.3 L Globulin 4.2 Albumin/Globulin Ratio 0.5 L TSH Urine Color Urine Clarity Urine pH Ur Specific Manning Urine Protein Urine Glucose (UA) Urine Ketones Urine Occult Blood Urine Nitrite Urine Bilirubin Urine Urobilinogen Ur Leukocyte Esterase Urine RBC Urine WBC Ur Squamous Epith Cells Urine Bacteria Urine Mucus MRSA (PCR) POC Glucose 08/11/19 08/11/19 08/11/19 06:38 08:30 09:27 WBC RBC Hgb Hct MCV MCH MCHC RDW Std Deviation RDW Coeff of Alicia Plt Count MPV Immature Gran % (Auto) Neut % (Auto) Lymph % (Auto) [place] % (Auto) Eos % (Auto) Baso % (Auto) Absolute Neuts (auto) Absolute Lymphs (auto) Nucleated RBC % Differential Comment Platelet Estimate Anisocytosis Macrocytosis Ovalocytes Sodium Potassium Chloride Carbon Dioxide Anion Gap BUN Creatinine Estim Creat Clear Calc Est GFR (MDRD) Af Amer Est GFR (MDRD) Non-Af BUN/Creatinine Ratio Glucose Hemoglobin A1c Lactic Acid Calcium Magnesium Total Bilirubin Direct Bilirubin AST ALT Alkaline Phosphatase Troponin I B-Natriuretic Peptide Total Protein Albumin Globulin Albumin/Globulin Ratio TSH Urine Color Urine Clarity Urine pH Ur Specific Manning Urine Protein Urine Glucose (UA) Urine Ketones Urine Occult Blood Urine Nitrite Urine Bilirubin Urine Urobilinogen Ur Leukocyte Esterase Urine RBC Urine WBC Ur Squamous Epith Cells Urine Bacteria Urine Mucus MRSA (PCR) POC Glucose 61 L 68 L 82 08/11/19 08/11/19 08/11/19 10:38 11:47 14:23 WBC RBC Hgb Hct MCV MCH MCHC RDW Std Deviation RDW Coeff of Alicia Plt Count MPV Immature Gran % (Auto) Neut % (Auto) Lymph % (Auto) [place] % (Auto) Eos % (Auto) Baso % (Auto) Absolute Neuts (auto) Absolute Lymphs (auto) Nucleated RBC % Differential Comment Platelet Estimate Anisocytosis Macrocytosis Ovalocytes Sodium Potassium Chloride Carbon Dioxide Anion Gap BUN Creatinine Estim Creat Clear Calc Est GFR (MDRD) Af Amer Est GFR (MDRD) Non-Af BUN/Creatinine Ratio Glucose Hemoglobin A1c Lactic Acid Calcium Magnesium Total Bilirubin Direct Bilirubin AST ALT Alkaline Phosphatase Troponin I B-Natriuretic Peptide Total Protein Albumin Globulin Albumin/Globulin Ratio TSH Urine Color Urine Clarity Urine pH Ur Specific Manning Urine Protein Urine Glucose (UA) Urine Ketones Urine Occult Blood Urine Nitrite Urine Bilirubin Urine Urobilinogen Ur Leukocyte Esterase Urine RBC Urine WBC Ur Squamous Epith Cells Urine Bacteria Urine Mucus MRSA (PCR) POC Glucose 87 85 78 08/11/19 08/11/19 08/11/19 16:27 17:37 19:02 WBC RBC Hgb Hct MCV MCH MCHC RDW Std Deviation RDW Coeff of Alicia Plt Count MPV Immature Gran % (Auto) Neut % (Auto) Lymph % (Auto) [place] % (Auto) Eos % (Auto) Baso % (Auto) Absolute Neuts (auto) Absolute Lymphs (auto) Nucleated RBC % Differential Comment Platelet Estimate Anisocytosis Macrocytosis Ovalocytes Sodium Potassium Chloride Carbon Dioxide Anion Gap BUN Creatinine Estim Creat Clear Calc Est GFR (MDRD) Af Amer Est GFR (MDRD) Non-Af BUN/Creatinine Ratio Glucose Hemoglobin A1c Lactic Acid Calcium Magnesium Total Bilirubin Direct Bilirubin AST ALT Alkaline Phosphatase Troponin I B-Natriuretic Peptide Total Protein Albumin Globulin Albumin/Globulin Ratio TSH Urine Color Urine Clarity Urine pH Ur Specific Manning Urine Protein Urine Glucose (UA) Urine Ketones Urine Occult Blood Urine Nitrite Urine Bilirubin Urine Urobilinogen Ur Leukocyte Esterase Urine RBC Urine WBC Ur Squamous Epith Cells Urine Bacteria Urine Mucus MRSA (PCR) POC Glucose 61 L 72 79 08/11/19 08/11/19 08/11/19 19:58 21:00 21:17 WBC RBC Hgb Hct MCV MCH MCHC RDW Std Deviation RDW Coeff of Alicia Plt Count MPV Immature Gran % (Auto) Neut % (Auto) Lymph % (Auto) [place] % (Auto) Eos % (Auto) Baso % (Auto) Absolute Neuts (auto) Absolute Lymphs (auto) Nucleated RBC % Differential Comment Platelet Estimate Anisocytosis Macrocytosis Ovalocytes Sodium 141 Potassium 4.2 Chloride 102 Carbon Dioxide 36.0 H Anion Gap 3 L BUN 29 H Creatinine 1.22 H Estim Creat Clear Calc 28.22 Est GFR (MDRD) Af Amer 55 L Est GFR (MDRD) Non-Af 45 L BUN/Creatinine Ratio 23.8 H Glucose 88 Hemoglobin A1c Lactic Acid Calcium 8.4 L Magnesium Total Bilirubin Direct Bilirubin AST ALT Alkaline Phosphatase Troponin I B-Natriuretic Peptide Total Protein Albumin Globulin Albumin/Globulin Ratio TSH Urine Color Urine Clarity Urine pH Ur Specific Manning Urine Protein Urine Glucose (UA) Urine Ketones Urine Occult Blood Urine Nitrite Urine Bilirubin Urine Urobilinogen Ur Leukocyte Esterase Urine RBC Urine WBC Ur Squamous Epith Cells Urine Bacteria Urine Mucus MRSA (PCR) POC Glucose 82 83 08/11/19 08/12/19 08/12/19 23:07 00:16 00:56 WBC RBC Hgb Hct MCV MCH MCHC RDW Std Deviation RDW Coeff of Alicia Plt Count MPV Immature Gran % (Auto) Neut % (Auto) Lymph % (Auto) [place] % (Auto) Eos % (Auto) Baso % (Auto) Absolute Neuts (auto) Absolute Lymphs (auto) Nucleated RBC % Differential Comment Platelet Estimate Anisocytosis Macrocytosis Ovalocytes Sodium Potassium Chloride Carbon Dioxide Anion Gap BUN Creatinine Estim Creat Clear Calc Est GFR (MDRD) Af Amer Est GFR (MDRD) Non-Af BUN/Creatinine Ratio Glucose Hemoglobin A1c Lactic Acid Calcium Magnesium Total Bilirubin Direct Bilirubin AST ALT Alkaline Phosphatase Troponin I B-Natriuretic Peptide Total Protein Albumin Globulin Albumin/Globulin Ratio TSH Urine Color Urine Clarity Urine pH Ur Specific Manning Urine Protein Urine Glucose (UA) Urine Ketones Urine Occult Blood Urine Nitrite Urine Bilirubin Urine Urobilinogen Ur Leukocyte Esterase Urine RBC Urine WBC Ur Squamous Epith Cells Urine Bacteria Urine Mucus MRSA (PCR) POC Glucose 102 97 116 H 08/12/19 08/12/19 08/12/19 02:28 03:11 04:16 WBC RBC Hgb Hct MCV MCH MCHC RDW Std Deviation RDW Coeff of Alicia Plt Count MPV Immature Gran % (Auto) Neut % (Auto) Lymph % (Auto) [place] % (Auto) Eos % (Auto) Baso % (Auto) Absolute Neuts (auto) Absolute Lymphs (auto) Nucleated RBC % Differential Comment Platelet Estimate Anisocytosis Macrocytosis Ovalocytes Sodium Potassium Chloride Carbon Dioxide Anion Gap BUN Creatinine Estim Creat Clear Calc Est GFR (MDRD) Af Amer Est GFR (MDRD) Non-Af BUN/Creatinine Ratio Glucose Hemoglobin A1c Lactic Acid Calcium Magnesium Total Bilirubin Direct Bilirubin AST ALT Alkaline Phosphatase Troponin I B-Natriuretic Peptide Total Protein Albumin Globulin Albumin/Globulin Ratio TSH Urine Color Urine Clarity Urine pH Ur Specific Manning Urine Protein Urine Glucose (UA) Urine Ketones Urine Occult Blood Urine Nitrite Urine Bilirubin Urine Urobilinogen Ur Leukocyte Esterase Urine RBC Urine WBC Ur Squamous Epith Cells Urine Bacteria Urine Mucus MRSA (PCR) POC Glucose 105 107 117 H 08/12/19 08/12/19 08/12/19 04:20 04:20 06:07 WBC 5.6 RBC 3.04 L Hgb 9.2 L Hct 31.5 L MCV 103.6 H MCH 30.3 MCHC 29.2 L RDW Std Deviation 64.7 H RDW Coeff of Alicia 16.9 H Plt Count 197 MPV 10.2 Immature Gran % (Auto) 0.200 Neut % (Auto) 68.4 Lymph % (Auto) 16.3 L [place] % (Auto) 10.1 H Eos % (Auto) 4.6 Baso % (Auto) 0.4 Absolute Neuts (auto) 3.9 Absolute Lymphs (auto) 0.92 Nucleated RBC % 0 Differential Comment Platelet Estimate Anisocytosis Macrocytosis Ovalocytes Sodium 137 Potassium 3.8 Chloride 96 L Carbon Dioxide 36.0 H Anion Gap 5 BUN 29 H Creatinine 1.15 H Estim Creat Clear Calc 29.93 Est GFR (MDRD) Af Amer 58 L Est GFR (MDRD) Non-Af 48 L BUN/Creatinine Ratio 25.2 H Glucose 125 H Hemoglobin A1c Lactic Acid Calcium 8.4 L Magnesium 2.4 Total Bilirubin 0.70 Direct Bilirubin AST 20 ALT 15 Alkaline Phosphatase 123 H Troponin I B-Natriuretic Peptide Total Protein 6.5 Albumin 2.2 L Globulin 4.3 H Albumin/Globulin Ratio 0.5 L TSH Urine Color Urine Clarity Urine pH Ur Specific Manning Urine Protein Urine Glucose (UA) Urine Ketones Urine Occult Blood Urine Nitrite Urine Bilirubin Urine Urobilinogen Ur Leukocyte Esterase Urine RBC Urine WBC Ur Squamous Epith Cells Urine Bacteria Urine Mucus MRSA (PCR) POC Glucose 126 H Microbiology 08/10/19 22:45 Mucosa - Nasopharyngeal Respiratory Panel (PCR) - Final Influenza A (Subtype H1) 08/10/19 18:00 Sputum, Expectorated/Coughed Gram Stain - Final 08/10/19 18:00 Sputum, Expectorated/Coughed Respiratory Culture - Preliminary Culture exhibits no growth. 08/10/19 19:00 Urine Catheter - Garcia Streptococcus pneumoniae Antigen (M - Final 08/10/19 19:00 Urine Catheter - Garcia Legionella Antigen - Final Medical Necessity - Tobacco Use Smoking Status: Never smoker Tobacco Use: Non-smoker Assessment/Plan All Active Problems (Last Reviewed 07/15/19 @ 13:20 by Alessandra Valdivia) Hypoglycemia (Acute) CHF exacerbation (Acute) Pneumonia (Acute) Encephalopathy acute (Acute) Cardiogenic shock (Acute) Bradycardia (Acute) Renal failure (ARF), acute on chronic (Acute) Acute hyperkalemia (Acute) Debility (Acute) Unresponsiveness (Resolved) History of respiratory failure with hypo (Resolved) Anemia (Ruled-out) RECOMMENDATIONS: 1. Titrate D10 drip as necessary with frequent glucose checks 2. Agree with diuresis to keep I's and O's at least even while on D10 drip 3. Empiric antibiotics and Tamiflu. Will discontinue vancomycin 4. Wean oxygen as tolerated 5. BiPAP rescue as necessary during the day IMPRESSIONS: 1. Acute hypoxic respiratory failure secondary to acute diastolic CHF exacerbation Care complicated by concomitant hypoglycemia and need for D10 drip. Patient is on diuretic therapy with marginal output considering. Patient does have severe mixed ventilatory defects on recent PFT, which also complicates management. Will do BiPAP rescue as necessary during the day. Patient appears to be volume overloaded and would benefit from diuresis once D10 drip can be discontinued. Complicated by concomitant influenza infection. Patient is on Tamiflu. 2. COPD exacerbation secondary to influenza A Patient does have a protracted hospital course and will be at risk for resistant organisms. Agree with IV Zosyn until further information is available. Discontinue vancomycin given negative MRSA nasal swab. Patient currently hemodynamically stable. Unclear how much of patient's mental status is secondary to hypoglycemia versus severe sepsis. Would hold on fluid boluses given cardiac history and clinically overloaded status. Patient is a full code and can be intubated if necessary. 3. Hypoglycemia Unclear etiology. Patient is currently on a D10 drip. Patient is on Amaryl as an outpatient. We will continue with every other hour blood sugar checks and titrate drip as necessary to keep blood sugars between 80 and 120. 4. Acute metabolic encephalopathy Clinical suspicion for an element of diagnoses 1, 2 and 3 leading to mental status. Patient does appear to be improving with improved glucose, so this may be the main etiology. Would recommend delirium protocol. 5. CKD stage IV/hypertension/hyperlipidemia/anxiety/depression/paroxysmal A. fib/advanced age Complicates care, management, recovery and prognosis. Watch blood pressure closely. We will continue with metoprolol for rate control. Okay with Eliquis therapy at this time, but this may need to be reevaluated if patient's condition starts to deteriorate. Hematuria is minimal at this point. Avoid benzodiazepines if possible. Haldol as necessary for agitation. Inpatient E&M: [id number] Subs Hosp L3
[2019-08-12] MEDS: Pantoprazole Sodium 40 MG Tablet PO (08:03)
[2019-08-12] MEDS: Aspirin 81 MG TAB.CHEW PO (08:03)
[2019-08-12] MEDS: Iron Polysaccharide Complex 150 MG CAPSULE PO (08:03)
[2019-08-12] MEDS: APIXABAN 2.5 MG TABLET PO ×2 (08:03→21:50)
[2019-08-12] MEDS: Oseltamivir Phosphate 30 MG Capsule PO (08:03)
[2019-08-12] MEDS: Senna/Docusate Sodium 1 Tablet PO (08:04)
[2019-08-12] MEDS: Metoprolol Tartrate 25 MG Tablet PO ×2 (08:04→21:51)
[2019-08-12 08:15] LABS: Bedside Glucose 137 mg/dL (70-110)
[2019-08-12 10:30] LABS: Bedside Glucose 142 mg/dL (70-110)
[2019-08-12] MEDS: Acetaminophen 325 MG Tablet 650 MG PO (12:01)
[2019-08-12] MEDS: Glucerna Shake 120 ML LIQUID PO ×3 (12:02→21:49)
[2019-08-12] MEDS: 0.9% Saline Lock 10 ML Syringe IV (12:02)
[2019-08-12 12:15] LABS: Bedside Glucose 148 mg/dL (70-110)
--- NOTE | 2019-08-12 13:20 | PN.CARD_ITS ---
Subjectve: Patient seen and examined with patient's daughter at the bedside.Currently normal sinus rhythm, telemetry shows normal sinus rhythm with rare PVCs.On no pressor agents at this time.Patient somnolent but awakens easily Objective: Vital Signs Temp Pulse Resp BP Pulse Ox 98.8 F 83 18 103/48 L 99 08/12/19 12:00 08/12/19 12:00 08/12/19 12:00 08/12/19 12:00 08/12/19 12:00 Oxygen Flow Rate (L/min) 2 Oxygen Delivery Method Nasal Cannula Weight: 229 lb 11.547 oz Body Mass Index (BMI) 43.4 Finger Stick Blood Glucose 62 Intake and Output for Last 24 Hours 08/10/19 08/11/19 08/12/19 23:59 23:59 23:59 Intake Total 165 / 165 2728.830 / 2761.750 1197.950 / 1197.950 Output Total 100 / 100 1900 / 3000 3150 / 3150 Balance 65 / 65 828.830 / -238.250 -1952.050 / -1952.050 General: Awake, Alert, Oriented x 3 HEENT: PERRL, EOMI, Sclera Non Icteric Neck: Supple, Good ROM, No Lymph Node Enlargement Lungs: Clear to auscultation Cardiovascular: Regular Rhythm, Normal S2, No Rubs, No Gallops Murmur Murmur: Grade 2/6, Holosystolic Vascular: No Carotid Bruits, Normal Femoral Pulses, Normal Radial Pulses, Normal Dorsalis Pedal Pulse, Normal Posterior Tibial Pulses Abdomen: Bowel Sounds Present, Soft, Non Tender, No HSM, No Organomegaly Extremities: No Cyanosis, No Clubbing, No edema Neurological: No Focal Motor or Sensory Deficit 08/11/19 21:00: Sodium 141, Potassium 4.2, Chloride 102, Carbon Dioxide 36.0 H, Anion Gap 3 L, BUN 29 H, Creatinine 1.22 H, Est GFR (MDRD) Af Amer 55 L, Est GFR (MDRD) Non-Af 45 L, BUN/Creatinine Ratio 23.8 H, Glucose 88, Calcium 8.4 L 08/12/19 04:20: WBC 5.6, RBC 3.04 L, Hgb 9.2 L, Hct 31.5 L, MCV 103.6 H, MCH 30.3, MCHC 29.2 L, Plt Count 197, MPV 10.2, Immature Gran % (Auto) 0.200, Neut % (Auto) 68.4, Lymph % (Auto) 16.3 L, Callahan % (Auto) 10.1 H, Eos % (Auto) 4.6, Baso % (Auto) 0.4, Absolute Neuts (auto) 3.9, Nucleated RBC % 0 08/12/19 04:20: Sodium 137, Potassium 3.8, Chloride 96 L, Carbon Dioxide 36.0 H, Anion Gap 5, BUN 29 H, Creatinine 1.15 H, Est GFR (MDRD) Af Amer 58 L, Est GFR (MDRD) Non-Af 48 L, BUN/Creatinine Ratio 25.2 H, Glucose 125 H, Calcium 8.4 L, Magnesium 2.4, Total Bilirubin 0.70 Rhythm: EKG: ECHO: Mild concentric left ventricular hypertrophy. The estimated ejection fraction is 65 %. Stage 2 diastolic dysfunction. Severely dilated right ventricle. Moderate segmental dysfunction of right ventricle. Moderately severe (3+) tricuspid valve insufficiency. Right ventricular systolic pressure estimated to be 60 mmHg. Small left pleural effusion. There is no comparison study available. Stress Test: Cardiac Cath: PCI: CT Surgery: Holter monitor: EPS: PPM: CXR:Right pleural effusion. Chest CT Scan: Medical Necessity - Tobacco Use Smoking Status: Never smoker Tobacco Use: Non-smoker Assessment/Plan 1. Influenza pneumonia: Patient has evidence on chest x-ray of right pleural effusion, and presented with lethargy, fatigue, hypotension, and hypoglycemia. She has been successfully weaned off of D10, and is now on D5 IV fluids. Her p.o. intake is marginal at best, and will be slowly advanced. Her most recent echocardiogramFrom 07/24/2019 is as follows: Mild concentric left ventricular hypertrophy. The estimated ejection fraction is 65 %. Stage 2 diastolic dysfunction. Severely dilated right ventricle. Moderate segmental dysfunction of right ventricle. Moderately severe (3+) tricuspid valve insufficiency. Right ventricular systolic pressure estimated to be 60 mmHg. Small left pleural effusion. There is no comparison study available. I do not believe she requires repeat echocardiogram although she does have at least moderate pulmonary hypertension indicating that she is most likely preload dependent. I recommended fairly aggressive IV fluid resuscitation to assist with her blood pressure control. At this point will do supportive care and would not recommend any additional testing. We may want to consider therapeutic thoracentesis if it appears her right pleural effusion is worsening. We are also be concerned about developing an empyema as well. Primary service may want to consider holding her Eliquis if any therapeutic thoracentesis may be necessary in the next few days. 2. Thank you very much for the opportunity to participate in the cardiac care of your patient. This note was generated using a voice recognition system and there may be incorrect words, spelling or punctuation that were not noted when reviewing the office note prior to saving. Inpatient E&M: 53634 Subs Hosp L2
--- NOTE | 2019-08-12 14:01 | CASEMGMT ---
Patient has a Healthcare Power of Manager Project and a Healthcare Living Will on file at [facility]. Kasey MERCEDES MSW
--- NOTE | 2019-08-12 15:29 | CASEMGMT ---
Per RN CM patient's daughter asked that a referral be faxed to [facility]. SW faxed referral to [facility] and also called regarding referral. Kasey MERCEDES MSW
[2019-08-12 16:36] LABS: Bedside Glucose 154 mg/dL (70-110)
--- NOTE | 2019-08-12 21:20 | NURSING ---
Garcia cath removed d/t pt's persistent pulling and scratching at vulva area. 2 small bleeding lacerations found on rt labia majora;areas cleaned well and coated w/calmoseptine ointment. Pt radha all well.
[2019-08-12] MEDS: traZODone 50 MG Tablet PO (21:50)
[2019-08-12] MEDS: Furosemide 40 MG/4 ML Vial IV (21:50)
[2019-08-12] MEDS: Atorvastatin Calcium 20 MG Tablet PO (21:50)
[2019-08-12] MEDS: Mirtazapine 15 MG Tablet 7.5 MG PO (21:50)
[2019-08-12] MEDS: oxyCODONE 5 MG Tablet PO (21:51)
[2019-08-12 22:16] LABS: Bedside Glucose 149 mg/dL (70-110)
--- NOTE | 2019-08-12 23:02 | CPS ---
pt kept pulling at mask-did not tolarate bipap mask-was successful in pulling mask off after 25 min-pt placed back on 2 l/m 96% nurse aware
[2019-08-13] VITALS (30 sets, daily range): BP systolic 92–153; BP diastolic 39–92; PULSE 70–105; RESP 12–27; TEMP 36.6–37.2; O2SAT 92–100
[2019-08-13] MEDS: Nystatin Powder 15gm Bottle 1 APPLIC TOPICAL ×2 (05:27→21:13)
[2019-08-13] MEDS: Menthol/Lanolin/Calamine/Znox 113 GM Tube 1 APPLIC TOPICAL ×2 (05:28→21:15)
[2019-08-13] MEDS: Lactated Ringers 500 ML 999 ML IV (06:45)
[2019-08-13] MEDS: Ipratropium/Albuterol Sulfate 3 ML AMPUL.NEB INHALATION ×4 (07:26→18:59)
--- NOTE | 2019-08-13 08:03 | PCM.PN.HOSP ---
Patient Problems: Active and Suspected Problems (Last Reviewed 07/15/19 @ 13:20 by Alessandra Valdivia) Hypoglycemia (Acute) CHF exacerbation (Acute) Pneumonia (Acute) Encephalopathy acute (Acute) Reason for Visit: Follow-up on acute hypoxic respiratory insufficiency/acute influenza A/acute on chronic diastolic CHF/acute metabolic encephalopathy/hypoglycemia Subjective: Patient was seen and examined. Appears improved, sleeping, had some hypotension with significant diuresis overnight. Started on some IV fluids this morning. Blood sugars appear better. Objective: Physical exam: General: Alert, Cooperative, Confused, Lethargic, - - On 2 L of oxygen, appears frail HEENT: Atraumatic, PERRLA, EOMI, Normocephalic Oral: Dry Mucosa Neck: Supple Lungs: Diminished Cardiovascular: Regular rate, Regular Rhythm, Normal S1, Normal S2, No murmurs Abdomen: Bowel Sounds Present, Soft, Non Tender, Non-Distended, No Hepato-splenomegaly Extremities: Edema - +2-3edema, PATRICK wraps to both legs Skin: No rashes Musculoskeletal: No Tenderness to Palpation of Joints or Extremities Lymphatic: No Cervical, Supraclavicular, or Inguinal Adenopathy Neurological: Cranial nerves II-XII grossly intact, Neuro grossly intact Psych/Mental Status: Normal Affect, Appropriate Vitals/I&O's: Vital Signs Temp Pulse Resp BP Pulse Ox 98 F 83 15 99/46 L 97 08/13/19 04:00 08/13/19 07:26 08/13/19 07:26 08/13/19 06:00 08/13/19 07:26 Oxygen Flow Rate (L/min) 1 Oxygen Delivery Method Nasal Cannula Weight: 104.2 kg Body Mass Index (BMI) 43.4 Finger Stick Blood Glucose 62 Intake and Output for Last 24 Hours 08/11/19 08/12/19 08/13/19 23:59 23:59 23:59 Intake Total 2728.830 / 2761.750 1252.950 / 1372.950 670 / 670 Output Total 1900 / 3000 3450 / 4150 1000 / 1000 Balance 828.830 / -238.250 -2197.050 / -2777.050 -330 / -330 Microbiology Past 72 Hours 08/10/19 18:00 Sputum, Expectorated/Coughed Gram Stain - Final 08/10/19 18:00 Sputum, Expectorated/Coughed Respiratory Culture - Preliminary Presumptive C albicans 08/10/19 22:45 Mucosa - Nasopharyngeal Respiratory Panel (PCR) - Final Influenza A (Subtype H1) 08/10/19 19:00 Urine Catheter - Garcia Streptococcus pneumoniae Antigen (M - Final 08/10/19 19:00 Urine Catheter - Garcia Legionella Antigen - Final Laboratory Results 08/12/19 08:02: POC Glucose 137 H 08/12/19 10:21: POC Glucose 142 H 08/12/19 11:58: POC Glucose 148 H 08/12/19 16:29: POC Glucose 154 H 08/12/19 21:59: POC Glucose 149 H Current Medications Acetaminophen (Tylenol) 650 mg PO Q6H PRN PRN PRN Reason: Pain Score 1-10/Temp > 100.7 F Last Admin: 08/12/19 12:01 Dose: 650 mg Documented by: Al Hydroxide/Mg Hydroxide (Mylanta Ii) 30 ml PO Q6H PRN PRN PRN Reason: Gastric Burning Albuterol/Ipratropium (Duoneb) 3 ml INHALATION Q4HWA.RT [facility] Last Admin: 08/13/19 07:26 Dose: 3 ml Documented by: Apixaban (Eliquis) 2.5 mg PO BID [facility] Last Admin: 08/12/19 21:50 Dose: 2.5 mg Documented by: Aspirin (Aspirin, Baby) 81 mg PO DAILY@0800 [facility] Last Admin: 08/12/19 08:03 Dose: 81 mg Documented by: Atorvastatin Calcium (Lipitor) 20 mg PO QHS [facility] Last Admin: 08/12/19 21:50 Dose: 20 mg Documented by: Bacitracin/Polymyxin B Sulfate (Polysporin Ointment) 1 applic TOPICAL BID [facility]; Protocol Calamine/Phenol (Calmoseptine Ointment) 1 applic TOPICAL 0600,2200 [facility]; Protocol Last Admin: 08/13/19 05:28 Dose: 1 applicatio Documented by: Cholecalciferol (Vitamin D (25mcg)) 1,000 unit PO DAILY [facility] Last Admin: 08/12/19 08:04 Dose: 1,000 unit Documented by: Furosemide (Lasix) 40 mg IV BID@1000,1800 [facility] Last Admin: 08/13/19 07:19 Dose: Not Given Documented by: Glucagon () 1 mg IM .X1 PRN PRN Reason: Hypoglycemia Guaifenesin (Robitussin) 20 ml PO Q4H PRN PRN PRN Reason: COUGH Piperacillin Sod/Tazobactam (Sod 3.375 gm/ Sodium Chloride) 50 mls @ 12.5 mls/hr IV Q8 [facility] Last Admin: 08/13/19 05:27 Dose: 12.5 mls/hr Documented by: Dextrose (Dextrose 10%-Water) 250 mls @ 999 mls/hr IV .Q16M PRN; Protocol PRN Reason: HYPOGLYCEMIA Last Infusion: 08/11/19 01:52 Dose: Infused Documented by: Sodium Chloride () 250 mls @ 15 mls/hr IV .[id number] PRN PRN Reason: Saline Flush Sodium Chloride () 250 mls @ 15 mls/hr IV .[id number] PRN PRN Reason: Additional IVPB Infusion Metoprolol Tartrate (Lopressor (Beta Lucina)) 25 mg PO BID [facility] Last Admin: 08/12/19 21:51 Dose: 25 mg Documented by: Mirtazapine (Remeron) 7.5 mg PO QHS [facility] Last Admin: 08/12/19 21:50 Dose: 7.5 mg Documented by: Morphine Sulfate () 2 mg IV Q3H PRN PRN PRN Reason: Pain Score 6-10/10 Multi-Ingredient Cream (Eucerin) 1 applic TOPICAL 2200 [facility]; Protocol Last Admin: 08/12/19 21:52 Dose: 1 applicatio Documented by: Nitroglycerin (Nitrostat) 0.4 mg SUBLINGUAL Q5M PRN PRN Reason: CARDIAC/CHEST PAIN Nutritional Formula (Lactose Free) (Glucerna Shake) 120 ml PO 4X/DAY [facility] Last Admin: 08/12/19 21:49 Dose: 120 ml Documented by: Nystatin (Mycostatin Powder) 1 applic TOPICAL 0600,2200 [facility]; Protocol Last Admin: 08/13/19 05:27 Dose: 1 applicatio Documented by: Ondansetron HCl (Zofran) 4 mg IV Q8H PRN PRN PRN Reason: NAUSEA/VOMITING Oseltamivir Phosphate (Tamiflu) 30 mg PO DAILY [facility] Stop: 08/14/19 10:01 Last Admin: 08/12/19 08:03 Dose: 30 mg Documented by: Oxycodone HCl (Oxyir) 5 mg PO Q4H PRN PRN PRN Reason: Pain Score 4-5/10 Last Admin: 08/12/19 21:51 Dose: 5 mg Documented by: Pantoprazole Sodium (Protonix) 40 mg PO DAILY [facility] Last Admin: 08/12/19 08:03 Dose: 40 mg Documented by: Polyethylene Glycol (Miralax) 17 gm PO DAILY [facility] Last Admin: 08/12/19 08:04 Dose: Not Given Documented by: Polysaccharide Iron [facility] ([facility]rex 150) [facility] Last Admin: 08/12/19 08:03 Dose: 150 mg Documented by: Prochlorperazine Edisylate (Compazine Iv) 5 mg IV Q4H PRN PRN PRN Reason: Breakthrough Nausea/Vomiting Senna/Docusate Sodium (Senokot-S, Rachel-Colace) 1 tablet PO BID [facility] Last Admin: 08/12/19 21:53 Dose: Not Given Documented by: Sodium Chloride () 10 - 40 ml IV UD PRN PRN Reason: SALINE FLUSH Last Admin: 08/12/19 12:02 Dose: 10 ml Documented by: Throat Lozenges (Cepacol Sore Throat Lozenge) 1 lozenge MUCOUS MEM Q2H PRN PRN PRN Reason: SORE THROAT Trazodone HCl (Desyrel) 50 mg PO QHS [facility] Last Admin: 08/12/19 21:50 Dose: 50 mg Documented by: STROKE Vital Signs/Narrative: Vital Signs Pulse Resp BP Pulse Ox 08/13/19 07:26 83 15 97 08/13/19 06:00 75 12 99/46 L 100 08/13/19 05:00 72 15 92/54 L 100 Medical Necessity - Tobacco Use Smoking Status: Never smoker Tobacco Use: Non-smoker Assessment/Plan All Active Problems (Last Reviewed 07/15/19 @ 13:20 by Alessandra Valdivia) Hypoglycemia (Acute) CHF exacerbation (Acute) Pneumonia (Acute) Encephalopathy acute (Acute) Cardiogenic shock (Acute) Bradycardia (Acute) Renal failure (ARF), acute on chronic (Acute) Acute hyperkalemia (Acute) Debility (Acute) Unresponsiveness (Resolved) History of respiratory failure with hypo (Resolved) Anemia (Ruled-out) 1. Episode of hypotension, responsive to fluids, continue to monitor 2. Acute hypoxic respiratory insufficiency, secondary to #2 and #3 Appears to be stable, continue on oxygen, encouraged use of incentive spirometer, breathing treatments 2. Acute on chronic diastolic CHF, patient with recent weight gain, improving, Diuresed a lot, edema appears improved, Patrick wraps present Lasix changed to 40 mg daily, continue with strict input output monitoring per CHF protocol 3. Probable pneumonia, MRSA PCR negative, repeat CXR(08/11/19) shows persistent right lower lobe infiltrate vs atelectasis No fevers or WBC noted. Urine streptococcal and legionella antigen negative Will continue on Zosyn( day4) for now. 4. Acute influenza A bronchitis, on Tamiflu, will continue same 5. Acute metabolic encephalopathy secondary to hypoglycemia, use of oral hypoglycemics Mentation appears to be improving, Will continue to monitor as hypoglycemia is being treated 6. Hypoglycemia, secondary to poor p.o. intake, Blood sugars are much better Will continue to hold Amaryl, continue on blood glucose checks with insulin sliding scale 7. Hypertension/PAF, blood pressure and heart rate controlled, continue on metoprolol and apixaban 8. Anxiety/depression, continue on Remeron and trazodone 9. DVT PPx- On apixaban 10. GI PPx- on PPI Inpatient E&M: 49108 [facility] Hosp L2
--- NOTE | 2019-08-13 09:01 | PCM.PN.CARD ---
Subjectve: Patient seen and examined in conjunction with Dr. Castro. Overnight the patient had significant diuresis with IV Lasix drip. Blood pressure is slightly lower today. Telemetry showed normal sinus rhythm with rare PVCs. Patient is somnolent, but does respond to questions. Hemodynamically stable. Sugars have improved and stabilized overnight. Objective: Vital Signs Temp Pulse Resp BP Pulse Ox 98 F 83 21 H 137/55 H 98 08/13/19 04:00 08/13/19 08:00 08/13/19 08:00 08/13/19 08:00 08/13/19 08:00 Oxygen Flow Rate (L/min) 2 Oxygen Delivery Method Nasal Cannula Weight: 229 lb 11.547 oz Body Mass Index (BMI) 43.4 Finger Stick Blood Glucose 62 Intake and Output for Last 24 Hours 08/11/19 08/12/19 08/13/19 23:59 23:59 23:59 Intake Total 2728.830 / 2761.750 1252.950 / 1372.950 670 / 670 Output Total 1900 / 3000 3450 / 4150 1000 / 1000 Balance 828.830 / -238.250 -2197.050 / -2777.050 -330 / -330 General: Awake, Alert, Oriented x 3 HEENT: PERRL, EOMI, Sclera Non Icteric Neck: Supple, Good ROM, No Lymph Node Enlargement Lungs: Clear to auscultation Cardiovascular: Regular Rhythm, Normal S2, No Rubs, No Gallops Murmur Murmur: Grade 2/6, Holosystolic Vascular: No Carotid Bruits, Normal Femoral Pulses, Normal Radial Pulses, Normal Dorsalis Pedal Pulse, Normal Posterior Tibial Pulses Abdomen: Bowel Sounds Present, Soft, Non Tender, No HSM, No Organomegaly Extremities: No Cyanosis, No Clubbing, No edema Neurological: No Focal Motor or Sensory Deficit Rhythm: EKG: ECHO: Stress Test: Cardiac Cath: PCI: CT Surgery: Holter monitor: EPS: PPM: CXR: Chest CT Scan: Medical Necessity - Tobacco Use Smoking Status: Never smoker Tobacco Use: Non-smoker Assessment/Plan 1. Influenza pneumonia: Patient has evidence on chest x-ray of right pleural effusion, and presented with lethargy, fatigue, hypotension, and hypoglycemia. She has been successfully weaned off of D10, and is now on D5 IV fluids. Her p.o. intake is marginal at best, and will be slowly advanced. Her most recent echocardiogramFrom 07/24/2019 is as follows: Mild concentric left ventricular hypertrophy. The estimated ejection fraction is 65 %. Stage 2 diastolic dysfunction. Severely dilated right ventricle. Moderate segmental dysfunction of right ventricle. Moderately severe (3+) tricuspid valve insufficiency. Right ventricular systolic pressure estimated to be 60 mmHg. Small left pleural effusion. There is no comparison study available. I do not believe she requires repeat echocardiogram although she does have at least moderate pulmonary hypertension indicating that she is most likely preload dependent. I recommended fairly aggressive IV fluid resuscitation to assist with her blood pressure control. At this point will do supportive care and would not recommend any additional testing. Would recommend managing her eyes and nose with IV diuretic therapy. Would recommend reducing her IV therapy to 40 mg Lasix daily. Patient is laying down flat with normal respiratory rate, and good oxygenation on 2 L nasal cannula. Does not appear the patient requires thoracentesis at this time. 2. Thank you very much for the opportunity to participate in the cardiac care of your patient. Discussed with Dr. Johnson. This note was generated using a voice recognition system and there may be incorrect words, spelling or punctuation that were not noted when reviewing the office note prior to saving. Inpatient E&M: 53477 Subs Hosp L2
[2019-08-13] MEDS: Aspirin 81 MG TAB.CHEW PO ×2 (09:18)
[2019-08-13] MEDS: Metoprolol Tartrate 25 MG Tablet PO ×2 (09:18→21:17)
[2019-08-13] MEDS: Pantoprazole Sodium 40 MG Tablet PO (09:18)
[2019-08-13] MEDS: Iron Polysaccharide Complex 150 MG CAPSULE PO (09:20)
[2019-08-13] MEDS: Glucerna Shake 120 ML LIQUID PO ×4 (09:20→21:18)
[2019-08-13 09:21] LABS: Absolute Lymphocyte Count 0.81 X10^3/uL (0.83-4.51); Absolute Neutrophil Count 4.6 X10^3/uL (2.0-7.7); Basophil# 0.02 X10^3/uL; Basophil% 0.3 % (0-1); Eosinophil# 0.22 X10^3/uL; Eosinophils% 3.6 % (0-5); Hematocrit 29.2 % (37-47); Hemoglobin 8.6 g/dL (12.0-15.0); Lymphocyte # 0.81 X10^3/ul (4.0); Lymphocyte % 13.2 % (19-41); Mean Corp Hgb Conc 29.5 g/dL (32-36); Mean Corpuscular Volume 101.7 fL (81-99); Mean Platelet Vol. 9.9 fl (6.2-12.0); Monocyte# 0.51 X10^3/uL; Monocyte% 8.3 % (0-10); NRBC Flagged by Analyzer 0 % (0-5); Neutrophil # 4.56 X10^3/uL (2.7-7.7); Neutrophil % 74.4 % (47-70); Platelet Count 164 K/mm3 (150-450); RBC Distribution Width CV 16.9 % (11.6-14.6); RBC Distribution Width SD 64.1 fl (35.1-43.9); Red Blood Count 2.87 M/mm3 (4.2-5.4); White Blood Count 6.1 K/mm3 (4.4-11.0)
[2019-08-13] MEDS: Polyethylene Glycol 3350 17 GM PACKET PO (09:21)
[2019-08-13] MEDS: BACITRACIN/POLYMYXIN B 15 GM Tube 1 APPLIC TOPICAL ×2 (09:21→21:16)
--- NOTE | 2019-08-13 10:06 | CASEMGMT ---
SW spoke w/Lorraine at [facility], they can take pt. Lorraine reminded SW that when pt gets there she will be in her room for 14 days, and there will be no visitation. They will help with Skype/Facetime calls, and pt will be in an outside wall room so family can visit through the window. SW called daughter Iman Amaral who is POA. SW explained that [facility] can take pt when ready, explained also that pt will be in room for 14 days and no visitation allowed. SW also explained that staff there will help w/Skype or Facetime calls and that pt will be in an outside room so family can visit at the window. Daughter states understanding, did talk about getting aide services at home through insurance and having pt come home. SW explained that Medicare is limited in what they cover, generally it's 2-3 hours/week for personal care. SW explained daughter is welcome to call pt's secondary insurance, and third insurance to see if there is any coverage for aides for ADL's, however SW did explain that secondary insurance does usually follow the Medicare guidelines. Daughter states understanding. As of now, daughter will continue to plan for pt to go to [facility], however if something else can be worked out while pt is here they would take pt home. Daughter states pt came home on from [facility] and it took her and her two daughters to help pt, and they were barely able to manage pt's care. Plan for now is [facility], SW will continue to follow and will likely work on setting up discharge to [facility] when pt is ready, after checking w/daughter that no other arrangements were made. ERIC Elkins
--- NOTE | 2019-08-13 10:12 | PCM.PN.INT ---
Subjective: Patient did okay overnight. Patient did have significant diuresis over the last 24 hours and had some hypotension this morning. Patient was given 500 cc of LR by myself and had improvement in blood pressure. Blood sugars have stabilized and D10 drip was able to be dropped yesterday. Oxygenation has been doing well. Patient continues to have intermittent confusion. Patient did have a pure wick placed overnight. Nursing had reported significant excoriations and open wounds of the labia General: Alert, Cooperative, No apparent distress, - - Morbidly obese. HEENT: Atraumatic, PERRLA, EOMI, Normocephalic, - - No scleral icterus or injection noted Oral: Moist Mucosa, No Gingival or Mucosal Lesions/ Ulcerations Neck: Supple, No JVD, No Nodes, Trachea Midline Lungs: No rhonchi, No wheeze, No rales, Diminished, - - Symmetric expansion. Cardiovascular: Regular rate, Regular Rhythm, Normal S1, Normal S2, Murmur - Grade 2 out of 6 systolic ejection murmur at the right sternal border, No rub noted, No Gallop Abdomen: Bowel Sounds Present, Soft, Non Tender, Non-Distended, Obese Extremities: No cyanosis, Capillary Refill Less than 3 Seconds, Edema Skin: - - Excoriations of labia Musculoskeletal: No Tenderness to Palpation of Joints or Extremities Lymphatic: No Cervical, Supraclavicular, or Inguinal Adenopathy Neurological: Cranial nerves II-XII grossly intact, Neuro grossly intact, Motor Exam 5/5 strength throughout Psych/Mental Status: Flat Affect Vital Signs Temp Pulse Resp BP Pulse Ox 36.6 C 83 21 H 137/55 H 98 08/13/19 04:00 08/13/19 09:18 08/13/19 08:00 08/13/19 09:18 08/13/19 08:00 Oxygen Flow Rate (L/min) 2 Oxygen Delivery Method Nasal Cannula Weight: 104.2 kg Body Mass Index (BMI) 43.4 Finger Stick Blood Glucose 62 Intake and Output for Last 24 Hours 08/11/19 08/12/19 08/13/19 23:59 23:59 23:59 Intake Total 2728.830 / 2761.750 1252.950 / 1372.950 670 / 670 Output Total 1900 / 3000 3450 / 4150 1000 / 1000 Balance 828.830 / -238.250 -2197.050 / -2777.050 -330 / -330 Labs (Last 48 Hours) 08/11/19 08/11/19 08/11/19 10:38 11:47 14:23 WBC RBC Hgb Hct MCV MCH MCHC RDW Std Deviation RDW Coeff of Alicia Plt Count MPV Immature Gran % (Auto) Neut % (Auto) Lymph % (Auto) Rin[place] % (Auto) Eos % (Auto) Baso % (Auto) Absolute Neuts (auto) Absolute Lymphs (auto) Nucleated RBC % Sodium Potassium Chloride Carbon Dioxide Anion Gap BUN Creatinine Estim Creat Clear Calc Est GFR (MDRD) Af Amer Est GFR (MDRD) Non-Af BUN/Creatinine Ratio Glucose Calcium Magnesium Total Bilirubin AST ALT Alkaline Phosphatase Total Protein Albumin Globulin Albumin/Globulin Ratio POC Glucose 87 85 78 08/11/19 08/11/19 08/11/19 16:27 17:37 19:02 WBC RBC Hgb Hct MCV MCH MCHC RDW Std Deviation RDW Coeff of Alicia Plt Count MPV Immature Gran % (Auto) Neut % (Auto) Lymph % (Auto) Rin[place] % (Auto) Eos % (Auto) Baso % (Auto) Absolute Neuts (auto) Absolute Lymphs (auto) Nucleated RBC % Sodium Potassium Chloride Carbon Dioxide Anion Gap BUN Creatinine Estim Creat Clear Calc Est GFR (MDRD) Af Amer Est GFR (MDRD) Non-Af BUN/Creatinine Ratio Glucose Calcium Magnesium Total Bilirubin AST ALT Alkaline Phosphatase Total Protein Albumin Globulin Albumin/Globulin Ratio POC Glucose 61 L 72 79 08/11/19 08/11/19 08/11/19 19:58 21:00 21:17 WBC RBC Hgb Hct MCV MCH MCHC RDW Std Deviation RDW Coeff of Alicia Plt Count MPV Immature Gran % (Auto) Neut % (Auto) Lymph % (Auto) Rincon % (Auto) Eos % (Auto) Baso % (Auto) Absolute Neuts (auto) Absolute Lymphs (auto) Nucleated RBC % Sodium 141 Potassium 4.2 Chloride 102 Carbon Dioxide 36.0 H Anion Gap 3 L BUN 29 H Creatinine 1.22 H Estim Creat Clear Calc 28.22 Est GFR (MDRD) Af Amer 55 L Est GFR (MDRD) Non-Af 45 L BUN/Creatinine Ratio 23.8 H Glucose 88 Calcium 8.4 L Magnesium Total Bilirubin AST ALT Alkaline Phosphatase Total Protein Albumin Globulin Albumin/Globulin Ratio POC Glucose 82 83 08/11/19 08/12/19 08/12/19 23:07 00:16 00:56 WBC RBC Hgb Hct MCV MCH MCHC RDW Std Deviation RDW Coeff of Alicia Plt Count MPV Immature Gran % (Auto) Neut % (Auto) Lymph % (Auto) Rin[place] % (Auto) Eos % (Auto) Baso % (Auto) Absolute Neuts (auto) Absolute Lymphs (auto) Nucleated RBC % Sodium Potassium Chloride Carbon Dioxide Anion Gap BUN Creatinine Estim Creat Clear Calc Est GFR (MDRD) Af Amer Est GFR (MDRD) Non-Af BUN/Creatinine Ratio Glucose Calcium Magnesium Total Bilirubin AST ALT Alkaline Phosphatase Total Protein Albumin Globulin Albumin/Globulin Ratio POC Glucose 102 97 116 H 08/12/19 08/12/19 08/12/19 02:28 03:11 04:16 WBC RBC Hgb Hct MCV MCH MCHC RDW Std Deviation RDW Coeff of Alicia Plt Count MPV Immature Gran % (Auto) Neut % (Auto) Lymph % (Auto) Rin[place] % (Auto) Eos % (Auto) Baso % (Auto) Absolute Neuts (auto) Absolute Lymphs (auto) Nucleated RBC % Sodium Potassium Chloride Carbon Dioxide Anion Gap BUN Creatinine Estim Creat Clear Calc Est GFR (MDRD) Af Amer Est GFR (MDRD) Non-Af BUN/Creatinine Ratio Glucose Calcium Magnesium Total Bilirubin AST ALT Alkaline Phosphatase Total Protein Albumin Globulin Albumin/Globulin Ratio POC Glucose 105 107 117 H 08/12/19 08/12/19 08/12/19 04:20 04:20 06:07 WBC 5.6 RBC 3.04 L Hgb 9.2 L Hct 31.5 L MCV 103.6 H MCH 30.3 MCHC 29.2 L RDW Std Deviation 64.7 H RDW Coeff of Alicia 16.9 H Plt Count 197 MPV 10.2 Immature Gran % (Auto) 0.200 Neut % (Auto) 68.4 Lymph % (Auto) 16.3 L Rincon % (Auto) 10.1 H Eos % (Auto) 4.6 Baso % (Auto) 0.4 Absolute Neuts (auto) 3.9 Absolute Lymphs (auto) 0.92 Nucleated RBC % 0 Sodium 137 Potassium 3.8 Chloride 96 L Carbon Dioxide 36.0 H Anion Gap 5 BUN 29 H Creatinine 1.15 H Estim Creat Clear Calc 29.93 Est GFR (MDRD) Af Amer 58 L Est GFR (MDRD) Non-Af 48 L BUN/Creatinine Ratio 25.2 H Glucose 125 H Calcium 8.4 L Magnesium 2.4 Total Bilirubin 0.70 AST 20 ALT 15 Alkaline Phosphatase 123 H Total Protein 6.5 Albumin 2.2 L Globulin 4.3 H Albumin/Globulin Ratio 0.5 L POC Glucose 126 H 08/12/19 08/12/19 08/12/19 08:02 10:21 11:58 WBC RBC Hgb Hct MCV MCH MCHC RDW Std Deviation RDW Coeff of Alicia Plt Count MPV Immature Gran % (Auto) Neut % (Auto) Lymph % (Auto) Rincon % (Auto) Eos % (Auto) Baso % (Auto) Absolute Neuts (auto) Absolute Lymphs (auto) Nucleated RBC % Sodium Potassium Chloride Carbon Dioxide Anion Gap BUN Creatinine Estim Creat Clear Calc Est GFR (MDRD) Af Amer Est GFR (MDRD) Non-Af BUN/Creatinine Ratio Glucose Calcium Magnesium Total Bilirubin AST ALT Alkaline Phosphatase Total Protein Albumin Globulin Albumin/Globulin Ratio POC Glucose 137 H 142 H 148 H 08/12/19 08/12/19 08/13/19 16:29 21:59 09:00 WBC 6.1 RBC 2.87 L Hgb 8.6 L Hct 29.2 L MCV 101.7 H MCH 30.0 MCHC 29.5 L RDW Std Deviation 64.1 H RDW Coeff of Alicia 16.9 H Plt Count 164 MPV 9.9 Immature Gran % (Auto) 0.200 Neut % (Auto) 74.4 H Lymph % (Auto) 13.2 L Rincon % (Auto) 8.3 Eos % (Auto) 3.6 Baso % (Auto) 0.3 Absolute Neuts (auto) 4.6 Absolute Lymphs (auto) 0.81 L Nucleated RBC % 0 Sodium Potassium Chloride Carbon Dioxide Anion Gap BUN Creatinine Estim Creat Clear Calc Est GFR (MDRD) Af Amer Est GFR (MDRD) Non-Af BUN/Creatinine Ratio Glucose Calcium Magnesium Total Bilirubin AST ALT Alkaline Phosphatase Total Protein Albumin Globulin Albumin/Globulin Ratio POC Glucose 154 H 149 H Microbiology 08/10/19 18:00 Sputum, Expectorated/Coughed Gram Stain - Final 08/10/19 18:00 Sputum, Expectorated/Coughed Respiratory Culture - Preliminary Presumptive C albicans 08/10/19 22:45 Mucosa - Nasopharyngeal Respiratory Panel (PCR) - Final Influenza A (Subtype H1) Medical Necessity - Tobacco Use Smoking Status: Never smoker Tobacco Use: Non-smoker Assessment/Plan All Active Problems (Last Reviewed 07/15/19 @ 13:20 by Alessandra Valdivia) Hypoglycemia (Acute) CHF exacerbation (Acute) Pneumonia (Acute) Encephalopathy acute (Acute) Cardiogenic shock (Acute) Bradycardia (Acute) Renal failure (ARF), acute on chronic (Acute) Acute hyperkalemia (Acute) Debility (Acute) Unresponsiveness (Resolved) History of respiratory failure with hypo (Resolved) Anemia (Ruled-out) RECOMMENDATIONS: 1. Decrease diuresis 2. Increase activity as tolerated 3. Empiric antibiotics and Tamiflu. 4. Wean oxygen as tolerated 5. BiPAP rescue as necessary during the day with BiPAP at night 6. Possibly transfer from the intensive care unit later today IMPRESSIONS: 1. Acute hypoxic respiratory failure secondary to acute diastolic CHF exacerbation Care complicated by concomitant hypoglycemia and need for D10 drip. Patient was significant diuresis over the last 24 hours, but oxygenation is much improved. Patient has had some hypotension, so some fluid had to be given back. Patient does have severe mixed ventilatory defects on recent PFT, which also complicates management. Can use BiPAP rescue as necessary during the day. Complicated by concomitant influenza infection. Patient is on Tamiflu. 2. COPD exacerbation secondary to influenza A Patient does have a protracted hospital course and will be at risk for resistant organisms. Agree with IV Zosyn until further information is available. Patient currently hemodynamically stable. Unclear how much of patient's mental status is secondary to hypoglycemia versus severe sepsis. Would hold on fluid boluses given cardiac history and clinically overloaded status. Patient is a full code and can be intubated if necessary. 3. Hypoglycemia Unclear etiology. Resolved. Some concern for decreased excretion of Amaryl. Patient is on Amaryl as an outpatient. Okay to transition to as needed blood checks from my perspective (every 6 versus q. AC/at bedtime pending p.o. intake) 4. Acute metabolic encephalopathy Clinical suspicion for an element of diagnoses 1, 2 and 3 leading to mental status. Would recommend delirium protocol. 5. CKD stage IV/hypertension/hyperlipidemia/anxiety/depression/paroxysmal A. fib/advanced age Complicates care, management, recovery and prognosis. Watch blood pressure closely. We will continue with metoprolol for rate control. Apply antibacterial to labial excoriations. Avoid benzodiazepines if possible. Haldol as necessary for agitation. Inpatient E&M: 08225 Subs Hosp L3
[2019-08-13 11:09] LABS: Anion Gap 2 (5-15); BUN 27 mg/dL (7-18); Calcium,Total 8.3 mg/dL (8.5-10.1); Chloride 101 mmol/L (98-107); Creatinine, Serum 1.08 mg/dL (0.55-1.02); EST Glomerular Filtration Rate 52 mL/min (>60); Est Glom Filt Rate - Afr Amer 63 mL/min (>60); Estimated Creatinine Clearance 31.87 ml/min; Glucose 157 mg/dL (74-106); Potassium 3.8 mmol/L (3.5-5.1); Sodium Level 142 mmol/L (136-145)
[2019-08-13] MEDS: APIXABAN 2.5 MG TABLET PO ×2 (12:32→21:17)
[2019-08-13] MEDS: Oseltamivir Phosphate 30 MG Capsule PO (12:32)
[2019-08-13 12:41] LABS: Bedside Glucose 142 mg/dL (70-110)
--- NOTE | 2019-08-13 13:01 | CASEMGMT ---
SW completed palliative screening, pt may be a candidate for palliative care. However, at present daughter seems overwhelmed with current situation. STEW called Lorraine at [facility] and asked if their SW/regional planner can speak w/daughter about palliative when pt is there. Lorraine will follow up. ERIC Elkins
[2019-08-13 17:16] LABS: Bedside Glucose 167 mg/dL (70-110)
[2019-08-13] MEDS: Atorvastatin Calcium 20 MG Tablet PO (21:17)
[2019-08-13] MEDS: Senna/Docusate Sodium 1 Tablet PO (21:17)
[2019-08-13] MEDS: traZODone 50 MG Tablet PO (21:17)
[2019-08-13] MEDS: Mirtazapine 15 MG Tablet 7.5 MG PO (21:17)
[2019-08-13 21:45] LABS: Bedside Glucose 223 mg/dL (70-110)
[2019-08-14] VITALS (23 sets, daily range): BP systolic 108–159; BP diastolic 53–88; PULSE 82–107; RESP 14–31; TEMP 36.8–37.3; O2SAT 92–100
[2019-08-14 04:05] LABS: Absolute Lymphocyte Count 0.85 X10^3/uL (0.83-4.51); Absolute Neutrophil Count 10.2 X10^3/uL (2.0-7.7); Basophil# 0.03 X10^3/uL; Basophil% 0.2 % (0-1); Eosinophils% 0.8 % (0-5); Hematocrit 31.2 % (37-47); Hemoglobin 9.3 g/dL (12.0-15.0); Lymphocyte # 0.85 X10^3/ul (4.0); Mean Corp Hgb Conc 29.8 g/dL (32-36); Mean Corpuscular Hgb 30.1 pg (27.0-32.0); Mean Platelet Vol. 10.3 fl (6.2-12.0); Monocyte# 0.82 X10^3/uL; Monocyte% 6.8 % (0-10); NRBC Flagged by Analyzer 0 % (0-5); Neutrophil # 10.23 X10^3/uL (2.7-7.7); Neutrophil % 84.7 % (47-70); Platelet Count 209 K/mm3 (150-450); RBC Distribution Width CV 16.9 % (11.6-14.6); RBC Distribution Width SD 63.6 fl (35.1-43.9); Red Blood Count 3.09 M/mm3 (4.2-5.4); White Blood Count 12.1 K/mm3 (4.4-11.0)
[2019-08-14 04:27] LABS: ALB/GLOB Ratio 0.5 RATIO (0.9-2.4); AST(SGOT) 14 U/L (15-37); Alanine Aminotransfer ALT/SGPT 11 U/L (13-56); Albumin, Serum 2.4 g/dL (3.2-5.0); Alkaline Phosphatase 122 U/L (45-117); Anion Gap 4 (5-15); BUN 27 mg/dL (7-18); BUN/Creat Ratio 23.9 RATIO (10-20); Calcium,Total 8.9 mg/dL (8.5-10.1); Chloride 97 mmol/L (98-107); Creatinine, Serum 1.13 mg/dL (0.55-1.02); EST Glomerular Filtration Rate 49 mL/min (>60); Est Glom Filt Rate - Afr Amer 60 mL/min (>60); Estimated Creatinine Clearance 30.46 ml/min; Globulin 4.7 g/dL (2.2-4.2); Glucose 217 mg/dL (74-106); Potassium 3.7 mmol/L (3.5-5.1); Protein, Total 7.1 g/dL (6.4-8.2); Sodium Level 139 mmol/L (136-145)
[2019-08-14] MEDS: Menthol/Lanolin/Calamine/Znox 113 GM Tube 1 APPLIC TOPICAL ×2 (05:09→22:05)
[2019-08-14] MEDS: Nystatin Powder 15gm Bottle 1 APPLIC TOPICAL ×2 (05:09→22:08)
[2019-08-14] MEDS: Ipratropium/Albuterol Sulfate 3 ML AMPUL.NEB INHALATION ×4 (06:34→20:01)
[2019-08-14 06:51] LABS: Bedside Glucose 190 mg/dL (70-110)
--- NOTE | 2019-08-14 07:15 | PCM.PN.INT ---
Subjective: Patient did well overnight. Patient continues to have a dry cough and reports I feel like I have been hit by a truck. Patient's mentation is much improved today. Blood pressures have been stable overnight with no acute interventions. Patient currently on room air. General: Alert, Oriented x3, Cooperative, No apparent distress, - - Morbidly obese. No conversational dyspnea. HEENT: Atraumatic, PERRLA, EOMI, Normocephalic Oral: Moist Mucosa, No Gingival or Mucosal Lesions/ Ulcerations, - - Cough improved compared to previous Neck: Supple, No JVD, No Nodes, Trachea Midline Lungs: No rhonchi, No wheeze, No rales, Diminished Cardiovascular: Regular rate, Regular Rhythm, Normal S1, Normal S2, Murmur, No rub noted, No Gallop Abdomen: Bowel Sounds Present, Soft, Non Tender, Non-Distended, Obese Extremities: No cyanosis, Edema - Improved Skin: - - No change compared to previous Musculoskeletal: No Tenderness to Palpation of Joints or Extremities Lymphatic: No Cervical, Supraclavicular, or Inguinal Adenopathy Neurological: Cranial nerves II-XII grossly intact, Neuro grossly intact, Motor Exam 5/5 strength throughout Psych/Mental Status: Normal Affect, Appropriate Vital Signs Temp Pulse Resp BP Pulse Ox 36.9 C 98 24 H 150/75 H 98 08/14/19 04:00 08/14/19 07:00 08/14/19 07:00 08/14/19 07:00 08/14/19 07:00 Oxygen Flow Rate (L/min) 1 Oxygen Delivery Method Room Air Weight: 104.2 kg Body Mass Index (BMI) 43.4 Finger Stick Blood Glucose 62 Intake and Output for Last 24 Hours 08/12/19 08/13/19 08/14/19 23:59 23:59 23:59 Intake Total 1252.950 / 9349.177 4123 / 1230 140 / 140 Output Total 3450 / 4150 1735 / 1735 150 / 150 Balance -2197.050 / -2777.050 -505 / -505 -10 / -10 Labs (Last 48 Hours) 08/12/19 08/12/19 08/12/19 08:02 10:21 11:58 WBC RBC Hgb Hct MCV MCH MCHC RDW Std Deviation RDW Coeff of Alicia Plt Count MPV Immature Gran % (Auto) Neut % (Auto) Lymph % (Auto) Travis % (Auto) Eos % (Auto) Baso % (Auto) Absolute Neuts (auto) Absolute Lymphs (auto) Nucleated RBC % Sodium Potassium Chloride Carbon Dioxide Anion Gap BUN Creatinine Estim Creat Clear Calc Est GFR (MDRD) Af Amer Est GFR (MDRD) Non-Af BUN/Creatinine Ratio Glucose Calcium Total Bilirubin AST ALT Alkaline Phosphatase Total Protein Albumin Globulin Albumin/Globulin Ratio POC Glucose 137 H 142 H 148 H 08/12/19 08/12/19 08/13/19 16:29 21:59 04:45 WBC RBC Hgb Hct MCV MCH MCHC RDW Std Deviation RDW Coeff of Alicia Plt Count MPV Immature Gran % (Auto) Neut % (Auto) Lymph % (Auto) Travis % (Auto) Eos % (Auto) Baso % (Auto) Absolute Neuts (auto) Absolute Lymphs (auto) Nucleated RBC % Sodium 142 Potassium 3.8 Chloride 101 Carbon Dioxide 39.0 H Anion Gap 2 L BUN 27 H Creatinine 1.08 H Estim Creat Clear Calc 31.87 Est GFR (MDRD) Af Amer 63 Est GFR (MDRD) Non-Af 52 L BUN/Creatinine Ratio 25.0 H Glucose 157 H Calcium 8.3 L Total Bilirubin AST ALT Alkaline Phosphatase Total Protein Albumin Globulin Albumin/Globulin Ratio POC Glucose 154 H 149 H 08/13/19 08/13/19 08/13/19 09:00 12:29 17:09 WBC 6.1 RBC 2.87 L Hgb 8.6 L Hct 29.2 L MCV 101.7 H MCH 30.0 MCHC 29.5 L RDW Std Deviation 64.1 H RDW Coeff of Alicia 16.9 H Plt Count 164 MPV 9.9 Immature Gran % (Auto) 0.200 Neut % (Auto) 74.4 H Lymph % (Auto) 13.2 L Travis % (Auto) 8.3 Eos % (Auto) 3.6 Baso % (Auto) 0.3 Absolute Neuts (auto) 4.6 Absolute Lymphs (auto) 0.81 L Nucleated RBC % 0 Sodium Potassium Chloride Carbon Dioxide Anion Gap BUN Creatinine Estim Creat Clear Calc Est GFR (MDRD) Af Amer Est GFR (MDRD) Non-Af BUN/Creatinine Ratio Glucose Calcium Total Bilirubin AST ALT Alkaline Phosphatase Total Protein Albumin Globulin Albumin/Globulin Ratio POC Glucose 142 H 167 H 08/13/19 08/14/19 08/14/19 21:37 03:40 03:40 WBC 12.1 H RBC 3.09 L Hgb 9.3 L Hct 31.2 L MCV 101.0 H MCH 30.1 MCHC 29.8 L RDW Std Deviation 63.6 H RDW Coeff of Alicia 16.9 H Plt Count 209 MPV 10.3 Immature Gran % (Auto) 0.500 Neut % (Auto) 84.7 H Lymph % (Auto) 7.0 L Travis % (Auto) 6.8 Eos % (Auto) 0.8 Baso % (Auto) 0.2 Absolute Neuts (auto) 10.2 H Absolute Lymphs (auto) 0.85 Nucleated RBC % 0 Sodium 139 Potassium 3.7 Chloride 97 L Carbon Dioxide 38.0 H Anion Gap 4 L BUN 27 H Creatinine 1.13 H Estim Creat Clear Calc 30.46 Est GFR (MDRD) Af Amer 60 Est GFR (MDRD) Non-Af 49 L BUN/Creatinine Ratio 23.9 H Glucose 217 H Calcium 8.9 Total Bilirubin 1.00 AST 14 L ALT 11 L Alkaline Phosphatase 122 H Total Protein 7.1 Albumin 2.4 L Globulin 4.7 H Albumin/Globulin Ratio 0.5 L POC Glucose 223 H 08/14/19 06:46 WBC RBC Hgb Hct MCV MCH MCHC RDW Std Deviation RDW Coeff of Alicia Plt Count MPV Immature Gran % (Auto) Neut % (Auto) Lymph % (Auto) Travis % (Auto) Eos % (Auto) Baso % (Auto) Absolute Neuts (auto) Absolute Lymphs (auto) Nucleated RBC % Sodium Potassium Chloride Carbon Dioxide Anion Gap BUN Creatinine Estim Creat Clear Calc Est GFR (MDRD) Af Amer Est GFR (MDRD) Non-Af BUN/Creatinine Ratio Glucose Calcium Total Bilirubin AST ALT Alkaline Phosphatase Total Protein Albumin Globulin Albumin/Globulin Ratio POC Glucose 190 H Microbiology 08/10/19 18:00 Sputum, Expectorated/Coughed Gram Stain - Final 08/10/19 18:00 Sputum, Expectorated/Coughed Respiratory Culture - Final Presumptive C albicans Medical Necessity - Tobacco Use Smoking Status: Never smoker Tobacco Use: Non-smoker Assessment/Plan All Active Problems (Last Reviewed 07/15/19 @ 13:20 by Alessandra Valdivia) Hypoglycemia (Acute) CHF exacerbation (Acute) Pneumonia (Acute) Encephalopathy acute (Acute) Cardiogenic shock (Acute) Bradycardia (Acute) Renal failure (ARF), acute on chronic (Acute) Acute hyperkalemia (Acute) Debility (Acute) Unresponsiveness (Resolved) History of respiratory failure with hypo (Resolved) Anemia (Ruled-out) RECOMMENDATIONS: 1. Consider transition to p.o. Lasix 2. Increase activity as tolerated 3. Empiric antibiotics and Tamiflu for a total of 5 days. 4. Wean oxygen as tolerated 5. BiPAP rescue as necessary during the day with BiPAP at night 6. Transfer from the intensive care unit IMPRESSIONS: 1. Acute hypoxic respiratory failure secondary to acute diastolic CHF exacerbation Care complicated by concomitant hypoglycemia and need for D10 drip initially. Patient was significant diuresis over the last 24 hours, but oxygenation is much improved. Patient was some hypotension yesterday, but this did respond to fluids. No issues overnight with blood pressure. Patient does have severe mixed ventilatory defects on recent PFT, which also complicates management. Can use BiPAP rescue as necessary during the day. Complicated by concomitant influenza infection. Patient is on Tamiflu. Would treat for total of 5 days 2. COPD exacerbation secondary to influenza A Patient does have a protracted hospital course and will be at risk for resistant organisms. Agree with IV Zosyn until further information is available. Patient currently hemodynamically stable. Unclear how much of patient's mental status is secondary to hypoglycemia versus severe sepsis. Would hold on fluid boluses given cardiac history and clinically overloaded status. Patient is a full code and can be intubated if necessary. 3. Hypoglycemia Unclear etiology. Resolved. Some concern for decreased excretion of Amaryl. Patient is on Amaryl as an outpatient. Okay to transition to as needed blood checks from my perspective (every 6 versus q. AC/at bedtime pending p.o. intake) with low-dose sliding scale 4. Acute metabolic encephalopathy Clinical suspicion for an element of diagnoses 1, 2 and 3 leading to mental status. Would recommend delirium protocol. 5. CKD stage IV/hypertension/hyperlipidemia/anxiety/depression/paroxysmal A. fib/advanced age Complicates care, management, recovery and prognosis. Watch blood pressure closely. We will continue with metoprolol for rate control. Apply antibacterial to labial excoriations. Avoid benzodiazepines if possible. Haldol as necessary for agitation. Inpatient E&M: 10471 Subs Hosp L3
[2019-08-14] MEDS: Glucerna Shake 120 ML LIQUID PO (09:52)
[2019-08-14] MEDS: Metoprolol Tartrate 25 MG Tablet PO ×2 (09:53→22:07)
[2019-08-14] MEDS: Pantoprazole Sodium 40 MG Tablet PO (09:53)
[2019-08-14] MEDS: APIXABAN 2.5 MG TABLET PO ×2 (09:59→22:06)
[2019-08-14] MEDS: BACITRACIN/POLYMYXIN B 15 GM Tube 1 APPLIC TOPICAL ×2 (09:59→22:08)
[2019-08-14] MEDS: Furosemide 40 MG/4 ML Vial IV (09:59)
[2019-08-14] MEDS: Iron Polysaccharide Complex 150 MG CAPSULE PO (09:59)
[2019-08-14] MEDS: Oseltamivir Phosphate 30 MG Capsule PO (09:59)
[2019-08-14] MEDS: Insulin Lispro 100 UNIT/ML INSULN.PEN SC ×4 (10:01→22:18)
--- NOTE | 2019-08-14 10:09 | CASEMGMT ---
SW participated in ICU rounds, daughter present. Plan continues to be for pt to go to [facility] at discharge. SW called [facility], let them know pt is still in ICU, may possibly leave ICU today or tomorrow. Updates faxed, will continue to follow. ERIC Elkins
[2019-08-14] MEDS: Acetaminophen 325 MG Tablet 650 MG PO (10:17)
--- NOTE | 2019-08-14 14:53 | CHAPLAIN ---
Type of Pastoral Visit ___ Initial Visit _x__ Follow-up Visit ___ On-call Visit ___ General Patient Visit ___ Spiritual Assessment ___ Family Conference ___ Bereavement ___ Rapid Response ___ Code Blue ___ Other (describe below) Pastoral Care Referral From _x__ Patient _x__ Family ___ Nurse ___ Physician ___ Compliance And Control Analyst ___ Piping Engineer ___ Other (describe below) Sacrament/Intervention _x__ Active listening ___ Anointing ___ Jewish ___ Bereavement ___ Communion ___ Audra exploration ___ ___ Life review _x__ Prayer ___ Reconciliation ___ Sacrament of Sick _x__ Supportive presence ___ Wedding ___ Other (describe below) Pastoral Comments
--- NOTE | 2019-08-14 14:56 | PCM.PN.HOSP ---
Patient Problems: Active and Suspected Problems (Last Reviewed 07/15/19 @ 13:20 by Alessandra Valdivia) Hypoglycemia (Acute) CHF exacerbation (Acute) Pneumonia (Acute) Encephalopathy acute (Acute) Reason for Visit: Follow-up on acute hypoxic respiratory insufficiency/acute influenza A/acute on chronic diastolic CHF/acute metabolic encephalopathy/hypoglycemia Subjective: Patient was seen and examined. She is much better today. Much awake, interactive. Complains of generalized aches. Denies any fever or chills. Still has bouts of coughing. Objective: Physical exam: General: Alert, oriented x 3, Cooperative - - On 2 L of oxygen, appears frail HEENT: Atraumatic, PERRLA, EOMI, Normocephalic Oral: Dry Mucosa Neck: Supple Lungs: Diminished Cardiovascular: Regular rate, Regular Rhythm, Normal S1, Normal S2, No murmurs Abdomen: Bowel Sounds Present, Soft, Non Tender, Non-Distended, No Hepato-splenomegaly Extremities: Edema - +2-3edema, PATRICK wraps to both legs Skin: No rashes Musculoskeletal: No Tenderness to Palpation of Joints or Extremities Lymphatic: No Cervical, Supraclavicular, or Inguinal Adenopathy Neurological: Cranial nerves II-XII grossly intact, Neuro grossly intact Psych/Mental Status: Normal Affect, Appropriate Vitals/I&O's: Vital Signs Temp Pulse Resp BP Pulse Ox 99.1 F 100 20 H 153/81 H 100 08/14/19 08:00 08/14/19 14:36 08/14/19 14:36 08/14/19 09:53 08/14/19 09:00 Oxygen Flow Rate (L/min) 2 Oxygen Delivery Method Nasal Cannula Weight: 104.2 kg Body Mass Index (BMI) 43.4 Finger Stick Blood Glucose 62 Intake and Output for Last 24 Hours 08/12/19 08/13/19 08/14/19 23:59 23:59 23:59 Intake Total 1252.950 / 8723.575 6380 / 1230 190 / 190 Output Total 3450 / 4150 1735 / 1735 150 / 150 Balance -2197.050 / -2777.050 -505 / -505 40 / 40 Microbiology Past 72 Hours 08/10/19 18:00 Sputum, Expectorated/Coughed Gram Stain - Final 08/10/19 18:00 Sputum, Expectorated/Coughed Respiratory Culture - Final Presumptive C albicans 08/10/19 22:45 Mucosa - Nasopharyngeal Respiratory Panel (PCR) - Final Influenza A (Subtype H1) Laboratory Results 08/13/19 17:09: POC Glucose 167 H 08/13/19 21:37: POC Glucose 223 H 08/14/19 03:40: WBC 12.1 H, RBC 3.09 L, Hgb 9.3 L, Hct 31.2 L, MCV 101.0 H, MCH 30.1, MCHC 29.8 L, RDW Std Deviation 63.6 H, RDW Coeff of Alicia 16.9 H, Plt Count 209, MPV 10.3, Immature Gran % (Auto) 0.500, Neut % (Auto) 84.7 H, Lymph % (Auto) 7.0 L, [place] % (Auto) 6.8, Eos % (Auto) 0.8, Baso % (Auto) 0.2, Absolute Neuts (auto) 10.2 H, Absolute Lymphs (auto) 0.85, Nucleated RBC % 0 08/14/19 03:40: Sodium 139, Potassium 3.7, Chloride 97 L, Carbon Dioxide 38.0 H, Anion Gap 4 L, BUN 27 H, Creatinine 1.13 H, Estim Creat Clear Calc 30.46, Est GFR (MDRD) Af Amer 60, Est GFR (MDRD) Non-Af 49 L, BUN/Creatinine Ratio 23.9 H, Glucose 217 H, Calcium 8.9, Total Bilirubin 1.00, AST 14 L, ALT 11 L, Alkaline Phosphatase 122 H, Total Protein 7.1, Albumin 2.4 L, Globulin 4.7 H, Albumin/Globulin Ratio 0.5 L 08/14/19 06:46: POC Glucose 190 H Current Medications Acetaminophen (Tylenol) 650 mg PO Q6H PRN PRN PRN Reason: Pain Score 1-10/Temp > 100.7 F Last Admin: 08/14/19 10:17 Dose: 650 mg Documented by: Al Hydroxide/Mg Hydroxide (Mylanta Ii) 30 ml PO Q6H PRN PRN PRN Reason: Gastric Burning Albuterol/Ipratropium (Duoneb) 3 ml INHALATION Q4HWA.RT [facility] Last Admin: 08/14/19 14:15 Dose: 3 ml Documented by: Apixaban (Eliquis) 2.5 mg PO BID [facility] Last Admin: 08/14/19 09:59 Dose: 2.5 mg Documented by: Aspirin (Aspirin, Baby) 81 mg PO DAILY@0800 [facility] Last Admin: 08/13/19 09:18 Dose: 81 mg Documented by: Atorvastatin Calcium (Lipitor) 20 mg PO QHS [facility] Last Admin: 08/13/19 21:17 Dose: 20 mg Documented by: Bacitracin/Polymyxin B Sulfate (Polysporin Ointment) 1 applic TOPICAL BID [facility]; Protocol Last Admin: 08/14/19 09:59 Dose: 1 applicatio Documented by: Calamine/Phenol (Calmoseptine Ointment) 1 applic TOPICAL 0600,2200 [facility]; Protocol Last Admin: 08/14/19 05:09 Dose: 1 applicatio Documented by: Cholecalciferol (Vitamin D (25mcg)) 1,000 unit PO DAILY [facility] Last Admin: 08/14/19 09:59 Dose: 1,000 unit Documented by: Furosemide (Lasix) 40 mg IV DAILY [facility] Last Admin: 08/14/19 09:59 Dose: 40 mg Documented by: Glucagon () 1 mg IM .X1 PRN PRN Reason: Hypoglycemia Guaifenesin (Robitussin) 20 ml PO Q4H PRN PRN PRN Reason: COUGH Dextrose (Dextrose 10%-Water) 250 mls @ 999 mls/hr IV .Q16M PRN; Protocol PRN Reason: HYPOGLYCEMIA Last Infusion: 08/11/19 01:52 Dose: Infused Documented by: Sodium Chloride () 250 mls @ 15 mls/hr IV .[id number] PRN PRN Reason: Saline Flush Sodium Chloride () 250 mls @ 15 mls/hr IV .[id number] PRN PRN Reason: Additional IVPB Infusion Insulin Human Lispro (Humalog Kwikpen (Bkc)) 0 unit SC ACHS [facility]; Protocol Last Admin: 08/14/19 10:01 Dose: 1 u Documented by: Metoprolol Tartrate (Lopressor (Beta Lucina)) 25 mg PO BID [facility] Last Admin: 08/14/19 09:53 Dose: 25 mg Documented by: Mirtazapine (Remeron) 7.5 mg PO QHS [facility] Last Admin: 08/13/19 21:17 Dose: 7.5 mg Documented by: Morphine Sulfate () 2 mg IV Q3H PRN PRN PRN Reason: Pain Score 6-10/10 Multi-Ingredient Cream (Eucerin) 1 applic TOPICAL 2199 [facility]; Protocol Last Admin: 08/13/19 21:14 Dose: 1 applicatio Documented by: Nitroglycerin (Nitrostat) 0.4 mg SUBLINGUAL Q5M PRN PRN Reason: CARDIAC/CHEST PAIN Nutritional Formula (Lactose Free) (Glucerna Shake) 120 ml PO 4X/DAY [facility] Last Admin: 08/14/19 09:52 Dose: 120 ml Documented by: Nystatin (Mycostatin Powder) 1 applic TOPICAL 0600,0 [facility]; Protocol Last Admin: 08/14/19 05:09 Dose: 1 applicatio Documented by: Ondansetron HCl (Zofran) 4 mg IV Q8H PRN PRN PRN Reason: NAUSEA/VOMITING Oxycodone HCl (Oxyir) 5 mg PO Q4H PRN PRN PRN Reason: Pain Score 4-5/10 Last Admin: 08/12/19 21:51 Dose: 5 mg Documented by: Pantoprazole Sodium (Protonix) 40 mg PO DAILY [facility] Last Admin: 08/14/19 09:53 Dose: 40 mg Documented by: Polyethylene Glycol (Miralax) 17 gm PO DAILY [facility] Last Admin: 08/14/19 09:54 Dose: Not Given Documented by: Polysaccharide Iron Complex (Ferrex 150) [facility] Last Admin: 08/14/19 09:59 Dose: 150 mg Documented by: Prochlorperazine Edisylate (Compazine Iv) 5 mg IV Q4H PRN PRN PRN Reason: Breakthrough Nausea/Vomiting Senna/Docusate Sodium (Senokot-S, Rachel-Colace) 1 tablet PO BID [facility] Last Admin: 08/14/19 09:54 Dose: Not Given Documented by: Sodium Chloride () 10 - 40 ml IV UD PRN PRN Reason: SALINE FLUSH Last Admin: 08/12/19 12:02 Dose: 10 ml Documented by: Throat Lozenges (Cepacol Sore Throat Lozenge) 1 lozenge MUCOUS MEM Q2H PRN PRN PRN Reason: SORE THROAT Trazodone HCl (Desyrel) 50 mg PO QHS [facility] Last Admin: 08/13/19 21:17 Dose: 50 mg Documented by: STROKE Vital Signs/Narrative: Vital Signs Pulse Resp 08/14/19 14:36 100 20 H Medical Necessity - Tobacco Use Smoking Status: Never smoker Tobacco Use: Non-smoker Assessment/Plan All Active Problems (Last Reviewed 07/15/19 @ 13:20 by Alessandra Valdivia) Hypoglycemia (Acute) CHF exacerbation (Acute) Pneumonia (Acute) Encephalopathy acute (Acute) Cardiogenic shock (Acute) Bradycardia (Acute) Renal failure (ARF), acute on chronic (Acute) Acute hyperkalemia (Acute) Debility (Acute) Unresponsiveness (Resolved) History of respiratory failure with hypo (Resolved) Anemia (Ruled-out) 1. Episode of hypotension, resolved 2. Acute hypoxic respiratory insufficiency, secondary to #2 and #3 Appears to be stable, continue on oxygen, encouraged use of incentive spirometer, breathing treatments 2. Acute on chronic diastolic CHF, patient with recent weight gain, improving, Diuresed a lot, edema appears improved, Patrick wraps present Lasix changed to po 40 mg daily, continue with strict input output monitoring per CHF protocol 3. Probable pneumonia, MRSA PCR negative, repeat CXR(08/11/19) shows persistent right lower lobe infiltrate vs atelectasis No fevers or WBC noted. Urine streptococcal and legionella antigen negative Completed 5 days of treatment with IV Zosyn 4. Acute influenza A bronchitis, on Tamiflu, complete Tamiflu today 5. Acute metabolic encephalopathy secondary to hypoglycemia, use of oral hypoglycemics, resolved 6. Hypoglycemia, secondary to poor p.o. intake, Blood sugars starting to be elevated Will continue on insulin sliding scale, medium dose, continue on blood glucose checks with insulin sliding scale 7. Hypertension/PAF, blood pressure and heart rate controlled, Continue on metoprolol and apixaban 8. Anxiety/depression, continue on Remeron and trazodone 9. DVT PPx- On apixaban 10. GI PPx- on PPI Inpatient E&M: 80450 [facility] Hosp L2
[2019-08-14 15:01] LABS: Bedside Glucose 257 mg/dL (70-110)
[2019-08-14 17:11] LABS: Bedside Glucose 212 mg/dL (70-110)
[2019-08-14] MEDS: traZODone 50 MG Tablet PO (22:06)
[2019-08-14] MEDS: Mirtazapine 15 MG Tablet 7.5 MG PO (22:09)
[2019-08-14] MEDS: Atorvastatin Calcium 20 MG Tablet PO (22:10)
--- NOTE | 2019-08-14 22:15 | CPS ---
bipap not set up, pt did not wear bipap in ICU last night
[2019-08-14 22:26] LABS: Bedside Glucose 231 mg/dL (70-110)
[2019-08-15] VITALS (11 sets, daily range): BP systolic 109–138; BP diastolic 57–85; PULSE 88–100; RESP 18–22; TEMP 36.2–37.1; O2SAT 95–98
[2019-08-15] MEDS: Menthol/Lanolin/Calamine/Znox 113 GM Tube 1 APPLIC TOPICAL (06:34)
[2019-08-15] MEDS: Nystatin Powder 15gm Bottle 1 APPLIC TOPICAL (06:34)
[2019-08-15] MEDS: Insulin Lispro 100 UNIT/ML INSULN.PEN SC ×2 (06:35→11:22)
[2019-08-15] MEDS: Ipratropium/Albuterol Sulfate 3 ML AMPUL.NEB INHALATION ×3 (06:40→14:07)
[2019-08-15 06:46] LABS: Bedside Glucose 167 mg/dL (70-110)
[2019-08-15] MEDS: Aspirin 81 MG TAB.CHEW PO (09:59)
[2019-08-15] MEDS: Pantoprazole Sodium 40 MG Tablet PO (09:59)
[2019-08-15] MEDS: APIXABAN 2.5 MG TABLET PO (09:59)
[2019-08-15] MEDS: Metoprolol Tartrate 25 MG Tablet PO (09:59)
[2019-08-15] MEDS: BACITRACIN/POLYMYXIN B 15 GM Tube 1 APPLIC TOPICAL (10:00)
[2019-08-15] MEDS: Furosemide 40 MG Tablet PO (10:00)
[2019-08-15] MEDS: Iron Polysaccharide Complex 150 MG CAPSULE PO (10:00)
--- NOTE | 2019-08-15 11:33 | PCM.TXEXTCAR ---
- Diet 08/10/19 21:37 Diet: Regular Diet Food consistency:: Regular Liquid Consistency:: Regular/Thin Is pt able to select menu?: Yes - Routine Orders/Code Status Routine Lab Work: CBC - within 3 days, BMP - within 3 days - Wound(s) LT lower leg Wound Type: Abrasion Rt labia majora Wound Type: Laceration - Therapies Physical Therapy: Eval and Treat Occupational Therapy: Eval and Treat - Allergies/Procedures Done in Hospital Allergies/Adverse Reactions: Allergies Penicillins [PCN] Allergy (Verified 08/10/19 18:03) Other shellfish derived Allergy (Verified 08/10/19 18:03) Other Procedures: None - Type of Care/Length of Stay Estimated LOS: Convalescent Care Less Than 30 days Type of Care Needed: Skilled Rehab Potential: Good Prognosis: Good - Additional Orders/Day of Discharge Additional Orders: Continue to use OPAL-wraps 12 hours on, 12 hours off. Daily weights, Lasix may need to be adjusted if patient continues to gain weight. Fluid restriction 1500mls. Continue to encourage use of incentive spirometer. Wean off for SPO2 more than 92 to 94%. Day of Discharge: 08/15/19 - Dietary and Speech Recommendations Dietitian Recommendations/Changes: Continue regular diet. Will provide ONS at [facility]. - Follow Up Care Primary Care Physician: Fam Nieves Chi, MD [Primary Care Provider] - Please follow up with your Primary Care Physician in: within 1-2 weeks
--- NOTE | 2019-08-15 11:40 | PCM.DC.SUM ---
Discharge Date and Diagnosis Date of Admission: 08/10/19 Date of Discharge: 08/15/19 - Primary Discharge Diagnosis Active and Suspected Problems (Last Reviewed 07/15/19 @ 13:20 by Alessandra Valdivia) Hypotension Recurrent hypoglycemia Acute metabolic encephalopathy Acute hypoxic respiratory insufficiency Acute on chronic diastolic CHF Probable pneumonia Acute influenza A bronchitis - Secondary Discharge Diagnosis Chronic Problems (Last Reviewed 07/15/19 @ 13:20 by Alessandra Valdivia) Anxiety and depression (Chronic) History of respiratory failure (Chronic) extubated 06/18/2019 @ [facility] Paroxysmal atrial fibrillation (Chronic) Sick sinus syndrome (Chronic) Edema (Chronic) Anticoagulant long-term use (Chronic) Anemia, unspecified (Chronic) CKD (chronic kidney disease) (Chronic) Essential hypertension (Chronic) DM2 (diabetes mellitus, type 2) (Chronic) COPD (chronic obstructive pulmonary disease) (Chronic) GERD (gastroesophageal reflux disease) (Chronic) Methicillin resistant Staph aureus culture positive (Chronic) Cellulitis of right ankle (Chronic) Osteoporosis (Chronic) Anxiety (Chronic) GERD (gastroesophageal reflux disease) (Chronic) Insomnia (Chronic) Hyperlipidemia (Chronic) Hospital Course and Treatment Imaging Results: Clinical Impression(s) from Imaging Studies Chest X-Ray 08/10/19 18:31 IMPRESSION: Right basilar infiltrate and/or atelectasis. Small right-sided pleural effusion. Findings appear similar to the previous study. Electronically Signed: Gerald Calabrese MD at 19:04 EDT , Service support , Chest X-Ray 08/11/19 05:35 IMPRESSION: No significant change. Small right pleural effusion with right basilar atelectasis or infiltrate. at [id number] Reported and signed by: Dennys Blair MD Electronically Signed: Dennys Blair, at 7:05 EDT Tel , Service support , Pulmonology Cardiology Operations: None Procedures: None Summary of Care Provided: The patient is a 78 year old F with multiple comorbidities with was recently discharged from TCU and admitted with hypoxia and found to be positive for acute influenza A. Baseline, patient is able to ambulate without assistive devices. Patient was found to be progressively weak and confused. Brought to the emergency department. Found to be hypoglycemic. Managed on D10 fluids. She was also started on Tamiflu and IV antibiotics. She was managed usually in the ICU. She received IV Lasix for recent weight gain. She experienced an episode of hypotension that resolved with IV fluids. Her Lasix dose was changed. MRSA PCR was negative. Her initial vancomycin and Zosyn were de-escalated to Zosyn. Patient completed 5 days of Zosyn. She also completed 5 days of Tamiflu. With improvement in her blood sugars patient mentation continued to improve. She was started on low-dose Amaryl at discharge. Patient was seen by PT and OT and skilled for discharge to the correction. She will be monitored closely in the correction. Subjective: On the day of discharge, patient was seen and examined. She denied any new complaints. Remains on 2 L of oxygen. Objective: Physical exam: General: Alert, oriented x 3, Cooperative - - On 2 L of oxygen, appears frail HEENT: Atraumatic, PERRLA, EOMI, Normocephalic Oral: Dry Mucosa Neck: Supple Lungs: Diminished Cardiovascular: Regular rate, Regular Rhythm, Normal S1, Normal S2, No murmurs Abdomen: Bowel Sounds Present, Soft, Non Tender, Non-Distended, No Hepato-splenomegaly Extremities: Edema - +2-3edema, OPAL wraps to both legs Skin: No rashes Musculoskeletal: No Tenderness to Palpation of Joints or Extremities Lymphatic: No Cervical, Supraclavicular, or Inguinal Adenopathy Neurological: Cranial nerves II-XII grossly intact, Neuro grossly intact Psych/Mental Status: Normal Affect, Appropriate - Physical Exam Vitals/I&O's: Vital Signs Temp Pulse Resp BP Pulse Ox 98.4 F 98 20 H 109/71 95 08/15/19 10:02 08/15/19 11:12 08/15/19 11:12 08/15/19 10:02 08/15/19 11:15 Oxygen Flow Rate (L/min) 3 Oxygen Delivery Method Nasal Cannula Weight: 100.1 kg Body Mass Index (BMI) 43.4 Finger Stick Blood Glucose 62 Intake and Output for Last 24 Hours 08/13/19 08/14/19 08/15/19 23:59 23:59 23:59 Intake Total 1230 / 1230 1090 / 1090 240 / 240 Output Total 1735 / 1735 900 / 900 200 / 200 Balance -505 / -505 190 / 190 40 / 40 Microbiology Past 72 Hours 08/10/19 18:00 Sputum, Expectorated/Coughed Gram Stain - Final 08/10/19 18:00 Sputum, Expectorated/Coughed Respiratory Culture - Final Presumptive C albicans Laboratory Results 08/14/19 14:52: POC Glucose 257 H 08/14/19 17:08: POC Glucose 212 H 08/14/19 22:17: POC Glucose 231 H 08/15/19 06:32: POC Glucose 167 H Current Medications Acetaminophen (Tylenol) 650 mg PO Q6H PRN PRN PRN Reason: Pain Score 1-10/Temp > 100.7 F Last Admin: 08/14/19 10:17 Dose: 650 mg Documented by: Al Hydroxide/Mg Hydroxide (Mylanta Ii) 30 ml PO Q6H PRN PRN PRN Reason: Gastric Burning Albuterol/Ipratropium (Duoneb) 3 ml INHALATION Q4HWA.RT [facility] Last Admin: 08/15/19 11:12 Dose: 3 ml Documented by: Apixaban (Eliquis) 2.5 mg PO BID [facility] Last Admin: 08/15/19 09:59 Dose: 2.5 mg Documented by: Aspirin (Aspirin, Baby) 81 mg PO DAILY@0800 [facility] Last Admin: 08/15/19 09:59 Dose: 81 mg Documented by: Atorvastatin Calcium (Lipitor) 20 mg PO QHS [facility] Last Admin: 08/14/19 22:10 Dose: 20 mg Documented by: Bacitracin/Polymyxin B Sulfate (Polysporin Ointment) 1 applic TOPICAL BID [facility]; Protocol Last Admin: 08/15/19 10:00 Dose: 1 applicatio Documented by: Calamine/Phenol (Calmoseptine Ointment) 1 applic TOPICAL 0600,2200 [facility]; Protocol Last Admin: 08/15/19 06:34 Dose: 1 applicatio Documented by: Cholecalciferol (Vitamin D (25mcg)) 1,000 unit PO DAILY [facility] Last Admin: 08/15/19 09:59 Dose: 1,000 unit Documented by: Furosemide (Lasix) 40 mg PO DAILY [facility] Last Admin: 08/15/19 10:00 Dose: 40 mg Documented by: Glucagon () 1 mg IM .X1 PRN PRN Reason: Hypoglycemia Guaifenesin (Robitussin) 20 ml PO Q4H PRN PRN PRN Reason: COUGH Dextrose (Dextrose 10%-Water) 250 mls @ 999 mls/hr IV .Q16M PRN; Protocol PRN Reason: HYPOGLYCEMIA Last Infusion: 08/11/19 01:52 Dose: Infused Documented by: Sodium Chloride () 250 mls @ 15 mls/hr IV .[id number] PRN PRN Reason: Saline Flush Sodium Chloride () 250 mls @ 15 mls/hr IV .[id number] PRN PRN Reason: Additional IVPB Infusion Insulin Human Lispro (Humalog Kwikpen (Bkc)) 0 unit SC ACHS [facility]; Protocol Last Admin: 08/15/19 11:22 Dose: 1 u Documented by: Metoprolol Tartrate (Lopressor (Beta Lucina)) 25 mg PO BID [facility] Last Admin: 08/15/19 09:59 Dose: 25 mg Documented by: Mirtazapine (Remeron) 7.5 mg PO QHS [facility] Last Admin: 08/14/19 22:09 Dose: 7.5 mg Documented by: Morphine Sulfate () 2 mg IV Q3H PRN PRN PRN Reason: Pain Score 6-10/10 Multi-Ingredient Cream (Eucerin) 1 applic TOPICAL 2200 [facility]; Protocol Last Admin: 08/14/19 22:07 Dose: 1 applicatio Documented by: Nitroglycerin (Nitrostat) 0.4 mg SUBLINGUAL Q5M PRN PRN Reason: CARDIAC/CHEST PAIN Nutritional Formula (Lactose Free) (Glucerna Shake) 120 ml PO 4X/DAY [facility] Last Admin: 08/15/19 09:57 Dose: Not Given Documented by: Nystatin (Mycostatin Powder) 1 applic TOPICAL 0600,2200 [facility]; Protocol Last Admin: 08/15/19 06:34 Dose: 1 applicatio Documented by: Ondansetron HCl (Zofran) 4 mg IV Q8H PRN PRN PRN Reason: NAUSEA/VOMITING Oxycodone HCl (Oxyir) 5 mg PO Q4H PRN PRN PRN Reason: Pain Score 4-5/10 Last Admin: 08/12/19 21:51 Dose: 5 mg Documented by: Pantoprazole Sodium (Protonix) 40 mg PO DAILY [facility] Last Admin: 08/15/19 09:59 Dose: 40 mg Documented by: Polyethylene Glycol (Miralax) 17 gm PO DAILY [facility] Last Admin: 08/15/19 09:56 Dose: Not Given Documented by: Polysaccharide Iron Complex (Ferrex 150) [facility] Last Admin: 08/15/19 10:00 Dose: 150 mg Documented by: Prochlorperazine Edisylate (Compazine Iv) 5 mg IV Q4H PRN PRN PRN Reason: Breakthrough Nausea/Vomiting Senna/Docusate Sodium (Senokot-S, Rachel-Colace) 1 tablet PO BID [facility] Last Admin: 08/15/19 09:56 Dose: Not Given Documented by: Sodium Chloride () 10 - 40 ml IV UD PRN PRN Reason: SALINE FLUSH Last Admin: 08/12/19 12:02 Dose: 10 ml Documented by: Throat Lozenges (Cepacol Sore Throat Lozenge) 1 lozenge MUCOUS MEM Q2H PRN PRN PRN Reason: SORE THROAT Trazodone HCl (Desyrel) 50 mg PO QHS [facility] Last Admin: 08/14/19 22:06 Dose: 50 mg Documented by: Discharge Diet: Low fat/ Low Cholesterol, 2000 mg Sodium Diet Discharge Activity: Return to Normal Activity Home Medications: Medications to take at Discharge Alendronate Sodium 70 mg PO ELIZONDO 06/16/19 Ipratropium/Albuterol Sulfate [Duoneb] 3 ml INHALATION Q6H PRN PRN 06/16/19 Metoprolol Tartrate 25 mg PO BID 06/16/19 Simvastatin 40 mg PO QHS 06/16/19 traZODone [Desyrel] 50 mg PO QHS 06/16/19 Apixaban [Eliquis] 2.5 mg PO BID #60 tab 07/29/19 Cholecalciferol (VIT D3) [Vitamin D3] 1,000 unit PO DAILY tab 07/29/19 Iron Polysaccharide Complex [Ferrex 150] 150 mg PO DAILYCM #30 cap 07/29/19 Menthol/Lanolin/Calamine/Znox [Calmoseptine Ointment] 1 applic TOPICAL 0600,2200 tube 07/29/19 Mineral Oil/Petrolatum,White [Eucerin] 1 applic TOPICAL 2200 jar 07/29/19 Mirtazapine [Remeron] 7.5 mg PO QHS #30 tab 07/29/19 Nystatin Powder [Mycostatin Powder] 1 applic TOPICAL 0600,2200 bottle 07/29/19 Pantoprazole Sodium [Protonix] 40 mg PO DAILY #30 tab 07/29/19 Polyethylene Glycol 3350 [Miralax] 17 gm PO DAILY #30 packet 07/29/19 Senna/Docusate Sodium [Senokot-S] 1 tab PO BID #60 tab 07/29/19 Albuterol Aerosols [Ventolin Aerosols] 2.5 mg INHALATION Q2H PRN PRN 08/10/19 Acetaminophen [Tylenol Tablet] 650 mg PO Q6H PRN PRN tab 08/15/19 Furosemide [Lasix] 40 mg PO DAILY tab 08/15/19 Glimepiride [Amaryl] 1 mg PO DAILY 30 Days #30 tab 08/15/19 Glucerna Shake 120 ml PO 4X/DAY liquid 08/15/19 Guaifenesin [Robitussin] 20 ml PO Q4H PRN PRN udc 08/15/19 Following Prescrptions Were Given to Patient: Glimepiride [Amaryl] 1 mg PO DAILY 30 Days #30 tab Primary Care Physician: Fam Nieves Chi, MD [Primary Care Provider] - Please follow up with your Primary Care Physician in: within 1-2 weeks Disposition: Detention facility Minutes spent on discharge:: 45 Patient Condition:: Fair Medical Necessity - Tobacco Use Smoking Status: Never smoker Tobacco Use: Non-smoker Meaningful Use Info Meaningful Use Diagnoses (Choose all that apply): CHF - CHF OPAL/ARB ordered at discharge?: No Reason OPAL/ARB not ordered?: Worsening renal disease Documented LVEF (%): 65 Inpatient E&M: 99361 Disch Hosp
--- NOTE | 2019-08-15 11:45 | PHA.DC.MR ---
Pharmacy Service has performed discharge medication reconciliation for this patient. The patient's discharge medication list was reviewed for discrepancies and discrepancies were resolved. Home Medications Alendronate Sodium 70 mg PO ELIZONDO 06/16/19 Ipratropium/Albuterol Sulfate [Duoneb] 3 ml INHALATION Q6H PRN PRN 06/16/19 Metoprolol Tartrate 25 mg PO BID 06/16/19 Simvastatin 40 mg PO QHS 06/16/19 traZODone [Desyrel] 50 mg PO QHS 06/16/19 Apixaban [Eliquis] 2.5 mg PO BID #60 tab 07/29/19 Cholecalciferol (VIT D3) [Vitamin D3] 1,000 unit PO DAILY tab 07/29/19 Iron Polysaccharide Complex [Ferrex 150] 150 mg PO DAILYCM #30 cap 07/29/19 Menthol/Lanolin/Calamine/Znox [Calmoseptine Ointment] 1 applic TOPICAL 0600,2200 tube 07/29/19 Mineral Oil/Petrolatum,White [Eucerin] 1 applic TOPICAL 2200 jar 07/29/19 Mirtazapine [Remeron] 7.5 mg PO QHS #30 tab 07/29/19 Nystatin Powder [Mycostatin Powder] 1 applic TOPICAL 0600,2200 bottle 07/29/19 Pantoprazole Sodium [Protonix] 40 mg PO DAILY #30 tab 07/29/19 Polyethylene Glycol 3350 [Miralax] 17 gm PO DAILY #30 packet 07/29/19 Senna/Docusate Sodium [Senokot-S] 1 tab PO BID #60 tab 07/29/19 Albuterol Aerosols [Ventolin Aerosols] 2.5 mg INHALATION Q2H PRN PRN 08/10/19 Acetaminophen [Tylenol Tablet] 650 mg PO Q6H PRN PRN tab 08/15/19 Furosemide [Lasix] 40 mg PO DAILY tab 08/15/19 Glimepiride [Amaryl] 1 mg PO DAILY 30 Days #30 tab 08/15/19 Glucerna Shake 120 ml PO 4X/DAY liquid 08/15/19 Guaifenesin [Robitussin] 20 ml PO Q4H PRN PRN udc 08/15/19
[2019-08-15 12:01] LABS: Absolute Lymphocyte Count 0.97 X10^3/uL (0.83-4.51); Absolute Neutrophil Count 7.7 X10^3/uL (2.0-7.7); Basophil# 0.02 X10^3/uL; Basophil% 0.2 % (0-1); Eosinophil# 0.12 X10^3/uL; Eosinophils% 1.2 % (0-5); Hematocrit 29.4 % (37-47); Hemoglobin 8.8 g/dL (12.0-15.0); Lymphocyte # 0.97 X10^3/ul (4.0); Mean Corp Hgb Conc 29.9 g/dL (32-36); Mean Corpuscular Hgb 29.9 pg (27.0-32.0); Mean Platelet Vol. 9.9 fl (6.2-12.0); Monocyte# 0.81 X10^3/uL; Monocyte% 8.4 % (0-10); NRBC Flagged by Analyzer 0 % (0-5); Neutrophil # 7.72 X10^3/uL (2.7-7.7); Neutrophil % 79.7 % (47-70); Platelet Count 180 K/mm3 (150-450); RBC Distribution Width CV 17.1 % (11.6-14.6); RBC Distribution Width SD 62.4 fl (35.1-43.9); Red Blood Count 2.94 M/mm3 (4.2-5.4); White Blood Count 9.7 K/mm3 (4.4-11.0)
--- NOTE | 2019-08-15 12:03 | PCM.PN.PUL ---
Patient Problems: Active and Suspected Problems (Last Reviewed 07/15/19 @ 13:20 by Alessandra Valdivia) Hypoglycemia (Acute) CHF exacerbation (Acute) Pneumonia (Acute) Encephalopathy acute (Acute) Subjective: Patient did well overnight. No acute issues were reported. Patient states she feels that she is back to her baseline. Patient is still requiring minimal nasal cannula oxygen with sleep, but doing well during the day. Tolerating p.o. diet. - Physical Exam Vitals/I&O's: Vital Signs Temp Pulse Resp BP Pulse Ox 36.9 C 98 20 H 109/71 95 08/15/19 10:02 08/15/19 11:12 08/15/19 11:12 08/15/19 10:02 08/15/19 11:15 Oxygen Flow Rate (L/min) 3 Oxygen Delivery Method Nasal Cannula Weight: 100.1 kg Body Mass Index (BMI) 43.4 Finger Stick Blood Glucose 62 Intake and Output for Last 24 Hours 08/13/19 08/14/19 08/15/19 23:59 23:59 23:59 Intake Total 1230 / 1230 1090 / 1090 240 / 240 Output Total 1735 / 1735 900 / 900 200 / 200 Balance -505 / -505 190 / 190 40 / 40 General: Alert, Oriented x3, Cooperative, - - Morbidly obese. No conversational dyspnea noted. HEENT: Atraumatic, PERRLA, EOMI, Normocephalic, - - No scleral icterus or injection noted Oral: Moist Mucosa, No Gingival or Mucosal Lesions/ Ulcerations Neck: Supple, No Nodes, Trachea Midline, JVD, Right Lungs: No rhonchi, No rales, Diminished, Wheezes - Sporadic at end exhalation Cardiovascular: Normal S1, Normal S2, Irregular Rate, Murmur, No rub noted, No Gallop Abdomen: Bowel Sounds Present, Soft, Non Tender, Non-Distended, Obese Extremities: No clubbing, No cyanosis, Capillary Refill Less than 3 Seconds, Edema Skin: No rashes, No breakdown Musculoskeletal: No Tenderness to Palpation of Joints or Extremities Lymphatic: No Cervical, Supraclavicular, or Inguinal Adenopathy Neurological: Cranial nerves II-XII grossly intact, Neuro grossly intact, Motor Exam 5/5 strength throughout Psych/Mental Status: Alert and oriented to time, place, person, mood and affect Microbiology Past 72 Hours 08/10/19 18:00 Sputum, Expectorated/Coughed Gram Stain - Final 08/10/19 18:00 Sputum, Expectorated/Coughed Respiratory Culture - Final Presumptive C albicans Laboratory Results 08/14/19 14:52: POC Glucose 257 H 08/14/19 17:08: POC Glucose 212 H 08/14/19 22:17: POC Glucose 231 H 08/15/19 06:32: POC Glucose 167 H 08/15/19 11:48: WBC 9.7, RBC 2.94 L, Hgb 8.8 L, Hct 29.4 L, MCV 100.0 H, MCH 29.9, MCHC 29.9 L, RDW Std Deviation 62.4 H, RDW Coeff of Alicia 17.1 H, Plt Count 180, MPV 9.9, Immature Gran % (Auto) 0.500, Neut % (Auto) 79.7 H, Lymph % (Auto) 10.0 L, Pine % (Auto) 8.4, Eos % (Auto) 1.2, Baso % (Auto) 0.2, Absolute Neuts (auto) 7.7, Absolute Lymphs (auto) 0.97, Nucleated RBC % 0 08/15/19 11:48: Sodium Pending, Potassium Pending, Chloride Pending, Carbon Dioxide Pending, Anion Gap Pending, BUN Pending, Creatinine Pending, Est GFR (MDRD) Af Amer Pending, Est GFR (MDRD) Non-Af Pending, BUN/Creatinine Ratio Pending, Glucose Pending, Calcium Pending, Total Bilirubin Pending, AST Pending, ALT Pending, Alkaline Phosphatase Pending, Total Protein Pending, Albumin Pending Current Medications Acetaminophen (Tylenol) 650 mg PO Q6H PRN PRN PRN Reason: Pain Score 1-10/Temp > 100.7 F Last Admin: 08/14/19 10:17 Dose: 650 mg Documented by: Al Hydroxide/Mg Hydroxide (Mylanta Ii) 30 ml PO Q6H PRN PRN PRN Reason: Gastric Burning Albuterol/Ipratropium (Duoneb) 3 ml INHALATION Q4HWA.RT NABIL Last Admin: 08/15/19 11:12 Dose: 3 ml Documented by: Apixaban (Eliquis) 2.5 mg PO BID [facility] Last Admin: 08/15/19 09:59 Dose: 2.5 mg Documented by: Aspirin (Aspirin, Baby) 81 mg PO DAILY@0800 [facility] Last Admin: 08/15/19 09:59 Dose: 81 mg Documented by: Atorvastatin Calcium (Lipitor) 20 mg PO QHS [facility] Last Admin: 08/14/19 22:10 Dose: 20 mg Documented by: Bacitracin/Polymyxin B Sulfate (Polysporin Ointment) 1 applic TOPICAL BID [facility]; Protocol Last Admin: 08/15/19 10:00 Dose: 1 applicatio Documented by: Calamine/Phenol (Calmoseptine Ointment) 1 applic TOPICAL 0600,2200 [facility]; Protocol Last Admin: 08/15/19 06:34 Dose: 1 applicatio Documented by: Cholecalciferol (Vitamin D (25mcg)) 1,000 unit PO DAILY [facility] Last Admin: 08/15/19 09:59 Dose: 1,000 unit Documented by: Furosemide (Lasix) 40 mg PO DAILY [facility] Last Admin: 08/15/19 10:00 Dose: 40 mg Documented by: Glucagon () 1 mg IM .X1 PRN PRN Reason: Hypoglycemia Guaifenesin (Robitussin) 20 ml PO Q4H PRN PRN PRN Reason: COUGH Dextrose (Dextrose 10%-Water) 250 mls @ 999 mls/hr IV .Q16M PRN; Protocol PRN Reason: HYPOGLYCEMIA Last Infusion: 08/11/19 01:52 Dose: Infused Documented by: Sodium Chloride () 250 mls @ 15 mls/hr IV .[id number] PRN PRN Reason: Saline Flush Sodium Chloride () 250 mls @ 15 mls/hr IV .[id number] PRN PRN Reason: Additional IVPB Infusion Insulin Human Lispro (Humalog Kwikpen (Bkc)) 0 unit SC ACHS [facility]; Protocol Last Admin: 08/15/19 11:22 Dose: 1 u Documented by: Metoprolol Tartrate (Lopressor (Beta Lucina)) 25 mg PO BID [facility] Last Admin: 08/15/19 09:59 Dose: 25 mg Documented by: Mirtazapine (Remeron) 7.5 mg PO QHS [facility] Last Admin: 08/14/19 22:09 Dose: 7.5 mg Documented by: Morphine Sulfate () 2 mg IV Q3H PRN PRN PRN Reason: Pain Score 6-10/10 Multi-Ingredient Cream (Eucerin) 1 applic TOPICAL 2199 [facility]; Protocol Last Admin: 08/14/19 22:07 Dose: 1 applicatio Documented by: Nitroglycerin (Nitrostat) 0.4 mg SUBLINGUAL Q5M PRN PRN Reason: CARDIAC/CHEST PAIN Nutritional Formula (Lactose Free) (Glucerna Shake) 120 ml PO 4X/DAY [facility] Last Admin: 08/15/19 09:57 Dose: Not Given Documented by: Nystatin (Mycostatin Powder) 1 applic TOPICAL 0600,2200 [facility]; Protocol Last Admin: 08/15/19 06:34 Dose: 1 applicatio Documented by: Ondansetron HCl (Zofran) 4 mg IV Q8H PRN PRN PRN Reason: NAUSEA/VOMITING Oxycodone HCl (Oxyir) 5 mg PO Q4H PRN PRN PRN Reason: Pain Score 4-5/10 Last Admin: 08/12/19 21:51 Dose: 5 mg Documented by: Pantoprazole Sodium (Protonix) 40 mg PO DAILY [facility] Last Admin: 08/15/19 09:59 Dose: 40 mg Documented by: Polyethylene Glycol (Miralax) 17 gm PO DAILY [facility] Last Admin: 08/15/19 09:56 Dose: Not Given Documented by: [facility]ysaccharide [facility] 150[facility] Last Admin: 08/15/19 10:00 Dose: 150 mg Documented by: Prochlorperazine Edisylate (Compazine Iv) 5 mg IV Q4H PRN PRN PRN Reason: Breakthrough Nausea/Vomiting Senna/Docusate Sodium (Senokot-S, Rachel-Colace) 1 tablet PO BID [facility] Last Admin: 08/15/19 09:56 Dose: Not Given Documented by: Sodium Chloride () 10 - 40 ml IV UD PRN PRN Reason: SALINE FLUSH Last Admin: 08/12/19 12:02 Dose: 10 ml Documented by: Throat Lozenges (Cepacol Sore Throat Lozenge) 1 lozenge MUCOUS MEM Q2H PRN PRN PRN Reason: SORE THROAT Trazodone HCl (Desyrel) 50 mg PO QHS [facility] Last Admin: 08/14/19 22:06 Dose: 50 mg Documented by: Medical Necessity - Tobacco Use Smoking Status: Never smoker Tobacco Use: Non-smoker Assessment/Plan All Active Problems (Last Reviewed 07/15/19 @ 13:20 by Alessandra Valdivia) Hypoglycemia (Acute) CHF exacerbation (Acute) Pneumonia (Acute) Encephalopathy acute (Acute) Cardiogenic shock (Acute) Bradycardia (Acute) Renal failure (ARF), acute on chronic (Acute) Acute hyperkalemia (Acute) Debility (Acute) Unresponsiveness (Resolved) History of respiratory failure with hypo (Resolved) Anemia (Ruled-out) RECOMMENDATIONS: 1. Continue BiPAP at night 2. Increase activity as tolerated 3. Empiric antibiotics and Tamiflu for a total of 5 days. 4. Wean oxygen as tolerated 5. Okay to transfer to [facility] from my perspective 6. Aggressive PT/OT given frequent hospitalization IMPRESSIONS: 1. Acute hypoxic respiratory failure secondary to acute diastolic CHF exacerbation Care complicated by concomitant hypoglycemia and need for D10 drip initially. Patient was significant diuresis over the last 24 hours, but oxygenation is much improved. Blood pressure was an issue previously secondary to diuresis. No issues overnight with blood pressure. Patient does have severe mixed ventilatory defects on recent PFT, which also complicates management. Can use BiPAP with sleep. Complicated by concomitant influenza infection. Patient is on Tamiflu. Would treat for total of 5 days 2. COPD exacerbation secondary to influenza A Patient does have a protracted hospital course and will be at risk for resistant organisms. Patient currently hemodynamically stable. Unclear how much of patient's mental status is secondary to hypoglycemia versus severe sepsis. Would hold on fluid boluses given cardiac history and clinically overloaded status. Patient is a full code and can be intubated if necessary. 3. Hypoglycemia Unclear etiology. Resolved. Some concern for decreased excretion of Amaryl. Patient is on Amaryl as an outpatient. Okay to transition to as needed blood checks from my perspective (every 6 versus q. AC/at bedtime pending p.o. intake) with low-dose sliding scale 4. Acute metabolic encephalopathy Clinical suspicion for an element of diagnoses 1, 2 and 3 leading to mental status. Would recommend delirium protocol. 5. CKD stage IV/hypertension/hyperlipidemia/anxiety/depression/paroxysmal A. fib/advanced age Complicates care, management, recovery and prognosis. Watch blood pressure closely. We will continue with metoprolol for rate control. Apply antibacterial to labial excoriations. Avoid benzodiazepines if possible. Haldol as necessary for agitation. Inpatient E&M: 20485 Subs Hosp L2
[2019-08-15 12:16] LABS: Bedside Glucose 173 mg/dL (70-110)
--- NOTE | 2019-08-15 12:16 | CASEMGMT ---
Patient is ready for d/c to [facility] today. SW called [facility] and updated Lorraine. SW asked if they could come and pick patient up. They would be able to do this at 3p. SW notified patient and left a message for her daughter per patient's request. They will bring a portable O2 tank. SW faxed orders to [facility] and completed convalescent on [facility]. Plan: [facility] under skilled level of care on a convalescent stay. [facility] transported via their van. Kasey MERCEDES MSW
[2019-08-15 12:28] LABS: ALB/GLOB Ratio 0.5 RATIO (0.9-2.4); AST(SGOT) 18 U/L (15-37); Alanine Aminotransfer ALT/SGPT 10 U/L (13-56); Albumin, Serum 2.3 g/dL (3.2-5.0); Alkaline Phosphatase 115 U/L (45-117); Anion Gap 2 (5-15); BUN 26 mg/dL (7-18); Calcium,Total 8.9 mg/dL (8.5-10.1); Chloride 98 mmol/L (98-107); Creatinine, Serum 1.04 mg/dL (0.55-1.02); EST Glomerular Filtration Rate 54 mL/min (>60); Est Glom Filt Rate - Afr Amer 66 mL/min (>60); Globulin 4.7 g/dL (2.2-4.2); Glucose 207 mg/dL (74-106); Potassium 3.6 mmol/L (3.5-5.1); Sodium Level 138 mmol/L (136-145)
--- NOTE | 2019-08-15 13:25 | NURSING ---
report called to [facility].
== END 2019-08-15 15:15 | disposition skilled nursing facility (03) | DRG 193 ==
LOC: ED 19:52 → ICU 08-11 07:13 → PCU 08-14 11:09
PROVIDERS: Internal Medicine Critical Care Medicine; Admitting Provider Family Medicine; Emergency Provider Emergency Medicine; PCP Family Medicine Geriatric Medicine; Visit Provider Internal Medicine
DX: J10.00 Influenza due to other identified influenza virus with unspecified type of pneumonia (principal); I50.33 Acute on chronic diastolic (congestive) heart failure; G93.41 Metabolic encephalopathy; I13.0 Hypertensive heart and chronic kidney disease with heart failure and stage 1 through stage 4 chronic kidney disease, or unspecified chronic kidney disease; N18.4 Chronic kidney disease, stage 4 (severe); Z68.41 Body mass index [BMI] 40.0-44.9, adult; J44.0 Chronic obstructive pulmonary disease with (acute) lower respiratory infection; R06.89 Other abnormalities of breathing; R09.02 Hypoxemia; E11.649 Type 2 diabetes mellitus with hypoglycemia without coma; J10.1 Influenza due to other identified influenza virus with other respiratory manifestations; E11.22 Type 2 diabetes mellitus with diabetic chronic kidney disease; E78.5 Hyperlipidemia, unspecified; I48.0 Paroxysmal atrial fibrillation; K21.9 Gastro-esophageal reflux disease without esophagitis; F32.9 Major depressive disorder, single episode, unspecified; F41.9 Anxiety disorder, unspecified; E66.01 Morbid (severe) obesity due to excess calories; Z79.84 Long term (current) use of oral hypoglycemic drugs; Z79.01 Long term (current) use of anticoagulants; D64.9 Anemia, unspecified; I49.5 Sick sinus syndrome; M81.0 Age-related osteoporosis without current pathological fracture
CPT/HCPCS: 36415; 71045; 80048; 80053; 80076; 81001; 82962; 83036; 83605; 83735; 83880; 84443; 84484; 85025; 87070; 87205; 87449; 87633; 87641; 93005; 94002; 94003; 94640; 94667; 94668; 97110; 97116; 97163; 97167; 97530; 97535; 97802; 99251; 99285; J7040; J7120; A4216; G0463; J1610; J1940

== ENCOUNTER 2019-08-20 13:38 | Inpatient (IN) | payer MEDICARE, OTHER, BC, SELFPAY ==
[2019-08-10 21:38] VITALS: BMI 43.4
[2019-08-20] VITALS (21 sets, daily range): BP systolic 82–153; BP diastolic 46–96; PULSE 65–129; RESP 16–26; TEMP 36.3–36.8; O2SAT 86–100; BMI 42.9; BMI 42.1; BMI 42.2
--- NOTE | 2019-08-20 13:43 | EKG12_ITS ---
Test Reason : SOB Blood Pressure : / mmHG Vent. Rate : 123 BPM Atrial Rate : 141 BPM P-R Int : 000 ms QRS Dur : 076 ms QT Int : 272 ms P-R-T Axes : 000 076 037 degrees QTc Int : 389 ms Atrial fibrillation with rapid ventricular response Nonspecific T wave abnormality Abnormal ECG Confirmed by HERMINIA CUI, TRINO ([id number]), editor book BRITTNEY JACQUES ([id number]) on 08/21/2019 1:41:02 PM Referred By: ARELY Confirmed By:TRINO HOPE MD
[2019-08-20 14:30] LABS: Absolute Lymphocyte Count 0.85 X10^3/uL (0.83-4.51); Absolute Neutrophil Count 8.4 X10^3/uL (2.0-7.7); Basophil# 0.03 X10^3/uL; Basophil% 0.3 % (0-1); Eosinophil# 0.15 X10^3/uL; Eosinophils% 1.5 % (0-5); Hematocrit 28.9 % (37-47); Hemoglobin 8.6 g/dL (12.0-15.0); Lymphocyte # 0.85 X10^3/ul (4.0); Lymphocyte % 8.3 % (19-41); Mean Corp Hgb Conc 29.8 g/dL (32-36); Mean Corpuscular Volume 100.7 fL (81-99); Mean Platelet Vol. 10.8 fl (6.2-12.0); Monocyte# 0.79 X10^3/uL; Monocyte% 7.7 % (0-10); NRBC Flagged by Analyzer 0 % (0-5); Neutrophil # 8.39 X10^3/uL (2.7-7.7); Neutrophil % 81.8 % (47-70); Platelet Count 240 K/mm3 (150-450); RBC Distribution Width SD 63.5 fl (35.1-43.9); Red Blood Count 2.87 M/mm3 (4.2-5.4); White Blood Count 10.3 K/mm3 (4.4-11.0)
[2019-08-20 14:33] LABS: International Normalized Ratio 1.7; Prothrombin Time (Protime)PT. 19.4 SECONDS (11.7-14.9)
[2019-08-20 14:34] LABS: Partial Thromboplast Time 37.2 Seconds (24.1-36.2)
[2019-08-20 14:40] LABS: ALB/GLOB Ratio 0.6 RATIO (0.9-2.4); AST(SGOT) 18 U/L (15-37); Alanine Aminotransfer ALT/SGPT 13 U/L (13-56); Albumin, Serum 2.6 g/dL (3.2-5.0); Alkaline Phosphatase 127 U/L (45-117); Anion Gap 2 (5-15); BUN 40 mg/dL (7-18); BUN/Creat Ratio 32.5 RATIO (10-20); Chloride 97 mmol/L (98-107); Creatinine, Serum 1.23 mg/dL (0.55-1.02); EST Glomerular Filtration Rate 45 mL/min (>60); Est Glom Filt Rate - Afr Amer 54 mL/min (>60); Estimated Creatinine Clearance 27.99 ml/min; Globulin 4.6 g/dL (2.2-4.2); Glucose 215 mg/dL (74-106); Potassium 3.7 mmol/L (3.5-5.1); Protein, Total 7.2 g/dL (6.4-8.2); Sodium Level 140 mmol/L (136-145)
[2019-08-20 14:44] LABS: Mucous, Urine 0 SEEN /hpf (<or=2+); Red Blood Cells-Urine 0 SEEN /hpf (0-5); Squamous Epithelial Cells - UA 0 SEEN /hpf (5-10); White Blood Cells 0 SEEN /hpf (0-5)
--- NOTE | 2019-08-20 14:45 | RAD_ITS ---
STUDY: X-RAY CHEST REASON FOR EXAM: Female, 78 years old. COUGH, SOB; -- COPD, RECENT PNEUMONIA; -- STAGE 4 KIDNEY CA TECHNIQUE: Single AP portable view of the chest. COMPARISON: Comparison is made with prior study dated August 11, 2019. FINDINGS: EKG electrodes are seen. Since prior study, there has been progressive infiltration in the right lower lobe. There is no demonstrated pleural abnormality. There is mild cardiac enlargement. Normal mediastinum and analisa. Normal visualized pulmonary arteries. There is atherosclerotic calcification of the aortic arch with tortuosity. There are degenerative changes of the visualized thoracic spine. There is degenerative osteoarthritis of the bilateral shoulders. There is no demonstrated abnormality of the visualized soft tissue structures of the upper abdomen. RAD/Chest 1 View (Portable) IMPRESSION: Progressive right lower lobe infiltrate. Electronically Signed: Yonatan Howe, at 15:17 EDT , Service support ,
[2019-08-20 14:48] LABS: Lactic Acid 2.4 mmol/L (0.4-1.9)
[2019-08-20 14:50] LABS: Color, Urine Yellow (Yellow); Glucose, Dipstick Normal (Normal); Ketone-Dipstick Negative (Negative); Leukocyte Esterase-Dipstick Negative /ul (Negative); Nitrite-Dipstick Positive (Negative); Occult Blood-Urine Negative /ul (Negative); Protein-Dipstick 15 mg/dl (Negative); Urine Bilirubin Dipstick Negative (Negative); Urine Clarity Clear (Clear); Urine Urobilinogen Normal (Normal)
[2019-08-20 14:58] LABS: BNP,B-Type NATRIURETIC PEPTIDE 1063.9 pg/mL (0-100)
[2019-08-20 15:18] LABS: Bacteria 4+ /hpf (None Seen)
--- NOTE | 2019-08-20 15:35 | ED.DCSUM_ITS ---
- ER Visit Summary Date of Service: 08/20/19 Chief Complaint: Shortness of breath and cough History of Present Illness: The patient is a 78 F who presents from her nursing facility for shortness of breath and cough. She was admitted from August 09 through August 14 for hypotension, hypoglycemia, encephalopathy, hypoxia, CHF, pneumonia, and influenza A. She was discharged from the hospital and went to the nursing facility. She has had increasing shortness of breath and cough since placement there. Nursing called today because she had an elevated heart rate and respiratory rate. She has a history of A. fib and takes Eliquis. Full code. Physical Examination: Afebrile and vital signs unremarkable except for heart rate of 112 and respiratory rate of 26. She was 100% on nasal cannula. She appeared in no acute distress. She does exhibit a dry cough, but is breathing objectively comfortably. Heart is irregularly irregular. Lungs are diminished. He does have symmetric lower extremity edema, nontender. Skin unremarkable. Test Results: EKG showed atrial fibrillation at a rate of 123. Hemoglobin 8.6. Chloride 97, CO2 41, glucose 215, BUN 40, creatinine 1.23. Alkaline phosphatase 127. Coags normal. Urinalysis unremarkable except for nitrite positive. Troponin normal. BNP 1063. Lactate 2.4. Cultures pending. Influenza test negative. Chest x-ray showed a progressive right lower lobe infiltrate. Emergency Department Course and Treatment: Patient had coronavirus precautions. IV, oxygen, monitor placed. She does meet criteria for severe sepsis and has a progressive right lower lobe infiltrate. She was treated with aztreonam and vancomycin. She does have an allergy to penicillins. She is hemodynamically stable but tachycardic, and remains in atrial fibrillation. She was treated wit h 20 of [facility]. Patient will be discussed with the hospitalist for admission. Treatment Plan: As above Disposition: Admission Impression: Healthcare associated pneumonia, suspected covert 19 infection, severe sepsis, atrial fibrillation with RVR This note was generated with [employer] dictation software. It may contain incorrect words, spelling, and punctuation that were not noted in review of the chart prior to signing ED Disposition - Plan for ED Patient: Referrals: Fam Nieves Chi, MD [Primary Care Provider] -
--- NOTE | 2019-08-20 15:47 | NURSING ---
ICU HCAP, SEVERE SEPSIS, SUSPECTED COVID 19, AFIB WHITE
--- NOTE | 2019-08-20 15:51 | HP.PCM_ITS ---
Problem List (1) Severe sepsis Status: Acute (2) Atrial fibrillation with RVR Status: Acute (3) HCAP (healthcare-associated pneumonia) Status: Acute (4) CHF (congestive heart failure) Status: Chronic Qualifiers: Heart failure type: diastolic Heart failure chronicity: chronic Qualified Code(s): I50.32 - Chronic diastolic (congestive) heart failure (5) CKD (chronic kidney disease), stage IV Status: Chronic (6) Anxiety and depression Status: Chronic (7) Sick sinus syndrome Status: Chronic (8) Essential hypertension Status: Chronic (9) DM2 (diabetes mellitus, type 2) Status: Chronic Qualifiers: Diabetes mellitus residential insulin use: with residential use Diabetes mellitus complication status: with other specified complication Qualified Code(s): E11.69 - Type 2 diabetes mellitus with other specified complication; Z79.4 - ad terminal makeup operator (current) use of insulin (10) COPD (chronic obstructive pulmonary disease) Status: Chronic Qualifiers: COPD type: unspecified COPD Qualified Code(s): J44.9 - Chronic obstructive pulmonary disease, unspecified (11) GERD (gastroesophageal reflux disease) Status: Chronic Qualifiers: Esophagitis presence: esophagitis presence not specified Qualified Code(s): K21.9 - Gastro-esophageal reflux disease without esophagitis (12) GERD (gastroesophageal reflux disease) Status: Chronic Qualifiers: Esophagitis presence: esophagitis presence not specified Qualified Code(s): K21.9 - Gastro-esophageal reflux disease without esophagitis (13) Hyperlipidemia Status: Chronic Qualifiers: Hyperlipidemia type: unspecified Qualified Code(s): E78.5 - Hyperlipidemia, unspecified History of Present Illness Date of Admission: 08/20/19 Chief Complaint: Cough, dyspnea The patient is a 78 y/o F w PMHx: CKD stage IV, PAF on apixaban, HTN, HLD, GERD, Chronic COPD, Hx Sick sinus syndrome, Diabetes mellitus type II, several recent hospitalizations with each SNF transition including complicated UTI with associated CARLENE on chronic kidney disease secondary to ATN with septic shock as well as cardiogenic shock with bacteremia as well as CHF exacerbation, hypoglycemia and influenza A with hypoxia who now re-presents to the [facility] ED on 08/20/19 with history of progressive decline with significantly worsening dyspnea as well as productive cough, fatigue, malaise and significant palpitations over the last several days with progressively increasing heart rate prompting transition for evaluation. Work-up in the ED included T 97.7, heart rate initially 129 but fluctuated up to the 140s, BP 153/82, respiratory rate 26, 100% on 2 L nasal cannula, see with WC 10.3, hemoglobin 8.6, platelet 240 with left shift, coags with PT 19.4, INR 1.7, PTT 37.2, CMP with sodium 140, potassium 3.7, chloride 97, complex at 41, BUN/creatinine 40/1.23, glucose 215, lactic acid 2.4, alk phos 127, troponin 0 0.043, BNP 1063.9, UA with specific [place] 1.010, protein 15, positive nitrite, negative leukocyte Estrace, 0 WBCs and 0 RBCs however noting 4+ urine bacteria, blood culture x2 and urine culture x1 pending per ED, rapid influenza negative, EKG with atrial fibrillation with RVR, chest x-ray with progressive right lower lobe infiltrate. In the ED patient administered vancomycin, aztreonam however per discussion with patient review of prior admissions she has been given Zosyn in the past without any ill effect, Cardizem 20 mg IV bolus x1 as well as normal saline. Past Medical History Past Medical History (Chronic Problems): Chronic Problems (Last Reviewed 07/15/19 @ 13:20 by Alessandra Valdivia) Anxiety and depression (Chronic) CHF (congestive heart failure) (Chronic) CKD (chronic kidney disease), stage IV (Chronic) History of respiratory failure (Chronic) extubated 06/18/2019 @ [facility] Paroxysmal atrial fibrillation (Chronic) Sick sinus syndrome (Chronic) Edema (Chronic) Anticoagulant long-term use (Chronic) Anemia, unspecified (Chronic) CKD (chronic kidney disease) (Chronic) Essential hypertension (Chronic) DM2 (diabetes mellitus, type 2) (Chronic) COPD (chronic obstructive pulmonary disease) (Chronic) GERD (gastroesophageal reflux disease) (Chronic) Methicillin resistant Staph aureus culture positive (Chronic) Cellulitis of right ankle (Chronic) Osteoporosis (Chronic) Anxiety (Chronic) GERD (gastroesophageal reflux disease) (Chronic) Insomnia (Chronic) Hyperlipidemia (Chronic) Medical History: Medical History (Last Reviewed 07/15/19 @ 13:20 by Alessandra Valdivia) Cardiogenic shock (Acute) R57.0 Bradycardia (Acute) R00.1 History of respiratory failure (Chronic) Z87.09 extubated 06/18/2019 @ [facility] Paroxysmal atrial fibrillation (Chronic) I48.0 Sick sinus syndrome (Chronic) I49.5 Renal failure (ARF), acute on chronic (Acute) N17.9, N18.9 Acute hyperkalemia (Acute) E87.5 Edema (Chronic) R60.9 Anticoagulant long-term use (Chronic) Z79.01 Anemia, unspecified (Chronic) D64.9 CKD (chronic kidney disease) (Chronic) N18.9 Essential hypertension (Chronic) I10 DM2 (diabetes mellitus, type 2) (Chronic) E11.9 COPD (chronic obstructive pulmonary disease) (Chronic) J44.9 GERD (gastroesophageal reflux disease) (Chronic) K21.9 Debility (Acute) R53.81 Methicillin resistant Staph aureus culture positive (Chronic) Z22.322 Hyperlipidemia (Chronic) E78.5 Anemia (Ruled-out) D64.9 Allergies Penicillins [PCN] Allergy (Verified 08/20/19 13:39) Other shellfish derived Allergy (Verified 08/20/19 13:39) Other Home Medications: Ambulatory Orders Medication Instructions Recorded Alendronate Sodium 70 mg PO ELIZONDO 06/16/19 Ipratropium/Albuterol Sulfate 3 ml INHALATION Q6H PRN PRN 06/16/19 [Duoneb] Metoprolol Tartrate 25 mg PO BID 06/16/19 Simvastatin 40 mg PO QHS 06/16/19 traZODone [Desyrel] 50 mg PO QHS 06/16/19 Apixaban [Eliquis] 2.5 mg PO BID 08/20/19 Cholecalciferol (VIT D3) [Vitamin 1,000 unit PO DAILY 08/20/19 D3] Fluticasone Propion/Salmeterol 1 ea INHALATION BID 08/20/19 [Wixela 250-50 Inhub] Furosemide [Lasix] 40 mg PO DAILY 08/20/19 Glimepiride [Amaryl] 1 mg PO DAILY 08/20/19 Guaifenesin [Robitussin] 10 ml PO Q4H PRN PRN 08/20/19 Insulin Lispro [Humalog] See Protocol SQ TID 08/20/19 Iron Polysaccharide Complex 150 mg PO DAILYCM 08/20/19 [Ferrex 150] Mineral Oil/Petrolatum,White 1 applic TOPICAL 219908/20/19 [Eucerin] Mirtazapine [Remeron] 7.5 mg PO QHS 08/20/19 Pantoprazole Sodium [Protonix] 40 mg PO DAILY 08/20/19 Polyethylene Glycol 3350 [Miralax] 17 gm PO DAILY 08/20/19 Senna/Docusate Sodium [Senokot-S] 1 tab PO BID 08/20/19 Surgical History: Surgical History (Last Reviewed 07/15/19 @ 13:20 by Alessandra Valdivia) History of arthroscopic knee surgery Z98.890 History of cholecystectomy Z90.49 History of foot surgery Z98.890 X3 History of hemorrhoidectomy Z98.890 History of tonsillectomy Z90.89 History of tubal ligation Z98.51 Surgical History: - - Cholecystectomy, multiple foot surgeries, arthroscopic knee surgery, tubal ligation, tonsillectomy, hemorrhoidectomy. Psychiatric 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, Depression MEASUREMENT COORDINATOR History: No pertinent MEASUREMENT COORDINATOR history Lives: [facility] Smoking Status: Never smoker Tobacco Use: Non-smoker Alcohol: None Drugs: None - *Family History Maternal History Items: - - Patient denies any market maternal family history including heart disease, diabetes or cancer. Paternal History Items: - - Patient denies any market maternal family history including heart disease, diabetes or cancer. Review of Systems Constitutional: Reports: Anorexia, Chills, Malaise, Weakness, Fatigue. Denies: Fever, Weight Change HEENT: Denies: Head Aches, Sinus Congestion, Sinus Drainage Cardiovascular: Reports: Edema. Denies: Chest Pain, Light Headedness, Or thopnea, Palpitations Respiratory: Reports: Cough, Shortness of Breath, Shortness of breath at rest, Shortness of breath upon exertion, Sputum production Gastrointestinal: Denies: Abdominal Pain, Nausea, Vomiting Genitourinary: Denies: Dysuria Musculoskeletal: Reports: Back Pain, Joint Pain. Denies: Joint Tenderness Skin: Denies: Rash, Wounds Neurological: Denies: Numbness, Tingling, Focal weakness Psychiatric: Reports: Anxiety, Depression. Denies: Homicidal Ideations, Suicidal Ideations Hematologic/ Lymphatic: Reports: Anemia, Easy Bruising, Easy Bleeding VTE Information - Inpt Only VTE Present on Admission: No VTE Mechan Device Prophylaxis: SCD's VTE Pharm Prophylaxis ordered?: No Reason prophylaxis not ordered:: Medical Contraindication - Continued on patient anticoagulation. Patient Problems: Active and Suspected Problems (Last Reviewed 07/15/19 @ 13:20 by Alessandra Valdivia) Severe sepsis (Acute) Atrial fibrillation with RVR (Acute) HCAP (healthcare-associated pneumonia) (Acute) Subjective: Seated upright in ED bed, fatigued and ill-appearing, ongoing dry cough during evaluation, notes chills, covered in blankets. Objective: Physical Examination: General: awake, alert, oriented to self, place, recent events, remains cooperative, seated upright in the ED bed, fatigued, ill-appearing. Skin: normal color, turgor, no icterus, cyanosis. HEENT: AT/NC, EOMI, PERRLA, mask in place, no carotid bruits or JVD noted. Lungs: Significantly diminished breath sounds, greater throughout, greater right base, mild rales right base, no rhonchi or wheezing. Heart: Irregular irregular, no gallop, rub audible. Abdomen: soft, NTTP, ND, normal BS, no HSM. Extremities: no cyanosis, clubbing, bilateral lower extremity pedal to proximal reyez 1+ pitting edema. Neurological: patient awake, alert, oriented as noted; cognitive function is baseline intact; pupils equally reactive to light and accomodation; cranial nerves II-XII grossly normal, moving all 4 extremities, strength severely global decrease secondary to acute presentation. Psychiatric: affect appears fatigued, ill-appearing, no acute evidence of depressive or anxiety feelings. - Physical Exam Vitals/I&O's: Vital Signs Temp Pulse Resp BP Pulse Ox 97.7 F L 123 H 20 H 146/72 H 97 08/20/19 14:04 08/20/19 14:04 08/20/19 14:04 08/20/19 14:04 08/20/19 14:04 Oxygen Flow Rate (L/min) 2 Oxygen Delivery Method Room Air Weight: 227 lb 1.218 oz Body Mass Index (BMI) 42.9 Finger Stick Blood Glucose 62 Microbiology Past 72 Hours 08/20/19 14:00 Mucosa - Nose Influenza Types A,B Direct FA (BERNICE) - Final Laboratory Results 08/20/19 14:10: WBC 10.3, RBC 2.87 L, Hgb 8.6 L, Hct 28.9 L, MCV 100.7 H, MCH 30.0, MCHC 29.8 L, RDW Std Deviation 63.5 H, RDW Coeff of Alicia 17.0 H, Plt Count 240, MPV 10.8, Immature Gran % (Auto) 0.400, Neut % (Auto) 81.8 H, Lymph % (Auto) 8.3 L, [place] % (Auto) 7.7, Eos % (Auto) 1.5, Baso % (Auto) 0.3, Absolute Neuts (auto) 8.4 H, Absolute Lymphs (auto) 0.85, Nucleated RBC % 0 08/20/19 14:10: PT 19.4 H, INR 1.7, APTT 37.2 H 08/20/19 14:10: Sodium 140, Potassium 3.7, Chloride 97 L, Carbon Dioxide 41.0 H, Anion Gap 2 L, BUN 40 H, Creatinine 1.23 H, Estim Creat Clear Calc 27.99, Est GFR (MDRD) Af Amer 54 L, Est GFR (MDRD) Non-Af 45 L, BUN/Creatinine Ratio 32.5 H , Glucose 215 H, Calcium 9.0, Total Bilirubin 0.70, AST 18, ALT 13, Alkaline Phosphatase 127 H, Troponin I 0.043, Total Protein 7.2, Albumin 2.6 L, Globulin 4.6 H, Albumin/Globulin Ratio 0.6 L 08/20/19 14:10: Lactic Acid 2.4 H* 08/20/19 14:10: B-Natriuretic Peptide 1063.9 H 08/20/19 14:25: Urine Color Yellow, Urine Clarity Clear, Urine pH 6.0, Ur Specific [place] 1.010, Urine Protein 15 H, Urine Glucose (UA) Normal, Urine Ketones Negative, Urine Occult Blood Negative, Urine Nitrite Positive H, Urine Bilirubin Negative, Urine Urobilinogen Normal, Ur Leukocyte Esterase Negative, Urine RBC 0 SEEN, Urine WBC 0 SEEN, Ur Squamous Epith Cells 0 SEEN, Urine Bacteria 4+, Urine Mucus 0 SEEN Current Medications Aztreonam 2 gm/ Sodium (Chloride) 100 mls @ 150 mls/hr IV X1 ONE Stop: 08/20/19 16:11 Vancomycin HCl 1,500 mg/ (Sodium Chloride) 530 mls @ 250 mls/hr IV X1 ONE Stop: 08/20/19 18:07 Assessment/Plan All Active Problems (Last Reviewed 07/15/19 @ 13:20 by Alessandra Valdivia) Hypoglycemia (Acute) CHF exacerbation (Acute) Pneumonia (Acute) Encephalopathy acute (Acute) Severe sepsis (Acute) Atrial fibrillation with RVR (Acute) HCAP (healthcare-associated pneumonia) (Acute) Cardiogenic shock (Acute) Bradycardia (Acute) Renal failure (ARF), acute on chronic (Acute) Acute hyperkalemia (Acute) Debility (Acute) Unresponsiveness (Resolved) History of respiratory failure with hypo (Resolved) Anemia (Ruled-out) The patient is a 78 y/o F w PMHx: CKD stage IV, PAF on apixaban, HTN, HLD, GERD, Chronic COPD, Hx Sick sinus syndrome, Diabetes mellitus type II, several recent hospitalizations with each SNF transition including complicated UTI with associated CARLENE on chronic kidney disease secondary to ATN with septic shock as well as cardiogenic shock with bacteremia as well as CHF exacerbation, hypoglycemia and influenza A with hypoxia who now re-presents to the [facility] ED on 08/20/19 with history of progressive decline with significantly worsening dyspnea as well as productive cough, fatigue, malaise and significant palpitations over the last several days with progressively increasing heart rate prompting transition for evaluation. 1. Severe Sepsis secondary to HCAP, Possible GN/GP organism, Possible concurrent Acute Viral Syndrome with COVID-19 Infection: Will admit to the ICU, will maintain on oxygen with wean as tolerated to room air, continue ATC atrovent transition of rate concerning, PRN albuterol, maintained on IV Zosyn and Vancomycin pending MRSA screen with de-escalation if appropriate, HOB, IS parameters w/ pending sputum cultures, respiratory viral panel and urine antigens. Requested CT Chest given patient recurrent pulmonary infections and several hospitalization->SNF transitions, evaluation COVID-19 also. 2. PAF with RVR: We will maintain on telemetry, cycle cardiac enzymes, repeat EKGs, obtain magnesium level with supplementation if necessary, obtain TSH level, initiate Cardizem drip and transition patient home metoprolol regimen as able. Likely secondary to #1. 3. Chronic Diastolic CHF: CXR without obvious congestion, BNP is elevated > 1000 but clinical appearance concerning for HCAP as noted, CT chest however pending, judiciously hydrating given history, SNUG kash wraps, maintain on cardiac telemetry, obtain cardiac enzyme series, obtain serial EKGs, monitor I/Os, continue medical therapy. Most recent ECHO noted 07/24/2019 with mild concentric LVH, EF 65%, stage II diastolic dysfunction, severely dilated RV, moderate segmental dysfunction of RV, moderate severe TBI, RVSP 60 mmHg, small left pleural effusion. 4. Diabetes mellitus type II: Recent admission with notable hyperglycemia, will continue patient home current insulin regimen with hold if necessary, closely monitor, ADA diet, insulin sliding scale with Accu-Cheks. 5. Chronic COPD: ATC atrovent given #1 as noted and PAF w/ RVR, PRN albuterol, HOB, IS parameters. 6. Chronic macrocytic anemia: Admission hemoglobin 8.6, baseline appears similar 8-9, continue to trend. 7. Chronic Kidney Disease Stage IV: Admission BUN/Cr 40/1.23, baseline renal function most recently 0.9-1, repeat BMP in AM. 8. Hypertension: Continue home regimen with hold parameters as needed specially given IV Cardizem usage for #2, PRN hydralazine. 9. Hyperlipidemia: Continue home statin regimen. 10. Anxiety and depression: We will continue patient home mirtazapine trazodone regimen. 11. GERD: Continue home PPI. 12. DVT prophylaxis: SCDs, continue apixaban. 13. CODE status: Patient MART is her daughter and living will is currently in place. Discussed CODE status at length including difference between FULL code, DNR-CCA and DNR-CC status. Following discussions about the differences in these status, requested DNR-CCA, no intubation status. Advanced Care Planning Face to Face Time: 16 minutes. Inpatient E&M: 77818 Init Hosp L3 Procedures: 13623 Advncd Care Plan 30 Min
[2019-08-20] MEDS: dilTIAZem 25 MG/5 ML Vial 20 MG IV BOLUS (16:06)
--- NOTE | 2019-08-20 16:21 | NURSING ---
ICU 4
[2019-08-20 17:26] LABS: Magnesium 1.5 mg/dL (1.6-2.6); Phosphorus 1.9 mg/dL (2.5-4.9); Thyroid Stim Hormone (TSH) 2.36 uIU/mL (0.358-3.74)
[2019-08-20] MEDS: 0.9% Normal Saline 1,000 ML 100 ML IV (17:35)
--- NOTE | 2019-08-20 17:45 | PCM.RX.CS ---
Consult Pharmacy has been consulted to manage selected antiobiotic: Vancomycin Type of Consult: Follow-up Prior Doses of Antibiotics Received/Current Regimen: Received vancomycin 1500mg IV x1 in E.R. starting at 17:07 tonight Labs: Sodium 140 mmol/L (136-145) 08/20/19 14:10 Potassium 3.7 mmol/L (3.5-5.1) 08/20/19 14:10 Chloride 97 mmol/L (98-107) L 08/20/19 14:10 Carbon Dioxide 41.0 mmol/L (21.0-32.0) H 08/20/19 14:10 Anion Gap 2 (5-15) L 08/20/19 14:10 BUN 40 mg/dL (7-18) H 08/20/19 14:10 Creatinine 1.23 mg/dL (0.55-1.02) H 08/20/19 14:10 Est GFR (MDRD) Af Amer 54 mL/min (>60) L 08/20/19 14:10 Est GFR (MDRD) Non-Af 45 mL/min (>60) L 08/20/19 14:10 BUN/Creatinine Ratio 32.5 RATIO (10-20) H 08/20/19 14:10 Glucose 215 mg/dL (74-106) H 08/20/19 14:10 Microbiology: Microbiology 08/20/19 14:00 Mucosa - Nose Influenza Types A,B Direct FA (BERNICE) - Final Weight used for dosin.2 kg Estimated Creatinine Clearance: 40.5ml/min Goal Trough: 15-20 mcg/mL Pharmacy Plan for Drug Dosing: Per the [facility] Vancomycin Dosing Protocol, will continue vancomycin at 750mg IV q12h, starting 12 hours after the E.R. dose. Note that the patient's CrCl of 40.5ml/min was calculated using an adjusted body weight of 69.2kg. A vancomycin trough level will be ordered to be drawn before the 4th total dose. Pharmacy Service will continue to monitor and adjust dosing as required. Follow-Up Labs: Trough Vancomycin Labs to be done on [date and time ordered]: 08/22/19 04:30
[2019-08-20 18:17] LABS: Reflex Lactate? Y
[2019-08-20 18:41] LABS: Bedside Glucose 103 mg/dL (70-110)
--- NOTE | 2019-08-20 18:48 | CT_ITS ---
STUDY: CT CHEST WITHOUT CONTRAST REASON FOR EXAM: Female, 78 years old. SUSPECT COVID, COUGH, DYSPNEA, HYPOXIA, CHILLS, FATIGUE, RECENTLY HOSPITALIZED FOR INFLUENZA A (NOW IS NEGATIVE) AND PNEUMONIA. RADIATION DOSAGE (If Supplied By Facility): CTDIvol = ( 18.36 ) mGy, DLP = ( 637.54 ) mGycm TECHNIQUE: Transaxial imaging was performed without the administration of intravenous contrast material. Individualized dose optimization techniques were used for this CT. COMPARISON: None. FINDINGS: Moderate hyperexpansion of the chest. Moderate to large right pleural effusion. Small left pleural effusion. Prominent atelectasis of most of the right lower lobe. Mild atelectasis in the left lower lobe. Associated pneumonia in these areas of atelectasis cannot be excluded. Evaluation of the soft tissues is limited because IV contrast was not given. Mild cardiomegaly. Very heavy calcification of the aortic arch and the vessels to the neck. Prominent calcified plaque of the entire descending thoracic aorta. Normal pulmonary arteries. Mediastinal or hilar adenopathy cannot be excluded without IV contrast. Limited views of the skeletal structures show no acute or focal abnormalities. Limited views through the upper abdomen show small amount of fluid around the liver and spleen. CT/Chest without Contrast IMPRESSION: Moderate to large right pleural effusion. Marked atelectasis of the right lower lobe. Small left pleural effusion. Mild atelectasis of the left lower lobe. Pneumonia not excluded in the areas of atelectasis. Electronically Signed: Jasen Bright MD at 22:17 EDT , Service support ,
[2019-08-20 19:00] LABS: Lactic Acid 0.9 mmol/L (0.4-1.9)
[2019-08-20] MEDS: Ipratropium 0.5 MG/2.5 ML SOLUTION INHALATION ×2 (19:30→23:20)
[2019-08-20] MEDS: Metoprolol Tartrate 25 MG Tablet PO (22:21)
[2019-08-20] MEDS: Atorvastatin Calcium 20 MG Tablet PO (22:21)
[2019-08-20] MEDS: traZODone 50 MG Tablet PO (22:22)
[2019-08-20] MEDS: Mirtazapine 15 MG Tablet 7.5 MG PO (22:22)
[2019-08-20] MEDS: APIXABAN 2.5 MG TABLET PO (22:22)
[2019-08-20 22:35] LABS: Bedside Glucose 79 mg/dL (70-110)
[2019-08-21] VITALS (33 sets, daily range): BP systolic 80–128; BP diastolic 30–107; PULSE 92–129; RESP 11–22; TEMP 35.8–36.4; O2SAT 91–100
[2019-08-21] MEDS: Ipratropium 0.5 MG/2.5 ML SOLUTION INHALATION ×6 (02:45→23:39)
[2019-08-21 03:21] LABS: Absolute Lymphocyte Count 0.98 X10^3/uL (0.83-4.51); Basophil# 0.03 X10^3/uL; Basophil% 0.4 % (0-1); Eosinophil# 0.22 X10^3/uL; Eosinophils% 3.2 % (0-5); Hemoglobin 8.1 g/dL (12.0-15.0); Lymphocyte # 0.98 X10^3/ul (4.0); Lymphocyte % 14.3 % (19-41); Mean Corp Hgb Conc 28.9 g/dL (32-36); Mean Corpuscular Volume 103.7 fL (81-99); Mean Platelet Vol. 10.2 fl (6.2-12.0); Monocyte# 0.61 X10^3/uL; Monocyte% 8.9 % (0-10); NRBC Flagged by Analyzer 0 % (0-5); Neutrophil # 5.01 X10^3/uL (2.7-7.7); Neutrophil % 73.1 % (47-70); POSITIVE MORPHOLOGY YES; Platelet Count 210 K/mm3 (150-450); RBC Distribution Width CV 17.1 % (11.6-14.6); RBC Distribution Width SD 65.1 fl (35.1-43.9); White Blood Count 6.9 K/mm3 (4.4-11.0)
[2019-08-21 03:24] LABS: Differential Indicated SCAN CRITERIA MET
[2019-08-21 03:38] LABS: Differential Comment SCANNED; Ovalocyte RARE; Stomatocyte RARE
[2019-08-21 03:47] LABS: ALB/GLOB Ratio 0.5 RATIO (0.9-2.4); AST(SGOT) 18 U/L (15-37); Alanine Aminotransfer ALT/SGPT 11 U/L (13-56); Albumin, Serum 2.1 g/dL (3.2-5.0); Alkaline Phosphatase 115 U/L (45-117); Anion Gap 4 (5-15); BUN 38 mg/dL (7-18); BUN/Creat Ratio 38.7 RATIO (10-20); Calcium,Total 8.2 mg/dL (8.5-10.1); Chloride 98 mmol/L (98-107); Creatinine, Serum 0.98 mg/dL (0.55-1.02); EST Glomerular Filtration Rate 58 mL/min (>60); Est Glom Filt Rate - Afr Amer 70 mL/min (>60); Estimated Creatinine Clearance 35.13 ml/min; Globulin 4.4 g/dL (2.2-4.2); Glucose 86 mg/dL (74-106); Magnesium 1.9 mg/dL (1.6-2.6); Potassium 4.1 mmol/L (3.5-5.1); Protein, Total 6.5 g/dL (6.4-8.2); Sodium Level 141 mmol/L (136-145)
[2019-08-21 05:25] LABS: M R Staph aureus DNA By PCR Negative (Negative); Probe Check PASS; Specimen Processing Control PASS
--- NOTE | 2019-08-21 05:55 | EKG12_ITS ---
Test Reason : AM EKG Blood Pressure : / mmHG Vent. Rate : 116 BPM Atrial Rate : 061 BPM P-R Int : 000 ms QRS Dur : 070 ms QT Int : 322 ms P-R-T Axes : 000 086 013 degrees QTc Int : 447 ms Atrial fibrillation Low voltage QRS Abnormal ECG When compared with ECG of 20-AUG-2019 14:37, MANUAL COMPARISON REQUIRED, DATA IS UNCONFIRMED Confirmed by HERMINIA CUI, TRINO ([id number]), editor producer BRITTNEY JACQUES ([id number]) on 08/21/2019 1:48:59 PM Referred By: MARLEE Confirmed By:TRINO HOPE MD
--- NOTE | 2019-08-21 06:46 | CON.PCM_ITS ---
Reason for Consult Date of Consultation: 08/21/19 Reason for Consultation: Severe sepsis History of Present Illness: The patient is a 78-year-old female, with a history as outlined below, who presented to the emergency department on August 19 with complaints of shortness of breath and cough. The patient was just admitted to the hospital August 09-, during which time, she was treated for acute hypoxemic respiratory failure secondary to acute diastolic CHF exacerbation along with COPD exacerbation secondary to influenza A. Pulmonary function studies completed in July 2019 revealed evidence of a severe mixed ventilatory defect with symmetric reduction in diffusing capacity. The patient is currently followed by Dr. Vickers in the cardiology clinic due to a history of paroxysmal atrial fibrillation, diastolic heart failure and sick sinus syndrome. Although the patient does report the presence of a nonproductive dry cough, the symptom has been present since her previous hospitalization for influenza A. On presentation to the emergency department, the patient was noted to be afeb rile and hemodynamically stable. She was in atrial fibrillation with a rapid ventricular rate, nonetheless. Laboratory evaluation revealed no evidence of a leukocytosis. Chemistry profile was notable for an elevated serum bicarbonate of 41 with an elevated creatinine of 1.23. Initial lactate was noted to be 2.4. Phosphorus was low at 1.9 and magnesium was low at 1.5. Initial BNP was elevated to 1064. UA was notable for nitrites and 4+ urine bacteria. MRSA screen was negative. A CT chest without contrast was obtained which revealed moderate to large right-sided pleural effusion and a small left pleural effusion. There was associated compressive atelectasis. The patient was subsequently admitted to the medical intensive care unit for further management. Despite her elevated BNP, the patient was ordered to receive supplemental IV fluids and antimicrobial therapy. Past Medical History Past Medical History (Chronic Problems): Chronic Problems (Last Reviewed 07/15/19 @ 13:20 by Alessandra Valdivia) Anxiety and depression (Chronic) CHF (congestive heart failure) (Chronic) CKD (chronic kidney disease), stage IV (Chronic) History of respiratory failure (Chronic) extubated 06/18/2019 @ [facility] Paroxysmal atrial fibrillation (Chronic) Sick sinus syndrome (Chronic) Edema (Chronic) Anticoagulant long-term use (Chronic) Anemia, unspecified (Chronic) CKD (chronic kidney disease) (Chronic) Essential hypertension (Chronic) DM2 (diabetes mellitus, type 2) (Chronic) COPD (chronic obstructive pulmonary disease) (Chronic) GERD (gastroesophageal reflux disease) (Chronic) Methicillin resistant Staph aureus culture positive (Chronic) Cellulitis of right ankle (Chronic) Osteoporosis (Chronic) Anxiety (Chronic) GERD (gastroesophageal reflux disease) (Chronic) Insomnia (Chronic) Hyperlipidemia (Chronic) Medical History: Medical History (Last Reviewed 07/15/19 @ 13:20 by Alessandra Valdivia) Cardiogenic shock (Acute) R57.0 Bradycardia (Acute) R00.1 History of respiratory failure (Chronic) Z87.09 extubated 06/18/2019 @ [facility] Paroxysmal atrial fibrillation (Chronic) I48.0 Sick sinus syndrome (Chronic) I49.5 Renal failure (ARF), acute on chronic (Acute) N17.9, N18.9 Acute hyperkalemia (Acute) E87.5 Edema (Chronic) R60.9 Anticoagulant long-term use (Chronic) Z79.01 Anemia, unspecified (Chronic) D64.9 CKD (chronic kidney disease) (Chronic) N18.9 Essential hypertension (Chronic) I10 DM2 (diabetes mellitus, type 2) (Chronic) E11.9 COPD (chronic obstructive pulmonary disease) (Chronic) J44.9 GERD (gastroesophageal reflux disease) (Chronic) K21.9 Debility (Acute) R53.81 Methicillin resistant Staph aureus culture positive (Chronic) Z22.322 Hyperlipidemia (Chronic) E78.5 Anemia (Ruled-out) D64.9 Allergies Penicillins [PCN] Allergy (Verified 08/20/19 13:39) Other shellfish derived Allergy (Verified 08/20/19 13:39) Other Home Medications: Ambulatory Orders Medication Instructions Recorded Alendronate Sodium 70 mg PO ELIZONDO 06/16/19 Ipratropium/Albuterol Sulfate 3 ml INHALATION Q6H PRN PRN 06/16/19 [Duoneb] Metoprolol Tartrate 25 mg PO BID 06/16/19 Simvastatin 40 mg PO QHS 06/16/19 traZODone [Desyrel] 50 mg PO QHS 06/16/19 Apixaban [Eliquis] 2.5 mg PO BID 08/20/19 Cholecalciferol (VIT D3) [Vitamin 1,000 unit PO DAILY 08/20/19 D3] Fluticasone Propion/Salmeterol 1 ea INHALATION BID 03/25/20 [Wixela 250-50 Inhub] Furosemide [Lasix] 40 mg PO DAILY 08/20/19 Glimepiride [Amaryl] 1 mg PO DAILY 08/20/19 Guaifenesin [Robitussin] 10 ml PO Q4H PRN PRN 08/20/19 Insulin Lispro [Humalog] See Protocol SQ TID 08/20/19 Iron Polysaccharide Complex 150 mg PO DAILYCM 08/20/19 [Ferrex 150] Mineral Oil/Petrolatum,White 1 applic TOPICAL 2200 08/20/19 [Eucerin] Mirtazapine [Remeron] 7.5 mg PO QHS 08/20/19 Pantoprazole Sodium [Protonix] 40 mg PO DAILY 08/20/19 Polyethylene Glycol 3350 [Miralax] 17 gm PO DAILY 08/20/19 Senna/Docusate Sodium [Senokot-S] 1 tab PO BID 08/20/19 Surgical History: Surgical History (Last Reviewed 07/15/19 @ 13:20 by Alessandra Valdivia) History of arthroscopic knee surgery Z98.890 History of cholecystectomy Z90.49 History of foot surgery Z98.890 X3 History of hemorrhoidectomy Z98.890 History of tonsillectomy Z90.89 History of tubal ligation Z98.51 Surgical History: - - Cholecystectomy, multiple foot surgeries, arthroscopic knee surgery, tubal ligation, tonsillectomy, hemorrhoidectomy. 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 Paternal History Items: - - Patient denies any market maternal family history including heart disease, diabetes or cancer. Review of Systems Constitutional: Denies: Chills, Fever Eyes: Denies: Blurred vision, Double vision HEENT: Denies: Head Aches, Sinus Congestion, Sinus Drainage Cardiovascular: Denies: Chest Pain, Palpitations Respiratory: Reports: Cough, Shortness of Breath. Denies: Sputum production Gastrointestinal: Denies: Abdominal Pain, Nausea, Vomiting Genitourinary: Denies: Dysuria Musculoskeletal: Denies: Joint Pain, Joint Tenderness Skin: Denies: Rash, Wounds Neurological: Denies: Numbness, Tingling, Focal weakness Psychiatric: Denies: Anxiety, Depression, Homicidal Ideations, Suicidal I deations Hematologic/ Lymphatic: Denies: Easy Bruising, Easy Bleeding Patient Problems: Active and Suspected Problems (Last Reviewed 07/15/19 @ 13:20 by Alessandra Valdivia) Severe sepsis (Acute) Atrial fibrillation with RVR (Acute) HCAP (healthcare-associated pneumonia) (Acute) Objective: The patient's most recent lab work, culture data and imaging studies have all been personally reviewed. Strep and urine Legionella antigens were negative. Respiratory viral panel was negative. Blood and urine cultures are pending. Surface echocardiogram from June 2019 revealed stage II diastolic dysfunction with an ejection fraction of 65% and a right ventricular systolic pressure estimated to be 60 mmHg. The RV was severely dilated with moderate segmental dysfunction. - Physical Exam Vitals/I&O's: Vital Signs Temp Pulse Resp BP Pulse Ox 96.9 F L 100 15 87/55 L 100 08/21/19 04:00 08/21/19 06:00 08/21/19 06:00 08/21/19 06:00 08/21/19 06:00 Oxygen Flow Rate (L/min) 2 Oxygen Delivery Method Nasal Cannula Weight: 227 lb 4.745 oz Body Mass Index (BMI) 42.1 Finger Stick Blood Glucose 62 Intake and Output for Last 24 Hours 08/19/19 08/20/19 08/21/19 23:59 23:59 23:59 Intake Total 148.33 / 348.33 1299 / 1299 Output Total 100 / 100 Balance 148.33 / 248.33 1199 / 1199 General: Alert, Cooperative, No apparent distress HEENT: Atraumatic, Normocephalic Oral: No Gingival or Mucosal Lesions/ Ulcerations Neck: Supple, No Nodes, Trachea Midline Lungs: No rhonchi, No wheeze, No rales, Diminished Cardiovascular: Normal S1, Normal S2, Irregular Rate Abdomen: Bowel Sounds Present, Soft, Non Tender Extremities: No clubbing, No cyanosis, Edema Skin: No breakdown Musculoskeletal: No Tenderness to Palpation of Joints or Extremities Lymphatic: No Cervical, Supraclavicular, or Inguinal Adenopathy Neurological: Cranial nerves II-XII grossly intact, Neuro grossly intact Psych/Mental Status: Normal Affect, Appropriate Labs (Last 48 Hours) 08/20/19 08/20/19 08/20/19 14:10 14:10 14:10 WBC 10.3 RBC 2.87 L Hgb 8.6 L Hct 28.9 L MCV 100.7 H MCH 30.0 MCHC 29.8 L RDW Std Deviation 63.5 H RDW Coeff of Alicia 17.0 H Plt Count 240 MPV 10.8 Immature Gran % (Auto) 0.400 Neut % (Auto) 81.8 H Lymph % (Auto) 8.3 L [place] % (Auto) 7.7 Eos % (Auto) 1.5 Baso % (Auto) 0.3 Absolute Neuts (auto) 8.4 H Absolute Lymphs (auto) 0.85 Nucleated RBC % 0 Differential Comment Ovalocytes Stomatocytes PT 19.4 H INR 1.7 APTT 37.2 H Sodium 140 Potassium 3.7 Chloride 97 L Carbon Dioxide 41.0 H Anion Gap 2 L BUN 40 H Creatinine 1.23 H Estim Creat Clear Calc 27.99 Est GFR (MDRD) Af Amer 54 L Est GFR (MDRD) Non-Af 45 L BUN/Creatinine Ratio 32.5 H Glucose 215 H Lactic Acid Calcium 9.0 Phosphorus Magnesium Total Bilirubin 0.70 AST 18 ALT 13 Alkaline Phosphatase 127 H Troponin I 0.043 B-Natriuretic Peptide Total Protein 7.2 Albumin 2.6 L Globulin 4.6 H Albumin/Globulin Ratio 0.6 L TSH Urine Color Urine Clarity Urine pH Ur Specific [place] Urine Protein Urine Glucose (UA) Urine Ketones Urine Occult Blood Urine Nitrite Urine Bilirubin Urine Urobilinogen Ur Leukocyte Esterase Urine RBC Urine WBC Ur Squamous Epith Cells Urine Bacteria Urine Mucus MRSA (PCR) POC Glucose 08/20/19 08/20/19 08/20/19 14:10 14:10 14:10 WBC RBC Hgb Hct MCV MCH MCHC RDW Std Deviation RDW Coeff of Alicia Plt Count MPV Immature Gran % (Auto) Neut % (Auto) Lymph % (Auto) [place] % (Auto) Eos % (Auto) Baso % (Auto) Absolute Neuts (auto) Absolute Lymphs (auto) Nucleated RBC % Differential Comment Ovalocytes Stomatocytes PT INR APTT Sodium Potassium Chloride Carbon Dioxide Anion Gap BUN Creatinine Estim Creat Clear Calc Est GFR (MDRD) Af Amer Est GFR (MDRD) Non-Af BUN/Creatinine Ratio Glucose Lactic Acid 2.4 H* Calcium Phosphorus 1.9 L Magnesium 1.5 L Total Bilirubin AST ALT Alkaline Phosphatase Troponin I B-Natriuretic Peptide 1063.9 H Total Protein Albumin Globulin Albumin/Globulin Ratio TSH 2.36 Urine Color Urine Clarity Urine pH Ur Specific [place] Urine Protein Urine Glucose (UA) Urine Ketones Urine Occult Blood Urine Nitrite Urine Bilirubin Urine Urobilinogen Ur Leukocyte Esterase Urine RBC Urine WBC Ur Squamous Epith Cells Urine Bacteria Urine Mucus MRSA (PCR) POC Glucose 08/20/19 08/20/19 08/20/19 14:25 17:30 18:17 WBC RBC Hgb Hct MCV MCH MCHC RDW Std Deviation RDW Coeff of Alicia Plt Count MPV Immature Gran % (Auto) Neut % (Auto) Lymph % (Auto) [place] % (Auto) Eos % (Auto) Baso % (Auto) Absolute Neuts (auto) Absolute Lymphs (auto) Nucleated RBC % Differential Comment Ovalocytes Stomatocytes PT INR APTT Sodium Potassium Chloride Carbon Dioxide Anion Gap BUN Creatinine Estim Creat Clear Calc Est GFR (MDRD) Af Amer Est GFR (MDRD) Non-Af BUN/Creatinine Ratio Glucose Lactic Acid Calcium Phosphorus Magnesium Total Bilirubin AST ALT Alkaline Phosphatase Troponin I 0.047 H B-Natriuretic Peptide Total Protein Albumin Globulin Albumin/Globulin Ratio TSH Urine Color Yellow Urine Clarity Clear Urine pH 6.0 Ur Specific [place] 1.010 Urine Protein 15 H Urine Glucose (UA) Normal Urine Ketones Negative Urine Occult Blood Negative Urine Nitrite Positive H Urine Bilirubin Negative Urine Urobilinogen Normal Ur Leukocyte Esterase Negative Urine RBC 0 SEEN Urine WBC 0 SEEN Ur Squamous Epith Cells 0 SEEN Urine Bacteria 4+ Urine Mucus 0 SEEN MRSA (PCR) POC Glucose 103 08/20/19 08/20/19 08/20/19 18:30 20:20 22:21 WBC RBC Hgb Hct MCV MCH MCHC RDW Std Deviation RDW Coeff of Alicia Plt Count MPV Immature Gran % (Auto) Neut % (Auto) Lymph % (Auto) [place] % (Auto) Eos % (Auto) Baso % (Auto) Absolute Neuts (auto) Absolute Lymphs (auto) Nucleated RBC % Differential Comment Ovalocytes Stomatocytes PT INR APTT Sodium Potassium Chloride Carbon Dioxide Anion Gap BUN Creatinine Estim Creat Clear Calc Est GFR (MDRD) Af Amer Est GFR (MDRD) Non-Af BUN/Creatinine Ratio Glucose Lactic Acid 0.9 Calcium Phosphorus Magnesium Total Bilirubin AST ALT Alkaline Phosphatase Troponin I 0.046 H B-Natriuretic Peptide Total Protein Albumin Globulin Albumin/Globulin Ratio TSH Urine Color Urine Clarity Urine pH Ur Specific [place] Urine Protein Urine Glucose (UA) Urine Ketones Urine Occult Blood Urine Nitrite Urine Bilirubin Urine Urobilinogen Ur Leukocyte Esterase Urine RBC Urine WBC Ur Squamous Epith Cells Urine Bacteria Urine Mucus MRSA (PCR) POC Glucose 79 08/21/19 08/21/19 08/21/19 03:10 03:10 03:10 WBC 6.9 RBC 2.70 L Hgb 8.1 L Hct 28.0 L MCV 103.7 H MCH 30.0 MCHC 28.9 L RDW Std Deviation 65.1 H RDW Coeff of Alicia 17.1 H Plt Count 210 MPV 10.2 Immature Gran % (Auto) 0.100 Neut % (Auto) 73.1 H Lymph % (Auto) 14.3 L [place] % (Auto) 8.9 Eos % (Auto) 3.2 Baso % (Auto) 0.4 Absolute Neuts (auto) 5.0 Absolute Lymphs (auto) 0.98 Nucleated RBC % 0 Differential Comment SCANNED Ovalocytes RARE Stomatocytes RARE PT INR APTT Sodium 141 Potassium 4.1 Chloride 98 Carbon Dioxide 39.0 H Anion Gap 4 L BUN 38 H Creatinine 0.98 Estim Creat Clear Calc 35.13 Est GFR (MDRD) Af Amer 70 Est GFR (MDRD) Non-Af 58 L BUN/Creatinine Ratio 38.7 H Glucose 86 Lactic Acid Calcium 8.2 L Phosphorus Magnesium 1.9 Total Bilirubin 0.80 AST 18 ALT 11 L Alkaline Phosphatase 115 Troponin I B-Natriuretic Peptide Total Protein 6.5 Albumin 2.1 L Globulin 4.4 H Albumin/Globulin Ratio 0.5 L TSH Urine Color Urine Clarity Urine pH Ur Specific [place] Urine Protein Urine Glucose (UA) Urine Ketones Urine Occult Blood Urine Nitrite Urine Bilirubin Urine Urobilinogen Ur Leukocyte Esterase Urine RBC Urine WBC Ur Squamous Epith Cells Urine Bacteria Urine Mucus MRSA (PCR) Negative POC Glucose Microbiology 08/21/19 04:00 Urine, Random Legionella Antigen - Final 08/21/19 04:00 Urine, Random Streptococcus pneumoniae Antigen (M - Final 08/20/19 17:10 Mucosa - Nose Respiratory Panel (PCR) - Final 08/20/19 14:00 Mucosa - Nose Influenza Types A,B Direct FA (BERNICE) - Final Clinical Impression(s) from Imaging Studies Chest X-Ray 08/20/19 14:45 IMPRESSION: Progressive right lower lobe infiltrate. Electronically Signed: Yonatan Howe, at 15:17 EDT , Service support , Chest CT 08/20/19 18:48 IMPRESSION: Moderate to large right pleural effusion. Marked atelectasis of the right lower lobe. Small left pleural effusion. Mild atelectasis of the left lower lobe. Pneumonia not excluded in the areas of atelectasis. Electronically Signed: Jasen Bright MD at 22:17 EDT , Service support , Current Medications Acetaminophen (Tylenol) 650 mg PO Q6H PRN PRN PRN Reason: Pain Score 1-10/Temp > 100.7 F Al Hydroxide/Mg Hydroxide (Mylanta Ii) 30 ml PO Q6H PRN PRN PRN Reason: Gastric Burning Albuterol Sulfate (Ventolin Aerosols) 2.5 mg INHALATION Q2H PRN PRN PRN Reason: SOB/Wheezing Apixaban (Eliquis) 2.5 mg PO BID [facility] Last Admin: 08/20/19 22:22 Dose: 2.5 mg Documented by: Atorvastatin Calcium (Lipitor) 20 mg PO QHS [facility] Last Admin: 08/20/19 22:21 Dose: 20 mg Documented by: Dextrose (D50w Syringe) 0 gm IV X1 PRN; Protocol PRN Reason: Hypoglycemia Furosemide (Lasix) 40 mg PO DAILY [facility] Glucagon () 1 mg IM .X1 PRN PRN Reason: Hypoglycemia Guaifenesin (Robitussin) 10 ml PO Q4H PRN PRN PRN Reason: COUGH Hydralazine HCl (Apresoline Iv) 10 mg IV Q4H PRN PRN PRN Reason: SBP > 160 Diltiazem HCl 125 mg/ Dextrose 125 mls @ 5 mls/hr IV .Q25H NABIL; Protocol Vancomycin IV Pharmacy to Dose (1 ea/ Sodium Chloride) 500 mls @ 250 mls/hr IV X1 PRN; Protocol PRN Reason: Rx to Dose Piperacillin Sod/Tazobactam (Sod 3.375 gm/ Sodium Chloride) 50 mls @ 12.5 mls/hr IV Q8 [facility] Stop: 08/27/19 22:01 Last Admin: 08/21/19 04:44 Dose: 12.5 mls/hr Documented by: Sodium Chloride () 250 mls @ 15 mls/hr IV .[id number] PRN PRN Reason: Saline Flush Sodium Chloride () 250 mls @ 15 mls/hr IV .[id number] PRN PRN Reason: Additional IVPB Infusion Vancomycin HCl 750 mg/ Sodium (Chloride) 265 mls @ 250 mls/hr IV Q12H [facility] Last Admin: 08/21/19 04:07 Dose: 250 mls/hr Documented by: Insulin Human Lispro (Humalog Kwikpen (Bkc)) 0 unit SC ACHS [facility]; Protocol Last Admin: 08/20/19 22:22 Dose: Not Given Documented by: Ipratropium [place] (Atrovent) 0.5 mg INHALATION Q4H.RT [facility] Last Admin: 08/21/19 02:45 Dose: 0.5 mg Documented by: Melatonin (Melatonin) 3 mg PO QHS PRN PRN PRN Reason: INSOMNIA Metoprolol Tartrate (Lopressor (Beta Lucina)) 25 mg PO BID [facility] Last Admin: 08/20/19 22:21 Dose: 25 mg Documented by: Mirtazapine (Remeron) 7.5 mg PO QHS [facility] Last Admin: 08/20/19 22:22 Dose: 7.5 mg Documented by: Morphine Sulfate () 2 mg IV Q3H PRN PRN PRN Reason: Pain Score 6-10/10 Multi-Ingredient Cream (Eucerin) 1 applic TOPICAL 2200 [facility]; Protocol Last Admin: 08/20/19 22:22 Dose: Not Given Documented by: Nitroglycerin (Nitrostat) 0.4 mg SUBLINGUAL Q5M PRN PRN Reason: CARDIAC/CHEST PAIN Nutritional Formula (Lactose Free) (Glucerna Shake) 120 ml PO 4X/DAY [facility] Last Admin: 08/20/19 22:22 Dose: Not Given Documented by: Ondansetron HCl (Zofran) 4 mg IV Q8H PRN PRN PRN Reason: NAUSEA/VOMITING Oxycodone HCl (Oxyir) 5 mg PO Q4H PRN PRN PRN Reason: Pain Score 4-5/10 Pantoprazole Sodium (Protonix) 40 mg PO DAILY [facility] Polysaccharide Iron Complex (Ferrex 150) 150 mg PO DAILYCM [facility] Prochlorperazine Edisylate (Compazine Iv) 5 mg IV Q4H PRN PRN PRN Reason: Breakthrough Nausea/Vomiting Sodium Chloride () 10 - 40 ml IV UD PRN PRN Reason: SALINE FLUSH Throat Lozenges (Cepacol Sore Throat Lozenge) 1 lozenge MUCOUS MEM Q2H PRN PRN PRN Reason: SORE THROAT Trazodone HCl (Desyrel) 50 mg PO QHS [facility] Last Admin: 08/20/19 22:22 Dose: 50 mg Documented by: Assessment/Plan Active and Suspected Problems (Last Reviewed 07/15/19 @ 13:20 by Alessandra Valdivia) Severe sepsis (Acute) Atrial fibrillation with RVR (Acute) HCAP (healthcare-associated pneumonia) (Acute) RECOMMENDATIONS: 1. Discontinue supplemental IV fluids. 2. Continue Zosyn. Discontinue vancomycin. 3. Administer amiodarone bolus and placed on drip. 4. Transition from p.o. to IV Lasix. 5. Low suspicion for COVID infection. I would favor discontinuation of precautions. IMPRESSIONS: 1. Severe sepsis CT chest is more concerning for decompensated heart failure given moderate to large right-sided pleural effusion and small left pleural effusion. BNP was also elevated greater than 1000. The patient was just hospitalized for influenza and was noted to have a cough at that time, which has persisted. Therefore, the patient's presenting cough is not a new finding. The patient has remained afebrile without evidence of an elevated white blood cell count. Urinalysis was positive for nitrites and urine bacteria, making a urinary tract source of infection a possibility. Cultures are still pending. At this time, I agree with continuing empiric Zosyn therapy, pending finalized infectious work- up. Vancomycin can be discontinued from my perspective. I have a low clinical index of suspicion for underlying COVID infection. I would favor discontinuation of precautions accordingly. 2. Paroxysmal atrial fibrillation/heart failure with preserved ejection fraction/pulmonary hypertension/RV dysfunction The patient is currently in atrial fibrillation with a rapid ventricular rate. Her hemodynamics would likely not tolerate the initiation of Cardizem. Therefore, I would recommend that we provide the patient with an amiodarone bolus and place her on a drip. P.o. Lasix will be transition to IV 40 mg twice daily. 3. COPD/diabetes mellitus/hypertension/hyperlipidemia Complicates care, management, recovery and prognosis. Continue home medications as indicated. This note was generated with [employer] dictation software. It may contain incorrect words, spelling, and punctuation that were not noted in checking the note before signing. Inpatient E&M: 32007 Init Hosp L3
--- NOTE | 2019-08-21 07:46 | PCM.PN.HOSP ---
Patient Problems: Active and Suspected Problems (Last Reviewed 07/15/19 @ 13:20 by Alessandra Valdivia) Severe sepsis (Acute) Atrial fibrillation with RVR (Acute) HCAP (healthcare-associated pneumonia) (Acute) Reason for Visit: Shortness of breath Subjective: Patient is a 78-year-old lady with recent hospitalization for influenza A infection with superimposed COPD exacerbation as well as congestive heart failure presented back to the emergency department shortness of breath. Progressive left lower lobe infiltrate and assessment of severe sepsis was made admitted to a monitored bed for subsequent management Objective: GENERAL: cooperative HEENT: Atraumatic; EYES; Anicteric, Normal Conjunctiva NECK; supple, normal thyroid, RESPIRATORY: Diminished to auscultation CARDIOVASCULAR: Irregular GI: soft, normoactive bowel sounds, : No Renal angle tenderness; EXTREMITIES: Bipedal edema edema, no clubbing, MUSCULOSKELETAL: no muscle waisting NEURO: Awake; no lateralizing signs. SKIN: No Rash PSYCH; Flat affect Vitals/I&O's: Vital Signs Temp Pulse Resp BP Pulse Ox 96.9 F L 108 H 18 87/55 L 96 08/21/19 04:00 08/21/19 06:52 08/21/19 06:52 08/21/19 06:00 08/21/19 06:52 Oxygen Flow Rate (L/min) 2 Oxygen Delivery Method Nasal Cannula Weight: 103.1 kg Body Mass Index (BMI) 42.1 Finger Stick Blood Glucose 62 Intake and Output for Last 24 Hours 08/19/19 08/20/19 08/21/19 23:59 23:59 23:59 Intake Total 148.33 / 348.33 1998 Output Total 100 / 100 Balance 148.33 / 248.33 1899 / 1899 Microbiology Past 72 Hours 08/21/19 04:00 Urine, Random Legionella Antigen - Final 08/21/19 04:00 Urine, Random Streptococcus pneumoniae Antigen (M - Final 08/20/19 17:10 Mucosa - Nose Respiratory Panel (PCR) - Final 08/20/19 14:00 Mucosa - Nose Influenza Types A,B Direct FA (BERNICE) - Final Laboratory Results 08/20/19 14:10: WBC 10.3, RBC 2.87 L, Hgb 8.6 L, Hct 28.9 L, MCV 100.7 H, MCH 30.0, MCHC 29.8 L, RDW Std Deviation 63.5 H, RDW Coeff of Alicia 17.0 H, Plt Count 240, MPV 10.8, Immature Gran % (Auto) 0.400, Neut % (Auto) 81.8 H, Lymph % (Auto) 8.3 L, [place] % (Auto) 7.7, Eos % (Auto) 1.5, Baso % (Auto) 0.3, Absolute Neuts (auto) 8.4 H, Absolute Lymphs (auto) 0.85, Nucleated RBC % 0 08/20/19 14:10: PT 19.4 H, INR 1.7, APTT 37.2 H 08/20/19 14:10: Sodium 140, Potassium 3.7, Chloride 97 L, Carbon Dioxide 41.0 H, Anion Gap 2 L, BUN 40 H, Creatinine 1.23 H, Estim Creat Clear Calc 27.99, Est GFR (MDRD) Af Amer 54 L, Est GFR (MDRD) Non-Af 45 L, BUN/Creatinine Ratio 32.5 H, Glucose 215 H, Calcium 9.0, Total Bilirubin 0.70, AST 18, ALT 13, Alkaline Phosphatase 127 H, Troponin I 0.043, Total Protein 7.2, Albumin 2.6 L, Globulin 4.6 H, Albumin/Globulin Ratio 0.6 L 08/20/19 14:10: Lactic Acid 2.4 H* 08/20/19 14:10: B-Natriuretic Peptide 1063.9 H 08/20/19 14:10: Phosphorus 1.9 L, Magnesium 1.5 L, TSH 2.36 08/20/19 14:25: Urine Color Yellow, Urine Clarity Clear, Urine pH 6.0, Ur Specific [place] 1.010, Urine Protein 15 H, Urine Glucose (UA) Normal, Urine Ketones Negative, Urine Occult Blood Negative, Urine Nitrite Positive H, Urine Bilirubin Negative, Urine Urobilinogen Normal, Ur Leukocyte Esterase Negative, Urine RBC 0 SEEN, Urine WBC 0 SEEN, Ur Squamous Epith Cells 0 SEEN, Urine Bacteria 4+, Urine Mucus 0 SEEN 08/20/19 17:30: Troponin I 0.047 H 08/20/19 18:17: POC Glucose 103 08/20/19 18:30: Lactic Acid 0.9 08/20/19 20:20: Troponin I 0.046 H 08/20/19 22:21: POC Glucose 79 08/21/19 03:10: WBC 6.9, RBC 2.70 L, Hgb 8.1 L, Hct 28.0 L, MCV 103.7 H, MCH 30.0, MCHC 28.9 L, RDW Std Deviation 65.1 H, RDW Coeff of Alicia 17.1 H, Plt Count 210, MPV 10.2, Immature Gran % (Auto) 0.100, Neut % (Auto) 73.1 H, Lymph % (Auto) 14.3 L, [place] % (Auto) 8.9, Eos % (Auto) 3.2, Baso % (Auto) 0.4, Absolute Neuts (auto) 5.0, Absolute Lymphs (auto) 0.98, Nucleated RBC % 0, Differential Comment SCANNED, Ovalocytes RARE, Stomatocytes RARE 08/21/19 03:10: Sodium 141, Potassium 4.1, Chloride 98, Carbon Dioxide 39.0 H, Anion Gap 4 L, BUN 38 H, Creatinine 0.98, Estim Creat Clear Calc 35.13, Est GFR (MDRD) Af Amer 70, Est GFR (MDRD) Non-Af 58 L, BUN/Creatinine Ratio 38.7 H, Glucose 86, Calcium 8.2 L, Magnesium 1.9, Total Bilirubin 0.80, AST 18, ALT 11 L, Alkaline Phosphatase 115, Total Protein 6.5, Albumin 2.1 L, Globulin 4.4 H, Albumin/Globulin Ratio 0.5 L 08/21/19 03:10: Phosphorus Pending 08/21/19 03:10: MRSA (PCR) Negative Current Medications Acetaminophen (Tylenol) 650 mg PO Q6H PRN PRN PRN Reason: Pain Score 1-10/Temp > 100.7 F Al Hydroxide/Mg Hydroxide (Mylanta Ii) 30 ml PO Q6H PRN PRN PRN Reason: Gastric Burning Albuterol Sulfate (Ventolin Aerosols) 2.5 mg INHALATION Q2H PRN PRN PRN Reason: SOB/Wheezing Apixaban (Eliquis) 2.5 mg PO BID [facility] Last Admin: 08/20/19 22:22 Dose: 2.5 mg Documented by: Atorvastatin Calcium (Lipitor) 20 mg PO QHS [facility] Last Admin: 03/25/20 22:21 Dose: 20 mg Documented by: Dextrose (D50w Syringe) 0 gm IV X1 PRN; Protocol PRN Reason: Hypoglycemia Furosemide (Lasix) 40 mg PO DAILY [facility] Glucagon () 1 mg IM .X1 PRN PRN Reason: Hypoglycemia Guaifenesin (Robitussin) 10 ml PO Q4H PRN PRN PRN Reason: COUGH Hydralazine HCl (Apresoline Iv) 10 mg IV Q4H PRN PRN PRN Reason: SBP > 160 Vancomycin IV Pharmacy to Dose (1 ea/ Sodium Chloride) 500 mls @ 250 mls/hr IV X1 PRN; Protocol PRN Reason: Rx to Dose Piperacillin Sod/Tazobactam (Sod 3.375 gm/ Sodium Chloride) 50 mls @ 12.5 mls/hr IV Q8 [facility] Stop: 08/27/19 22:01 Last Admin: 08/21/19 04:44 Dose: 12.5 mls/hr Documented by: Sodium Chloride () 250 mls @ 15 mls/hr IV .[id number] PRN PRN Reason: Saline Flush Sodium Chloride () 250 mls @ 15 mls/hr IV .[id number] PRN PRN Reason: Additional IVPB Infusion Vancomycin HCl 750 mg/ Sodium (Chloride) 265 mls @ 250 mls/hr IV Q12H [facility] Last Infusion: 08/21/19 05:11 Dose: Infused Documented by: Insulin Human Lispro (Humalog Kwikpen (Bkc)) 0 unit SC ACHS [facility]; Protocol Last Admin: 08/20/19 22:22 Dose: Not Given Documented by: Ipratropium [place] (Atrovent) 0.5 mg INHALATION Q4H.RT [facility] Last Admin: 08/21/19 06:49 Dose: 0.5 mg Documented by: Metoprolol Tartrate (Lopressor (Beta Lucina)) 25 mg PO BID [facility] Last Admin: 08/20/19 22:21 Dose: 25 mg Documented by: Mirtazapine (Remeron) 7.5 mg PO QHS [facility] Last Admin: 08/20/19 22:22 Dose: 7.5 mg Documented by: Multi-Ingredient Cream (Eucerin) 1 applic TOPICAL 2200 [facility]; Protocol Last Admin: 08/20/19 22:22 Dose: Not Given Documented by: Nitroglycerin (Nitrostat) 0.4 mg SUBLINGUAL Q5M PRN PRN Reason: CARDIAC/CHEST PAIN Nutritional Formula (Lactose Free) (Glucerna Shake) 120 ml PO 4X/DAY [facility] Last Admin: 08/20/19 22:22 Dose: Not Given Documented by: Ondansetron HCl (Zofran) 4 mg IV Q8H PRN PRN PRN Reason: NAUSEA/VOMITING Pantoprazole Sodium (Protonix) 40 mg PO DAILY [facility] Polysaccharide [facility] ([facility]rex 150) [facility] Prochlorperazine Edisylate (Compazine Iv) 5 mg IV Q4H PRN PRN PRN Reason: Breakthrough Nausea/Vomiting Sodium Chloride () 10 - 40 ml IV UD PRN PRN Reason: SALINE FLUSH Throat Lozenges (Cepacol Sore Throat Lozenge) 1 lozenge MUCOUS MEM Q2H PRN PRN PRN Reason: SORE THROAT Trazodone HCl (Desyrel) 50 mg PO QHS [facility] Last Admin: 08/20/19 22:22 Dose: 50 mg Documented by: STROKE Vital Signs/Narrative: Vital Signs Temp Pulse Resp BP Pulse Ox 08/21/19 06:52 108 H 18 96 08/21/19 06:00 100 15 87/55 L 100 08/21/19 05:00 101 H 14 102/60 100 08/21/19 04:00 96.9 F L 104 H 21 H 103/73 100 Medical Necessity - Tobacco Use Smoking Status: Never smoker Tobacco Use: Non-smoker Assessment/Plan All Active Problems (Last Reviewed 07/15/19 @ 13:20 by Alessandra Valdivia) Hypoglycemia (Acute) CHF exacerbation (Acute) Pneumonia (Acute) Encephalopathy acute (Acute) Severe sepsis (Acute) Atrial fibrillation with RVR (Acute) HCAP (healthcare-associated pneumonia) (Acute) Cardiogenic shock (Acute) Bradycardia (Acute) Renal failure (ARF), acute on chronic (Acute) Acute hyperkalemia (Acute) Debility (Acute) Unresponsiveness (Resolved) History of respiratory failure with hypo (Resolved) Anemia (Ruled-out) Patient is a 78-year-old lady with recent hospitalization for influenza A infection with superimposed COPD exacerbation as well as congestive heart failure presented back to the emergency department shortness of breath. Progressive left lower lobe infiltrate and assessment of severe sepsis was made admitted to a monitored bed for subsequent management 1. Severe sepsis ?Secondary to pneumonia with suspected gram-negative organisms. Patient was managed with broad-spectrum antibiotics per protocol after cultures have been obtained. There was suspicion for acute viral syndrome COVID 19 patient checks history as well as her presentation was felt not to be consistent. Isolation discontinued 2. Paroxysmal A. fib with RVR ?Cardizem was initiated on admission with plans to titrate to keep heart rate less than 100. Cardizem drip was discontinued started on amiodarone following episodes of low blood pressure systemic anticoagulation with apixaban 3. Acute on chronic congestive heart failure ?Patient is on diuretics as well as supplemental oxygen 4. Bilateral pleural effusion - with moderate to large right pleural effusion as well as small left pleural effusion this was felt to be secondary to patient acute congestive heart failure currently being managed with diuresis 5. 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 Placed on long acting insulin, Accu-Cheks a.c. and at bedtime and covered with sliding scale insulin 5. Anemia ?Secondary to anemia of chronic disorder did request for iron studies. Monitoring H&H with plans to transfuse if patient becomes symptomatic or hemoglobin falls below 7 7. GERD ?Patient is on PPI did continue 8. Dyslipidemia ~patient is on statin therapy, continued at home dose 9. COPD ?Currently not in exacerbation aerosol treatment as needed 10. Chronic kidney disease stage IV ?Secondary to diabetic nephropathy kidney function at baseline 11. Essential hypertension ?Patient blood pressure was low antihypertensive is currently being held with subsequent monitoring 12. Depression with anxiety ?Is on Remeron at night 13. DVT prophylaxis: - apixaban. Clinical Impression(s) from Imaging Studies Chest X-Ray 08/20/19 14:45 IMPRESSION: Progressive right lower lobe infiltrate. Electronically Signed: Yonatan Howe, at 15:17 EDT , Service support , Chest CT 08/20/19 18:48 IMPRESSION: Moderate to large right pleural effusion. Marked atelectasis of the right lower lobe. Small left pleural effusion. Mild atelectasis of the left lower lobe. Pneumonia not excluded in the areas of atelectasis. Electronically Signed: Jasen Bright MD at 22:17 EDT , Service support , Inpatient E&M: [id number] Subs Hosp L3
[2019-08-21] MEDS: Iron Polysaccharide Complex 150 MG CAPSULE PO (07:53)
[2019-08-21 07:56] LABS: Phosphorus 4.3 mg/dL (2.5-4.9)
[2019-08-21 08:01] LABS: Bedside Glucose 81 mg/dL (70-110)
[2019-08-21] MEDS: 0.9% Saline Lock 10 ML Syringe IV ×3 (09:34→12:18)
[2019-08-21] MEDS: Pantoprazole Sodium 40 MG Tablet PO (09:38)
[2019-08-21] MEDS: APIXABAN 2.5 MG TABLET PO ×2 (09:38→22:58)
[2019-08-21] MEDS: Glucerna Shake 120 ML LIQUID PO ×2 (09:41→12:18)
[2019-08-21] MEDS: Amiodarone 360 MG in Dextrose 5% Viaflo Bag 192.8 ML 33.3 MG CONT INF (09:46)
[2019-08-21] MEDS: Furosemide 40 MG/4 ML Vial IV (10:10)
--- NOTE | 2019-08-21 11:59 | CASEMGMT ---
Social Work Pt is current resident at [facility]. SW met with pt and asked if she plans to return to [facility] at time of discharge. Pt requesting pt dgt Iman be called. Phone call to Iman and she does confirm that pt will need to return to [facility] at this time prior to returning home with dgt. Phone call to Rima at [facility] and they are able to accept pt back. Clinicals faxed. Will continue to follow for SNF placement. Plan: [facility], when medically ready. TERA Pastor
[2019-08-21] MEDS: Insulin Lispro 100 UNIT/ML INSULN.PEN SC ×3 (12:15→22:57)
[2019-08-21 12:21] LABS: Bedside Glucose 151 mg/dL (70-110)
--- NOTE | 2019-08-21 12:33 | CHAPLAIN ---
patient is sleeping; prayed and left a calling card
[2019-08-21 14:06] LABS: Platelet Count 222 K/mm3 (150-450); RET-HE 33.6 pg (30-35); Reticulocyte Count 1.43 % (0.5-1.5)
[2019-08-21 15:01] LABS: Ferritin 298 ng/mL (8-252); Iron 34 ug/dL (50-170); Iron Binding Capacity,Total 246 ug/dL (250-450); PERCENT IRON SATURATION 13.8 % (15.0-55.0)
[2019-08-21 15:03] LABS: Vitamin B12 564 pg/mL (211-911)
[2019-08-21] MEDS: Amiodarone 360 MG in Dextrose 5% Viaflo Bag 192.8 ML 16.7 MG CONT INF (16:02)
[2019-08-21 16:15] LABS: Bedside Glucose 195 mg/dL (70-110)
[2019-08-21] MEDS: traZODone 50 MG Tablet PO (22:58)
[2019-08-21] MEDS: Mirtazapine 15 MG Tablet 7.5 MG PO (22:58)
[2019-08-21] MEDS: Atorvastatin Calcium 20 MG Tablet PO (22:59)
[2019-08-21 23:10] LABS: Bedside Glucose 264 mg/dL (70-110)
[2019-08-22] VITALS (34 sets, daily range): BP systolic 89–119; BP diastolic 40–94; PULSE 100–136; RESP 14–26; TEMP 35.8–35.9; O2SAT 94–100
--- NOTE | 2019-08-22 | FLU_PTH ---
PATIENT: PLACIDO MENDEZ LOC: PCU U#:[id number] AGE/SX: 78/F ROOM: [facility] RE08/20/[address]: Dr. Destiny Wilde MD : [id number] BED: 1 DIS: 08/25/2019 SPEC #: [id number] RECD: 08/22/19 15:00 STATUS: JOANNA RETamir #: [id number] TRACY: 08/22/19 00:[address]: Destiny Wilde DEPT: CYTOLOGY RECD BY: Turner Vaz ENTERED: 08/25/19 10:34 SP TYPE: Fluid OTHR DR: MD Dr. Dl Rizo DO Dr. Daniel Newton, MD Dr. Tai Chi Kwok, MD Tissues: THORACIC FLUID Procedures: Special Stain Group II Surgery Specimen Level IV Cytospin Fluid HEADER OPERATION: Ultrasound-guided right thoracentesis PRE-OP DIAGNOSIS: Right pleural effusion TISSUE SUBMITTED: Thoracentesis fluid for cytology DIAGNOSIS CYTOLOGY Thoracentesis fluid for cytology (cytospin and cell block): Negative for malignant cells. AM:toñito 08/26/19 CYTOLOGY STUDY Slides are reviewed. CYTOLOGY GROSS Received is 60 ml of yellow cloudy fluid labeled with the patient's name and and designated per the requisition as thoracentesis. Submitted for cytology preparation including cell block. / toñito 08/25/19 TC:5 CPT: 30977, [id number]
[2019-08-22 03:19] LABS: Hematocrit 27.5 % (37-47); Hemoglobin 7.9 g/dL (12.0-15.0); Mean Corp Hgb Conc 28.7 g/dL (32-36); Mean Corpuscular Volume 104.6 fL (81-99); Mean Platelet Vol. 10.7 fl (6.2-12.0); Platelet Count 221 K/mm3 (150-450); RBC Distribution Width CV 17.2 % (11.6-14.6); RBC Distribution Width SD 65.1 fl (35.1-43.9); Red Blood Count 2.63 M/mm3 (4.2-5.4); White Blood Count 10.4 K/mm3 (4.4-11.0)
[2019-08-22 03:20] LABS: Scan Indicated on CBC? Y/N YES- FLAGS NOTED
[2019-08-22 03:23] LABS: POSITIVE MORPHOLOGY YES
[2019-08-22 03:25] LABS: Differential Comment SCANNED
[2019-08-22 03:43] LABS: Anion Gap 6 (5-15); BUN 42 mg/dL (7-18); BUN/Creat Ratio 29.2 RATIO (10-20); Chloride 95 mmol/L (98-107); Creatinine, Serum 1.44 mg/dL (0.55-1.02); EST Glomerular Filtration Rate 37 mL/min (>60); Est Glom Filt Rate - Afr Amer 45 mL/min (>60); Glucose 275 mg/dL (74-106); Magnesium 1.7 mg/dL (1.6-2.6); Potassium 4.3 mmol/L (3.5-5.1); Sodium Level 138 mmol/L (136-145)
[2019-08-22] MEDS: Amiodarone 360 MG in Dextrose 5% Viaflo Bag 192.8 ML 16.7 MG CONT INF ×2 (05:01→16:30)
--- NOTE | 2019-08-22 06:36 | PN_ITS ---
Subjective: The patient was seen and examined at the bedside this morning. Events from the last 24 hours have been reviewed. The patient is currently afebrile, hemodynamically stable and maintaining appropriate oxygen saturations on 1 L/min via nasal cannula. The patient remains in atrial fibrillation with a rapid ventricular rate, despite having been on amiodarone. Her baseline beta-dudley dose was restarted this morning. Objective: The patient's most recent lab work, culture data and imaging studies have all been personally reviewed. Urine culture was positive for presumptive E. coli. Surface echocardiogram from June 2019 revealed stage II diastolic dysfunction with an ejection fraction of 65% and a right ventricular systolic pressure estimated to be 60 mmHg. The RV was severely dilated with moderate segmental dysfunction. General: Alert, No apparent distress HEENT: Atraumatic, Normocephalic Oral: No Gingival or Mucosal Lesions/ Ulcerations Neck: Supple, No Nodes, Trachea Midline Lungs: No rhonchi, No wheeze, No rales, Diminished Cardiovascular: Normal S1, Normal S2, Irregular Rate, Tachycardic Abdomen: Bowel Sounds Present, Soft, Non Tender Extremities: No clubbing, No cyanosis, Edema Skin: No breakdown Musculoskeletal: No Tenderness to Palpation of Joints or Extremities Lymphatic: No Cervical, Supraclavicular, or Inguinal Adenopathy Neurological: Neuro grossly intact Psych/Mental Status: Normal Affect, Appropriate Vital Signs Temp Pulse Resp BP Pulse Ox 96.7 F L 125 H 20 H 106/60 99 08/22/19 00:00 08/22/19 06:00 08/22/19 06:00 08/22/19 06:00 08/22/19 06:00 Oxygen Flow Rate (L/min) 2 Oxygen Delivery Method Nasal Cannula Weight: 225 lb 15.581 oz Body Mass Index (BMI) 42.1 Finger Stick Blood Glucose 62 Intake and Output for Last 24 Hours 08/20/19 08/21/19 08/22/19 23:59 23:59 23:59 Intake Total 148.33 / 348.33 3305.25 / 3305.25 250 / 250 Output Total 550 / 550 150 / 150 Balance 148.33 / 248.33 2755.25 / 2755.25 100 / 100 Labs (Last 48 Hours) 08/20/19 08/20/19 08/20/19 14:10 14:10 14:10 WBC 10.3 RBC 2.87 L Hgb 8.6 L Hct 28.9 L MCV 100.7 H MCH 30.0 MCHC 29.8 L RDW Std Deviation 63.5 H RDW Coeff of Alicia 17.0 H Plt Count 240 MPV 10.8 Immature Gran % (Auto) 0.400 Neut % (Auto) 81.8 H Lymph % (Auto) 8.3 L [place] % (Auto) 7.7 Eos % (Auto) 1.5 Baso % (Auto) 0.3 Absolute Neuts (auto) 8.4 H Absolute Lymphs (auto) 0.85 Nucleated RBC % 0 Differential Comment Ovalocytes Stomatocytes Retic Count Immature Retic Fraction Retic Hgb Equivalent PT 19.4 H INR 1.7 APTT 37.2 H Sodium 140 Potassium 3.7 Chloride 97 L Carbon Dioxide 41.0 H Anion Gap 2 L BUN 40 H Creatinine 1.23 H Estim Creat Clear Calc 27.99 Est GFR (MDRD) Af Amer 54 L Est GFR (MDRD) Non-Af 45 L BUN/Creatinine Ratio 32.5 H Glucose 215 H Lactic Acid Calcium 9.0 Phosphorus Magnesium Iron TIBC Iron Saturation Ferritin Total Bilirubin 0.70 AST 18 ALT 13 Alkaline Phosphatase 127 H Troponin I 0.043 B-Natriuretic Peptide Total Protein 7.2 Albumin 2.6 L Globulin 4.6 H Albumin/Globulin Ratio 0.6 L Vitamin B12 TSH Urine Color Urine Clarity Urine pH Ur Specific [place] Urine Protein Urine Glucose (UA) Urine Ketones Urine Occult Blood Urine Nitrite Urine Bilirubin Urine Urobilinogen Ur Leukocyte Esterase Urine RBC Urine WBC Ur Squamous Epith Cells Urine Bacteria Urine Mucus MRSA (PCR) POC Glucose 08/20/19 08/20/19 08/20/19 14:10 14:10 14:10 WBC RBC Hgb Hct MCV MCH MCHC RDW Std Deviation RDW Coeff of Alicia Plt Count MPV Immature Gran % (Auto) Neut % (Auto) Lymph % (Auto) [place] % (Auto) Eos % (Auto) Baso % (Auto) Absolute Neuts (auto) Absolute Lymphs (auto) Nucleated RBC % Differential Comment Ovalocytes Stomatocytes Retic Count Immature Retic Fraction Retic Hgb Equivalent PT INR APTT Sodium Potassium Chloride Carbon Dioxide Anion Gap BUN Creatinine Estim Creat Clear Calc Est GFR (MDRD) Af Amer Est GFR (MDRD) Non-Af BUN/Creatinine Ratio Glucose Lactic Acid 2.4 H* Calcium Phosphorus 1.9 L Magnesium 1.5 L Iron TIBC Iron Saturation Ferritin Total Bilirubin AST ALT Alkaline Phosphatase Troponin I B-Natriuretic Peptide 1063.9 H Total Protein Albumin Globulin Albumin/Globulin Ratio Vitamin B12 TSH 2.36 Urine Color Urine Clarity Urine pH Ur Specific [place] Urine Protein Urine Glucose (UA) Urine Ketones Urine Occult Blood Urine Nitrite Urine Bilirubin Urine Urobilinogen Ur Leukocyte Esterase Urine RBC Urine WBC Ur Squamous Epith Cells Urine Bacteria Urine Mucus MRSA (PCR) POC Glucose 08/20/19 08/20/19 08/20/19 14:25 17:30 18:17 WBC RBC Hgb Hct MCV MCH MCHC RDW Std Deviation RDW Coeff of Alicia Plt Count MPV Immature Gran % (Auto) Neut % (Auto) Lymph % (Auto) [place] % (Auto) Eos % (Auto) Baso % (Auto) Absolute Neuts (auto) Absolute Lymphs (auto) Nucleated RBC % Differential Comment Ovalocytes Stomatocytes Retic Count Immature Retic Fraction Retic Hgb Equivalent PT INR APTT Sodium Potassium Chloride Carbon Dioxide Anion Gap BUN Creatinine Estim Creat Clear Calc Est GFR (MDRD) Af Amer Est GFR (MDRD) Non-Af BUN/Creatinine Ratio Glucose Lactic Acid Calcium Phosphorus Magnesium Iron TIBC Iron Saturation Ferritin Total Bilirubin AST ALT Alkaline Phosphatase Troponin I 0.047 H B-Natriuretic Peptide Total Protein Albumin Globulin Albumin/Globulin Ratio Vitamin B12 TSH Urine Color Yellow Urine Clarity Clear Urine pH 6.0 Ur Specific [place] 1.010 Urine Protein 15 H Urine Glucose (UA) Normal Urine Ketones Negative Urine Occult Blood Negative Urine Nitrite Positive H Urine Bilirubin Negative Urine Urobilinogen Normal Ur Leukocyte Esterase Negative Urine RBC 0 SEEN Urine WBC 0 SEEN Ur Squamous Epith Cells 0 SEEN Urine Bacteria 4+ Urine Mucus 0 SEEN MRSA (PCR) POC Glucose 103 08/20/19 08/20/19 08/20/19 18:30 20:20 22:21 WBC RBC Hgb Hct MCV MCH MCHC RDW Std Deviation RDW Coeff of Alicia Plt Count MPV Immature Gran % (Auto) Neut % (Auto) Lymph % (Auto) [place] % (Auto) Eos % (Auto) Baso % (Auto) Absolute Neuts (auto) Absolute Lymphs (auto) Nucleated RBC % Differential Comment Ovalocytes Stomatocytes Retic Count Immature Retic Fraction Retic Hgb Equivalent PT INR APTT Sodium Potassium Chloride Carbon Dioxide Anion Gap BUN Creatinine Estim Creat Clear Calc Est GFR (MDRD) Af Amer Est GFR (MDRD) Non-Af BUN/Creatinine Ratio Glucose Lactic Acid 0.9 Calcium Phosphorus Magnesium Iron TIBC Iron Saturation Ferritin Total Bilirubin AST ALT Alkaline Phosphatase Troponin I 0.046 H B-Natriuretic Peptide Total Protein Albumin Globulin Albumin/Globulin Ratio Vitamin B12 TSH Urine Color Urine Clarity Urine pH Ur Specific [place] Urine Protein Urine Glucose (UA) Urine Ketones Urine Occult Blood Urine Nitrite Urine Bilirubin Urine Urobilinogen Ur Leukocyte Esterase Urine RBC Urine WBC Ur Squamous Epith Cells Urine Bacteria Urine Mucus MRSA (PCR) POC Glucose 79 08/21/19 08/21/19 08/21/19 03:10 03:10 03:10 WBC 6.9 RBC 2.70 L Hgb 8.1 L Hct 28.0 L MCV 103.7 H MCH 30.0 MCHC 28.9 L RDW Std Deviation 65.1 H RDW Coeff of Alicia 17.1 H Plt Count 210 MPV 10.2 Immature Gran % (Auto) 0.100 Neut % (Auto) 73.1 H Lymph % (Auto) 14.3 L [place] % (Auto) 8.9 Eos % (Auto) 3.2 Baso % (Auto) 0.4 Absolute Neuts (auto) 5.0 Absolute Lymphs (auto) 0.98 Nucleated RBC % 0 Differential Comment SCANNED Ovalocytes RARE Stomatocytes RARE Retic Count Immature Retic Fraction Retic Hgb Equivalent PT INR APTT Sodium 141 Potassium 4.1 Chloride 98 Carbon Dioxide 39.0 H Anion Gap 4 L BUN 38 H Creatinine 0.98 Estim Creat Clear Calc 35.13 Est GFR (MDRD) Af Amer 70 Est GFR (MDRD) Non-Af 58 L BUN/Creatinine Ratio 38.7 H Glucose 86 Lactic Acid Calcium 8.2 L Phosphorus 4.3 Magnesium 1.9 Iron TIBC Iron Saturation Ferritin Total Bilirubin 0.80 AST 18 ALT 11 L Alkaline Phosphatase 115 Troponin I B-Natriuretic Peptide Total Protein 6.5 Albumin 2.1 L Globulin 4.4 H Albumin/Globulin Ratio 0.5 L Vitamin B12 TSH Urine Color Urine Clarity Urine pH Ur Specific [place] Urine Protein Urine Glucose (UA) Urine Ketones Urine Occult Blood Urine Nitrite Urine Bilirubin Urine Urobilinogen Ur Leukocyte Esterase Urine RBC Urine WBC Ur Squamous Epith Cells Urine Bacteria Urine Mucus MRSA (PCR) POC Glucose 08/21/19 08/21/19 08/21/19 03:10 07:42 12:13 WBC RBC Hgb Hct MCV MCH MCHC RDW Std Deviation RDW Coeff of Alicia Plt Count MPV Immature Gran % (Auto) Neut % (Auto) Lymph % (Auto) [place] % (Auto) Eos % (Auto) Baso % (Auto) Absolute Neuts (auto) Absolute Lymphs (auto) Nucleated RBC % Differential Comment Ovalocytes Stomatocytes Retic Count Immature Retic Fraction Retic Hgb Equivalent PT INR APTT Sodium Potassium Chloride Carbon Dioxide Anion Gap BUN Creatinine Estim Creat Clear Calc Est GFR (MDRD) Af Amer Est GFR (MDRD) Non-Af BUN/Creatinine Ratio Glucose Lactic Acid Calcium Phosphorus Magnesium Iron TIBC Iron Saturation Ferritin Total Bilirubin AST ALT Alkaline Phosphatase Troponin I B-Natriuretic Peptide Total Protein Albumin Globulin Albumin/Globulin Ratio Vitamin B12 TSH Urine Color Urine Clarity Urine pH Ur Specific [place] Urine Protein Urine Glucose (UA) Urine Ketones Urine Occult Blood Urine Nitrite Urine Bilirubin Urine Urobilinogen Ur Leukocyte Esterase Urine RBC Urine WBC Ur Squamous Epith Cells Urine Bacteria Urine Mucus MRSA (PCR) Negative POC Glucose 81 151 H 08/21/19 08/21/19 08/21/19 13:48 13:48 13:48 WBC RBC Hgb Hct MCV MCH MCHC RDW Std Deviation RDW Coeff of Alicia Plt Count MPV Immature Gran % (Auto) Neut % (Auto) Lymph % (Auto) [place] % (Auto) Eos % (Auto) Baso % (Auto) Absolute Neuts (auto) Absolute Lymphs (auto) Nucleated RBC % Differential Comment Ovalocytes Stomatocytes Retic Count 1.43 Immature Retic Fraction 27.40 H Retic Hgb Equivalent 33.6 PT INR APTT Sodium Potassium Chloride Carbon Dioxide Anion Gap BUN Creatinine Estim Creat Clear Calc Est GFR (MDRD) Af Amer Est GFR (MDRD) Non-Af BUN/Creatinine Ratio Glucose Lactic Acid Calcium Phosphorus Magnesium Iron 34 L TIBC 246 L Iron Saturation 13.8 L Ferritin 298 H Total Bilirubin AST ALT Alkaline Phosphatase Troponin I B-Natriuretic Peptide Total Protein Albumin Globulin Albumin/Globulin Ratio Vitamin B12 564 TSH Urine Color Urine Clarity Urine pH Ur Specific [place] Urine Protein Urine Glucose (UA) Urine Ketones Urine Occult Blood Urine Nitrite Urine Bilirubin Urine Urobilinogen Ur Leukocyte Esterase Urine RBC Urine WBC Ur Squamous Epith Cells Urine Bacteria Urine Mucus MRSA (PCR) POC Glucose 08/21/19 08/21/19 08/22/19 16:09 22:56 03:10 WBC 10.4 RBC 2.63 L Hgb 7.9 L Hct 27.5 L MCV 104.6 H MCH 30.0 MCHC 28.7 L RDW Std Deviation 65.1 H RDW Coeff of Alicia 17.2 H Plt Count 221 MPV 10.7 Immature Gran % (Auto) Neut % (Auto) Lymph % (Auto) [place] % (Auto) Eos % (Auto) Baso % (Auto) Absolute Neuts (auto) Absolute Lymphs (auto) Nucleated RBC % Differential Comment SCANNED Ovalocytes Stomatocytes Retic Count Immature Retic Fraction Retic Hgb Equivalent PT INR APTT Sodium Potassium Chloride Carbon Dioxide Anion Gap BUN Creatinine Estim Creat Clear Calc Est GFR (MDRD) Af Amer Est GFR (MDRD) Non-Af BUN/Creatinine Ratio Glucose Lactic Acid Calcium Phosphorus Magnesium Iron TIBC Iron Saturation Ferritin Total Bilirubin AST ALT Alkaline Phosphatase Troponin I B-Natriuretic Peptide Total Protein Albumin Globulin Albumin/Globulin Ratio Vitamin B12 TSH Urine Color Urine Clarity Urine pH Ur Specific [place] Urine Protein Urine Glucose (UA) Urine Ketones Urine Occult Blood Urine Nitrite Urine Bilirubin Urine Urobilinogen Ur Leukocyte Esterase Urine RBC Urine WBC Ur Squamous Epith Cells Urine Bacteria Urine Mucus MRSA (PCR) POC Glucose 195 H 264 H 08/22/19 03:10 WBC RBC Hgb Hct MCV MCH MCHC RDW Std Deviation RDW Coeff of Alicia Plt Count MPV Immature Gran % (Auto) Neut % (Auto) Lymph % (Auto) [place] % (Auto) Eos % (Auto) Baso % (Auto) Absolute Neuts (auto) Absolute Lymphs (auto) Nucleated RBC % Differential Comment Ovalocytes Stomatocytes Retic Count Immature Retic Fraction Retic Hgb Equivalent PT INR APTT Sodium 138 Potassium 4.3 Chloride 95 L Carbon Dioxide 37.0 H Anion Gap 6 BUN 42 H Creatinine 1.44 H Estim Creat Clear Calc 23.90 Est GFR (MDRD) Af Amer 45 L Est GFR (MDRD) Non-Af 37 L BUN/Creatinine Ratio 29.2 H Glucose 275 H Lactic Acid Calcium 8.0 L Phosphorus Magnesium 1.7 Iron TIBC Iron Saturation Ferritin Total Bilirubin AST ALT Alkaline Phosphatase Troponin I B-Natriuretic Peptide Total Protein Albumin Globulin Albumin/Globulin Ratio Vitamin B12 TSH Urine Color Urine Clarity Urine pH Ur Specific [place] Urine Protein Urine Glucose (UA) Urine Ketones Urine Occult Blood Urine Nitrite Urine Bilirubin Urine Urobilinogen Ur Leukocyte Esterase Urine RBC Urine WBC Ur Squamous Epith Cells Urine Bacteria Urine Mucus MRSA (PCR) POC Glucose Microbiology 08/20/19 14:25 Urine, Catheterized Urine Culture - Preliminary Presumptive E. coli 08/20/19 14:10 Blood Culture (Wb) - Anticubital Right Blood Culture - Preliminary 08/21/19 04:00 Urine, Random Legionella Antigen - Final 08/21/19 04:00 Urine, Random Streptococcus pneumoniae Antigen (M - Final 08/20/19 17:10 Mucosa - Nose Respiratory Panel (PCR) - Final 08/20/19 14:00 Mucosa - Nose Influenza Types A,B Direct FA (BERINCE) - Final Clinical Impression(s) from Imaging Studies Chest X-Ray 08/20/19 14:45 IMPRESSION: Progressive right lower lobe infiltrate. Electronically Signed: Yonatan Howe, at 15:17 EDT , Service support , Chest CT 08/20/19 18:48 IMPRESSION: Moderate to large right pleural effusion. Marked atelectasis of the right lower lobe. Small left pleural effusion. Mild atelectasis of the left lower lobe. Pneumonia not excluded in the areas of atelectasis. Electronically Signed: Jasen Bright MD at 22:17 EDT , Service support , Medical Necessity - Tobacco Use Smoking Status: Never smoker Tobacco Use: Non-smoker Assessment/Plan All Active Problems (Last Reviewed 07/15/19 @ 13:20 by Alessandra Valdivia) Hypoglycemia (Acute) CHF exacerbation (Acute) Pneumonia (Acute) Encephalopathy acute (Acute) Severe sepsis (Acute) Atrial fibrillation with RVR (Acute) HCAP (healthcare-associated pneumonia) (Acute) Recurrent right pleural effusion (Acute) Pulmonary hypertension (Acute) Cardiogenic shock (Acute) Bradycardia (Acute) Renal failure (ARF), acute on chronic (Acute) Acute hyperkalemia (Acute) Debility (Acute) Unresponsiveness (Resolved) History of respiratory failure with hypo (Resolved) Anemia (Ruled-out) RECOMMENDATIONS: 1. Continue antimicrobials. 2. Continue amiodarone and resume home beta-uddley regimen. Cardiology consultation pending. 3. Wean supplemental oxygen to maintain saturations at or above 90%. 4. Eliquis now on hold for possible thoracentesis. IMPRESSIONS: 1. Severe sepsis CT chest is more concerning for decompensated heart failure given moderate to large right-sided pleural effusion and small left pleural effusion. BNP was also elevated greater than 1000. The patient was just hospitalized for influenza and was noted to have a cough at that time, which has persisted. Therefore, the patient's presenting cough is not a new finding. The patient has remained afebrile without evidence of an elevated white blood cell count. The patient appears to have an E. coli urinary tract source of infection. I have a low clinical index of suspicion for underlying COVID infection. Continue antimicrobials to address urinary tract source of infection. 2. Paroxysmal atrial fibrillation/heart failure with preserved ejection fraction/pulmonary hypertension/RV dysfunction The patient remains in atrial fibrillation with a rapid ventricular rate. Cardiology is currently following to assist with medical management. 3. COPD/diabetes mellitus/hypertension/hyperlipidemia Complicates care, management, recovery and prognosis. Continue home medications as indicated. This note was generated with [employer] dictation software. It may contain incorrect words, spelling, and punctuation that were not noted in checking the note before signing. Inpatient E&M: 87209 Subs Hosp L2
[2019-08-22] MEDS: Ipratropium 0.5 MG/2.5 ML SOLUTION INHALATION ×5 (06:44→23:00)
--- NOTE | 2019-08-22 07:23 | PCM.PN.HOSP ---
Patient Problems: Active and Suspected Problems (Last Reviewed 07/15/19 @ 13:20 by Alessandra Valdivia) Severe sepsis (Acute) Atrial fibrillation with RVR (Acute) HCAP (healthcare-associated pneumonia) (Acute) Reason for Visit: Congestive heart failure, A. fib with RVR Subjective: Seen remains in A. fib with RVR still on amiodarone drip. Consult was placed to cardiology. Objective: GENERAL: cooperative HEENT: Atraumatic; EYES; Anicteric, Normal Conjunctiva NECK; supple, normal thyroid, RESPIRATORY: Diminished to auscultation CARDIOVASCULAR: Irregular irregular tachycardic GI: soft, normoactive bowel sounds, : No Renal angle tenderness; EXTREMITIES: Bipedal edema edema, no clubbing, MUSCULOSKELETAL: no muscle waisting NEURO: Awake; no lateralizing signs. SKIN: No Rash PSYCH; Flat affect Vitals/I&O's: Vital Signs Temp Pulse Resp BP Pulse Ox 96.7 F L 136 H 18 106/60 98 08/22/19 00:00 08/22/19 06:44 08/22/19 06:44 08/22/19 06:00 08/22/19 06:44 Oxygen Flow Rate (L/min) 1 Oxygen Delivery Method Nasal Cannula Weight: 102.5 kg Body Mass Index (BMI) 42.1 Finger Stick Blood Glucose 62 Intake and Output for Last 24 Hours 08/20/19 08/21/19 08/22/19 23:59 23:59 23:59 Intake Total 148.33 / 348.33 3305.25 / 3305.25 250 / 250 Output Total 550 / 550 150 / 150 Balance 148.33 / 248.33 2755.25 / 2755.25 100 / 100 Microbiology Past 72 Hours 08/20/19 14:25 Urine, Catheterized Urine Culture - Preliminary Presumptive E. coli 08/20/19 14:10 Blood Culture (Wb) - Anticubital Right Blood Culture - Preliminary 08/21/19 04:00 Urine, Random Legionella Antigen - Final 08/21/19 04:00 Urine, Random Streptococcus pneumoniae Antigen (M - Final 08/20/19 17:10 Mucosa - Nose Respiratory Panel (PCR) - Final 08/20/19 14:00 Mucosa - Nose Influenza Types A,B Direct FA (BERNICE) - Final Laboratory Results 08/21/19 03:10: Phosphorus 4.3 08/21/19 07:42: POC Glucose 81 08/21/19 12:13: POC Glucose 151 H 08/21/19 13:48: Retic Count 1.43, Immature Retic Fraction 27.40 H, Retic Hgb Equivalent 33.6 08/21/19 13:48: Vitamin B12 564 08/21/19 13:48: Iron 34 L, TIBC 246 L, Iron Saturation 13.8 L, Ferritin 298 H 08/21/19 16:09: POC Glucose 195 H 08/21/19 22:56: POC Glucose 264 H 08/22/19 03:10: WBC 10.4, RBC 2.63 L, Hgb 7.9 L, Hct 27.5 L, MCV 104.6 H, MCH 30.0, MCHC 28.7 L, RDW Std Deviation 65.1 H, RDW Coeff of Alicia 17.2 H, Plt Count 221, MPV 10.7, Differential Comment SCANNED 08/22/19 03:10: Sodium 138, Potassium 4.3, Chloride 95 L, Carbon Dioxide 37.0 H, Anion Gap 6, BUN 42 H, Creatinine 1.44 H, Estim Creat Clear Calc 23.90, Est GFR (MDRD) Af Amer 45 L, Est GFR (MDRD) Non-Af 37 L, BUN/Creatinine Ratio 29.2 H, Glucose 275 H, Calcium 8.0 L, Magnesium 1.7 Current Medications Acetaminophen (Tylenol) 650 mg PO Q6H PRN PRN PRN Reason: Pain Score 1-10/Temp > 100.7 F Al Hydroxide/Mg Hydroxide (Mylanta Ii) 30 ml PO Q6H PRN PRN PRN Reason: Gastric Burning Albuterol Sulfate (Ventolin Aerosols) 2.5 mg INHALATION Q2H PRN PRN PRN Reason: SOB/Wheezing Apixaban (Eliquis) 2.5 mg PO BID [facility] Last Admin: 08/21/19 22:58 Dose: 2.5 mg Documented by: Atorvastatin Calcium (Lipitor) 20 mg PO QHS [facility] Last Admin: 08/21/19 22:59 Dose: 20 mg Documented by: Dextrose (D50w Syringe) 0 gm IV X1 PRN; Protocol PRN Reason: Hypoglycemia Glucagon () 1 mg IM .X1 PRN PRN Reason: Hypoglycemia Guaifenesin (Robitussin) 10 ml PO Q4H PRN PRN PRN Reason: COUGH Hydralazine HCl (Apresoline Iv) 10 mg IV Q4H PRN PRN PRN Reason: SBP > 160 Piperacillin Sod/Tazobactam (Sod 3.375 gm/ Sodium Chloride) 50 mls @ 12.5 mls/hr IV Q8 [facility] Stop: 08/27/19 22:01 Last Admin: 08/22/19 05:02 Dose: 12.5 mls/hr Documented by: Sodium Chloride () 250 mls @ 15 mls/hr IV .[id number] PRN PRN Reason: Saline Flush Last Infusion: 08/21/19 23:00 Dose: 0 mls/hr Documented by: Sodium Chloride () 250 mls @ 15 mls/hr IV .[id number] PRN PRN Reason: Additional IVPB Infusion Amiodarone HCl 360 mg/ (Dextrose) 200 mls @ 16.667 mls/hr CONT INF .Q12H [facility] Stop: 08/22/19 08:59 Last Admin: 08/22/19 05:01 Dose: 0.5 mg/min, 16.7 mls/hr Documented by: Insulin Human Lispro (Humalog Kwikpen (Bkc)) 0 unit SC ACHS [facility]; Protocol Last Admin: 08/21/19 22:57 Dose: 2 u Documented by: Ipratropium [place] (Atrovent) 0.5 mg INHALATION Q4H.RT [facility] Last Admin: 08/22/19 06:44 Dose: 0.5 mg Documented by: Metoprolol Tartrate (Lopressor (Beta Lucina)) 25 mg PO BID [facility] Mirtazapine (Remeron) 7.5 mg PO QHS [facility] Last Admin: 08/21/19 22:58 Dose: 7.5 mg Documented by: Multi-Ingredient Cream (Eucerin) 1 applic TOPICAL 2200 [facility]; Protocol Last Admin: 08/21/19 22:57 Dose: 1 applicatio Documented by: Nitroglycerin (Nitrostat) 0.4 mg SUBLINGUAL Q5M PRN PRN Reason: CARDIAC/CHEST PAIN Nutritional Formula (Lactose Free) (Glucerna Shake) 120 ml PO 4X/DAY [facility] Last Admin: 08/21/19 22:57 Dose: Not Given Documented by: Ondansetron HCl (Zofran) 4 mg IV Q8H PRN PRN PRN Reason: NAUSEA/VOMITING Pantoprazole Sodium (Protonix) 40 mg PO DAILY [facility] Last Admin: 08/21/19 09:38 Dose: 40 mg Documented by: Polysaccharide [facility] ([facility]rex 150) [facility] Last Admin: 08/21/19 07:53 Dose: 150 mg Documented by: Prochlorperazine Edisylate (Compazine Iv) 5 mg IV Q4H PRN PRN PRN Reason: Breakthrough Nausea/Vomiting Sodium Chloride () 10 - 40 ml IV UD PRN PRN Reason: SALINE FLUSH Last Admin: 08/21/19 12:18 Dose: 10 ml Documented by: Throat Lozenges (Cepacol Sore Throat Lozenge) 1 lozenge MUCOUS MEM Q2H PRN PRN PRN Reason: SORE THROAT Trazodone HCl (Desyrel) 50 mg PO QHS [facility] Last Admin: 08/21/19 22:58 Dose: 50 mg Documented by: STROKE Vital Signs/Narrative: Vital Signs Pulse Resp BP Pulse Ox 08/22/19 06:44 136 H 18 98 08/22/19 06:00 125 H 20 H 106/60 99 08/22/19 05:00 114 H 15 119/55 L 98 08/22/19 04:00 101 H 17 101/55 L 100 Medical Necessity - Tobacco Use Smoking Status: Never smoker Tobacco Use: Non-smoker Assessment/Plan All Active Problems (Last Reviewed 07/15/19 @ 13:20 by Alessandra Valdivia) Hypoglycemia (Acute) CHF exacerbation (Acute) Pneumonia (Acute) Encephalopathy acute (Acute) Severe sepsis (Acute) Atrial fibrillation with RVR (Acute) HCAP (healthcare-associated pneumonia) (Acute) Cardiogenic shock (Acute) Bradycardia (Acute) Renal failure (ARF), acute on chronic (Acute) Acute hyperkalemia (Acute) Debility (Acute) Unresponsiveness (Resolved) History of respiratory failure with hypo (Resolved) Anemia (Ruled-out) Patient is a 78-year-old lady with recent hospitalization for influenza A infection with superimposed COPD exacerbation as well as congestive heart failure presented back to the emergency department shortness of breath. Progressive left lower lobe infiltrate and assessment of severe sepsis was made admitted to a monitored bed for subsequent management 1. Severe sepsis ?Secondary to pneumonia with suspected gram-negative organisms. Patient was managed with broad-spectrum antibiotics per protocol after cultures have been obtained. There was suspicion for acute viral syndrome COVID 19 patient CXR as well as her presentation was felt not to be consistent. Isolation discontinued -08/22/2019: Patient seen cultures have remained negative to date. 2. Paroxysmal A. fib with RVR ?Cardizem was initiated on admission with plans to titrate to keep heart rate less than 100. Cardizem drip was discontinued started on amiodarone following episodes of low blood pressure systemic anticoagulation with apixaban -08/22/2019: Patient seen still remains in A. fib with rapid ventricular response and on amiodarone drip. 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 3. Acute on chronic congestive heart failure ?Patient is on diuretics as well as supplemental oxygen 4. Bilateral pleural effusion - with moderate to large right pleural effusion as well as small left pleural effusion this was felt to be secondary to patient acute congestive heart failure currently being managed with diuresis -08/22/2019; use of diuretic limited by patient relatively low blood pressure. Patient apixaban was therefore held and an order placed for ultrasound-guided thoracocentesis 5. 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 Placed on long acting insulin, Accu-Cheks a.c. and at bedtime and covered with sliding scale insulin 5. Anemia ?Secondary to anemia of chronic disorder did request for iron studies. Monitoring H&H with plans to transfuse if patient becomes symptomatic or hemoglobin falls below 7 7. GERD ?Patient is on PPI did continue 8. Dyslipidemia ~patient is on statin therapy, continued at home dose 9. COPD ?Currently not in exacerbation aerosol treatment as needed 10. Chronic kidney disease stage IV ?Secondary to diabetic nephropathy kidney function at baseline 11. Essential hypertension ?Patient blood pressure was low antihypertensive is currently being held with subsequent monitoring 12. Depression with anxiety ?Is on Remeron at night 13. DVT prophylaxis: - apixaban. 01/22/2020; patient's daughter updated on patient's progress and management plan moving forward. Inpatient E&M: [id number] [facility] L3
[2019-08-22] MEDS: Iron Polysaccharide Complex 150 MG CAPSULE PO (08:21)
[2019-08-22] MEDS: Insulin Lispro 100 UNIT/ML INSULN.PEN SC ×4 (08:21→21:59)
[2019-08-22] MEDS: Metoprolol Tartrate 25 MG Tablet PO ×2 (08:21→22:00)
[2019-08-22 08:30] LABS: Bedside Glucose 221 mg/dL (70-110)
--- NOTE | 2019-08-22 09:09 | CON.PCM_ITS ---
Problem List (1) Recurrent right pleural effusion Status: Acute (2) Atrial fibrillation with RVR Status: Acute (3) CHF (congestive heart failure) Status: Chronic Qualifiers: Heart failure type: diastolic Heart failure chronicity: chronic Qualified Code(s): I50.32 - Chronic diastolic (congestive) heart failure (4) Paroxysmal atrial fibrillation Status: Chronic (5) CKD (chronic kidney disease) Status: Chronic Qualifiers: Chronic kidney disease stage: stage 4 (severe) Qualified Code(s): N18.4 - Chronic kidney disease, stage 4 (severe) (6) Essential hypertension Status: Chronic (7) DM2 (diabetes mellitus, type 2) Status: Chronic Qualifiers: Diabetes mellitus salvage determiner insulin use: with salvage determiner use Diabetes mellitus complication status: with other specified complication Qualified Code(s): E11.69 - Type 2 diabetes mellitus with other specified complication; Z79.4 - residential (current) use of insulin (8) Hyperlipidemia Status: Chronic Qualifiers: Hyperlipidemia type: unspecified Qualified Code(s): E78.5 - Hyperlipidemia, unspecified (9) Pulmonary hypertension Status: Acute Reason for Consult Date of Consultation: 08/22/19 Reason for Consultation: Atrial fibrillation, recurrent right pleural effusion, hypertension, COPD, [facility] resident History of Present Illness: The patient is a 78 year old F, currently residing in a [facility], well-known to me, recently seen in the office now admitted for recurrent atrial fibrillation and right pleural effusion. Details: Mrs Bacon is a very pleasant 78-year-old female with a history of diabetes, hypertension, COPD, hyperlipidemia, acute on chronic renal failure, paroxysmal atrial fibrillation, sick sinus syndrome. She apparently was admitted in mid May 2019 with what appears to be hyperkalemia with a potassium 7.5, acute on chronic renal failure, prolonged QRS, cardiopulmonary arrest requiring CPR and intubation. At that time her OPAL inhibitor, potassium, Lasix, and Aldactone were all held. She was then transferred to TCU. She then returned on 07/14/2019 with Proteus and E. coli UTI and subsequently discharged back to TCU. Since then she is a chronic Garcia catheter with hematuria in it, gradually decreasing hemoglobin, her Lasix has been restarted, as has her Eliquis. In addition she is on flecainide therapy. Initially she presented in March 2019 with Mauricio nelson with RVR to her PCPs office, was sent to [place] [facility] followed by [facility] for around 2 days. She was found to have an open sore on her foot and was sent home. She then developed sepsis and went to [facility] on 04/27/2019 where she was found to have methicillin sensitive staph aureus bacteremia and subsequently sent home on nafcillin until 06/06/2019.. Her sick sinus syndrome has been unable to be addressed due to her frequent infections. Patient underwent an a transesophageal echocardiogram in 04/23/2019 which showed normal LV size and function mild RV dilatation normal RV function, moderate left atrial and moderate right atrial enlargement, mild pulmonary pretension, no evidence of vegetations or infectious endocarditis. Patient now resides in TCU, and she underwent a Garcia implantation several days ago and now has jessica hematuria and dark brown residue in her Garcia bag indicating possible ATN. She is unaware of her atrial fibrillation. She has had a mini stroke in the past, with minimal deficits if any. He is on chronic Eliquis therapy. While residing in the [facility], patient was found to be in rapid atrial fibrillation, and transferred to [facility] ER. She denied any chest pain, angina, but did complain of dyspnea and positional orthopnea. Chest x-ray was performed which demonstrated at least a moderate right pleural effusion and a smaller left pleural effusion. CT scan was performed which showed a large right pleural effusion, a small left pleural effusion, no evidence of pulmonary emboli. Patient denied any anginal symptoms. She was placed on IV amiodarone drip, but for some reason her Eliquis was not held upon admission and her effusion has not been addressed as of yet. [] Past Medical History Allergies/Adverse Reactions: Allergies Penicillins [PCN] Allergy (Verified 08/20/19 13:39) Other shellfish derived Allergy (Verified 08/20/19 13:39) Other Home Medications: Ambulatory Orders Medication Instructions Recorded Alendronate Sodium 70 mg PO ELIZONDO 06/16/19 Ipratropium/Albuterol Sulfate 3 ml INHALATION Q6H PRN PRN 06/16/19 [Duoneb] Metoprolol Tartrate 25 mg PO BID 06/16/19 Simvastatin 40 mg PO QHS 06/16/19 traZODone [Desyrel] 50 mg PO QHS 06/16/19 Apixaban [Eliquis] 2.5 mg PO BID 08/20/19 Cholecalciferol (VIT D3) [Vitamin 1,000 unit PO DAILY 08/20/19 D3] Fluticasone Propion/Salmeterol 1 ea INHALATION BID 08/20/19 [Wixela 250-50 Inhub] Furosemide [Lasix] 40 mg PO DAILY 08/20/19 Glimepiride [Amaryl] 1 mg PO DAILY 08/20/19 Guaifenesin [Robitussin] 10 ml PO Q4H PRN PRN 08/20/19 Insulin Lispro [Humalog] See Protocol SQ TID 08/20/19 Iron Polysaccharide Complex 150 mg PO DAILYCM 08/20/19 [Ferrex 150] Mineral Oil/Petrolatum,White 1 applic TOPICAL 2200 08/20/19 [Eucerin] Mirtazapine [Remeron] 7.5 mg PO QHS 08/20/19 Pantoprazole Sodium [Protonix] 40 mg PO DAILY 08/20/19 Polyethylene Glycol 3350 [Miralax] 17 gm PO DAILY 08/20/19 Senna/Docusate Sodium [Senokot-S] 1 tab PO BID 08/20/19 Past Medical History (Chronic Problems): Chronic Problems (Last Reviewed 07/15/19 @ 13:20 by Alessandra Valdivia) Anxiety and depression (Chronic) CHF (congestive heart failure) (Chronic) CKD (chronic kidney disease), stage IV (Chronic) History of respiratory failure (Chronic) extubated 06/18/2019 @ [facility] Paroxysmal atrial fibrillation (Chronic) Sick sinus syndrome (Chronic) Edema (Chronic) Anticoagulant long-term use (Chronic) Anemia, unspecified (Chronic) CKD (chronic kidney disease) (Chronic) Essential hypertension (Chronic) DM2 (diabetes mellitus, type 2) (Chronic) COPD (chronic obstructive pulmonary disease) (Chronic) GERD (gastroesophageal reflux disease) (Chronic) Methicillin resistant Staph aureus culture positive (Chronic) Cellulitis of right ankle (Chronic) Osteoporosis (Chronic) Anxiety (Chronic) GERD (gastroesophageal reflux disease) (Chronic) Insomnia (Chronic) Hyperlipidemia (Chronic) Surgical History: - - Cholecystectomy, multiple foot surgeries, arthroscopic knee surgery, tubal ligation, tonsillectomy, hemorrhoidectomy. 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 Paternal History Items: - - Patient denies any market maternal family history including heart disease, diabetes or cancer. Lives: Longterm Smoking Status: Never smoker Tobacco Use: Non-smoker Alcohol: None Drugs: None Review of Systems - Review of Systems General: Denies: Fever, Night Sweats, Fatigue Cardiovascular: Reports: Shortness of Breath, Shortness of Breath at Rest, Orthopnea. Denies: Chest Discomfort, PND, Peripheral Edema, Palpitations, Lightheadedness, Dizziness, Near Syncope, Syncope Respiratory: Reports: Cough. Denies: Sputum Production, Hemoptysis Gastrointestinal: Denies: Hematemesis, Hematochezia, Melena Genitourinary: Denies: Dysuria, Hematuria Skin: Denies: Rash Subjectve: Patient in bed, resting comfortably, no acute distress, amiodarone drip infusing. Objective: Vital Signs Temp Pulse Resp BP Pulse Ox 96.7 F L 132 H 18 106/60 98 08/22/19 00:00 08/22/19 08:21 08/22/19 06:44 08/22/19 06:00 08/22/19 06:44 Oxygen Flow Rate (L/min) 1 Oxygen Delivery Method Nasal Cannula Weight: 225 lb 15.581 oz Body Mass Index (BMI) 42.1 Finger Stick Blood Glucose 62 Intake and Output for Last 24 Hours 08/20/19 08/21/19 08/22/19 23:59 23:59 23:59 Intake Total 148.33 / 348.33 3305.25 / 3305.25 250 / 250 Output Total 550 / 550 150 / 150 Balance 148.33 / 248.33 2755.25 / 2755.25 100 / 100 General: Awake, Alert, Oriented x 3 HEENT: PERRL, EOMI, Sclera Non Icteric Neck: Supple, Good ROM, No Lymph Node Enlargement Lungs: Diminished Right Base, Rales - Right Base Cardiovascular: Irregular Rhythm, Normal S2, No Rubs, No Gallops Murmur Murmur: Grade 2/6, Holosystolic Vascular: No Carotid Bruits, Normal Femoral Pulses, Normal Radial Pulses, Normal Dorsalis Pedal Pulse, Normal Posterior Tibial Pulses Abdomen: Bowel Sounds Present, Soft, Non Tender, No HSM, No Organomegaly Extremities: No Cyanosis, No Clubbing, No edema Neurological: No Focal Motor or Sensory Deficit 08/21/19 13:48: Iron 34 L, TIBC 246 L, Iron Saturation 13.8 L, Ferritin 298 H 08/22/19 03:10: WBC 10.4, RBC 2.63 L, Hgb 7.9 L, Hct 27.5 L, MCV 104.6 H, MCH 30.0, MCHC 28.7 L, Plt Count 221, MPV 10.7 08/22/19 03:10: Sodium 138, Potassium 4.3, Chloride 95 L, Carbon Dioxide 37.0 H, Anion Gap 6, BUN 42 H, Creatinine 1.44 H, Est GFR (MDRD) Af Amer 45 L, Est GFR (MDRD) Non-Af 37 L, BUN/Creatinine Ratio 29.2 H, Glucose 275 H, Calcium 8.0 L, Magnesium 1.7 Rhythm: EKG: ECHO: Mild concentric left ventricular hypertrophy. The estimated ejection fraction is 65 %. Stage 2 diastolic dysfunction. Severely dilated right ventricle. Moderate segmental dysfunction of right ventricle. Moderately severe (3+) tricuspid valve insufficiency. Right ventricular systolic pressure estimated to be 60 mmHg. Small left pleural effusion. There is no comparison study available. Stress Test: Cardiac Cath: PCI: CT Surgery: Holter monitor: EPS: PPM: CXR: Chest CT Scan: Assessment/Plan 1. Right pleural effusion: Patient has recurrent right pleural effusion, and has had previous thoracentesis in the past per the patient. Her chest CT demonstrates a large right pleural effusion which is no doubt contributing to the patient's dyspnea, shortness of breath and rapid ventricular response. Will be difficult to get control of her heart rate until her pleural effusion has been evacuated. I have held her Eliquis today, I would request evaluation by Dr. Howe for therapeutic thoracentesis today. Her pleural effusions are most likely result of severe pulmonary hypertension. Would recommend starting Lasix 40 mg IV daily in an attempt to decompress her pulmonary pressures. This may be somewhat problematic given her relative hypotension. I would not pursue left-sided thoracentesis at this time. If the patient has recurrent right-sided pleural effusion consideration may want remain for pleurodesis therapy or Pleur-evac. 2. Atrial fibrillation: The patient has chronic persistent atrial fibrillation superimposed on severe pulmonary pretension and will most likely require lifelong anticoagulation therapy going forward. Recommend holding her Eliquis today to undergo thoracentesis at some point, and then restarting her Eliquis once her wound is healed. In the meantime I recommend continuing her Lopressor, and continuing IV amiodarone drip at least for 24 hours. The patient may require additional IV amiodarone but if her heart rate is better controlled I would switch her to amiodarone 40 mg p.o. twice daily for 5 days followed by 200 mg daily. 3. Thank you very much for the opportunity to participate in the cardiac care of your patient. Discussed with Dr. Looney. Consultation time took place between 830 and 9:17 AM.
[2019-08-22 09:30] LABS: LDH 209 U/L (84-246)
[2019-08-22] MEDS: Magnesium Sulfate 4gm/100mL 4 GM/100 ML IV.SOLN. IV (09:39)
[2019-08-22] MEDS: Pantoprazole Sodium 40 MG Tablet PO (09:49)
[2019-08-22 12:25] LABS: Bedside Glucose 266 mg/dL (70-110)
--- NOTE | 2019-08-22 12:59 | CASEMGMT ---
Social Work SW placed phone call to pt daughter Iman and discussed Palliative Medicine. SW explained program and benefits. Pt dgt would like more information on the program and is interested in a referral. SW gave options of companies and dgt would prefer [facility]. Phone call to Sherron at [facility] and referral made. Clinicals faxed. Sherron will contact pt dgt. TERA Pastor
--- NOTE | 2019-08-22 13:30 | US_ITS ---
PROCEDURE: ULTRASOUND GUIDED THORACENTESIS. DATE: August 22, 2019. INDICATION: Female, 78 years old. Right pleural effusion. PHYSICIAN: Yonatan Howe M.D. PROCEDURE: The risks, benefits, and alternatives to the procedure were explained to the patient. The specific risks of bleeding, infection, and pneumothorax requiring chest tube insertion were discussed and accepted. Written informed consent was obtained. Ultrasonographic evaluation of the right lower pleural space was carried out. An adequate pocket was identified. The patient was placed in the sitting, upright position. The overlying skin was prepped and draped in sterile fashion. 1% lidocaine was administered subcutaneously for local anesthesia. Under ultrasound guidance, a 5 Croatian thoracentesis needle/catheter system was advanced into the right posterior lower pleural fluid collection. Approximately 1050 mL of tammy-colored fluid was drained. The catheter was removed, and a sterile dressing was applied. A specimen was collected and sent to the laboratory for analysis, as requested by the referring clinician. The patient tolerated the procedure well. A chest x-ray was ordered. US/Thoracentesis W US IMPRESSION: Ultrasound-guided right thoracentesis. Electronically Signed: Yonatan Howe, at 15:40 EDT , Service support ,
--- NOTE | 2019-08-22 14:40 | CASEMGMT ---
STEW spoke with Lorraine from [facility] and she said their harbormaster wanted to know if patient was tested for the flu and/or Graf Virus. SW let her know patient was tested for the flu and had a respiratory panel which was negative. STEW explained physician did not feel patient needed tested for COVID-19. Plan: return to [facility] under skilled level of care. Kasey MERCEDES MSW
--- NOTE | 2019-08-22 15:05 | RAD_ITS ---
STUDY: X-RAY CHEST REASON FOR EXAM: Female, 78 years old. POST THORACENTESIS (ON RIGHT SIDE) TECHNIQUE: Frontal inspiration and expiration views following right thoracentesis. COMPARISON: Comparison is made with prior study dated August 11, 2019. FINDINGS: The patient is status post right thoracentesis. There is no evidence of pneumothorax. Minimal residual blunting of the right costophrenic angle. RAD/Chest Insp/Exp 2 View IMPRESSION: Status post right thoracentesis. Minimal residual blunting of the right costophrenic angle. No evidence of pneumothorax. Electronically Signed: Yonatan Howe, at 15:25 EDT , Service support ,
[2019-08-22 16:10] LABS: Bedside Glucose 221 mg/dL (70-110)
[2019-08-22 16:18] LABS: Body Fluid Mononuclear WBC # 0.154 10^3/uL; Body Fluid Mononuclear WBC % 84.2 %; Body Fluid Polynuclear WBC # 0.029 10^3/uL; Body Fluid Polynuclear WBC % 15.8 %; Body Fluid Total Cells Counted 0.217 10^3/ul; White Blood Count/Body Fluid 0.183 10^3/uL
[2019-08-22] MEDS: 0.9% Saline Lock 10 ML Syringe IV (16:25)
[2019-08-22 16:41] LABS: Glucose, Body Fluid 271 mg/dL (40-70); LDH,Body Fluid 70 Units/l (Not Establ.); Protein, Body Fluid 2.1 g/dL (Not Establ.)
[2019-08-22 18:07] LABS: Auto B Fluid Analyzer BKGD Ct COUNTS W/IN LIMITS (W/IN LIMITS); Color/Body Fluid YELLOW; Source- Body Fluid THORACENTESIS
[2019-08-22 18:08] LABS: Appearance/Body Fluid SL CLDY; Red Cell Count/Body Fluid 902 /mm3
[2019-08-22 18:09] LABS: Body Fluid QC Type(s) BF2Q; Lymphocytes 18 %; Monocytes 11 %; Neutrophil (Segs) 14 %; Other Cell Type/BF 57 %
[2019-08-22] MEDS: traZODone 50 MG Tablet PO (22:01)
[2019-08-22] MEDS: Atorvastatin Calcium 20 MG Tablet PO (22:01)
[2019-08-22] MEDS: Mirtazapine 15 MG Tablet 7.5 MG PO (22:01)
[2019-08-22 22:25] LABS: Bedside Glucose 231 mg/dL (70-110)
[2019-08-23] VITALS (29 sets, daily range): BP systolic 93–137; BP diastolic 38–73; PULSE 93–143; RESP 14–23; TEMP 35.9–36.9; O2SAT 92–99
[2019-08-23] MEDS: Ipratropium 0.5 MG/2.5 ML SOLUTION INHALATION ×6 (03:15→23:08)
[2019-08-23] MEDS: Amiodarone 360 MG in Dextrose 5% Viaflo Bag 192.8 ML 16.7 MG CONT INF (05:22)
[2019-08-23 05:37] LABS: Hematocrit 26.2 % (37-47); Hemoglobin 7.9 g/dL (12.0-15.0); Mean Corp Hgb Conc 30.2 g/dL (32-36); Mean Corpuscular Hgb 30.3 pg (27.0-32.0); Mean Corpuscular Volume 100.4 fL (81-99); Mean Platelet Vol. 10.7 fl (6.2-12.0); Platelet Count 231 K/mm3 (150-450); RBC Distribution Width CV 17.3 % (11.6-14.6); RBC Distribution Width SD 63.8 fl (35.1-43.9); Red Blood Count 2.61 M/mm3 (4.2-5.4); White Blood Count 9.8 K/mm3 (4.4-11.0)
[2019-08-23 05:54] LABS: Anion Gap 6 (5-15); BUN 40 mg/dL (7-18); BUN/Creat Ratio 31.7 RATIO (10-20); Calcium,Total 8.3 mg/dL (8.5-10.1); Chloride 95 mmol/L (98-107); Creatinine, Serum 1.26 mg/dL (0.55-1.02); EST Glomerular Filtration Rate 43 mL/min (>60); Est Glom Filt Rate - Afr Amer 53 mL/min (>60); Estimated Creatinine Clearance 27.32 ml/min; Glucose 229 mg/dL (74-106); Potassium 3.8 mmol/L (3.5-5.1); Sodium Level 137 mmol/L (136-145)
--- NOTE | 2019-08-23 07:15 | PN_ITS ---
Patient Problems: Active and Suspected Problems (Last Reviewed 07/15/19 @ 13:20 by Alessandra Valdivia) Severe sepsis (Acute) Atrial fibrillation with RVR (Acute) HCAP (healthcare-associated pneumonia) (Acute) Recurrent right pleural effusion (Acute) Pulmonary hypertension (Acute) Reason for Visit: A. fib with RVR, CHF, right-sided pleural effusion, Subjective: Patient underwent ultrasound-guided thoracocentesis on 08/22/2019 with almost 1 L of fluid taken off. Patient fluid analysis consistent with transudate per Light's Criteria Objective: GENERAL: cooperative HEENT: Atraumatic; EYES; Anicteric, Normal Conjunctiva NECK; supple, normal thyroid, RESPIRATORY: Diminished to auscultation CARDIOVASCULAR: Irregular irregular tachycardic GI: soft, normoactive bowel sounds, : No Renal angle tenderness; EXTREMITIES: Bipedal edema edema, no clubbing, MUSCULOSKELETAL: no muscle waisting NEURO: Awake; no lateralizing signs. SKIN: No Rash PSYCH; Flat affect Vitals/I&O's: Vital Signs Temp Pulse Resp BP Pulse Ox 96.7 F L 105 H 16 100/67 96 08/23/19 00:00 08/23/19 07:00 08/23/19 07:00 08/23/19 07:00 08/23/19 07:00 Oxygen Flow Rate (L/min) [4] 1 Oxygen Flow Rate (L/min) [3] 1 Oxygen Flow Rate (L/min) [2] 1 Oxygen Flow Rate (L/min) [1 ( 1 Initial Baseline)] Oxygen Flow Rate (L/min) 1 Oxygen Delivery Method [4] Nasal Cannula Oxygen Delivery Method [3] Nasal Cannula Oxygen Delivery Method [2] Nasal Cannula Oxygen Delivery Method [1 ( Nasal Cannula Initial Baseline)] Oxygen Delivery Method Nasal Cannula Weight: 104.6 kg Body Mass Index (BMI) 42.1 Finger Stick Blood Glucose 62 Intake and Output for Last 24 Hours 08/21/19 08/22/19 08/23/19 23:59 23:59 23:59 Intake Total 3305.25 / 3305.25 1516.03 / 1516.03 250 / 250 Output Total 550 / 550 1500 / 1500 50 / 50 Balance 2755.25 / 2755.25 16.03 / 16.03 200 / 200 Microbiology Past 72 Hours 08/20/19 14:10 Blood Culture (Wb) - Anticubital Right Blood Culture - Preliminary Staphylococcus aureus 08/20/19 14:25 Blood Culture (Wb) - Right Wrist Blood Culture - Preliminary No growth in 48 hours. 08/20/19 14:25 Urine, Catheterized Urine Culture - Final Presumptive E. coli 08/21/19 04:00 Urine, Random Legionella Antigen - Final 08/21/19 04:00 Urine, Random Streptococcus pneumoniae Antigen (M - Final 08/20/19 17:10 Mucosa - Nose Respiratory Panel (PCR) - Final 08/20/19 14:00 Mucosa - Nose Influenza Types A,B Direct FA (BERNICE) - Final Laboratory Results 08/22/19 03:10: Lactate Dehydrogenase 209 08/22/19 08:19: POC Glucose 221 H 08/22/19 12:18: POC Glucose 266 H 08/22/19 15:23: Fluid Glucose 271 H, Fluid Total Protein 2.1, Fluid LDH 70 08/22/19 15:23: Fluid Source THORACENTESIS, Fluid Color YELLOW, Fluid Appearance SL CLDY, Fluid WBC 0.183, Fluid RBC 902, Fluid Tot Cell Count 0.217 H, Fld Polynuclear WBCs # 0.029, Fld Polynuclear WBCs % 15.8, Fluid Mononuclear WBCs 0.154, Fld Mononuclear WBCs % 84.2, Fluid Neutrophils 14, Fluid Lymphocytes 18, Fluid Monocytes 11, Fluid Other Cells 57, Fl Pathologist Comment May follow, Fluid Comment 2 Not Reportable 08/22/19 15:50: POC Glucose 221 H 08/22/19 21:58: POC Glucose 231 H 08/23/19 05:25: WBC 9.8, RBC 2.61 L, Hgb 7.9 L, Hct 26.2 L, MCV 100.4 H, MCH 30.3, MCHC 30.2 L D, RDW Std Deviation 63.8 H, RDW Coeff of Alicia 17.3 H, Plt Count 231, MPV 10.7 08/23/19 05:25: Sodium 137, Potassium 3.8, Chloride 95 L, Carbon Dioxide 36.0 H, Anion Gap 6, BUN 40 H, Creatinine 1.26 H, Estim Creat Clear Calc 27.32, Est GFR (MDRD) Af Amer 53 L, Est GFR (MDRD) Non-Af 43 L, BUN/Creatinine Ratio 31.7 H, Glucose 229 H, Calcium 8.3 L Current Medications Acetaminophen (Tylenol) 650 mg PO Q6H PRN PRN PRN Reason: Pain Score 1-10/Temp > 100.7 F Al Hydroxide/Mg Hydroxide (Mylanta Ii) 30 ml PO Q6H PRN PRN PRN Reason: Gastric Burning Albuterol Sulfate (Ventolin Aerosols) 2.5 mg INHALATION Q2H PRN PRN PRN Reason: SOB/Wheezing Atorvastatin Calcium (Lipitor) 20 mg PO QHS [facility] Last Admin: 08/22/19 22:01 Dose: 20 mg Documented by: Dextrose (D50w Syringe) 0 gm IV X1 PRN; Protocol PRN Reason: Hypoglycemia Glucagon () 1 mg IM .X1 PRN PRN Reason: Hypoglycemia Guaifenesin (Robitussin) 10 ml PO Q4H PRN PRN PRN Reason: COUGH Hydralazine HCl (Apresoline Iv) 10 mg IV Q4H PRN PRN PRN Reason: SBP > 160 Piperacillin Sod/Tazobactam (Sod 3.375 gm/ Sodium Chloride) 50 mls @ 12.5 mls/hr IV Q8 [facility] Stop: 08/27/19 22:01 Last Admin: 08/23/19 05:22 Dose: 12.5 mls/hr Documented by: Sodium Chloride () 250 mls @ 15 mls/hr IV .[id number] PRN PRN Reason: Saline Flush Last Admin: 08/23/19 05:21 Dose: 15 mls/hr Documented by: Sodium Chloride () 250 mls @ 15 mls/hr IV .[id number] PRN PRN Reason: Additional IVPB Infusion Amiodarone HCl 360 mg/ (Dextrose) 200 mls @ 16.667 mls/hr CONT INF .Q12H [facility] Last Admin: 08/23/19 05:22 Dose: 0.5 mg/min, 16.7 mls/hr Documented by: Insulin Human Lispro (Humalog Kwikpen (Bkc)) 0 unit SC ACHS [facility]; Protocol Last Admin: 08/22/19 21:59 Dose: 2 u Documented by: Ipratropium [place] (Atrovent) 0.5 mg INHALATION Q4H.RT [facility] Last Admin: 03/28/20 06:39 Dose: 0.5 mg Documented by: Metoprolol Tartrate (Lopressor (Beta Lucina)) 25 mg PO BID [facility] Last Admin: 08/22/19 22:00 Dose: 25 mg Documented by: Mirtazapine (Remeron) 7.5 mg PO QHS [facility] Last Admin: 08/22/19 22:01 Dose: 7.5 mg Documented by: Multi-Ingredient Cream (Eucerin) 1 applic TOPICAL 2200 [facility]; Protocol Last Admin: 08/22/19 22:00 Dose: 1 applicatio Documented by: Nitroglycerin (Nitrostat) 0.4 mg SUBLINGUAL Q5M PRN PRN Reason: CARDIAC/CHEST PAIN Nutritional Formula (Lactose Free) (Glucerna Shake) 120 ml PO 4X/DAY [facility] Last Admin: 08/22/19 22:00 Dose: Not Given Documented by: Ondansetron HCl (Zofran) 4 mg IV Q8H PRN PRN PRN Reason: NAUSEA/VOMITING Pantoprazole Sodium (Protonix) 40 mg PO DAILY [facility] Last Admin: 08/22/19 09:49 Dose: 40 mg Documented by: Polysaccharide [facility] ([facility]rex 150[facility] Admin: 08/22/19 08:21 Dose: 150 mg Documented by: Prochlorperazine Edisylate (Compazine Iv) 5 mg IV Q4H PRN PRN PRN Reason: Breakthrough Nausea/Vomiting Sodium Chloride () 10 - 40 ml IV UD PRN PRN Reason: SALINE FLUSH Last Admin: 08/22/19 16:25 Dose: 10 ml Documented by: Throat Lozenges (Cepacol Sore Throat Lozenge) 1 lozenge MUCOUS MEM Q2H PRN PRN PRN Reason: SORE THROAT Trazodone HCl (Desyrel) 50 mg PO QHS [facility] Last Admin: 08/22/19 22:01 Dose: 50 mg Documented by: STROKE Vital Signs/Narrative: Vital Signs Pulse Resp BP Pulse Ox 08/23/19 07:00 105 H 16 100/67 96 08/23/19 06:40 95 08/23/19 06:39 118 H 19 H 08/23/19 06:00 132 H 18 107/63 96 08/23/19 05:00 111 H 23 H 98/59 L 94 08/23/19 04:00 111 H 20 H 96/59 L 95 Medical Necessity - Tobacco Use Smoking Status: Never smoker Tobacco Use: Non-smoker Assessment/Plan All Active Problems (Last Reviewed 07/15/19 @ 13:20 by Alessandra Valdivia) Hypoglycemia (Acute) CHF exacerbation (Acute) Pneumonia (Acute) Encephalopathy acute (Acute) Severe sepsis (Acute) Atrial fibrillation with RVR (Acute) HCAP (healthcare-associated pneumonia) (Acute) Recurrent right pleural effusion (Acute) Pulmonary hypertension (Acute) Cardiogenic shock (Acute) Bradycardia (Acute) Renal failure (ARF), acute on chronic (Acute) Acute hyperkalemia (Acute) Debility (Acute) Unresponsiveness (Resolved) History of respiratory failure with hypo (Resolved) Anemia (Ruled-out) Patient is a 78-year-old lady with recent hospitalization for influenza A infection with superimposed COPD exacerbation as well as congestive heart failure presented back to the emergency department shortness of breath. Progressive left lower lobe infiltrate and assessment of severe sepsis was made admitted to a monitored bed for subsequent management 1. Severe sepsis ?Secondary to pneumonia with suspected gram-negative organisms as well as acute cystitis. Patient was managed with broad-spectrum antibiotics per protocol after cultures have been obtained. There was suspicion for acute viral syndrome COVID 19 patient CXR as well as her presentation was felt not to be consistent. Isolation discontinued -08/22/2019: Patient seen cultures have remained negative to date. 08/23/2019?patient urine cultures came back positive for E. coli sensitivities reviewed 2. Paroxysmal A. fib with RVR ?Cardizem was initiated on admission with plans to titrate to keep heart rate less than 100. Cardizem drip was discontinued started on amiodarone following episodes of low blood pressure systemic anticoagulation with apixaban -08/22/2019: Patient seen still remains in A. fib with rapid ventricular response and on amiodarone drip. Consult was placed to Dr. 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 ?08/23/2019 patient is still on amiodarone drip plan is to wean off to p.o. amiodarone 3. Acute on chronic congestive heart failure ?Patient is on diuretics as well as supplemental oxygen 4. Bilateral pleural effusion - with moderate to large right pleural effusion as well as small left pleural effusion this was felt to be secondary to patient acute congestive heart failure currently being managed with diuresis -08/22/2019; use of diuretic limited by patient relatively low blood pressure. Patient apixaban was therefore held and an order placed for ultrasound-guided thoracocentesis ?08/23/2019 patient underwent ultrasound-guided thoracocentesis on 08/22/2019 with almost 1 L of fluid taken off. Patient fluid analysis consistent with transudate per Light's Criteria 5. 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 Placed on long acting insulin, Accu-Cheks a.c. and at bedtime and covered with sliding scale insulin 5. Anemia ?Secondary to anemia of chronic disorder did request for iron studies. Monitoring H&H with plans to transfuse if patient becomes symptomatic or hemoglobin falls below 7 7. GERD ?Patient is on PPI did continue 8. Dyslipidemia ~patient is on statin therapy, continued at home dose 9. COPD ?Currently not in exacerbation aerosol treatment as needed 10. Chronic kidney disease stage IV ?Secondary to diabetic nephropathy kidney function at baseline 11. Essential hypertension ?Patient blood pressure was low antihypertensive is currently being held with subsequent monitoring 12. Depression with anxiety ?Is on Remeron at night 13. DVT prophylaxis: - apixaban. 08/22/2019; patient's daughter updated on patient's progress and management plan moving forward. [facility] E[facility]M: [id number]
--- NOTE | 2019-08-23 07:48 | PN_ITS ---
Subjective: The patient was seen and examined at the bedside this morning. Events from the last 24 hours have been reviewed. The patient is currently afebrile, hemodynamically stable and maintaining appropriate oxygen saturations on 1 L/min via nasal cannula. The patient remains in atrial fibrillation with a rapid ventricular rate. The patient did undergo successful ultrasound-guided thoracentesis yesterday with 1 L of fluid removed. Objective: The patient's most recent lab work, culture data and imaging studies have all been personally reviewed. Urine culture was positive for presumptive E. coli. Surface echocardiogram from June 2019 revealed stage II diastolic dysfunction with an ejection fraction of 65% and a right ventricular systolic pressure estimated to be 60 mmHg. The RV was severely dilated with moderate segmental dysfunction. General: Alert, Cooperative, No apparent distress HEENT: Atraumatic, Normocephalic Oral: No Gingival or Mucosal Lesions/ Ulcerations Neck: Supple, No Nodes, Trachea Midline Lungs: No rhonchi, No wheeze, No rales, Diminished Cardiovascular: Normal S1, Normal S2, Irregular Rate, Murmur, Tachycardic Abdomen: Bowel Sounds Present, Soft, Non Tender Extremities: No clubbing, No cyanosis Skin: No breakdown Musculoskeletal: No Tenderness to Palpation of Joints or Extremities Lymphatic: No Cervical, Supraclavicular, or Inguinal Adenopathy Neurological: Cranial nerves II-XII grossly intact, Neuro grossly intact Psych/Mental Status: Normal Affect, Appropriate Vital Signs Temp Pulse Resp BP Pulse Ox 96.7 F L 105 H 16 100/67 96 08/23/19 00:00 08/23/19 07:00 08/23/19 07:00 08/23/19 07:00 08/23/19 07:00 Oxygen Flow Rate (L/min) [4] 1 Oxygen Flow Rate (L/min) [3] 1 Oxygen Flow Rate (L/min) [2] 1 Oxygen Flow Rate (L/min) [1 ( 1 Initial Baseline)] Oxygen Flow Rate (L/min) 1 Oxygen Delivery Method [4] Nasal Cannula Oxygen Delivery Method [3] Nasal Cannula Oxygen Delivery Method [2] Nasal Cannula Oxygen Delivery Method [1 ( Nasal Cannula Initial Baseline)] Oxygen Delivery Method Nasal Cannula Weight: 230 lb 9.656 oz Body Mass Index (BMI) 42.1 Finger Stick Blood Glucose 62 Intake and Output for Last 24 Hours 08/21/19 08/22/1908/22/20 23:59 23:59 23:59 Intake Total 3305.25 / 3305.25 1516.03 / 1516.03 250 / 250 Output Total 550 / 550 1500 / 1500 50 / 50 Balance 2755.25 / 2755.25 16.03 / 16.03 200 / 200 Labs (Last 48 Hours) 08/21/19 08/21/19 08/21/19 03:10 07:42 12:13 WBC RBC Hgb Hct MCV MCH MCHC RDW Std Deviation RDW Coeff of Alciia Plt Count MPV Differential Comment Retic Count Immature Retic Fraction Retic Hgb Equivalent Sodium Potassium Chloride Carbon Dioxide Anion Gap BUN Creatinine Estim Creat Clear Calc Est GFR (MDRD) Af Amer Est GFR (MDRD) Non-Af BUN/Creatinine Ratio Glucose Calcium Phosphorus 4.3 Magnesium Iron TIBC Iron Saturation Ferritin Lactate Dehydrogenase Vitamin B12 Fluid Source Fluid Color Fluid Appearance Fluid WBC Fluid RBC Fluid Tot Cell Count Fld Polynuclear WBCs # Fld Polynuclear WBCs % Fluid Mononuclear WBCs Fld Mononuclear WBCs % Fluid Neutrophils Fluid Lymphocytes Fluid Monocytes Fluid Other Cells Fl Pathologist Comment Fluid Glucose Fluid Total Protein Fluid LDH Fluid Comment 2 POC Glucose 81 151 H 08/21/19 08/21/19 08/21/19 13:48 13:48 13:48 WBC RBC Hgb Hct MCV MCH MCHC RDW Std Deviation RDW Coeff of Alicia Plt Count MPV Differential Comment Retic Count 1.43 Immature Retic Fraction 27.40 H Retic Hgb Equivalent 33.6 Sodium Potassium Chloride Carbon Dioxide Anion Gap BUN Creatinine Estim Creat Clear Calc Est GFR (MDRD) Af Amer Est GFR (MDRD) Non-Af BUN/Creatinine Ratio Glucose Calcium Phosphorus Magnesium Iron 34 L TIBC 246 L Iron Saturation 13.8 L Ferritin 298 H Lactate Dehydrogenase Vitamin B12 564 Fluid Source Fluid Color Fluid Appearance Fluid WBC Fluid RBC Fluid Tot Cell Count Fld Polynuclear WBCs # Fld Polynuclear WBCs % Fluid Mononuclear WBCs Fld Mononuclear WBCs % Fluid Neutrophils Fluid Lymphocytes Fluid Monocytes Fluid Other Cells Fl Pathologist Comment Fluid Glucose Fluid Total Protein Fluid LDH Fluid Comment 2 POC Glucose 08/21/19 08/21/19 08/22/19 16:09 22:56 03:10 WBC 10.4 RBC 2.63 L Hgb 7.9 L Hct 27.5 L MCV 104.6 H MCH 30.0 MCHC 28.7 L RDW Std Deviation 65.1 H RDW Coeff of Alicia 17.2 H Plt Count 221 MPV 10.7 Differential Comment SCANNED Retic Count Immature Retic Fraction Retic Hgb Equivalent Sodium Potassium Chloride Carbon Dioxide Anion Gap BUN Creatinine Estim Creat Clear Calc Est GFR (MDRD) Af Amer Est GFR (MDRD) Non-Af BUN/Creatinine Ratio Glucose Calcium Phosphorus Magnesium Iron TIBC Iron Saturation Ferritin Lactate Dehydrogenase Vitamin B12 Fluid Source Fluid Color Fluid Appearance Fluid WBC Fluid RBC Fluid Tot Cell Count Fld Polynuclear WBCs # Fld Polynuclear WBCs % Fluid Mononuclear WBCs Fld Mononuclear WBCs % Fluid Neutrophils Fluid Lymphocytes Fluid Monocytes Fluid Other Cells Fl Pathologist Comment Fluid Glucose Fluid Total Protein Fluid LDH Fluid Comment 2 POC Glucose 195 H 264 H 08/22/19 08/22/19 08/22/19 03:10 03:10 08:19 WBC RBC Hgb Hct MCV MCH MCHC RDW Std Deviation RDW Coeff of Alicia Plt Count MPV Differential Comment Retic Count Immature Retic Fraction Retic Hgb Equivalent Sodium 138 Potassium 4.3 Chloride 95 L Carbon Dioxide 37.0 H Anion Gap 6 BUN 42 H Creatinine 1.44 H Estim Creat Clear Calc 23.90 Est GFR (MDRD) Af Amer 45 L Est GFR (MDRD) Non-Af 37 L BUN/Creatinine Ratio 29.2 H Glucose 275 H Calcium 8.0 L Phosphorus Magnesium 1.7 Iron TIBC Iron Saturation Ferritin Lactate Dehydrogenase 209 Vitamin B12 Fluid Source Fluid Color Fluid Appearance Fluid WBC Fluid RBC Fluid Tot Cell Count Fld Polynuclear WBCs # Fld Polynuclear WBCs % Fluid Mononuclear WBCs Fld Mononuclear WBCs % Fluid Neutrophils Fluid Lymphocytes Fluid Monocytes Fluid Other Cells Fl Pathologist Comment Fluid Glucose Fluid Total Protein Fluid LDH Fluid Comment 2 POC Glucose 221 H 08/22/19 08/22/19 08/22/19 12:18 15:23 15:23 WBC RBC Hgb Hct MCV MCH MCHC RDW Std Deviation RDW Coeff of Alicia Plt Count MPV Differential Comment Retic Count Immature Retic Fraction Retic Hgb Equivalent Sodium Potassium Chloride Carbon Dioxide Anion Gap BUN Creatinine Estim Creat Clear Calc Est GFR (MDRD) Af Amer Est GFR (MDRD) Non-Af BUN/Creatinine Ratio Glucose Calcium Phosphorus Magnesium Iron TIBC Iron Saturation Ferritin Lactate Dehydrogenase Vitamin B12 Fluid Source THORACENTESIS Fluid Color YELLOW Fluid Appearance SL CLDY Fluid WBC 0.183 Fluid RBC 902 Fluid Tot Cell Count 0.217 H Fld Polynuclear WBCs # 0.029 Fld Polynuclear WBCs % 15.8 Fluid Mononuclear WBCs 0.154 Fld Mononuclear WBCs % 84.2 Fluid Neutrophils 14 Fluid Lymphocytes 18 Fluid Monocytes 11 Fluid Other Cells 57 Fl Pathologist Comment May follow Fluid Glucose 271 H Fluid Total Protein 2.1 Fluid LDH 70 Fluid Comment 2 Not Reportable POC Glucose 266 H 08/22/19 08/22/19 08/23/19 15:50 21:58 05:25 WBC 9.8 RBC 2.61 L Hgb 7.9 L Hct 26.2 L MCV 100.4 H MCH 30.3 MCHC 30.2 L D RDW Std Deviation 63.8 H RDW Coeff of Alicia 17.3 H Plt Count 231 MPV 10.7 Differential Comment Retic Count Immature Retic Fraction Retic Hgb Equivalent Sodium Potassium Chloride Carbon Dioxide Anion Gap BUN Creatinine Estim Creat Clear Calc Est GFR (MDRD) Af Amer Est GFR (MDRD) Non-Af BUN/Creatinine Ratio Glucose Calcium Phosphorus Magnesium Iron TIBC Iron Saturation Ferritin Lactate Dehydrogenase Vitamin B12 Fluid Source Fluid Color Fluid Appearance Fluid WBC Fluid RBC Fluid Tot Cell Count Fld Polynuclear WBCs # Fld Polynuclear WBCs % Fluid Mononuclear WBCs Fld Mononuclear WBCs % Fluid Neutrophils Fluid Lymphocytes Fluid Monocytes Fluid Other Cells Fl Pathologist Comment Fluid Glucose Fluid Total Protein Fluid LDH Fluid Comment 2 POC Glucose 221 H 231 H 08/23/19 05:25 WBC RBC Hgb Hct MCV MCH MCHC RDW Std Deviation RDW Coeff of Alicia Plt Count MPV Differential Comment Retic Count Immature Retic Fraction Retic Hgb Equivalent Sodium 137 Potassium 3.8 Chloride 95 L Carbon Dioxide 36.0 H Anion Gap 6 BUN 40 H Creatinine 1.26 H Estim Creat Clear Calc 27.32 Est GFR (MDRD) Af Amer 53 L Est GFR (MDRD) Non-Af 43 L BUN/Creatinine Ratio 31.7 H Glucose 229 H Calcium 8.3 L Phosphorus Magnesium Iron TIBC Iron Saturation Ferritin Lactate Dehydrogenase Vitamin B12 Fluid Source Fluid Color Fluid Appearance Fluid WBC Fluid RBC Fluid Tot Cell Count Fld Polynuclear WBCs # Fld Polynuclear WBCs % Fluid Mononuclear WBCs Fld Mononuclear WBCs % Fluid Neutrophils Fluid Lymphocytes Fluid Monocytes Fluid Other Cells Fl Pathologist Comment Fluid Glucose Fluid Total Protein Fluid LDH Fluid Comment 2 POC Glucose Microbiology 08/20/19 14:10 Blood Culture (Wb) - Anticubital Right Blood Culture - Preliminary Staphylococcus aureus 08/20/19 14:25 Blood Culture (Wb) - Right Wrist Blood Culture - Preliminary No growth in 48 hours. 08/20/19 14:25 Urine, Catheterized Urine Culture - Final Presumptive E. coli 08/21/19 04:00 Urine, Random Legionella Antigen - Final 08/21/19 04:00 Urine, Random Streptococcus pneumoniae Antigen (M - Final Clinical Impression(s) from Imaging Studies Chest X-Ray 08/20/19 14:45 IMPRESSION: Progressive right lower lobe infiltrate. Electronically Signed: Yonatan Howe, at 15:17 EDT , Service support , Chest CT 08/20/19 18:48 IMPRESSION: Moderate to large right pleural effusion. Marked atelectasis of the right lower lobe. Small left pleural effusion. Mild atelectasis of the left lower lobe. Pneumonia not excluded in the areas of atelectasis. Electronically Signed: Jasen Bright MD at 22:17 EDT , Service support , Thoracentesis Ultrasound 08/22/19 13:30 IMPRESSION: Ultrasound-guided right thoracentesis. Electronically Signed: Yonatan Howe, at 15:40 EDT , Service support , Chest X-Ray 08/22/19 15:05 IMPRESSION: Status post right thoracentesis. Minimal residual blunting of the right costophrenic angle. No evidence of pneumothorax. Electronically Signed: Yonatan Howe at 15:25 EDT , Service support , Medical Necessity - Tobacco Use Smoking Status: Never smoker Tobacco Use: Non-smoker Assessment/Plan All Active Problems (Last Reviewed 07/15/19 @ 13:20 by Alessandra Valdivia) Hypoglycemia (Acute) CHF exacerbation (Acute) Pneumonia (Acute) Encephalopathy acute (Acute) Severe sepsis (Acute) Atrial fibrillation with RVR (Acute) HCAP (healthcare-associated pneumonia) (Acute) Recurrent right pleural effusion (Acute) Pulmonary hypertension (Acute) Cardiogenic shock (Acute) Bradycardia (Acute) Renal failure (ARF), acute on chronic (Acute) Acute hyperkalemia (Acute) Debility (Acute) Unresponsiveness (Resolved) History of respiratory failure with hypo (Resolved) Anemia (Ruled-out) RECOMMENDATIONS: 1. Continue antimicrobials to complete a 7-day treatment course. 2. Continue rate/rhythm control strategy per cardiology recommendations. 3. Wean supplemental oxygen to maintain saturations at or above 90%. 4. The patient is medically stable for transfer out of the intensive care unit. 5. Given the patient's lack of further ICU needs, will sign off. Please call with any additional questions. IMPRESSIONS: 1. Severe sepsis CT chest is concerning for decompensated heart failure given moderate to large right-sided pleural effusion and small left pleural effusion. BNP was also elevated greater than 1000. The patient was just hospitalized for influenza and was noted to have a cough at that time, which has persisted. Therefore, the patient's presenting cough is not a new finding. The patient has remained afebrile without evidence of an elevated white blood cell count. The patient appears to have an E. coli urinary tract source of infection. I have a low clinical index of suspicion for underlying COVID infection. Continue antimicrobials to address urinary tract source of infection. 2. Paroxysmal atrial fibrillation/heart failure with preserved ejection fra ction/pulmonary hypertension/RV dysfunction The patient remains in atrial fibrillation with a rapid ventricular rate. Cardiology is currently following to assist with medical management. 3. COPD/diabetes mellitus/hypertension/hyperlipidemia Complicates care, management, recovery and prognosis. Continue home medications as indicated. This note was generated with [employer] software. It may contain incorrect words, spelling, and punctuation that were not noted in checking the note before signing. Inpatient E&M: 66778 Subs Hosp L2
[2019-08-23] MEDS: Insulin Lispro 100 UNIT/ML INSULN.PEN SC ×4 (08:12→21:51)
[2019-08-23] MEDS: Metoprolol Tartrate 25 MG Tablet PO ×2 (08:13→15:03)
[2019-08-23] MEDS: Pantoprazole Sodium 40 MG Tablet PO (08:14)
[2019-08-23] MEDS: Iron Polysaccharide Complex 150 MG CAPSULE PO (08:15)
--- NOTE | 2019-08-23 08:43 | PCM.PN.CARD ---
Subjectve: Patient feels much better after thoracentesis yesterday, and many thanks to Dr. Watson for his assistance. Patient still remains in atrial fibrillation with rapid ventricular response although her heart rate is slower. Transitioning from IV amiodarone to p.o. amiodarone this morning. Objective: Vital Signs Temp Pulse Resp BP Pulse Ox 96.7 F L 127 H 18 94/48 L 97 08/23/19 00:00 08/23/19 08:13 08/23/19 08:00 08/23/19 08:00 08/23/19 08:00 Oxygen Flow Rate (L/min) [4] 1 Oxygen Flow Rate (L/min) [3] 1 Oxygen Flow Rate (L/min) [2] 1 Oxygen Flow Rate (L/min) [1 ( 1 Initial Baseline)] Oxygen Flow Rate (L/min) 1 Oxygen Delivery Method [4] Nasal Cannula Oxygen Delivery Method [3] Nasal Cannula Oxygen Delivery Method [2] Nasal Cannula Oxygen Delivery Method [1 ( Nasal Cannula Initial Baseline)] Oxygen Delivery Method Nasal Cannula Weight: 230 lb 9.656 oz Body Mass Index (BMI) 42.1 Finger Stick Blood Glucose 62 Intake and Output for Last 24 Hours 08/21/19 08/22/19 08/23/19 23:59 23:59 23:59 Intake Total 3305.25 / 3305.25 1516.03 / 1516.03 250 / 250 Output Total 550 / 550 1500 / 1500 50 / 50 Balance 2755.25 / 2755.25 16.03 / 16.03 200 / 200 General: Awake, Alert, Oriented x 3 HEENT: PERRL, EOMI, Sclera Non Icteric Neck: Supple, Good ROM, No Lymph Node Enlargement Lungs: Clear to auscultation Cardiovascular: Irregular Rhythm, Normal S2, No Rubs, No Gallops Murmur Murmur: Grade 2/6, Holosystolic Vascular: No Carotid Bruits, Normal Femoral Pulses, Normal Radial Pulses, Normal Dorsalis Pedal Pulse, Normal Posterior Tibial Pulses Abdomen: Bowel Sounds Present, Soft, Non Tender, No HSM, No Organomegaly Extremities: No Cyanosis, No Clubbing, No edema Neurological: No Focal Motor or Sensory Deficit 08/23/19 05:25: WBC 9.8, RBC 2.61 L, Hgb 7.9 L, Hct 26.2 L, MCV 100.4 H, MCH 30.3, MCHC 30.2 L D, Plt Count 231, MPV 10.7 08/23/19 05:25: Sodium 137, Potassium 3.8, Chloride 95 L, Carbon Dioxide 36.0 H, Anion Gap 6, BUN 40 H, Creatinine 1.26 H, Est GFR (MDRD) Af Amer 53 L, Est GFR (MDRD) Non-Af 43 L, BUN/Creatinine Ratio 31.7 H, Glucose 229 H, Calcium 8.3 L Rhythm: EKG: ECHO: Stress Test: Cardiac Cath: PCI: CT Surgery: Holter monitor: EPS: PPM: CXR: Chest CT Scan: Medical Necessity - Tobacco Use Smoking Status: Never smoker Tobacco Use: Non-smoker Assessment/Plan 1. Right pleural effusion: Patient has recurrent right pleural effusion, and has had previous thoracentesis in the past per the patient. Her chest CT demonstrates a large right pleural effusion which is no doubt contributing to the patient's dyspnea, shortness of breath and rapid ventricular response. Will be difficult to get control of her heart rate until her pleural effusion has been evacuated. Her echocardiogram from 07/24/2019 is as follows: Mild concentric left ventricular hypertrophy. The estimated ejection fraction is 65 %. Stage 2 diastolic dysfunction. Severely dilated right ventricle. Moderate segmental dysfunction of right ventricle. Moderately severe (3+) tricuspid valve insufficiency. Right ventricular systolic pressure estimated to be 60 mmHg. Small left pleural effusion. There is no comparison study available. Patient underwent successful right-sided thoracentesis yesterday extracting about 1 L of fluid with an excellent result on chest x-ray. The patient feels much better, and is doing well. Would recommend transitioning her from IV Lasix to Lasix 40 mg p.o. twice daily to prevent recurrent pleural effusions. If the patient has recurrent right-sided pleural effusion consideration may want remain for pleurodesis therapy or Pleur-evac. 2. Atrial fibrillation: The patient has chronic persistent atrial fibrillation superimposed on severe pulmonary hypertension and will most likely require lifelong anticoagulation therapy going forward. Her Eliquis was held yesterday for her thoracentesis, and recommend restarting Eliquis tomorrow morning. In the meantime we will exchange her IV amiodarone to p.o. amiodarone 40 mg p.o. twice daily for 3 days followed by 2 and a milligrams a day. The patient does not chemically cardiovert with amiodarone, we can then proceed with DC cardioversion in 3 weeks time provided she is able to maintain on Eliquis for that time. I believe the patient would do much better in normal sinus rhythm with respect to atrial kick and cardiac output deficiency. 3. Thank you very much for the opportunity to participate in the cardiac care of your patient. Discussed with Dr. Looney. Patient may be transferred to PCU if heart rate is stable and a bed is needed for ICU patients. Inpatient E&M: 14739 Subs Hosp L2
[2019-08-23] MEDS: Amiodarone 200 MG Tablet 400 MG PO ×2 (08:51→15:03)
[2019-08-23] MEDS: Furosemide 40 MG Tablet PO ×2 (08:55→17:20)
[2019-08-23 12:26] LABS: Bedside Glucose 194 mg/dL (70-110)
[2019-08-23] MEDS: Glucerna Shake 120 ML LIQUID PO ×2 (13:15→21:51)
[2019-08-23] MEDS: 0.9% Saline Lock 10 ML Syringe IV ×2 (13:21→21:50)
[2019-08-23 17:42] LABS: Bedside Glucose 245 mg/dL (70-110)
[2019-08-23] MEDS: Atorvastatin Calcium 20 MG Tablet PO (21:50)
[2019-08-23] MEDS: traZODone 50 MG Tablet PO (21:50)
[2019-08-23] MEDS: Mirtazapine 15 MG Tablet 7.5 MG PO (21:51)
[2019-08-23 22:41] LABS: Bedside Glucose 254 mg/dL (70-110)
[2019-08-24] VITALS (16 sets, daily range): BP systolic 104–138; BP diastolic 56–70; PULSE 96–128; RESP 16–20; TEMP 36.6; O2SAT 93–99
[2019-08-24] MEDS: Ipratropium 0.5 MG/2.5 ML SOLUTION INHALATION ×5 (03:32→19:16)
[2019-08-24] MEDS: Amiodarone 200 MG Tablet 400 MG PO ×2 (06:09→21:02)
[2019-08-24 06:22] LABS: Hematocrit 26.7 % (37-47); Hemoglobin 7.8 g/dL (12.0-15.0); Mean Corp Hgb Conc 29.2 g/dL (32-36); Mean Corpuscular Hgb 29.3 pg (27.0-32.0); Mean Corpuscular Volume 100.4 fL (81-99); Mean Platelet Vol. 10.9 fl (6.2-12.0); Platelet Count 244 K/mm3 (150-450); RBC Distribution Width CV 17.7 % (11.6-14.6); RBC Distribution Width SD 64.3 fl (35.1-43.9); Red Blood Count 2.66 M/mm3 (4.2-5.4); White Blood Count 9.7 K/mm3 (4.4-11.0)
[2019-08-24 06:56] LABS: Anion Gap 6 (5-15); BUN 43 mg/dL (7-18); BUN/Creat Ratio 30.7 RATIO (10-20); Calcium,Total 8.5 mg/dL (8.5-10.1); Chloride 96 mmol/L (98-107); EST Glomerular Filtration Rate 39 mL/min (>60); Est Glom Filt Rate - Afr Amer 47 mL/min (>60); Estimated Creatinine Clearance 24.59 ml/min; Glucose 205 mg/dL (74-106); Sodium Level 137 mmol/L (136-145)
[2019-08-24] MEDS: Insulin Lispro 100 UNIT/ML INSULN.PEN SC ×4 (07:00→21:03)
[2019-08-24 07:06] LABS: Bedside Glucose 194 mg/dL (70-110)
[2019-08-24] MEDS: Glucerna Shake 120 ML LIQUID PO ×4 (09:06→21:02)
[2019-08-24] MEDS: Iron Polysaccharide Complex 150 MG CAPSULE PO (09:06)
[2019-08-24] MEDS: Nystatin Powder 15gm Bottle 1 APPLIC TOPICAL ×2 (09:07→21:03)
[2019-08-24] MEDS: Pantoprazole Sodium 40 MG Tablet PO (09:07)
[2019-08-24] MEDS: Metoprolol Tartrate 50 MG Tablet PO ×2 (09:07→21:03)
[2019-08-24] MEDS: Furosemide 40 MG Tablet PO ×2 (09:07→16:59)
--- NOTE | 2019-08-24 09:07 | PCM.PN.CARD ---
Subjectve: Patient continues to slowly improve, but still has atrial fibrillation with rapid ventricular response. Status post thoracentesis on the right side and she appears to have no egophony on the right side as of this writing. Telemetry shows atrial fibrillation with controlled ventricular response. Objective: Vital Signs Temp Pulse Resp BP Pulse Ox 97.8 F 128 H 16 138/68 H 94 08/24/19 08:26 08/24/19 08:26 08/24/19 08:26 08/24/19 08:26 08/24/19 08:26 Oxygen Flow Rate (L/min) [4] 1 Oxygen Flow Rate (L/min) [3] 1 Oxygen Flow Rate (L/min) [2] 1 Oxygen Flow Rate (L/min) [1 ( 1 Initial Baseline)] Oxygen Flow Rate (L/min) 1 Oxygen Delivery Method [4] Nasal Cannula Oxygen Delivery Method [3] Nasal Cannula Oxygen Delivery Method [2] Nasal Cannula Oxygen Delivery Method [1 ( Nasal Cannula Initial Baseline)] Oxygen Delivery Method Room Air Weight: 228 lb 2.855 oz Body Mass Index (BMI) 42.1 Finger Stick Blood Glucose 62 Intake and Output for Last 24 Hours 08/22/19 08/23/19 08/24/19 23:59 23:59 23:59 Intake Total 1516.03 / 1516.03 1124.17 / 1324.17 360.71 / 360.71 Output Total 1500 / 1500 150 / 150 Balance 16.03 / 16.03 974.17 / 1174.17 360.71 / 360.71 General: Awake, Alert, Oriented x 3 HEENT: PERRL, EOMI, Sclera Non Icteric Neck: Supple, Good ROM, No Lymph Node Enlargement Lungs: Clear to auscultation Cardiovascular: Irregular Rhythm, Normal S2, No Rubs, No Gallops Murmur Murmur: Grade 2/6, Holosystolic Vascular: No Carotid Bruits, Normal Femoral Pulses, Normal Radial Pulses, Normal Dorsalis Pedal Pulse, Normal Posterior Tibial Pulses Abdomen: Bowel Sounds Present, Soft, Non Tender, No HSM, No Organomegaly Extremities: No Cyanosis, No Clubbing, No edema Neurological: No Focal Motor or Sensory Deficit 08/24/19 05:44: WBC 9.7, RBC 2.66 L, Hgb 7.8 L, Hct 26.7 L, MCV 100.4 H, MCH 29.3, MCHC 29.2 L, Plt Count 244, MPV 10.9 08/24/19 05:44: Sodium 137, Potassium 4.0, Chloride 96 L, Carbon Dioxide 35.0 H, Anion Gap 6, BUN 43 H, Creatinine 1.40 H, Est GFR (MDRD) Af Amer 47 L, Est GFR (MDRD) Non-Af 39 L, BUN/Creatinine Ratio 30.7 H, Glucose 205 H, Calcium 8.5 Rhythm: EKG: ECHO: Stress Test: Cardiac Cath: PCI: CT Surgery: Holter monitor: EPS: PPM: CXR: Chest CT Scan: Medical Necessity - Tobacco Use Smoking Status: Never smoker Tobacco Use: Non-smoker Assessment/Plan 1. Right pleural effusion: Patient has recurrent right pleural effusion, and has had previous thoracentesis in the past per the patient. Her chest CT demonstrates a large right pleural effusion which is no doubt contributing to the patient's dyspnea, shortness of breath and rapid ventricular response. Will be difficult to get control of her heart rate until her pleural effusion has been evacuated. Her echocardiogram from 07/24/2019 is as follows: Mild concentric left ventricular hypertrophy. The estimated ejection fraction is 65 %. Stage 2 diastolic dysfunction. Severely dilated right ventricle. Moderate segmental dysfunction of right ventricle. Moderately severe (3+) tricuspid valve insufficiency. Right ventricular systolic pressure estimated to be 60 mmHg. Small left pleural effusion. There is no comparison study available. Patient underwent successful right-sided thoracentesis on 08/22/2019 extracting about 1 L of fluid with an excellent result on chest x-ray. The patient feels much better, and is doing well. Would recommend transitioning her from IV Lasix to Lasix 40 mg p.o. twice daily to prevent recurrent pleural effusions. If the patient has recurrent right-sided pleural effusion consideration may want remain for pleurodesis therapy or Pleur-evac. 2. Atrial fibrillation: The patient has chronic persistent atrial fibrillation superimposed on severe pulmonary hypertension and will most likely require lifelong anticoagulation therapy going forward. Would recommend resuming her Eliquis today. Her thoracentesis wound site is clean/dry/intact. Patient is current on boarding of p.o. amiodarone after 2 days of IV amiodarone. Recommend increasing her Lopressor to 50 mg p.o. twice daily to capture better rate control. If this is not successful, the patient may require additional rate controlling medications such as Cardizem CD 120 mg daily. If the patient does not chemically cardiovert with amiodarone, we can then proceed with DC cardioversion in 3 weeks time provided she is able to maintain on Eliquis for that time. I believe the patient would do much better in normal sinus rhythm with respect to atrial kick and cardiac output deficiency. 3. Thank you very much for the opportunity to participate in the cardiac care of your patient. Would recommend beginning discharge planning. Inpatient E&M: 76008 Subs Hosp L2
--- NOTE | 2019-08-24 10:58 | PN_ITS ---
<Neema Freedman - Last Filed: 08/24/19 11:17> Patient Problems: Active and Suspected Problems (Last Reviewed 07/15/19 @ 13:20 by Alessandra Valdivia) Severe sepsis (Acute) Atrial fibrillation with RVR (Acute) HCAP (healthcare-associated pneumonia) (Acute) Recurrent right pleural effusion (Acute) Pulmonary hypertension (Acute) Subjective: Patient seen and examined. Heart rate remains tachycardic. Patient denies shortness of breath, palpitations, chest pain. - Physical Exam Vitals/I&O's: Vital Signs Temp Pulse Resp BP Pulse Ox 97.8 F 128 H 16 138/68 H 94 08/24/19 08:26 08/24/19 09:07 08/24/19 08:26 08/24/19 09:07 08/24/19 08:26 Oxygen Flow Rate (L/min) [4] 1 Oxygen Flow Rate (L/min) [3] 1 Oxygen Flow Rate (L/min) [2] 1 Oxygen Flow Rate (L/min) [1 ( 1 Initial Baseline)] Oxygen Flow Rate (L/min) 1 Oxygen Delivery Method [4] Nasal Cannula Oxygen Delivery Method [3] Nasal Cannula Oxygen Delivery Method [2] Nasal Cannula Oxygen Delivery Method [1 ( Nasal Cannula Initial Baseline)] Oxygen Delivery Method Room Air Weight: 228 lb 2.855 oz Body Mass Index (BMI) 42.1 Finger Stick Blood Glucose 62 Intake and Output for Last 24 Hours 08/22/19 08/23/19 08/24/19 23:59 23:59 23:59 Intake Total 1516.03 / 1516.03 1124.17 / 1324.17 410.71 / 410.71 Output Total 1500 / 1500 150 / 150 Balance 16.03 / 16.03 974.17 / 1174.17 410.71 / 410.71 General: Alert, Oriented x3, Cooperative HEENT: Atraumatic, PERRLA, EOMI, Normocephalic Neck: Supple, No JVD, Negative Carotid Bruits Lungs: Clear to auscultation, Diminished Cardiovascular: - - Atrial fibrillation, tachycardic Abdomen: Bowel Sounds Present, Soft, Non Tender, Non-Distended Extremities: No clubbing, No cyanosis, No edema, Capillary Refill Less than 3 Seconds Skin: No rashes, No breakdown Musculoskeletal: No Tenderness to Palpation of Joints or Extremities Neurological: Cranial nerves II-XII grossly intact Psych/Mental Status: Normal Affect, Appropriate Microbiology Past 72 Hours 08/20/19 14:10 Blood Culture (Wb) - Anticubital Right Blood Culture - Preliminary Staphylococcus aureus 08/20/19 14:25 Blood Culture (Wb) - Right Wrist Blood Culture - Preliminary No growth in 48 hours. 08/20/19 14:25 Urine, Catheterized Urine Culture - Final Presumptive E. coli Laboratory Results 08/23/19 12:18: POC Glucose 194 H 08/23/19 15:05: POC Glucose 245 H 08/23/19 21:48: POC Glucose 254 H 08/24/19 05:44: WBC 9.7, RBC 2.66 L, Hgb 7.8 L, Hct 26.7 L, MCV 100.4 H, MCH 29.3, MCHC 29.2 L, RDW Std Deviation 64.3 H, RDW Coeff of Alicia 17.7 H, Plt Count 244, MPV 10.9 08/24/19 05:44: Sodium 137, Potassium 4.0, Chloride 96 L, Carbon Dioxide 35.0 H, Anion Gap 6, BUN 43 H, Creatinine 1.40 H, Estim Creat Clear Calc 24.59, Est GFR (MDRD) Af Amer 47 L, Est GFR (MDRD) Non-Af 39 L, BUN/Creatinine Ratio 30.7 H, Glucose 205 H, Calcium 8.5 08/24/19 06:59: POC Glucose 194 H Current Medications Acetaminophen (Tylenol) 650 mg PO Q6H PRN PRN PRN Reason: Pain Score 1-10/Temp > 100.7 F Al Hydroxide/Mg Hydroxide (Mylanta Ii) 30 ml PO Q6H PRN PRN PRN Reason: Gastric Burning Albuterol Sulfate (Ventolin Aerosols) 2.5 mg INHALATION Q2H PRN PRN PRN Reason: SOB/Wheezing Amiodarone HCl (Cordarone) 400 mg PO BID [facility] Stop: 08/25/19 22:01 Last Admin: 08/24/19 06:09 Dose: 400 mg Documented by: Amiodarone HCl (Cordarone) 200 mg PO DAILY [facility] Apixaban (Eliquis) 2.5 mg PO BID [facility] Atorvastatin Calcium (Lipitor) 20 mg PO QHS [facility] Last Admin: 08/23/19 21:50 Dose: 20 mg Documented by: Dextrose (D50w Syringe) 0 gm IV X1 PRN; Protocol PRN Reason: Hypoglycemia Furosemide (Lasix) 40 mg PO BID@1000,1800 [facility] Last Admin: 08/24/19 09:07 Dose: 40 mg Documented by: Glucagon () 1 mg IM .X1 PRN PRN Reason: Hypoglycemia Guaifenesin (Robitussin) 10 ml PO Q4H PRN PRN PRN Reason: COUGH Hydralazine HCl (Apresoline Iv) 10 mg IV Q4H PRN PRN PRN Reason: SBP > 160 Piperacillin Sod/Tazobactam (Sod 3.375 gm/ Sodium Chloride) 50 mls @ 12.5 mls/hr IV Q8 [facility] Stop: 08/27/19 22:01 Last Infusion: 08/24/19 09:49 Dose: Infused Documented by: Sodium Chloride () 250 mls @ 15 mls/hr IV .[id number] PRN PRN Reason: Saline Flush Last Infusion: 08/24/19 05:49 Dose: 0 mls/hr Documented by: Sodium Chloride () 250 mls @ 15 mls/hr IV .[id number] PRN PRN Reason: Additional IVPB Infusion Insulin Human Lispro (Humalog Kwikpen (Bkc)) 0 unit SC ACHS [facility]; Protocol Last Admin: 08/24/19 07:00 Dose: 1 u Documented by: Ipratropium [place] (Atrovent) 0.5 mg INHALATION Q4H.RT [facility] Last Admin: 08/24/19 06:40 Dose: 0.5 mg Documented by: Metoprolol Tartrate (Lopressor (Beta Lucina)) 50 mg PO BID [facility] Last Admin: 08/24/19 09:07 Dose: 50 mg Documented by: Mirtazapine (Remeron) 7.5 mg PO QHS [facility] Last Admin: 08/23/19 21:51 Dose: 7.5 mg Documented by: Multi-Ingredient Cream (Eucerin) 1 applic TOPICAL 2200 [facility]; Protocol Last Admin: 08/23/19 21:50 Dose: 1 applicatio Documented by: Nitroglycerin (Nitrostat) 0.4 mg SUBLINGUAL Q5M PRN PRN Reason: CARDIAC/CHEST PAIN Nutritional Formula (Lactose Free) (Mati Domínguezke) 120 ml PO 4X/DAY [facility] Last Admin: 08/24/19 09:06 Dose: 120 ml Documented by: Nystatin (Mycostatin Powder) 1 applic TOPICAL BID [facility]; Protocol Last Admin: 08/24/19 09:07 Dose: 1 applic Documented by: Ondansetron HCl (Zofran) 4 mg IV Q8H PRN PRN PRN Reason: NAUSEA/VOMITING Pantoprazole Sodium (Protonix) 40 mg PO DAILY [facility] Last Admin: 08/24/19 09:07 Dose: 40 mg Documented by: Polysaccharide Iron Complex (Ferrex 150) 150 mg PO DAILYCM [facility] Last Admin: 08/24/19 09:06 Dose: 150 mg Documented by: Prochlorperazine Edisylate (Compazine Iv) 5 mg IV Q4H PRN PRN PRN Reason: Breakthrough Nausea/Vomiting Sodium Chloride () 10 - 40 ml IV UD PRN PRN Reason: SALINE FLUSH Last Admin: 08/23/19 21:50 Dose: 20 ml Documented by: Throat Lozenges (Cepacol Sore Throat Lozenge) 1 lozenge MUCOUS MEM Q2H PRN PRN PRN Reason: SORE THROAT Trazodone HCl (Desyrel) 50 mg PO QHS [facility] Last Admin: 08/23/19 21:50 Dose: 50 mg Documented by: Medical Necessity - Tobacco Use Smoking Status: Never smoker Tobacco Use: Non-smoker Assessment/Plan All Active Problems (Last Reviewed 07/15/19 @ 13:20 by Alessandra Valdivia) Hypoglycemia (Acute) CHF exacerbation (Acute) Pneumonia (Acute) Encephalopathy acute (Acute) Severe sepsis (Acute) Atrial fibrillation with RVR (Acute) HCAP (healthcare-associated pneumonia) (Acute) Recurrent right pleural effusion (Acute) Pulmonary hypertension (Acute) Cardiogenic shock (Acute) Bradycardia (Acute) Renal failure (ARF), acute on chronic (Acute) Acute hyperkalemia (Acute) Debility (Acute) Unresponsiveness (Resolved) History of respiratory failure with hypo (Resolved) Anemia (Ruled-out) 1. Severe sepsis secondary to healthcare associated pneumonia and E. coli cystitis-continue IV Zosyn. Albuterol and DuoNeb aerosols. Urine negative for strep and Legionella. Urine culture growing E. coli. Respiratory panel negative. Plan for transition to oral antibiotic regimen tomorrow. 2. Recurrent right pleural effusion status post right-sided thoracentesis 08/22/2019-Home Lasix regimen will be increased to 40 mg twice daily to prevent recurrent pleural effusions. Fluid transudative. 3. Chronic persistent atrial fibrillation with RVR-continue Eliquis, amiodarone. Metoprolol regimen increased. Cardiology following. Patient may require cardioversion in 3 weeks as outpatient. 4. Acute on chronic diastolic CHF-echocardiogram 07/30/2019 demonstrated an EF of 65%, stage II diastolic dysfunction, moderately severe tricuspid valve insufficiency, RVSP estimated to be 60 mmHg. Transitioned from IV Lasix to oral. Stable. 5. Type 2 diabetes tzzzwirf-[id number] with sliding scale insulin. 6. Chronic COPD-no exacerbation. As needed albuterol aerosol. 7. Chronic macrocytic anemia-stable, trend CBC. 8. Chronic kidney disease stage IV-stable, trend BMP. 9. Hypertension-stable, continue current regimen. 10. Hyperlipidemia-continue statin. 11. Anxiety and depression-continue Remeron. 12. GERD-continue PPI. DVT prophylaxis-Eliquis Discharge planning: [facility] when medically stable. This patient was seen by SHIRLEY Haynes under the supervision of Dr. Looney. <Johnny Looney - Last Filed: 08/24/19 11:32> - Physical Exam Vitals/I&O's: Vital Signs Temp Pulse Resp BP Pulse Ox 97.8 F 128 H 16 138/68 H 94 08/24/19 08:26 08/24/19 09:07 08/24/19 08:26 08/24/19 09:07 08/24/19 08:26 Oxygen Flow Rate (L/min) [4] 1 Oxygen Flow Rate (L/min) [3] 1 Oxygen Flow Rate (L/min) [2] 1 Oxygen Flow Rate (L/min) [1 ( 1 Initial Baseline)] Oxygen Flow Rate (L/min) 1 Oxygen Delivery Method [4] Nasal Cannula Oxygen Delivery Method [3] Nasal Cannula Oxygen Delivery Method [2] Nasal Cannula Oxygen Delivery Method [1 ( Nasal Cannula Initial Baseline)] Oxygen Delivery Method Room Air Weight: 103.5 kg Body Mass Index (BMI) 42.1 Finger Stick Blood Glucose 62 Intake and Output for Last 24 Hours 08/22/19 08/23/1908/23/20 23:59 23:59 23:59 Intake Total 1516.03 / 1516.03 1124.17 / 1324.17 410.71 / 410.71 Output Total 1500 / 1500 150 / 150 Balance 16.03 / 16.03 974.17 / 1174.17 410.71 / 410.71 Microbiology Past 72 Hours 08/20/19 14:10 Blood Culture (Wb) - Anticubital Right Blood Culture - Preliminary Staphylococcus aureus 08/20/19 14:25 Blood Culture (Wb) - Right Wrist Blood Culture - Preliminary No growth in 48 hours. 08/20/19 14:25 Urine, Catheterized Urine Culture - Final Presumptive E. coli Laboratory Results 08/23/19 12:18: POC Glucose 194 H 08/23/19 15:05: POC Glucose 245 H 08/23/19 21:48: POC Glucose 254 H 08/24/19 05:44: WBC 9.7, RBC 2.66 L, Hgb 7.8 L, Hct 26.7 L, MCV 100.4 H, MCH 29.3, MCHC 29.2 L, RDW Std Deviation 64.3 H, RDW Coeff of Alicia 17.7 H, Plt Count 244, MPV 10.9 08/24/19 05:44: Sodium 137, Potassium 4.0, Chloride 96 L, Carbon Dioxide 35.0 H, Anion Gap 6, BUN 43 H, Creatinine 1.40 H, Estim Creat Clear Calc 24.59, Est GFR (MDRD) Af Amer 47 L, Est GFR (MDRD) Non-Af 39 L, BUN/Creatinine Ratio 30.7 H, Glucose 205 H, Calcium 8.5 08/24/19 06:59: POC Glucose 194 H Current Medications Acetaminophen (Tylenol) 650 mg PO Q6H PRN PRN PRN Reason: Pain Score 1-10/Temp > 100.7 F Al Hydroxide/Mg Hydroxide (Mylanta Ii) 30 ml PO Q6H PRN PRN PRN Reason: Gastric Burning Albuterol Sulfate (Ventolin Aerosols) 2.5 mg INHALATION Q2H PRN PRN PRN Reason: SOB/Wheezing Amiodarone HCl (Cordarone) 400 mg PO BID [facility] Stop: 08/25/19 22:01 Last Admin: 08/24/19 06:09 Dose: 400 mg Documented by: Amiodarone HCl (Cordarone) 200 mg PO DAILY [facility] Apixaban (Eliquis) 2.5 mg PO BID [facility] Atorvastatin Calcium (Lipitor) 20 mg PO QHS [facility] Last Admin: 08/23/19 21:50 Dose: 20 mg Documented by: Dextrose (D50w Syringe) 0 gm IV X1 PRN; Protocol PRN Reason: Hypoglycemia Furosemide (Lasix) 40 mg PO BID@1000,1800 [facility] Last Admin: 08/24/19 09:07 Dose: 40 mg Documented by: Glucagon () 1 mg IM .X1 PRN PRN Reason: Hypoglycemia Guaifenesin (Robitussin) 10 ml PO Q4H PRN PRN PRN Reason: COUGH Hydralazine HCl (Apresoline Iv) 10 mg IV Q4H PRN PRN PRN Reason: SBP > 160 Piperacillin Sod/Tazobactam (Sod 3.375 gm/ Sodium Chloride) 50 mls @ 12.5 mls/hr IV Q8 [facility] Stop: 08/27/19 22:01 Last Infusion: 08/24/19 09:49 Dose: Infused Documented by: Sodium Chloride () 250 mls @ 15 mls/hr IV .[id number] PRN PRN Reason: Saline Flush Last Infusion: 08/24/19 05:49 Dose: 0 mls/hr Documented by: Sodium Chloride () 250 mls @ 15 mls/hr IV .[id number] PRN PRN Reason: Additional IVPB Infusion Insulin Human Lispro (Humalog Kwikpen (Bkc)) 0 unit SC ACHS [facility]; Protocol Last Admin: 08/24/19 07:00 Dose: 1 u Documented by: Ipratropium [place] (Atrovent) 0.5 mg INHALATION Q4H.RT [facility] Last Admin: 08/24/19 11:21 Dose: 0.5 mg Documented by: Metoprolol Tartrate (Lopressor (Beta Lucina)) 50 mg PO BID [facility] Last Admin: 08/24/19 09:07 Dose: 50 mg Documented by: Mirtazapine (Remeron) 7.5 mg PO QHS [facility] Last Admin: 08/23/19 21:51 Dose: 7.5 mg Documented by: Multi-Ingredient Cream (Eucerin) 1 applic TOPICAL 2200 [facility]; Protocol Last Admin: 08/23/19 21:50 Dose: 1 applicatio Documented by: Nitroglycerin (Nitrostat) 0.4 mg SUBLINGUAL Q5M PRN PRN Reason: CARDIAC/CHEST PAIN Nutritional Formula (Lactose Free) (Glucerna Shake) 120 ml PO 4X/DAY [facility] Last Admin: 08/24/19 09:06 Dose: 120 ml Documented by: Nystatin (Mycostatin Powder) 1 applic TOPICAL BID [facility]; Protocol Last Admin: 08/24/19 09:07 Dose: 1 applic Documented by: Ondansetron HCl (Zofran) 4 mg IV Q8H PRN PRN PRN Reason: NAUSEA/VOMITING Pantoprazole Sodium (Protonix) 40 mg PO DAILY [facility] Last Admin: 08/24/19 09:07 Dose: 40 mg Documented by: Polysaccharide Iron Complex (Ferrex 150) 150 mg PO DAILYCM [facility] Last Admin: 08/24/19 09:06 Dose: 150 mg Documented by: Prochlorperazine Edisylate (Compazine Iv) 5 mg IV Q4H PRN PRN PRN Reason: Breakthrough Nausea/Vomiting Sodium Chloride () 10 - 40 ml IV UD PRN PRN Reason: SALINE FLUSH Last Admin: 08/23/19 21:50 Dose: 20 ml Documented by: Throat Lozenges (Cepacol Sore Throat Lozenge) 1 lozenge MUCOUS MEM Q2H PRN PRN PRN Reason: SORE THROAT Trazodone HCl (Desyrel) 50 mg PO QHS [facility] Last Admin: 08/23/19 21:50 Dose: 50 mg Documented by: Assessment/Plan This patient was seen in conjunction with SHIRLEY Haynes . I have independently interviewed and examined the patient and reviewed pertinent historical, laboratory, and other data. Please refer to SHIRLEY Haynes note for details of this patient's presentation, findings, and recommendations. I have reviewed SHIRLEY Haynes note and concur with documented findings. In brief, Patient is a 78-year-old lady with recent hospitalization for influenza A infection with superimposed COPD exacerbation as well as congestive heart failure presented back to the emergency department shortness of breath. Progressive left lower lobe infiltrate and assessment of severe sepsis was made admitted to a monitored bed for subsequent management patient hospital stay complicated by A. fib with RVR as well as acute congestive heart failure with bilateral pleural effusion greater than left for which patient underwent thoracocentesis on 08/22/2019 Physical Examination: GENERAL: cooperative HEENT: Atraumatic; EYES; Anicteric, Normal Conjunctiva NECK; supple, normal thyroid, RESPIRATORY: Diminished to auscultation CARDIOVASCULAR: Irregular irregular tachycardic GI: soft, normoactive bowel sounds, : No Renal angle tenderness; EXTREMITIES: Bipedal edema edema, no clubbing, MUSCULOSKELETAL: no muscle waisting NEURO: Awake; no lateralizing signs. SKIN: No Rash PSYCH; Flat affect Assessment: 1. Severe sepsis ?Secondary to acute cystitis. 2. Paroxysmal A. fib with RVR 3. Acute on chronic congestive heart failure 4. Bilateral pleural effusion greater than left status post ultrasound-guided thoracocentesis (transudate) 5. 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 Anemia ?Secondary to anemia of chronic disorder 7. GERD 8. Dyslipidemia 9. COPD 10. Chronic kidney disease stage IV 11. Essential hypertension 12. Depression with anxiety Recommendations: 1. I have discussed the results of my overview and impressions with the patient 2. Options for management were reviewed Inpatient E&M: 39980 Subs Hosp L2
[2019-08-24 11:40] LABS: Bedside Glucose 230 mg/dL (70-110)
[2019-08-24] MEDS: APIXABAN 2.5 MG TABLET PO ×2 (11:56→21:02)
[2019-08-24 17:06] LABS: Bedside Glucose 292 mg/dL (70-110)
[2019-08-24] MEDS: traZODone 50 MG Tablet PO (21:02)
[2019-08-24] MEDS: Atorvastatin Calcium 20 MG Tablet PO (21:03)
[2019-08-24] MEDS: Mirtazapine 15 MG Tablet 7.5 MG PO (21:04)
[2019-08-24 22:46] LABS: Bedside Glucose 261 mg/dL (70-110)
[2019-08-25] VITALS (10 sets, daily range): BP systolic 120–132; BP diastolic 56–65; PULSE 92–122; RESP 16; TEMP 36.3–36.6; O2SAT 92–95
[2019-08-25 06:11] LABS: Hematocrit 27.5 % (37-47); Hemoglobin 8.3 g/dL (12.0-15.0); Mean Corp Hgb Conc 30.2 g/dL (32-36); Mean Corpuscular Hgb 30.3 pg (27.0-32.0); Mean Corpuscular Volume 100.4 fL (81-99); Mean Platelet Vol. 10.8 fl (6.2-12.0); Platelet Count 243 K/mm3 (150-450); RBC Distribution Width CV 17.7 % (11.6-14.6); Red Blood Count 2.74 M/mm3 (4.2-5.4); White Blood Count 9.7 K/mm3 (4.4-11.0)
[2019-08-25 06:36] LABS: Anion Gap 5 (5-15); BUN 44 mg/dL (7-18); BUN/Creat Ratio 30.3 RATIO (10-20); Calcium,Total 8.5 mg/dL (8.5-10.1); Chloride 94 mmol/L (98-107); Creatinine, Serum 1.45 mg/dL (0.55-1.02); EST Glomerular Filtration Rate 37 mL/min (>60); Est Glom Filt Rate - Afr Amer 45 mL/min (>60); Estimated Creatinine Clearance 23.74 ml/min; Glucose 230 mg/dL (74-106); Potassium 3.9 mmol/L (3.5-5.1); Sodium Level 134 mmol/L (136-145)
[2019-08-25] MEDS: Ipratropium 0.5 MG/2.5 ML SOLUTION INHALATION ×3 (07:00→15:07)
[2019-08-25] MEDS: Insulin Lispro 100 UNIT/ML INSULN.PEN SC ×2 (07:36→11:26)
[2019-08-25] MEDS: Pantoprazole Sodium 40 MG Tablet PO (09:09)
[2019-08-25] MEDS: Metoprolol Tartrate 50 MG Tablet PO (09:09)
[2019-08-25] MEDS: Glucerna Shake 120 ML LIQUID PO ×2 (09:09→13:31)
[2019-08-25] MEDS: Furosemide 40 MG Tablet PO (09:09)
[2019-08-25] MEDS: APIXABAN 2.5 MG TABLET PO (09:09)
[2019-08-25] MEDS: Nystatin Powder 15gm Bottle 1 APPLIC TOPICAL (09:09)
[2019-08-25] MEDS: Amiodarone 200 MG Tablet 400 MG PO (09:09)
[2019-08-25] MEDS: Iron Polysaccharide Complex 150 MG CAPSULE PO (09:09)
[2019-08-25 09:25] LABS: Bedside Glucose 225 mg/dL (70-110)
--- NOTE | 2019-08-25 09:27 | CASEMGMT ---
STEW faxed updates to [facility]. Kasey MERCEDES PROGRAM PROFESSIONAL
--- NOTE | 2019-08-25 11:14 | CASEMGMT ---
STEW called [facility] at [facility] and asked what she knew about patient as patient's daughter called in and said she wanted patient to go to the Inpatient Hospice Unit. Pearl asked if STEW could send updates. She said patient's daughter does not want her to go back to [facility]. Her goal is to get patient home on Hospice. STEW faxed updates to Hospice and will call Pearl asking if they can evaluate patient for inpatient unit. Kasey MERCEDES MSW
--- NOTE | 2019-08-25 11:27 | CASEMGMT ---
STEW faxed updates to [facility] at [facility]osp[facility]. STEW also called [facility] back and she said they would come out this afternoon and evaluate patient for the inpatient unit. Per LOSS PREVENTION INVESTIGATOR Serina patient's daughter was pretty insistent that Hospice told her they could take her in their unit. She was not open to discussing other options at this time. Await Hospice evaluation. Kasey MERCEDES MSW
[2019-08-25 11:41] LABS: Bedside Glucose 295 mg/dL (70-110)
[2019-08-25 11:45] LABS: Pathologist Comment/Body Fluid Reviewed
--- NOTE | 2019-08-25 12:01 | CASEMGMT ---
STEW received a call from [facility] at [facility]. She spoke with patient's daughter letting her know patient does not meet criteria for their inpatient unit. Janelle from Hospice will be in at 1p to have patient sign Hospice papers. The daughter then plans on patient coming to her home on [facility]. This can happen later today preferably before 4p. STEW spoke with patient and confirmed her plan is to go home on [facility]. She said physically she feels like she will be fine at home with daughter on [facility]. She was not sure if her daughter will transport her and told STEW to call her daughter regarding this. Kasey MERCEDES COSMETOLOGY PROFESSOR
--- NOTE | 2019-08-25 13:32 | PCM.DC ---
- Discharge Diagnoses Current Active Problems: Current Active and Chronic Problems (Last Reviewed 07/15/19 @ 13:20 by Alessandra Valdivia) Severe sepsis (Acute) Atrial fibrillation with RVR (Acute) HCAP (healthcare-associated pneumonia) (Acute) CHF (congestive heart failure) (Chronic) CKD (chronic kidney disease), stage IV (Chronic) Recurrent right pleural effusion (Acute) Pulmonary hypertension (Acute) You will use the following diet at home:: No restrictions Discharge Activity: Return to Normal Activity Allergies/Adverse Reactions: Allergies Penicillins [PCN] Allergy (Verified 08/20/19 13:39) Other shellfish derived Allergy (Verified 08/20/19 13:39) Other Medications to take at Discharge Alendronate Sodium 70 mg PO ELIZONDO 06/16/19 Ipratropium/Albuterol Sulfate [Duoneb] 3 ml INHALATION Q6H PRN PRN 06/16/19 Simvastatin 40 mg PO QHS 06/16/19 traZODone [Desyrel] 50 mg PO QHS 06/16/19 Apixaban [Eliquis] 2.5 mg PO BID 08/20/19 Cholecalciferol (VIT D3) [Vitamin D3] 1,000 unit PO DAILY 08/20/19 Fluticasone Propion/Salmeterol [Wixela 250-50 Inhub] 1 ea INHALATION BID 08/20/19 Glimepiride [Amaryl] 1 mg PO DAILY 08/20/19 Guaifenesin [Robitussin] 10 ml PO Q4H PRN PRN 08/20/19 Insulin Lispro [Humalog] See Protocol SQ TID 08/20/19 Iron Polysaccharide Complex [Ferrex 150] 150 mg PO DAILYCM 08/20/19 Mineral Oil/Petrolatum,White [Eucerin] 1 applic TOPICAL 0 08/20/19 Mirtazapine [Remeron] 7.5 mg PO QHS 08/20/19 Pantoprazole Sodium [Protonix] 40 mg PO DAILY 08/20/19 Polyethylene Glycol 3350 [Miralax] 17 gm PO DAILY 08/20/19 Senna/Docusate Sodium [Senokot-S] 1 tab PO BID 08/20/19 Amiodarone HCl [Cordarone] 200 mg PO DAILY #30 tab 08/25/19 Cephalexin [Keflex] 250 mg PO Q12 #20 cap 08/25/19 Furosemide [Lasix] 40 mg PO BID@1000,1800 #60 tab 08/25/19 Metoprolol Tartrate [Lopressor (beta dudley)] 50 mg PO BID #60 tab 08/25/19 The following prescriptions were given: Amiodarone HCl [Cordarone] 200 mg PO DAILY #30 tab Transmission Status: Pending to [facility] Cephalexin [Keflex] 250 mg PO Q12 #20 cap Transmission Status: Pending to [facility] Furosemide [Lasix] 40 mg PO BID@1000,1800 #60 tab Transmission Status: Pending to [facility] Metoprolol Tartrate [Lopressor (beta dudley)] 50 mg PO BID #60 tab Transmission Status: Pending to [facility] Test Results: Test results from this visit will be discussed in further detail at your follow-up appointment, if applicable. Please Follow Up With: Johnny Reyez DO When: Home with Hospice at discharge Proposed Discharge Date: 08/25/19
--- NOTE | 2019-08-25 13:36 | PCM.DC.SUM ---
<Neema Freedman - Last Filed: 08/25/19 13:45> Discharge Date and Diagnosis Date of Admission: 08/20/19 Date of Discharge: 08/25/19 - Primary Discharge Diagnosis Active and Suspected Problems (Last Reviewed 07/15/19 @ 13:20 by Alessandra Valdivia) 1. Severe sepsis secondary to healthcare associated pneumonia, E. coli cystitis and possible MSSA bacteremia 2. Recurrent transudative right pleural effusion status post right-sided thoracentesis 08/22/2019 3. Chronic persistent atrial fibrillation with RVR 4. Acute on chronic diastolic CHF 5. Type 2 diabetes mellitus 6. Chronic COPD 7. Chronic macrocytic anemia 8. Chronic kidney disease stage IV 9. Hypertension 10. Hyperlipidemia 11. Anxiety and depression 12. GERD - Secondary Discharge Diagnosis Chronic Problems (Last Reviewed 07/15/19 @ 13:20 by Alessandra Valdivia) Anxiety and depression (Chronic) CHF (congestive heart failure) (Chronic) CKD (chronic kidney disease), stage IV (Chronic) History of respiratory failure (Chronic) extubated 06/18/[address] [facility] [place] Paroxysmal atrial fibrillation (Chronic) Sick sinus syndrome (Chronic) Edema (Chronic) Anticoagulant long-term use (Chronic) Anemia, unspecified (Chronic) CKD (chronic kidney disease) (Chronic) Essential hypertension (Chronic) DM2 (diabetes mellitus, type 2) (Chronic) COPD (chronic obstructive pulmonary disease) (Chronic) GERD (gastroesophageal reflux disease) (Chronic) Methicillin resistant Staph aureus culture positive (Chronic) Cellulitis of right ankle (Chronic) Osteoporosis (Chronic) Anxiety (Chronic) GERD (gastroesophageal reflux disease) (Chronic) Insomnia (Chronic) Hyperlipidemia (Chronic) Hospital Course and Treatment Imaging Results: Diagnostic Data Chest CT 08/20/19 18:48 IMPRESSION: Moderate to large right pleural effusion. Marked atelectasis of the right lower lobe. Small left pleural effusion. Mild atelectasis of the left lower lobe. Pneumonia not excluded in the areas of atelectasis. Electronically Signed: Jasen Bright MD at 22:17 EDT , Service support , Thoracentesis Ultrasound 08/22/19 13:30 IMPRESSION: Ultrasound-guided right thoracentesis. Electronically Signed: Yonatan Howe, at 15:40 EDT , Service support , Chest X-Ray 08/22/19 15:05 IMPRESSION: Status post right thoracentesis. Minimal residual blunting of the right costophrenic angle. No evidence of pneumothorax. Electronically Signed: Yonatan Howe, at 15:25 EDT , Service support , Dr. Mcmullen- Learning Consultant Dr. Vickers- Cardiology Operations: None Procedures: None Summary of Care Provided: The patient is a 78 year old F admitted 08/20/2019 due to cough and dyspnea. 1. Severe sepsis secondary to healthcare associated pneumonia, E. coli cystitis, and possible MSSA bacteremia-IV Zosyn during admission. Urine negative for strep and Legionella. Urine culture growing E. coli. Respiratory panel negative. 1/2 blood cultures positive for MSSA. Afebrile. No leukocytosis. Clinically improved. Given hospice transition at discharge, did not repeat blood cultures. Oral Keflex at discharge for 10 days of additional treatment. Home with hospice at discharge. 2. Recurrent right pleural effusion status post right-sided thoracentesis 08/22/2019-Home Lasix regimen will be increased to 40 mg twice daily to prevent recurrent pleural effusions. Fluid transudative. 3. Chronic persistent atrial fibrillation with RVR-continue Eliquis, amiodarone. Metoprolol regimen increased. Heart rate stable at discharge on current amiodarone and metoprolol regimen. 4. Acute on chronic diastolic CHF-echocardiogram 07/30/2019 demonstrated an EF of 65%, stage II diastolic dysfunction, moderately severe tricuspid valve insufficiency, RVSP estimated to be 60 mmHg. Transitioned from IV Lasix to oral. Stable. 5. Type 2 diabetes mellitus-continue home insulin regimen. 6. Chronic COPD-no exacerbation. As needed albuterol aerosol. 7. Chronic macrocytic anemia-stable. 8. Chronic kidney disease stage IV-stable, at baseline. 9. Hypertension-stable, continue current regimen. 10. Hyperlipidemia-continue statin. 11. Anxiety and depression-continue Remeron. 12. GERD-continue PPI. General: Alert, Oriented x3, Cooperative HEENT: Atraumatic, PERRLA, EOMI, Normocephalic Neck: Supple, No JVD, Negative Carotid Bruits Lungs: Clear to auscultation, Diminished Cardiovascular: Atrial fibrillation, rate controlled Abdomen: Bowel Sounds Present, Soft, Non Tender, Non-Distended Extremities: No clubbing, No cyanosis, No edema, Capillary Refill Less than 3 Seconds Skin: No rashes, No breakdown Musculoskeletal: No Tenderness to Palpation of Joints or Extremities Neurological: Cranial nerves II-XII grossly intact Psych/Mental Status: Normal Affect, Appropriate Patient seen and examined prior to discharge. Physical assessment as noted above. Home with hospice at discharge. This patient was seen by SHIRLEY Haynes under the supervision of Dr. Wilde. - Physical Exam Vitals/I&O's: Vital Signs Temp Pulse Resp BP Pulse Ox 97.4 F L 93 16 122/65 H 92 08/25/19 09:00 08/25/19 10:57 08/25/19 10:57 08/25/19 09:00 08/25/19 09:00 Oxygen Flow Rate (L/min) [4] 1 Oxygen Flow Rate (L/min) [3] 1 Oxygen Flow Rate (L/min) [2] 1 Oxygen Flow Rate (L/min) [1 ( 1 Initial Baseline)] Oxygen Flow Rate (L/min) 1 Oxygen Delivery Method [4] Nasal Cannula Oxygen Delivery Method [3] Nasal Cannula Oxygen Delivery Method [2] Nasal Cannula Oxygen Delivery Method [1 ( Nasal Cannula Initial Baseline)] Oxygen Delivery Method Room Air Weight: 232 lb 5.875 oz Body Mass Index (BMI) 42.1 Finger Stick Blood Glucose 62 Intake and Output for Last 24 Hours 08/23/19 08/24/19 08/25/19 23:59 23:59 23:59 Intake Total 1124.17 / 1324.17 1615.50 / 1735.50 707.21 / 707.21 Output Total 150 / 150 600 / 700 400 / 400 Balance 974.17 / 1174.17 1015.50 / 1035.50 307.21 / 307.21 Microbiology Past 72 Hours 08/20/19 14:10 Blood Culture (Wb) - Anticubital Right Blood Culture - Preliminary Staphylococcus aureus 08/20/19 14:25 Blood Culture (Wb) - Right Wrist Blood Culture - Preliminary No growth in 48 hours. 08/20/19 14:25 Urine, Catheterized Urine Culture - Final Presumptive E. coli Laboratory Results 08/22/19 15:23: Fl Pathologist Comment Reviewed 08/24/19 16:55: POC Glucose 292 H 08/24/19 20:54: POC Glucose 261 H 08/25/19 05:30: WBC 9.7, RBC 2.74 L, Hgb 8.3 L, Hct 27.5 L, MCV 100.4 H, MCH 30.3, MCHC 30.2 L, RDW Std Deviation 65.0 H, RDW Coeff of Alicia 17.7 H, Plt Count 243, MPV 10.8 08/25/19 05:30: Sodium 134 L, Potassium 3.9, Chloride 94 L, Carbon Dioxide 35.0 H, Anion Gap 5, BUN 44 H, Creatinine 1.45 H, Estim Creat Clear Calc 23.74, Est GFR (MDRD) Af Amer 45 L, Est GFR (MDRD) Non-Af 37 L, BUN/Creatinine Ratio 30.3 H, Glucose 230 H, Calcium 8.5 08/25/19 07:34: POC Glucose 225 H 08/25/19 11:24: POC Glucose 295 H Current Medications Acetaminophen (Tylenol) 650 mg PO Q6H PRN PRN PRN Reason: Pain Score 1-10/Temp > 100.7 F Al Hydroxide/Mg Hydroxide (Mylanta Ii) 30 ml PO Q6H PRN PRN PRN Reason: Gastric Burning Albuterol Sulfate (Ventolin Aerosols) 2.5 mg INHALATION Q2H PRN PRN PRN Reason: SOB/Wheezing Amiodarone HCl (Cordarone) 400 mg PO BID [facility] Stop: 08/25/19 22:01 Last Admin: 08/25/19 09:09 Dose: 400 mg Documented by: Amiodarone HCl (Cordarone) 200 mg PO DAILY [facility] Apixaban (Eliquis) 2.5 mg PO BID [facility] Last Admin: 08/25/19 09:09 Dose: 2.5 mg Documented by: Atorvastatin Calcium (Lipitor) 20 mg PO QHS [facility] Last Admin: 08/24/19 21:03 Dose: 20 mg Documented by: Dextrose (D50w Syringe) 0 gm IV X1 PRN; Protocol PRN Reason: Hypoglycemia Furosemide (Lasix) 40 mg PO BID@1000,1800 [facility] Last Admin: 08/25/19 09:09 Dose: 40 mg Documented by: Glucagon () 1 mg IM .X1 PRN PRN Reason: Hypoglycemia Guaifenesin (Robitussin) 10 ml PO Q4H PRN PRN PRN Reason: COUGH Hydralazine HCl (Apresoline Iv) 10 mg IV Q4H PRN PRN PRN Reason: SBP > 160 Piperacillin Sod/Tazobactam (Sod 3.375 gm/ Sodium Chloride) 50 mls @ 12.5 mls/hr IV Q8 [facility] Stop: 08/27/19 22:01 Last Admin: 08/25/19 13:31 Dose: 12.5 mls/hr Documented by: Sodium Chloride () 250 mls @ 15 mls/hr IV .[id number] PRN PRN Reason: Saline Flush Last Infusion: 08/25/19 12:30 Dose: 0 mls/hr Documented by: Sodium Chloride () 250 mls @ 15 mls/hr IV .[id number] PRN PRN Reason: Additional IVPB Infusion Insulin Human Lispro (Humalog Kwikpen (Bkc)) 0 unit SC ACHS [facility]; Protocol Last Admin: 08/25/19 11:26 Dose: 3 u Documented by: Ipratropium Manly (Atrovent) 0.5 mg INHALATION Q4H.RT [facility] Last Admin: 08/25/19 10:57 Dose: 0.5 mg Documented by: Metoprolol Tartrate (Lopressor (Beta Lucina)) 50 mg PO BID [facility] Last Admin: 08/25/19 09:09 Dose: 50 mg Documented by: Mirtazapine (Remeron) 7.5 mg PO QHS [facility] Last Admin: 08/24/19 21:04 Dose: 7.5 mg Documented by: Multi-Ingredient Cream (Eucerin) 1 applic TOPICAL 2200 [facility]; Protocol Last Admin: 08/24/19 21:02 Dose: 1 applicatio Documented by: Nitroglycerin (Nitrostat) 0.4 mg SUBLINGUAL Q5M PRN PRN Reason: CARDIAC/CHEST PAIN Nutritional Formula (Lactose Free) (Glucerna Shake) 120 ml PO 4X/DAY [facility] Last Admin: 08/25/19 13:31 Dose: 120 ml Documented by: Nystatin (Mycostatin Powder) 1 applic TOPICAL BID [facility]; Protocol Last Admin: 08/25/19 09:09 Dose: 1 applic Documented by: Ondansetron HCl (Zofran) 4 mg IV Q8H PRN PRN PRN Reason: NAUSEA/VOMITING Pantoprazole Sodium (Protonix) 40 mg PO DAILY [facility] Last Admin: 08/25/19 09:09 Dose: 40 mg Documented by: Polysaccharide [facility] 150) [facility] Last Admin: 08/25/19 09:09 Dose: 150 mg Documented by: Prochlorperazine Edisylate (Compazine Iv) 5 mg IV Q4H PRN PRN PRN Reason: Breakthrough Nausea/Vomiting Sodium Chloride () 10 - 40 ml IV UD PRN PRN Reason: SALINE FLUSH Last Admin: 08/23/19 21:50 Dose: 20 ml Documented by: Throat Lozenges (Cepacol Sore Throat Lozenge) 1 lozenge MUCOUS MEM Q2H PRN PRN PRN Reason: SORE THROAT Trazodone HCl (Desyrel) 50 mg PO QHS [facility] Last Admin: 08/24/19 21:02 Dose: 50 mg Documented by: Home Medications: Medications to take at Discharge Alendronate Sodium 70 mg PO ELIZONDO 06/16/19 Ipratropium/Albuterol Sulfate [Duoneb] 3 ml INHALATION Q6H PRN PRN 06/16/19 Simvastatin 40 mg PO QHS 06/16/19 traZODone [Desyrel] 50 mg PO QHS 06/16/19 Apixaban [Eliquis] 2.5 mg PO BID 08/20/19 Cholecalciferol (VIT D3) [Vitamin D3] 1,000 unit PO DAILY 08/20/19 Fluticasone Propion/Salmeterol [Wixela 250-50 Inhub] 1 ea INHALATION BID 08/20/19 Glimepiride [Amaryl] 1 mg PO DAILY 08/20/19 Guaifenesin [Robitussin] 10 ml PO Q4H PRN PRN 08/20/19 Insulin Lispro [Humalog] See Protocol SQ TID 08/20/19 Iron Polysaccharide Complex [Ferrex 150] 150 mg PO DAILY 08/20/19 Mineral Oil/Petrolatum,White [Eucerin] 1 applic TOPICAL 2200 08/20/19 Mirtazapine [Remeron] 7.5 mg PO QHS 08/20/19 Pantoprazole Sodium [Protonix] 40 mg PO DAILY 08/20/19 Polyethylene Glycol 3350 [Miralax] 17 gm PO DAILY 08/20/19 Senna/Docusate Sodium [Senokot-S] 1 tab PO BID 08/20/19 Amiodarone HCl [Cordarone] 200 mg PO DAILY #30 tab 08/25/19 Cephalexin [Keflex] 250 mg PO Q12 #20 cap 08/25/19 Furosemide [Lasix] 40 mg PO BID@1000,1800 #60 tab 08/25/19 Metoprolol Tartrate [Lopressor (beta lucina)] 50 mg PO BID #60 tab 08/25/19 Following Prescrptions Were Given to Patient: Amiodarone HCl [Cordarone] 200 mg PO DAILY #30 tab Transmission Status: Received by [facility] Cephalexin [Keflex] 250 mg PO Q12 #20 cap Transmission Status: Received by [facility] Furosemide [Lasix] 40 mg PO BID@1000,1800 #60 tab Transmission Status: Received by [facility] Metoprolol Tartrate [Lopressor (beta lucina)] 50 mg PO BID #60 tab Transmission Status: Received by [facility] Primary Care Physician: Fma Nieves Chi, MD [Primary Care Provider] - Please Follow Up With: Johnny Reyez DO When: Home with Hospice at discharge Disposition: Home with Hospice Minutes spent on discharge:: 35 Patient Condition:: Stable Medical Necessity - Tobacco Use Smoking Status: Never smoker Tobacco Use: Non-smoker Meaningful Use Info Meaningful Use Diagnoses (Choose all that apply): CHF - CHF OPAL/ARB ordered at discharge?: No Reason OPAL/ARB not ordered?: Worsening renal dysfunctn Documented LVEF (%): 65 <Destiny Wilde E - Last Filed: 08/25/19 14:02> Discharge Date and Diagnosis - Secondary Discharge Diagnosis Chronic Problems (Last Reviewed 07/15/19 @ 13:20 by Alessandra Valdivia) Anxiety and depression (Chronic) CHF (congestive heart failure) (Chronic) CKD (chronic kidney disease), stage IV (Chronic) History of respiratory failure (Chronic) extubated 06/18/[address] [facility] [place] Paroxysmal atrial fibrillation (Chronic) Sick sinus syndrome (Chronic) Edema (Chronic) Anticoagulant long-term use (Chronic) Anemia, unspecified (Chronic) CKD (chronic kidney disease) (Chronic) Essential hypertension (Chronic) DM2 (diabetes mellitus, type 2) (Chronic) COPD (chronic obstructive pulmonary disease) (Chronic) GERD (gastroesophageal reflux disease) (Chronic) Methicillin resistant Staph aureus culture positive (Chronic) Cellulitis of right ankle (Chronic) Osteoporosis (Chronic) Anxiety (Chronic) GERD (gastroesophageal reflux disease) (Chronic) Insomnia (Chronic) Hyperlipidemia (Chronic) Hospital Course and Treatment Summary of Care Provided: Hospitalist note: Discharge summary above reviewed and I concur with above discharge treatment plan. Patient was admitted for shortness of breath and cough and she was found to have severe sepsis secondary to healthcare associated pneumonia, E. coli acute cystitis and probable MSSA bacteremia. On admission, patient had chest x-ray that revealed right lower lobe infiltrate. CT scan chest without contrast revealed moderate to large right pleural effusion, small left pleural effusion and pneumonia cannot be excluded in the right lower lobe. She was treated with IV vancomycin and Zosyn and later, vancomycin discontinued because MRSA screen was negative. Respiratory panel for viruses were negative. Pneumococcal and Legionella antigen were negative. Nasal swab for influenza a and B were negative as well. Urine culture revealed presumptive E. coli which was sensitive to Zosyn. 1 bottle of blood culture revealed MSSA. On admission, patient was in A. fib with RVR in context of history of paroxysmal A. fib which is also attributed to acute infection and sepsis. She does have a history of recurrent transudative right pleural effusion, thoracentesis done and 1050 cc of tammy-colored fluid was drained. With above-mentioned treatment, patient symptoms improved. Her heart rate stabilized and she remained afebrile. No repeat blood culture done because patient decided to go home with hospice. The other bottle of the blood culture revealed no growth in 48 hours. Also, she was found to have acute on chronic diastolic CHF which was treated with IV Lasix. Her symptoms improved and she remained on room air. After discussion with the patient's daughter and patient herself, they decided to go home with hospice. Patient discharged home with hospice in a stable condition, discharged on Keflex for additional 10 days of treatment, discharged on Lasix 40 twice daily, metoprolol 50 twice daily, continued on her other previous home medications, recommended follow-up with Dr. Reyez, hospice and palliative care, upon discharge. - Physical Exam General: Alert, Oriented x3, Cooperative, No apparent distress. HEENT: Atraumatic, PERRLA, EOMI. Neck: Supple, No JVD, Negative Carotid Bruits, Trachea Midline, Thyroid Normal. Lungs: Diminished breath sounds bilateral, otherwise clear no rhonchi, No wheeze, No rales. Cardiovascular: irregular Rhythm, Normal S1, Normal S2, PMI Normal. Abdomen: Bowel Sounds Present, Soft, Non Tender, Non-Distended, No Hepato-splenomegaly. Extremities: No clubbing, No cyanosis, No edema Skin: No rashes, No breakdown Neurological: Cranial nerves are intact, neuro grossly intact Vital Signs are stable. This note was generated with [employer] dictation software. It may contain incorrect words, spelling, and punctuation that were not noted in checking the note before signing. - Physical Exam Vitals/I&O's: Vital Signs Temp Pulse Resp BP Pulse Ox 97.4 F L 93 16 122/65 H 92 08/25/19 09:00 08/25/19 10:57 08/25/19 10:57 08/25/19 09:00 08/25/19 09:00 Oxygen Flow Rate (L/min) [4] 1 Oxygen Flow Rate (L/min) [3] 1 Oxygen Flow Rate (L/min) [2] 1 Oxygen Flow Rate (L/min) [1 ( 1 Initial Baseline)] Oxygen Flow Rate (L/min) 1 Oxygen Delivery Method [4] Nasal Cannula Oxygen Delivery Method [3] Nasal Cannula Oxygen Delivery Method [2] Nasal Cannula Oxygen Delivery Method [1 ( Nasal Cannula Initial Baseline)] Oxygen Delivery Method Room Air Weight: 232 lb 5.875 oz Body Mass Index (BMI) 42.1 Finger Stick Blood Glucose 62 Intake and Output for Last 24 Hours 08/23/19 08/24/19 08/25/19 23:59 23:59 23:59 Intake Total 1124.17 / 1324.17 1615.50 / 1735.50 707.21 / 707.21 Output Total 150 / 150 600 / 700 400 / 400 Balance 974.17 / 1174.17 1015.50 / 1035.50 307.21 / 307.21 Microbiology Past 72 Hours 08/20/19 14:10 Blood Culture (Wb) - Anticubital Right Blood Culture - Preliminary Staphylococcus aureus 08/20/19 14:25 Blood Culture (Wb) - Right Wrist Blood Culture - Preliminary No growth in 48 hours. 08/20/19 14:25 Urine, Catheterized Urine Culture - Final Presumptive E. coli Laboratory Results 08/22/19 15:23: Fl Pathologist Comment Reviewed 08/24/19 16:55: POC Glucose 292 H 08/24/19 20:54: POC Glucose 261 H 08/25/19 05:30: WBC 9.7, RBC 2.74 L, Hgb 8.3 L, Hct 27.5 L, MCV 100.4 H, MCH 30.3, MCHC 30.2 L, RDW Std Deviation 65.0 H, RDW Coeff of Alicia 17.7 H, Plt Count 243, MPV 10.8 08/25/19 05:30: Sodium 134 L, Potassium 3.9, Chloride 94 L, Carbon Dioxide 35.0 H, Anion Gap 5, BUN 44 H, Creatinine 1.45 H, Estim Creat Clear Calc 23.74, Est GFR (MDRD) Af Amer 45 L, Est GFR (MDRD) Non-Af 37 L, BUN/Creatinine Ratio 30.3 H, Glucose 230 H, Calcium 8.5 08/25/19 07:34: POC Glucose 225 H 08/25/19 11:24: POC Glucose 295 H Current Medications Acetaminophen (Tylenol) 650 mg PO Q6H PRN PRN PRN Reason: Pain Score 1-10/Temp > 100.7 F Al Hydroxide/Mg Hydroxide (Mylanta Ii) 30 ml PO Q6H PRN PRN PRN Reason: Gastric Burning Albuterol Sulfate (Ventolin Aerosols) 2.5 mg INHALATION Q2H PRN PRN PRN Reason: SOB/Wheezing Amiodarone HCl (Cordarone) 400 mg PO BID [facility] Stop: 08/25/19 22:01 Last Admin: 08/25/19 09:09 Dose: 400 mg Documented by: Amiodarone HCl (Cordarone) 200 mg PO DAILY [facility] Apixaban (Eliquis) 2.5 mg PO BID [facility] Last Admin: 08/25/19 09:09 Dose: 2.5 mg Documented by: Atorvastatin Calcium (Lipitor) 20 mg PO QHS [facility] Last Admin: 08/24/19 21:03 Dose: 20 mg Documented by: Dextrose (D50w Syringe) 0 gm IV X1 PRN; Protocol PRN Reason: Hypoglycemia Furosemide (Lasix) 40 mg PO BID@1000,1800 [facility] Last Admin: 08/25/19 09:09 Dose: 40 mg Documented by: Glucagon () 1 mg IM .X1 PRN PRN Reason: Hypoglycemia Guaifenesin (Robitussin) 10 ml PO Q4H PRN PRN PRN Reason: COUGH Hydralazine HCl (Apresoline Iv) 10 mg IV Q4H PRN PRN PRN Reason: SBP > 160 Piperacillin Sod/Tazobactam (Sod 3.375 gm/ Sodium Chloride) 50 mls @ 12.5 mls/hr IV Q8 [facility] Stop: 08/27/19 22:01 Last Admin: 08/25/19 13:31 Dose: 12.5 mls/hr Documented by: Sodium Chloride () 250 mls @ 15 mls/hr IV .[id number] PRN PRN Reason: Saline Flush Last Infusion: 08/25/19 12:30 Dose: 0 mls/hr Documented by: Sodium Chloride () 250 mls @ 15 mls/hr IV .[id number] PRN PRN Reason: Additional IVPB Infusion Insulin Human Lispro (Humalog Kwikpen (Bkc)) 0 unit SC ACHS [facility]; Protocol Last Admin: 08/25/19 11:26 Dose: 3 u Documented by: Ipratropium Manly (Atrovent) 0.5 mg INHALATION Q4H.RT [facility] Last Admin: 08/25/19 10:57 Dose: 0.5 mg Documented by: Metoprolol Tartrate (Lopressor (Beta Lucina)) 50 mg PO BID [facility] Last Admin: 08/25/19 09:09 Dose: 50 mg Documented by: Mirtazapine (Remeron) 7.5 mg PO QHS [facility] Last Admin: 08/24/19 21:04 Dose: 7.5 mg Documented by: Multi-Ingredient Cream (Eucerin) 1 applic TOPICAL 2200 [facility]; Protocol Last Admin: 08/24/19 21:02 Dose: 1 applicatio Documented by: Nitroglycerin (Nitrostat) 0.4 mg SUBLINGUAL Q5M PRN PRN Reason: CARDIAC/CHEST PAIN Nutritional Formula (Lactose Free) (Glucerna Shake) 120 ml PO 4X/DAY [facility] Last Admin: 08/25/19 13:31 Dose: 120 ml Documented by: Nystatin (Mycostatin Powder) 1 applic TOPICAL BID [facility]; Protocol Last Admin: 08/25/19 09:09 Dose: 1 applic Documented by: Ondansetron HCl (Zofran) 4 mg IV Q8H PRN PRN PRN Reason: NAUSEA/VOMITING Pantoprazole Sodium (Protonix) 40 mg PO DAILY [facility] Last Admin: 08/25/19 09:09 Dose: 40 mg Documented by: Polysaccharide Iron Complex (Ferrex 150) [facility] Last Admin: 08/25/19 09:09 Dose: 150 mg Documented by: Prochlorperazine Edisylate (Compazine Iv) 5 mg IV Q4H PRN PRN PRN Reason: Breakthrough Nausea/Vomiting Sodium Chloride () 10 - 40 ml IV UD PRN PRN Reason: SALINE FLUSH Last Admin: 08/23/19 21:50 Dose: 20 ml Documented by: Throat Lozenges (Cepacol Sore Throat Lozenge) 1 lozenge MUCOUS MEM Q2H PRN PRN PRN Reason: SORE THROAT Trazodone HCl (Desyrel) 50 mg PO QHS [facility] Last Admin: 08/24/19 21:02 Dose: 50 mg Documented by: Disposition: Home with Hospice Minutes spent on discharge:: 33 Patient Condition:: Stable Meaningful Use Info Meaningful Use Diagnoses (Choose all that apply): CHF - CHF OPAL/ARB ordered at discharge?: No Reason OPAL/ARB not ordered?: Worsening renal dysfunctn Documented LVEF (%): 65 Inpatient E&M: [id number] Disch Hosp
--- NOTE | 2019-08-25 13:42 | CASEMGMT ---
SW spoke with patient's daughter and confirmed that the plan is home with Hospice today. She said that is accurate. She said she needs SW to set up transportation to get patient home. SW explained it is possible insurance may not cover this, but SW can set it up. She said they will private pay if insurance doesn't pay. SW told her a Hospice nurse will meet them at her home when patient gets there. SW told her SW will set up transport and then let her know a time. STEW called [facility] and arranged for patient to get picked up at 330 via cot. SW called patient's daughter and let her know this information. SW also asked which pharmacy she prefers meds to go to and she said [facility] in [place]. SW also let Janelle with Hospice know about pick remover time. RN, personal secretary, Hospice, patient's daughter, and patient are all aware of d/c time. Plan: d/c home with daughter with [facility]. [facility] transported via cot. Kasey MERCEDES MSW
--- NOTE | 2019-08-25 13:49 | NURSING ---
Called report to Karina SANTORO at [facility]
== END 2019-08-25 15:45 | disposition hospice, home (50) | DRG 871 ==
LOC: ED 14:54 → ICU 16:22 → PCU 08-23 12:47
PROVIDERS: Internal Medicine; Nurse Practitioner Family; Admitting Provider Family Medicine; Emergency Provider Emergency Medicine; PCP Family Medicine Geriatric Medicine; Visit Provider Hospitalist
DX: A41.9 Sepsis, unspecified organism (principal); J18.9 Pneumonia, unspecified organism; I50.33 Acute on chronic diastolic (congestive) heart failure; N18.4 Chronic kidney disease, stage 4 (severe); I13.0 Hypertensive heart and chronic kidney disease with heart failure and stage 1 through stage 4 chronic kidney disease, or unspecified chronic kidney disease; I48.19 Other persistent atrial fibrillation; J44.0 Chronic obstructive pulmonary disease with (acute) lower respiratory infection; J90 Pleural effusion, not elsewhere classified; N30.00 Acute cystitis without hematuria; I49.5 Sick sinus syndrome; R65.20 Severe sepsis without septic shock; E11.22 Type 2 diabetes mellitus with diabetic chronic kidney disease; D53.9 Nutritional anemia, unspecified; E78.5 Hyperlipidemia, unspecified; K21.9 Gastro-esophageal reflux disease without esophagitis; Z66 Do not resuscitate; Z79.01 Long term (current) use of anticoagulants; Z79.4 Long term (current) use of insulin; Y95 Nosocomial condition; B96.20 Unspecified Escherichia coli [E. coli] as the cause of diseases classified elsewhere; B95.61 Methicillin susceptible Staphylococcus aureus infection as the cause of diseases classified elsewhere; F41.8 Other specified anxiety disorders; Z51.5 Encounter for palliative care
CPT/HCPCS: 32555; 36415; 71045; 71046; 71250; 80048; 80053; 81001; 82607; 82728; 82945; 82962; 83540; 83550; 83605; 83615; 83735; 83880; 84100; 84157; 84443; 84484; 85025; 85027; 85045; 85610; 85730; 87040; 87077; 87086; 87088; 87186; 87449; 87633; 87641; 87804; 88108; 88305; 88313; 89050; 93005; 94640; 94762; 97116; 97162; 97166; 97530; 99285; J7030; J7040; J7050; A4216; J1940

== ENCOUNTER → 2019-10-06 12:27 | Outpatient (CLI) | payer SELFPAY ==
[2019-08-20 17:22] VITALS: BMI 42.1
--- NOTE | 2019-10-06 12:29 | US_ITS ---
PROCEDURE: ULTRASOUND GUIDED THORACENTESIS. DATE: October 06, 2019. INDICATION: Female, 78 years old. Right pleural effusion. PHYSICIAN: Yonatan Howe M.D. PROCEDURE: The risks, benefits, and alternatives to the procedure were explained to the patient. The specific risks of bleeding, infection, and pneumothorax requiring chest tube insertion were discussed and accepted. Written informed consent was obtained. Ultrasonographic evaluation of the right lower pleural space was carried out. An adequate pocket was identified. The patient was placed in the sitting, upright position. The overlying skin was prepped and draped in sterile fashion. 1% lidocaine was administered subcutaneously for local anesthesia. Under ultrasound guidance, a 5 [place] thoracentesis needle/catheter system was advanced into the right posterior lower pleural fluid collection. Approximately 900 mL of tammy-colored fluid was drained. The catheter was removed, and a sterile dressing was applied. The patient tolerated the procedure well. A chest x-ray was ordered. US/Thoracentesis W US IMPRESSION: Ultrasound-guided right thoracentesis. Electronically Signed: Yonatan Howe, at 14:11 EDT , Service support ,
--- NOTE | 2019-10-06 13:20 | RAD_ITS ---
STUDY: X-RAY CHEST REASON FOR EXAM: Female, 78 years old. POST THORA TECHNIQUE: AP inspiration and expiration views. COMPARISON: Comparison is made with prior study August 22, 2019. FINDINGS: The patient is status post right thoracentesis. There is no evidence of pneumothorax. Mild degree of residual bilateral pleural-parenchymal changes are seen. RAD/Chest Insp/Exp 2 View IMPRESSION: Status post right thoracentesis. There is no evidence of pneumothorax. Electronically Signed: Yonatan Howe, at 13:38 EDT , Service support ,
[2019-10-06 13:35] VITALS: BP 111/52; BP 98/62; PULSE 113; PULSE 97; RESP 16; RESP 18; O2SAT 94; O2SAT 97; O2SAT 98
== END ==
PROVIDERS: PCP Family Medicine Geriatric Medicine; Visit Provider Nurse Practitioner Acute Care
DX: J90 Pleural effusion, not elsewhere classified (principal)
CPT/HCPCS: 32555; 71046